=== PATIENT | female | born 1955 | race Caucasian/White ===

== ENCOUNTER → 2020-02-22 11:09 | Outpatient (CLI) | payer MEDICARE, SELFPAY ==
--- NOTE | ~2020-02-22 | MM_ITS ---
EXAMINATION: MM screening [facility] BI w tessie HISTORY: Screening mammogram TECHNIQUE: Craniocaudal and mediolateral oblique 3-D tomosynthesis images were obtained and synthetic 2-D images were generated. CAD analysis was submitted and interpreted. COMPARISON: 10/19/2018, 10/09/2017, 05/22/2016 BREAST PARENCHYMAL COMPOSITION: The breasts are almost entirely fatty. FINDINGS: There is no evidence of suspicious mass, calcification, or architectural distortion to sugg est malignancy in either breast. There has been no suspicious interval change. IMPRESSION: 1. No mammographic evidence of malignancy. 2. Recommend routine screening mammography in one year. BI-RADS Category 1: Negative Reviewed, dictated and finalized at location A.
== END ==
PROVIDERS: Visit Provider Nurse Practitioner Family
DX: Z12.31 Encounter for screening mammogram for malignant neoplasm of breast (principal)
CPT/HCPCS: 77063; 77067

== ENCOUNTER → 2021-06-20 12:02 | Outpatient (CLI) | payer MEDICARE, SELFPAY ==
--- NOTE | ~2021-06-20 | MM_ITS ---
EXAMINATION: MM screening [facility] BI w tessie HISTORY: Screening mammogram TECHNIQUE: Craniocaudal and mediolateral oblique 3-D tomosynthesis images were obtained and synthetic 2-D images were generated. CAD analysis was submitted and interpreted. COMPARISON: 02/22/2020 10/11/2018, 10/09/2017 BREAST PARENCHYMAL COMPOSITION: The breasts are almost entirely fatty. FINDINGS: There is no evidence of suspicious mass, calcification, or architectural distortion to sugg est malignancy in either breast. There has been no suspicious interval change. IMPRESSION: 1. No mammographic evidence of malignancy. 2. Recommend routine screening mammography in one year. BI-RADS Category 1: Negative Reviewed, dictated and finalized at location A. 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
== END ==
PROVIDERS: PCP Nurse Practitioner Family; Visit Provider Nurse Practitioner Family
DX: Z12.31 Encounter for screening mammogram for malignant neoplasm of breast (principal); M79.644 Pain in right finger(s)
CPT/HCPCS: 77063; 77067

== ENCOUNTER → 2022-03-18 10:45 | Outpatient (CLI) | payer MEDICARE, SELFPAY ==
--- NOTE | ~2022-03-18 | XR_ITS ---
XR hip LT min 2V 03/18/2022 11:10 Indication: Left hip pain Procedure: 2 views left hip Comparison: No prior studies for comparison. Findings: There is mild osteoarthritis of the left hip. No fracture, subluxation or dislocation no si gnificant soft tissue abnormality. No foreign bodies. Impression: 1: Mild osteoarthritis of the left hip. Reviewed, dictated and finalized at location B. Impression: 1: Mild osteoarthritis of the left hip.
--- NOTE | ~2022-03-18 | XR_ITS ---
EXAMINATION: XR lumbar spine 2-3V DATE: 03/18/2022 11:11 INDICATION: Low back pain. TECHNIQUE: 3 views of lumbar spine were obtained. COMPARISON: CT abdomen and pelvis 10/24/2018 FINDINGS: There is 3 degrees levocurvature of upper lumbar spine. There is 5 degrees dextrocurvature of lower lumbar spine. There is 7 mm anterolisthesis of L4 on L5. Vertebral body heights are normal. There is mild chronic anterior wedging of T12 vertebral body. There is mildly decreased disc height a t L4-L5 and severely decreased disc height at L5-S1. There is multilevel facet joint osteoarthritis, severe in lower lumbar spine. 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 Surgical clips in the right upper quadrant are likely from cholecystectomy. There are stones in left renal pelvis. IMPRESSION: 1. Severe lower lumbar spondylosis. 2. Stones in left renal pelvis. Reviewed, dictated and finalized at location A.
== END ==
PROVIDERS: PCP Nurse Practitioner Family; Visit Provider Nurse Practitioner Family
DX: M47.896 Other spondylosis, lumbar region (principal); M17.12 Unilateral primary osteoarthritis, left knee
CPT/HCPCS: 72100; 73502

== ENCOUNTER → 2022-04-03 12:37 | Outpatient (CLI) | payer MEDICARE, SELFPAY ==
--- NOTE | ~2022-04-03 | DEXA_ITS ---
Bone Density Report Name: JACOB PENALOZA Age: 66 Sex: Female Ethnicity: White Date of : 1955 Indication: osteopenia; height loss; postmenopausal Referring Provider: Blair, Daly Zapien Study: Bone densitometry was performed. Exam Date: April 03, 2022 Accession number: [id number] Bone Density: Region BMD T-score Z-score Classification AP Spine (L1-L4) 0.767 -2.5 -0.6 Osteoporosis Femoral Neck (Left) 0.632 -2.0 -0.3 Osteopenia Total Hip (Left) 0.956 0.1 1.5 Normal Femoral Neck (Right) 0.753 -0.9 0.8 Normal Total Hip (Right) 0.888 -0.4 0.9 Normal Total Hip Mean 0.922 -0.2 1.2 Normal World Health Organization criteria for BMD impression classify patients as: Normal (T-score at or above -1.0), Osteopenia (T-score between -1.0 and -2.5), or Osteoporosis (T-score at or below -2.5). 10-year Fracture Risk: FRAX not reported because: Some T-score for Spine Total or Hip Total or Femoral Neck at or below -2.5 Previous Exams: Region Exam Age BMD T-score BMD Change BMD Change Date g/cm2 vs Baseline vs Previous AP Spine(L1-L4) 04/03/2022 66 0.767 -2.5 -0.056 -0.056 06/11/2005 49 0.823 -2.0 Total Hip(Left) 04/03/2022 66 0.956 0.1 -0.127* -0.127* 06/11/2005 49 1.082 1.1 Total Hip(Right) 04/03/2022 66 0.888 -0.4 -0.214* -0.214* 06/11/2005 49 1.102 1.3 *Denotes significance at 95% confidence level, LSC for AP Spine = 0.022 g/cm2, LSC for Total Hip = 0.027 g/cm2 Clinical Information Provided by Patient: Has used the following medications: Vitamin D, MTV Patient maximum height was 63.0 Menopause Age: 49 No regular weight bearing exercise Drinks caffeinated beverages Onset of menses at age 13 Number of children 2 Impression: The patient has osteoporosis, based on the Total Spine T-score. The BMD for the Total Hip(Left) decreased, changing by -0.127 since the last DXA exam. The BMD for the Total Hip(Right) decreased, changing by -0.214 since the last DXA exam. Discussion: INCREASED RISK OF FRACTURE. BONE DENSITY IS UNDESIRABLY LOW AT ONE OR MORE SKELETAL SITES, CONSISTENT WITH POSTMENOPAUSAL OSTEOPOROSIS. This patient's lowest T-score meets the World Health Organization's (WHO) criteria for osteoporosis at one or more sites (T-score -2.5 or below). In untreated patients, the risk of osteoporotic fracture increases approximately two-fold for each 1.0 SD decrease in T-score. Low
== END ==
PROVIDERS: PCP Nurse Practitioner Family; Visit Provider Nurse Practitioner Family
DX: Z78.0 Asymptomatic menopausal state (principal); M81.0 Age-related osteoporosis without current pathological fracture; M85.852 Other specified disorders of bone density and structure, left thigh
CPT/HCPCS: 77080

== ENCOUNTER 2022-04-20 11:13 | Emergency (ER) | payer MEDICARE, SELFPAY ==
[2022-04-20 12:30] VITALS: BP 157/89; PULSE 107; RESP 20; TEMP 36.7; O2SAT 99
--- NOTE | 2022-04-20 12:47 | ED.FEMALEGU ---
HPI - Female Genitourinary General Chief complaint: Urogenital-Female Stated complaint: UTI Time Seen by Provider: 04/20/22 12:47 Source: patient Mode of arrival: ambulatory Limitations: no limitations History of Present Illness HPI Narrative: 66 y/o female with history of renal stones, presented for c/o blood drop on underwear today. Endorses occasional dysuria, urgency and frequency. States she was given cephalexin a few weeks ago after calling her PCP for the same complaint. She did not f/u because it resolved. Denies flank pain, abdominal pain, n/v/d/f/c. Patient is also reporting left hip pain that radiates to foot. Onset 12/2021. Described as constant ache, worse with certain movements especially stairs or standing for long periods. She states she has taken a muscle relaxer and started allopurinol, performed physical therapy and established with a chiropractor. She was told she has osteoarthritis in her hips. She endorses she is generally active but this pain is severe and debilitating. She denies numbness, tingling, weakness of the extremity; denies redness or discoloration to the lower extremity; denies injury. Related Data Home Medications Medication Instructions Recorded Confirmed aspirin 81 mg tablet,delayed 81 mg PO DAILY 05/10/19 04/20/22 release (Aspir-) fluticasone propionate 50 1 spray intranasal DAILY PRN 05/10/19 04/20/22 mcg/actuation nasal Congestion spray,suspension losartan 100 mg tablet 100 mg PO QAM 05/10/19 04/20/22 triamterene 37.5 1 cap PO QAM 05/10/19 04/20/22 mg-hydrochlorothiazide 25 mg capsule Allergies Allergy/AdvReac Type Severity Reaction Status Date / Time Sulfa (Sulfonamide AdvReac Mild NAUSEA/VOMI Verified 04/20/22 12:13 Antibiotics) TING Review of Systems Review of Systems: CONSTITUTIONAL: Denies body aches, fever, chills EYES: Denies visual changes ENT: Denies rhinorrhea, congestion CARDIOVASCULAR: Denies chest pain, palpitations, or edema. RESPIRATORY: Denies cough or dyspnea. GASTROINTESTINAL: Denies abdominal pain, nausea, vomiting, or diarrhea. : per HPI SKIN: Denies rash, itching, or wounds. MUSCULOSKELETAL: per HPI NEUROLOGIC: Denies headache, numbness, tingling, or weakness. All systems reviewed & are unremarkable except as noted in HPI and below PMFSH Past Medical History Medical History Arthritis Functional dyspepsia GERD (gastroesophageal reflux disease) Hx of adenomatous polyp of colon Hx of renal calculi Hypertension Rosacea Sleep apnea Surgical History Surgical History History of left knee replacement History of lithotripsy History of right oophorectomy Hx of section Hx of cholecystectomy Hx of colonoscopy Hx of esophagogastroduodenoscopy Family History Family History Mother Hypertension Father Cerebral aneurysm Other Breast cancer Social History Social History Smoking packs per day: 2 Smoking cigarettes per day: 40.0 Years smoked: 10 Smoking pack-years: 20.00 Smoking status: Former smoker Tobacco type: cigarettes Alcohol intake: current Drinks per week: 1 Comments At time of signature, I have reviewed and agree with nursing past medical, surgical, social and family history unless otherwise noted. Please see nursing chart for further information. There is no relevant family history pertinent to the presenting complaint Exam Narrative: GENERAL: Well-appearing EYES: conjunctivae clear NECK: Supple. CHEST: Speaks in full sentences. No respiratory distress. HEART: Regular rate and rhythm. Normal and equal peripheral pulses. EXTREMITIES: Left posterior hip tenderness with deep palpation c/w piriformis pain. LLE has normal strength and sensation, normal range of m
== END 2022-04-20 13:18 | disposition home or self-care (01) ==
PROVIDERS: Emergency Provider Nurse Practitioner Family; PCP Nurse Practitioner Family
DX: R31.9 Hematuria, unspecified (principal); M54.10 Radiculopathy, site unspecified; Z87.891 Personal history of nicotine dependence; K21.9 Gastro-esophageal reflux disease without esophagitis; I10 Essential (primary) hypertension; G47.30 Sleep apnea, unspecified; Z96.652 Presence of left artificial knee joint; M16.0 Bilateral primary osteoarthritis of hip; Z79.82 Long term (current) use of aspirin
CPT/HCPCS: 81003; 87077; 87086; 87186; 99213; G0463

== ENCOUNTER 2022-04-28 11:08 | Emergency (ER) | payer MEDICARE, SELFPAY ==
--- NOTE | ~2022-04-28 | XR_ITS ---
XR chest 1V DATE: 04/28/2022 14:06 INDICATION: Chest pain TECHNIQUE: AP chest COMPARISON: 06/12/2018 AP and lateral chest FINDINGS: Heart size is within normal limits. There is minimal aortic unfolding. No hilar or mediasti nal enlargement is detected. No pulmonary infiltrate or consolidation, pleural effusion or pulmonary vascular congestion or pneumo thorax is detected. Diffuse osteopenia. IMPRESSION: No active cardiopulmonary disease Reviewed, dictated and finalized at location B. 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
--- NOTE | ~2022-04-28 | CT_ITS ---
DATE: 04/28/2022 14:02 INDICATION: Headache. Altered mental status. Memory loss. TECHNIQUE: Computed tomography (CT) of the head was performed without intravenous contrast. The dose- length product was 605.33 mGy-cm. Automated exposure control and iterative reconstruction technique w ere employed. COMPARISON: No prior studies for comparison. FINDINGS: Normal brain parenchymal volume for age. Normal wyman-white differentiation. No acute intrac ranial hemorrhage, infarction, mass or mass effect. There are scattered mild periventricular and subcortical white matter changes, most likely related to small vessel ischemic disease (microangiopathy). No ventriculomegaly or midline shift. Midline sagittal images demonstrate a normal corpus callosum, c raniovertebral junction and sella turcica. Basilar cisterns are patent. Paranasal sinuses and mastoids are pneumatized. No depressed skull fractures. IMPRESSION: 1. No acute intracranial abnormality. Reviewed, dictated and finalized at location A. EAR SCIENTIST
[2022-04-28 12:04] VITALS: BP 166/112; PULSE 108; RESP 18; TEMP 36.6; O2SAT 98
--- NOTE | 2022-04-28 12:12 | ECG_ITS ---
Measurements Intervals [place] Rate: 92 P: 8 IA: 196 QRS: -47 QRSD: 102 T: 58 QT: 355 QTc: 439 Interpretive Statements SINUS RHYTHM PATTERN CONSISTENT WITH PULMONARY DISEASE LEFT ANTERIOR FASCICULAR BLOCK BORDERLINE ECG NO PREVIOUS ECG AVAILABLE FOR COMPARISON Electronically Signed On 04-28-2022 14:47:57 MITER SAWYER by David Brito M.D.
[2022-04-28 12:48] VITALS: PULSE 98
--- NOTE | 2022-04-28 12:57 | ED.GENADULT ---
HPI - General Adult General Chief complaint: Unspecified Stated complaint: bp high, dizziness, left leg pain - no trauma Time Seen by Provider: 04/28/22 12:55 History of Present Illness HPI narrative: 66-year-old female presenting to the emergency department for evaluation of multiple complaints. Patient states she has been undergoing treatment and therapy for an ongoing left-sided sciatica. Patient recently completed a course of steroids on Thursday and states that symptoms worsened over the course of the weekend. Patient is also being treated for a urinary tract infection. Last Thursday patient had a urinalysis done, got a call back from her primary care physician on Thursday that she had a UTI and on she started taking the Macrobid. Patient does take medications for her blood pressure and states that her blood pressure has been elevated. Related Data Home Medications Medication Instructions Recorded Confirmed aspirin 81 mg tablet,delayed 81 mg PO DAILY 05/10/19 04/20/22 release (Aspir-) fluticasone propionate 50 1 spray intranasal DAILY PRN 05/10/19 04/20/22 mcg/actuation nasal Congestion spray,suspension losartan 100 mg tablet 100 mg PO QAM 05/10/19 04/20/22 triamterene 37.5 1 cap PO QAM 05/10/19 04/20/22 mg-hydrochlorothiazide 25 mg capsule Allergies Allergy/AdvReac Type Severity Reaction Status Date / Time Sulfa (Sulfonamide AdvReac Mild NAUSEA/VOMI Verified 04/28/22 12:49 Antibiotics) TING Review of Systems Review of Systems: CONSTITUTIONAL: Denies fever, chills, or sweats. EYES: Denies visual changes, redness, or discharge. ENT: Denies rhinorrhea, congestion, sore throat, or otalgia. CARDIOVASCULAR: See HPI RESPIRATORY: Denies cough or dyspnea. GASTROINTESTINAL: Denies abdominal pain, nausea, vomiting, or diarrhea. GENITOURINARY: Denies dysuria or hematuria. SKIN: Denies rash or itching. MUSCULOSKELETAL: See HPI NEUROLOGIC: Denies headache, numbness, or weakness. [facility] Past Medical History Medical History (Updated 04/28/22 @ 18:56 by Reji Goss MD) Arthritis Functional dyspepsia GERD (gastroesophageal reflux disease) Hx of adenomatous polyp of colon Hx of renal calculi Hypertension Rosacea Sleep apnea Surgical History Surgical History History of left knee replacement History of lithotripsy History of right oophorectomy Hx of section Hx of cholecystectomy Hx of colonoscopy Hx of esophagogastroduodenoscopy Family History Family History Mother Hypertension Father Cerebral aneurysm Other Breast cancer Social History Social History Smoking packs per day: 2 Smoking cigarettes per day: 40.0 Years smoked: 10 Smoking pack-years: 20.00 Smoking status: Former smoker Tobacco type: cigarettes Alcohol intake: current Drinks per week: 1 Exam Narrative: APPEARANCE: Well appearing, no pain, no distress, well-nourished. HEAD: normocephalic, atraumatic. EYES: PERRLA/EOMI, conjunctivae clear. NOSE: Normal no drainage EARS:TMS clear with good light reflex. THROAT: Pharynx clear, no exudate. NECK: Supple. No adenopathy, no masses. RESPIRATORY: Airway patent, respirations nonlabored. Clear to auscultation bilaterally, no rales, rhonchi, wheezing. CARDIOVASCULAR: Regular rate and rhythm without murmurs rubs or gallops. ABDOMINAL: Soft, nontender, nondistended, normal bowel sounds MUSCULOSKELETAL: Moves all extremities. Strength/ROM intact, No edema, No calf tenderness. NEURO: Alert. Cranial nerves II through XII intact. Grossly intact SKIN: Warm, dry. Normal Color Course Course Emergency Course: Patient had no significant urinary tract infection but is still on antibiotics. Patient's blood pressure did improve with treatment. Patient had negative serial troponins. Iggy
[2022-04-28] MEDS: hydrALAZINE HCL 20 MG/ML VIAL 10 MG IV PUSH (13:42)
[2022-04-28] MEDS: CYCLOBENZAPRINE HCL 10 MG TABLET PO (13:42)
[2022-04-28] MEDS: HYDROmorphone HCL INJ (*CRX) 1 MG/ML SYR 0.5 MG IV PUSH (13:43)
[2022-04-28 14:05] LABS: Appearance Urine Clear (Clear); Bilirubin Urine Negative (Negative); Blood Urine Negative (Negative); Color Urine Yellow (Yellow); Glucose Urine UA Negative (Negative); Ketones Urine Negative (Negative); Leukocyte Esterase Ur Trace LEU/UL (Negative); Nitrate Urine Negative (Negative); Protein Urine Negative (Negative); Specific Grav Ur <= 1.005 (1.001-1.035); Urobilinogen Urine 0.2 mg/dL (<2.0)
[2022-04-28 14:10] LABS: Alanine Aminotransferase 62 U/L (6-35); Albumin Level 5.1 g/dL (3.5-5.1); Alkaline Phosphatase 73 U/L (38-126); Anion Gap 10 mmol/L (8-16); Aspartate Amino Transferase 35 U/L (14-36); Basophils Absolute Auto 0.1 K/mm3 (0.0-0.1); Basophils Percent Auto 1.3 % (0.2-1.2); Bilirubin,Total 0.9 mg/dL (0.2-1.3); Blood Urea Nitrogen 20 mg/dL (7-17); Calcium 10.3 mg/dL (8.4-10.2); Carbon Dioxide 25 mmol/L (22-30); Chloride 100 mmol/L (98-107); Eosinophils Absolute Auto 0.3 K/mm3 (0-0.3); Eosinophils Percent Auto 4.2 % (0-4.4); Estimated CRCL calculation 63 ml/min; Estimated Glomerular Filt Rate > 60; Glucose 94 mg/dL (65-110); Hemoglobin 13.8 g/dL (12.0-15.0); Immature Granulocyte Absolute 0.12 K/mm3 (0.00-0.031); Immature Granulocyte Percent A 1.5 % (0-0.5); Lymphocytes Absolute Auto 1.99 K/mm3 (0.9-3.2); Mean Corpuscular HGB Conc 33.7 g/dl (32-36); Mean Corpuscular Volume 95.1 fl (80-100); Mean Platelet Volume 10.4 fl (7.4-10.4); Monocytes Absolute Auto 0.6 K/mm3 (0.1-0.6); Monocytes Percent Auto 8.1 % (2.6-8.5); Neutrophils Absolute Auto 4.8 K/mm3 (1.3-6.7); Neutrophils Percent Auto 59.9 % (45.5-73.1); Platelet Count Result 263 k/mm3 (150-375); Potassium 4.2 mmol/L (3.4-5.0); Red Blood Count 4.31 M/mm3 (4.2-5.4); Red Cell Distribution Width 13.9 % (11.5-14.5); Sodium 135 mmol/L (137-145)
[2022-04-28 14:21] LABS: Bacteria Urine 1+ /hpf; RBC Urine 0-2 /hpf (0-2); Squamous Epithelial Cell Urine Occasional /hpf (Few); WBC Urine 0-3 /hpf
[2022-04-28 14:22] LABS: Troponin I < 0.012 ng/mL (0.000-0.034)
[2022-04-28 14:34] LABS: Add Urine Microscopic? YES
[2022-04-28 14:41] VITALS: BP 183/81; PULSE 104; RESP 20; O2SAT 98
[2022-04-28 15:37] VITALS: BP 153/83; PULSE 90; RESP 18; O2SAT 98
[2022-04-28 17:24] LABS: Troponin I < 0.012 ng/mL (0.000-0.034)
[2022-04-28] MEDS: HYDROcodone/acetaminophen (*CRX) 5-325 MG TABLET 1 TAB PO (19:19)
[2022-04-28 19:28] VITALS: BP 168/90; PULSE 86; RESP 18; O2SAT 98
== END 2022-04-28 19:30 | disposition home or self-care (01) ==
PROVIDERS: Emergency Provider Emergency Medicine; PCP Nurse Practitioner Family
DX: M54.32 Sciatica, left side (principal); R07.9 Chest pain, unspecified; I10 Essential (primary) hypertension; K21.9 Gastro-esophageal reflux disease without esophagitis; K30 Functional dyspepsia; M19.90 Unspecified osteoarthritis, unspecified site; G47.30 Sleep apnea, unspecified; Z96.652 Presence of left artificial knee joint; Z90.721 Acquired absence of ovaries, unilateral; Z87.442 Personal history of urinary calculi; Z86.010 Personal history of colon polyps; Z87.891 Personal history of nicotine dependence; Z79.82 Long term (current) use of aspirin; I44.4 Left anterior fascicular block; R94.31 Abnormal electrocardiogram [ECG] [EKG]
CPT/HCPCS: 36415; 70450; 71045; 80053; 81001; 84484; 85025; 93005; 96374; 96375; 99284; A9270; J0360; J1170

== ENCOUNTER → 2022-04-30 16:38 | Outpatient (CLI) | payer MEDICARE, SELFPAY ==
--- NOTE | ~2022-04-30 | MR_ITS ---
EXAMINATION: MR lumbar spine wo con DATE: 04/30/2022 17:33 INDICATION: Lumbar spondylosis TECHNIQUE: Magnetic resonance imaging (MRI) of the lumbar spine was performed without intravenous con trast. Sequences included sagittal T2-weighted FSE, sagittal T2-weighted FS FSE, sagittal T1-weighted FSE, and axial T2-weighted FSE. COMPARISON: Lumbar spine radiographs dated 03/18/2022 FINDINGS: 2 mm anterolisthesis L4 on L5 and L5 on S1. Vertebral body heights are normal. There are scattered fi brofatty degenerative endplate changes most prominent at L5-S1. Marrow signal is otherwise normal. Mi ld disc height loss at T10-T11, T11-T12 and T12-L1. Mild to moderate disc height loss at L4-L5. Sever e disc height loss at L5-S1. The conus medullaris terminates at L2. There is normal signal in the cau jewell spinal cord. Paravertebral soft tissues are unremarkable. The following disc levels are specifica lly discussed: T12-L1: Disc is bulging. There is mild bilateral facet joint osteoarthritis. There is no neural ky inal stenosis. There is mild central canal stenosis. L1-L2: The disc does not extend beyond the endplate margin. There is minimal bilateral facet joint os teoarthritis. There is no neural foraminal stenosis. There is no central canal stenosis. L2-L3: Disc is minimally bulging. There is minimal right facet joint osteoarthritis. There is mild bi lateral neural foraminal stenosis. There is no central canal stenosis. L3-L4: The disc does not extend beyond the endplate margin. There is mild bilateral facet joint osteo arthritis. There is no neural foraminal stenosis. There is no central canal stenosis. L4-L5: Disc is moderately bulging with annular fissure. There is hypertrophy of the ligamentum flavum . There is severe bilateral facet joint osteoarthritis. Small amount of fluid the remodele d articular surfaces of the bilateral facet joints which are by approximately 4 mm AP sugge sting at least a similar degree of potential increased anterolisthesis of L4 on L5 which can be obser parth on the prior standing radiographs. There is mild to moderate bilateral neural foraminal stenosis. There is mild central canal stenosis. L5-S1: Annular fissure and small disc extrusion extending from foraminal zone to foraminal zone with disc material extending couple millimeters cephalad to the level of the inferior endplate of L5. Ther e is hypertrophy of the ligamentum flavum. There is moderate bilateral facet joint osteoarthritis. T here is mild right and moderate left neural foraminal stenosis. There is no central canal stenosis. IMPRESSION: 1. Spondylosis, severe at the lumbosacral junction mild in the cephalad lumbar and lower thoracic spi ne. 2. 2 mm anterolisthesis L4 on L5 and L5-S1 in the supine position. 4 mm AP separation of the articula r surface of the L4-L5 facet joints accounts for the significantly greater degree of anterolisthesis seen on the prior radiographs obtained in standing position. Reviewed, dictated and finalized at location A. RVISOR TELEVISION CHASSIS REPAIR IMPRESSION: 1. Spondylosis, severe at the lumbosacral junction mild in the cephalad lumbar and lower thoracic spine. 2. 2 mm anterolisthesis L4 on L5 and L5-S1 in the supine position. 4 mm AP sepa ration of the articular surface of the L4-L5 facet joints accounts for the sign ificantly greater degree of anterolisthesis seen on the prior radiographs obtai josr in standing position.
== END ==
PROVIDERS: PCP Nurse Practitioner Family; Visit Provider Nurse Practitioner Family
DX: M47.896 Other spondylosis, lumbar region (principal)
CPT/HCPCS: 72148

== ENCOUNTER → 2022-06-23 10:18 | Outpatient (CLI) | payer MEDICARE, SELFPAY ==
--- NOTE | ~2022-06-23 | MM_ITS ---
EXAMINATION: MM screening [facility] BI w tessie HISTORY: Screening TECHNIQUE: Craniocaudal and mediolateral oblique 3-D tomosynthesis images were obtained and synthetic 2-D images were generated. CAD analysis was submitted and interpreted. COMPARISON: Comparison to multiple prior studies sequentially, with oldest reviewed study dated 04/24. BREAST PARENCHYMAL COMPOSITION: There are scattered areas of fibroglandular density. FINDINGS: There is no evidence of suspicious mass, calcification, or architectural distortion to sugg est malignancy in either breast. There has been no suspicious interval change. IMPRESSION: 1. No mammographic evidence of malignancy. 2. Recommend routine screening mammography in one year. BI-RADS Category 1: Negative Reviewed, dictated and finalized at location A. R
== END ==
PROVIDERS: PCP Nurse Practitioner Family; Visit Provider Nurse Practitioner Family
DX: Z12.31 Encounter for screening mammogram for malignant neoplasm of breast (principal)
CPT/HCPCS: 77063; 77067

== ENCOUNTER → 2022-07-02 11:19 | Outpatient (CLI) | payer MEDICARE, SELFPAY ==
--- NOTE | ~2022-07-02 | XR_ITS ---
Right Knee Technique: AP, lateral, and sunrise views were obtained. Clinical History: Pain Findings: No fracture or dislocation is seen. There is medial compartment narrowing, with moderate de generative change of the medial compartment and mild spurring of the lateral and patellofemoral monica rtments. Soft tissues are unremarkable. No joint effusion is seen. Impression: Moderate to advanced degenerative change of the medial compartment. Mild degenerative change of the lateral and patellofemoral compartments. Reviewed, dictated and finalized at location M. ERMAKER Impression: Moderate to advanced degenerative change of the medial compartment. Mild degenerative change of the lateral and patellofemoral compartments.
== END ==
PROVIDERS: PCP Nurse Practitioner Family; Visit Provider Nurse Practitioner Family
DX: M25.561 Pain in right knee (principal)
CPT/HCPCS: 73562

== ENCOUNTER → 2022-10-09 10:32 | Outpatient (CLI) | payer MEDICARE, SELFPAY ==
--- NOTE | ~2022-10-09 | US_ITS ---
Pelvic ultrasound. Clinical History: Postmenopausal bleeding Technique: Realtime transabdominal and transvaginal scanning of the pelvis was performed. Color flow Doppler and Doppler spectral analysis were performed. Findings: The uterus is anteverted. The endometrial stripe has a thickness of 3 mm. No focal mass is identified. Neither ovary seen. No adnexal mass seen. There is no evidence of free fluid in the cul de sac. Impression: No significant abnormality seen. Neither ovary visualized. Reviewed, dictated and finalized at location . Impression: No significant abnormality seen. Neither ovary visualized.
== END ==
PROVIDERS: PCP Nurse Practitioner Family; Visit Provider Registered Nurse
DX: N95.0 Postmenopausal bleeding (principal)
CPT/HCPCS: 76830; 76856

== ENCOUNTER 2023-06-11 08:05 | Emergency (ER) | payer MEDICARE, SELFPAY ==
[2023-06-11] VITALS (8 sets, daily range): BP systolic 117–140; BP diastolic 76–87; PULSE 63–78; RESP 13–24; TEMP 36.4–36.7; O2SAT 96–100
--- NOTE | ~2023-06-11 | XR_ITS ---
EXAMINATION: XR chest 1V portable 06/11/2023 10:58 INDICATION: Cough and weakness PROCEDURE: AP portable chest COMPARISON: Comparison to multiple prior studies sequentially, with oldest reviewed study dated 09/04. FINDINGS: The lungs are clear. The cardiomediastinal silhouette is within normal limits. There are no pleural effusions. There is no pneumothorax suspected. IMPRESSION: 1: NO ACUTE CARDIOPULMONARY DISEASE. Reviewed, dictated and finalized at location A. LBOARD TANK PUMPER
--- NOTE | 2023-06-11 08:52 | ECG_ITS ---
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
[2023-06-11 09:22] LABS: Basophils Absolute Auto 0.1 K/mm3 (0.0-0.1); Basophils Percent Auto 0.8 % (0.2-1.2); Eosinophils Absolute Auto 0.2 K/mm3 (0-0.3); Eosinophils Percent Auto 2.4 % (0-4.4); Hematocrit 35.2 % (37.0-47.0); Hemoglobin 11.7 g/dL (12.0-15.0); Immature Granulocyte Absolute 0.03 K/mm3 (0.00-0.031); Immature Granulocyte Percent A 0.3 % (0-0.5); Lymphocytes Absolute Auto 1.05 K/mm3 (0.9-3.2); Lymphocytes Percent Auto 12.1 % (18.3-44.2); Mean Corpuscular HGB Conc 33.2 g/dl (32-36); Mean Corpuscular Hemoglobin 31.7 pg (26-34); Mean Corpuscular Volume 95.4 fl (80-100); Mean Platelet Volume 10.1 fl (7.4-10.4); Monocytes Absolute Auto 1.2 K/mm3 (0.1-0.6); Monocytes Percent Auto 14.3 % (2.6-8.5); Neutrophils Absolute Auto 6.1 K/mm3 (1.3-6.7); Neutrophils Percent Auto 70.1 % (45.5-73.1); Platelet Count Result 267 k/mm3 (150-375); Red Blood Count 3.69 M/mm3 (4.2-5.4); Red Cell Distribution Width 13.9 % (11.5-14.5); White Blood Count 8.7 K/mm3 (4.5-10.0)
[2023-06-11 09:26] LABS: Appearance Urine Cloudy (Clear); Bacteria Urine 4+ /hpf; Bilirubin Urine Negative (Negative); Blood Urine Negative (Negative); Color Urine Yellow (Yellow); Glucose Urine UA Negative (Negative); Ketones Urine Negative (Negative); Leukocyte Esterase Ur 2+ LEU/UL (Negative); Nitrate Urine Positive (Negative); Non Pathogenic Casts 0-2; Protein Urine Negative (Negative); RBC Urine 0-2 /hpf (0-2); Specific Grav Ur 1.014 (1.001-1.035); Squamous Epithelial Cell Urine Few /hpf (Few); WBC Urine 21-50 /hpf
[2023-06-11 09:31] LABS: Add Urine Microscopic? YES
[2023-06-11 09:42] LABS: Alanine Aminotransferase 30 U/L (6-35); Albumin Level 4.3 g/dL (3.5-5.1); Alkaline Phosphatase 71 U/L (38-126); Anion Gap 12 mmol/L (8-16); Aspartate Amino Transferase 24 U/L (14-36); Bilirubin,Total 1.2 mg/dL (0.2-1.3); Blood Urea Nitrogen 21 mg/dL (7-17); Calcium 11.1 mg/dL (8.4-10.2); Carbon Dioxide 23 mmol/L (22-30); Chloride 98 mmol/L (98-107); Estimated CRCL calculation 49 ml/min; Estimated Glomerular Filt Rate 49; Glucose 118 mg/dL (65-110); Lipase 152 U/L (23-300); Potassium 3.5 mmol/L (3.4-5.0); Sodium 133 mmol/L (137-145)
--- NOTE | 2023-06-11 10:19 | ED.GENADULT ---
HPI - General Adult General Chief complaint: Nausea/Vomiting/Diarrhea Stated complaint: sick all week Time Seen by Provider: 06/11/23 09:12 History of Present Illness HPI narrative: Patient is a 67-year-old female who presents to the emergency department this morning complaining of feeling of general malaise and feeling sick all week. Patient states that she has been having nausea, vomiting, and diarrhea on and off this past week. Patient has not had any vomiting episodes today and did vomit once yesterday, nonbloody nonbilious emesis. Patient decided to come into the emergency department for further evaluation. She denies any contacts at home or exposure to known COVID or influenza. Patient denies any chest pain, shortness of breath, nausea, vomiting, abdominal pain, dysuria, hematuria, constipation, diarrhea, melena, hematochezia, fevers or chills. Patient also denies any headaches, dizziness, lightheadedness, blurry visions, focal weakness, numbness and or tingling. There are no other modifying, alleviating, or precipitating factors at this time. Related Data Home Medications Medication Instructions Recorded Confirmed aspirin 81 mg tablet,delayed 81 mg PO DAILY 05/10/19 04/20/22 release (Aspir-) losartan 100 mg tablet 100 mg PO QAM 05/10/19 04/20/22 triamterene 37.5 1 cap PO QAM 05/10/19 04/20/22 mg-hydrochlorothiazide 25 mg capsule alendronate 70 mg tablet 70 mg PO WEEKLY 09/09/22 allopurinol 100 mg tablet 100 mg PO BID 09/09/22 amlodipine 5 mg tablet 5 mg PO DAILY 09/09/22 cetirizine 10 mg tablet (Allergy 10 mg PO DAILY PRN 09/09/22 Relief (cetirizine)) famotidine 20 mg tablet 20 mg PO DAILY 09/09/22 gabapentin 300 mg capsule 300 mg PO BID 09/09/22 hydroxyzine HCl 25 mg tablet 25 mg PO TID PRN 09/09/22 tramadol 50 mg tablet 50 mg PO Q6H PRN 09/09/22 phentermine 15 mg capsule 15 mg PO DAILY 09/30/22 triamterene 37.5 1 cap PO DAILY 09/30/22 mg-hydrochlorothiazide 25 mg capsule Allergies Allergy/AdvReac Type Severity Reaction Status Date / Time Sulfa (Sulfonamide AdvReac Mild NAUSEA/VOMI Verified 10/31/22 08:35 Antibiotics) TING Review of Systems Review of Systems: All systems are reviewed and are negative unless stated otherwise in the HPI. [facility] Past Medical History Medical History Allergies Arthritis Functional dyspepsia GERD (gastroesophageal reflux disease) Hx of adenomatous polyp of colon Hx of renal calculi Hypertension Rosacea Sleep apnea Surgical History Surgical History H/O tubal ligation History of left knee replacement History of lithotripsy History of right oophorectomy Hx of section Hx of cholecystectomy Hx of colonoscopy Hx of esophagogastroduodenoscopy Family History Family History Mother Hypertension Father Cerebral aneurysm Other Breast cancer Social History Social History Smoking packs per day: 2 Smoking cigarettes per day: 40.0 Years smoked: 10 Smoking pack-years: 20.00 Smoking status: Former smoker Tobacco type: cigarettes Alcohol intake: current Drinks per week: 1 Substance use: never Lack of Transportation: No Lack of Food: Never True Current Housing: I Have Housing Concerned About Future Housing: No Difficulty Paying Gas/Electric Bills: No Difficulty Paying for Meds: No Currently Unemployed: No Education: Trade/Vocational Certificate Difficulty w/ Childcare or Family Care: No Exam Narrative: General: Alert, awake, afebrile, in no acute distress. HEENT: PERRL, no rhinorrhea, no post nasal drip, oropharynx clear. Neck: Trachea midline, no JVD, no lymphadenopathy. Cardiovascular: Regular rate and rhythm, no murmurs, rubs or gallops, no peripheral edema. Resp
[2023-06-11] MEDS: SODIUM CHLORIDE 0.9% IV 1,000 ML 999 ML IV CONT (10:27)
[2023-06-11] MEDS: ONDANSETRON INJ 4 MG/2 ML VIAL IV PUSH (10:27)
[2023-06-11 11:26] LABS: Influenza A QL RT-PCR Negative (Negative); Influenza B QL RT-PCR Negative (Negative); SARS-CoV-2 RNA PCR Negative (Negative)
== END 2023-06-11 11:46 | disposition home or self-care (01) ==
PROVIDERS: Emergency Provider Emergency Medicine; PCP Nurse Practitioner Family
DX: N39.0 Urinary tract infection, site not specified (principal); A08.4 Viral intestinal infection, unspecified; E86.0 Dehydration; Z20.822 Contact with and (suspected) exposure to COVID-19; I10 Essential (primary) hypertension; G47.30 Sleep apnea, unspecified; K21.9 Gastro-esophageal reflux disease without esophagitis; M19.90 Unspecified osteoarthritis, unspecified site; Z87.440 Personal history of urinary (tract) infections; Z79.82 Long term (current) use of aspirin; Z96.652 Presence of left artificial knee joint; Z90.721 Acquired absence of ovaries, unilateral; Z90.49 Acquired absence of other specified parts of digestive tract
CPT/HCPCS: 36415; 71045; 80053; 81001; 83690; 85025; 87086; 87088; 87636; 93005; 96365; 96375; 99284; J0696; J2405; J7030

== ENCOUNTER 2023-11-04 08:39 | Emergency (ER) | payer MEDICARE, SELFPAY ==
--- NOTE | ~2023-11-04 | US_ITS ---
EXAMINATION: US venous doppler LE RT DATE: 11/04/2023 09:14 INDICATION: Right lower limb pain TECHNIQUE: Grayscale ultrasound images without and with compression and Doppler ultrasound images of the right lower extremity veins were obtained. COMPARISON: None. FINDINGS: The visualized portions of right common femoral vein, profunda (deep) femoral vein, femoral vein, pop liteal vein, anterior tibial veins, posterior tibial veins, peroneal veins, gastrocnemius vein and gr eater saphenous vein outflow are patent. IMPRESSION: 1. No deep venous thrombosis in the right lower limb. Reviewed, dictated and finalized at location A.
[2023-11-04 08:41] VITALS: BP 163/88; PULSE 95; RESP 18; TEMP 36.8; O2SAT 100
[2023-11-04] MEDS: KETOROLAC 30 MG/ML VIAL (*BKC) IM (08:51)
--- NOTE | 2023-11-04 09:06 | ED.EXTPRO ---
HPI - Extremity Problem General Chief complaint: Extremity Problem,Nontraumatic Stated complaint: RLE pain Time Seen by Provider: 11/04/23 08:41 History of Present Illness HPI Narrative: Patient is 59-year-old female who presents ER with pain to right lower extremity. Chronic for years. Typically in knee in calf. Over last 24 hours that has gone up into her right thigh. No swelling. She is concerned for DVT. She reports pain was worsened after she when outside helping move some blood that they were using to build a deck. Does not recall any injury however. No numbness or tingling. Usually she has improvement of pain with tramadol during the day and her symptoms are worse at night. Related Data Home Medications Medication Instructions Recorded Confirmed aspirin 81 mg tablet,delayed 81 mg PO DAILY 05/10/19 04/20/22 release (Aspir-) losartan 100 mg tablet 100 mg PO QAM 05/10/19 04/20/22 alendronate 70 mg tablet 70 mg PO WEEKLY 09/09/22 amlodipine 5 mg tablet 5 mg PO DAILY 09/09/22 cetirizine 10 mg tablet (Allergy 10 mg PO DAILY PRN 09/09/22 Relief (cetirizine)) famotidine 20 mg tablet 20 mg PO DAILY 09/09/22 tramadol 50 mg tablet 50 mg PO Q6H PRN 09/09/22 triamterene 37.5 1 cap PO DAILY 09/30/22 mg-hydrochlorothiazide 25 mg capsule allopurinol 300 mg tablet 300 mg PO DAILY 10/22/23 Allergies Allergy/AdvReac Type Severity Reaction Status Date / Time Sulfa (Sulfonamide AdvReac Mild NAUSEA/VOMI Verified 11/04/23 08:45 Antibiotics) TING Review of Systems Constitutional: Constitutional: Reports no additional constitutional complaints Respiratory: Respiratory: Reports no additional respiratory complaints Gastrointestinal: Gastrointestinal: Reports no additional gastrointestinal complaints Musculoskeletal: Musculoskeletal: Denies back pain, Denies arthralgias and Denies joint swelling Neurologic: Reports system reviewed and no additional complaints, except as documented PMF Past Medical History Medical History Allergies Arthritis Functional dyspepsia GERD (gastroesophageal reflux disease) Hx of adenomatous polyp of colon Hx of renal calculi Hypertension Rosacea Sleep apnea Surgical History Surgical History H/O tubal ligation History of left knee replacement History of lithotripsy History of right oophorectomy Hx of section Hx of cholecystectomy Hx of colonoscopy Hx of esophagogastroduodenoscopy Family History Family History Mother Hypertension Father Cerebral aneurysm Other Breast cancer Social History Social History Smoking packs per day: 2 Smoking cigarettes per day: 40.0 Years smoked: 10 Smoking pack-years: 20.00 Smoking status: Former smoker Tobacco type: cigarettes Alcohol intake: current Drinks per week: 1 Substance use: never Lack of Transportation: No Lack of Food: Never True Current Housing: I Have Housing Concerned About Future Housing: No Difficulty Paying Gas/Electric Bills: No Difficulty Paying for Meds: No Currently Unemployed: No Education: Trade/Vocational Certificate Difficulty w/ Childcare or Family Care: No Exam Narrative: GENERAL: Well-appearing, well-nourished, and in no acute distress. HEAD: Normocephalic, atraumatic. ENT: Mucous membranes moist. BACK: no midline tenderness T/L spine. No SI tenderness or paraspinal tenderness. EXTREMITIES: Normal range of motion. No edema. No reproducible discomfort in the patient's lower extremity. SKIN: Warm, dry, no rash. NEURO: Alert and oriented x3. PSYCH: Normal mood and affect. Course Course Emergency Course: Patient resting comfortably. Received Toradol IM. Ultrasound without DVT. Discharge home with anti-inflammatorie
[2023-11-04 09:50] VITALS: BP 142/94; PULSE 79; RESP 18; O2SAT 99
== END 2023-11-04 09:51 | disposition home or self-care (01) ==
PROVIDERS: Emergency Provider Emergency Medicine; PCP Family Medicine
DX: M54.16 Radiculopathy, lumbar region (principal); I10 Essential (primary) hypertension; M19.90 Unspecified osteoarthritis, unspecified site; K21.9 Gastro-esophageal reflux disease without esophagitis; G47.30 Sleep apnea, unspecified; Z86.010 Personal history of colon polyps; Z87.442 Personal history of urinary calculi; Z87.891 Personal history of nicotine dependence; Z96.652 Presence of left artificial knee joint; Z90.721 Acquired absence of ovaries, unilateral; Z79.899 Other long term (current) drug therapy; Z79.82 Long term (current) use of aspirin
CPT/HCPCS: 93971; 96372; 99284; J1885

== ENCOUNTER 2023-11-09 14:18 | Outpatient (CLI) | payer MEDICARE, SELFPAY ==
--- NOTE | ~2023-11-09 | XR_ITS ---
XR sacroiliac joints min 3V Ordering provider: Nicole Mckeon, EXTERIOR INTERIOR SPECIALIST History: . Pain in right knee . Comparison: None. FINDINGS: BONES: No acute fracture or dislocation. Degenerative changes of the spine. JOINTS: The bilateral sacroiliac joint spaces appear well maintained. No bony fusion of the sacroilia c joints or bony erosions. SOFT TISSUES: Unremarkable. IMPRESSION: NO ACUTE OSSEOUS ABNORMALITY. NORMAL SACROILIAC JOINTS. Reviewed, dictated and finalized at location A.
--- NOTE | ~2023-11-09 | XR_ITS ---
EXAM: XR knee RT 3V DATE: 11/09/2023 15:03 HISTORY: Pain in right knee . COMPARISON: 06/27 523. FINDINGS: Normal mineralization. No fracture or dislocation. No lytic or blastic lesion. Severe medi al joint space narrowing. Loss of the normal valgus alignment. Tricompartmental osteophytosis, modera te in the medial compartment. No erosion or periosteal change. Soft tissues within normal limits. IMPRESSION: Right knee osteoarthritis, severe in the medial compartment. Reviewed, dictated and finalized at location K.
== END 2023-11-09 14:19 ==
PROVIDERS: PCP Chiropractor
DX: M17.11 Unilateral primary osteoarthritis, right knee (principal)
CPT/HCPCS: 72202; 73562

== ENCOUNTER 2024-02-05 14:27 | Outpatient (CLI) | payer MEDICARE, SELFPAY ==
--- NOTE | ~2024-02-05 | MM_ITS ---
EXAMINATION: MM screening [facility] BI w tessie HISTORY: Screening mammogram TECHNIQUE: Craniocaudal and mediolateral oblique 3-D tomosynthesis images were obtained and synthetic 2-D images were generated. CAD analysis was submitted and interpreted. COMPARISON: 06/23/2022, 06/20/2021, 02/22/2020 BREAST PARENCHYMAL COMPOSITION:Not Dense. There are scattered areas of fibroglandular density. FINDINGS: No suspicious mass, calcification, or architectural distortion are identified in either hernandez ast to suggest malignancy. There has been no suspicious interval change. IMPRESSION: No mammographic evidence of malignancy. Recommend routine screening mammography in one year. BI-RADS Category 1: Negative Reviewed, dictated and finalized at location .
== END 2024-02-05 14:28 | disposition home or self-care (01) ==
LOC: MICIMG 14:28
PROVIDERS: PCP Family Medicine; Visit Provider Family Medicine
DX: Z12.31 Encounter for screening mammogram for malignant neoplasm of breast (principal)
CPT/HCPCS: 77063; 77067

== ENCOUNTER 2024-06-15 12:45 | Emergency (ER) | payer MEDICARE, SELFPAY ==
--- NOTE | ~2024-06-15 | XR_ITS ---
EXAMINATION: XR chest 1V portable DATE: 06/15/2024 13:30 INDICATION: Shortness of breath. TECHNIQUE: A single frontal view of the chest was obtained. COMPARISON: Chest single view 06/11/2023 FINDINGS: There is no pneumonia, pleural effusion, or pneumothorax. The heart size is normal. IMPRESSION: 1. No acute cardiopulmonary disease. Reviewed, dictated and finalized at location B. [facility]
--- NOTE | 2024-06-15 12:55 | ED.GENADULT ---
HPI - General Adult General Chief complaint: Allergic Reaction Stated complaint: ALL RX TO MACROBID Time Seen by Provider: 06/15/24 12:49 History of Present Illness HPI narrative: 68-year-old female with history of allergic reaction to Bactrim was treated for most recent urinary tract infection with Macrobid. Patient took her Macrobid at 11 and began having feeling flushed, nausea vomiting rash on face with some shortness of breath. Patient arrives to the Emergency Department appearing to be allergic reaction. Related Data Home Medications ?Medication ?Instructions ?Recorded ?Confirmed ?Last Taken ?Type aspirin 81 mg tablet,delayed 81 mg PO DAILY 05/10/19 04/20/22 Unknown History release (Aspir-) losartan 100 mg tablet 100 mg PO QAM 05/10/19 04/20/22 05/12/19 07:00 History alendronate 70 mg tablet 70 mg PO WEEKLY 09/09/22 Unknown History amlodipine 5 mg tablet 5 mg PO DAILY 09/09/22 Unknown History cetirizine 10 mg tablet (Allergy 10 mg PO DAILY PRN 09/09/22 Unknown History Relief (cetirizine)) famotidine 20 mg tablet 20 mg PO DAILY 09/09/22 Unknown History tramadol 50 mg tablet 50 mg PO Q6H PRN 09/09/22 Unknown History triamterene 37.5 1 cap PO DAILY 09/30/22 Unknown History mg-hydrochlorothiazide 25 mg capsule allopurinol 300 mg tablet 300 mg PO DAILY 10/22/23 Unknown History Allergies Allergy/AdvReac Type Severity Reaction Status Date / Time nitrofurantoin (From Allergy Severe Swelling Verified 06/15/24 13:27 Macrobid) Sulfa (Sulfonamide AdvReac Mild NAUSEA/VOMI Verified 06/15/24 13:27 Antibiotics) TING Review of Systems Review of Systems: All systems reviewed & are unremarkable except as noted in HPI and below PMFSH Past Medical History Medical History Allergies Arthritis Functional dyspepsia GERD (gastroesophageal reflux disease) Hx of adenomatous polyp of colon Hx of renal calculi Hypertension Rosacea Sleep apnea Surgical History Surgical History H/O tubal ligation History of left knee replacement History of lithotripsy History of right oophorectomy Hx of section Hx of cholecystectomy Hx of colonoscopy Hx of esophagogastroduodenoscopy Family History Family History Mother Hypertension Father Cerebral aneurysm Other Breast cancer Social History Social History Smoking packs per day: 2 Smoking cigarettes per day: 40.0 Years smoked: 10 Smoking pack-years: 20.00 Smoking status: Former smoker Tobacco type: cigarettes Alcohol intake: current Drinks per week: 1 Substance use: never Lack of Transportation: No Lack of Food: Never True Current Housing: I Have Housing Concerned About Future Housing: No Difficulty Paying Gas/Electric Bills: No Difficulty Paying for Meds: No Currently Unemployed: No Education: Trade/Vocational Certificate Difficulty w/ Childcare or Family Care: No Exam Narrative: APPEARANCE: Flushed face HEAD: normocephalic, atraumatic. EYES: PERRLA/EOMI, conjunctivae clear. NOSE: Normal no drainage EARS:TMS clear with good light reflex. THROAT: Pharynx clear, no exudate. NECK: Supple. No adenopathy, no masses. RESPIRATORY: Airway patent, respirations nonlabored. Clear to auscultation bilaterally, no rales, rhonchi, wheezing. CARDIOVASCULAR: Regular rate and rhythm without murmurs rubs or gallops. ABDOMINAL: Soft, nontender, nondistended, normal bowel sounds MUSCULOSKELETAL: Moves all extremities. Strength/ROM intact, No edema, No calf tenderness. NEURO: Alert. Cranial nerves II through XII intact. Grossly intact SKIN: Warm, dry. Normal Color Course Vital Signs Vital signs: Vital Signs Temperature 97.8 F 06/15/24 13:16 Pulse Rate 103 H 06/15/24 13:16 Respiratory Rate 18 06/15/24 13:16 Blood Pressure 153/82 H 06/15/24 13:16 Pulse Oximetry 100 06/15/24 13:16 Oxygen Delivery Room Air 06/15/24 13:16 Temperature 97.8 F 06/15/24 13:16 Pulse Rate 111 H 06/15/24 16:55 Respiratory Rate 21 H 06/15/24 16:55 Blood Pressure 162/94 H 06/15/24 16:55 Pulse Oximetry 95 06/15/24 16:55 Oxygen Delivery Room Air 06/15/24 13:23 Medical Decision Making MDM Narrative Medical decision making narrative: 68-year-old female presented to the emergency department for evaluation for allergic reaction secondary to her Macrobid. Patient took Macrobid for the 1st time today and within a few hours patient had an allergic reaction. Patient was treated with IM epinephrine, 145 mg IV Solu-Medrol, IV flutter day and IV Benadryl. On re-evaluation patient does feel significantly improved. Patient was observed in the emergency department for 3 hours. Patient was significantly improved and denies any chest pain shortness of breath. Patient was also treated with p.o. prednisone. Patient will be provided prednisone for the next 5 days in addition to EpiPen. Patient family were updated on the results of the workup and on reasons to return to the emergency department. And on the importance of close follow-up with her primary care physician. Differential Diagnosis Differential Diagnosis: Allergic reaction, adverse reaction Vital Signs Vital Signs: Vital Signs Temperature 97.8 F 06/15/24 13:16 Pulse Rate 103 H 06/15/24 13:16 Respiratory Rate 18 06/15/24 13:16 Blood Pressure 153/82 H 06/15/24 13:16 Pulse Oximetry 100 06/15/24 13:16 Oxygen Delivery Room Air 06/15/24 13:16 Temperature 97.8 F 06/15/24 13:16 Pulse Rate 111 H 06/15/24 16:55 Respiratory Rate 21 H 06/15/24 16:55 Blood Pressure 162/94 H 06/15/24 16:55 Pulse Oximetry 95 06/15/24 16:55 Oxygen Delivery Room Air 06/15/24 13:23 Lab Data Lab results reviewed: Yes I reviewed the patient's lab results. Critical Care Time Critical Care Time Critical Care Time: Yes Total Critical Care Time: 35 Discharge Plan Discharge Clinical Impression: Allergic reaction Patient Disposition: Home, Self-Care Condition: Stable Instructions: Antibiotic Form, Anaphylaxis (ED), Allergies (ED) Additional Instructions: Stop taking Macrobid. Prednisone as directed for the next 5 days. Benadryl as needed for intermittent itching. Your also being prescribed EpiPen meds. If you need to use these than the you will also need to present to the emergency department for evaluation. Have close follow-up with her primary care physician. Patient Language: Scottish Prescriptions: New epinephrine [EpiPen] 0.3 mg/0.3 mL auto-injector 0.3 mg IM ONCE Qty: 1 0RF Rx Instructions: as a single dose; may repeat once prednisone 50 mg tablet 50 mg PO DAILY 5 Days Qty: 5 0RF No Action alendronate 70 mg tablet 70 mg PO WEEKLY amlodipine 5 mg tablet 5 mg PO DAILY cetirizine [Allergy Relief (cetirizine)] 10 mg tablet 10 mg PO DAILY PRN famotidine 20 mg tablet 20 mg PO DAILY tramadol 50 mg tablet 50 mg PO Q6H PRN triamterene-hydrochlorothiazid 37.5-25 mg capsule 1 cap PO DAILY allopurinol 300 mg tablet 300 mg PO DAILY nystatin-triamcinolone 100,000-0.1 unit/g-% cream 1 applic topical BID Qty: 30 4RF Rx Instructions: apply a thin layer to affected area twice daily for 5 days. (vaginal labia) aspirin [Aspir-81] 81 mg Tablet,Delayed Release (Dr/Ec) 81 mg PO DAILY losartan 100 mg tablet 100 mg PO QAM cyclobenzaprine 10 mg tablet 10 mg PO TID PRN (Reason: muscle spasm) Qty: 12 0RF naproxen 375 mg tablet 375 mg PO BID Qty: 14 0RF Follow-up/Referrals: Yunier,MD Michael [Primary Care Provider] -
[2024-06-15] MEDS: EPINEPHrine HCL INJ 1 MG/ML AMPUL 0.3 MG IM (13:01)
[2024-06-15] MEDS: FAMOTIDINE 20 MG/2 ML VIAL IV PUSH (13:01)
[2024-06-15] MEDS: methylPREDNISolone SOD SUCC 125 MG VIAL IV PUSH (13:01)
[2024-06-15] MEDS: diphenhydrAMINE HCl INJ 50 MG/ML VIAL IV PUSH (13:02)
[2024-06-15 13:16] VITALS: BP 153/82; PULSE 103; RESP 18; TEMP 36.6; O2SAT 100
[2024-06-15] MEDS: ONDANSETRON INJ 4 MG/2 ML VIAL (13:16)
[2024-06-15] MEDS: SODIUM CHLORIDE 0.9% IV 1,000 ML 999 ML IV CONT (13:24)
[2024-06-15 13:38] VITALS: BP 154/88; PULSE 96; RESP 20; O2SAT 99
[2024-06-15 14:30] VITALS: BP 146/64; PULSE 99; RESP 14; O2SAT 97
[2024-06-15] MEDS: diphenhydrAMINE HCl INJ 50 MG/ML VIAL 25 MG IV PUSH (14:57)
[2024-06-15 14:58] VITALS: BP 146/69; PULSE 102; RESP 17; O2SAT 96
[2024-06-15] MEDS: predniSONE 20 MG TABLET 60 MG PO (16:35)
[2024-06-15 16:36] VITALS: BP 160/93; PULSE 115; RESP 20; O2SAT 94
[2024-06-15 16:55] VITALS: BP 162/94; PULSE 111; RESP 21; O2SAT 95
--- OUTSIDE RECORDS SUMMARY | 2024-06-17 00:31 | XMS_ITS | Continuity of Care Document ---
Author Organization [facility], [facility] Address [address] [place] [id number] Care Team Providers Care Counter Caser Name Role Phone MICHAEL FAYE Primary Care Provider Assessment No assessment recorded. Plan of Treatment Reminders Order Date Submit Date Provider Last Modified By Organization Details Last Modified Time Details Appointments Follow Up 15 2024 09:00A Odin Faye MD Not available Not available Not available Lab urinalysi s, dipstick 2024 025 [facility], [address], [place], [address], 06/15/2024 10:58:49 culture, urine + sensitivi ty 2024 025 [facility] ([facility]), [address] [place], [address], 06/15/2024 15:25:27 Referral None recorded. Procedures None recorded. Surgeries None recorded. Imaging None recorded. Medication Orders Macrobid 100 mg capsule 2024 025 [id number], [address], [place], [address], 06/15/2024 10:47:06 Patient TargetsNo targets recorded. Patient InstructionsNo instructions recorded. Reason for Referral None Reported. Results Created Date Observation Date Name Description Value Unit Range Abnormal Flag Note LastModifiedBy Organization Detail LastModifiedTime 06/15/1906/15/2024 urina lysis , dipst ick Leukocytes (reference range: negative afshan/??l) Modera te Not Available [address], [address], 06/15/2024 10:46:33 06/15/19 25 06/15/2024 urina lysis , dipst ick Nitrite (reference rage: negative mg/dl) negati ve Not Available [address], [address], 06/15/2024 10:46:33 06/15/19 25 06/15/2024 urina lysis , dipst ick Urobilinogen (reference range: 0.2-1 mg/dl) 0.2 Not Available [address], [address], 06/15/2024 10:46:33 06/15/19 25 06/15/2024 urina lysis , dipst ick Protein (reference range: negative mg/dl) Trace Not Available [address], [address], 06/15/2024 10:46:33 06/15/19 25 06/15/2024 urina lysis , dipst ick pH (reference range: 5-7) 7.0 Not Available [address], [address], 06/15/2024 10:46:33 06/15/19 25 06/15/2024 urina lysis , dipst ick Blood (reference range: negative Cornelio/??l) Negati ve Not Available [address], [address], 06/15/2024 10:46:33 06/15/19 25 06/15/2024 urina lysis , dipst ick Specific Odd (reference range: 1.005-1.030) 1.010 Not Available [address], [address], 06/15/2024 10:46:33 06/15/19 25 06/15/2024 urina lysis , dipst ick Ketone (reference range: negative mg/dl) Negati ve Not Available [address], [address], 06/15/2024 10:46:33 06/15/19 25 06/15/2024 urina lysis , dipst ick Bilirubin (reference range: negative mg/dl) Negati ve Not Available [address], [address], 06/15/2024 10:46:33 06/15/19 25 06/15/2024 urina lysis , dipst ick Glucose (reference range: negative mg/dl) Negati ve Not Available [address], [address], 06/15/2024 10:46:33 06/15/19 25 06/15/2024 urina lysis , dipst ick Appearance Clear Not Available [address], [address], 06/15/2024 10:46:33 06/15/19 25 06/15/2024 urina lysis , dipst ick Color Yellow Not Available [address], [address], 06/15/2024 10:46:33 06/15/19 25 06/15/2024 XR, chest , 2 view No observ ation record ed. [email or web address] [address], [place], [address], 06/15/2024 16:11:08 Result Notes None recorded. Problems Name Problem SNOMED Code Status Onset Date Resolution Date Notes Provider Name and Address Organization Details Recorded Time Acute sinusitis 41620562 Active 2020 Not Available [employer] 3 07:31:19 Anthony hematuria 625599240 Completed Not Available [employer] 3 07:31:20 Sciatica 03841897 Active 2021 Not Available [employer] 3 07:31:20 Mixed anxiety and depressiv e disorder 728063576 Active 2021 Not Available [employer] 3 07:31:20 Gastroeso phageal reflux disease 053921952 Active 2019 Not Available [employer] 3 07:31:20 Osteoarth ritis of knee 072283550 Active 2016 Not Available [employer] 3 07:31:20 Lumbar spondylos is 468442009 Active 2021 Not Available [employer] 3 07:31:20 Headache 52272080 Completed Daly Pinto NP [address] [place] [address], [address] , [facility] 3 12:00:58 History of thyroid disorder 200294110 Active 2020 Not Available [employer] 3 07:31:20 Low back pain 576251761 Active 2021 Not Available [employer] 3 07:31:20 Retinal disorder 75048075 Active Not Available [employer] 3 07:31:20 Hypertrig lyceridem ia 520849572 Active 2020 Not Available [facility] 3 07:31:21 Depressiv e disorder 07656864 Active Not Available [facility] 3 07:31:21 Seasonal allergic rhinitis 523164777 Active 2019 Not Available [facility] 3 07:31:21 Sinusitis 53163552 Active 2017 Not Available [facility] 3 07:31:21 Hypertens shana disorder 83786609 Active 2019 Not Available [facility] 3 07:31:21 Hematoma 410895107 Completed Not Available [facility] 3 07:31:21 Memory impairmen t 689387407 Active 2020 Not Available [facility] 3 07:31:21 Furuncle 459290171 Completed Michael Faye MD [address], [address], [place], [address] , [facility] [employer] 4 10:18:43 Environme ntal allergy 501210345 Active 2016 Not Available [facility] 3 07:31:21 Herniatio n of lumbar intervert ebral disc with sciatica 92395221486 4105 Active 2021 Not Available [employer] 3 07:31:22 Foot pain 83666134 Completed Not Available [employer] 3 07:31:22 Bilateral tinnitus 61853647860 02 Active 2019 Not Available [facility] 3 07:31:22 Anxiety 77871285 Active Not Available [facility] 3 07:31:22 Upper respirato ry infection 74660592 Completed Not Available [facility] 3 07:31:22 Hyperlipi demia 72649605 Active 2016 Not Available [facility] 3 07:31:22 Migraine without aura 57969671 Active 2016 Not Available [facility] 3 07:31:22 Osteoporo sis 77415058 Active 2021 Not Available [facility] 3 07:31:23 Urinary tract infectiou s disease 73813131 Completed Michael Faye MD [address], [address], [place], [address] , [employer] [facility] [employer] 4 16:13:03 Acid reflux 976607223 Active 2018 Not Available [facility] 3 07:31:23 Liver enzymes level above reference range 684000751 Active 2020 Not Available [facility] 3 07:31:23 Varicose veins of lower extremity 69720463 Active 2016 Not Available [facility] 3 07:31:23 Sleep apnea 62354321 Active Not Available [facility] 3 07:31:24 Urgent desire to urinate 32189197 Completed Not Available [facility] 3 07:31:24 Postmenop ausal state 78176969 Active 2021 Not Available [facility] 3 07:31:24 Hyperglyc emia 44563964 Active 2016 Not Available [facility] 3 07:31:24 Gout 10276952 Active 2021 Not Available [facility] 3 07:31:24 Skin lesion 06219211 Completed Not Available [facility] 3 07:31:25 Kidney stone 27488293 Completed Not Available [facility] 3 07:31:25 Obese 778069698 Active 2022 Daly Pinto NP [address], [address], [place], [address] , [employer] 3 11:56:43 Headache 94872020 Active 2022 Daly Pinto NP [address], [address], [place], [address] , [employer] 3 12:00:58 Lumbar radiculop athy 977730741 Active 2022 Michael Faye MD [address], [address], [place], [address] , [place] [employer] [facility] 3 17:01:57 Obesity 485068306 Active 2022 Michael Faye MD [address], [address], [place], [address] , [employer] [facility] 3 17:02:46 Lipoma of lower leg 515097714 Active 2022 Michael Faye MD [address], [address], [place], [address] , [place] [facility] 3 17:43:42 Idiopathi c hypercalc emia 716629050 Active 2022 Michael Faye MD [address], [address], [place], [address] , [place] [facility] 3 14:31:47 Hyperpara thyroidis m 70844339 Active 2022 Daly Pinto NP [address], [address], [place], [address] , [place] [facility] 3 17:11:28 Blood in urine 93638335 Active 2022 Daly Pinto NP [address], [address], [place], [address] , [place] [facility] 3 10:44:02 Abnormal uterine bleeding 85986374449 100 Active 2022 Daly Pinto NP [address], [address], [place], [address] , [place] [facility] 3 10:44:49 Acute urinary tract infection 153996929 Active 2022 Daly Pinto NP [address], [address], [place], [address] , [place] [facility] 3 08:51:54 Dysuria 61818813 Active 2022 Daly Pinto NP [address], [address], [place], [address] , [place] [facility] 3 10:52:22 Urinary tract infectiou s disease 22214410 Active 2023 Michael Faye MD [address], [address], [place], [address] , [place] [facility] 4 16:13:03 Bilateral earache 372317787 Active 2023 Michael Faye MD [address], [address], [place], [address] , [employer] 4 16:33:22 Candidal vulvovagi nitis 16393400 Active 2023 Michael Faye MD [address], [address], [place], [address] , [employer] 4 16:37:42 Gouty arthropat hy 359050574 Active 2023 Michael Faye MD [address], [address], [place], [address] , [employer] 4 09:56:46 Polyarthr opathy 62500304 Active 2023 Michael Faye MD [address], [address], [place], [address] , [employer] 4 09:58:59 Obstructi ve sleep apnea syndrome 33201992 Active 2023 Michael Faye MD [address], [place] [address], [place], [address] , [employer] 4 10:07:57 Pain of right knee joint 37003070945 4100 Active 2023 LILLY Beltran [address] [facility] [address], [place], [address] , [employer] 4 14:54:22 Hypercalc emia 53405580 Active 2023 LILLY Beltran [address] [facility], [place], [address] , [employer] 4 14:58:37 Problem Notes None recorded. Procedures Surgical History Date Name Laterality Status Provider Name and Address Organization Details Recorded Time 09/29/19 Medicare Wellness CPT Code, subsequent completed Reji Ashton [employer] 09/29/2023 14:15:26 06/18/19 Transitional_Care_ Management completed Reji Ashton [place] [facility] [employer] 06/18/2023 16:22:09 06/23/19 23 Most Recent Mammogram completed Daly Monte RN [facility] [employer] [facility] 10/09/2022 09:25:48 04/03/20 22 Most Recent Bone Density completed Not Available [facility] 07/23/2022 07:26:53 05/25/19 18 Knee Replacement completed Not Available [facility] 07/23/2022 07:26:55 05/25/19 02 repair of ovary completed Not Available [facility] 07/23/2022 07:26:55 05/25/18 92 Cholecystectomy completed Not Available [facility] 07/23/2022 07:26:55 Imaging Results None recorded. Procedure Notes None recorded. Medical Equipment None Reported. Allergies Allergen ID Allergen Name Allergen Category Reaction Reaction Severity Criticality Documentation Date Start Date Code Code System Note Provider Name and Address Organization Details Recorded Time 01300 Substance with sulfonami de structure and antibacte rial mechanism of action (substanc e) medicatio n nausea Not available Not available 07/23/2022 92883 8003 SNOMED Not Available [facility] 3 07:36:13 12712 Zithromax medicatio n other Not available Not available 03/31/2024 96662 4 RxNorm cause s pt to be super jitte ry [facility] [employer] [facility] 4 09:43:14 91826 Macrobid medicatio n anaphylax is severe high 06/16/20242024 56837 1 RxNorm state s her throa t close d up with in the hour of takin g it, had to go to [facility] 5 09:32:31 Medications Name Sig Start Date Stop Date Status Note LastModified by Organization Details LastModified Time losartan 50 mg tablet TAKE ONE TABLET BY MOUTH ONCE DAILY 09/22 completed Not Available Not Available Not Available celecoxib 200 mg capsule TAKE 1 CAPSULE BY MOUTH TWICE A DAY 11/23 completed not taking right now - PRN Not Available Not Available Not Available cyclobenz aprine 10 mg tablet TAKE 1 TABLET BY MOUTH THREE TIMES DAILY NEEDED FOR MUSCLE SPASM active Not Available Not Available No t Available amoxicill in 500 mg capsule 1 tab po bid for 10 days. active Not Available Not Available No t Available doxycycli ne hyclate 100 mg capsule TAKE 1 CAPSULE BY MOUTH TWICE DAILY 06/18 completed Not Available Not Available Not Available naproxen 375 mg tablet TAKE 1 TABLET BY MOUTH TWICE DAILY 12/23 completed Not Available Not Available Not Available cetirizin e 10 mg tablet TAKE 1 TABLET BY MOUTH EVERY DAY 01/21 completed Not Available Not Available Not Available azithromy poli 250 mg tablet TAKE 2 TABLETS BY MOUTH ON DAY 1, AND THEN TAKE 1 TABLET BY MOUTH ONCE A DAY ON DAY 2 THROUGH DAY 5 03/31 completed Not Available Not Available Not Available ibuprofen 800 mg tablet TAKE 1 TABLET EVERY 8 HOURS NEEDED FOR PAIN active Not Available Not Available No t Available fluconazo le 150 mg tablet TAKE ONE TABLET BY MOUTH A ONE-TIME DOSE. CAN REPEAT IN 1 WEEK. 09/01 completed Not Available Not Available Not Available metoprolo l succinate ER 50 mg tablet,ex tended release 24 hr TAKE 1 TABLET BY MOUTH EVERY DAY 06/16 completed Not Available Not Available Not Available atenolol 100 mg tablet 1/2 TABLET DAILY 03/26 completed Not Available Not Available Not Available hydrocodo ne 5 mg-acetam inophen 325 mg tablet 07/16 completed Not Available Not Available Not Available meloxicam 15 mg tablet Take 1 tablet by mouth once daily active Not Available Not Available No t Available sumatript an 25 mg tablet Take 1 tablet as needed by oral route as directed for 30 days. active Not Available Not Available No t Available alendrona te 70 mg tablet TAKE 1 TABLET BY MOUTH ONCE A WEEK active Not Available Not Available No t Available doxycycli ne hyclate 50 mg capsule 1 cap po bid 01/30 completed Not Available Not Available Not Available phentermi ne 15 mg capsule TAKE 1 CAPSULE BY MOUTH ONCE DAILY 01/21 completed Not Available Not Available Not Available penicilli n V potassium 500 mg tablet active Not Available Not Available Not Available amoxicill in 250 mg-potass ium clavulana te 125 mg tablet TAKE 1 TABLET 3 TIMES A DAY UNTIL FINISHED active Not Available Not Available No t Available phentermi ne 37.5 mg tablet TAKE 1 TABLET BY MOUTH ONCE DAILY 01/21 completed Not Available Not Available Not Available ciproflox acin 250 mg tablet TAKE 1 TABLET BY MOUTH TWICE DAILY FOR 5 DAYS 01/21 completed Not Available Not Available Not Available amlodipin e 5 mg tablet TAKE 1 TABLET BY MOUTH DAILY 2023 active Not Available Not Available Not Avai lable allopurin ol 100 mg tablet TAKE 1 TABLET BY MOUTH TWICE DAILY DIRECTED 12/23 completed Not Available Not Available Not Available ciproflox acin 500 mg tablet Take 1 tablet every 12 hours by oral route for 3 days. 04/29 completed Not Available Not Available Not Available omeprazol e 40 mg capsule,d elayed release 1 cap po daily 01/30 completed Not Available Not Available Not Available aspirin 81 mg tablet,de layed release Take 2 tablets every day by oral route as directed . 2013 active Not Available Not Available Not Avai lable tramadol 50 mg tablet TAKE 1 TABLET BY MOUTH TWICE DAILY NEEDED FOR ARTHRITI S active Not Available Not Available No t Available triamtere ne 37.5 mg-hydroc hlorothia zide 25 mg capsule TAKE 1 CAPSULE BY MOUTH DAILY QAM 2023 active Not Available Not Available Not Avai lable amoxicill in 500 mg tablet Take 1 tablet twice a day by oral route for 10 days. 04/01 completed Not Available Not Available Not Available Macrobid 100 mg capsule Take 1 capsule every 12 hours by oral route for 10 days. 2024 active Not Available Not Available Not Avai lable meloxicam 7.5 mg tablet TAKE 1 TABLET BY MOUTH EVERY 12 HOURS NEEDED active Not Available Not Available No t Available amoxicill in 875 mg tablet Take 1 tablet every 12 hours by oral route with meals for 10 days. active Not Available Not Available No t Available alprazola m 0.25 mg tablet TAKE 1 TABLET 3 TIMES A DAY NEEDED active Not Available Not Available No t Available famotidin e 20 mg tablet TAKE 1 TABLET BY MOUTH ONCE DAILY active Not Available Not Available No t Available oxycodone -acetamin ophen 10 mg-325 mg tablet TAKE 1/2-1 TABLETS BY MOUTH EVERY 6 HOURS NEEDED FOR PAIN 03/30 completed Not Available Not Available Not Available phenazopy ridine 100 mg tablet TK 1 T PO TID FOR 2 DAYS active Not Available Not Available No t Available cephalexi n 500 mg capsule TAKE 1 CAPSULE BY MOUTH EVERY 12 HOURS FOR 7 DAYS 09/01 completed Not Available Not Available Not Available paroxetin e 20 mg tablet Take 1 tablet every day by oral route for 30 days. active Not Available Not Available No t Available simvastat in 20 mg tablet TAKE 1 TABLET EVERY EVENING 01/30 completed Not Available Not Available Not Available oseltamiv ir 75 mg capsule Take 1 capsule every day by oral route for 7 days. 06/16 completed Not Available Not Available Not Available nitrofura ntoin macrocrys young 100 mg capsule Take 1 capsule every 6 hours by oral route with meals for 7 days. active Not Available Not Available No t Available ranitidin e 150 mg tablet TAKE 1 TABLET BY MOUTH TWICE A DAY 09/29 completed Not Available Not Available Not Available olopatadi ne 0.1 % eye drops INSTILL 1 DROP INTO BOTH EYES TWICE A DAY DURING ALLERGY SEASON 01/30 completed Not Available Not Available Not Available lisinopri l 10 mg tablet Take 1 tablet every day by oral route. 11/07 completed Internal note: COUGH SWITCHED TO LOSARTAN External note: medicati on is making pt. cough Not Available Not Available Not Available polymyxin B sulfate 10,000 unit-trim ethoprim 1 mg/mL eye drops INSTILL 1 DROP INTO AFFECTED EYE(S) BY OPHTHALM IC ROUTE EVERY 6 HOURS active Not Available Not Available No t Available metronida zole 0.75 % topical cream APPLY A THIN LAYER TO THE AFFECTED AREA 2 TIMES PER DAY IN THE MORNING AND EVENING active Not Available Not Available No t Available nystatin- triamcino lone 100,000 unit/g-0. 1 % topical cream APPLY CREAM EXTERNAL LY TWICE DAILY IN A THIN LAYER TO THE VAGINAL LABIA FOR 5 DAYS active Not Available Not Available No t Available gabapenti n 300 mg capsule TAKE 1 CAPSULE BY MOUTH ONCE DAILY AT NIGHT 06/18 completed Not Available Not Available Not Available isomethep tene-dich loralphen -acetamin ophen 65 mg-100 mg-325 mg capsule 09/11 completed Not Available Not Available Not Available diclofena c sodium 75 mg tablet,de layed release TAKE 1 TABLET TWICE A DAY BY ORAL ROUTE NEEDED. active Not Available Not Available No t Available hydroxyzi ne HCl 25 mg tablet TAKE 1 TABLET BY MOUTH THREE TIMES DAILY NEEDED 01/21 completed Not Available Not Available Not Available allopurin ol 300 mg tablet Take 1 tablet every day by oral route as directed for 90 days. 2023 active Not Available Not Available Not Avai labyovana mupirocin 2 % topical ointment APPLY SMALL AMOUNT IN EACH NOSTRIL TWICE DAILY FOR 5 DAYS 09/11 completed Not Available Not Available Not Available Wellbutri n 100 mg tablet Take 1 tablet twice a day by oral route with meals for 15 days. 11/01 completed Not Available Not Available Not Available oxycodone -acetamin ophen 7.5 mg-325 mg tablet 03/30 completed Not Available Not Available Not Available methylpre dnisolone 4 mg tablets in a dose pack TAKE BY MOUTH DIRECTED ON INSIDE OF PACKAGE 09/01 completed Not Available Not Available Not Available losartan 100 mg tablet TAKE 1 TABLET BY MOUTH ONCE DAILY active Not Available Not Available No t Available fluticaso ne propionat e 50 mcg/actua tion nasal spray,suzette pension 2sprays each nostril propiona te 50 mcg/actu ation nasal spray, suspensi on 01/21 completed Not Available Not Available Not Available doxycycli ne hyclate 100 mg tablet Take 1 tablet twice a day by oral route. active Not Available Not Available No t Available atenolol 50 mg tablet TAKE ONE TABLET BY MOUTH ONCE DAILY 12/17 completed Not Available Not Available Not Available naproxen 500 mg tablet 1 tab po bid prn 03/30 completed Not Available Not Available Not Available Bactroban Nasal 2 % ointment 1/2 tube each nostril bid for 5 days. 09/11 completed Possible MRSA in Not Available Not Available Not Available amoxicill in 875 mg-potass ium clavulana te 125 mg tablet TAKE 1 TABLET BY MOUTH EVERY 12 HOURS FOR 7 DAYS 09/28 completed Not Available Not Available Not Available amoxicill in 500 mg-potass ium clavulana te 125 mg tablet TAKE 1 TABLET BY MOUTH EVERY 12 HOURS FOR 5 DAYS active Not Available Not Available No t Available naproxen 375 mg tablet,de layed release TAKE 1 TABLET BY MOUTH TWICE DAILY NEEDED 12/23 completed Not Available Not Available Not Available neomycin- polymyxin -hydrocor t 3.5 mg-10,000 unit/mL-1 % ear drops,suzette p INSTILL 3 4 DROPS INTO AFFECTED EAR(S) BY OTIC ROUTE 3 TIMES PER DAY active Not Available Not Available No t Available Paxil CR 12.5 mg tablet,ex tended release TAKE ONE TABLET BY MOUTH ONCE DAILY 09/11 completed Not Available Not Available Not Available escitalop marty 10 mg tablet TAKE 1 TABLET BY MOUTH ONCE DAILY active Not Available Not Available No t Available rosuvasta tin 5 mg tablet Take 1 tablet every day by oral route at bedtime for 90 days. 2023 active Not Available Not Available Not Avai lable Midran tablet 2 AT ONSET OF HEADACHE AND 1 EVERY HOURS UNTIL HEADACHE RELEIVED FOR A MAX OF 5 PER 24 HOURS active PRN Not Available Not Available No t Available hydrocodo ne 5 mg-acetam inophen 300 mg tablet TAKE 1 TO 2 TABLETS EVERY 6 HOURS NEEDED FOR PAIN active Not Available Not Available No t Available Zostavax (PF) 19,400 unit/0.65 mL subcutane ous suspensio n active Not Available Not Available Not Available calcium 600 mg (as carbonate )-vitamin D3 10 mcg (400 unit) tablet TAKE 1 TABLET BY MOUTH TWICE DAILY DIRECTED 09/28 completed Not Available Not Available Not Available Afluria 4328-1487 (PF) 45 mcg (15 mcg x 3)/0.5 mL intramusc ular syringe USE DIRECTED active Not Available Not Available No t Available Afluria 6097-3966 (PF) 45 mcg (15 mcg x 3)/0.5 mL IM syringe TO BE ADMINIST ERED BY PHARMACI ST FOR IMMUNIZA TION active Not Available Not Available No t Available Flucelvax Quad (PF) 60 mcg (15 mcg x 4)/0.5 mL IM syringe active Not Available Not Available Not Available Vitals Date Recorded Body height Body mass index (BMI) Body weight Body temperature Heart rate Respiratory rate Oxygen saturation Oxygen saturation in Arterial blood by Pulse oximetry Systolic blood pressure Diastolic blood pressure Provider Name and Address Organization Details Last Updated DateTime 5 160.02 cm 41.5 kg/m2 839274. 61 g 97.3 [degF] 74 /min 20 /min 97 % 97 % 160 mm[Hg] 90 mm[Hg] Daly Monte RN [facility] [employer] [facility] 10:40:55 Social History Question Answer Notes LastModified by Organization Details LastModified Time Tobacco Smoking Status Never Smoker Elida scanlon [facility] [employer] [facility] 06/18/2023 16:10:12 Do You Have An Advance Directive? Yes [id number] Information not available 07/23/2022 What Is Your Level Of Alcohol Consumption? None [id number] Information not available 07/23/2022 Are You Blind Or Do You Have Difficulty Seeing? No Information not available 06/18/2023 Is Blood Transfusion Acceptable In An Emergency? Yes Information not available 06/18/2023 What Is Your Level Of Caffeine Consumption? Moderate [id number] Information not available 07/23/2022 How Much Tobacco Do You Chew? None [id number] Information not available 07/23/2022 What Is Your Code Status? Full Code Information not available 06/18/2023 In The 14 Days Before Symptom Onset, Have You Had Close Contact With A Laboratory-confi rmed COVID-19 While That Case Was Ill? No Information not available 06/18/2023 In The 14 Days Before Symptom Onset, Have You Had Close Contact With A Person Who Is Under Investigation For COVID-19 While That Person Was Ill? No Information not available 06/18/2023 Are You Currently Employed? Yes Information not available 06/18/2023 Are You Deaf Or Do You Have Serious Difficulty Hearing? Yes Right Ear Has Issues Information not available 06/18/2023 What Type Of Diet Are You Following? GLUTENFREE [email or web address] Information not available 12/30/2023 Which Illicit Or Recreational Drugs Have You Used? None Information not available 06/18/2023 Do You Or Have You Ever Used E-cigarettes Or Vape? Never Used Electronic Cigarettes Information not available 06/18/2023 What Is The Highest Grade Or Level Of School You Have Completed Or The Highest Degree You Have Received? 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 1 Information not available 06/18/2023 On Those Days That You Engage In Moderate To Strenuous Exercise, How Many Minutes, On Average, Do You Exercise? 50 Information not available 06/18/2023 Have There Been Any Changes To Your Family Or Social Situation? No Information not available 06/18/2023 Do You Use Insect Repellent Routinely? Yes Information not available 06/18/2023 Where Do You Live? [facility] Information not available 06/18/2023 Advance Directive- Providers Has Reviewed Directive And Consents To Follow Them (insert Provider Name With Any Objectives In Notes Field) No Information not available 11/09/2023 Presence Of Domestic Violence No Information not available 11/09/2023 Guns Present In The Home? Yes Information not available 11/09/2023 Are You Able To Care For Yourself? Yes Information not available 11/09/2023 Are You Blind Or Do Yo Have Difficulty Seeing? No Information not available 11/09/2023 Are You Deaf Or Do You Have Serious Difficulty Hearing? Yes Information not available 11/09/2023 General Stress Level? Moderate Information not available 11/09/2023 Live Alone Of With Others? With Others Information not available 11/09/2023 Do You Have A Medical Power Of Backing In Machine Tender? No Information not available 06/18/2023 What Was The Date Of Your Most Recent Tobacco Screening? 09/29/2023 [email or web address] Information not available 09/29/2023 How Many Children Do You Have? 2 Information not available 06/18/2023 Do You Have Any Pets? Yes Information not available 06/18/2023 What Is Your Relationship Status? Information not available 09/09/2022 Do You Use Your Seat Belt Or Car Seat Routinely? Yes Information not available 06/18/2023 Do You Have Smoke And Carbon Monoxide Detectors In Your Home? Yes Information not available 06/18/2023 Are There Any Smokers In Your House? No Information not available 06/18/2023 Do You Participate In Social Media? Yes Information not available 06/18/2023 What Types Of Sporting Activities Do You Participate In? Water Aerobics Information not available 06/18/2023 Do You Feel Stressed (tense, Restless, Nervous, Or Anxious, Or Unable To Sleep At Night)? [id number] Information not available 11/09/2023 Do You Use Sunscreen Routinely? Yes Information not available 06/18/2023 Have You Recently Traveled Abroad? No Information not available 06/18/2023 Do You Have Any Dietary Restrictions? Yes Information not available 06/18/2023 Sex: Unknown Functional Status Question Answer Note LastModified by Organizat ion Details LastModified Time Do you have difficulty walking or climbing stairs? No Information not available 06/18/2023 Do you have transportation difficulties? No Information not available 06/18/2023 Are you able to walk? YESWOREST Information not available 06/18/2023 Do you have difficulty doing errands alone? No Information not available 06/18/2023 Are you able to care for yourself? Yes Information not available 06/18/2023 Do you have difficulty dressing or bathing? No Information not available 06/18/2023 What is your exercise level? Moderate [email or web address] Information not available 12/30/2023 Mental Status Question Answer Note LastModified by Organization D etails LastModified Time Do you have difficulty concentrating, remembering or making decisions? No Information no t available 06/18/2023 Family History Relationship Description Onset Age of this Age Resolved Age Notes LastModified by Organization Details LastModified Time Father No current problems or disability [id number] Not available 07/23/2022 07:26:58 Mother No current problems or disability [id number] Not available 07/23/2022 07:26:58 Medical History Condition Response HEADACHES/MIGRAINES Y OBESITY Y ANXIETY DISORDER Y GERD/NAUSEA Y BACK INJECTIONS Y ALLERGIES/HAYFEVER Y BACK / NECK PROBLEMS Y HYPERTENSION Y HIGH CHOLESTEROL / HYPERLIPIDEMIA Y Gynecological History Statement/Question Response If Post Menopausal, Age at Menopause 49 Date of Last Mammogram 06/23/2022 Date of Last Colonoscopy Most Recent Mammogram 06/23/2022 Most Recent Bone Density 04/03/2022 Obstetrics History GPAL:G 0 P 0 0 0 0 Immunizations Vaccine Type Date Status Note Provider Nam e and Address Organization Details Recorded Time Influenza, split virus, quadrivalent, preservative 8 completed Not Available [facility] 07/23/2022 07:36:04 Influenza, split virus, trivalent, preservative 5 completed Not Available [facility] 07/23/2022 07:36:04 zoster live 5 completed Not Available [facility] 07/23/2022 07:36:04 Influenza, split virus, trivalent, PF 4 completed Not Available [facility] 07/23/2022 07:36:04 Pneumococcal conjugate PCV 13 0 completed Not Available [facility] 07/23/2022 07:36:05 Influenza, high-dose, quadrivalent, PF 0 completed Not Available [facility] 07/23/2022 07:36:05 Tdap 8 completed Not Available [facility] 07/23/2022 07:36:05 Influenza, split virus, quadrivalent, PF 6 completed Not Available [facility] 07/23/2022 07:36:05 Past Encounters Encounter ID Performer Location Encounter Start Date Encounter Closed Date Diagnosis/Indication Diagnosis SNOMED-CT Code Diagnosis ICD10 Code Diagnosis Note [id number] LILLY Beltran [facility] [address] [place] [address] [phone] [id number] 06/15/2024 10:16:28 06/15/2024 10:56:03 Acute urinary tract infection 600845483 N39.0 hx of sepsis related to UTI Health Concerns Section Related Observation LastModified by Organization Detai ls LastModified Time None Recorded Concern Status LastModified by Organization Details LastModified Time None Recorded Payers Encounter Date Sequence Insurance Name Policy Number Policy Dun[place] Covered Member ID [place] Member ID Guarantor Name 06/15/2024 1 [facility] (MEDICARE REPLACEMENT/A DVANTAGE - HMO) [id number] Rody Monson [id number] Rody Monson Notes Date Note Type Note Provider Name and Address Organization Details Recorded Time 06/15/2024 text/html Rody Monson is a 68 year old female patient here today for urinary concerns She states she gets UTIs frequently She noticed blood in her urine last night, pelvic pain, pressure, urgency Nicole Mckeon, FAMILY PRESERVATION CASEWORKER [address] [facility], [facility] [address], [place], [address], [place] [facility] [employer] 06/15/2024 10:51:32 OBGyn Episode No OBEpisode recorded.
--- OUTSIDE RECORDS SUMMARY | 2024-06-17 00:31 | XMS_ITS | Data Portability ---
Author Organization [place] - [facility] Consult, Main Office Address [address] [place] [address] Care Team Providers Care Wedding Consultant Name Role Phone MICHAEL FAYE Primary Care Provider [phone] Assessment Encounter Date Assessment Date Assessment LastModified by Organization Details LastModified Time 12/30/2023 12/30/2023 68 yo F with - RT KNEE OA, severe - HYPERCALEMIA, new - HLD - HTG - HTN - POLYARTHROPATHY - OA - GOUT - OSTEOPOROSIS - DEPRESSION - AKSHAT (On Cpap) - OBESITY III X-ray knee: 11/09/23. CXR: 06/11/23. Annual labs: 09/02/23. D/w pt about her findings, recent labs & imagines and further plan of care. Pt declined for any repeat labs after 3-4 months. Will refer pt to Endo. All meds verified with pt. Meds as directed. OTC knee sleeve as directed. Diet and exercise explained in detail. BP diary education given. F/u with Endo as per schedule. Cont f/u with Ophtho as per schedule. Offered to refer to PT; but pt declined. Offered to refer to Rheumat; but pt declined. Offered to refer to Ortho; but pt declined. HM: WWE - 11/15, normal as per pt. Cont f/u with Gyne as per schedule. Mammo - Ordered. DEXA - 04/15, osteoporosis ++. Colonoscopy - Long time ago. Pt declined. Cologuard 09/11/23 - neg. Flu - Pt declined. Tdap - 10/09. Pneumo - 02/11. Shingrix - Pt got 2 doses. F/u in 3 months. Annual labs in 09/16. [email or web address] Not available 12/30/2023 10:17:46 03/31/2024 03/31/2024 68 yo F with - HYPERCALEMIA - RT KNEE OA, severe - HLD - HTG - HTN - POLYARTHROPATHY - OA - GOUT - OSTEOPOROSIS - DEPRESSION - AKSHAT (On Cpap) - OBESITY III X-ray knee: 11/09/23. CXR: 06/11/23. Annual labs: 09/02/23. D/w pt about her findings, recent labs & imagines and further plan of care. Advised pt to f/u with Endo as directed. All meds verified with pt. Meds as directed. Cont OTC knee sleeve as directed. Diet and exercise explained in detail. BP diary education given. F/u with Endo as per schedule. Cont f/u with Ophtho as per schedule. Offered to refer to PT; but pt declined. Offered to refer to Rheumat; but pt declined. Offered to refer to Ortho; but pt declined. HM: WWE - 11/15, normal as per pt. Cont f/u with Gyne as per schedule. Mammo - 02/05/24, normal. DEXA - 04/15, osteoporosis ++. Colonoscopy - Long time ago. Pt declined. Cologuard 09/11/23 - neg. Flu - Pt declined. Tdap - 10/09. Pneumo - 02/11. Shingrix - Pt got 2 doses. F/u in 3 months. PTH, Ca before next visit. Annual labs in 09/16. [email or web address] Not available 03/31/2024 10:11:32 Plan of Treatment Reminders Order Date Submit Date Provider Last Modified By Organization Details Last Modified Time Details Appointments Follow Up 15 2024 09:00A Odin Faye MD Not available Not available Not available Lab unlisted lab - PTH biointact w/calcium 2023 024 [facility] (Lab), [address] [place], [address], 11/16/2023 08:18:49 PTH (parathyr oid hormone), intact + calcium, serum or plasma 2023 024 [email or web address] [facility] (Lab), [address] [place], [address], 04/07/2024 08:21:35 urinalysi s, dipstick 2024 025 [facility], [address] [facility], [place], [address], 06/15/2024 10:58:49 culture, urine + sensitivi ty [address] [facility] (Lab), [address] [place], [address], 06/15/2024 15:25:27 Referral orthopedi c surgeon referral - Please call patient to schedule an appointme nt. Thank you. 2023 024 [email or web address] Toño Johnston, [address], [place], [address], 12/09/2023 08:58:36 endocrino logy referral - Please call patient to schedule an appointme nt. Thank you, 2023 024 [email or web address] Madeleine Mcbride MD, [address] [facility] [address], [place], [address], 01/28/2024 15:12:00 Procedures None recorded. Surgeries None recorded. Imaging XR, knee, 3 view 2023 024 [facility], [address], [place], [address], 2023 11:38:52 XR, sacroilia c joint(s) 2023 024 56 [facility], [address], [address], [place], [address], 11/25/2023 10:25:53 Medication Orders naproxen 375 mg tablet,de layed release 2023 024 [facility], [place], [address], 11/09/2023 15:02:13 alendrona te 70 mg tablet 2023 024 [facility] [address], [place], [address], 12/30/2023 10:10:44 amlodipin e 5 mg tablet 2023 024 [facility] [address], [place], [address], 12/30/2023 10:10:48 losartan 100 mg tablet 2023 024 [facility] [address], [address], [place], [address], 12/30/2023 10:10:44 triamtere ne 37.5 mg-hydroc hlorothia zide 25 mg capsule 2023 024 [facility] [address], [place], [address], 12/30/2023 10:10:46 allopurin ol 300 mg tablet 2023 024 [facility] [address], [place], [address], 12/30/2023 10:10:43 rosuvasta tin 5 mg tablet 2023 024 [facility] [address], [address], [place], [address], 12/30/2023 10:10:47 tramadol 50 mg tablet 2023 024 [facility] [address], [place], [address], 12/30/2023 10:17:24 escitalop marty 10 mg tablet 2023 [facility] [address], [place], [address], 12/30/2023 10:10:45 alendrona te 70 mg tablet 2023 [facility] [address], [place], [address], 03/31/2024 09:52:20 amlodipin e 5 mg tablet 2023 [facility] [address], [place], [address], 03/31/2024 09:52:19 losartan 100 mg tablet 2023 [facility] [address], [address], [place], [place], [address], 03/31/2024 09:52:20 triamtere ne 37.5 mg-hydroc hlorothia zide 25 mg capsule 2023 024 [facility] [address], [address], [place], [place], [address], 03/31/2024 09:52:19 allopurin ol 300 mg tablet 2023 024 [facility] [address], [address], [place], [place], [address], 03/31/2024 09:52:19 rosuvasta tin 5 mg tablet 2023 [facility] [address], [address], [place], [address], 03/31/2024 09:52:22 tramadol 50 mg tablet 2023 [facility] [address], [address], [place], [address], 03/31/2024 10:05:52 meloxicam 7.5 mg tablet 2023 024 [facility] [address], [place], [address], 03/31/2024 10:06:16 escitalop marty 10 mg tablet 2023 024 [facility] [address], [address], [place], [address], 03/31/2024 09:52:19 Macrobid 100 mg capsule 2024 025 [facility] [address], [address], [place], [address], 06/15/2024 10:47:06 Patient TargetsNo targets recorded. Patient Instructions Encounter Date Encounter Id Patient Instructions Last Modified By Organization Details Last Modified Time 12/30/2023 [id number] starting a weigh t loss plan: care instructions [email or web address] Not available 12/30/2023 10:18:58 03/31/2024 [id number] starting a weigh t loss plan: care instructions [email or web address] Not available 03/31/2024 09:52:10 Reason for Referral Orthopedic Surgeon Referral for Pain of right knee joint Please call patient to schedule an appointment. Thank you. Referring Physician: Nicole Mckeon [facility], Encounter Date: 11/09/2023 Endocrinology Referral for I diopathic hypercalcemia Please call patient to schedule an appointment. Thank you, Referring Physician: Michael Faye [facility], Encounter Date: 12/30/2023 Results Created Date Observation Date Name Description Value Unit Range Abnormal Flag Note LastModifiedBy Organization Detail LastModifiedTime 12/22/19 24 12/22/2023 JANELLE FLORES (PTH) INT.W /CA intact parathyroid hormone 77.9 pg/mL 24- Not Available [facility] (Lab) [address] [place], [address], 12/22/2023 18:08:12 12/22/19 24 12/22/2023 PARAT HYROAkbar D HORM (PTH) INT.W /CA calcium 11.0 mg/dL 8.4-10 .2 high Not Available [facility] (Lab) [address] [place], [address], 12/22/2023 18:08:12 12/22/19 24 12/22/2023 URIC ACID SERUM uric acid 5.6 mg/dL 2.5-6. 2 Not Available [facility] (Lab) [address] [place], [address], 12/22/2023 19:06:30 12/22/19 24 12/22/2023 LIPID PANEL cholesterol 165 mg/dL 140-19 9 NIH LUPIS NSUS RECOM MENDA TION FOR GENEVIEVE STERO L: ADULT CHILD LOW RISK: <200 <170 BORDE RLINE : <200- 239 ----- HIGH RISK: >240 >200 Not Available [facility] (Lab) [address] [place], [address], 12/22/2023 19:05:17 12/22/19 24 12/22/2023 LIPID PANEL triglyceride s 191 mg/dL 0-150 high NIH LUPIS NSUS REPOR T RECOM MENDA TION FOR TRIGL YCERI BERNA: ADULT CHILD LOW RISK: <150 ----- BODER LINE: 150-1 99 ----- HIGH RISK: >200 ----- Not Available [facility] (Lab) [address] [place], [address], 12/22/2023 19:05:17 12/22/1912/22/2023 LIPID PANEL HDL cholesterol 34 mg/dL 40- low Not Available [facility] (Lab) [address] [place], [address], 12/22/2023 19:05:17 12/22/19 24 12/22/2023 LIPID PANEL LDL cholesterol, calculated 93 mg/dL 0-130 NIH LUPIS NSUS REPOR T RECOM MENDA TIONS FOR LDL: ADULT CHILD LOW RISK <130 <110 (OPTI MAL LDL) <100 ----- BORDE RLINE : 130-1 59 ----- HIGH RISK: >160 >130 A TRIGL YCERI DE RESUL T >400 INVAL IDATE S THE CALCU LATIO N FOR LDL FRACT IONAT ION - THE LDL RESUL T WILL NOT BE REPOR GRACIELA. Not Available [facility] (Lab) [address] [place], [address], 12/22/2023 19:05:17 12/22/19 24 12/22/2023 HEPAT IC/LI REX PANEL alkaline phosphatase 61 U/L 38-126 Not Available [facility] (Lab) [address] [place], [address], 12/22/2023 19:05:29 12/22/19 24 12/22/2023 HEPAT IC/LI REX PANEL alanine aminotransfe rase 45 U/L 0-35 high Not Available [facility] (Lab) [address] [place], [address], 12/22/2023 19:05:29 12/22/19 24 12/22/2023 HEPAT IC/LI REX PANEL aspartate aminotransfe rase 30 U/L 15-37 Not Available [facility] (Lab) [address] [place], [address], 12/22/2023 19:05:29 12/22/19 24 12/22/2023 HEPAT IC/LI REX PANEL bilirubin, total 1.00 mg/dL 0.20-1 .30 Not Available [facility] (Lab) [address] [place], [address], 12/22/2023 19:05:29 12/22/19 24 12/22/2023 HEPAT IC/LI REX PANEL bilirubin, conjugated (direct) 0.00 mg/dL 0.00-0 .30 Not Available [facility] (Lab) [address] [place], [address], 12/22/2023 19:05:29 12/22/19 24 12/22/2023 HEPAT IC/LI REX PANEL biliurubin,u ncong. (indirect) 0.60 mg/dL 0.00-1 .1 Not Available [facility] (Lab) [address] [place], [address], 12/22/2023 19:05:29 12/22/19 24 12/22/2023 HEPAT IC/LI REX PANEL total protein 7.4 g/dL 6.3-8. 2 Not Available [facility] (Lab) [address] [place], [address], 12/22/2023 19:05:29 12/22/19 24 12/22/2023 HEPAT IC/LI REX PANEL albumin 4.7 g/dL 3.0-4. 4 high Not Available [facility] (Lab) [address] [place], [address], 12/22/2023 19:05:29 12/22/19 24 12/22/2023 HEPAT IC/LI REX PANEL globulin 2.7 g/dL 2.6-4. 2 Not Available [facility] (Lab) [address] [place], [address], 12/22/2023 19:05:29 12/22/19 24 12/22/2023 HEPAT IC/LI REX PANEL A/G ratio 1.7 ratio 1.0-2. 0 Not Available [facility] (Lab) [address] [place], [address], 12/22/2023 19:05:29 03/31/20 24 03/31/2024 JANELLE FLORES (PTH) INT.W /CA intact parathyroid hormone 90.5 pg/mL 24-78 high Not Available [facility] (Lab) [address] [place], [address], 03/31/2024 14:35:25 03/31/20 24 03/31/2024 PARAT DENIZ FLORES (PTH) INT.W /CA calcium 11.6 mg/dL 8.4-10 .2 high Not Available [facility] (Lab) [address] [place], [address], 03/31/2024 14:35:25 06/15/19 25 06/15/2024 urina lysis , dipst ick Leukocytes (reference range: negative afshan/??l) Modera te Not Available [address], [address], 06/15/2024 10:46:33 06/15/19 25 06/15/2024 urina lysis , dipst ick Nitrite (reference rage: negative mg/dl) negati ve Not Available [address], [address], 06/15/2024 10:46:33 06/15/19 25 06/15/2024 urina lysis , dipst ick Urobilinogen (reference range: 0.2-1 mg/dl) 0.2 Not Available [address], [address], 06/15/2024 10:46:33 06/15/19 25 06/15/2024 urina lysis , dipst ick Protein (reference range: negative mg/dl) Trace Not Available [address], [address], 06/15/2024 10:46:33 06/15/19 25 06/15/2024 urina lysis , dipst ick pH (reference range: 5-7) 7.0 Not Available [address], [address], 06/15/2024 10:46:33 06/15/19 25 06/15/2024 urina lysis , dipst ick Blood (reference range: negative Cornelio/??l) Negati ve Not Available [address], [address], 06/15/2024 10:46:33 06/15/19 25 06/15/2024 urina lysis , dipst ick Specific [place] (reference range: 1.005-1.030) 1.010 Not Available [address], [address], 06/15/2024 10:46:33 06/15/19 25 06/15/2024 urina lysis , dipst ick Ketone (reference range: negative mg/dl) Negati ve Not Available [address], [address], 06/15/2024 10:46:33 06/15/19 25 06/15/2024 urina lysis , dipst ick Bilirubin (reference range: negative mg/dl) Negati ve Not Available [address], [address], 06/15/2024 10:46:33 06/15/19 25 06/15/2024 urina lysis , dipst ick Glucose (reference range: negative mg/dl) Negati ve Not Available [address], [address], 06/15/2024 10:46:33 06/15/19 25 06/15/2024 urina lysis , dipst ick Appearance Clear Not Available [address], [address], 06/15/2024 10:46:33 06/15/19 25 06/15/2024 urina lysis , dipst ick Color Yellow Not Available [facility] Terry [address], [place], [address], 06/15/2024 10:46:33 11/04/19 24 11/04/2023 US, duple x, venou s, lower extre mity, unila teral No observ ation record ed. [address], [place], [address], 11/04/2023 10:26:02 11/10/19 24 11/09/2023 XR, knee, 3 view No observ ation record ed. [facility] [address], [place], [address], 2023 14:31:17 02/08/20 24 02/05/2024 MAMMO , scree kayden, bilat eral No observ ation record ed. [address] [facility] [address], [place], [address], 03/31/2024 09:47:38 06/15/19 25 06/15/2024 XR, chest , 2 view No observ ation record ed. [address], [place], [address], 06/15/2024 16:11:08 Result Notes None recorded. Problems Name Problem SNOMED Code Status Onset Date Resolution Date Notes Provider Name and Address Organization Details Recorded Time Acute sinusitis 50396469 Active 2020 Not Available [facility] 3 07:31:19 Anthony hematuria 762581168 Completed Not Available [facility] 3 07:31:20 Sciatica 41488643 Active 2021 Not Available [facility] 3 07:31:20 Mixed anxiety and depressiv e disorder 888927033 Active 2021 Not Available [facility] 3 07:31:20 Gastroeso phageal reflux disease 190190868 Active 2019 Not Available [facility] 3 07:31:20 Osteoarth ritis of knee 291429426 Active 2016 Not Available [facility] 3 07:31:20 Lumbar spondylos is 048447265 Active 2021 Not Available [facility] 3 07:31:20 Headache 69024353 Completed Daly Pinto NP [address], [address], [place], [address] , [facility] 3 12:00:58 History of thyroid disorder 026700204 Active 2020 Not Available [facility] 3 07:31:20 Low back pain 245249243 Active 2021 Not Available [facility] 3 07:31:20 Retinal disorder 79530514 Active Not Available [facility] 3 07:31:20 Hypertrig lyceridem ia 451807880 Active 2020 Not Available [facility] 3 07:31:21 Depressiv e disorder 16469921 Active Not Available [facility] 3 07:31:21 Seasonal allergic rhinitis 850997992 Active 2019 Not Available [facility] 3 07:31:21 Sinusitis 12014489 Active 2017 Not Available [facility] 3 07:31:21 Hypertens shana disorder 31542569 Active 2019 Not Available [facility] 3 07:31:21 Hematoma 036922403 Completed Not Available [facility] 3 07:31:21 Memory impairmen t 695128477 Active 2020 Not Available [facility] 3 07:31:21 Furuncle 921681066 Completed Michael Faey MD [address], [address], [place], [address] , [employer] [facility] Consult 4 10:18:43 Environme ntal allergy 907753133 Active 2016 Not Available [facility] 3 07:31:21 Herniatio n of lumbar intervert ebral disc with sciatica 51224930066 4105 Active 2021 Not Available [facility] 3 07:31:22 Foot pain 53760924 Completed Not Available [facility] 3 07:31:22 Bilateral tinnitus 92677954995 02 Active 2019 Not Available [facility] 3 07:31:22 Anxiety 27260273 Active Not Available [facility] 3 07:31:22 Upper respirato ry infection 78151027 Completed Not Available [facility] 3 07:31:22 Hyperlipi demia 02596882 Active 2016 Not Available [facility] 3 07:31:22 Migraine without aura 83797210 Active 2016 Not Available [facility] 3 07:31:22 Osteoporo sis 05510742 Active 2021 Not Available [facility] 3 07:31:23 Urinary tract infectiou s disease 29874656 Completed Michael Faye MD [address] [place] [address], [address] , [facility] [email or web address] 4 16:13:03 Acid reflux 424062843 Active 2018 Not Available [facility] 3 07:31:23 Liver enzymes level above reference range 284858113 Active 2020 Not Available [facility] 3 07:31:23 Varicose veins of lower extremity 97288582 Active 2016 Not Available [facility] 3 07:31:23 Sleep apnea 99237016 Active Not Available [facility] 3 07:31:24 Urgent desire to urinate 00636585 Completed Not Available [facility] 3 07:31:24 Postmenop ausal state 61588540 Active 2021 Not Available [facility] 3 07:31:24 Hyperglyc emia 92158166 Active 2016 Not Available [facility] 3 07:31:24 Gout 72343060 Active 2021 Not Available [facility] 3 07:31:24 Skin lesion 29992130 Completed Not Available [facility] 3 07:31:25 Kidney stone 06373176 Completed Not Available [facility] 3 07:31:25 Obese 496732852 Active 2022 Daly Pinto NP [address], [address], [place], [address] , [employer] 3 11:56:43 Headache 52882578 Active 2022 Daly Pinto NP [address], [address], [place], [address] , [employer] 3 12:00:58 Lumbar radiculop athy 142888466 Active 2022 Michael Faye MD [address], [address], [place], [address] , [employer] 3 17:01:57 Obesity 721765600 Active 2022 Michael Faye MD [address], [address], [place], [address] , [employer] 3 17:02:46 Lipoma of lower leg 406779654 Active 2022 Michael Faye MD [address], [address], [place], [address] , [employer] 3 17:43:42 Idiopathi c hypercalc emia 305955938 Active 2022 Michael Faye MD [address], [address], [place], [address] , [employer] 3 14:31:47 Hyperpara thyroidis m 56422810 Active 2022 Daly Pinto NP [address], [address], [place], [address] , [employer] 3 17:11:28 Blood in urine 94346216 Active 2022 Daly Pinto NP [address], [address], [place], [address] , [place] [facility] [employer] [facility] 3 10:44:02 Abnormal uterine bleeding 79400869768 100 Active 2022 Daly Pinto NP [address], [place], [address] , [facility] 3 10:44:49 Acute urinary tract infection 242512985 Active 2022 Daly Pinto NP [address], [address], [place], [address] , [facility] [employer] [facility] 3 08:51:54 Dysuria 83865503 Active 2022 Daly Pinto NP [address], [address], [place], [address] , [facility] [employer] [facility] 3 10:52:22 Urinary tract infectiou s disease 54910394 Active 2023 Michael Faye MD [address], [address], [place], [address] , [facility] [employer] [facility] 4 16:13:03 Bilateral earache 534268032 Active 2023 Michael Faye MD [address], [address], [place], [address] , [facility] [employer] [facility] 4 16:33:22 Candidal vulvovagi nitis 65141058 Active 2023 Michael Faye MD [address], [address], [place], [address] , [facility] 4 16:37:42 Gouty arthropat hy 412560896 Active 2023 Michael Faye MD [address], [place], [address] , [facility] - [facility] [employer] [facility] 4 09:56:46 Polyarthr opathy 53793717 Active 2023 Michael Faye MD [address] [facility] [address], [place], [address] , [facility] [employer] [facility] 4 09:58:59 Obstructi ve sleep apnea syndrome 71825039 Active 2023 Michael Faye MD [address] [facility] [address], [place], [address] , [facility] [employer] [facility] [employer] [facility] 4 10:07:57 Pain of right knee joint 10409663417 4100 Active 2023 LILLY Beltran [address] [facility] [address], [place], [address] , [facility] [employer] [facility] 4 14:54:22 Hypercalc emia 23079453 Active 2023 LILLY Beltran [address] [facility] [address], [place], [address] , [employer] [facility] [employer] [facility] 4 14:58:37 Problem Notes None recorded. Procedures Surgical History Date Name Laterality Status Provider Name and Address Organization Details Recorded Time 09/29/19 24 Medicare Wellness CPT Code, subsequent completed Reji Ashton [employer] [facility] 09/29/2023 14:15:26 06/18/19 24 Transitional_Care_ Management completed Reji Ashton [place] [employer] [facility] [employer] [facility] 06/18/2023 16:22:09 06/23/19 23 Most Recent Mammogram completed Daly Monte RN [employer] [facility] 10/09/2022 09:25:48 04/03/20 22 Most Recent Bone Density completed Not Available [facility] 07/23/2022 07:26:53 05/25/19 18 Knee Replacement completed Not Available [facility] 07/23/2022 07:26:55 05/25/19 02 repair of ovary completed Not Available [facility] 07/23/2022 07:26:55 05/25/18 92 Cholecystectomy completed Not Available [facility] 07/23/2022 07:26:55 Imaging Results Imaging Date Name Status LastModified by Organiz [facility] Details LastModified Time 11/04/2023 US, duplex, venous, lower extremity, unilateral completed [address], [place], [address], 11/04/2023 10:26:02 11/09/2023 XR, knee, 3 view completed [facility] [address], [place], [address], 2023 14:31:17 02/05/2024 MAMMO, screening, bilateral completed [email or web address] [facility] [address], [place], [address], 03/31/2024 09:47:38 06/15/2024 XR, chest, 2 view completed [address], [place], [address], 06/15/2024 16:11:08 Procedure Notes None recorded. Medical Equipment None Reported. Allergies Allergen ID Allergen Name Allergen Category Reaction Reaction Severity Criticality Documentation Date Start Date Code Code System Note Provider Name and Address Organization Details Recorded Time 36367 Substance with sulfonami de structure and antibacte rial mechanism of action (substanc e) medicatio n nausea Not available Not available 07/23/2022 84590 8003 SNOMED Not Available [employer] 3 07:36:13 39185 Zithromax medicatio n other Not available Not available 03/31/2024 4 RxNorm cause s pt to be super jitte ry ARAMIS Mccarty [facility] 4 09:43:14 [id number] Macrobid medicatio n anaphylax is severe high 06/16/20242024 02624 1 RxNorm state s her throa t close d up with in the hour of takin g it, had to go to ER Yara scanlon [facility] 5 09:32:31 Medications Name Sig Start Date [...] CAPSULE BY MOUTH ONCE DAILY AT NIGHT 01/25 /2024 completed Not Available Not Available Not Available [...] Not Available Not Available Not Avai lable mupirocin 2 % topical ointment APPLY SMALL [...] Not Available Not Available Not Available Afluria 2178-9857 (PF) 45 mcg (15 mcg x 3)/0.5 mL intramusc ular syringe USE DIRECTED active Not Available Not Available No t Available Afluria (PF) 45 mcg (15 mcg x 3)/0.5 [...] and Address Organization Details Last Updated DateTime 4 160.02 cm 41.7 kg/m2 922166. 36 g 98.5 [degF] 79 /min 20 /min 96 % 96 % 142 mm[Hg] 78 mm[Hg] Daly Monte RN [facility] [employer] [facility] 4 14:38:06 Date Recorded Body height Body mass index (BMI) Body weight Body temperature Heart rate Respiratory rate Oxygen saturation Oxygen saturation in Arterial blood by Pulse oximetry Systolic blood pressure Diastolic blood pressure Provider Name and Address Organization Details Last Updated DateTime 4 160.02 cm 40.9 kg/m2 164643. 19 g 98.1 [degF] 76 /min 20 /min 98 % 98 % 136 mm[Hg] 76 mm[Hg] Reji Ashton [facility] [employer] [facility] 4 09:57:01 Date Recorded Body height Body mass index (BMI) Body weight Body temperature Heart rate Oxygen saturation Oxygen saturation in Arterial blood by Pulse oximetry Systolic blood pressure Diastolic blood pressure Provider Name and Address Organization Details Last Updated DateTime 4 160.02 cm 40.3 kg/m2 368016. 98 g 97.2 [degF] 62 /min 98 % 98 % 138 mm[Hg] 78 mm[Hg] Regla Mukherjee RN [facility] [employer] [facility] 4 09:45:57 Date Recorded Body height Body mass index (BMI) Body weight Body temperature Heart rate Respiratory rate Oxygen saturation Oxygen saturation in Arterial blood by Pulse oximetry Systolic blood pressure Diastolic blood pressure Provider Name and Address Organization Details Last Updated DateTime 5 160.02 cm 41.5 kg/m2 223722. 61 g 97.3 [degF] 74 /min 20 /min 97 % 97 % 160 mm[Hg] 90 mm[Hg] Daly Monte RN [facility] [employer] [facility] 5 10:40:55 Social History Question Answer Notes LastModified by Organization Details LastModified Time Tobacco Smoking Status Never Smoker Elida scanlon [facility] [employer] [facility] 06/18/2023 16:10:12 Do You Have An Advance Directive? Yes [id number] Information not available 07/23/2022 What Is Your Level Of Alcohol Consumption? None [id number] Information not available 07/23/2022 Are You Blind Or Do You Have Difficulty Seeing? No Information not available 06/18/2023 Is Blood Transfusion Acceptable In An Emergency? Yes Information not available 06/18/2023 What Is Your Level Of Caffeine Consumption? Moderate [id number] Information not available 07/23/2022 How Much Tobacco Do You Chew? None [id number] Information not available 07/23/2022 What Is Your [...] Type Of Diet Are You Following? GLUTENFREE [email or web address] Information not available 12/30/2023 Which Illicit Or Recreational Drugs Have You Used? None Information not available 06/18/2023 Do You Or Have You Ever Used E-cigarettes Or Vape? Never Used Electronic Cigarettes Information not available 06/18/2023 What Is The Highest Grade Or Level Of School You Have Completed Or The Highest Degree You Have Received? [id number] Information not available 06/18/2023 What Is Your [...] not available 06/18/2023 Where Do You Live? [facility] Information not available 06/18/2023 Advance Directive- Providers [...] Do You Have A Medical Power Of Blogs Manager? No Information not available 06/18/2023 What Was [...] Anxious, Or Unable To Sleep At Night)? [id number] Information not available 11/09/2023 Do You Use [...] 06/18/2023 What is your exercise level? Moderate [email or web address] Information not available 12/30/2023 Mental Status Question Answer Note LastModified by Organization D etails LastModified Time Do you have difficulty concentrating, remembering or making decisions? No Information no t available 06/18/2023 Family History Relationship Description Onset Age of this Age Resolved Age Notes LastModified by Organization Details LastModified Time Father No current problems or disability [id number] Not available 07/23/2022 07:26:58 Mother No current problems or disability [id number] Not available 07/23/2022 07:26:58 Medical History Condition Response BACK INJECTIONS Y ALLERGIES/HAYFEVER Y HIGH CHOLESTEROL / HYPERLIPIDEMIA Y BACK / NECK PROBLEMS Y OBESITY Y GERD/NAUSEA Y HEADACHES/MIGRAINES Y HYPERTENSION Y ANXIETY DISORDER Y Gynecological History Statement/Question Response If Post Menopausal, Age at Menopause 49 Date of Last Mammogram 06/23/2022 Date of Last Colonoscopy Most Recent Mammogram 06/23/2022 Most Recent Bone Density 04/03/2022 Obstetrics History GPAL:G 0 P 0 0 0 0 Immunizations Vaccine Type Date Status Note Provider Nam e and Address Organization Details Recorded Time Influenza, split virus, quadrivalent, preservative 8 completed Not Available [facility] 07/23/2022 07:36:04 Influenza, split virus, trivalent, preservative 5 completed Not Available [facility] 07/23/2022 07:36:04 zoster live 5 completed Not Available [facility] 07/23/2022 07:36:04 Influenza, split virus, trivalent, PF 4 completed Not Available [facility] 07/23/2022 07:36:04 Pneumococcal conjugate PCV 13 0 completed Not Available [facility] 07/23/2022 07:36:05 Influenza, high-dose, quadrivalent, PF 0 completed Not Available [facility] 07/23/2022 07:36:05 Tdap 8 completed Not Available [facility] 07/23/2022 07:36:05 Influenza, split virus, quadrivalent, PF 6 completed Not Available [facility] 07/23/2022 07:36:05 Past Encounters Encounter ID Performer Location Encounter Start Date Encounter Closed Date Diagnosis/Indication Diagnosis SNOMED-CT Code Diagnosis ICD10 Code Diagnosis Note [id number] [facility] [address] [place] [address] 1 07/24/2020 00:00:00 07/24/2020 09:44:41 [id number] [facility] [address] [place] [address] 10/31/2020 00:00:00 10/31/2020 09:16:25 [id number] [facility] [address] [place], [place] [address] [place] [address] 11/20/2020 00:00:00 11/20/2020 12:21:01 [id number] [facility] [address] [place] [address] 02/13/2021 00:00:00 02/13/2021 14:33:22 [id number] [facility] [address] [place] [address] 02/26/2021 00:00:00 02/26/2021 14:32:03 [id number] [facility] [address] [place] [address] 07/24/2021 00:00:00 07/24/2021 14:56:44 [id number] [facility] [address] [place] [address] 10/09/2021 00:00:00 10/09/2021 14:38:30 [id number] [facility] [address] [place] [address] 02/26/2022 00:00:00 02/26/2022 10:42:26 [id number] [facility] [address] [place] [address] 03/18/2022 00:00:00 03/19/2022 15:55:39 [id number] [facility] [address] [place] [address] 04/29/2022 00:00:00 04/29/2022 18:09:05 [id number] [facility] [address] [place] [address] 05/06/2022 00:00:00 05/06/2022 15:25:01 [id number] Daly Pinto NP [facility] [place] [address] [place] [address] 08/06/2022 11:17:09 08/06/2022 12:50:33 Hyperlipidemia 63087843 E78.5 Low fat diet. Statins cause pain. 02/27/22 last lab result. Essential hypertension 94792129 I10 amlodipine 5 mg po daily.ASA 81 mg po dailyLosar puckett 100 mg po daily.tria mterene 37.5 mg-hctz25 mg po daily. (this can increase gout flare, so stopped and started on losartan only) Osteoporosis 27379468 M8 1.0 alendronat e 70 mg po weekly pt stopped. Wants to follow Dr. Sims holistic provider and be on vitamins.M eloxicam 15 mg po daily.Tram adol 50 mg po tid prn- pt trying to wean off. Acid reflux 308720208 K2 1.9 famotidine 20 mg po daily. Sleep apnea 43866437 G47 .30 Gout 99452099 M10.9 allopurino l 100 mg po daily. Seasonal a llergic rhinitis 000117030 J30.2 cetirizine 10 mg po daily.Flon ase prn Mixed anxi ety and depressive disorder 350655398 F41.8 Pt weaned herself off the lexapro. Hydroxyzin e prn use. Sciatica 00262924 M54.32 cyclobenza shalini 10 mg po tid prn.Gabape ntin 300 mg po nightly. Obese 313414196 E66.9 Diet and exercise. Wegovy and phentermin e discussed. Phentermin e 15 mg po daily. Headache 22186198 R51.9 [id number] Michael Faye MD [address] [address] 08/07/2022 16:38:36 08/07/2022 17:44:28 Cramp in lower limb 056354252 R25.2 B/L Lumbar radiculopathy 128 641659 M54.16 Gout 17232429 M10.9 Obesity 394382436 E66.9 Lipoma of lower leg 1890 08665 D17.24 Lt [id number] Daly Pinto NP [address] [address] 09/09/2022 09:34:15 09/09/2022 10:58:16 Blood in urine 61875205 R31.9 Sending urine for culture. Blood with wiping- no periods for 15 years. Abnormal u terine bleeding 7702538879 9100 N93.9 referring to perinatal technician- pt to find provider that accepts insurance. Obese 120685655 E66.9 Diet and exercise. Phentermin e 15 mg po daily. Down 2 lbs. Would like to continue. [id number] Daly Pinto NP [address] [address] 10/09/2022 09:13:04 10/09/2022 10:05:37 Obese 545661147 E66.9 Diet and exercise. Phentermin e 15 mg po daily. Down 2 lbs. Would like to continue.I LPMP last fill 09/09/22.Ph entermine 37.5 mg po daily. Essential hypertension 22231664 I10 amlodipine 5 mg po daily.ASA 81 mg po dailyLosar puckett 100 mg po daily.tria mterene 37.5 mg-hctz25 mg po daily. (this can increase gout flare, so stopped and started on losartan only) Gastroesop hageal reflux disease 496352771 K21.9 [id number] Daly Pinto NP [address] [address] 10/24/2022 10:41:24 10/24/2022 11:44:26 Dysuria 98498176 R30.0 R30.9 Patient was started on antibiotic and advised to increase water intake.Cul ture sent.Urina lysis in office +nitrites [id number] Daly Pinto NP [address] [address] 01/21/2023 13:58:46 01/21/2023 18:03:00 Gout 94513392 M10.9 allopurino l 200 mg po daily. Seeing Dr. Becerra. Sleep apnea 88183532 G47 .30 CPAP Acid reflux 693228066 K2 1.9 famotidine 20 mg po daily. Hyperparathyroidism 6699 9008 E21.3 referred to endo, but patient cancelled. Osteoporosis 05566571 M8 1.0 alendronat e 70 mg po weekly pt stopped. Wants to follow Dr. Sims holistic provider and be on vitamins.M eloxicam 15 mg po daily.Tram adol 50 mg po tid prn- pt trying to wean off. Not able to yet- trying to lose weight. Essential hypertension 00870215 I10 amlodipine 5 mg po daily.ASA 81 mg po dailyLosar puckett 100 mg po daily.tria mterene 37.5 mg-hctz25 mg po daily. (this can increase gout flare, so pt monitoring ) Migraine without aura 56 907252 G43.009 Hyperlipidemia 03978040 E78.5 Low fat diet. Statins cause pain. 02/27/22 last lab result. Anxiety 32439345 F41.9 Obese 377954885 E66.9 Diet and exercise. Lumbar spondylosis 33134 0009 M47.896 Osteoarthr itis of knee 797009860 M17.9 [id number] Michael Faye MD [address] [address] 06/18/2023 16:09:07 06/18/2023 17:00:32 Seen in emergency clinic 599458783 Z76.89 Recent ED records reviewed. 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 Obesity 563314786 E66.9 Osteoporosis 16959236 M8 1.0 Screening mammography 24 252442 Z12.31 Screening for malignant neoplasm of colon 435115109 Z12.11 Urinary tr act infectious disease 73175475 N39.0 Obstructiv e sleep apnea syndrome 18475844 G47.33 [id number] Michael Faye MD [address] [address] 09/29/2023 14:13:02 09/29/2023 15:00:22 Hypertensive disorder 17224187 I10 Gouty arthropathy 241487 008 M10.09 Depressive disorder 3548 9007 F32.A Polyarthropathy 18828508 M13.0 Obesity 495727078 E66.9 Osteoporosis 13333819 M8 1.0 Obstructiv e sleep apnea syndrome 23477559 G47.33 Adult [facility] th examination 843885914 Z00.00 Screening for disorder 317912030 Z13.9 Hyperlipidemia 09911768 E78.5 Liver enzy mes level above reference range 948981705 R74.01 Idiopathic hypercalcemia 210937076 E83.52 Essential hypertension 86812330 I10 [id number] LILLY Beltran [address] [address] 11/09/2023 14:20:26 11/09/2023 15:06:36 Pain of right knee joint 5405708017 82124 M25.561 Hypercalcemia 36867058 E 83.52 [id number] Michael Faye MD [address] [address] 12/22/2023 09:14:13 12/22/2023 09:30:39 [id number] Michael Faye MD [address] [address] 12/30/2023 09:42:46 12/30/2023 10:33:19 Hypertensive disorder 97159540 I10 Gouty arthropathy 339556 008 M10.09 Depressive disorder 3548 9007 F32.A Polyarthropathy 63731911 M13.0 Obesity 152963166 E66.9 Osteoporosis 85421565 M8 1.0 Obstructiv e sleep apnea syndrome 05538314 G47.33 Hyperlipidemia 17306338 E78.5 Liver enzy mes level above reference range 029238104 R74.01 Idiopathic hypercalcemia 410284549 E83.52 Osteoarthr itis of knee 370655874 M17.9 [id number] Michael Faye MD [facility] [address] 03/31/2024 09:38:14 03/31/2024 10:14:55 Idiopathic hypercalcemia 277538532 E83.52 Gouty arthropathy 835259 008 M10.09 Hypertensive disorder 38 414279 I10 Depressive disorder 3548 9007 F32.A Polyarthropathy 69874069 M13.0 Obesity 273666655 E66.9 Osteoporosis 40512333 M8 1.0 Obstructiv e sleep apnea syndrome 95610844 G47.33 Hyperlipidemia 66603950 E78.5 Liver enzy mes level above reference range 989701452 R74.01 Osteoarthr itis of knee 387573916 M17.9 [id number] LILLY Beltran [address] [address] 06/15/2024 10:16:28 06/15/2024 10:56:03 Acute urinary tract infection 463337488 N39.0 hx of sepsis related to UTI Health Concerns Section Related Observation LastModified by Organization Detai ls LastModified Time None Recorded Concern Status LastModified by Organization Details LastModified Time None Recorded Advance Directives Directive Y: Payers Encounter Date Sequence Insurance Name Policy Number Policy Dunham Covered Member ID Dunham Member ID Guarantor Name 11/09/2023 1 [facility] (MEDICARE REPLACEMENT/A DVANTAGE - HMO) [id number] Rody Monson [id number] Rody Monson 12/22/2023 1 [facility] (MEDICARE REPLACEMENT/A DVANTAGE - HMO) [id number] Rody Monson [id number] Rody Monson 12/30/2023 1 [facility] (MEDICARE REPLACEMENT/A DVANTAGE - HMO) [id number] Rody Monson [id number] Rody Monson 03/31/2024 1 [facility] (MEDICARE REPLACEMENT/A DVANTAGE - HMO) [id number] Rody Monson [id number] oRdy Monson 06/15/2024 1 [facility] (MEDICARE REPLACEMENT/A DVANTAGE - HMO) [id number] Rody Monson [id number] Rody Monson Notes Date Note Type Note Provider Name and Address Organization Details Recorded Time 11/09/2023 text/html Rody Monson is a 67 year old female patient of Dr. Faye here today for knee complaints. Patient reports leg hurts from hip to ankle for about 8 months. Went to water aerobics 2 weeks ago and entire knee was swollen. Worried about blood clot but when she went to the ED they said it was not a blood clot. Patient prescribed naproxen, which she reports really helped with knee inflammation. Takes tramadol as well. Had prior knee replacement. With Dr. Johnston at [facility] Concerns with hypercalcemia, would like PTH checked with next labs. LILLY Beltran [address] [facility], [place], [address], [facility] 11/09/2023 15:03:36 12/30/2023 text/html Pt is here for f /u on her lab and chronic conditions. Doing overall well. Denies any problem with meds. Denies any new concern. Pt has chronic multiple joints pain and morning stiffness and is on Tramadol and Meloxicam for it. Pt has not seen any specialist for this in the past. Michael Faye MD [address] [facility], [facility] [address], [place], [address], [facility] 12/30/2023 10:19:23 03/31/2024 text/html Pt is here for f /u on her meds and chronic conditions. Doing overall well. Denies any problem with meds. Denies any new concern. Pt wants to repeat her PTH and Ca today. Pt has not seen Endo yet. Pt has chronic multiple joints pain and morning stiffness and is on Tramadol and Meloxicam for it. Pt has not seen any specialist for this in the past. Pt is f/u with functional medicine doctor in [place] and in on supplements by them. Michael Faye MD [address] [facility], [place], [address], [facility] 03/31/2024 10:12:43 06/15/2024 text/html Rody Monson is a 68 year old female patient here today for urinary concerns She states she gets UTIs frequently She noticed blood in her urine last night, pelvic pain, pressure, urgency Nicole Mckeon, MUSHROOM LABORER [address] [facility], [facility] [address], [place], [address], [place] [facility] 06/15/2024 10:51:32 OBGyn Episode No OBEpisode recorded.
--- OUTSIDE RECORDS SUMMARY | 2024-06-17 00:31 | XMS_ITS | Clinical Summary ---
Author Organization [facility] Address [address] [place] [address]. [place] [address] [place] [address] Care Team Providers Care Felt Hanger Name Role Phone Unavailable Primary Care Provider Unavailabl e Social History Tobacco Use Types Packs/Day Years Used Date Smoking Tobacco: Never Assessed Comments Unknown Sex and Gender Information Value Date Recorded Sex Assigned at Not on file Legal Sex Female 7:03 PM CDT Gender Identity Not on file Sexual Orientation Not on file Plan of Treatment Health Maintenance Due Date Last Done Comments Colorectal Cancer Screening Colonoscopy (10 Years) 1954 Hepatitis C 1972 DTaP, Tdap and Td Vaccines ( 1 - Tdap) 1973 Mammogram Screening 1994 Zoster Vaccines (1 of 2) 2004 Dexa Scan (General) 11/11/2019 Pneumococcal Vaccine: 65+ Ye ars (1 of 1 - PCV) 11/11/2019 COVID-19 Vaccine (2023-2 5 season) 2024 Influenza Adult (#1) 2024 RSV Immunization or 60+ Years (1 - 1-dose 75+ series) 2029 Meningococcal Vaccine Aged Out No kristy teodoro eligible based on patient's age to complete this topic RSV Immunizations Under 20 Months Aged Out No longer eligible based on patient's age to complete this topic
--- OUTSIDE RECORDS SUMMARY | 2024-06-17 00:31 | XMS_ITS | Patient Health Summary ---
Author Organization [facility] Address [address] [place] [address] Care Team Providers Care Manager Psychiatry Name Role Phone Fabiola Melo MD Unavailable [phone] Brittany Elias MD Primary Care Provider Note from [facility],non-owned Affiliates and Associated Physician Practices is amultiple site organization consisting of ambulatory clinics and hospital sitesin [place], [place], [place] and [place]. This disclosure is being madepursuant to the Care Everywhere program and may not contain all information available regarding this patient. Last updated 18.[facility] Allergies * Sulfa Drugs Medications * Be aware that medications may not be up to date on this document. Alwaysverify current medications with the patient. * triamterene-hydrochlorothiazide (DYAZIDE) 37.5-25 MG capsule Take 1 Cap by mouth once daily. * LOSARTAN POTASSIUM PO Take 100 mg by mouth once daily * Multiple Vitamin (STRESS B PO) Take by mouth. * Omeprazole (PRILOSEC PO) Take 20 mg by mouth once daily as needed * simvastatin (ZOCOR) 20 MG tablet Take 20 mg by mouth at bedtime * fluticasone propionate (FLONASE) 50 MCG/ACT nasal spray [place] 2 sprays into each nostril nightly as needed * SUMAtriptan (IMITREX) 25 MG tablet Take 25 mg by mouth daily as needed - may repeat one time for Migraine Maximum daily dose: 200 mg/24 hours * metoprolol succinate XL 24hr (TOPROL XL) 50 MG tablet(Started 02/14/2018) Take 0.5 tablets by mouth once daily * amoxicillin (AMOXIL) 500 MG capsule(Started 04/12/2018) Take 4 capsules by mouth pre-Procedure once for 1 dose Take 4 pills 1hr prior to dental appointment 1 refill remaining * celecoxib (CELEBREX) 200 MG capsule(Started 08/23/2018) TAKE 1 CAPSULE BY MOUTH TWICE A DAY 3 refills remaining * aspirin (ASPIRIN) 81 MG tablet Take 1 tablet by mouth once daily * doxycycline hyclate (VIBRAMYCIN) 50 MG capsule Take 1 capsule by mouth once daily * omeprazole (PRILOSEC) 40 MG capsule Take 1 capsule by mouth once daily * raNITIdine (ZANTAC) 150 MG tablet(Started 01/08/2019) Take 150 mg by mouth 2 times daily 1 refill left Active Problems Problem Noted Date Diagnosed Date Primary osteoarthritis of right knee 03/01/2019 Status post left knee replacement 02/11/2018 Primary osteoarthritis of both knees 12/22/2017 Immunizations * INFLUENZA VACCINE, QUADR. (FLUZONE; FLULAVAL; FLUARIX; AFLURIA QUADRIVALENT; 6MO+), 0.5 ML (IIV4)(Given 02/12/2018) Social History Tobacco Use Types Packs/Day Years Used Date Smoking Tobacco: Former Smokeless Tobacco: Former Quit: 05/25/2001 Alcohol Use Standard Drinks/Week Comments No 0 (1 standard drink = 0.6 oz pur e alcohol) Sex and Gender Information Value Date Recorded Sex Assigned at Not on file Gender Identity Not on file Sexual Orientation Not on file Last Filed Vital Signs Vital Sign Reading Time Taken Comments Blood Pressure 137/64 02/14/2018 8:15 AM CDT Pulse 64 02/14/2018 8:15 AM CDT Temperature 36.8 ??C (98.2 ??F) 02/14/2018 8:15 AM CD T Respiratory Rate 18 02/14/2018 8:15 AM CDT Oxygen Saturation 95% 02/14/2018 8:15 AM CDT Inhaled Oxygen Concentration - - Weight 105.2 kg (232 lb) 02/28/2019 11:22 AM CDT Height 160 cm (5' 3 ) 02/28/2019 11:22 AM CDT Body Mass Index 41.1 02/28/2019 11:22 AM CDT Medical Devices Implanted Type Area Manager Air Device Identifier Shelf Expiration Date Model / Serial / Lot Cmnt Bone Cblt 40gm Hvisc Strl Implanted:Qty: 1 on 02/11/2018 by Toño Johnston MD at [facility] Left: Knee [employer] 02/21/2019 600-15-000 / / [id number] Cmpnt Ptlr 28mm 1 Pg Wire Ascnt Arcm Kn Implanted:Qty: 1 on 02/11/2018 by Toño Johnston MD at [facility] Left: Knee [employer] 01/29/2023 [id number] / / [id number] Tray Tib 71mm Kn Cocr I Beam Implanted:Qty: 1 on 02/11/2018 by Toño Johnston MD at [facility] Left: Knee [employer] 12/02/2027 [id number] / / [id number] Cmpnt Fem Kn Lt Cr Cmnt Prm Vngrd Intlk Implanted:Qty: 1 on 02/11/2018 by Toño Johnston MD at [facility] Left: Knee [employer] 10/21/2027 [id number] / / [id number] Brng [id number] Vngrd Arcm Kn Ant Stab Implanted:Qty: 1 on 02/11/2018 by Toño Johnston MD at [facility] Left: Knee [employer] 12/22/2022 [id number] / / [id number] Procedures * XR KNEE BILAT 3VW(Performed 02/28/2019) Performed for Presence of left artificial knee joint, Right knee pain, unspecified chronicity * XR KNEE LEFT 3VW(Performed 03/23/2018) Performed for Aftercare following left knee joint replacement surgery * HGB HCT PANEL(Performed 02/13/2018) * CULTURE STREP GROUP A(Performed 02/13/2018) * STREP A SCREEN DIRECT W RFLX STREP A CULTURE(Performed 02/13/2018) * HGB HCT PANEL(Performed 02/12/2018) * HOME CPAP/BIPAP FOR HOSP USE: NOCTURNAL 02(Performed 02/12/2018) * ARTHROPLASTY TOTAL KNEE(Performed 02/11/2018) * HOME CPAP/BIPAP FOR HOSP USE: NOCTURNAL 02(Performed 02/11/2018) * HOME CPAP/BIPAP FOR HOSP USE: NOCTURNAL 02(Performed 02/11/2018) * CBC W AUTO DIFFERENTIAL(Performed 01/18/2018) Performed for Preop examination * COMPREHENSIVE METABOLIC PANEL(Performed 01/18/2018) Performed for Preop examination * CULTURE MSSA/MRSA(Performed 01/18/2018) Performed for Preop examination * EKG 12-LEAD(Performed 01/18/2018) Performed for Preop examination * XR KNEE BILAT 3VW(Performed 12/07/2017) Performed for Chronic pain of both knees * XR KNEE BILAT 3VW(Performed 06/06/2014) Performed for Pain in joint, lower leg, unspecified laterality Results * XR KNEE BILAT 3VW (02/28/2019 11:44 AM CDT) Only the most recent of3 resultswithin the time period is included. Anatomical Region Laterality Modality Lower Extremity Computed Radiogr aphy Narrative 02/28/2019 11:47 AM CDT Nata, Ana E ? 03/01/2019 ??3:11 PM SEE PROGRESS NOTES FOR RESULTS Hali Birmingham PA-C DIAGNOSTIC IM AGING ORDERABLES * XR KNEE LEFT 3VW (03/23/2018 12:18 PM CDT) Anatomical Region Laterality Modality Lower Extremity Computed Radiogr aphy Narrative 04/07/2018 12:19 PM MATERIAL CONTROL ASSOCIATE Santa Fuller, RT(R) ? 04/07/2018 12:19 PM See progress notes for results Raulito Lopez PA-C DIAGNOSTIC IMAGING ORDERABLES * (ABNORMAL) HGB HCT PANEL (02/13/2018 6:03 AM CDT) Only the most recent of2 resultswithin the time period is included. Hemoglobin 9.8(L) 12.0 - 15.6 gm/dL 02/13/2018 6:16 AM CDT [facility] Hematocrit 30.6(L) 35.9 - 45.5 % 02/13/2018 6:16 AM CDT [facility] Blood BLOOD SPECIMEN / Unknown Venipuncture / Unknown 02/13/2018 6:03 AM CDT 02/13/2018 6:10 AM CDT Toño Johnston MD LAB - HEMATOLOGY ORD ERABLES Performing Organization Address [facility] Co de Phone Number [facility] [address] [place] [address] * STREP A SCREEN DIRECT W RFLX STREP A CULTURE (02/13/2018 12:08 AM CDT) Strep A Rapid Negative Negative 02/13/2018 12:43 AM CDT [facility] Microbiology ENTIRE THROAT (SURFACE REGION OF NECK) / Unknown Collection / Unknown 02/13/2018 12:08 AM CDT 02/13/2018 12:21 AM CDT Narrative [facility] - 02/13/2018 12:43 AM CDT Test has reflexed to a Strep A culture. Luis Carlos [facility] - MICROBIO LOGY ORDERABLES Performing Organization Address [facility] Co de Phone Number [facility] [address] [place] [address] * CULTURE STREP GROUP A (02/13/2018 12:08 AM CDT) Culture Negative for beta-hemolytic Streptococcus Group A MARY BETH 02/15/2018 6:[address] [facility] MICROBIOLOGY Microbiology ENTIRE THROAT (SURFACE REGION OF NECK) / Unknown Collection / Unknown 02/13/2018 12:08 AM CDT 02/13/2018 12:21 AM CDT Luis Carlos Palmer [facility] - MICROBIO LOGY ORDERABLES Performing Organization Address City/[facility] Co de Phone Number [facility] MICROBIOLOGY [address] [place] [address], [facility] [phone] * CULTURE MSSA/MRSA (01/18/2018 8:27 AM CDT) Culture Negative for Staphylococcus aureus (MRSA/MSSA) MARY BETH 01/20/2018 1:[address] [facility] MICROBIOLOGY Microbiology SPECIMEN FROM NASAL FOSSAE / Unknown Collection / Unknown 01/18/2018 8:27 AM CDT 01/18/2018 11:19 AM CDT Toño Johnston MD LAB - MICROBIOLOGY O RDERABLES [facility] MICROBIOLOGY [address] [place] [address], [facility] [phone] * CBC W AUTO DIFFERENTIAL (01/18/2018 8:27 AM CDT) WBC 5.8 4.4 - 10.7 x10E9/L 01/18/2018 11:25 AM CDT [facility] WBC Corrected x10E9/L 01/18/2018 11:25 AM CDT [facility] RBC 4.02 3.80 - 5.20 x10E12/L 01/18/2018 11:25 AM CDT [facility] Hemoglobin 12.4 12.0 - 15.6 gm/dL 01/18/2018 11:25 AM CDT [facility] Hematocrit 38.2 35.9 - 45.5 % 01/18/2018 11:25 AM CDT [facility] MCV 95.0 80.7 - 98.3 fl 01/18/2018 11:25 AM CDT [facility] MCH 30.8 26.7 - 34.0 pg 01/18/2018 11:25 AM CDT [facility] MCHC 32.5 30.8 - 35.9 gm/dL 01/18/2018 11:25 AM CDT [facility] Platelet Count 213 153 - 416 x10E9/L 01/18/2018 11:25 AM CDT [facility] RDW-CV 13.6 12.1 - 14.9 % 01/18/2018 11:25 AM CDT [facility] MPV 11.6 9.4 - 12.9 fl 01/18/2018 11:25 AM CDT [facility] Neutrophils % 50.0 44.0 - 73.0 % 01/18/2018 11:25 AM CDT [facility] Lymphocytes % 31.4 20.0 - 43.0 % 01/18/2018 11:25 AM CDT [facility] Monocytes % 11.9 5.0 - 13.0 % 01/18/2018 11:25 AM CDT [facility] Eosinophils % 4.3 0.0 - 6.0 % 01/18/2018 11:25 AM CDT [facility] Basophils % 1.4 0.0 - 2.0 % 01/18/2018 11:25 AM CDT [facility] Immature Granulocytes 1.0 0 - 1 % 01/18/2018 11:25 AM CDT [facility] Neutrophil Absolute 2.91 2.01 - 7.14 x10E9/L 01/18/2018 11:25 AM CDT [facility] Lymphocytes Absolute 1.83 1.07 - 3.94 x10E9/L 01/18/2018 11:25 AM CDT [facility] Monocytes Absolute 0.69 0.26 - 1.07 x10E9/L 01/18/2018 11:25 AM CDT [facility] Eosinophils Absolute 0.25 0 - 0.47 x10E9/L 01/18/2018 11:25 AM CDT [facility] Basophils Absolute 0.08 0 - 0.08 x10E9/L 01/18/2018 11:25 AM CDT [facility] Immature Granulocytes Absolute 0.06 0.00 - 0.06 x10E9/L 01/18/2018 11:25 AM CDT [facility] nRBC Auto 0 /100 WBC 01/18/2018 11:25 AM CDT [facility] Blood BLOOD SPECIMEN / Unknown Venipuncture / Unknown 01/18/2018 8:27 AM CDT 01/18/2018 11:21 AM CDT Toño Johnston MD LAB - HEMATOLOGY ORD ERABLES [facility] [address] [place] [address] * (ABNORMAL) COMPREHENSIVE METABOLIC PANEL (01/18/2018 8:27 AM CDT) [facility] Glucose 97 74 - 106 mg/dL 01/18/2018 11:40 AM CDT [facility] Sodium 137 136 - 145 mmol/L 01/18/2018 11:40 AM CDT [facility] Potassium 4.5 3.5 - 5.1 mmol/L 01/18/2018 11:40 AM CDT [facility] Chloride 103 98 - 107 mmol/L 01/18/2018 11:40 AM CDT [facility] CO2 28 22 - 31 mmol/L 01/18/2018 11:40 AM CDT [facility] Calcium 10.7(H) 8.5 - 10.1 mg/dL 01/18/2018 11:40 AM CDT [facility] Anion Gap 6(L) 8 - 16 mmol/L 01/18/2018 11:40 AM CDT [facility] BUN 21 7 - 21 mg/dL 01/18/2018 11:40 AM CDT [facility] Creatinine 1.00 0.50 - 1.30 mg/dL 01/18/2018 11:40 AM CDT [facility] Alkaline Phosphatase 57 38 - 126 U/L 01/18/2018 11:40 AM CDT [facility] ALT 37 13 - 61 U/L 01/18/2018 11:40 AM CDT [facility] AST 18 5 - 40 U/L 01/18/2018 11:40 AM CDT [facility] Protein Total 7.5 6.4 - 8.2 gm/dL 01/18/2018 11:40 AM CDT [facility] Albumin 4.0 3.4 - 5.0 gm/dL 01/18/2018 11:40 AM CDT [facility] Bilirubin Total 0.6 0.2 - 1.0 mg/dL 01/18/2018 11:40 AM CDT [facility] eGFR by MDRD 56(L) >60 mL/min/1.7 3m2 01/18/2018 11:40 AM CDT [facility] eGFR by MDRD >60 >60 mL/min/1.7 3m2 01/18/2018 11:40 AM CDT [facility] Blood BLOOD SPECIMEN / Unknown Venipuncture / Unknown 01/18/2018 8:27 AM CDT 01/18/2018 11:21 AM CDT Toño Johnston MD LAB - CHEMISTRY MORA Velasquez Organization Address City/State/ZIP Co de Phone Number [facility] [address] [place] [address] * EKG 12-LEAD (01/18/2018 8:16 AM CDT) Ventricular Rate 58 BPM [facility] Atrial Rate 58 BPM [facility] P-R Interval 208 ms [facility] QRS Duration ms 102 ms [facility] Q-T Interval ms 414 ms [facility] QTC Calculation (Bezet) 406 ms [facility] Calculated P [place] 0 degrees [facility] Calculated R [place] -14 degrees [facility] Calculated T [place] 49 degrees [facility] Interpretation EKG Sinus bradycardia Otherwise normal ECG No previous ECGs available Confirmed by MARY RODRIGUEZ, TRENT ([id number]) on 01/19/2018 9:04:24 AM [facility] 01/18/2018 8:16 AM CDT 01/19/2018 9:04 AM CDT Toño Johnston MD ECG ORDERABLES [facility] Care Teams Manager Psychiatry Relationship Specialty Start Date End Date Brittany Elias MD [address] [place] [address] [address] [place] [phone] PCP - General 05/26/19 [place] [address] [place] [address] Orthopedic Surgery 06/06/14
--- OUTSIDE RECORDS SUMMARY | 2024-06-17 00:31 | XMS_ITS | Referral Summary ---
Author Organization [facility] Address [address] [place] [address] Care Team Providers Care Cattle Knocker Name Role Phone Fabiola Melo MD Unavailable [phone] Brittany Elias MD Primary Care Provider Source Comments [facility],non-owned Affiliates and Associated Physician Practices is amultiple site organization consisting of ambulatory clinics and hospital sitesin [place], [place], [place] and [place]. This disclosure is being madepursuant to the Care Everywhere program and may not contain all information available regarding this patient. Last updated 18.[facility] Allergies Active Allergy Reactions Criticality Noted Date Comments Sulfa Drugs 06/06/2014 Medications * Be aware that medications may not be up to date on this document. Alwaysverify current medications with the patient. Medication Sig Dispensed Refills Start Date End Date Status triamterene-hydroc hlorothiazide (DYAZIDE) 37.5-25 MG capsule Take 1 Cap by mouth once daily. Active LOSARTAN POTASSIUM PO Take 100 mg by mouth once daily Active Multiple Vitamin (STRESS B PO) Take by mouth. Active Omeprazole (PRILOSEC PO) Take 20 mg by mouth once daily as needed Active simvastatin (ZOCOR) 20 MG tablet Take 20 mg by mouth at bedtime Active fluticasone propionate (FLONASE) 50 MCG/ACT nasal spray [place] 2 sprays into each nostril nightly as needed Active SUMAtriptan (IMITREX) 25 MG tablet Take 25 mg by mouth daily as needed - may repeat one time for Migraine Maximum daily dose: 200 mg/24 hours Active metoprolol succinate XL 24hr (TOPROL XL) 50 MG tablet Take 0.5 tablets by mouth once daily 02/14/2018 Active amoxicillin (AMOXIL) 500 MG capsule Take 4 capsules by mouth pre-Procedure once for 1 dose Take 4 pills 1hr prior to dental appointment 12 capsule 1 04/12/2018 Active celecoxib (CELEBREX) 200 MG capsule TAKE 1 CAPSULE BY MOUTH TWICE A DAY 180 capsule 3 08/23/2018 Active aspirin (ASPIRIN) 81 MG tablet Take 1 tablet by mouth once daily Active doxycycline hyclate (VIBRAMYCIN) 50 MG capsule Take 1 capsule by mouth once daily Active omeprazole (PRILOSEC) 40 MG capsule Take 1 capsule by mouth once daily Active raNITIdine (ZANTAC) 150 MG tablet Take 150 mg by mouth 2 times daily 1 01/08/2019 Active Active Problems Problem Noted Date Diagnosed Date Primary osteoarthritis of right knee 03/01/2019 Status post left knee replacement 02/11/2018 Primary osteoarthritis of both knees 12/22/2017 Immunizations Name Administration Dates Next Due INFLUENZA VACCINE, QUADR. (F LUZONE; FLULAVAL; FLUARIX; AFLURIA QUADRIVALENT; 6MO+), 0.5 ML (IIV4) 02/12/2018 Social History Tobacco Use Types Packs/Day Years [...] Mass Index 41.1 02/28/2019 11:22 AM CDT Functional Status Functional Status Response Date of Assess ment Is person deaf or have serious hearing difficult y? No 02/11/2018 Is person blind or have serious difficulty seein g? No 02/11/2018 Does person have serious dif ficulty walking/climbing stairs? No 02/11/2018 Does person have difficulty dressing/bathing? No 02/11/2018 Does person have difficulty doing errands alone? No 02/11/2018 Cognitive Status Response Date of Assessm ent Does person have difficulty concentrating/remembering/making decisions? No 02/11/2018 Plan of Treatment Not on file Medical Devices Implanted Type Area Ui Ux Engineer Device Identifier Shelf Expiration Date Model / Serial / Lot Cmnt Bone Cblt 40gm Hvisc Strl Implanted:Qty: 1 on 02/11/2018 by Toño Johnston MD at [facility] Left: Knee [employer] 02/21/2019 600-15-000 / / [id number] Cmpnt Ptlr 28mm 1 Pg Wire Ascnt Arcm Kn Implanted:Qty: 1 on 02/11/2018 by Toño Johnston MD at [facility] Left: Knee [employer] 01/29/2023 [id number] / / [id number] Tray Tib 71mm Kn Cocr I Beam Implanted:Qty: 1 on 02/11/2018 by Toño Johnston MD at [facility] Left: Knee [employer] 12/02/2027 [id number] / / [id number] Cmpnt Fem Kn Lt Cr Cmnt Prm Vngrd Intlk Implanted:Qty: 1 on 02/11/2018 by Toño Johnston MD at [facility] Left: Knee [employer] 10/21/2027 [id number] / / [id number] Brng [id number] Vngrd Arcm Kn Ant Stab Implanted:Qty: 1 on 02/11/2018 by Toño Johnston MD at [facility] Left: Knee [employer] 12/22/2022 [id number] / / [id number] Procedures Procedure Name Priority Date/Time Associated Diagnosis Comments COMPREHENSIVE METABOLIC PANEL Routine 01/18/2018 8:27 AM CDT Preop examination from Last 3 Months or Most Recently Relevant to Health Maintenance Results * (ABNORMAL) COMPREHENSIVE METABOLIC PANEL (01/18/2018 8:27 AM CDT) [facility] Glucose 97 74 - 106 mg/dL 01/18/2018 11:40 AM CDT [facility] Sodium 137 136 - 145 mmol/L 01/18/2018 11:40 AM CDT [facility] Potassium 4.5 3.5 - 5.1 mmol/L 01/18/2018 11:40 AM CDT [facility] Chloride 103 98 - 107 mmol/L 01/18/2018 11:40 AM CDT [facility] CO2 28 22 - 31 mmol/L 01/18/2018 11:40 AM CDT [facility] Calcium 10.7(H) 8.5 - 10.1 mg/dL 01/18/2018 11:40 AM CDT [facility] Anion Gap 6(L) 8 - 16 mmol/L 01/18/2018 11:40 AM CDT [facility] BUN 21 7 - 21 mg/dL 01/18/2018 11:40 AM CDT [facility] Creatinine 1.00 0.50 - 1.30 mg/dL 01/18/2018 11:40 AM CDT [facility] Alkaline Phosphatase 57 38 - 126 U/L 01/18/2018 11:40 AM CDT [facility] ALT 37 13 - 61 U/L 01/18/2018 11:40 AM CDT [facility] AST 18 5 - 40 U/L 01/18/2018 11:40 AM CDT [facility] Protein Total 7.5 6.4 - 8.2 gm/dL 01/18/2018 11:40 AM CDT [facility] Albumin 4.0 3.4 - 5.0 gm/dL 01/18/2018 11:40 AM CDT [facility] Bilirubin Total 0.6 0.2 - 1.0 mg/dL 01/18/2018 11:40 AM CDT [facility] eGFR by MDRD 56(L) >60 mL/min/1.7 3m2 01/18/2018 11:40 AM CDT [facility] eGFR by MDRD >60 >60 mL/min/1.7 3m2 01/18/2018 11:40 AM CDT [facility] Blood BLOOD SPECIMEN / Unknown Venipuncture / Unknown 01/18/2018 8:27 AM CDT 01/18/2018 11:21 AM CDT Toño Johnston MD LAB - CHEMISTRY [place] PERRIN [facility] Organization Address City/State/ZIP Co de Phone Number [facility] [address] [place] [address] from Last 3 Months or Most Recently Relevant to Health Maintenance Administered Medications Advance Directives * Full Code (Latest Code Status on File) Date Activated Date Inactivated Comments 02/11/2018 11:11 AM 02/14/2018 1:10 PM Care Teams Cattle Knocker Relationship Specialty Start Date End Date Brittany Elias MD [address] [place] [phone] PCP - General 05/26/19 [place] [id number] [address] Orthopedic Surgery 06/06/14
--- OUTSIDE RECORDS SUMMARY | 2024-06-17 00:31 | XMS_ITS | Clinical Summary ---
Author Organization [facility] Address [address] [place] [address] Care Team Providers Care Sql Report Writer Name Role Phone Fabiola Melo MD Unavailable [phone] Brittany Elias MD Primary Care Provider Source Comments [facility],non-owned Affiliates and Associated Physician Practices is amultiple site organization consisting of ambulatory clinics and hospital sitesin [place], [place], [place] and [place]. This disclosure is being madepursuant to the Care Everywhere program and may not contain all information available regarding this patient. Last updated 18.[facility] [employer] Allergies Active Allergy Reactions Criticality Noted Date [...] fluticasone propionate (FLONASE) 50 MCG/ACT nasal spray [place] 2 sprays into each nostril nightly as [...] Mass Index 41.1 02/28/2019 11:22 AM CDT Plan of Treatment Health Maintenance Due Date Last Done Comments BONE DENSITY TESTING 1955 COLOGUARD (AGES 45-75) - COLON CA SCREENING 1954 COLON MONITORING 1954 COLONOSCOPY - COLON CA SCREENING 1954 CT COLONOGRAPHY - COLON CA SCREENING 1954 Colorectal Cancer Screening 1954 FIT - COLON CA SCREENING 1954 FLEX SIG - COLON CA SCREENING 1954 MAMMOGRAM 1954 HEPATITIS C SCREENING 11/05/1972 DTAP/TDAP/TD VACCINES (1 - Tdap) 1973 PNEUMOCOCCAL VACCINE 50+ (1 of 1 - PCV) 2004 ZOSTER VACCINE (1 of 2) 2004 Respiratory Syncytial Virus (RSV) Vaccine Pt: or over 60 yrs (1 - Risk 60-74 years 1-dose series) 2014 SCREENING FOR DIABETES 01/18/2021 01/18/2018 COVID-19 VACCINE ( - season) 2024 INFLUENZA VACCINE (#1) 2024 8, 04/28/2016, 02/23/2015, Additional history exists DEPRESSION SCREENING 05/25/2024 HEPATITIS B VACCINE Aged Out No longe r eligible based on patient's age to complete this topic HIB VACCINE Aged Out No longer eligi ble based on patient's age to complete this topic HPV VACCINE Aged Out No longer eligi ble based on patient's age to complete this topic MENINGOCOCCAL (Group B) VACCINE Aged Out No longer eligible based on patient's age to complete this topic MENINGOCOCCAL VACCINE Aged Out No kristy teodoro eligible based on patient's age to complete this topic Medical Devices Implanted Type Area Log Roper Device Identifier Shelf Expiration Date Model / Serial / Lot Cmnt Bone Cblt 40gm Hvisc Strl Implanted:Qty: 1 on 02/11/2018 by Toño Johnston MD at [facility] Left: Knee [employer] Orthopedics 02/21/2019 600-15-000 / / [id number] Cmpnt Ptlr 28mm 1 Pg Wire Ascnt Arcm Kn Implanted:Qty: 1 on 02/11/2018 by Toño Johnston MD at [facility] Left: Knee [employer] 01/29/2023 [id number] / / [id number] Tray Tib 71mm Kn Cocr I Beam Implanted:Qty: 1 on 02/11/2018 by Toño Johnston MD at [facility] Left: Knee [employer] 12/02/2027 [id number] / / [id number] Cmpnt Fem Kn Lt Cr Cmnt Prm Vngrd Intlk Implanted:Qty: 1 on 02/11/2018 by Toño Johnston MD at [facility] Left: Knee [employer] 10/21/2027 [id number] / / [id number] Brng [id number] Vngrd Arcm Kn Ant Stab Implanted:Qty: 1 on 02/11/2018 by Toño Johnston MD at [facility] Left: Knee [employer] 12/22/2022 [id number] / / [id number] Procedures Procedure Name Priority Date/Time Associated Diagnosis Comments COMPREHENSIVE METABOLIC PANEL Routine 01/18/2018 8:27 AM CDT Preop examination from Last 3 Months or Most Recently Relevant to Health Maintenance Results * (ABNORMAL) COMPREHENSIVE METABOLIC PANEL (01/18/2018 8:27 AM CDT) Glucose 97 74 - 106 mg/dL 01/18/2018 11:40 AM CDT [facility] Sodium 137 136 - 145 mmol/L 01/18/2018 11:40 AM CDT [facility] Potassium 4.5 3.5 - 5.1 mmol/L 01/18/2018 11:40 AM CDT [facility] Chloride 103 98 - 107 mmol/L 01/18/2018 11:40 AM CDT [facility] CO2 28 22 - 31 mmol/L 01/18/2018 11:40 AM CDT [facility] Calcium 10.7(H) 8.5 - 10.1 mg/dL 01/18/2018 11:40 AM CDT [facility] Anion Gap 6(L) 8 - 16 mmol/L 01/18/2018 11:40 AM CDT [facility] BUN 21 7 - 21 mg/dL 01/18/2018 11:40 AM CDT [facility] Creatinine 1.00 0.50 - 1.30 mg/dL 01/18/2018 11:40 AM CDT [facility] Alkaline Phosphatase 57 38 - 126 U/L 01/18/2018 11:40 AM CDT [facility] ALT 37 13 - 61 U/L 01/18/2018 11:40 AM CDT [facility] AST 18 5 - 40 U/L 01/18/2018 11:40 AM CDT [facility] Protein Total 7.5 6.4 - 8.2 gm/dL 01/18/2018 11:40 AM CDT [facility] Albumin 4.0 3.4 - 5.0 gm/dL 01/18/2018 11:40 AM CDT [facility] Bilirubin Total 0.6 0.2 - 1.0 mg/dL 01/18/2018 11:40 AM CDT [facility] eGFR by MDRD 56(L) >60 mL/min/1.7 3m2 01/18/2018 11:40 AM CDT [facility] eGFR by MDRD >60 >60 mL/min/1.7 3m2 01/18/2018 11:40 AM CDT [facility] Blood BLOOD SPECIMEN / Unknown Venipuncture / Unknown 01/18/2018 8:27 AM CDT 01/18/2018 11:21 AM CDT Toño Johnston MD LAB - CHEMISTRY MORA PERRIN [facility] Organization Address City/State/ZIP Co de Phone Number [facility] [address] [place] [address] from Last 3 Months or Most Recently Relevant to Health Maintenance Advance Directives * Full Code (Latest Code Status on File) Date Activated Date Inactivated Comments 02/11/2018 11:11 AM 02/14/2018 1:10 PM Care Teams Sql Report Writer Relationship Specialty Start Date End Date Brittany Elias MD [address] [place] [phone] PCP - General 05/26/19 [place] [address] [facility] [address] [place] [id number] Orthopedic Surgery 06/06/14
--- OUTSIDE RECORDS SUMMARY | 2024-06-17 00:31 | XMS_ITS | Clinical Summary ---
Author Organization [facility] Address [address] [place] [address] Phone Care Team Providers Care Edge Setter Name Role Phone Daly Pinto WINEMAKER, NURSE CONSULTANT Primary Care Pro vider Medications Aspirin 81 MG Tablet Take 1 Tab by mouth. Active doxycycline hyclate (VIBRAMYCIN) 50 MG Capsule doxycycline hyclate 50 mg capsule Active fluticasone (FLONASE) 50 MCG/ACT Suspension USE 2 SPRAYS IN EACH NOSTRIL AT BEDTIME 5 9 Active losartan (COZAAR) 100 MG Tablet losartan 100 mg tablet Active triamterene-hyd rochlorothiazid e (DYAZIDE) 37.5-25 MG Capsule triamterene 37.5 mg-hydrochloroth iazide 25 mg capsule Active Family History Medical History Relation Name Comments Cerebral Anuerysm Father Hypertension Mother Breast Cancer Paternal Aunt Relation Name Status Comments Father Mother Paternal Aunt Social History Tobacco Use Types Packs/Day Years Used Date Smoking Tobacco: Former Smokeless Tobacco: Never Alcohol Use Standard Drinks/Week Comments Not Currently 0 (1 standard drink = 0.6 oz pur e alcohol) Comments Unknown Sex and Gender Information Value Date Recorded Sex Assigned at Not on file Legal Sex Female 10:10 PM CDT Gender Identity Not on file Sexual Orientation Not on file Last Filed Vital Signs Vital Sign Reading Time Taken Comments Blood Pressure 130/86 04/08/2019 8:56 AM NETWORK OPERATIONS MANAGER Pulse 70 04/08/2019 8:56 AM NETWORK OPERATIONS MANAGER Temperature - - Respiratory Rate - - Oxygen Saturation 98% 04/08/2019 8:56 AM NETWORK OPERATIONS MANAGER Inhaled Oxygen Concentration - - Weight 108 kg (238 lb) 04/08/2019 8:56 AM NETWORK OPERATIONS MANAGER Height 160 cm (5' 3 ) 04/08/2019 8:56 AM NETWORK OPERATIONS MANAGER Body Mass Index 42.16 04/08/2019 8:56 AM NETWORK OPERATIONS MANAGER Plan of Treatment Health Maintenance Due Date Last Done Comments DEXA Bone Density 1955 Hepatitis C Virus (HCV) Screening 1954 Cologuard 2004 Immunochemical Fecal Occult Blood 2004 Mammogram 2004 Pneumococcal Immunization (50+ years) (1 of 1 - PCV) 2004 Zoster Immunization (2 of 3) 04/19/2015 02/22/2015 Influenza Immunization (#1) 01/24/202401/24, 04/28/2016, 02/22/2015, Additional history exists SARS-COV-2 Immunization (1 - season) 2024 Colonoscopy 05/12/2026 05/12/2019 Colorectal Cancer Screening 05/12/2026 Respiratory Syncytial Virus (RSV) Immunization (Adult) (1 - 1-dose 75+ series) 2029 05/12/2019 DTaP/Tdap/Td Immunization Discontinued 09/22/2017 TdaP Immunization Completed 09/22/2017 Hepatitis B Immunization Aged Out No longer eligible based on patient's age to complete this topic Meningococcal Immunization (ACWY) Aged Out No longer eligible based on patient's age to complete this topic Rotavirus Immunization Aged Out No lo nger eligible based on patient's age to complete this topic Procedures Procedure Name Priority Date/Time Associated Diagnosis Comments COLONOSCOPY Routine 05/12/2019 from Last 3 Months or Most Recently Relevant to Health Maintenance Results * COLONOSCOPY (05/12/2019) us Marcio Shin DO PROCEDURE/MINOR SURGICAL ORDERA BLES Final Result from Last 3 Months or Most Recently Relevant to Health Maintenance Insurance [facility] Care Teams Edge Setter Relationship Specialty Start Date End Date Daly Pinto APRN, NURSE CONSULTANT [address] [place] [address] PCP - General Certified Nurse Practitioner 11/02/18
--- OUTSIDE RECORDS SUMMARY | 2024-06-17 00:32 | XMS_ITS | Continuity of Care Document ---
Author Organization [facility] Address [address] [place] [address] Phone Care Team Providers Care Facility Technician Name Role Phone Tomas Clayton Unavailable Unavailable Procedures Procedure Date Eye Exam Established Pt Ophthalmoscopy, Subsequent Office Consultation Ophthalmoscopy Advance Directives Directive Yes / No Effective Date File Name No Information Encounters Encounter Description Practice Location Reason(s) For Visit Diagnoses Date Provider Providers Copied on Encounter [facility], [id number] [place] [address] [address], [place], [place], [id number], tel:[phone] [facility] No Information [address] [place], [place], [facility], . [phone] Referring Provider: Tomas Berg, [address] [place], [place], [facility]. tel:[phone] [facility], [address] [place] [address] [address], [place], [place], [id number], tel:[phone] [facility] No Information [address] [place], [place], [facility], [place]. tel:[phone] Referring Provider: Marcio Lagunas, [address], [place], [place], [facility]. tel:[phone] Family History Family Member Type Diagnosis Age At Onset No Information Payers Payer name Insurance type Covered green party ID Authoriza tion(s) No Information Social [...]
--- OUTSIDE RECORDS SUMMARY | 2024-06-17 00:32 | XMS_ITS | Clinical Summary ---
Author Organization [facility] Address [address] [place] [address] Phone Care Team Providers Care Traffic Control Supervisor Name Role Phone Daly Pinto NP Primary Care Provider [phone] Allergies Active Allergy Reactions Criticality Noted Date Comments Sulfa Antibiotics Nausea Only Medications Medication Sig Dispensed Refills Start Date End Date Status aspirin (ST KORY) 81 MG EC tablet daily. Active losartan (COZAAR) 100 MG tablet losartan 100 mg tablet TAKE 1 TABLET BY MOUTH EVERY DAY Active simvastatin (ZOCOR) 20 MG tablet simvastatin 20 mg tablet TAKE 1 TABLET EVERY EVENING Active triamterene-hydroCHL OROthiazide (DYAZIDE) 37.5-25 MG per capsule triamterene 37.5 mg-hydrochlorothiazi de 25 mg capsule TAKE 1 CAPSULE BY MOUTH EVERY DAY Active doxycycline (VIBRAMYCIN) 50 MG capsule Take 50 mg by mouth 2 (two) times a day. Active traMADol (ULTRAM) 50 MG tablet tramadol 50 mg tablet TAKE 1 TABLET BY MOUTH EVERY 6 HOURS NEEDED FOR PAIN 03/23/2018 Active fluticasone (FLONASE) 50 MCG/ACT nasal spray USE 2 SPRAYS IN EACH NOSTRIL AT BEDTIME 5 11/16/2018 Active ALPRAZolam (XANAX) 0.25 MG tablet alprazolam 0.25 mg tablet TAKE 1 TABLET 3 TIMES A DAY NEEDED Active celecoxib (CeleBREX) 200 MG capsule celecoxib 200 mg capsule 08/23/2018 Active HYDROcodone-acetamin ophen (VICODIN) 5-300 MG per tablet hydrocodone 5 mg-acetaminophen 300 mg tablet TAKE 1 TO 2 TABLETS EVERY 6 HOURS NEEDED FOR PAIN Active omeprazole (PriLOSEC) [address] capsule omeprazole 40 mg capsule,delayed release Active SUMAtriptan (IMITREX) 25 MG tablet sumatriptan 25 mg tablet Active raNITIdine (ZANTAC) 150 MG tablet Take 150 mg by mouth 2 (two) times a day 04/07/2019 Active famotidine (PEPCID) 20 MG tablet TAKE 1 TABLET BY MOUTH EVERY DAY (THIS REPLACES RANITIDINE) 09/30/2019 Active Active Problems Problem Noted Date Diagnosed Date Gastroesophageal reflux disease 11/24/2019 Anxiety 10/31/2018 Depressive disorder 10/31/2018 Essential hypertension 10/31/2018 Sleep apnea 10/31/2018 Acid reflux 07/20/2018 Hyperglycemia 04/01/2017 Hyperlipidemia 04/01/2017 Migraine without aura 09/11/2016 Primary osteoarthritis of right knee 09/11/2016 Varicose veins of lower extremity 09/11/2016 Immunizations Name Administration Dates Next Due Influenza (IM) Preservative Free 03/24/2014 Influenza Recombinant Freda valent Injectable Preservative Free 02/22/2019 Influenza TIV (IM) 02/23/2015 Influenza, Injectable, Quadrivalent 02/12/2018 Influenza, Injectable, Quadrivalent, Preservativ e Free 02/12/2018,04/28/2016 Tdap 09/22/2017 Zoster 02/23/2015 Family History Medical History Relation Comments Brain cancer Father Congestive heart failure Mother Relation Status Comments Father Mother Social History Tobacco Use Types Packs/Day Years Used Date Smoking Tobacco: Former Cigarettes Q uit: 2009 Smokeless Tobacco: Never Alcohol Use Standard Drinks/Week Comments No 0 (1 standard drink = 0.6 oz pur e alcohol) AUDIT-C Answer Date Recorded Frequency of Alcohol Consumption Never 10/31/2018 Average Number of Drinks Not on file 019 Frequency of Binge Drinking Not on file 01/2019 Sex and Gender Information Value Date Recorded Sex Assigned at Not on file Gender Identity Not on file Sexual Orientation Not on file Last Filed Vital Signs Vital Sign Reading Time Taken Comments Blood Pressure 136/78 12/07/2019 10:56 AM CDT Pulse - - Temperature 36.5 ??C (97.7 ??F) 12/07/2019 10:56 AM C DT Respiratory Rate 18 12/07/2019 10:56 AM CDT Oxygen Saturation - - Inhaled Oxygen Concentration - - Weight 112 kg (247 lb) 12/07/2019 10:56 AM CDT Height 160 cm (5' 3 ) 12/07/2019 10:56 AM CDT Body Mass Index 43.75 12/07/2019 10:56 AM CDT Plan of Treatment Health Maintenance Due Date Last Done Comments Pneumococcal PPSV23/PCV13 65 + Years / Low and Medium Risk (1 of 4 - PCV) 11/11/2019 Influenza Vaccine (#1) 2024 9, 02/12/2018, 04/28/2016, Additional history exists Care Teams Traffic Control Supervisor Relationship Specialty Start Date End Date Daly Pinto NP [address] [phone] PCP - General Family Medicine 10/19/18
--- OUTSIDE RECORDS SUMMARY | 2024-06-17 00:58 | XMS_ITS | Clinical Summary ---
Author Organization [facility] Address [address] [place] [address] Care Team Providers Care Photographer'S Model Name Role Phone Fabiola Melo MD Unavailable [phone] Brittany Elias MD Primary Care Provider Source Comments [facility],non-owned Affiliates and Associated Physician Practices is amultiple site organization consisting of ambulatory clinics and hospital sitesin [place], [place], [place] and [place]. This disclosure is being madepursuant to the Care Everywhere program and may not contain all information available regarding this patient. Last updated 18.[facility] [employer] Allergies Active Allergy Reactions Criticality Noted Date [...] fluticasone propionate (FLONASE) 50 MCG/ACT nasal spray [place] 2 sprays into each nostril nightly as [...] this topic MENINGOCOCCAL VACCINE Aged Out No rkisty teodoro eligible based on patient's age to complete this topic Medical Devices Implanted Type Area Tele Grout Sewer Line Repairer Device Identifier Shelf Expiration Date Model / Serial / Lot Cmnt Bone Cblt 40gm Hvisc Strl Implanted:Qty: 1 on 02/11/2018 by Toño Johnston MD at [facility] Left: Knee [employer] Orthoped[employer] 02/21/2019 600-15-000 / / [id number] Cmpnt Ptlr 28mm 1 Pg Wire Ascnt Arcm Kn Implanted:Qty: 1 on 02/11/2018 by Toño Johnston MD at [facility] Left: Knee [employer] 01/29/2023 [id number] / / [id number] Tray Tib 71mm Kn Cocr I Beam Implanted:Qty: 1 on 02/11/2018 by Toño Johnston MD at [facility] Left: Knee [employer] 12/02/2027 [id number] / / [id number] Cmpnt Fem Kn Lt Cr Cmnt Prm Vngrd Intlk Implanted:Qty: 1 on 02/11/2018 by Toño Johnston MD at [facility] Left: Knee [employer] 10/21/2027 [id number] / / [id number] Brng [id number] Vngrd Arcm Kn Ant Stab Implanted:Qty: 1 on 02/11/2018 by Toño Johnston MD at [facility] Left: Knee [employer] 12/22/2022 [id number] / / [id number] Procedures Procedure Name Priority Date/Time Associated Diagnosis [...] Johnston MD LAB - CHEMISTRY MORA PERRIN [facility] Organization Address City/State/ZIP Co de Phone Number [facility] [address] [place] [address] from Last 3 Months or Most Recently Relevant to Health Maintenance Advance Directives * Full Code (Latest Code Status on File) Date Activated Date Inactivated Comments 02/11/2018 11:11 AM 02/14/2018 1:10 PM Care Teams Photographer'S Model Relationship Specialty Start Date End Date Brittany Elias MD [address] [place] [phone] PCP - General 05/26/19 [place] [address] [facility] [address] [place] [address] Orthopedic Surgery 06/06/14
--- OUTSIDE RECORDS SUMMARY | 2024-06-17 00:58 | XMS_ITS | Referral Summary ---
Author Organization [facility] Address [address] [place] [address] Care Team Providers Care Ingredient Handler Name Role Phone Fabiola Melo MD Unavailable [phone] Brittany Elias MD Primary Care Provider [phone] Source Comments [facility],non-owned Affiliates and Associated Physician Practices is amultiple site organization consisting of ambulatory clinics and hospital sitesin [place], [place], [place] and [place]. This disclosure is being madepursuant to the Care Everywhere program and may not contain all information available regarding this patient. Last updated 18.[facility] Allergies Active Allergy Reactions Criticality Noted Date [...] fluticasone propionate (FLONASE) 50 MCG/ACT nasal spray [place] 2 sprays into each nostril nightly as [...] on file Medical Devices Implanted Type Area Nursing Educator Device Identifier Shelf Expiration Date Model / Serial / Lot Cmnt Bone Cblt 40gm Hvisc Strl Implanted:Qty: 1 on 02/11/2018 by Toño Johnston MD at [facility] Left: Knee [employer] Orthoped[employer] 02/21/2019 600-15-000 / / [id number] Cmpnt Ptlr 28mm 1 Pg Wire Ascnt Arcm Kn Implanted:Qty: 1 on 02/11/2018 by Toño Johnston MD at [facility] Left: Knee [employer] 01/29/2023 [id number] / / [id number] Tray Tib 71mm Kn Cocr I Beam Implanted:Qty: 1 on 02/11/2018 by Toño Johnston MD at [facility] Left: Knee [employer] 12/02/2027 [id number] / / [id number] Cmpnt Fem Kn Lt Cr Cmnt Prm Vngrd Intlk Implanted:Qty: 1 on 02/11/2018 by Toño Johnston MD at [facility] Left: Knee [employer] 10/21/2027 [id number] / / [id number] Brng [id number] Vngrd Arcm Kn Ant Stab Implanted:Qty: 1 on 02/11/2018 by Toño Johnston MD at [facility] Left: Knee [employer] 12/22/2022 [id number] / / [id number] Procedures Procedure Name Priority Date/Time Associated Diagnosis Comments COMPREHENSIVE METABOLIC PANEL Routine 01/18/2018 8:27 AM CDT Preop examination from Last 3 Months or Most Recently Relevant to Health Maintenance Results * (ABNORMAL) COMPREHENSIVE METABOLIC PANEL (01/18/2018 8:27 AM CDT) [facility] Glucose 97 74 - 106 mg/dL 01/18/2018 11:40 AM CDT [facility] Sodium 137 136 - 145 mmol/L 01/18/2018 11:40 AM CDT [facility] Potassium 4.5 3.5 - 5.1 mmol/L 01/18/2018 11:40 AM CDT [facility] Chloride 103 98 - 107 mmol/L 01/18/2018 11:40 AM CDT [facility] CO2 28 22 - 31 mmol/L 01/18/2018 11:40 AM CDT [facility] Calcium 10.7(H) 8.5 - 10.1 mg/dL 01/18/2018 11:40 AM CDT [facility] Anion Gap 6(L) 8 - 16 mmol/L 01/18/2018 11:40 AM CDT [facility] BUN 21 7 - 21 mg/dL 01/18/2018 11:40 AM CDT [facility] Creatinine 1.00 0.50 - 1.30 mg/dL 01/18/2018 11:40 AM CDT [facility] Alkaline Phosphatase 57 38 - 126 U/L 01/18/2018 11:40 AM CDT [facility] ALT 37 13 - 61 U/L 01/18/2018 11:40 AM CDT [facility] AST 18 5 - 40 U/L 01/18/2018 11:40 AM CDT [facility] Protein Total 7.5 6.4 - 8.2 gm/dL 01/18/2018 11:40 AM CDT [facility] Albumin 4.0 3.4 - 5.0 gm/dL 01/18/2018 11:40 AM CDT [facility] Bilirubin Total 0.6 0.2 - 1.0 mg/dL 01/18/2018 11:40 AM CDT [facility] eGFR by MDRD 56(L) >60 mL/min/1.7 3m2 01/18/2018 11:40 AM CDT [facility] eGFR by MDRD >60 >60 mL/min/1.7 3m2 01/18/2018 11:40 AM CDT [facility] Blood BLOOD SPECIMEN / Unknown Venipuncture / Unknown 01/18/2018 8:27 AM CDT 01/18/2018 11:21 AM CDT Toño Johnston MD LAB - CHEMISTRY MORA PERRIN [facility] Organization Address City/State/ZIP Co de Phone Number [facility] [address] [place] [address] from Last 3 Months or Most Recently Relevant to Health Maintenance Administered Medications Advance Directives * Full Code (Latest Code Status on File) Date Activated Date Inactivated Comments 02/11/2018 11:11 AM 02/14/2018 1:10 PM Care Teams Ingredient Handler Relationship Specialty Start Date End Date Brittany Elias MD [address] [place] [phone] PCP - General 05/26/19 [place] [address] [address] Orthopedic Surgery 06/06/14
--- OUTSIDE RECORDS SUMMARY | 2024-06-17 00:58 | XMS_ITS | Clinical Summary ---
Author Organization [facility] Address [address] [place] [address] Phone Care Team Providers Care Commercial Pest Control Representative Name Role Phone Daly Pinto TIRE ROOM SUPERVISOR, HELP DESK CONSULTANT Primary Care Pro vider Medications Aspirin [...] Comments Blood Pressure 130/86 04/08/2019 8:56 AM CREDIT PORTFOLIO MANAGER Pulse 70 04/08/2019 8:56 AM CREDIT PORTFOLIO MANAGER Temperature - - Respiratory Rate - - Oxygen Saturation 98% 04/08/2019 8:56 AM CREDIT PORTFOLIO MANAGER Inhaled Oxygen Concentration - - Weight 108 kg (238 lb) 04/08/2019 8:56 AM CREDIT PORTFOLIO MANAGER Height 160 cm (5' 3 ) 04/08/2019 8:56 AM CREDIT PORTFOLIO MANAGER Body Mass Index 42.16 04/08/2019 8:56 AM CREDIT PORTFOLIO MANAGER Plan of Treatment Health Maintenance Due [...] Most Recently Relevant to Health Maintenance Insurance [facility] Care Teams Commercial Pest Control Representative Relationship Specialty Start Date End Date Daly Pinto APRN, HELP DESK CONSULTANT [address] [place] [address] PCP - General Certified Nurse Practitioner 11/02/18
--- OUTSIDE RECORDS SUMMARY | 2024-06-17 00:58 | XMS_ITS | Clinical Summary ---
Author Organization [facility] Address [address] [place] [address]. [place] [address] [place] [address] Care Team Providers Care Business Objects Developer Name Role Phone Unavailable Primary Care Provider [...]
--- OUTSIDE RECORDS SUMMARY | 2024-06-17 00:58 | XMS_ITS | Patient Health Summary ---
Author Organization [facility] Address [address] [place] [address] Care Team Providers Care Terminal Operations Manager Name Role Phone Fabiola Melo MD Unavailable [phone] Brittany Elias MD Primary Care Provider Note from [facility],non-owned Affiliates and Associated Physician Practices is amultiple site organization consisting of ambulatory clinics and hospital sitesin [place], [place], [place] and [place]. This disclosure is being madepursuant to the Care Everywhere program and may not contain all information available regarding this patient. Last updated 18.[facility] Allergies * Sulfa Drugs Medications * [...] fluticasone propionate (FLONASE) 50 MCG/ACT nasal spray [place] 2 sprays into each nostril nightly as [...] AM CDT Medical Devices Implanted Type Area Coffee Taster Device Identifier Shelf Expiration Date Model / Serial / Lot Cmnt Bone Cblt 40gm Hvisc Strl Implanted:Qty: 1 on 02/11/2018 by Toño Johnston MD at [facility] Left: Knee DJ Orthopedics 02/21/2019 600-15-000 / / [id number] Cmpnt Ptlr 28mm 1 Pg Wire Ascnt Arcm Kn Implanted:Qty: 1 on 02/11/2018 by Toño Johnston MD at [facility] Left: Knee [employer] 01/29/2023 [id number] / / [id number] Tray Tib 71mm Kn Cocr I Beam Implanted:Qty: 1 on 02/11/2018 by Toño Johnston MD at [facility] Left: Knee [employer] 12/02/2027 [id number] / / [id number] Cmpnt Fem Kn Lt Cr Cmnt Prm Vngrd Intlk Implanted:Qty: 1 on 02/11/2018 by Toño Johnston MD at [facility] Left: Knee [employer] 10/21/2027 [id number] / / [id number] Brng [id number] Vngrd Arcm Kn Ant Stab Implanted:Qty: 1 on 02/11/2018 by Toño Johnston MD at [facility] Left: Knee [employer] 12/22/2022 [id number] / / [id number] Procedures * XR KNEE BILAT 3VW(Performed 02/28/2019) [...] Computed Radiogr aphy Narrative 04/07/2018 12:19 PM CUSTOM BIKE BUILDER Santa Fuller, RT(R) ? 04/07/2018 12:19 PM [...] - HEMATOLOGY ORD ERABLES Performing Organization Address [facility] Co de Phone Number [facility] [address] [place] [address] * STREP A SCREEN DIRECT W RFLX STREP A CULTURE (02/13/2018 12:08 AM CDT) Strep A Rapid Negative Negative 02/13/2018 12:43 AM CDT [facility] Microbiology ENTIRE THROAT (SURFACE REGION OF NECK) / Unknown Collection / Unknown 02/13/2018 12:08 AM CDT 02/13/2018 12:21 AM CDT Narrative [facility] - 02/13/2018 12:43 AM CDT Test has reflexed to a Strep A culture. Luis Carlos [facility] - MICROBIO LOGY ORDERABLES Performing Organization Address [facility] Co de Phone Number [facility] [address] [place] [address] * CULTURE STREP GROUP A (02/13/2018 12:08 AM CDT) Culture Negative for beta-hemolytic Streptococcus Group A MARY BETH 02/15/2018 6:21 AM CDT [facility] MICROBIOLOGY Microbiology ENTIRE THROAT (SURFACE REGION OF NECK) / Unknown Collection / Unknown 02/13/2018 12:08 AM CDT 02/13/2018 12:21 AM CDT Luis Carlos Palmer [facility] - MICROBIO LOGY ORDERABLES Performing Organization Address City/[facility] Co de Phone Number [facility] MICROBIOLOGY [address] [place] [address], [facility] [phone] * CULTURE MSSA/MRSA (01/18/2018 8:27 AM CDT) Culture Negative for Staphylococcus aureus (MRSA/MSSA) MARY BETH 01/20/2018 1:25 PM CDT [facility] MICRO[facility]OLOGY Microbiology SPECIMEN FROM NASAL FOSSAE / Unknown Collection / Unknown 01/18/2018 8:27 AM CDT 01/18/2018 11:19 AM CDT Toño Johnston MD LAB - MICROBIOLOGY O RDERABLES [facility] MICROBIOLOGY [address] [place] [address], [facility] [phone] * CBC W AUTO DIFFERENTIAL (01/18/2018 8:27 [...] - 6.0 % 01/18/2018 11:25 AM CDT [facility] Basophils % 1.4 0.0 - 2.0 % 01/18/2018 11:25 AM CDT [facility] Immature Granulocytes 1.0 0 - 1 % 01/18/2018 11:25 AM CDT [facility] Neutrophil Absolute 2.91 2.01 - 7.14 x10E9/L 01/18/2018 11:25 AM CDT [facility] Lymphocytes Absolute 1.83 1.07 - 3.94 x10E9/L 01/18/2018 11:25 AM CDT [facility] Monocytes Absolute 0.69 0.26 - 1.07 x10E9/L 01/18/2018 11:25 AM CDT [facility] Eosinophils Absolute 0.25 0 - 0.47 x10E9/L 01/18/2018 11:25 AM CDT [facility] Basophils Absolute 0.08 0 - 0.08 x10E9/L 01/18/2018 11:25 AM CDT [facility] Immature Granulocytes Absolute 0.06 0.00 - 0.06 x10E9/L 01/18/2018 11:25 AM CDT [facility] nRBC Auto 0 /100 WBC 01/18/2018 11:25 AM CDT [facility] Blood BLOOD SPECIMEN / Unknown Venipuncture / Unknown 01/18/2018 8:27 AM CDT 01/18/2018 11:21 AM CDT Toño Johnston MD LAB - HEMATOLOGY ORD ERABLES [facility] [address] [place] [address] * (ABNORMAL) COMPREHENSIVE METABOLIC PANEL (01/18/2018 8:27 AM CDT) [facility] Glucose 97 74 - 106 mg/dL 01/18/2018 11:40 AM CDT [facility] Sodium 137 136 - 145 mmol/L 01/18/2018 11:40 AM CDT [facility] Potassium 4.5 3.5 - 5.1 mmol/L 01/18/2018 11:40 AM CDT [facility] Chloride 103 98 - 107 mmol/L 01/18/2018 11:40 AM CDT [facility] CO2 28 22 - 31 mmol/L 01/18/2018 11:40 AM CDT [facility] Calcium 10.7(H) 8.5 - 10.1 mg/dL 01/18/2018 11:40 AM CDT [facility] Anion Gap 6(L) 8 - 16 mmol/L 01/18/2018 11:40 AM CDT [facility] BUN 21 7 - 21 mg/dL 01/18/2018 11:40 AM CDT [facility] Creatinine 1.00 0.50 - 1.30 mg/dL 01/18/2018 11:40 AM CDT [facility] Alkaline Phosphatase 57 38 - 126 U/L 01/18/2018 11:40 AM CDT [facility] ALT 37 13 - 61 U/L 01/18/2018 11:40 AM CDT [facility] AST 18 5 - 40 U/L 01/18/2018 11:40 AM CDT [facility] Protein Total 7.5 6.4 - 8.2 gm/dL 01/18/2018 11:40 AM CDT [facility] Albumin 4.0 3.4 - 5.0 gm/dL 01/18/2018 11:40 AM CDT [facility] Bilirubin Total 0.6 0.2 - 1.0 mg/dL 01/18/2018 11:40 AM CDT [facility] eGFR by MDRD 56(L) >60 mL/min/1.7 3m2 01/18/2018 11:40 AM CDT [facility] eGFR by MDRD >60 >60 mL/min/1.7 3m2 01/18/2018 11:40 AM CDT [facility] Blood BLOOD SPECIMEN / Unknown Venipuncture / Unknown 01/18/2018 8:27 AM CDT 01/18/2018 11:21 AM CDT Toño Johnston MD LAB - CHEMISTRY MORA Velasquez Organization Address City/State/ZIP Co de Phone Number [facility] [address] [place] [address] * EKG 12-LEAD (01/18/2018 8:16 AM CDT) Ventricular Rate 58 BPM [facility] Atrial Rate 58 BPM [facility] P-R Interval 208 ms [facility] QRS Duration ms 102 ms [facility] Q-T Interval ms 414 ms [facility] QTC Calculation (Bezet) 406 ms [facility] Calculated P [place] 0 degrees [facility] Calculated R [place] -14 degrees [facility] Calculated T [place] 49 degrees [facility] Interpretation EKG Sinus bradycardia Otherwise normal ECG No previous ECGs available Confirmed by MARY RODRIGUEZ, TRENT ([id number]) on 01/19/2018 9:04:24 AM [facility] 01/18/2018 8:16 AM CDT 01/19/2018 9:04 AM CDT Toño Johnston MD ECG ORDERABLES [facility] Care Teams Terminal Operations Manager Relationship Specialty Start Date End Date Brittany Elias MD [address] [place] [address] [address] [place] [phone] PCP - General 05/26/19 [place] [address] [place] [address] Orthopedic Surgery 06/06/14
--- OUTSIDE RECORDS SUMMARY | 2024-06-17 00:58 | XMS_ITS | Clinical Summary ---
Author Organization [facility] Address [address] [place] [address] Phone Care Team Providers Care Air Support Control Officer Name Role Phone Daly Pinto NP Primary Care Provider [phone] Allergies Active Allergy Reactions Criticality Noted Date [...] 02/12/2018, 04/28/2016, Additional history exists Care Teams Air Support Control Officer Relationship Specialty Start Date End Date Daly Pinto NP [address] [phone] PCP - General Family Medicine 10/19/18
--- OUTSIDE RECORDS SUMMARY | 2024-06-17 00:59 | XMS_ITS | Continuity of Care Document ---
Author Organization [facility] Address [address] [place] [address] Phone Care Team Providers Care Marketing Finance Manager Name Role Phone Tomas Clayton Unavailable Unavailable Procedures Procedure Date Eye Exam Established Pt Ophthalmoscopy, Subsequent Office Consultation Ophthalmoscopy Advance Directives Directive Yes / No Effective Date File Name No Information Encounters Encounter Description Practice Location Reason(s) For Visit Diagnoses Date Provider Providers Copied on Encounter Located within [facility], [id number] [place] [address] [address], [place], [place], [id number], tel:[phone] [facility] No Information [address] [place], [place], [facility], . [phone] Referring Provider: Tomas Berg, [address] [place], [place], [facility]. tel:[phone] Office Consultation Located within [facility], [address] [place] [address] [address], [place], [place], [id number], tel:[phone] [facility] No Information [address] [place], [place], [facility], [place]. tel:[phone] Referring Provider: Marcio Lagunas, [address], [place], [place], [facility]. tel:[phone] Family History Family Member Type Diagnosis Age [...]
== END 2024-06-15 16:55 | disposition home or self-care (01) ==
PROVIDERS: Emergency Provider Emergency Medicine; PCP Family Medicine
DX: R11.2 Nausea with vomiting, unspecified (principal); R23.2 Flushing; L27.0 Generalized skin eruption due to drugs and medicaments taken internally; T37.8X5A Adverse effect of other specified systemic anti-infectives and antiparasitics, initial encounter; N39.0 Urinary tract infection, site not specified; I10 Essential (primary) hypertension; M19.90 Unspecified osteoarthritis, unspecified site; K21.9 Gastro-esophageal reflux disease without esophagitis; G47.30 Sleep apnea, unspecified; Z96.652 Presence of left artificial knee joint; Z86.0100 Personal history of colon polyps, unspecified; Z87.440 Personal history of urinary (tract) infections; Z87.891 Personal history of nicotine dependence; Z90.721 Acquired absence of ovaries, unilateral
CPT/HCPCS: 71045; 96361; 96372; 96374; 96375; 96376; 99284; J0171; J1200; J2405; J2919; J7030; J7512

== ENCOUNTER 2024-06-19 11:08 | Emergency (ER) | payer MEDICARE, SELFPAY ==
--- NOTE | ~2024-06-19 | XR_ITS ---
Clinical Indication: Chest pain PA and lateral views of the chest: Comparison: 06/15/2024 Findings: The lungs are clear, without evidence of focal consolidation or pleural effusion. Cardiome diastinal silhouette is within normal limits. Bones and soft tissues are unremarkable. Impression: Normal chest. Reviewed, dictated and finalized at [facility]. DEVELOPER Impression: Normal chest.
--- NOTE | ~2024-06-19 | CT_ITS ---
EXAMINATION: CTA chest DATE: 06/19/2024 14:35 INDICATION: pain from neck to chest, L arm TECHNIQUE: Computed tomography angiography of the chest was performed with 100 mL Omnipaque-350 intra venous contrast in the arterial phase. Automated exposure control and iterative reconstruction techni que were employed. The dose-length product was 905.44 mGy-cm. COMPARISON: None. FINDINGS: CHEST: Thoracic aorta: No significant dilation or calcification. Mild atherosclerotic calcification. Lung parenchyma and airways: Lungs and airways are clear. Thoracic inlet, axillae and chest wall: No thyroid or soft tissue mass. No axillary lymphadenopathy. Mediastinum: No mass or lymphadenopathy. Although not optimized as a CTPA, the pulmonary arteries are well opacified and no pulmonary embolus is evident. Heart and pericardium: Normal heart size. No pericardial effusion. Coronary artery calcifications: Absent. Pleura: No effusion or mass. Upper abdomen: Status post cholecystomy. Bilateral renal cortical thinning and scarring. Thoracic bones: No acute osseous finding in the chest. IMPRESSION: No acute thoracic process detected. Reviewed, dictated and finalized at location K. [employer]ELOP[employer]
--- NOTE | 2024-06-19 11:09 | ECG_ITS ---
Test Date: 2024-06-19 11:15:13 Measurements Intervals [place] Rate: 95 P: 68 PA: 212 QRS: -27 QRSD: 110 T: 54 QT: 338 QTc: 427 Interpretive Statements SINUS RHYTHM WITH FIRST DEGREE AV BLOCK BORDERLINE LEFT AXIS DEVIATION [QRS AXIS < -20] No previous ECG available for comparison Electronically Signed On 06-19-2024 22:04:46 FABRIC NORMALIZER by Alex Núñez M.D.
--- OUTSIDE RECORDS SUMMARY | 2024-06-19 11:10 | XMS_ITS | Clinical Summary ---
Author Organization [facility] Address [address] [place] [address] Care Team Providers Care Excelsior Machine Feeder Name Role Phone Fabiola Melo MD Unavailable [phone] Brittany Elias MD Primary Care Provider Source Comments [facility],non-owned Affiliates and Associated Physician Practices is amultiple site organization consisting of ambulatory clinics and hospital sitesin [place], [place], [place] and [place]. This disclosure is being madepursuant to the Care Everywhere program and may not contain all information available regarding this patient. Last updated 18.[facility] 2Duche Allergies Active Allergy Reactions Criticality Noted Date [...] fluticasone propionate (FLONASE) 50 MCG/ACT nasal spray [place] 2 sprays into each nostril nightly as [...] this topic Medical Devices Implanted Type Area Drosophere Operator Device Identifier Shelf Expiration Date Model / Serial / Lot Cmnt Bone Cblt 40gm Hvisc Strl Implanted:Qty: 1 on 02/11/2018 by Toño Johnston MD at [facility] Left: Knee [employer] 02/21/2019 600-15-000 / / [id number] Cmpnt Ptlr 28mm 1 Pg Wire Ascnt Arcm Kn Implanted:Qty: 1 on 02/11/2018 by Toño Johnston MD at [facility] Left: Knee [employer] 01/29/2023 [id number] / / [id number] Tray Tib 71mm Kn Cocr I Beam Implanted:Qty: 1 on 02/11/2018 by Toño Johnston MD at [facility] Left: Knee [employer] 12/02/2027 [id number] / / [id number] Cmpnt Fem Kn Lt Cr Cmnt Prm Vngrd Intlk Implanted:Qty: 1 on 02/11/2018 by Toño Johnston MD at [facility] Left: Knee [employer] 10/21/2027 [id number] / / [id number] Brng [id number] Vngrd Arcm Kn Ant Stab Implanted:Qty: 1 on 02/11/2018 by Toño Johnston MD at [facility] Left: Knee [employer] 12/22/2022 [id number] / / [id number] Procedures Procedure Name Priority Date/Time Associated Diagnosis [...] Johnston MD LAB - CHEMISTRY MORA PERRIN [facility] Organization Address City/State/ZIP Co de Phone Number [facility] [address] [place] [address] from Last 3 Months or Most Recently Relevant to Health Maintenance Advance Directives * Full Code (Latest Code Status on File) Date Activated Date Inactivated Comments 02/11/2018 11:11 AM 02/14/2018 1:10 PM Care Teams Excelsior Machine Feeder Relationship Specialty Start Date End Date Brittany Elias MD [address] [place] [phone] PCP - General 05/26/19 [place] [address] [facility] [address] [place] [address] Orthopedic Surgery 06/06/14
--- OUTSIDE RECORDS SUMMARY | 2024-06-19 11:10 | XMS_ITS | Referral Summary ---
Author Organization [facility] Address [address] [place] [address] Care Team Providers Care Licensed Appraiser Name Role Phone Fabiola Melo MD Unavailable [phone] Brittany Elias MD Primary Care Provider Source Comments [facility],non-owned Affiliates and Associated Physician Practices is amultiple site organization consisting of ambulatory clinics and hospital sitesin [place], [place], [place] and [place]. This disclosure is being madepursuant to the Care Everywhere program and may not contain all information available regarding this patient. Last updated 18.[facility] Allergies Active Allergy Reactions Criticality Noted Date [...] fluticasone propionate (FLONASE) 50 MCG/ACT nasal spray [place] 2 sprays into each nostril nightly as [...] on file Medical Devices Implanted Type Area Big Data Engineer Device Identifier Shelf Expiration Date Model / Serial / Lot Cmnt Bone Cblt 40gm Hvisc Strl Implanted:Qty: 1 on 02/11/2018 by Toño Johnston MD at [facility] Left: Knee [employer] Orthoped[employer] 02/21/2019 600-15-000 / / [id number] Cmpnt Ptlr 28mm 1 Pg Wire Ascnt Arcm Kn Implanted:Qty: 1 on 02/11/2018 by Toño Johnston MD at [facility] Left: Knee [employer] 01/29/2023 [id number] / / [id number] Tray Tib 71mm Kn Cocr I Beam Implanted:Qty: 1 on 02/11/2018 by Toño Johnston MD at [facility] Left: Knee [employer] 12/02/2027 [id number] / / [id number] Cmpnt Fem Kn Lt Cr Cmnt Prm Vngrd Intlk Implanted:Qty: 1 on 02/11/2018 by Toño Johnston MD at [facility] Left: Knee [employer] 10/21/2027 [id number] / / [id number] Brng [id number] Vngrd Arcm Kn Ant Stab Implanted:Qty: 1 on 02/11/2018 by Toño Johnston MD at [facility] Left: Knee [employer] 12/22/2022 [id number] / / [id number] Procedures Procedure Name Priority Date/Time Associated Diagnosis Comments COMPREHENSIVE METABOLIC PANEL Routine 01/18/2018 8:27 AM CDT Preop examination from Last 3 Months or Most Recently Relevant to Health Maintenance Results * (ABNORMAL) COMPREHENSIVE METABOLIC PANEL (01/18/2018 8:27 AM CDT) [facility] Glucose 97 74 - 106 mg/dL 01/18/2018 11:40 AM CDT [facility] Sodium 137 136 - 145 mmol/L 01/18/2018 11:40 AM CDT [facility] Potassium 4.5 3.5 - 5.1 mmol/L 01/18/2018 11:40 AM CDT [facility] Chloride 103 98 - 107 mmol/L 01/18/2018 11:40 AM CDT [facility] CO2 28 22 - 31 mmol/L 01/18/2018 11:40 AM CDT [facility] Calcium 10.7(H) 8.5 - 10.1 mg/dL 01/18/2018 11:40 AM CDT [facility] Anion Gap 6(L) 8 - 16 mmol/L 01/18/2018 11:40 AM CDT [facility] BUN 21 7 - 21 mg/dL 01/18/2018 11:40 AM CDT [facility] Creatinine 1.00 0.50 - 1.30 mg/dL 01/18/2018 11:40 AM CDT [facility] Alkaline Phosphatase 57 38 - 126 U/L 01/18/2018 11:40 AM CDT [facility] ALT 37 13 - 61 U/L 01/18/2018 11:40 AM CDT [facility] AST 18 5 - 40 U/L 01/18/2018 11:40 AM CDT [facility] Protein Total 7.5 6.4 - 8.2 gm/dL 01/18/2018 11:40 AM CDT [facility] Albumin 4.0 3.4 - 5.0 gm/dL 01/18/2018 11:40 AM CDT [facility] Bilirubin Total 0.6 0.2 - 1.0 mg/dL 01/18/2018 11:40 AM CDT [facility] eGFR by MDRD 56(L) >60 mL/min/1.7 3m2 01/18/2018 11:40 AM CDT [facility] eGFR by MDRD >60 >60 mL/min/1.7 3m2 01/18/2018 11:40 AM CDT [facility] Blood BLOOD SPECIMEN / Unknown Venipuncture / Unknown 01/18/2018 8:27 AM CDT 01/18/2018 11:21 AM CDT Toño Johnston MD LAB - CHEMISTRY MORA PERRIN [facility] Organization Address City/State/ZIP Co de Phone Number [facility] [address] [place] [address] from Last 3 Months or Most Recently Relevant to Health Maintenance Administered Medications Advance Directives * Full Code (Latest Code Status on File) Date Activated Date Inactivated Comments 02/11/2018 11:11 AM 02/14/2018 1:10 PM Care Teams Licensed Appraiser Relationship Specialty Start Date End Date Brittany Elias MD [address] [place] [phone] PCP - General 05/26/19 [place] [address] [address] Orthopedic Surgery 06/06/14
--- OUTSIDE RECORDS SUMMARY | 2024-06-19 11:11 | XMS_ITS | Clinical Summary ---
Author Organization [facility] Address [address] [place] [address] Phone Care Team Providers Care Wholesale Buyer Name Role Phone Daly Pinto SCHOOL TREASURER, BOAT HOIST OPERATOR HELPER Primary Care Pro vider Medications Aspirin 81 [...] Comments Blood Pressure 130/86 04/08/2019 8:56 AM ATTRACTIONS ASSOCIATE Pulse 70 04/08/2019 8:56 AM ATTRACTIONS ASSOCIATE Temperature - - Respiratory Rate - - Oxygen Saturation 98% 04/08/2019 8:56 AM ATTRACTIONS ASSOCIATE Inhaled Oxygen Concentration - - Weight 108 kg (238 lb) 04/08/2019 8:56 AM ATTRACTIONS ASSOCIATE Height 160 cm (5' 3 ) 04/08/2019 8:56 AM ATTRACTIONS ASSOCIATE Body Mass Index 42.16 04/08/2019 8:56 AM ATTRACTIONS ASSOCIATE Plan of Treatment Health Maintenance Due Date [...] Most Recently Relevant to Health Maintenance Insurance [facility] Care Teams Wholesale Buyer Relationship Specialty Start Date End Date Daly Pinto APRN, BOAT HOIST OPERATOR HELPER [address] [place] [address] PCP - General Certified Nurse Practitioner 11/02/18
--- OUTSIDE RECORDS SUMMARY | 2024-06-19 11:11 | XMS_ITS | Clinical Summary ---
Author Organization [facility] Address [address] [place] [address]. [place] [address] [place] [address] Care Team Providers Care Bounty Hunter Name Role Phone Unavailable Primary Care Provider [...] (1 - 1-dose 75+ series) 2029 Meningococcal B Vaccine Aged Out No l onger eligible based on patient's age to complete this topic Meningococcal Vaccine Aged Out No kristy teodoro eligible based on patient's age to complete this topic RSV Immunizations Under 20 Months Aged Out No longer eligible based on patient's age to complete this topic
--- OUTSIDE RECORDS SUMMARY | 2024-06-19 11:11 | XMS_ITS | Data Portability ---
Author Organization [place] [facility]oko, Main Office Address [address] [place] [address] Care Team Providers Care Roll Wrapper Name Role Phone MICHAEL FAYE Primary Care Provider Assessment Encounter Date Assessment Date Assessment LastModified [...] in 3 months. Annual labs in 09/16. [email or web address] Not available 12/30/2023 10:17:46 03/31/2024 03/31/2024 68 [...] before next visit. Annual labs in 09/16. [email or web address] Not available 03/31/2024 10:11:32 Plan of Treatment Reminders Order Date Submit Date Provider Last Modified By Organization Details Last Modified Time Details Appointments Follow Up 15 2024 09:00A Odin Faye MD Not available Not available Not available Lab unlisted lab - PTH biointact w/calcium 2023 024 [facility] (Lab), [address] [place], [address], 11/16/2023 08:18:49 PTH (parathyr oid hormone), intact + calcium, serum or plasma 2023 024 [email or web address] [facility] (Lab), [address] [place], [address], 04/07/2024 08:21:35 urinalysi s, dipstick 2024 025 [facility], [address] [facility], [place], [address], 06/15/2024 10:58:49 culture, urine + sensitivi ty 2024 025 [facility] (Lab), [address] [place], [address], 06/15/2024 15:25:27 Referral orthopedi c surgeon referral - Please call patient to schedule an appointme nt. Thank you. 2023 024 [email or web address] Toño Johnston, [address], [place], [address], 12/09/2023 08:58:36 endocrino logy referral - Please call patient to schedule an appointme nt. Thank you, 2023 024 [email or web address] Madeleine Mcbride MD, [address] [facility] [address], [place], [address], 01/28/2024 15:12:00 Procedures None recorded. Surgeries None recorded. Imaging XR, knee, 3 view 2023 024 [facility], [address], [place], [address], 2023 11:38:52 XR, sacroilia c joint(s) 2023 024 [email or web address] [id number] [facility], [address], [address], [place], [address], 11/25/2023 10:25:53 Medication Orders naproxen 375 mg tablet,de layed release 2023 024 [facility], [place], [address], 11/09/2023 15:02:13 alendrona te 70 mg tablet 2023 024 [facility] [address], [place], [address], 12/30/2023 10:10:44 amlodipin e 5 mg tablet 2023 024 [facility] [address], [place], [address], 12/30/2023 10:10:48 losartan 100 mg tablet 2023 024 [facility] [address], [place], [address], 12/30/2023 10:10:44 triamtere ne 37.5 mg-hydroc hlorothia zide 25 mg capsule 2023 024 [facility] [address], [place], [address], 12/30/2023 10:10:46 allopurin ol 300 mg tablet 2023 024 [facility] [address], [place], [address], 12/30/2023 10:10:43 rosuvasta tin 5 mg tablet 2023 024 [facility] [address], [address], [place], [address], 12/30/2023 10:10:47 tramadol 50 mg tablet 2023 024 [facility] [address], [address], [place], [address], 12/30/2023 10:17:24 escitalop marty 10 mg tablet 2023 [facility] [address], [place], [address], 12/30/2023 10:10:45 alendrona te 70 mg tablet 2023 [facility] [address], [address], [place], [address], 03/31/2024 09:52:20 amlodipin e 5 mg tablet 2023 [facility] [address], [address], [place], [address], 03/31/2024 09:52:19 losartan 100 mg tablet 2023 [facility] [address], [address], [place], [place], [address], 03/31/2024 09:52:20 triamtere ne 37.5 mg-hydroc hlorothia zide 25 mg capsule 2023 024 [facility] [address], [address], [place], [place], [address], 03/31/2024 09:52:19 allopurin ol 300 mg tablet 2023 024 [facility] [address], [address], [place], [place], [address], 03/31/2024 09:52:19 rosuvasta tin 5 mg tablet 2023 [facility] [address], [address], [place], [address], 03/31/2024 09:52:22 tramadol 50 mg tablet 2023 [facility] [address], [address], [place], [address], 03/31/2024 10:05:52 meloxicam 7.5 mg tablet 2023 024 [facility] [address], [address], [place], [address], 03/31/2024 10:06:16 escitalop marty 10 mg tablet 2023 024 [facility] [address], [address], [place], [address], 03/31/2024 09:52:19 Macrobid 100 mg capsule 2024 025 [facility] [address], [address], [place], [address], 06/15/2024 10:47:06 Patient TargetsNo targets recorded. Patient Instructions Encounter Date Encounter Id Patient Instructions Last Modified By Organization Details Last Modified Time 12/30/2023 [id number] starting a weigh t loss plan: care instructions [email or web address] Not available 12/30/2023 10:18:58 03/31/2024 [id number] starting a weigh t loss plan: care instructions Not available 03/31/2024 09:52:10 Reason for Referral [...] parathyroid hormone 77.9 pg/mL 24- Not Available [facility] (Lab) [address] [facility] [place], [address], 12/22/2023 18:08:12 12/22/19 24 12/22/2023 PARAT HYROAkbar D HORM (PTH) INT.W /CA calcium 11.0 mg/dL 8.4-10 .2 high Not Available [facility] (Lab) [address] [place], [address], 12/22/2023 18:08:12 12/22/19 24 12/22/2023 URIC ACID SERUM uric acid 5.6 mg/dL 2.5-6. 2 Not Available [facility] (Lab) [address] [place], [address], 12/22/2023 19:06:30 12/22/19 24 12/22/2023 LIPID PANEL cholesterol 165 mg/dL 140-19 9 NIH LUPIS NSUS RECOM MENDA TION FOR GENEVIEVE STERO L: ADULT CHILD LOW RISK: <200 <170 BORDE RLINE : <200- 239 ----- HIGH RISK: >240 >200 Not Available [facility] (Lab) [address] [place], [address], 12/22/2023 19:05:17 12/22/19 24 12/22/2023 LIPID PANEL triglyceride s 191 mg/dL 0-150 high NIH LUPIS NSUS REPOR T RECOM MENDA TION FOR TRIGL YCERI BERNA: ADULT CHILD LOW RISK: <150 ----- BODER LINE: 150-1 99 ----- HIGH RISK: >200 ----- Not Available [facility] (Lab) [address] [place], [address], 12/22/2023 19:05:17 12/22/1912/22/2023 LIPID PANEL HDL cholesterol 34 mg/dL 40- low Not Available [facility] (Lab) [address] [place], [address], 12/22/2023 19:05:17 12/22/19 24 12/22/2023 LIPID PANEL [...] NOT BE REPOR GRACIELA. Not Available [facility] (Lab) [address] [place], [address], 12/22/2023 19:05:17 12/22/19 24 12/22/2023 HEPAT IC/LI REX PANEL alkaline phosphatase 61 U/L 38-126 Not Available [facility] (Lab) [address] [place], [address], 12/22/2023 19:05:29 12/22/19 24 12/22/2023 HEPAT IC/LI REX PANEL alanine aminotransfe rase 45 U/L 0-35 high Not Available [facility] (Lab) [address] [place], [address], 12/22/2023 19:05:29 12/22/19 24 12/22/2023 HEPAT IC/LI REX PANEL aspartate aminotransfe rase 30 U/L 15-37 Not Available [facility] (Lab) [address] [place], [address], 12/22/2023 19:05:29 12/22/19 24 12/22/2023 HEPAT IC/LI REX PANEL bilirubin, total 1.00 mg/dL 0.20-1 .30 Not Available [facility] (Lab) [address] [place], [address], 12/22/2023 19:05:29 12/22/19 24 12/22/2023 HEPAT IC/LI REX PANEL bilirubin, conjugated (direct) 0.00 mg/dL 0.00-0 .30 Not Available [facility] (Lab) [address] [place], [address], 12/22/2023 19:05:29 12/22/19 24 12/22/2023 HEPAT IC/LI REX PANEL biliurubin,u ncong. (indirect) 0.60 mg/dL 0.00-1 .1 Not Available [facility] (Lab) [address] [place], [address], 12/22/2023 19:05:29 12/22/19 24 12/22/2023 HEPAT IC/LI REX PANEL total protein 7.4 g/dL 6.3-8. 2 Not Available [facility] (Lab) [address] [place], [address], 12/22/2023 19:05:29 12/22/19 24 12/22/2023 HEPAT IC/LI REX PANEL albumin 4.7 g/dL 3.0-4. 4 high Not Available [facility] (Lab) [address] [place], [address], 12/22/2023 19:05:29 12/22/19 24 12/22/2023 HEPAT IC/LI REX PANEL globulin 2.7 g/dL 2.6-4. 2 Not Available [facility] (Lab) [address] [place], [address], 12/22/2023 19:05:29 12/22/19 24 12/22/2023 HEPAT IC/LI REX PANEL A/G ratio 1.7 ratio 1.0-2. 0 Not Available [facility] (Lab) [address] [place], [address], 12/22/2023 19:05:29 03/31/20 24 03/31/2024 JANELLE FLORES (PTH) INT.W /CA intact parathyroid hormone 90.5 pg/mL 24-78 high Not Available [facility] (Lab) [address] [place], [address], 03/31/2024 14:35:25 03/31/20 24 03/31/2024 PARAT DENIZ FLORES (PTH) INT.W /CA calcium 11.6 mg/dL 8.4-10 .2 high Not Available [facility] (Lab) [address] [place], [address], 03/31/2024 14:35:25 06/15/19 25 06/15/2024 urina lysis , dipst ick Leukocytes (reference range: negative afshan/??l) Modera te Not Available [address], [address], 06/15/2024 10:46:33 06/15/19 25 06/15/2024 urina lysis , dipst ick Nitrite (reference rage: negative mg/dl) negati ve Not Available [address], [address], 06/15/2024 10:46:33 06/15/19 25 06/15/2024 urina lysis , dipst ick Urobilinogen (reference range: 0.2-1 mg/dl) 0.2 Not Available [address], [address], 06/15/2024 10:46:33 06/15/19 25 06/15/2024 urina lysis , dipst ick Protein (reference range: negative mg/dl) Trace Not Available [address], [address], 06/15/2024 10:46:33 06/15/19 25 06/15/2024 urina lysis , dipst ick pH (reference range: 5-7) 7.0 Not Available [address], [address], 06/15/2024 10:46:33 06/15/19 25 06/15/2024 urina lysis , dipst ick Blood (reference range: negative Cornelio/??l) Negati ve Not Available [address], [address], 06/15/2024 10:46:33 06/15/19 25 06/15/2024 urina lysis , dipst ick Specific Edwards (reference range: 1.005-1.030) 1.010 Not Available [address], [address], 06/15/2024 10:46:33 06/15/19 25 06/15/2024 urina lysis , dipst ick Ketone (reference range: negative mg/dl) Negati ve Not Available [address], [address], 06/15/2024 10:46:33 06/15/19 25 06/15/2024 urina lysis , dipst ick Bilirubin (reference range: negative mg/dl) Negati ve Not Available [address], [address], 06/15/2024 10:46:33 06/15/19 25 06/15/2024 urina lysis , dipst ick Glucose (reference range: negative mg/dl) Negati ve Not Available [address], [address], 06/15/2024 10:46:33 06/15/19 25 06/15/2024 urina lysis , dipst ick Appearance Clear Not Available [address], [address], 06/15/2024 10:46:33 06/15/19 25 06/15/2024 urina lysis , dipst ick Color Yellow Not Available [facility] Terry [address] [facility], [place], [address], 06/15/2024 10:46:33 11/04/19 24 11/04/2023 US, duple x, venou s, lower extre mity, unila teral No observ ation record ed. [address], [place], [address], 11/04/2023 10:26:02 11/10/19 24 11/09/2023 XR, knee, 3 view No observ ation record ed. [facility] [address], [place], [address], 2023 14:31:17 02/08/20 24 02/05/2024 MAMMO , scree kayden, bilat eral No observ ation record ed. [address] [facility] [address], [place], [address], 03/31/2024 09:47:38 06/15/19 25 06/15/2024 XR, chest , 2 view No observ ation record ed. [address], [place], [address], 06/15/2024 16:11:08 Result Notes None recorded. Problems Name Problem SNOMED Code Status Onset Date Resolution Date Notes Provider Name and Address Organization Details Recorded Time Acute sinusitis 75271383 Active 2020 Not Available [facility] 3 07:31:19 Anthony hematuria 487048901 Completed Not Available [facility] 3 07:31:20 Sciatica 35663853 Active 2021 Not Available [facility] 3 07:31:20 Mixed anxiety and depressiv e disorder 939021645 Active 2021 Not Available [facility] 3 07:31:20 Gastroeso phageal reflux disease 205193009 Active 2019 Not Available [facility] 3 07:31:20 Osteoarth ritis of knee 407290541 Active 2016 Not Available [facility] 3 07:31:20 Lumbar spondylos is 238584223 Active 2021 Not Available [facility] 3 07:31:20 Headache 25188548 Completed Daly Pinto NP [address], [address], [place], [address] , [facility] 3 12:00:58 History of thyroid disorder 595684262 Active 2020 Not Available [facility] 3 07:31:20 Low back pain 447734011 Active 2021 Not Available [facility] 3 07:31:20 Retinal disorder 05195855 Active Not Available [facility] 3 07:31:20 Hypertrig lyceridem ia 319326978 Active 2020 Not Available [facility] 3 07:31:21 Depressiv e disorder 06616984 Active Not Available [facility] 3 07:31:21 Seasonal allergic rhinitis 660605135 Active 2019 Not Available [facility] 3 07:31:21 Sinusitis 10055592 Active 2017 Not Available [facility] 3 07:31:21 Hypertens shana disorder 83107099 Active 2019 Not Available [facility] 3 07:31:21 Hematoma 306503243 Completed Not Available [facility] 3 07:31:21 Memory impairmen t 233715280 Active 2020 Not Available [facility] 3 07:31:21 Furuncle 809099643 Completed Michael Faye MD [address], [place], [address] , [email or web address] [facility] 4 10:18:43 Environme ntal allergy 105931623 Active 2016 Not Available [facility] 3 07:31:21 Herniatio n of lumbar intervert ebral disc with sciatica 24842892503 4105 Active 2021 Not Available [facility] 3 07:31:22 Foot pain 19109483 Completed Not Available [facility] 3 07:31:22 Bilateral tinnitus 56043641343 02 Active 2019 Not Available [facility] 3 07:31:22 Anxiety 24979532 Active Not Available [facility] 3 07:31:22 Upper respirato ry infection 86121492 Completed Not Available [facility] 3 07:31:22 Hyperlipi demia 78492120 Active 2016 Not Available [facility] 3 07:31:22 Migraine without aura 58530106 Active 2016 [facility] Available [facility] 3 07:31:22 Osteoporo sis 67373148 Active 2021 Not Available [facility] 3 07:31:23 Urinary tract infectiou s disease 28721779 Completed Michael Faye MD [address] [place] [address], [address] , [facility] [employer] 4 16:13:03 Acid reflux 733779685 Active 2018 Not Available [facility] 3 07:31:23 Liver enzymes level above reference range 631530900 Active 2020 Not Available [facility] 3 07:31:23 Varicose veins of lower extremity 03779322 Active 2016 Not Available [facility] 3 07:31:23 Sleep apnea 87808869 Active Not Available [facility] 3 07:31:24 Urgent desire to urinate 03519263 Completed Not Available [facility] 3 07:31:24 Postmenop ausal state 39632128 Active 2021 Not Available [facility] 3 07:31:24 Hyperglyc emia 85188230 Active 2016 Not Available [facility] 3 07:31:24 Gout 15862275 Active 2021 Not Available [facility] 3 07:31:24 Skin lesion 39123302 Completed Not Available [facility] 3 07:31:25 Kidney stone 63352068 Completed Not Available [facility] 3 07:31:25 Obese 832249242 Active 2022 Daly Pinto NP [address], [address], [place], [address] , [employer] 3 11:56:43 Headache 80803754 Active 2022 Daly Pinto NP [address], [address], [place], [address] , [employer] 3 12:00:58 Lumbar radiculop athy 683903724 Active 2022 Michael Faye MD [address], [address], [place], [address] , [employer] 3 17:01:57 Obesity 405121175 Active 2022 Michael Faye MD [address], [address], [place], [address] , [employer] 3 17:02:46 Lipoma of lower leg 057211271 Active 2022 Michael Faye MD [address], [address], [place], [address] , [employer] 3 17:43:42 Idiopathi c hypercalc emia 141010512 Active 2022 Michael Faye MD [address], [address], [place], [address] , [employer] 3 14:31:47 Hyperpara thyroidis m 93917275 Active 2022 Daly Pinto NP [address], [address], [place], [address] , [employer] 3 17:11:28 Blood in urine 55512245 Active 2022 Daly Pinto NP [address], [address], [place], [address] , [facility] 3 10:44:02 Abnormal uterine bleeding 52497618222 100 Active 2022 Daly Pinto NP [address], [address], [place], [address] , [facility] 3 10:44:49 Acute urinary tract infection 414093529 Active 2022 Daly Pinto NP [address], [place], [address] , [facility] 3 08:51:54 Dysuria 49126813 Active 2022 Daly Pinto NP [address], [place], [address] , [facility] 3 10:52:22 Urinary tract infectiou s disease 52491299 Active 2023 Michael Faye MD [address], [place], [address] , [facility] 4 16:13:03 Bilateral earache 856969184 Active 2023 Michael Faye MD [address], [place], [address] , [facility] 4 16:33:22 Candidal vulvovagi nitis 77546619 Active 2023 Michael Faye MD [address], [address], [place], [address] , [facility] 4 16:37:42 Gouty arthropat hy 497577781 Active 2023 Michael Faye MD [address], [place], [address] , [facility] De[facility] 4 09:56:46 Polyarthr opathy 39975850 Active 2023 Michael Faye MD [address] [facility] [address], [place], [address] , [facility] Daily De[facility] 4 09:58:59 Obstructi ve sleep apnea syndrome 88878675 Active 2023 Michael Faye MD [address] [facility], [address] [address], [place], [address] , [facility] [employer] [facility] [employer] [facility] 4 10:07:57 Pain of right knee joint 31397679825 4100 Active 2023 LILLY Beltran [address] [facility], [address] [address], [place], [address] , [facility] Daily De[employer] [facility] 4 14:54:22 Hypercalc emia 99931131 Active 2023 LILLY Beltran [address] [facility], [address] [address], [place], [address] , [email or web address] [facility] [employer] [facility] 4 14:58:37 Problem Notes None recorded. Procedures Surgical History Date Name Laterality Status Provider Name and Address Organization Details Recorded Time 09/29/19 24 Medicare Wellness CPT Code, subsequent completed Reji Ashton [facility] [employer] [facility] 09/29/2023 14:15:26 06/18/19 24 Transitional_Care_ Management completed Reji Ashton [place] [employer] [facility] [employer] [facility] 06/18/2023 16:22:09 06/23/19 23 Most Recent Mammogram completed Daly Monte RN [facility] [employer] [facility] 10/09/2022 09:25:48 04/03/20 22 Most Recent Bone Density completed Not Available [facility] 07/23/2022 07:26:53 05/25/19 18 Knee Replacement completed Not Available [facility] 07/23/2022 07:26:55 05/25/19 02 repair of ovary completed Not Available [facility] 07/23/2022 07:26:55 05/25/18 92 Cholecystectomy completed Not Available [facility] 07/23/2022 07:26:55 Imaging Results Imaging Date Name Status [facility]Modified by [facility] Details LastModified Time 11/04/2023 US, duplex, venous, lower extremity, unilateral completed [address], [place], [address], 11/04/2023 10:26:02 11/09/2023 XR, knee, 3 view completed [facility] [address], [place], [address], 2023 14:31:17 02/05/2024 MAMMO, screening, bilateral completed [facility] [address], [place], [address], 03/31/2024 09:47:38 06/15/2024 XR, chest, [address] view completed [address], [place], [address], 06/15/2024 16:11:08 Procedure Notes None recorded. Medical Equipment None Reported. Allergies Allergen ID Allergen Name Allergen Category Reaction Reaction Severity Criticality Documentation Date Start Date Code Code System Note Provider Name and Address Organization Details Recorded Time 71246 Substance with sulfonami de structure and antibacte rial mechanism of action (substanc e) medicatio n nausea Not available Not available 07/23/2022 59843 8003 SNOMED Not Available [facility] 3 07:36:13 24996 Zithromax medicatio n other Not available Not available 03/31/2024 4 RxNorm cause s pt to be super jitte ry ARAMIS Mccarty [employer] 4 09:43:14 08544 Macrobid medicatio n anaphylax is severe high 06/16/20242024 39609 1 RxNorm state s her throa t close d up with in the hour of takin g it, had to go to ER Yara scanlon [facility] 5 09:32:31 Medications Name Sig Start Date [...] completed Not Available Not Available Not Available Augmentin 500 mg-125 mg tablet Take 1 tablet every 12 hours by oral route for 7 days. 2024 active Not Available Not Available Not Avai lable naproxen 500 mg tablet 1 tab po [...] Not Available Not Available naproxen 375 mg tablet,de layed release [...] Not Available Not Available Not Available Afluria 8069-8230 (PF) 45 mcg (15 mcg x 3)/0.5 [...] Updated DateTime 4 160.02 cm 41.7 kg/m2 587069. 36 g 98.5 [degF] 79 /min 20 /min 96 % 96 % 142 mm[Hg] 78 mm[Hg] Daly Monte RN [facility] 4 14:38:06 Date Recorded Body height Body mass index (BMI) Body weight Body temperature Heart rate Respiratory rate Oxygen saturation Oxygen saturation in Arterial blood by Pulse oximetry Systolic blood pressure Diastolic blood pressure Provider Name and Address Organization Details Last Updated DateTime 4 160.02 cm 40.9 kg/m2 929788. 19 g 98.1 [degF] 76 /min 20 /min 98 % 98 % 136 mm[Hg] 76 mm[Hg] Reji Ashton [facility] 4 09:57:01 Date Recorded Body height Body mass index (BMI) Body weight Body temperature Heart rate Oxygen saturation Oxygen saturation in Arterial blood by Pulse oximetry Systolic blood pressure Diastolic blood pressure Provider Name and Address Organization Details Last Updated DateTime 4 160.02 cm 40.3 kg/m2 354249. 98 g 97.2 [degF] 62 /min 98 % 98 % 138 mm[Hg] 78 mm[Hg] Regla Mukherjee RN [facility] 4 09:45:57 Date Recorded Body height Body mass index (BMI) Body weight Body temperature Heart rate Respiratory rate Oxygen saturation Oxygen saturation in Arterial blood by Pulse oximetry Systolic blood pressure Diastolic blood pressure Provider Name and Address Organization Details Last Updated DateTime 5 160.02 cm 41.5 kg/m2 700469. 61 g 97.3 [degF] 74 /min 20 /min 97 % 97 % 160 mm[Hg] 90 mm[Hg] Daly Monte RN [facility] 5 10:40:55 Social History Question Answer Notes LastModified by Organization Details LastModified Time Tobacco Smoking Status Never Smoker Elida scanlon [facility] [facility] 06/18/2023 16:10:12 Do You Have An Advance Directive? Yes [id number] Information not available 07/23/2022 What Is Your Level Of Alcohol Consumption? None [id number] Information not available 07/23/2022 Are You Blind Or Do You Have Difficulty Seeing? No Information not available 06/18/2023 Is Blood Transfusion Acceptable In An Emergency? Yes Information not available 06/18/2023 What Is Your Level Of Caffeine Consumption? Moderate [id number] Information not available 07/23/2022 How Much Tobacco Do You Chew? None [id number] Information not available 07/23/2022 What Is Your [...] Type Of Diet Are You Following? GLUTENFREE [email or web address] Information not available 12/30/2023 Which Illicit Or Recreational Drugs Have You Used? None Information not available 06/18/2023 Do You Or Have You Ever Used E-cigarettes Or Vape? Never Used Electronic Cigarettes Information not available 06/18/2023 What Is The Highest Grade Or Level Of School You Have Completed Or The Highest Degree You Have Received? [id number] Information not available 06/18/2023 What Is Your [...] not available 06/18/2023 Where Do You Live? [facility] Information not available 06/18/2023 Advance Directive- [...] Do You Have A Medical Power Of Car [place]? No Information not available 06/18/2023 What Was [...] Anxious, Or Unable To Sleep At Night)? [id number] Information not available 11/09/2023 Do You Use [...] 06/18/2023 What is your exercise level? Moderate [email or web address] Information not available 12/30/2023 Mental Status Question Answer Note LastModified by Organization D etails LastModified Time Do you have difficulty concentrating, remembering or making decisions? No Information no t available 06/18/2023 Family History Relationship Description Onset Age of this Age Resolved Age Notes LastModified by Organization Details LastModified Time Father No current problems or disability [id number] Not available 07/23/2022 07:26:58 Mother No current problems or disability [id number] Not available 07/23/2022 07:26:58 Medical History Condition [...] virus, quadrivalent, preservative 8 completed Not Available [facility] 07/23/2022 07:36:04 Influenza, split virus, trivalent, preservative 5 completed Not Available [facility] 07/23/2022 07:36:04 zoster live 5 completed Not Available [facility] 07/23/2022 07:36:04 Influenza, split virus, trivalent, PF 4 completed Not Available [facility] 07/23/2022 07:36:04 Pneumococcal conjugate PCV 13 0 completed Not Available [facility] 07/23/2022 07:36:05 Influenza, high-dose, quadrivalent, PF 0 completed Not Available [facility] 07/23/2022 07:36:05 Tdap 8 completed Not Available [facility] 07/23/2022 07:36:05 Influenza, split virus, quadrivalent, PF 6 completed Not Available [facility] 07/23/2022 07:36:05 Past Encounters Encounter ID Performer Location Encounter Start Date Encounter Closed Date Diagnosis/Indication Diagnosis SNOMED-CT Code Diagnosis ICD10 Code Diagnosis Note [id number] [facility] [place] [address] [place] [address] 07/24/2020 00:00:00 07/24/2020 09:44:41 [id number] [facility] [place] [address] [place] [address] 10/31/2020 00:00:00 10/31/2020 09:16:25 [id number] [facility] [place] [address] [place], [place] [address] [place] [address] 11/20/2020 00:00:00 11/20/2020 12:21:01 [id number] [facility] [place] [address] [place] [address] 02/13/2021 00:00:00 02/13/2021 14:33:22 [id number] [facility] [place] [address] [place] [address] 02/26/2021 00:00:00 02/26/2021 14:32:03 [id number] [facility] [place] [address] [place] [address] 07/24/2021 00:00:00 07/24/2021 14:56:44 [id number] [facility] [place] [address] [place] [address] 10/09/2021 00:00:00 10/09/2021 14:38:30 [id number] [facility] [place] [address] [place] [address] 02/26/2022 00:00:00 02/26/2022 10:42:26 [id number] [facility] [place] [address] [place] [address] 03/18/2022 00:00:00 03/19/2022 15:55:39 [id number] [facility] [place] [address] [place] [address] 04/29/2022 00:00:00 04/29/2022 18:09:05 [id number] [facility] [place] [address] [place] [address] 05/06/2022 00:00:00 05/06/2022 15:25:01 [id number] Daly Pinto NP [facility] [place] [address] [place] [address] 08/06/2022 11:17:09 08/06/2022 12:50:33 Hyperlipidemia 28418639 E78.5 Low fat diet. Statins cause pain. 02/27/22 last lab result. Essential hypertension 19529813 I10 amlodipine 5 mg po daily.ASA 81 mg po dailyLosar puckett 100 mg po daily.tria mterene 37.5 mg-hctz25 mg po daily. (this can increase gout flare, so stopped and started on losartan only) Osteoporosis 31805267 M8 1.0 alendronat e 70 mg po weekly pt stopped. Wants to follow Dr. Sims holistic provider and be on vitamins.M eloxicam 15 mg po daily.Tram adol 50 mg po tid prn- pt trying to wean off. Acid reflux 355880694 K2 1.9 famotidine 20 mg po daily. Sleep apnea 60969186 G47 .30 Gout 95180788 M10.9 allopurino l 100 mg po daily. Seasonal a llergic rhinitis 335888836 J30.2 cetirizine 10 mg po daily.Flon ase prn Mixed anxi ety and depressive disorder 687284812 F41.8 Pt weaned herself off the lexapro. Hydroxyzin e prn use. Sciatica 49670593 M54.32 cyclobenza shalini 10 mg po tid prn.Gabape ntin 300 mg po nightly. Obese 850163742 E66.9 Diet and exercise. Wegovy and phentermin e discussed. Phentermin e 15 mg po daily. Headache 66635574 R51.9 [id number] Michael Faye MD [address] [address] 08/07/2022 16:38:36 08/07/2022 17:44:28 Cramp in lower limb 865039381 R25.2 B/L Lumbar radiculopathy 128 375608 M54.16 Gout 10988034 M10.9 Obesity 919088874 E66.9 Lipoma of lower leg 1890 95314 D17.24 Lt [id number] Daly Pinto NP [address] [address] 09/09/2022 09:34:15 09/09/2022 10:58:16 Blood in urine 39083221 R31.9 Sending urine for culture. Blood with wiping- no periods for 15 years. Abnormal u terine bleeding 3249803763 9100 N93.9 referring to inspector motor vehicles- pt to find provider that accepts insurance. Obese 051997887 E66.9 Diet and exercise. Phentermin e 15 mg po daily. Down 2 lbs. Would like to continue. [id number] Daly Pinto NP [address] [address] 10/09/2022 09:13:04 10/09/2022 10:05:37 Obese 635823371 E66.9 Diet and exercise. Phentermin e 15 mg po daily. Down 2 lbs. Would like to continue.I LPMP last fill 09/09/22.Ph entermine 37.5 mg po daily. Essential hypertension 95324574 I10 amlodipine 5 mg po daily.ASA 81 mg po dailyLosar puckett 100 mg po daily.tria mterene 37.5 mg-hctz25 mg po daily. (this can increase gout flare, so stopped and started on losartan only) Gastroesop hageal reflux disease 587606945 K21.9 [id number] Daly Pinto NP [address] [address] 10/24/2022 10:41:24 10/24/2022 11:44:26 Dysuria 44332085 R30.0 R30.9 Patient was started on antibiotic and advised to increase water intake.Cul ture sent.Urina lysis in office +nitrites [id number] Daly Pinto NP [address] [address] 01/21/2023 13:58:46 01/21/2023 18:03:00 Gout 54397940 M10.9 allopurino l 200 mg po daily. Seeing Dr. Becerra. Sleep apnea 22461369 G47 .30 CPAP Acid reflux 747654879 K2 1.9 famotidine 20 mg po daily. Hyperparathyroidism 6699 9008 E21.3 referred to endo, but patient cancelled. Osteoporosis 97983702 M8 1.0 alendronat e 70 mg po weekly pt stopped. Wants to follow Dr. Sims holistic provider and be on vitamins.M eloxicam 15 mg po daily.Tram adol 50 mg po tid prn- pt trying to wean off. Not able to yet- trying to lose weight. Essential hypertension 70297056 I10 amlodipine 5 mg po daily.ASA 81 mg po dailyLosar puckett 100 mg po daily.tria mterene 37.5 mg-hctz25 mg po daily. (this can increase gout flare, so pt monitoring ) Migraine without aura 56 137203 G43.009 Hyperlipidemia 08467029 E78.5 Low fat diet. Statins cause pain. 02/27/22 last lab result. Anxiety 27283559 F41.9 Obese 068802331 E66.9 Diet and exercise. Lumbar spondylosis 87643 0009 M47.896 Osteoarthr itis of knee 543454984 M17.9 [id number] Michael Faye MD [address] [address] 06/18/2023 16:09:07 06/18/2023 17:00:32 Seen in emergency clinic 272872294 Z76.89 Recent ED records reviewed. 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 E83.52 Essential hypertension 40675949 I10 [id number] LILLY Beltran [address] [address] 11/09/2023 14:20:26 11/09/2023 15:06:36 Pain of right knee joint 9878760040 31717 M25.561 Hypercalcemia 08426769 E 83.52 [id number] Michael Faye MD [address] [address] 12/22/2023 09:14:13 12/22/2023 09:30:39 [id number] Michael Faye MD [address] [address] 12/30/2023 09:42:46 12/30/2023 10:33:19 Hypertensive disorder 09436977 I10 Gouty arthropathy 430852 008 M10.09 Depressive disorder 3548 9007 F32.A Polyarthropathy 63424931 M13.0 Obesity 155520901 E66.9 Osteoporosis 53366617 M8 1.0 Obstructiv e sleep apnea syndrome 59016917 G47.33 Hyperlipidemia 13238864 E78.5 Liver enzy mes level above reference range 969791094 R74.01 Idiopathic hypercalcemia 262260179 E83.52 Osteoarthr itis of knee 511385618 M17.9 [id number] Michael Faye MD [facility] [address] 03/31/2024 09:38:14 03/31/2024 10:14:55 Idiopathic hypercalcemia 936177855 E83.52 Gouty arthropathy 102592 008 M10.09 Hypertensive disorder 38 951563 I10 Depressive disorder 3548 9007 F32.A Polyarthropathy 69405009 M13.0 Obesity 781768064 E66.9 Osteoporosis 28566167 M8 1.0 Obstructiv e sleep apnea syndrome 08770187 G47.33 Hyperlipidemia 00304115 E78.5 Liver enzy mes level above reference range 617310229 R74.01 Osteoarthr itis of knee 088400660 M17.9 [id number] LILLY Beltran [address] [address] 06/15/2024 10:16:28 06/15/2024 10:56:03 Acute urinary tract infection 132208631 N39.0 hx of sepsis related to UTI Health Concerns Section Related Observation LastModified by Organization Detai ls LastModified Time None Recorded Concern Status LastModified by Organization Details LastModified Time None Recorded Advance Directives Directive Y: Payers Encounter Date Sequence Insurance Name Policy Number Policy Dunham Covered Member ID Dunham Member ID Guarantor Name 11/09/2023 1 [facility] (MEDICARE REPLACEMENT/A DVANTAGE - HMO) [id number] Rody Monson [id number] Rody Monson 12/22/2023 1 [facility] (MEDICARE REPLACEMENT/A DVANTAGE - HMO) [id number] Rody Monson [id number] Rody Monson 12/30/2023 1 [facility] (MEDICARE REPLACEMENT/A DVANTAGE - HMO) [id number] Rody Monson [id number] Rody Monson 03/31/2024 1 [facility] (MEDICARE REPLACEMENT/A DVANTAGE - HMO) [id number] Rody Monson [id number] Rody Monson 06/15/2024 1 [facility] (MEDICARE REPLACEMENT/A DVANTAGE - HMO) [id number] Rody Monson [id number] Rody Monson Notes Date Note Type Note [...] prior knee replacement. With Dr. Johnston at [facility] Concerns with hypercalcemia, would like PTH checked with next labs. LILLY Beltran [address] [facility], [place], [address], [place] 11/09/2023 15:03:36 12/30/2023 text/html Pt is here for f /u on her lab and chronic conditions. Doing overall well. Denies any problem with meds. Denies any new concern. Pt has chronic multiple joints pain and morning stiffness and is on Tramadol and Meloxicam for it. Pt has not seen any specialist for this in the past. Michael Faye MD [address] [facility], [facility] [address], [place], [address], [place] 12/30/2023 10:19:23 03/31/2024 text/html Pt is here [...] supplements by them. Michael Faye MD [address] [facility], [address], [place], [address], [place] 03/31/2024 10:12:43 06/15/2024 text/html Rody Monson is a 68 year old female patient here today for urinary concerns She states she gets UTIs frequently She noticed blood in her urine last night, pelvic pain, pressure, urgency Nicole Mckeon, [employer] [address] [facility], [facility] [address], [place], [address], [place] [facility] 06/15/2024 10:51:32 OBGyn Episode No OBEpisode recorded.
--- OUTSIDE RECORDS SUMMARY | 2024-06-19 11:11 | XMS_ITS | Continuity of Care Document ---
Author Organization [facility] Address [address] [place] [address] Phone Care Team Providers Care Solar Crew Member Name Role Phone Tomas Clayton Unavailable Unavailable Procedures Procedure Date Eye Exam Established Pt Ophthalmoscopy, Subsequent Office Consultation Ophthalmoscopy Advance Directives Directive Yes / No Effective Date File Name No Information Encounters Encounter Description Practice Location Reason(s) For Visit Diagnoses Date Provider Providers Copied on Encounter [facility], [address] [place] [address] [address], [place], [place], [id number], tel:[phone] [facility] No Information [address] [place], [place], [facility], . [phone] Referring Provider: Tomas Berg, [address] [place], [place], [facility]. tel:[phone] Office Consultation [facility], [address] [place] [address] [address], [place], [place], [id number], tel:[phone] [facility] No Information [address] [place], [place], [facility], [place]. tel:[phone] Referring Provider: Marcio Lagunas, [address], [place], [place], [facility]. tel:[phone] Family History Family Member Type Diagnosis Age [...]
--- OUTSIDE RECORDS SUMMARY | 2024-06-19 11:11 | XMS_ITS | Clinical Summary ---
Author Organization [facility] Address [address] [address] Phone Care Team Providers Care General Farm Hand Name Role Phone Daly Pinto NP Primary Care Provider [phone] Allergies Active Allergy Reactions Criticality Noted Date [...] Influenza (IM) Preservative Free 03/24/2014 Influenza Recombinant Frdea valent Injectable Preservative Free 02/22/2019 Influenza TIV [...] 02/12/2018, 04/28/2016, Additional history exists Care Teams General Farm Hand Relationship Specialty Start Date End Date Daly Pinto NP [address] [address] PCP - General Family Medicine 10/19/18
--- OUTSIDE RECORDS SUMMARY | 2024-06-19 11:11 | XMS_ITS | Patient Health Summary ---
Author Organization [facility] Address [address] [place] [address] Care Team Providers Care Financial Foundations Representative Name Role Phone Fabiola Melo MD Unavailable [phone] Brittany Elias MD Primary Care Provider Note from [facility],non-owned Affiliates and Associated Physician Practices is amultiple site organization consisting of ambulatory clinics and hospital sitesin [place], [place], [place] and [place]. This disclosure is being madepursuant to the Care Everywhere program and may not contain all information available regarding this patient. Last updated 18.[facility] Allergies * Sulfa Drugs Medications * Be [...] fluticasone propionate (FLONASE) 50 MCG/ACT nasal spray [place] 2 sprays into each nostril nightly as [...] AM CDT Medical Devices Implanted Type Area Electromyographic Technician Device Identifier Shelf Expiration Date Model / Serial / Lot Cmnt Bone Cblt 40gm Hvisc Strl Implanted:Qty: 1 on 02/11/2018 by Toño Johnston MD at [facility] Left: Knee [employer] 02/21/2019 600-15-000 / / [id number] Cmpnt Ptlr 28mm 1 Pg Wire Ascnt Arcm Kn Implanted:Qty: 1 on 02/11/2018 by Toño Johnston MD at [facility] Left: Knee [employer] 01/29/2023 [id number] / / [id number] Tray Tib 71mm Kn Cocr I Beam Implanted:Qty: 1 on 02/11/2018 by Toño Johnston MD at [facility] Left: Knee [employer] 12/02/2027 [id number] / / [id number] Cmpnt Fem Kn Lt Cr Cmnt Prm Vngrd Intlk Implanted:Qty: 1 on 02/11/2018 by Toño Johnston MD at [facility] Left: Knee [employer] 10/21/2027 [id number] / / [id number] Brng [id number] Vngrd Arcm Kn Ant Stab Implanted:Qty: 1 on 02/11/2018 by Toño Johnston MD at [facility] Left: Knee [employer] 12/22/2022 [id number] / / [id number] Procedures * XR KNEE BILAT 3VW(Performed 02/28/2019) [...] Computed Radiogr aphy Narrative 04/07/2018 12:19 PM MOTOR HOTEL MANAGER Santa Fuller, RT(R) ? 04/07/2018 12:19 PM [...] - HEMATOLOGY ORD ERABLES Performing Organization Address [facility] Co de Phone Number [facility] [address] [place] [address] * STREP A SCREEN DIRECT W RFLX STREP A CULTURE (02/13/2018 12:08 AM CDT) Strep A Rapid Negative Negative 02/13/2018 12:43 AM CDT [facility] Microbiology ENTIRE THROAT (SURFACE REGION OF NECK) / Unknown Collection / Unknown 02/13/2018 12:08 AM CDT 02/13/2018 12:21 AM CDT Narrative [facility] - 02/13/2018 12:43 AM CDT Test has reflexed to a Strep A culture. Luis Carlos Palmer [facility] - MICROBIO LOGY ORDERABLES Performing Organization Address [facility] Co de Phone Number [facility] [address] [place] [address] * CULTURE STREP GROUP A (02/13/2018 12:08 AM CDT) Culture Negative for beta-hemolytic Streptococcus Group A MARY BETH 02/15/2018 6:21 AM CDT [facility] Microbiology ENTIRE THROAT (SURFACE REGION OF NECK) / Unknown Collection / Unknown 02/13/2018 12:08 AM CDT 02/13/2018 12:21 AM CDT Luis Carlos Palmer [facility] - MICROBIO LOGY ORDERABLES Performing Organization Address City/[facility] Co de Phone Number [facility] [address] [place] [address], [facility] [phone] * CULTURE MSSA/MRSA (01/18/2018 8:27 AM CDT) Culture Negative for Staphylococcus aureus (MRSA/MSSA) MARY BETH 01/20/2018 1:25 PM CDT [facility] Microbiology SPECIMEN FROM NASAL FOSSAE / Unknown Collection / Unknown 01/18/2018 8:27 AM CDT 01/18/2018 11:19 AM CDT Toño Johnston MD LAB - MICROBIOLOGY O RDERABLES [facility] [address] [place] [address], [facility] [phone] * CBC W AUTO DIFFERENTIAL (01/18/2018 8:27 [...] - 6.0 % 01/18/2018 11:25 AM CDT [facility] Basophils % 1.4 0.0 - 2.0 % 01/18/2018 11:25 AM CDT [facility] Immature Granulocytes 1.0 0 - 1 % 01/18/2018 11:25 AM CDT [facility] Neutrophil Absolute 2.91 2.01 - 7.14 x10E9/L 01/18/2018 11:25 AM CDT [facility] Lymphocytes Absolute 1.83 1.07 - 3.94 x10E9/L 01/18/2018 11:25 AM CDT [facility] Monocytes Absolute 0.69 0.26 - 1.07 x10E9/L 01/18/2018 11:25 AM CDT [facility] Eosinophils Absolute 0.25 0 - 0.47 x10E9/L 01/18/2018 11:25 AM CDT [facility] Basophils Absolute 0.08 0 - 0.08 x10E9/L 01/18/2018 11:25 AM CDT [facility] Immature Granulocytes Absolute 0.06 0.00 - 0.06 x10E9/L 01/18/2018 11:25 AM CDT [facility] nRBC Auto 0 /100 WBC 01/18/2018 11:25 AM CDT [facility] Blood BLOOD SPECIMEN / Unknown Venipuncture / Unknown 01/18/2018 8:27 AM CDT 01/18/2018 11:21 AM CDT Toño Johnston MD LAB - HEMATOLOGY ORD ERABLES [facility] [address] [place] [address] * (ABNORMAL) COMPREHENSIVE METABOLIC PANEL (01/18/2018 8:27 AM CDT) [facility] Glucose 97 74 - 106 mg/dL 01/18/2018 11:40 AM CDT [facility] Sodium 137 136 - 145 mmol/L 01/18/2018 11:40 AM CDT [facility] Potassium 4.5 3.5 - 5.1 mmol/L 01/18/2018 11:40 AM CDT [facility] Chloride 103 98 - 107 mmol/L 01/18/2018 11:40 AM CDT [facility] CO2 28 22 - 31 mmol/L 01/18/2018 11:40 AM CDT [facility] Calcium 10.7(H) 8.5 - 10.1 mg/dL 01/18/2018 11:40 AM CDT [facility] Anion Gap 6(L) 8 - 16 mmol/L 01/18/2018 11:40 AM CDT [facility] BUN 21 7 - 21 mg/dL 01/18/2018 11:40 AM CDT [facility] Creatinine 1.00 0.50 - 1.30 mg/dL 01/18/2018 11:40 AM CDT [facility] Alkaline Phosphatase 57 38 - 126 U/L 01/18/2018 11:40 AM CDT [facility] ALT 37 13 - 61 U/L 01/18/2018 11:40 AM CDT [facility] AST 18 5 - 40 U/L 01/18/2018 11:40 AM CDT [facility] Protein Total 7.5 6.4 - 8.2 gm/dL 01/18/2018 11:40 AM CDT [facility] Albumin 4.0 3.4 - 5.0 gm/dL 01/18/2018 11:40 AM CDT [facility] Bilirubin Total 0.6 0.2 - 1.0 mg/dL 01/18/2018 11:40 AM CDT [facility] eGFR by MDRD 56(L) >60 mL/min/1.7 3m2 01/18/2018 11:40 AM CDT [facility] eGFR by MDRD >60 >60 mL/min/1.7 3m2 01/18/2018 11:40 AM CDT [facility] Blood BLOOD SPECIMEN / Unknown Venipuncture / Unknown 01/18/2018 8:27 AM CDT 01/18/2018 11:21 AM CDT Toño Johnston MD LAB - CHEMISTRY MORA Velasquez Organization Address City/State/ZIP Co de Phone Number [facility] [address] [place] [address] * EKG 12-LEAD (01/18/2018 8:16 AM CDT) Ventricular Rate 58 BPM [facility] Atrial Rate 58 BPM [facility] P-R Interval 208 ms [facility] QRS Duration ms 102 ms [facility] Q-T Interval ms 414 ms [facility] QTC Calculation (Bezet) 406 ms [facility] Calculated P [place] 0 degrees [facility] Calculated R [place] -14 degrees [facility] Calculated T [place] 49 degrees [facility] Interpretation EKG Sinus bradycardia Otherwise normal ECG No previous ECGs available Confirmed by MARY RODRIGUEZ, TRENT ([id number]) on 01/19/2018 9:04:24 AM [facility] 01/18/2018 8:16 AM CDT 01/19/2018 9:04 AM CDT Toño Johnston MD ECG ORDERABLES [facility] Care Teams Financial Foundations Representative Relationship Specialty Start Date End Date Brittany Elias MD [address] [place] [address] [address] [place] [phone] PCP - General 05/26/19 [place] [address] [place] [address] Orthopedic Surgery 06/06/14
[2024-06-19 11:15] VITALS: BP 221/117; PULSE 100; RESP 16; TEMP 36.8; O2SAT 100
[2024-06-19 11:38] LABS: Basophils Absolute Auto 0.1 K/mm3 (0.0-0.1); Basophils Percent Auto 0.6 % (0.2-1.2); Eosinophils Absolute Auto 0.2 K/mm3 (0-0.3); Eosinophils Percent Auto 1.4 % (0-4.4); Hemoglobin 12.9 g/dL (12.0-15.0); Immature Granulocyte Absolute 0.22 K/mm3 (0.00-0.031); Immature Granulocyte Percent A 1.7 % (0-0.5); Lymphocytes Absolute Auto 3.77 K/mm3 (0.9-3.2); Mean Corpuscular HGB Conc 33.9 g/dl (32-36); Mean Corpuscular Hemoglobin 32.5 pg (26-34); Mean Corpuscular Volume 95.7 fl (80-100); Mean Platelet Volume 10.3 fl (7.4-10.4); Monocytes Absolute Auto 0.8 K/mm3 (0.1-0.6); Monocytes Percent Auto 6.7 % (2.6-8.5); Neutrophils Absolute Auto 7.5 K/mm3 (1.3-6.7); Neutrophils Percent Auto 59.6 % (45.5-73.1); Nucleated Red Blood Cells Perc 0.3 % (0.0-0.2); Platelet Count Result 243 k/mm3 (150-375); Red Blood Count 3.97 M/mm3 (4.2-5.4); Red Cell Distribution Width 14.3 % (11.5-14.5); White Blood Count 12.6 K/mm3 (4.5-10.0)
[2024-06-19 11:48] LABS: Prothrombin Time 13.7 Seconds (11.1-14.7)
[2024-06-19 11:49] LABS: Alanine Aminotransferase 43 U/L (6-35); Albumin Level 4.6 g/dL (3.5-5.1); Alkaline Phosphatase 62 U/L (38-126); Anion Gap 10 mmol/L (4-12); Aspartate Amino Transferase 23 U/L (14-36); Bilirubin,Total 0.8 mg/dL (0.2-1.3); Blood Urea Nitrogen 25 mg/dL (7-17); Calcium 11.3 mg/dL (8.4-10.2); Carbon Dioxide 27 mmol/L (22-30); Chloride 97 mmol/L (98-107); Estimated CRCL calculation 68 ml/min; Estimated Glomerular Filt Rate > 60; Glucose 87 mg/dL (65-110); Lipase 177 U/L (23-300); Potassium 3.7 mmol/L (3.4-5.0); Sodium 134 mmol/L (137-145)
[2024-06-19 11:50] LABS: Partial Thromboplastin Time 22.6 Seconds (22.3-36.8)
[2024-06-19 12:01] LABS: Troponin I < 0.012 ng/mL (0.000-0.034)
--- OUTSIDE RECORDS SUMMARY | 2024-06-19 14:18 | XMS_ITS | Clinical Summary ---
Author Organization [facility] Address [address] [place] [address]. [place] [address] [place] [address] Care Team Providers Care Chemical Strength Tester Name Role Phone Unavailable Primary Care Provider [...]
--- OUTSIDE RECORDS SUMMARY | 2024-06-19 14:18 | XMS_ITS | Clinical Summary ---
Author Organization [facility] Address [address] [place] [address] Phone Care Team Providers Care Regulatory Leader Name Role Phone Daly Pinto FINISHED METAL REPAIRER, HOUSEHOLD COORDINATOR Primary Care Pro vider Medications Aspirin 81 [...] Comments Blood Pressure 130/86 04/08/2019 8:56 AM DEGREASING WHEEL OPERATOR Pulse 70 04/08/2019 8:56 AM DEGREASING WHEEL OPERATOR Temperature - - Respiratory Rate - - Oxygen Saturation 98% 04/08/2019 8:56 AM DEGREASING WHEEL OPERATOR Inhaled Oxygen Concentration - - Weight 108 kg (238 lb) 04/08/2019 8:56 AM DEGREASING WHEEL OPERATOR Height 160 cm (5' 3 ) 04/08/2019 8:56 AM DEGREASING WHEEL OPERATOR Body Mass Index 42.16 04/08/2019 8:56 AM DEGREASING WHEEL OPERATOR Plan of Treatment Health Maintenance Due Date [...] Most Recently Relevant to Health Maintenance Insurance [facility] Care Teams Regulatory Leader Relationship Specialty Start Date End Date Daly Pinto APRN, HOUSEHOLD COORDINATOR [address] [place] [address] PCP - General Certified Nurse Practitioner 11/02/18
--- OUTSIDE RECORDS SUMMARY | 2024-06-19 14:18 | XMS_ITS | Patient Health Summary ---
Author Organization [facility] Address [address] [facility] [place] [address] Care Team Providers Care Linter Saw Sharpener Name Role Phone Fabiola Melo MD Unavailable [phone] Brittany Elias MD Primary Care Provider [phone] Note from [facility],non-owned Affiliates and Associated Physician Practices is amultiple site organization consisting of ambulatory clinics and hospital sitesin [place], [place], [place] and [place]. This disclosure is being madepursuant to the Care Everywhere program and may not contain all information available regarding this patient. Last updated 18.[facility] Allergies * Sulfa Drugs Medications [...] fluticasone propionate (FLONASE) 50 MCG/ACT nasal spray [place] 2 sprays into each nostril nightly as [...] AM CDT Medical Devices Implanted Type Area Remediation Technician Device Identifier Shelf Expiration Date Model / Serial / Lot Cmnt Bone Cblt 40gm Hvisc Strl Implanted:Qty: 1 on 02/11/2018 by Toño Johnston MD at [facility] Left: Knee [employer] 02/21/2019 600-15-000 / / [id number] Cmpnt Ptlr 28mm 1 Pg Wire Ascnt Arcm Kn Implanted:Qty: 1 on 02/11/2018 by Toño Johnston MD at [facility] Left: Knee [employer] 01/29/2023 [id number] / / [id number] Tray Tib 71mm Kn Cocr I Beam Implanted:Qty: 1 on 02/11/2018 by Toño Johnston MD at [facility] Left: Knee [employer] 12/02/2027 [id number] / / [id number] Cmpnt Fem Kn Lt Cr Cmnt Prm Vngrd Intlk Implanted:Qty: 1 on 02/11/2018 by Toño Johnston MD at [facility] Left: Knee [employer] 10/21/2027 [id number] / / [id number] Brng [id number] Vngrd Arcm Kn Ant Stab Implanted:Qty: 1 on 02/11/2018 by Toño Johnston MD at [facility] Left: Knee [employer] 12/22/2022 [id number] / / [id number] Procedures * XR KNEE BILAT 3VW(Performed 02/28/2019) [...] Computed Radiogr aphy Narrative 04/07/2018 12:19 PM NURSE ESTHETICIAN Santa Fuller, RT(R) ? 04/07/2018 12:19 PM [...] - HEMATOLOGY ORD ERABLES Performing Organization Address [facility] Co de Phone Number [facility] [address] [place] [address] * STREP A SCREEN DIRECT W RFLX STREP A CULTURE (02/13/2018 12:08 AM CDT) Strep A Rapid Negative Negative 02/13/2018 12:43 AM CDT [facility] Microbiology ENTIRE THROAT (SURFACE REGION OF NECK) / Unknown Collection / Unknown 02/13/2018 12:08 AM CDT 02/13/2018 12:21 AM CDT Narrative [facility] - 02/13/2018 12:43 AM CDT Test has reflexed to a Strep A culture. Luis Carlos Palmer [facility] - MICROBIO LOGY ORDERABLES Performing Organization Address [facility] Co de Phone Number [facility] [address] [place] [address] * CULTURE STREP GROUP A (02/13/2018 12:08 AM CDT) Culture Negative for beta-hemolytic Streptococcus Group A MARY BETH 02/15/2018 6:21 AM CDT [facility] Microbiology ENTIRE THROAT (SURFACE REGION OF NECK) / Unknown Collection / Unknown 02/13/2018 12:08 AM CDT 02/13/2018 12:21 AM CDT Luis Carlos Palmer [facility] - MICROBIO LOGY ORDERABLES Performing Organization Address City/[facility] Co de Phone Number [facility] [address] [place] [address], [facility] [phone] * CULTURE MSSA/MRSA (01/18/2018 8:27 AM CDT) Culture Negative for Staphylococcus aureus (MRSA/MSSA) MARY BETH 01/20/2018 1:25 PM CDT [facility] Microbiology SPECIMEN FROM NASAL FOSSAE / Unknown Collection / Unknown 01/18/2018 8:27 AM CDT 01/18/2018 11:19 AM CDT Toño Johnston MD LAB - MICROBIOLOGY O RDERABLES [facility] [address] [place] [address], [facility] [phone] * CBC W AUTO DIFFERENTIAL (01/18/2018 8:27 [...] - 6.0 % 01/18/2018 11:25 AM CDT [facility] Basophils % 1.4 0.0 - 2.0 % 01/18/2018 11:25 AM CDT [facility] Immature Granulocytes 1.0 0 - 1 % 01/18/2018 11:25 AM CDT [facility] Neutrophil Absolute 2.91 2.01 - 7.14 x10E9/L 01/18/2018 11:25 AM CDT [facility] Lymphocytes Absolute 1.83 1.07 - 3.94 x10E9/L 01/18/2018 11:25 AM CDT [facility] Monocytes Absolute 0.69 0.26 - 1.07 x10E9/L 01/18/2018 11:25 AM CDT [facility] Eosinophils Absolute 0.25 0 - 0.47 x10E9/L 01/18/2018 11:25 AM CDT [facility] Basophils Absolute 0.08 0 - 0.08 x10E9/L 01/18/2018 11:25 AM CDT [facility] Immature Granulocytes Absolute 0.06 0.00 - 0.06 x10E9/L 01/18/2018 11:25 AM CDT [facility] nRBC Auto 0 /100 WBC 01/18/2018 11:25 AM CDT [facility] Blood BLOOD SPECIMEN / Unknown Venipuncture / Unknown 01/18/2018 8:27 AM CDT 01/18/2018 11:21 AM CDT Toño Johnston MD LAB - HEMATOLOGY ORD ERABLES [facility] [address] [place] [address] * (ABNORMAL) COMPREHENSIVE METABOLIC PANEL (01/18/2018 8:27 AM CDT) [facility] Glucose 97 74 - 106 mg/dL 01/18/2018 11:40 AM CDT [facility] Sodium 137 136 - 145 mmol/L 01/18/2018 11:40 AM CDT [facility] Potassium 4.5 3.5 - 5.1 mmol/L 01/18/2018 11:40 AM CDT [facility] Chloride 103 98 - 107 mmol/L 01/18/2018 11:40 AM CDT [facility] CO2 28 22 - 31 mmol/L 01/18/2018 11:40 AM CDT [facility] Calcium 10.7(H) 8.5 - 10.1 mg/dL 01/18/2018 11:40 AM CDT [facility] Anion Gap 6(L) 8 - 16 mmol/L 01/18/2018 11:40 AM CDT [facility] BUN 21 7 - 21 mg/dL 01/18/2018 11:40 AM CDT [facility] Creatinine 1.00 0.50 - 1.30 mg/dL 01/18/2018 11:40 AM CDT [facility] Alkaline Phosphatase 57 38 - 126 U/L 01/18/2018 11:40 AM CDT [facility] ALT 37 13 - 61 U/L 01/18/2018 11:40 AM CDT [facility] AST 18 5 - 40 U/L 01/18/2018 11:40 AM CDT [facility] Protein Total 7.5 6.4 - 8.2 gm/dL 01/18/2018 11:40 AM CDT [facility] Albumin 4.0 3.4 - 5.0 gm/dL 01/18/2018 11:40 AM CDT [facility] Bilirubin Total 0.6 0.2 - 1.0 mg/dL 01/18/2018 11:40 AM CDT [facility] eGFR by MDRD 56(L) >60 mL/min/1.7 3m2 01/18/2018 11:40 AM CDT [facility] eGFR by MDRD >60 >60 mL/min/1.7 3m2 01/18/2018 11:40 AM CDT [facility] Blood BLOOD SPECIMEN / Unknown Venipuncture / Unknown 01/18/2018 8:27 AM CDT 01/18/2018 11:21 AM CDT Toño Johnston MD LAB - CHEMISTRY MORA Velasquez Organization Address City/State/ZIP Co de Phone Number [facility] [address] [place] [address] * EKG 12-LEAD (01/18/2018 8:16 AM CDT) Ventricular Rate 58 BPM [facility] Atrial Rate 58 BPM [facility] P-R Interval 208 ms [facility] QRS Duration ms 102 ms [facility] Q-T Interval ms 414 ms [facility] QTC Calculation (Bezet) 406 ms [facility] Calculated P [place] 0 degrees [facility] Calculated R [place] -14 degrees [facility] Calculated T [place] 49 degrees [facility] Interpretation EKG Sinus bradycardia Otherwise normal ECG No previous ECGs available Confirmed by MARY RODRIGUEZ, TRENT ([id number]) on 01/19/2018 9:04:24 AM [facility] 01/18/2018 8:16 AM CDT 01/19/2018 9:04 AM CDT Toño Johnston MD ECG ORDERABLES [facility] Care Teams Linter Saw Sharpener Relationship Specialty Start Date End Date Brittany Elias MD [address] [place] [address] [address] [place] [phone] PCP - General 05/26/19 [place] [address] [place] [address] Orthopedic Surgery 06/06/14
--- OUTSIDE RECORDS SUMMARY | 2024-06-19 14:18 | XMS_ITS | Referral Summary ---
Author Organization [facility] Address [address] [place] [place] [address] Care Team Providers Care Hand I Blocker Name Role Phone Fabiola Melo MD Unavailable [phone] Brittany Elias MD Primary Care Provider Source Comments [facility],non-owned Affiliates and Associated Physician Practices is amultiple site organization consisting of ambulatory clinics and hospital sitesin [place], [place], [place] and [place]. This disclosure is being madepursuant to the Care Everywhere program and may not contain all information available regarding this patient. Last updated 18.[facility] Allergies Active Allergy Reactions Criticality Noted [...] fluticasone propionate (FLONASE) 50 MCG/ACT nasal spray [place] 2 sprays into each nostril nightly as [...] on file Medical Devices Implanted Type Area Methodologist Device Identifier Shelf Expiration Date Model / Serial / Lot Cmnt Bone Cblt 40gm Hvisc Strl Implanted:Qty: 1 on 02/11/2018 by Toño Johnston MD at [facility] Left: Knee [employer] 02/21/2019 600-15-000 / / [id number] Cmpnt Ptlr 28mm 1 Pg Wire Ascnt Arcm Kn Implanted:Qty: 1 on 02/11/2018 by Toño Johnston MD at [facility] Left: Knee [employer] 01/29/2023 [id number] / / [id number] Tray Tib 71mm Kn Cocr I Beam Implanted:Qty: 1 on 02/11/2018 by Toño Johnston MD at [facility] Left: Knee [employer] 12/02/2027 [id number] / / [id number] Cmpnt Fem Kn Lt Cr Cmnt Prm Vngrd Intlk Implanted:Qty: 1 on 02/11/2018 by Toño Johnston MD at [facility] Left: Knee [employer] 10/21/2027 [id number] / / [id number] Brng [id number] Vngrd Arcm Kn Ant Stab Implanted:Qty: 1 on 02/11/2018 by Toño Johnston MD at [facility] Left: Knee [employer] 12/22/2022 [id number] / / [id number] Procedures Procedure Name Priority Date/Time Associated Diagnosis Comments COMPREHENSIVE METABOLIC PANEL Routine 01/18/2018 8:27 AM CDT Preop examination from Last 3 Months or Most Recently Relevant to Health Maintenance Results * (ABNORMAL) COMPREHENSIVE METABOLIC PANEL (01/18/2018 8:27 AM CDT) [facility] Glucose 97 74 - 106 mg/dL 01/18/2018 11:40 AM CDT [facility] Sodium 137 136 - 145 mmol/L 01/18/2018 11:40 AM CDT [facility] Potassium 4.5 3.5 - 5.1 mmol/L 01/18/2018 11:40 AM CDT [facility] Chloride 103 98 - 107 mmol/L 01/18/2018 11:40 AM CDT [facility] CO2 28 22 - 31 mmol/L 01/18/2018 11:40 AM CDT [facility] Calcium 10.7(H) 8.5 - 10.1 mg/dL 01/18/2018 11:40 AM CDT [facility] Anion Gap 6(L) 8 - 16 mmol/L 01/18/2018 11:40 AM CDT [facility] BUN 21 7 - 21 mg/dL 01/18/2018 11:40 AM CDT [facility] Creatinine 1.00 0.50 - 1.30 mg/dL 01/18/2018 11:40 AM CDT [facility] Alkaline Phosphatase 57 38 - 126 U/L 01/18/2018 11:40 AM CDT [facility] ALT 37 13 - 61 U/L 01/18/2018 11:40 AM CDT [facility] AST 18 5 - 40 U/L 01/18/2018 11:40 AM CDT [facility] Protein Total 7.5 6.4 - 8.2 gm/dL 01/18/2018 11:40 AM CDT [facility] Albumin 4.0 3.4 - 5.0 gm/dL 01/18/2018 11:40 AM CDT [facility] Bilirubin Total 0.6 0.2 - 1.0 mg/dL 01/18/2018 11:40 AM CDT [facility] eGFR by MDRD 56(L) >60 mL/min/1.7 3m2 01/18/2018 11:40 AM CDT [facility] eGFR by MDRD >60 >60 mL/min/1.7 3m2 01/18/2018 11:40 AM CDT [facility] Blood BLOOD SPECIMEN / Unknown Venipuncture / Unknown 01/18/2018 8:27 AM CDT 01/18/2018 11:21 AM CDT Toño Johnston MD LAB - CHEMISTRY MORA PERRIN [facility] Organization Address City/State/ZIP Co de Phone Number [facility] [address] [place] [address] from Last 3 Months or Most Recently Relevant to Health Maintenance Administered Medications Advance Directives * Full Code (Latest Code Status on File) Date Activated Date Inactivated Comments 02/11/2018 11:11 AM 02/14/2018 1:10 PM Care Teams Hand I Blocker Relationship Specialty Start Date End Date Brittany Elias MD [address] [place] [phone] PCP - General 05/26/19 [place] [address] [address] Orthopedic Surgery 06/06/14
--- OUTSIDE RECORDS SUMMARY | 2024-06-19 14:18 | XMS_ITS | Clinical Summary ---
Author Organization [facility] Address [address] [place] [address] Care Team Providers Care Agricultural Purchasing Agent Name Role Phone Fabiola Melo MD Unavailable [phone] Brittany Elias MD Primary Care Provider [phone] Source Comments [facility],non-owned Affiliates and Associated Physician Practices is amultiple site organization consisting of ambulatory clinics and hospital sitesin [place], [place], [place] and [place]. This disclosure is being madepursuant to the Care Everywhere program and may not contain all information available regarding this patient. Last updated 18.[facility] [employer] Allergies Active Allergy Reactions Criticality Noted Date [...] fluticasone propionate (FLONASE) 50 MCG/ACT nasal spray [place] 2 sprays into each nostril nightly as [...] this topic Medical Devices Implanted Type Area Sizing Sponger Device Identifier Shelf Expiration Date Model / Serial / Lot Cmnt Bone Cblt 40gm Hvisc Strl Implanted:Qty: 1 on 02/11/2018 by Toño Johnston MD at [facility] Left: Knee [employer] 02/21/2019 600-15-000 / / [id number] Cmpnt Ptlr 28mm 1 Pg Wire Ascnt Arcm Kn Implanted:Qty: 1 on 02/11/2018 by Toño Johnston MD at [facility] Left: Knee [employer] 01/29/2023 [id number] / / [id number] Tray Tib 71mm Kn Cocr I Beam Implanted:Qty: 1 on 02/11/2018 by Toño Johnston MD at [facility] Left: Knee [employer] 12/02/2027 [id number] / / [id number] Cmpnt Fem Kn Lt Cr Cmnt Prm Vngrd Intlk Implanted:Qty: 1 on 02/11/2018 by Toño Johnston MD at [facility] Left: Knee [employer] 10/21/2027 [id number] / / [id number] Brng 90fvg10gh Vngrd Arcm Kn Ant Stab Implanted:Qty: 1 on 02/11/2018 by Toño Johnston MD at [facility] Left: Knee [employer] 12/22/2022 [id number] / / [id number] Procedures Procedure Name Priority Date/Time Associated Diagnosis [...] Johnston MD LAB - CHEMISTRY [facility] Organization Address City/State/ZIP Co de Phone Number [facility] [address] [place] [address] from Last 3 Months or Most Recently Relevant to Health Maintenance Advance Directives * Full Code (Latest Code Status on File) Date Activated Date Inactivated Comments 02/11/2018 11:11 AM 02/14/2018 1:10 PM Care Teams Agricultural Purchasing Agent Relationship Specialty Start Date End Date Brittany Elias MD [address] [place] [phone] PCP - General 05/26/19 [place] [address] [facility] [address] [place] [id number] Orthopedic Surgery 06/06/14
--- OUTSIDE RECORDS SUMMARY | 2024-06-19 14:18 | XMS_ITS | Clinical Summary ---
Author Organization [facility] Address [address], [place] [address] Phone Care Team Providers Care Flower Machine Operator Name Role Phone Daly Pinto NP Primary Care Provider [phone] Allergies Active Allergy Reactions Criticality Noted Date [...] 02/12/2018, 04/28/2016, Additional history exists Care Teams Flower Machine Operator Relationship Specialty Start Date End Date Daly Pinto NP [address] [phone] PCP - General Family Medicine 10/19/18
--- OUTSIDE RECORDS SUMMARY | 2024-06-19 14:18 | XMS_ITS | Continuity of Care Document ---
Author Organization [facility] Address [address] [place] [address] Phone Care Team Providers Care Solution Mixer Name Role Phone Tomas Clayton Unavailable Unavailable Procedures Procedure Date Eye Exam Established Pt Ophthalmoscopy, Subsequent Office Consultation Ophthalmoscopy Advance Directives Directive Yes / No Effective Date File Name No Information Encounters Encounter Description Practice Location Reason(s) For Visit Diagnoses Date Provider Providers Copied on Encounter [facility], [id number] [place] [address] [address], [place], [place], [id number], tel:[phone] [facility] No Information [address] [place], [place], [facility], . [phone] Referring Provider: Tomas Berg, [address], [place], [facility]. tel:[phone] Office Consultation [facility], [address] [place] [address] [address], [place], [place], [id number], tel:[phone] [facility] No Information [address] [place], [place], [facility], [place]. tel:[phone] Referring Provider: Marcio Lagunas, [address], [place], [place], [facility]. tel:[phone] Family History Family Member Type Diagnosis Age [...]
--- NOTE | 2024-06-19 14:28 | ECG_ITS ---
Test Date: 2024-06-19 14:47:37 Measurements Intervals Farner Rate: 77 P: 33 AR: 219 QRS: -27 QRSD: 104 T: 35 QT: 364 QTc: 414 Interpretive Statements SINUS RHYTHM WITH FIRST DEGREE AV BLOCK BORDERLINE LEFT AXIS DEVIATION [QRS AXIS < -20] Compared to ECG 06/19/2024 11:15:13 No significant changes Electronically Signed On 06-19-2024 22:01:44 HOLD WORKER by Alex Núñez M.D.
[2024-06-19 14:50] VITALS: BP 180/94; PULSE 88; PULSE 96; RESP 19; O2SAT 100; O2SAT 99
[2024-06-19] MEDS: diphenhydrAMINE HCl INJ 50 MG/ML VIAL 25 MG IV PUSH (14:53)
[2024-06-19 15:27] LABS: Troponin I < 0.012 ng/mL (0.000-0.034)
--- NOTE | 2024-06-19 15:42 | ED_ITS ---
HPI - Chest Pain General Chief Complaint: Chest Pain Stated Complaint: L chest pain, neck pain jaw pain L arm pain Time Seen by Provider: 06/19/24 13:59 History of Present Illness HPI narrative: Patient was here recently for allergic reactions and started on steroids; since then she has had some sensation of head fullness but this morning was feeling more energetic, doing some coffee, then the head fullness started feeling neck pain going down her neck, seemed like it was going to her left arm and chest and ear. Related Data Home Medications ?Medication ?Instructions ?Recorded ?Confirmed ?Last Taken ?Type aspirin 81 mg tablet,delayed 81 mg PO DAILY 05/10/19 04/20/22 Unknown History release (Aspir-) losartan 100 mg tablet 100 mg PO QAM 05/10/19 04/20/22 05/12/19 07:00 History alendronate 70 mg tablet 70 mg PO WEEKLY 09/09/22 Unknown History amlodipine 5 mg tablet 5 mg PO DAILY 09/09/22 Unknown History cetirizine 10 mg tablet (Allergy 10 mg PO DAILY PRN 09/09/22 Unknown History Relief (cetirizine)) famotidine 20 mg tablet 20 mg PO DAILY 09/09/22 Unknown History tramadol 50 mg tablet 50 mg PO Q6H PRN 09/09/22 Unknown History triamterene 37.5 1 cap PO DAILY 09/30/22 Unknown History mg-hydrochlorothiazide 25 mg capsule allopurinol 300 mg tablet 300 mg PO DAILY 10/22/23 Unknown History Allergies Allergy/AdvReac Type Severity Reaction Status Date / Time nitrofurantoin (From Allergy Severe Swelling Verified 06/19/24 14:46 Macrobid) Sulfa (Sulfonamide AdvReac Mild NAUSEA/VOMI Verified 06/19/24 14:46 Antibiotics) TING Review of Systems 2 Review of Systems: All systems reviewed & are unremarkable except as noted in HPI and below PMFSH Past Medical History Medical History Allergies Arthritis Functional dyspepsia GERD (gastroesophageal reflux disease) Hx of adenomatous polyp of colon Hx of renal calculi Hypertension Rosacea Sleep apnea Surgical History Surgical History H/O tubal ligation History of left knee replacement History of lithotripsy History of right oophorectomy Hx of section Hx of cholecystectomy Hx of colonoscopy Hx of esophagogastroduodenoscopy Family History Family History Mother Hypertension Father Cerebral aneurysm Other Breast cancer Social History Social History Smoking packs per day: 2 Smoking cigarettes per day: 40.0 Years smoked: 10 Smoking pack-years: 20.00 Smoking status: Former smoker Tobacco type: cigarettes Alcohol intake: current Drinks per week: 1 Substance use: never Lack of Transportation: No Lack of Food: Never True Current Housing: I Have Housing Concerned About Future Housing: No Difficulty Paying Gas/Electric Bills: No Difficulty Paying for Meds: No Currently Unemployed: No Education: Trade/Vocational Certificate Difficulty w/ Childcare or Family Care: No Exam 2 Narrative: EXAMINATION OF ORGAN SYSTEMS/BODY AREAS: Constitutional: Vital signs per nursing GENERAL:[No acute distress, non-toxic appearing.] HEAD: Normal with no signs of head trauma. EYES: EOMI, conjunctiva normal ENT: Hearing grossly intact LUNGS: Nonlabored breathing. CTAB HEART: [Regular rate and rhythm], normal peripheral pulses ABD: [Soft], [nontender to palpation] EXT: Normal range of motion SKIN: [No rashes or lesions.] NEURO: [Alert and oriented x 3. No gross focal sensory or strength deficits.] PSYCH: Normal affect Course Vital Signs Vital signs: Vital Signs Temperature 98.2 F 06/19/24 11:15 Pulse Rate 100 06/19/24 11:15 Respiratory Rate 16 06/19/24 11:15 Blood Pressure 221/117 H 06/19/24 11:15 Pulse Oximetry 100 06/19/24 11:15 Oxygen Delivery Room Air 06/19/24 11:15 Temperature 98.2 F 06/19/24 11:15 Pulse Rate 88 06/19/24 14:50 Respiratory Rate 19 06/19/24 14:50 Blood Pressure 180/94 H 06/19/24 14:50 Pulse Oximetry 100 06/19/24 14:50 Oxygen Delivery Room Air 06/19/24 14:50 MDM - Chest Pain MDM Narrative Medical decision making narrative: ED COURSE AND MEDICAL DECISION MAKINF presenting with chest pain. EKG done in triage negative for acute ischemic changes. Cardiac workup is initiated. EKG: Performed in triage and interpreted by me. Normal sinus rhythm. Rate 95. Normal axis. [place] 212. QRS duration normal. QTc normal. No pathologic Q waves. No ST segment elevation or depression to suggest acute ischemia. No RV strain pattern. Given her chest pain with the wrist in obtained to arm I did obtain a CTA which thankfully does not show any acute abnormality. Repeat EKG on my independent interpretation without any new changes, still sinus rhythm with rate 77, first-degree AV block, normal QRS, QTC, no ST elevations or depressions. HEART score is 3 with no acute ischemic changes on EKG and negative troponin making ACS unlikely. Patient declined viral swabs, I did give her a dose of Reglan with Benadryl and on re-evaluation her symptoms have resolved. On repeat evaluation just prior to discharge, the patient is no acute distress. I had a long discussion with the patient and with shared decision making, she is comfortable with outpatient management. She was given clear return instructions by myself in person as well as on discharge paperwork. At time of dc, BP was 146/79. Procedures: Pulse oximetry interpretation - not hypoxic. EKG interpretation. Review of medical records. Lab Data 06/19/24 11:32 06/19/24 11:32 Labs: Lab Results 06/19/24 06/19/24 Range/Units 11:32 14:45 WBC 12.6 H (4.5-10.0) K/mm3 RBC 3.97 L (4.2-5.4) M/mm3 Hgb 12.9 (12.0-15.0) g/dL Hct 38.0 (37.0-47.0) % MCV 95.7 (80-100) fl MCH 32.5 (26-34) pg MCHC 33.9 (32-36) g/dl RDW 14.3 (11.5-14.5) % Plt Count 243 (150-375) k/mm3 MPV 10.3 (7.4-10.4) fl Immature Gran % (Auto) 1.7 H (0-0.5) % Neut % (Auto) 59.6 (45.5-73.1) % Lymph % (Auto) 30.0 (18.3-44.2) % Dougherty % (Auto) 6.7 (2.6-8.5) % Eos % (Auto) 1.4 (0-4.4) % Baso % (Auto) 0.6 (0.2-1.2) % Lymph # (Auto) 3.77 H (0.9-3.2) K/mm3 Dougherty # (Auto) 0.8 H (0.1-0.6) K/mm3 Eos # (Auto) 0.2 (0-0.3) K/mm3 Baso # (Auto) 0.1 (0.0-0.1) K/mm3 Abs Immat Gran (auto) 0.22 H (0.00-0.031) K/mm3 Absolute Neuts (auto) 7.5 H (1.3-6.7) K/mm3 Absolute Nucleated RBC 0.040 H (0.0-0.012) K/mm3 Nucleated RBC % 0.3 H (0.0-0.2) % PT 13.7 (11.1-14.7) Seconds INR 1.0 APTT 22.6 (22.3-36.8) Seconds Sodium 134 L (137-145) mmol/L Potassium 3.7 (3.4-5.0) mmol/L Chloride 97 L (98-107) mmol/L Carbon Dioxide 27 (22-30) mmol/L Anion Gap 10 (4-12) mmol/L BUN 25 H (7-17) mg/dL Creatinine 0.80 (0.7-1.0) mg/dL Estim Creat Clear Calc 68 ml/min Estimated GFR > 60 (59 - ) Glucose 87 (65-110) mg/dL Calcium 11.3 H (8.4-10.2) mg/dL Total Bilirubin 0.8 (0.2-1.3) mg/dL AST 23 (14-36) U/L ALT 43 H (6-35) U/L Alkaline Phosphatase 62 (38-126) U/L Troponin I < 0.012 < 0.012 (0.000-0.034) ng/mL Total Protein 8.0 (6.3-8.2) g/dL Albumin 4.6 (3.5-5.1) g/dL Lipase 177 (23-300) U/L Discharge Plan Discharge Clinical Impression: Headache, Left shoulder pain Patient Disposition: Home, Self-Care Condition: Stable Instructions: Chest Pain (ED), Acute Headache (ED), Acute Neck Pain (ED) Additional Instructions: Please follow up with your doctor in the next 2-3 days; you can always return for any further issues especially if your symptoms return or worsen. Patient Language: Canadian Prescriptions: No Action alendronate 70 mg tablet 70 mg PO WEEKLY amlodipine 5 mg tablet 5 mg PO DAILY cetirizine [Allergy Relief (cetirizine)] 10 mg tablet 10 mg PO DAILY PRN famotidine 20 mg tablet 20 mg PO DAILY tramadol 50 mg tablet 50 mg PO Q6H PRN triamterene-hydrochlorothiazid 37.5-25 mg capsule 1 cap PO DAILY allopurinol 300 mg tablet 300 mg PO DAILY nystatin-triamcinolone 100,000-0.1 unit/g-% cream 1 applic topical BID Qty: 30 4RF Rx Instructions: apply a thin layer to affected area twice daily for 5 days. (vaginal labia) aspirin [Aspir-81] 81 mg Tablet,Delayed Release (Dr/Ec) 81 mg PO DAILY losartan 100 mg tablet 100 mg PO QAM epinephrine [EpiPen] 0.3 mg/0.3 mL auto-injector 0.3 mg IM ONCE Qty: 1 0RF Rx Instructions: as a single dose; may repeat once prednisone 50 mg tablet 50 mg PO DAILY 5 Days Qty: 5 0RF cyclobenzaprine 10 mg tablet 10 mg PO TID PRN (Reason: muscle spasm) Qty: 12 0RF naproxen 375 mg tablet 375 mg PO BID Qty: 14 0RF Follow-up/Referrals: Yunier,MD Michael [Primary Care Provider] - 2 Days
[2024-06-19 16:10] VITALS: BP 142/80; PULSE 89; RESP 18; O2SAT 98
== END 2024-06-19 16:11 | disposition home or self-care (01) ==
PROVIDERS: Emergency Medicine; Emergency Provider Emergency Medicine; PCP Family Medicine
DX: R51.9 Headache, unspecified (principal); M25.512 Pain in left shoulder; R07.9 Chest pain, unspecified; I10 Essential (primary) hypertension; G47.30 Sleep apnea, unspecified; M19.90 Unspecified osteoarthritis, unspecified site; K21.9 Gastro-esophageal reflux disease without esophagitis; Z96.652 Presence of left artificial knee joint; Z87.891 Personal history of nicotine dependence; Z86.0101 Personal history of adenomatous and serrated colon polyps; Z87.442 Personal history of urinary calculi; Z90.721 Acquired absence of ovaries, unilateral; Z90.49 Acquired absence of other specified parts of digestive tract; Z79.82 Long term (current) use of aspirin; Z79.899 Other long term (current) drug therapy; I44.0 Atrioventricular block, first degree
CPT/HCPCS: 36415; 71046; 71275; 80053; 83690; 84484; 85025; 85610; 85730; 93005; 96374; 96375; 99284; J1200; Q9967

== ENCOUNTER 2024-09-16 12:12 | Outpatient (CLI) | payer MEDICARE, SELFPAY ==
--- NOTE | ~2024-09-16 | NM_ITS ---
EXAMINATION: NM lasix renal scan DATE: 09/16/2024 13:54 INDICATION: Left hydronephrosis TECHNIQUE: 8.2 mCi Tc-99m MAG3 was administered IV. 40 mg furosemide was administered IV immediately afterward. The patient was scanned in the supine position. A posterior abdominal radionuclide angiog marty was obtained. A subsequent time course of static images of the kidneys, ureters, and bladder was obtained. COMPARISON: None FINDINGS: The posterior abdominal radionuclide angiogram and sequential static images show normal size, positio n, and morphology of the kidneys. Peak renal parenchymal uptake was 3.4 min in left kidney and 2.4 mi n in right kidney (normal peak 3-5 minutes). The relative early renal uptake was 52% on the left and 48% on the right (<40% is abnormal). No abnormalities of the ureters or bladder are seen. T1/2 for clearance of activity from the left kidney and proximal collecting system was 15 minutes. T1/2 for clearance of activity from the right kidney and proximal collecting system was 12 minutes. Notes on interpretation: T1/2 <10 minutes is normal, 10-15 minutes is low grade obstruction of questi onable clinical significance, 15-20 minutes is partial obstruction that is likely clinically signific ant, >20 minutes is high grade obstruction. Note that false positives may be seen with supine positio kayden, dehydration, severely dilated nonobstructed kidney, atonic collecting system, poor renal functi on, and chronic furosemide use. IMPRESSION: 1. Symmetric kidney function. 2. Mildly delayed activity clearance in both kidneys consistent with low-grade obstruction of questi onable clinical significance with differential including poor renal function, dehydration, chronic La six use or artifact of supine positioning. Reviewed, dictated and finalized at location A. IMPRESSION: 1. Symmetric kidney function. 2. Mildly delayed activity clearance in both kidneys consistent with low-grade obstruction of questionable clinical significance with differential including poor renal function, dehydration, chronic Lasix use or artifact of supine posit ioning.
--- OUTSIDE RECORDS SUMMARY | 2024-09-16 12:14 | XMS_ITS | Clinical Summary ---
Author Organization [facility] Address [address] [place] [address] Care Team Providers Care Investor Name Role Phone Fabiola Melo MD Unavailable [phone] Brittany Elias MD Primary Care Provider Source Comments [facility],non-owned Affiliates and Associated Physician Practices is amultiple site organization consisting of ambulatory clinics and hospital sitesin [place], [place], [place] and [place]. This disclosure is being madepursuant to the Care Everywhere program and may not contain all information available regarding this patient. Last updated 18.[facility] [employer] Allergies Active Allergy Reactions Criticality Noted Date Comments Sulfa Drugs 06/06/2014 Medications * Be aware that medications may not be up to date on this document. Alwaysverify current medications with the patient. triamterene-hyd rochlorothiazid e (DYAZIDE) 37.5-25 MG capsule Take 1 Cap by mouth once daily. Active LOSARTAN POTASSIUM PO Take 100 mg by mouth once daily Active Multiple Vitamin (STRESS B PO) Take by mouth. Activ e Omeprazole (PRILOSEC PO) Take 20 mg by mouth once daily as needed Active simvastatin (ZOCOR) 20 MG tablet Take 20 mg by mouth at bedtime Active fluticasone propionate (FLONASE) 50 MCG/ACT nasal spray [place] 2 sprays into each nostril nightly as needed Active SUMAtriptan (IMITREX) 25 MG tablet Take 25 mg by mouth daily as needed - may repeat one time for Migraine Maximum daily dose: 200 mg/24 hours Active metoprolol succinate XL 24hr (TOPROL XL) 50 MG tablet Take 0.5 tablets by mouth once daily 8 Active amoxicillin (AMOXIL) 500 MG capsule Take 4 capsules by mouth pre-Procedure once for 1 dose Take 4 pills 1hr prior to dental appointment 12 capsule 1 8 Active celecoxib (CELEBREX) 200 MG capsule TAKE 1 CAPSULE BY MOUTH TWICE A DAY 180 capsule 3 9 Active aspirin (ASPIRIN) 81 MG tablet Take 1 tablet by mouth once daily Active doxycycline hyclate (VIBRAMYCIN) 50 MG capsule Take 1 capsule by mouth once daily Active omeprazole (PRILOSEC) 40 MG capsule Take 1 capsule by mouth once daily Active raNITIdine (ZANTAC) 150 MG tablet Take 150 mg by mouth 2 times daily 1 9 Active Active Problems Problem Noted Date Diagnosed Date Primary osteoarthritis of right knee 03/01/2019 Status post left knee replacement 02/11/2018 Primary osteoarthritis of both knees 12/22/2017 Immunizations Immunization Administration Dates Next Due INFLUENZA VACCINE, QUADR. [...] at Not on file Legal Sex Female 12:16 PM LONG TERM Gender Identity Not on file Sexual Orientation Not on file Last Filed Vital Signs Vital Sign Reading Time Taken Comments Blood Pressure 137/64 02/14/2018 8:15 AM CDT Pulse 64 02/14/2018 8:15 AM CDT Temperature 36.8 C (98.2 F) 02/14/2018 8:15 AM CDT Respiratory Rate 18 02/14/2018 8:15 AM CDT [...] FOR DIABETES 01/18/2021 01/18/2018 COVID-19 VACCINE ( season) 2024 DEPRESSION SCREENING 05/25/2024 INFLUENZA VACCINE (Season Ended) 2025 02/12/2018, 04/28/2016, 02/23/2015, Additional history exists HEPATITIS B VACCINE Aged Out No longe r eligible based on patient's age to complete this topic HIB VACCINE Aged Out No longer eligi ble based on patient's age to complete this topic HPV VACCINE Aged Out No longer eligi ble based on patient's age to complete this topic MENINGOCOCCAL (Group B) VACCINE SHARED DECISION-MAKING Aged Out No longer eligible based on patient's age to complete this topic MENINGOCOCCAL GROUPS A/C/Y/W VACCINE Aged Out No longer eligible based on patient's age to complete this topic Medical Devices Implanted Type Area Benefits Officer Device Identifier Shelf Expiration Date Model / Serial / Lot Cmnt Bone Cblt 40gm Hvisc Strl Implanted:Qty: 1 on 02/11/2018 by Toño Johnston MD at [facility] Left: Knee [employer] 02/21/2019 600-15-000 / / [id number] Cmpnt Ptlr 28mm 1 Pg Wire Ascnt Arcm Kn Implanted:Qty: 1 on 02/11/2018 by Toño Johnston MD at [facility] Left: Knee [employer] 01/29/2023 [id number] / / [id number] Tray Tib 71mm Kn Cocr I Beam Implanted:Qty: 1 on 02/11/2018 by Toño Johnston MD at [facility] Left: Knee [employer] 12/02/2027 [id number] / / [id number] Cmpnt Fem Kn Lt Cr Cmnt Prm Vngrd Intlk Implanted:Qty: 1 on 02/11/2018 by Toño Johnston MD at [facility] Left: Knee [employer] 10/21/2027 [id number] / / [id number] [id number] Vngrd Arcm Kn Ant Stab Implanted:Qty: 1 on 02/11/2018 by Toño Johnston MD at [facility] Left: Knee [employer] 12/22/2022 [id number] / / [id number] Procedures Procedure Name Priority Date/Time Associated Diagnosis [...] 3m2 01/18/2018 11:40 AM CDT [facility] Blood BLOOD SPECIMEN / Unknown Venipuncture / Unknown 01/18/2018 8:27 AM CDT 01/18/2018 11:21 AM CDT us Toño Johnston MD LAB - CHEMISTRY ORDERABLES Fi nal Result [facility] [address] [place] [address] from Last 3 Months or Most Recently Relevant to Health Maintenance Insurance [facility] Advance Directives * Full Code (Latest Code Status on File) Date Activated Date Inactivated Comments 02/11/2018 11:11 AM 02/14/2018 1:10 PM Care Teams Investor Relationship Specialty Start Date End Date Brittany Elias MD [address] [place] [phone] PCP - General 05/26/19 [place] [address] [address] Orthopedic Surgery 06/06/14
--- OUTSIDE RECORDS SUMMARY | 2024-09-16 12:15 | XMS_ITS | Data Portability ---
Author Organization [place] - [facility] [employer] Formerly [facility] Address [address] [place] [address] Assessment Encounter Date Assessment Date Assessment LastModified by Organization Details LastModified Time 08/06/2024 08/06/2024 Ddx: UTI, STI, Pyelonephritis A: Patient s symptoms and history consistent with urinary tract infection. P: Provided counseling/treatme nt recommendations as noted below: Medication prescribed: See Rx section If any medications were discussed (either prescription or [id number]), please review any potential side effects before taking the medication. If your symptoms get worse or do not improve, please call us back or seek in person care. We are available 15/12. Pt tends to have yeast infection with taking antibiotics: No [email or web address] Not available 08/07/2024 13:02:24 Plan of Treatment Reminders Order Date Submit Date Provider Last Modified By Organization Details Last Modified Time Details Appointments None recorded . Lab None recorded . Referral None recorded . Procedures None recorded . Surgeries None recorded . Imaging None recorded . Medication Orders Cipro 250 mg tablet 025 08/07/19 25 [facility]/Pharmacy #[id number], [address] [place], [address], 18:41:41 Patient TargetsNo targets recorded. Patient Instructions Encounter Date Encounter Id Patient Instructions Last Modified By Organization Details Last Modified Time 08/06/2024 [id number] Urinary Tract Infection (UTI) in Women: Care Instructions [email or web address] Not available 08/07/2024 13:03:26 Please see you PCP this Thursday for in person evaluation If symptoms do not improve in 48 hrs must be seen at the F/U with Urologist as discussed [email or web address] Not available 08/07/2024 13:03:24 Reason for Referral None Reported. Medical Equipment None Reported. Allergies Allergen ID Allergen Name Allergen Category Reaction Reaction Severity Criticality Documentation Date Start Date Code Code System Note Provider Name and Address Organization Details Recorded Time 441636 Macrobid medicatio n Not available Not available Not available 08/06/2024 74982 1 RxNorm Not Available Included [facility] 17:37:03 216581 Substance with sulfonami de structure and antibacte rial mechanism of action (substanc e) medicatio n Not available Not available Not available 08/06/2024 65542 8003 SNOMED Not Available Included [facility] 17:37:03 Medications Name Sig Start Date Stop Date Status Note LastModified by Organization Details LastModified Time triamterene 37.5 mg-hydrochlor othiazide 25 mg capsule Take 1 capsule every day by oral route. active Not Available Not Available No t Available amlodipine 10 mg tablet Take 1 tablet every day by oral route. active Not Available Not Available No t Available Cipro 250 mg tablet Take 1 tablet every 12 hours by oral route for 7 days. 025 active Not Available Not Available Not Avai lable losartan 100 mg tablet Take 1 tablet every day by oral route. active Not Available Not Available No t Available Vitals None Recorded Social History None recorded. Functional Status None recorded. Mental Status None recorded. Family History Nothing Reported. Medical History No medical history recorded. Gynecological HistoryNo gynecological history recorded. Obstetrics History GPAL:G 0 P 0 0 0 0 Past Encounters Encounter ID Performer Location Encounter Start Date Encounter Closed Date Diagnosis/Indication Diagnosis SNOMED-CT Code Diagnosis ICD10 Code Diagnosis Note [id number] LILLY Agarwal [facility] [place] [address] 08/06/2024 17:41:34 08/06/2024 17:47:23 Patient not examined 012593166 Z53.9 [id number] LILLY Agarwal [facility] [place] [address] 08/06/2024 17:50:32 08/07/2024 15:27:58 Acute urinary tract infection 009044459 N39.0 Health Concerns Section Related Observation LastModified by Organization Detai ls LastModified Time None Recorded Concern Status LastModified by Organization Details LastModified Time None Recorded Advance Directives Directive None Recorded Payers Encounter Date Sequence Insurance Name Policy Number Policy Dunham Covered Member ID Dunham Member ID Guarantor Name 08/06/2024 1 [facility] [id number] Rody Monson [id number] Rody Monson 08/06/2024 3 *SELF PAY* [id number] Rody Monson [id number] Rody Monson 08/06/2024 1 [facility] [id number] Rody Monson [id number] Rody Monson 08/06/2024 3 *SELF PAY* [id number] Rody Monson [id number] Rody Monson Notes Date Note Type Note Provider Name and Address Organization Details Recorded Time 08/06/2024 text/html Provider at the time of the visit [place]. Patient name, , telephone number and location verified verbally with the patient. Telemedicine limitations reviewed, answered all questions the patient had about the telehealth interaction, and verbal consent obtained to treat.Pt is at home address listed in the chart at the time of the televisitCC: abdominal pain xAge and gender: 68 y.o. FHPI: Pt reports she had on 07/21/24 -Pt was on Cephalexin 500 TID and got the UTI back;A couple yrs ago had a UTI.Tested with AZO - test was positive for UITOnset and duration of symptoms:Symptoms:Ur inary burning: nUrinary frequency:nUrinary urgency:nHematuria:n Vaginal discharge:nFever (Tmax):nChills:nNaus ea:nVomiting:nAbdomi nal pain: yes lower abdominal painFlank pain: nAdditional symptoms: malaise OTC commercial urinary test results: yesOTC medication(s) used: noneRecent antibiotic use: yesHistory of past UTIs, pyelonephritis or interstitial cystitis: yes History of kidney stones: mark anthony Chen, HOUSEHOLD REFRIGERATOR MECHANIC [address] [facility] [address], [place], [address], [facility] 08/07/2024 13:03:28 OBGyn Episode No OBEpisode recorded.
--- OUTSIDE RECORDS SUMMARY | 2024-09-16 12:15 | XMS_ITS | Continuity of Care Document ---
Author Organization [facility] Address [address] [place] [address] Phone Care Team Providers Care Dental Mechanic Name Role Phone Tomas Clayton Unavailable Unavailable Procedures Procedure Date Eye Exam Established Pt Ophthalmoscopy, Subsequent Office Consultation Ophthalmoscopy Advance Directives Directive Yes / No Effective Date File Name No Information Encounters Encounter Description Practice Location Reason(s) For Visit Diagnoses Date Provider Providers Copied on Encounter [facility], [address] [place] [address] [address], [place], [place], [id number], tel:[phone] [facility] No Information [address] [place], [place], [facility], . [phone] Referring Provider: Tomas Berg, [address] [place], [place], [facility]. tel:[phone] Office Consultation [facility], [address] [place] [address] [address], [place], [place], [id number], tel:[phone] [facility] No Information [address] [place], [place], [facility], [place]. tel:[phone] Referring Provider: Marcio Lagunas, [address], [place], [place], [facility]. tel:[phone] Family History Family Member Type Diagnosis Age [...]
--- OUTSIDE RECORDS SUMMARY | 2024-09-16 12:15 | XMS_ITS | Clinical Summary ---
Author Organization [facility] Address [facility] [place] [address] Care Team Providers Care Oracle Business Analyst Name Role Phone Unavailable Primary Care Provider [...] 1 - Tdap) 1973 Mammogram Screening 1994 Pneumococcal Vaccine: 50+ Ye ars (1 of 1 - PCV) 2004 Zoster Vaccines (1 of 2) 2004 Dexa Scan (General) 11/11/2019 COVID-19 Vaccine ( - 2023-2 5 season) 2024 RSV Immunization or 60+ Years (1 [...]
--- OUTSIDE RECORDS SUMMARY | 2024-09-16 12:15 | XMS_ITS | Clinical Summary ---
Author Organization [facility] Address [address] [place] [address] Phone Care Team Providers Care Inspector Precision Name Role Phone Daly Pinto NP Primary Care Provider [phone] Allergies Active Allergy Reactions Criticality Noted Date Comments Sulfa Antibiotics Nausea Only Medications aspirin (ST KORY) 81 MG EC tablet daily. Active losartan (COZAAR) 100 MG tablet losartan 100 mg tablet TAKE 1 TABLET BY MOUTH EVERY DAY Active simvastatin (ZOCOR) 20 MG tablet simvastatin 20 mg tablet TAKE 1 TABLET EVERY EVENING Active triamterene-hyd roCHLOROthiazid e (DYAZIDE) 37.5-25 MG per capsule triamterene 37.5 mg-hydrochloroth iazide 25 mg capsule TAKE 1 CAPSULE BY MOUTH EVERY DAY Active doxycycline (VIBRAMYCIN) 50 MG capsule Take 50 mg by mouth 2 (two) times a day. Active traMADol (ULTRAM) 50 MG tablet tramadol 50 mg tablet TAKE 1 TABLET BY MOUTH EVERY 6 HOURS NEEDED FOR PAIN 8 Active fluticasone (FLONASE) 50 MCG/ACT nasal spray USE 2 SPRAYS IN EACH NOSTRIL AT BEDTIME 5 9 Active ALPRAZolam (XANAX) 0.25 MG tablet alprazolam 0.25 mg tablet TAKE 1 TABLET 3 TIMES A DAY NEEDED Active celecoxib (CeleBREX) 200 MG capsule celecoxib 200 mg capsule 9 Active HYDROcodone-gama taminophen (VICODIN) 5-300 MG per tablet hydrocodone 5 mg-acetaminophen 300 mg tablet TAKE 1 TO 2 TABLETS EVERY 6 HOURS NEEDED FOR PAIN Active omeprazole (PriLOSEC) [address] capsule omeprazole 40 mg capsule,delayed release Active SUMAtriptan (IMITREX) 25 MG tablet sumatriptan 25 mg tablet Active raNITIdine (ZANTAC) 150 MG tablet Take 150 mg by mouth 2 (two) times a day 9 Active famotidine (PEPCID) 20 MG tablet TAKE 1 TABLET BY MOUTH EVERY DAY (THIS REPLACES RANITIDINE) 0 Active Active Problems Problem Noted Date Diagnosed Date Gastroesophageal reflux disease 11/24/2019 Anxiety 10/31/2018 Depressive disorder 10/31/2018 Essential hypertension 10/31/2018 Sleep apnea 10/31/2018 Acid reflux 07/20/2018 Hyperglycemia 04/01/2017 Hyperlipidemia 04/01/2017 Migraine without aura 09/11/2016 Primary osteoarthritis of right knee 09/11/2016 Varicose veins of lower extremity 09/11/2016 Immunizations Immunization Administration Dates Next Due Influenza (IM) Preservative [...] of Binge Drinking Not on file 01/2019 Comments Unknown Sex and Gender Information Value Date Recorded Sex Assigned at Not on file Legal Sex Female 12:35 PM MDT Gender Identity Not on file Sexual Orientation Not on file Last Filed Vital Signs Vital Sign Reading Time Taken Comments Blood Pressure 136/78 12/07/2019 10:56 AM CDT Pulse - - Temperature 36.5 C (97.7 F) 12/07/2019 10:56 AM CDT Respiratory Rate 18 12/07/2019 10:56 AM CDT [...] Medium Risk (1 of 4 - PCV) 2004 Influenza Vaccine (Season Ended) 2025 02/22/2019, 02/12/2018, 04/28/2016, Additional history exists Insurance [employer] Care Teams Inspector Precision Relationship Specialty Start Date End Date Daly Pinto NP [address] [address] PCP - General Family Medicine 10/19/18
--- OUTSIDE RECORDS SUMMARY | 2024-09-16 12:15 | XMS_ITS | Data Portability ---
Author Organization [place] - [facility] [employer], Main Office Address [address] [place] [address] Care Team Providers Care Intelligence Specialist Name Role Phone MICHAEL FAYE Primary Care [...] in 3 months. Annual labs in 09/16. Not available 12/30/2023 10:17:46 03/31/2024 03/31/2024 68 [...] before next visit. Annual labs in 09/16. [email or web address] Not available 03/31/2024 10:11:32 07/21/2024 07/21/2024 68 yo F with - HYPERCALEMIA - RT KNEE OA, severe - HLD - HTG - HTN - POLYARTHROPATHY - OA - GOUT - OSTEOPOROSIS - DEPRESSION - AKSHAT (On Cpap) - OBESITY III CXR: 06/15/24. X-ray knee: 11/09/23. CXR: 06/11/23. Annual labs: 09/02/23. D/w pt about her findings, recent labs & imagines and further plan of care. Advised pt to f/u with Endo as directed. Info given to pt. All meds verified with pt. Meds as [...] - Pt got 2 doses. F/u in 2-3 months. Annual labs in 09/16. [email or web address] Not available 07/21/2024 12:22:19 Plan of Treatment Reminders Order Date Submit Date Provider Last Modified By Organization Details Last Modified Time Details Appointments Physical/ Annual Wellness 30 2024 01:00P M Michael Faye MD Not available Not available Not available Lab urinalysi s, dipstick 2024 025 [facility], [address] [place] [address], [address], 07/21/2024 12:23:41 culture, urine 2024 025 [facility] (Lab), [address] [place], [address], 07/22/2024 07:44:27 urinalysi s, dipstick 2024 025 [facility], [address] [place] [address], [address], 06/15/2024 10:58:49 culture, urine + sensitivi ty [address] (Lab), [address] [place], [address], 06/22/2024 08:03:50 PTH (parathyr oid hormone), intact + calcium, serum or plasma 2023 024 [email or web address] [facility] (Lab), [address] [place], [address], 04/07/2024 08:21:35 Referral urologist referral - Recurrent UTIs ++ Please call patient to schedule an appointme nt with Ap Greco. Thank you. 2024 025 [facility], [address] [place] [address] [address], [place], [address], 07/22/2024 21:07:36 endocrino logy referral - Please call patient to schedule an appointme nt. Thank you, 2023 024 [email or web address] Madeleine Mcbride MD, [address], [place], [address], 01/28/2024 15:12:00 Procedures None recorded. Surgeries None recorded. Imaging None recorded. Medication Orders azithromy poli 250 mg tablet 2024 025 [facility], [address], [place], [address], 08/17/2024 15:00:30 prednison e 10 mg tablet 2024 025 [facility], [address], [place], [address], 08/17/2024 15:00:29 albuterol sulfate HFA 90 mcg/actua tion aerosol inhaler 2024 025 [email or web address] [facility], [address], [place], [address], 08/17/2024 15:01:31 benzonata te 200 mg capsule 2024 025 [facility], [address], [place], [address], 08/17/2024 15:00:30 cephalexi n 500 mg capsule [address] [facility], [address], [place], [place], [address], 08/17/2024 14:35:51 alendrona te 70 mg tablet 2024 [facility], [address], [place], [address], 07/21/2024 12:05:25 losartan 100 mg tablet 2024 [facility], [address], [place], [place], [address], 07/21/2024 12:05:30 triamtere ne 37.5 mg-hydroc hlorothia zide 25 mg capsule 2024 025 [facility], [address], [place], [place], [address], 07/21/2024 12:05:23 amlodipin e 10 mg tablet 2024 025 [facility], [address], [place], [address], 07/21/2024 12:08:14 allopurin ol 300 mg tablet [address] [place] [address] Pharmacy 48, [address], [place], [address], 07/21/2024 12:11:32 rosuvasta tin 5 mg tablet [address] [place] [address] Pharmacy 48, [address], [place], [address], 07/21/2024 12:05:30 meloxicam 7.5 mg tablet [address] [place] [address] Pharmacy 4878, [address], [place], [place], [address], 07/21/2024 12:05:27 escitalop marty 10 mg tablet 2024 025 [facility], [address], [place], [place], [address], 07/21/2024 12:05:26 Macrobid 100 mg capsule [address] [facility], [address], [place], [place], [address], 07/21/2024 11:39:16 alendrona te 70 mg tablet 2023 [facility], [address], [place], [place], [address], 03/31/2024 09:52:20 amlodipin e 5 mg tablet [address] [facility], [address], [place], [place], [address], 07/21/2024 12:22:39 losartan 100 mg tablet 2023 [facility], [address], [place], [place], [address], 03/31/2024 09:52:20 triamtere ne 37.5 mg-hydroc hlorothia zide 25 mg capsule 2023 [facility], [address], [place], [address], 03/31/2024 09:52:19 allopurin ol 300 mg tablet 2023 [facility], [address], [place], [address], 03/31/2024 09:52:19 rosuvasta tin 5 mg tablet 2023 [facility], [address], [place], [address], 03/31/2024 09:52:22 tramadol 50 mg tablet 2023 [facility], [address], [place], [address], 03/31/2024 10:05:52 meloxicam 7.5 mg tablet 2023 [facility], [address], [place], [address], 03/31/2024 10:06:16 escitalop marty 10 mg tablet 2023 [facility], [address], [place], [address], 03/31/2024 09:52:19 alendrona te 70 mg tablet 2023 [facility], [address], [place], [place], [address], 12/30/2023 10:10:44 amlodipin e 5 mg tablet [email or web address] [place] [address] Pharmacy 4878, [address], [place], [address], 07/21/2024 12:22:39 losartan 100 mg tablet 2023 [facility], [address], [place], [address], 12/30/2023 10:10:44 triamtere ne 37.5 mg-hydroc hlorothia zide 25 mg capsule 2023 [facility], [address], [place], [place], [address], 12/30/2023 10:10:46 allopurin ol 300 mg tablet 2023 024 [facility], [address], [place], [address], 12/30/2023 10:10:43 rosuvasta tin 5 mg tablet 2023 [facility], [address], [place], [address], 12/30/2023 10:10:47 tramadol 50 mg tablet 2023 [facility], [address], [place], [address], 12/30/2023 10:17:24 escitalop marty 10 mg tablet 2023 024 [facility], [address], [place], [address], 12/30/2023 10:10:45 Patient TargetsNo targets recorded. Patient Instructions Encounter Date Encounter Id Patient Instructions Last Modified By Organization Details Last Modified Time 12/30/2023 [id number] starting a weigh t loss plan: care instructions Not available 12/30/2023 10:18:58 03/31/2024 [id number] starting a weigh t loss plan: care instructions [email or web address] Not available 03/31/2024 09:52:10 07/21/2024 [id number] starting a weigh t loss plan: care instructions [email or web address] Not available 07/21/2024 12:05:10 Reason for Referral Endocrinology Referral for I diopathic hypercalcemia Please call patient to schedule an appointment. Thank you, Referring Physician: Michael Faye Family Medicine, Encounter Date: 12/30/2023 Urologist Referral for Blood in urine Recurrent UTIs ++ Please call patient to schedule an appointment with Ap Greco. Thank you. Referring Physician: Michael Faye, Family Medicine, Encounter Date: 07/21/2024 Results Created Date Observation Date Name Description Value Unit Range Abnormal Flag Note LastModifiedBy Organization Detail LastModifiedTime 12/22/19 24 12/22/2023 PARAT HYROI D HORM (PTH) INT.W /CA intact parathyroid hormone 77.9 pg/mL 24- Not Available [facility] (Lab) [address] [place], [address], 12/22/2023 18:08:12 12/22/19 24 12/22/2023 PARAT HYROI D HORM (PTH) INT.W /CA calcium 11.0 mg/dL 8.4-10 .2 high Not Available [facility] (Lab) [address] [place], [address], 12/22/2023 18:08:12 12/22/19 24 12/22/2023 URIC ACID SERUM uric acid 5.6 mg/dL 2.5-6. 2 Not Available [facility] (Lab) [address] [place], [address], 12/22/2023 19:06:30 12/22/19 24 12/22/2023 LIPID PANEL cholesterol 165 mg/dL 140-19 9 NIH LUPIS NSUS RECOM MENDA TION FOR GENEVIEVE STERO L: ADULT CHILD LOW RISK: <200 <170 BORDE RLINE : <200- 239 ----- HIGH RISK: >240 >200 Not Available [facility] (Lab) [address] [place], [address], 12/22/2023 19:05:17 12/22/1912/22/2023 LIPID PANEL triglyceride s 191 mg/dL 0-150 high NIH LUPIS NSUS REPOR T RECOM MENDA TION FOR TRIGL YCERI BERNA: ADULT CHILD LOW RISK: <150 ----- BODER LINE: 150-1 99 ----- HIGH RISK: >200 ----- Not Available [facility] (Lab) [address] [place], [address], 12/22/2023 19:05:17 12/22/19 24 12/22/2023 LIPID PANEL HDL cholesterol 34 mg/dL 40- low Not Available [facility] (Lab) [address] [place], [address], 12/22/2023 19:05:17 12/22/19 24 12/22/2023 LIPID PANEL [...] WILL NOT BE REPOR GRACIELA. Not Available [facility] (Lab) [address] [place], [address], 12/22/2023 19:05:17 12/22/19 24 12/22/2023 HEPAT IC/LI REX PANEL alkaline phosphatase 61 U/L 38-126 Not Available [facility] (Lab) [address] [place], [address], 12/22/2023 19:05:29 12/22/19 24 12/22/2023 HEPAT IC/LI REX PANEL alanine aminotransfe rase 45 U/L 0-35 high Not Available [facility] (Lab) [address] [place], [address], 12/22/2023 19:05:29 12/22/19 24 12/22/2023 HEPAT IC/LI REX PANEL aspartate aminotransfe rase 30 U/L 15-37 Not Available [facility] (Lab) [address] [place], [address], 12/22/2023 19:05:29 12/22/19 24 12/22/2023 HEPAT IC/LI REX PANEL bilirubin, total 1.00 mg/dL 0.20-1 .30 Not Available [facility] (Lab) [address] [place], [address], 12/22/2023 19:05:29 12/22/19 24 12/22/2023 HEPAT IC/LI REX PANEL bilirubin, conjugated (direct) 0.00 mg/dL 0.00-0 .30 Not Available [facility] (Lab) [address] [place], [address], 12/22/2023 19:05:29 12/22/19 24 12/22/2023 HEPAT IC/LI REX PANEL biliurubin,u ncong. (indirect) 0.60 mg/dL 0.00-1 .1 Not Available [facility] (Lab) [address] [place], [address], 12/22/2023 19:05:29 12/22/19 24 12/22/2023 HEPAT IC/LI REX PANEL total protein 7.4 g/dL 6.3-8. 2 Not Available [facility] (Lab) [address] [place], [address], 12/22/2023 19:05:29 12/22/19 24 12/22/2023 HEPAT IC/LI REX PANEL albumin 4.7 g/dL 3.0-4. 4 high Not Available [facility] (Lab) [address] [place], [address], 12/22/2023 19:05:29 12/22/19 24 12/22/2023 HEPAT IC/LI REX PANEL globulin 2.7 g/dL 2.6-4. 2 Not Available [facility] (Lab) [address] [place], [address], 12/22/2023 19:05:29 12/22/19 24 12/22/2023 HEPAT IC/LI REX PANEL A/G ratio 1.7 ratio 1.0-2. 0 Not Available [facility] (Lab) [address] [place], [address], 12/22/2023 19:05:29 03/31/20 24 03/31/2024 PARAT HYROI D HORM (PTH) INT.W /CA intact parathyroid hormone 90.5 pg/mL 24-78 high Not Available [facility] (Lab) [address] [place], [address], 03/31/2024 14:35:25 03/31/20 24 03/31/2024 PARAT HYROI D HORM (PTH) INT.W /CA calcium 11.6 mg/dL 8.4-10 .2 high Not Available [facility] (Lab) [address] [place], [address], 03/31/2024 14:35:25 06/15/19 25 06/15/2024 urina lysis , dipst ick Leukocytes (reference range: negative fashan/ l) Modera te Not Available [address], [address], 06/15/2024 10:46:33 06/15/19 25 06/15/2024 urina lysis , dipst ick Nitrite (reference rage: negative mg/dl) negati ve Not Available [address], [address], 06/15/2024 10:46:33 06/15/19 25 06/15/2024 urina lysis , dipst ick Urobilinogen (reference range: 0.2-1 mg/dl) 0.2 Not Available [address], [address], 06/15/2024 10:46:33 06/15/19 25 06/15/2024 urina lysis , dipst ick Protein (reference range: negative mg/dl) Trace Not Available [address], [address], 06/15/2024 10:46:33 06/15/19 25 06/15/2024 urina lysis , dipst ick pH (reference range: 5-7) 7.0 Not Available [address], [address], 06/15/2024 10:46:33 06/15/19 25 06/15/2024 urina lysis , dipst ick Blood (reference range: negative Cornelio/ l) Negati ve Not Available [address], [address], 06/15/2024 10:46:33 06/15/19 25 06/15/2024 urina lysis , dipst ick Specific [place] (reference range: 1.005-1.030) 1.010 Not Available [address], [address], 06/15/2024 10:46:33 06/15/19 25 06/15/2024 urina lysis , dipst ick Ketone (reference range: negative mg/dl) Negati ve Not Available [address], [address], 06/15/2024 10:46:33 06/15/19 25 06/15/2024 urina lysis , dipst ick Bilirubin (reference range: negative mg/dl) Negati ve Not Available [address], [address], 06/15/2024 10:46:33 06/15/19 25 06/15/2024 urina lysis , dipst ick Glucose (reference range: negative mg/dl) Negati ve Not Available [facility] [address] [place], [address], 06/15/2024 10:46:33 06/15/19 25 06/15/2024 urina lysis , dipst ick Appearance Clear Not Available [facility] [address] [place] [address], [address], 06/15/2024 10:46:33 06/15/19 25 06/15/2024 urina lysis , dipst ick Color Yellow Not Available [facility] [address] [place], [address], 06/15/2024 10:46:33 07/21/19 25 07/21/2024 CULTU RE URINE urc ===== ===== ===== ===== ===== ===== ===== ===== ===== ===== ===== ===== ===== ===== ===== ===== ===== ===== ===== ===== ===== ===== ===== ===== Speci men NO.: [id number] Exam Statu s: Final Proce dure: CULTU RE URINE ===== ===== ===== ===== ===== ===== ===== ===== ===== ===== ===== ===== ===== ===== ===== ===== ===== ===== ===== ===== ===== ===== ===== ===== Iso/R esult : 01 Esche awilda a coli Antim icrob ic/Do se MARY BETH Syste mary beth Urine __ ___ ___ Ampic illin <=8 S S Aztre onam <=4 S S Cefot axime <=2 Cipro floxa poli <=0.2 5 S S Genta micin 4 S S Bioty pe [id number] Oxida se React ion N Extra Sensi tive Be NEG Amp/S ulbac michele <=8/4 S S Ceftr iaxon e <=1 S S Cefta zidim e <=1 S S Cefaz jonel <=2 S S Cefep severiano <=2 S S Cefur oxime <=4 S S Levof loxac in <=0.5 S S Merop enem <=1 S S Pip/T azo <=8 S S Trime th/Hernández lfa <=2/3 8 S S Tetra cycli ne <=4 S S Tobra mycin <=2 S S Nitro furan toin <=32 S S Not Available [facility] (Lab) [address] [place], [address], 07/23/2024 07:54:30 07/21/19 25 07/21/2024 urina lysis , dipst ick Leukocytes (reference range: negative afshan/ l) Trace Not Available [address], [address], 07/21/2024 12:04:50 07/21/19 25 07/21/2024 urina lysis , dipst ick Nitrite (reference rage: negative mg/dl) positi ve Not Available [address], [address], 07/21/2024 12:04:50 07/21/19 25 07/21/2024 urina lysis , dipst ick Urobilinogen (reference range: 0.2-1 mg/dl) 0.2 Not Available [address], [address], 07/21/2024 12:04:50 07/21/19 25 07/21/2024 urina lysis , dipst ick Protein (reference range: negative mg/dl) Negati ve Not Available [address], [address], 07/21/2024 12:04:50 07/21/19 25 07/21/2024 urina lysis , dipst ick pH (reference range: 5-7) 7.0 Not Available [address], [address], 07/21/2024 12:04:50 07/21/19 25 07/21/2024 urina lysis , dipst ick Blood (reference range: negative Cornelio/ l) Negati ve Not Available [address], [address], 07/21/2024 12:04:50 07/21/19 25 07/21/2024 urina lysis , dipst ick Specific [place] (reference range: 1.005-1.030) 1.010 Not Available [address], [address], 07/21/2024 12:04:50 07/21/19 25 07/21/2024 urina lysis , dipst ick Ketone (reference range: negative mg/dl) Negati ve Not Available [address], [address], 07/21/2024 12:04:50 07/21/19 25 07/21/2024 urina lysis , dipst ick Bilirubin (reference range: negative mg/dl) Negati ve Not Available [address], [address], 07/21/2024 12:04:50 07/21/19 25 07/21/2024 urina lysis , dipst ick Glucose (reference range: negative mg/dl) Negati ve Not Available [facility] [address] [facility], [place], [address], 07/21/2024 12:04:50 07/21/19 25 07/21/2024 urina lysis , dipst ick Appearance Clear Not Available [facility] [address] [place] [address], [place], [address], 07/21/2024 12:04:50 07/21/19 25 07/21/2024 urina lysis , dipst ick Color Pale Yellow Not Available [address], [address], 07/21/2024 12:04:50 02/08/20 24 02/05/2024 MAMMO , scree kayden, bilat eral No observ ation record ed. [email or web address] [facility] [address], [place], [address], 03/31/2024 09:47:38 06/15/19 25 06/15/2024 XR, chest , 2 view No observ ation record ed. [email or web address] [facility] [address], [place], [address], 07/21/2024 12:00:30 Result Notes None recorded. Problems Name Problem SNOMED Code Status Onset Date Resolution Date Notes Provider Name and Address Organization Details Recorded Time Acute sinusitis 03369739 Active 2020 Not Available [facility] 3 07:31:19 Anthony hematuria 672264786 Completed Not Available [facility] 3 07:31:20 Sciatica 48346477 Active 2021 Not Available [facility] 3 07:31:20 Mixed anxiety and depressiv e disorder 476650313 Active 2021 Not Available [facility] 3 07:31:20 Gastroeso phageal reflux disease 943570775 Active 2019 Not Available [facility] 3 07:31:20 Osteoarth ritis of knee 381021093 Active 2016 Not Available [facility] 3 07:31:20 Lumbar spondylos is 545578084 Active 2021 Not Available [facility] 3 07:31:20 Headache 53462701 Completed Daly Pinto NP [address], [address], [place], [address] , [employer] 3 12:00:58 History of thyroid disorder 499445774 Active 2020 Not Available [facility] 3 07:31:20 Low back pain 053898616 Active 2021 Not Available [facility] 3 07:31:20 Retinal disorder 61133820 Active Not Available [facility] 3 07:31:20 Hypertrig lyceridem ia 945452195 Active 2020 Not Available [facility] 3 07:31:21 Depressiv e disorder 46735915 Active Not Available [facility] 3 07:31:21 Seasonal allergic rhinitis 603721549 Active 2019 Not Available [facility] 3 07:31:21 Sinusitis 56641321 Active 2017 Not Available [facility] 3 07:31:21 Hypertens shana disorder 07987074 Active 2019 Not Available [facility] 3 07:31:21 Hematoma 533946838 Completed Not Available [facility] 3 07:31:21 Memory impairmen t 266653026 Active 2020 Not Available [facility] 3 07:31:21 Furuncle 352859792 Completed Michael Faye MD [address], [address], [place], [address] , [employer] 4 10:18:43 Environme ntal allergy 883130887 Active 2016 Not Available [facility] 3 07:31:21 Herniatio n of lumbar intervert ebral disc with sciatica 51628313563 4105 Active 2021 Not Available [facility] 3 07:31:22 Foot pain 16872965 Completed Not Available [facility] 3 07:31:22 Bilateral tinnitus 80187612310 02 Active 2019 Not Available [facility] 3 07:31:22 Anxiety 81440284 Active Not Available [facility] 3 07:31:22 Upper respirato ry infection 14078111 Completed Not Available [facility] 3 07:31:22 Hyperlipi demia 61702393 Active 2016 Not Available [facility] 3 07:31:22 Migraine without aura 30094756 Active 2016 Not Available [facility] 3 07:31:22 Osteoporo sis 74479273 Active 2021 Not Available [facility] 3 07:31:23 Urinary tract infectiou s disease 15262003 Completed Michael Faye MD [address] [place] [address], [address] , [facility] 4 16:13:03 Acid reflux 546427930 Active 2018 Not Available [facility] 3 07:31:23 Liver enzymes level above reference range 933890632 Active 2020 Not Available [facility] 3 07:31:23 Varicose veins of lower extremity 75951359 Active 2016 Not Available [facility] 3 07:31:23 Sleep apnea 20433064 Active Not Available [facility] 3 07:31:24 Urgent desire to urinate 08055309 Completed Not Available [facility] 3 07:31:24 Postmenop ausal state 97040496 Active 2021 Not Available [facility] 3 07:31:24 Hyperglyc emia 71075987 Active 2016 Not Available [facility] 3 07:31:24 Gout 12171747 Active 2021 Not Available [facility] 3 07:31:24 Skin lesion 37479724 Completed Not Available [facility] 3 07:31:25 Kidney stone 49876735 Completed Not Available [facility] 3 07:31:25 Obese 562569024 Active 2022 Daly Pinto NP [address], [address], [place], [address] , [employer] [place] [facility] [employer] [facility] [employer] [employer] 3 11:56:43 Headache 33826564 Active 2022 Daly Pinto NP [address], [address], [place], [address] , [employer] [facility] [employer] 3 12:00:58 Lumbar radiculop athy 058686289 Active 2022 Michael Faye MD [address], [address], [place], [address] , [employer] [place] [facility] [employer] 3 17:01:57 Obesity 485805354 Active 2022 Michael Faye MD [address], [address], [place], [address] , [employer] [place] [facility] 3 17:02:46 Lipoma of lower leg 979539280 Active 2022 Michael Faye MD [address], [address], [place], [address] , [employer] [place] [facility] 3 17:43:42 Idiopathi c hypercalc emia 668861756 Active 2022 Michael Faye MD [address], [address], [place], [address] , [place] [facility] 3 14:31:47 Hyperpara thyroidis m 75766285 Active 2022 Daly Pinto NP [address], [address], [place], [address] , [place] [facility] 3 17:11:28 Blood in urine 23982963 Active 2022 Daly Pinto NP [address], [place], [address] , [place] [facility] [place] [facility] 3 10:44:02 Abnormal uterine bleeding 90162678405 100 Active 2022 Daly Pinto NP [address], [place], [address] , [place] [facility] 3 10:44:49 Acute urinary tract infection 063747992 Active 2022 Daly Pinto NP [address], [place], [address] , [place] [facility] 3 08:51:54 Dysuria 50851011 Active 2022 Daly Pinto NP [address], [place], [address] , [place] [facility] 3 10:52:22 Urinary tract infectiou s disease 18702246 Active 2023 Michael Faye MD [address], [place], [address] , [place] [facility] 4 16:13:03 Bilateral earache 737477723 Active 2023 Michael Faye MD [address], [place], [address] , [place] [facility] 4 16:33:22 Candidal vulvovagi nitis 43986766 Active 2023 Michael Faye MD [address], [place], [address] , [place] [facility] 4 16:37:42 Gouty arthropat hy 094827195 Active 2023 Michael Faye MD [address], [place], [address] , [employer] 4 09:56:46 Polyarthr opathy 48516667 Active 2023 Michael Faye MD [address] [place] [address], [place], [address] , [employer] [facility] [employer] 4 09:58:59 Obstructi ve sleep apnea syndrome 08187209 Active 2023 Michael Faye MD [address], [place], [address] , [employer] 4 10:07:57 Pain of right knee joint 89426034127 4100 Active 2023 LILLY Beltran [address], [place] [address], [place], [address] , [employer] [facility] [employer] 4 14:54:22 Hypercalc emia 47240237 Active 2023 LILLY Beltran [address], [place] [address], [place], [address] , [employer] [facility] [employer] 4 14:58:37 Cough 83514269 Active 2024 Michael Faye MD [address], [place] [address], [place], [address] , [employer] [facility] [employer] 5 14:35:26 Bronchiti s 04500776 Active 2024 Michael Faye MD [address], [place] [address], [place], [address] , [facility] [facility] [employer] [facility] 5 14:57:50 Muscle strain 66976174 Active 2024 Michael Faye MD [address] [place] [address], [place], [address] , [employer] [facility] [employer] [facility] 5 15:14:02 Problem Notes None recorded. Procedures Surgical History Date Name Laterality Status Provider Name and Address Organization Details Recorded Time 09/29/19 24 Medicare Wellness CPT Code, subsequent completed Reji [facility] 09/29/2023 14:15:26 06/18/19 24 Transitional_Care_ Management completed Reji [facility] 06/18/2023 16:22:09 06/23/19 23 Most Recent Mammogram completed Daly Monte RN [facility] 10/09/2022 09:25:48 04/03/20 22 Most Recent Bone Density completed Not Available formerly [facility] 07/23/2022 07:26:53 05/25/19 18 Knee Replacement completed Not Available [facility] 07/23/2022 07:26:55 05/25/19 02 repair of ovary completed Not Available formerly [facility] 07/23/2022 07:26:55 05/25/18 92 Cholecystectomy completed Not Available formerly [facility] 07/23/2022 07:26:55 Imaging Results Imaging Date Name Status LastModified by Organiz ation Details LastModified Time 02/05/2024 MAMMO, screening, bilateral completed [address] [facility] [address], [place], [address], 03/31/2024 09:47:38 06/15/2024 XR, chest, [address], [place], [address], 07/21/2024 12:00:30 Procedure Notes None recorded. Medical Equipment None Reported. Allergies Allergen ID Allergen Name Allergen Category Reaction Reaction Severity Criticality Documentation Date Start Date Code Code System Note Provider Name and Address Organization Details Recorded Time 43517 Substance with sulfonami de structure and antibacte rial mechanism of action (substanc e) medicatio n nausea Not available Not available 07/23/2022 89569 8003 SNOMED Not Available [facility] 3 07:36:13 93994 Zithromax medicatio n other Not available Not available 03/31/2024 4 RxNorm cause s pt to be super jitte ry Michael Faye MD [address] [facility] [address], [place], [address] [place] [address] [facility] 5 14:58:29 42748 Macrobid medicatio n anaphylax is severe high 06/16/20242024 55075 1 RxNorm state s her throa t close d up with in the hour of leyda dove it, had to go to [facility] [employer] 5 09:32:31 Medications Name Sig Start Date [...] Not Available Not Available No t Available prednison e 10 mg tablet TAKE 4 TABLETS BY MOUTH ON DAYS 1-2, THEN TAKE 2 TABLETS BY MOUTH ON DAYS 3-4, THEN TAKE 1 TABLET ON DAYS 5-7. active Not Available Not Available No t [...] DAY ON DAY 2 THROUGH DAY 5 active Not Available Not Available No t Available ibuprofen 800 mg tablet TAKE 1 TABLET EVERY 8 HOURS NEEDED FOR PAIN active Not Available Not Available No t Available fluconazo le 150 mg tablet TAKE ONE TABLET BY MOUTH A ONE-TIME DOSE. CAN REPEAT IN 1 WEEK. 09/01 completed Not Available Not Available Not Available benzonata te 200 mg capsule TAKE 1 CAPSULE BY MOUTH EVERY 8 HOURS NEEDED FOR 10 DAYS active Not Available Not Available No t Available metoprolo l succinate ER 50 mg [...] TAKE 1 TABLET BY MOUTH ONCE A WEEK, ON THE SAME DAY EACH WEEK active Not Available Not Available No [...] BY MOUTH TWICE DAILY FOR 5 DAYS 08/17 completed Not Available Not Available Not Available amlodipin e 5 mg tablet TAKE 1 TABLET BY MOUTH ONCE DAILY 07/21 completed Not Available Not Available Not Available allopurin ol 100 mg tablet TAKE 1 [...] TAKE 1 CAPSULE BY MOUTH DAILY QAM 2024 active Not Available Not Available Not Avai lable amoxicill in 500 mg tablet Take 1 tablet twice a day by oral route for 10 days. 04/01 completed Not Available Not Available Not Available Macrobid 100 mg capsule Take 1 capsule every 12 hours by oral route for 10 days. 07/21 completed Not Available Not Available Not Available meloxicam 7.5 mg tablet TAKE 1 TABLET [...] Not Available Not Available No t Available amlodipin e 10 mg tablet TAKE 1 TABLET BY MOUTH ONCE DAILY DIRECTED active Not Available Not Available No t Available cephalexi n 500 mg capsule TAKE 1 CAPSULE BY MOUTH THREE TIMES DAILY active Not Available Not Available No t Available paroxetin e 20 mg tablet Take [...] cough Not Available Not Available Not Available prednison e 50 mg tablet TAKE 1 TABLET BY MOUTH ONCE DAILY FOR 5 DAYS 07/21 completed Not Available Not Available Not Available polymyxin [...] oral route as directed for 90 days. 2024 active Not Available Not Available Not Avai lable mupirocin 2 % topical ointment APPLY SMALL AMOUNT IN EACH NOSTRIL TWICE DAILY FOR 5 DAYS 09/11 completed Not Available Not Available Not Available Wellbutri n 100 mg tablet Take 1 tablet twice a day by oral route with meals for 15 days. 11/01 completed Not Available Not Available Not Available epinephri ne 0.3 mg/0.3 mL injection , auto-inje ctor INJECT CONTENTS OF 1 PEN NEEDED FOR ALLERGIC REACTION A ONE TIME DOSE. MAY REPEAT ONCE. active Not Available Not Available No t Available oxycodone -acetamin ophen 7.5 mg-325 mg tablet 03/30 completed Not Available Not Available Not Available methylpre dnisolone 4 mg tablets in a dose pack TAKE BY MOUTH DIRECTED ON INSIDE OF PACKAGE 09/01 completed Not Available Not Available Not Available albuterol sulfate HFA 90 mcg/actua tion aerosol inhaler INHALE 2 PUFFS BY MOUTH EVERY 6 HOURS NEEDED FOR 15 DAYS active Not Available Not Available No t Available losartan 100 mg tablet 1 tab po daily. 2024 active Not Available Not Available Not Avai lable fluticaso ne propionat e 50 mcg/actua tion [...] MOUTH EVERY 12 HOURS FOR 7 DAYS 07/21 completed Not Available Not Available Not Available [...] Not Available escitalop marty 10 mg tablet Take 1 tablet by mouth once daily 2024 active Not Available Not Available Not Avai lable rosuvasta tin 5 mg tablet Take 1 tablet every day by oral route at bedtime for 90 days. 2024 active Not Available Not Available [...] Not Available Not Available Not Available Afluria (PF) 45 mcg (15 mcg [...] Updated DateTime 4 160.02 cm 40.9 kg/m2 027150. 19 g 98.1 [degF] 76 /min 20 /min 98 % 98 % 136 mm[Hg] 76 mm[Hg] Reji [place] [facility] 4 09:57:01 Date Recorded Body height Body mass index (BMI) Body weight Body temperature Heart rate Oxygen saturation Oxygen saturation in Arterial blood by Pulse oximetry Systolic blood pressure Diastolic blood pressure Provider Name and Address Organization Details Last Updated DateTime 4 160.02 cm 40.3 kg/m2 004316. 98 g 97.2 [degF] 62 /min 98 % 98 % 138 mm[Hg] 78 mm[Hg] Regla Mukherjee RN [facility] [email or web address] [facility] 4 09:45:57 Date Recorded Body height Body mass index (BMI) Body weight Body temperature Heart rate Respiratory rate Oxygen saturation Oxygen saturation in Arterial blood by Pulse oximetry Pain severity - 0-10 verbal numeric rating [Score] - Reported Systolic blood pressure Diastolic blood pressure Provider Name and Address Organization Details Last Updated DateTime 5 160.02 cm 41.5 kg/m2 897895. 61 g 97.3 [degF] 74 /min 20 /min 97 % 97 % 3 160 mm[Hg] 90 mm[Hg] Daly Monte RN [facility] [employer] 5 10:40:55 Date Recorded Body height Body mass index (BMI) Body weight Body temperature Heart rate Respiratory rate Pain severity - 0-10 verbal numeric rating [Score] - Reported Provider Name and Address Organization Details Last Updated DateTime 5 160.02 cm 41.7 kg/m2 317514. 91 g 97.5 [degF] 74 /min 20 /min 1 Daly Monte RN [facility] [employer] 5 11:47:05 Date Recorded Oxygen saturation Oxygen saturation in Arterial blood by Pulse oximetry Systolic blood pressure Diastolic blood pressure Provider Name and Address Organization Details Last Updated DateTime 07/21/2024 96 % 96 % 160 mm[Hg] 84 mm[Hg] Michael Faye MD [address] [place] [address], [address], [place] [employer] [facility] [employer] 5 12:20:50 Date Recorded Body height Body mass index (BMI) Body weight Body temperature Oxygen saturation Oxygen saturation in Arterial blood by Pulse oximetry Heart rate Systolic blood pressure Diastolic blood pressure Provider Name and Address Organization Details Last Updated DateTime 5 160.02 cm 41.4 kg/m2 734982. 82 g 98.2 [degF] 96 % 96 % 72 /min 120 mm[Hg] 70 mm[Hg] Nely Xiao RN [facility] [employer] 5 14:53:14 Social History Question Answer Notes LastModified by Organization Details LastModified Time Tobacco Smoking Status Never Smoker [facility] 06/18/2023 16:10:12 Do You Have An Advance Directive? Yes [id number] Information not available 07/23/2022 What Is Your Level Of Alcohol Consumption? None [id number] Information not available 07/23/2022 Are You Blind Or Do You Have Difficulty Seeing? No Information not available 06/18/2023 Is Blood Transfusion Acceptable In An Emergency? Yes Information not available 06/18/2023 What Is Your Level Of Caffeine Consumption? Moderate [id number] Information not available 07/23/2022 How Much Tobacco Do You Chew? None [id number] Information not available 07/23/2022 What Is Your [...] Type Of Diet Are You Following? GLUTENFREE [email or web address] Information not available 12/30/2023 Which Illicit Or Recreational Drugs Have You Used? None Information not available 06/18/2023 Do You Or Have You Ever Used E-cigarettes Or Vape? Never Used Electronic Cigarettes Information not available 06/18/2023 What Is The Highest Grade Or Level Of School You Have Completed Or The Highest Degree You Have Received? [id number] Information not available 06/18/2023 What Is Your [...] not available 06/18/2023 Where [facility] You Live? [facility] Information not available 06/18/2023 Advance Directive- [...] Do You Have A Medical Power Of Applications Programmer? No Information not available 06/18/2023 What Was [...] Anxious, Or Unable To Sleep At Night)? [id number] Information not available 11/09/2023 Do You Use [...] 06/18/2023 What is your exercise level? Moderate [email or web address] Information not available 12/30/2023 Mental Status Question Answer Note LastModified by Organization D etails LastModified Time Do you have difficulty concentrating, remembering or making decisions? No Information no t available 06/18/2023 Family History Relationship Description Onset Age of this Age Resolved Age Notes LastModified by Organization Details LastModified Time Father No current problems or disability [id number] Not available 07/23/2022 07:26:58 Mother No current problems or disability [id number] Not available 07/23/2022 07:26:58 Medical History Condition Response HEADACHES/MIGRAINES Y OBESITY Y ANXIETY DISORDER Y GERD/NAUSEA Y ALLERGIES/HAYFEVER Y BACK INJECTIONS Y URINARY/BLADDER/KIDNEY PROBLEMS Y BACK / NECK PROBLEMS Y HYPERTENSION [...] virus, quadrivalent, preservative 8 completed Not Available formerly [facility] 07/23/2022 07:36:04 Influenza, split virus, trivalent, preservative 5 completed Not Available formerly [facility] 07/23/2022 07:36:04 zoster live 5 completed Not Available formerly [facility] 07/23/2022 07:36:04 Influenza, split virus, trivalent, PF 4 completed Not Available formerly [facility] 07/23/2022 07:36:04 Pneumococcal conjugate PCV 13 0 completed Not Available formerly [facility] 07/23/2022 07:36:05 Influenza, high-dose, quadrivalent, PF 0 completed Not Available formerly [facility] 07/23/2022 07:36:05 Tdap 8 completed Not Available formerly [facility] 07/23/2022 07:36:05 Influenza, split virus, quadrivalent, PF 6 completed Not Available formerly [facility] 07/23/2022 07:36:05 Past Encounters Encounter ID Performer Location Encounter Start Date Encounter Closed Date Diagnosis/Indication Diagnosis SNOMED-CT Code Diagnosis ICD10 Code Diagnosis Note [id number] [facility] [place] [address] [place] [address] 07/24/2020 00:00:00 07/24/2020 09:44:41 [id number] [facility] [place] [address] [place] [address] 10/31/2020 00:00:00 10/31/2020 09:16:25 [id number] [facility] [address] [place] [address] 11/20/2020 00:00:00 11/20/2020 12:21:01 [id number] [facility] [place] [address] [place] [address] 02/13/2021 00:00:00 02/13/2021 14:33:22 [id number] [facility] [place] [address] [place] [address] 02/26/2021 00:00:00 02/26/2021 14:32:03 [id number] [facility] [place] [address] [place] [address] 07/24/2021 00:00:00 07/24/2021 14:56:44 [id number] [facility] [place] [address] [place] [address] 10/09/2021 00:00:00 10/09/2021 14:38:30 [id number] [facility] [place] [address] [place] [address] 02/26/2022 00:00:00 02/26/2022 10:42:26 [id number] [facility] [place] [address] [place] [address] 03/18/2022 00:00:00 03/19/2022 15:55:39 [id number] [facility] [place] [address] [place] [address] 04/29/2022 00:00:00 04/29/2022 18:09:05 [id number] [facility] [place] [address] [place] [address] 05/06/2022 00:00:00 05/06/2022 15:25:01 [id number] Daly Pinto NP [facility] [place] [address] [place] [address] 08/06/2022 11:17:09 08/06/2022 12:50:33 Hyperlipidemia 54508724 E78.5 Low fat diet. Statins cause pain. 02/27/22 last lab result. Essential hypertension 09692345 I10 amlodipine 5 mg po daily.ASA 81 mg po dailyLosar puckett 100 mg po daily.tria mterene 37.5 mg-hctz25 mg po daily. (this can increase gout flare, so stopped and started on losartan only) Osteoporosis 55433179 M8 1.0 alendronat e 70 mg po weekly pt stopped. Wants to follow Dr. Sims holistic provider and be on vitamins.M eloxicam 15 mg po daily.Tram adol 50 mg po tid prn- pt trying to wean off. Acid reflux 030699380 K2 1.9 famotidine 20 mg po daily. Sleep apnea 06119684 G47 .30 Gout 57181371 M10.9 allopurino l 100 mg po daily. Seasonal a llergic rhinitis 964842431 J30.2 cetirizine 10 mg po daily.Flon ase prn Mixed anxi ety and depressive disorder 287039657 F41.8 Pt weaned herself off the lexapro. Hydroxyzin e prn use. Sciatica 96545353 M54.32 cyclobenza shalini 10 mg po tid prn.Gabape ntin 300 mg po nightly. Obese 662233427 E66.9 Diet and exercise. Wegovy and phentermin e discussed. Phentermin e 15 mg po daily. Headache 47396535 R51.9 [id number] Michael Faye MD [address] [address] 08/07/2022 16:38:36 08/07/2022 17:44:28 Cramp in lower limb 533332928 R25.2 B/L Lumbar radiculopathy 128 874641 M54.16 Gout 65270795 M10.9 Obesity 064760486 E66.9 Lipoma of lower leg 1890 07616 D17.24 Lt [id number] Daly Pinto NP [address] [address] 09/09/2022 09:34:15 09/09/2022 10:58:16 Blood in urine 18420182 R31.9 Sending urine for culture. Blood with wiping- no periods for 15 years. Abnormal u terine bleeding 5944193548 9100 N93.9 referring to scenario writer- pt to find provider that accepts insurance. Obese 108092912 E66.9 Diet and exercise. Phentermin e 15 mg po daily. Down 2 lbs. Would like to continue. [id number] Daly Pinto NP [address] [address] 10/09/2022 09:13:04 10/09/2022 10:05:37 Obese 020719616 E66.9 Diet and exercise. Phentermin e 15 mg po daily. Down 2 lbs. Would like to continue.I LPMP last fill 09/09/22.Ph entermine 37.5 mg po daily. Essential hypertension 97206024 I10 amlodipine 5 mg po daily.ASA 81 mg po dailyLosar puckett 100 mg po daily.tria mterene 37.5 mg-hctz25 mg po daily. (this can increase gout flare, so stopped and started on losartan only) Gastroesop hageal reflux disease 061550838 K21.9 [id number] Daly Pinto NP [address] [address] 10/24/2022 10:41:24 10/24/2022 11:44:26 Dysuria 33921133 R30.0 R30.9 Patient was started on antibiotic and advised to increase water intake.Cul ture sent.Urina lysis in office +nitrites [id number] Daly Pinto NP [address] [address] 01/21/2023 13:58:46 01/21/2023 18:03:00 Gout 88532782 M10.9 allopurino l 200 mg po daily. Seeing Dr. Becerra. Sleep apnea 35288731 G47 .30 CPAP Acid reflux 201618830 K2 1.9 famotidine 20 mg po daily. Hyperparathyroidism 6699 9008 E21.3 referred to endo, but patient cancelled. Osteoporosis 80979273 M8 1.0 alendronat e 70 mg po weekly pt stopped. Wants to follow Dr. Sims holistic provider and be on vitamins.M eloxicam 15 mg po daily.Tram adol 50 mg po tid prn- pt trying to wean off. Not able to yet- trying to lose weight. Essential hypertension 17245912 I10 amlodipine 5 mg po daily.ASA 81 mg po dailyLosar puckett 100 mg po daily.tria mterene 37.5 mg-hctz25 mg po daily. (this can increase gout flare, so pt monitoring ) Migraine without aura 56 442758 G43.009 Hyperlipidemia 84201389 E78.5 Low fat diet. Statins cause pain. 02/27/22 last lab result. Anxiety 79427202 F41.9 Obese 563209763 E66.9 Diet and exercise. Lumbar spondylosis 43596 0009 M47.896 Osteoarthr itis of knee 945342346 M17.9 [id number] Michael Faye MD [address] [address] 06/18/2023 16:09:07 06/18/2023 17:00:32 Seen in emergency clinic 812154711 Z76.89 Recent ED records reviewed. 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 Obesity 479811063 E66.9 Osteoporosis 08156867 M8 1.0 Screening mammography 24 988152 Z12.31 Screening for malignant neoplasm of colon 262723813 Z12.11 Urinary tr act infectious disease 00105918 N39.0 Obstructiv e sleep apnea syndrome 72033316 G47.33 [id number] Michael Faye MD [address] [address] 09/29/2023 14:13:02 09/29/2023 15:00:22 Hypertensive disorder 16915507 I10 Gouty arthropathy 332943 008 M10.09 Depressive disorder 3548 9007 F32.A Polyarthropathy 11385516 M13.0 Obesity 046259442 E66.9 Osteoporosis 07294530 M8 1.0 Obstructiv e sleep apnea syndrome 45082756 G47.33 Adult [facility] th examination 421838238 Z00.00 Screening for disorder 589576270 Z13.9 Hyperlipidemia 37447268 E78.5 Liver enzy mes level above reference range 666398468 R74.01 Idiopathic hypercalcemia 153961381 E83.52 Essential hypertension 07345877 I10 [id number] LILLY Beltran [address] [address] 11/09/2023 14:20:26 11/09/2023 15:06:36 Pain of right knee joint 3464094768 66921 M25.561 Hypercalcemia 00130284 E 83.52 [id number] Michael Faye MD [address] [address] 12/22/2023 09:14:13 12/22/2023 09:30:39 [id number] Michael Faye MD [address] [address] 12/30/2023 09:42:46 12/30/2023 10:33:19 Hypertensive disorder 86369763 I10 Gouty arthropathy 623995 008 M10.09 Depressive disorder 3548 9007 F32.A Polyarthropathy 74020122 M13.0 Obesity 081968283 E66.9 Osteoporosis 24046624 M8 1.0 Obstructiv e sleep apnea syndrome 46178888 G47.33 Hyperlipidemia 98036487 E78.5 Liver enzy mes level above reference range 587062921 R74.01 Idiopathic hypercalcemia 635882035 E83.52 Osteoarthr itis of knee 825310562 M17.9 [id number] Michael Faye MD [address] [address] 03/31/2024 09:38:14 03/31/2024 10:14:55 Idiopathic hypercalcemia 548271205 E83.52 Gouty arthropathy 211783 008 M10.09 Hypertensive disorder 38 738900 I10 Depressive disorder 3548 9007 F32.A Polyarthropathy 55354733 M13.0 Obesity 478292853 E66.9 Osteoporosis 71401535 M8 1.0 Obstructiv e sleep apnea syndrome 98629755 G47.33 Hyperlipidemia 82048320 E78.5 Liver enzy mes level above reference range 354868639 R74.01 Osteoarthr itis of knee 420590307 M17.9 [id number] LILLY Beltran [address] [address] 06/15/2024 10:16:28 06/15/2024 10:56:03 Acute urinary tract infection 126616322 N39.0 hx of sepsis related to UTI [id number] Michael Faye MD [address] [address] 07/21/2024 11:36:24 07/21/2024 12:34:55 Gouty arthropathy 712350573 M10.09 Idiopathic hypercalcemia 290553121 E83.52 Hypertensive disorder 38 152165 I10 Depressive disorder 3548 9007 F32.A Polyarthropathy 75606221 M13.0 Obesity 972906087 E66.9 Osteoporosis 15575892 M8 1.0 Obstructiv e sleep apnea syndrome 21394700 G47.33 Hyperlipidemia 65873013 E78.5 Liver enzy mes level above reference range 990431809 R74.01 Osteoarthr itis of knee 299238521 M17.9 Blood in urine 30105750 R31.9 Dysuria 48154978 R30.0 [id number] Michael Faye MD [facility] [address] [address] 08/17/2024 14:29:59 08/17/2024 15:04:55 Cough 30782070 R05.9 Bronchitis 01662615 J40 Muscle strain 68469813 T 14.8XXA Health Concerns Section Related Observation LastModified by Organization Detai ls LastModified Time None Recorded Concern Status LastModified by Organization Details LastModified Time None Recorded Advance Directives Directive Y: Payers Encounter Date Sequence Insurance Name Policy Number Policy [place] Covered Member ID Dunham Member ID Guarantor Name 12/30/[address] [facility] (MEDICARE REPLACEMENT/A DVANTAGE - HMO) [id number] Rody Monson [id number] Rody Monson 03/31/[address] [facility] (MEDICARE REPLACEMENT/A DVANTAGE - HMO) [id number] Rody Monson [id number] Rody Monson 06/15/[address] [facility] (MEDICARE REPLACEMENT/A DVANTAGE - HMO) [id number] Rody Monson [id number] Rody Monson 07/21/[address] [facility] (MEDICARE REPLACEMENT/A DVANTAGE - HMO) [id number] Rody Monson [id number] Rody Monson 08/17/[address] [facility] (MEDICARE REPLACEMENT/A DVANTAGE - HMO) [id number] Rody Monson [id number] Rody Monson Notes Date Note Type Note Provider Name and Address Organization Details Recorded Time 12/30/2023 text/html Pt is here for f /u on her lab and chronic conditions. Doing overall well. Denies any problem with meds. Denies any new concern. Pt has chronic multiple joints pain and morning stiffness and is on Tramadol and Meloxicam for it. Pt has not seen any specialist for this in the past. Michael Faye MD [address] [place] [address], [address] [address], [place], [address], [facility] [employer] 12/30/2023 10:19:23 03/31/2024 text/html Pt is here [...] supplements by them. Michael Faye MD [address], [address], [place], [address], [employer] 03/31/2024 10:12:43 06/15/2024 text/html Rody Monson is a 68 year old female patient here today for urinary concerns She states she gets UTIs frequently She noticed blood in her urine last night, pelvic pain, pressure, urgency LILLY Beltran [address], [place], [address], [employer] 06/15/2024 10:51:32 07/21/2024 text/html FUV + ACV: C/o urinary urgency and a spot of blood in urine. Denies any other symptoms. Pt gets UTI every few months. Pt admits that she is not drinking enough water regularly. Pt is here for f/u on her labs, meds and chronic conditions. Doing overall well. Denies any problem with meds. Denies any new concern. Pt has not gone for lab yet. Pt has not seen Endo yet. Pt has chronic multiple joints pain and morning stiffness and is on Tramadol and Meloxicam for it. Pt has not seen any specialist for this in the past. Pt is f/u with functional medicine doctor in [place] and in on supplements by them. Michael Faye MD [address], [address], [place], [address], [employer] 07/21/2024 14:54:26 08/17/2024 text/html ACV: C/o cough, congestion, drainage for last 3 weeks, on/off. Pt has been doing otc meds and its still not getting better. Due to cough, she is c/o middle back area pain too. Denies any recent fall/trauma. Michael Faye MD [address] [facility] [address], [place], [address], [facility] 08/17/2024 15:14:28 OBGyn Episode No OBEpisode recorded.
--- OUTSIDE RECORDS SUMMARY | 2024-09-16 12:15 | XMS_ITS | Clinical Summary ---
Author Organization [facility] Address [address] [place] [address] Phone Care Team Providers Care Nitroglycerin Neutralizer Name Role Phone Daly Pinto TRACK SUPERINTENDENT, MANAGED CARE ANALYST Primary Care Pro vider Medications Aspirin 81 [...] Comments Blood Pressure 130/86 04/08/2019 8:56 AM TUBE TELLER Pulse 70 04/08/2019 8:56 AM TUBE TELLER Temperature - - Respiratory Rate - - Oxygen Saturation 98% 04/08/2019 8:56 AM TUBE TELLER Inhaled Oxygen Concentration - - Weight 108 kg (238 lb) 04/08/2019 8:56 AM TUBE TELLER Height 160 cm (5' 3 ) 04/08/2019 8:56 AM TUBE TELLER Body Mass Index 42.16 04/08/2019 8:56 AM TUBE TELLER Plan of Treatment Health Maintenance Due Date Last Done Comments Hepatitis C Virus (HCV) Screening 1955 Cologuard 2004 Immunochemical Fecal Occult Blood 2004 Pneumococcal Immunization (50+ years) (1 of 1 - PCV) 2004 Zoster Immunization (2 of 3) 04/19/2015 02/22/2015 SARS-COV-2 Immunization (1 - season) 2024 Influenza Immunization (Season Ended) 2025 02/12/2018, 04/28/2016, 02/22/2015, Additional history exists Colonoscopy 05/12/2026 05/12/2019 Colorectal Cancer Screening 05/12/2026 [...] Most Recently Relevant to Health Maintenance Insurance [facility] Care Teams Nitroglycerin Neutralizer Relationship Specialty Start Date End Date Daly Pinto APRN, MANAGED CARE ANALYST [address] [place], [place] [id number] PCP - General Certified Nurse Practitioner 11/02/18
== END 2024-09-16 12:13 | disposition home or self-care (01) ==
PROVIDERS: PCP Family Medicine; Visit Provider Urology
DX: N13.30 Unspecified hydronephrosis (principal)
CPT/HCPCS: 78708; A9562; J1938

== ENCOUNTER 2024-10-03 08:39 | Outpatient (CLI) | payer MEDICARE, SELFPAY ==
--- OUTSIDE RECORDS SUMMARY | 2024-10-03 08:46 | XMS_ITS | Clinical Summary ---
Author Organization [facility] Address [address] [place] [address] Care Team Providers Care Throat Cutter Name Role Phone Fabiola Melo MD Unavailable [phone] Brittany Elias MD Primary Care Provider Source Comments [facility],non-owned Affiliates and Associated Physician Practices is amultiple site organization consisting of ambulatory clinics and hospital sitesin [place], [place], [place]. This disclosure is being madepursuant to the Care Everywhere program and may not contain all information available regarding this patient. 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 Gender Identity Not on file Sexual Orientation [...] 2004 ZOSTER VACCINE (1 of 2) 2004 SCREENING FOR DIABETES 01/18/2021 01/18/2018 COVID-19 VACCINE (1 - season) 2024 DEPRESSION SCREENING 05/25/2024 INFLUENZA VACCINE (Season Ended) 2025 02/12/2018, 04/28/2016, 02/23/2015, Additional history exists Respiratory Syncytial Virus (RSV) Vaccine Pt: or over 60 yrs (1 - 1-dose 75+ series) 2029 HEPATITIS B VACCINE Aged Out No longe [...] this topic Medical Devices Implanted Type Area Merchandise Manager Device Identifier Shelf Expiration Date Model / Serial / Lot Cmnt Bone Cblt 40gm Hvisc Strl Implanted:Qty: 1 on 02/11/2018 by Toño Johnston MD at [facility] Left: Knee [employer] 02/21/2019 600-15-000 / / [id number] Cmpnt Ptlr 28mm 1 Pg Wire Ascnt Arcm Kn Implanted:Qty: 1 on 02/11/2018 by Toño Johnston MD at [facility] Left: Knee [employer] 01/29/2023 [id number] / / [id number] Tray Tib 71mm Kn Cocr I Beam Implanted:Qty: 1 on 02/11/2018 by Toño Johnston MD at [facility] Left: Knee [employer] 12/02/2027 [id number] / / [id number] Cmpnt Fem Kn Lt Cr Cmnt Prm Vngrd Intlk Implanted:Qty: 1 on 02/11/2018 by Toño Johnston MD at [facility] Left: Knee [employer] 10/21/2027 [id number] / / [id number] Brng [id number] Vngrd Arcm Kn Ant Stab Implanted:Qty: 1 on 02/11/2018 by Toño Johnston MD at [facility] Left: Knee [employer] 12/22/2022 [id number] / / [id number] Procedures Procedure Name Priority Date/Time Associated Diagnosis [...] LAB - CHEMISTRY ORDERABLES Fi nal Result Performing Organization Address City/State/[facility] Co de Phone Number [facility] [address] [place] [address] from Last 3 Months or Most Recently Relevant to Health Maintenance Insurance GREG ANTHEM Advance Directives * Full Code (Latest Code Status on File) Date Activated Date Inactivated Comments 02/11/2018 11:11 AM 02/14/2018 1:10 PM Care Teams Throat Cutter Relationship Specialty Start Date End Date Brittany Elias MD [address] [place] [phone] PCP - General 05/26/19 [place] [id number] [address] Orthopedic Surgery 06/06/14
--- OUTSIDE RECORDS SUMMARY | 2024-10-03 08:47 | XMS_ITS | Clinical Summary ---
Author Organization [facility] Address [address] [place] [address] Phone Care Team Providers Care Mechanical Inspector Name Role Phone Daly Pinto NP Primary Care Provider [phone] Allergies Active Allergy Reactions Criticality Noted Date [...] exists Insurance [employer] MEDICARE Care Teams Mechanical Inspector Relationship Specialty Start Date End Date Daly Pinto NP [address] [address] PCP - General Family Medicine 10/19/18
--- OUTSIDE RECORDS SUMMARY | 2024-10-03 08:47 | XMS_ITS | Continuity of Care Document ---
Author Organization [facility] [place] [place] Address [address] [place] [address] Phone Care Team Providers Care Magnet Maker Name Role Phone Tomas Clayton Unavailable Unavailable Procedures Procedure Date Eye Exam Established Pt Ophthalmoscopy, Subsequent Office Consultation Ophthalmoscopy Advance Directives Directive Yes / No Effective Date File Name No Information Encounters Encounter Description Practice Location Reason(s) For Visit Diagnoses Date Provider Providers Copied on Encounter [facility], [id number] [place] [address] [address], [place], [place], [id number], tel:[phone] [facility] No Information [address] [place], [place], [facility], . [phone] Referring Provider: Tomas Berg, [address] [place], [place], [facility]. tel:[phone] Office Consultation [facility], [address] [place] [address] [address], [place], [place], [id number], tel:[phone] [facility] No Information [address] [place], [place], [facility], [place]. tel:[phone] Referring Provider: Marcio Lagunas, [address], [place], [place], [facility]. tel:[phone] Family History Family Member Type Diagnosis Age [...]
--- OUTSIDE RECORDS SUMMARY | 2024-10-03 08:47 | XMS_ITS | Data Portability ---
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 Annual labs in 09/16. [email or web address] Not available 03/31/2024 10:11:32 07/21/2024 07/21/2024 68 [...] in 2-3 months. Annual labs in 09/16. [email or web address] Not available 07/21/2024 12:22:19 09/21/2024 09/21/2024 68 yo F with - WELL ADULT VISIT - HYPERCALEMIA - RT KNEE OA, severe - HLD - HTG - HTN - POLYARTHROPATHY - OA - GOUT - OSTEOPOROSIS - DEPRESSION - KIDNEY STONES - RECURRENT UTIs - AKSHAT (On Cpap) - OBESITY III X-ray knee: 11/09/23. CXR: 06/11/23. Annual labs: 09/02/23. D/w pt about her findings, recent labs & imagines and further plan of care. Will do routine labs. Advised pt to f/u with her Uro on this Thursday. Advised pt to f/u with Endo as directed. All meds verified with pt. Meds as directed. Cont OTC knee sleeve as directed. Diet and exercise explained in detail. BP diary education given. F/u with Endo as per schedule. Cont f/u with Uro at [place] as per schedule. Cont f/u with Ophtho [...] Pt got 2 doses. F/u in 2-3 weeks. Annual labs in 09/17. [email or web address] Not available 09/21/2024 14:27:40 Plan of Treatment Reminders Order Date Submit Date Provider Last Modified By Organization Details Last Modified Time Details Appointments Follow Up 15 2024 09:30A Odin Faye MD Not available Not available Not available Lab PTH (parathyr oid hormone), intact + calcium, serum or plasma [address] (Lab), [address] [place], [address], 09/28/2024 10:09:27 urinalysi s, dipstick 2024 025 [facility], [address] [place] [address], [address], 09/21/2024 14:45:15 CBC w/ auto diff [address] (Lab), [address] [place], [address], 09/21/2024 14:49:44 CMP, serum or plasma 2024 025 [facility] (Lab), [address] [place], [address], 09/21/2024 20:01:42 urinalysi s complete, reflex culture [address] (Lab), [address] [place], [address], 09/21/2024 14:48:30 uric acid, serum or plasma 2024 025 [facility] (Lab), [address] [place], [address], 09/21/2024 20:01:35 lipid panel, serum 2024 025 [facility] (Lab), [address] [place], [address], 09/21/2024 20:01:46 TSH, serum or plasma 2024 025 [facility] (Lab), [address] [place], [address], 09/21/2024 20:36:14 glycohemo globin, total, blood 2024 025 [facility] (Lab), [address] [place], [address], 09/21/2024 20:26:48 vitamin D, 25-hydrox y, total, serum [address] (Lab), [address] [place], [address], 09/28/2024 10:09:27 urinalysi s, dipstick 2024 025 [facility], [address] [place] [address], [address], 07/21/2024 12:23:41 culture, urine 2024 025 [facility] (Lab), [address] [place], [address], 07/22/2024 07:44:27 urinalysi s, dipstick 2024 025 [facility], [address] [place], [address], 06/15/2024 10:58:49 culture, urine + sensitivi ty 2024 025 [facility] (Lab), [address] [place], [address], 06/22/2024 08:03:50 PTH (parathyr oid hormone), intact + calcium, serum or plasma 2023 024 [email or web address] [facility] (Lab), [address] [place], [address], 04/07/2024 08:21:35 Referral urologist referral - Recurrent UTIs ++ Please call patient to schedule an appointme nt with Ap Greco. Thank you. 2024 025 [facility] [address], [place], [address], 07/22/2024 21:07:36 Procedures None recorded. Surgeries None recorded. Imaging None recorded. Medication Orders alendrona te 70 mg tablet 2024 025 [facility], [address] [place], [address], 09/21/2024 14:15:45 amlodipin e 5 mg tablet 2024 025 [facility], [address] [place], [address], 09/21/2024 14:15:41 losartan 100 mg tablet 2024 [facility], [address], [place], [place], [address], 09/21/2024 14:15:43 triamtere ne 37.5 mg-hydroc hlorothia zide 25 mg capsule 2024 [facility], [address], [place], [address], 09/21/2024 14:15:42 allopurin ol 300 mg tablet 2024 [facility], [address], [place], [place], [address], 09/21/2024 14:15:41 rosuvasta tin 5 mg tablet [address] [facility], [address], [place], [address], 09/21/2024 14:24:47 meloxicam 7.5 mg tablet [address] [facility], [address], [place], [address], 09/21/2024 14:17:29 escitalop marty 10 mg tablet 2024 025 [facility], [address], [place], [address], 09/21/2024 14:15:42 azithromy poli 250 mg tablet 2024 025 [facility], [address], [place], [address], 08/17/2024 15:00:30 prednison e 10 mg tablet 2024 025 [facility], [address], [place], [address], 08/17/2024 15:00:29 albuterol sulfate HFA 90 mcg/actua tion aerosol inhaler [address] [facility], [address], [place], [address], 08/17/2024 15:01:31 benzonata te 200 mg capsule 2024 [facility], [address], [place], [address], 08/17/2024 15:00:30 cephalexi n 500 mg capsule [address] [facility], [address], [place], [address], 08/17/2024 14:35:51 alendrona te 70 mg tablet 2024 025 [facility], [address], [place], [place], [address], 07/21/2024 12:05:25 losartan 100 mg tablet 2024 025 [facility], [address], [place], [address], 07/21/2024 12:05:30 triamtere ne 37.5 mg-hydroc hlorothia zide 25 mg capsule 2024 025 [facility], [address], [place], [address], 07/21/2024 12:05:23 amlodipin e 10 mg tablet 2024 025 [facility], [address], [place], [address], 07/21/2024 12:08:14 allopurin ol 300 mg tablet [address] [facility], [address], [place], [place], [address], 07/21/2024 12:11:32 rosuvasta tin 5 mg tablet 2024 025 [facility], [address], [place], [place], [address], 07/21/2024 12:05:30 meloxicam 7.5 mg tablet 2024 025 [facility], [address], [place], [address], 07/21/2024 12:05:27 escitalop marty 10 mg tablet 2024 025 [facility], [address], [place], [place], [address], 07/21/2024 12:05:26 Macrobid 100 mg capsule [address] [facility], [address], [place], [address], 07/21/2024 11:39:16 alendrona te 70 mg tablet 2023 [facility], [address], [place], [place], [address], 03/31/2024 09:52:20 amlodipin e 5 mg tablet [address] [facility], [address], [place], [address], 07/21/2024 12:22:39 losartan 100 mg tablet 2023 024 [facility], [address], [place], [place], [address], 03/31/2024 09:52:20 triamtere ne 37.5 mg-hydroc hlorothia zide 25 mg capsule 2023 [facility], [address], [place], [address], 03/31/2024 09:52:19 allopurin ol 300 mg tablet 2023 [facility], [address], [place], [address], 03/31/2024 09:52:19 rosuvasta tin 5 mg tablet 2023 [facility], [address], [place], [place], [address], 03/31/2024 09:52:22 tramadol 50 mg tablet 2023 [facility], [address], [place], [place], [address], 03/31/2024 10:05:52 meloxicam 7.5 mg tablet 2023 [facility], [address], [place], [place], [address], 03/31/2024 10:06:16 escitalop marty 10 mg tablet 2023 [facility], [address], [place], [address], 03/31/2024 09:52:19 Patient TargetsNo targets recorded. Patient Instructions Encounter Date Encounter Id Patient Instructions Last Modified By Organization Details Last Modified Time 03/31/2024 [id number] starting a weigh t loss plan: care instructions [email or web address] Not available 03/31/2024 09:52:10 07/21/2024 [id number] starting a weigh t loss plan: care instructions Not available 07/21/2024 12:05:10 09/21/2024 [id number] starting a weigh t loss plan: care instructions Not available 09/21/2024 14:15:29 Reason for Referral Urologist Referral for Blood in urine Recurrent UTIs ++ Please call patient to schedule an appointment with Ap Greco. Thank you. Referring Physician: Michael Faye, Family Medicine, Encounter Date: 07/21/2024 Results Created Date Observation Date Name Description Value Unit Range Abnormal Flag Note LastModifiedBy Organization Detail LastModifiedTime 03/31/20 24 03/31/2024 PARAT HYROI D HORM (PTH) INT.W /CA intact parathyroid hormone 90.5 pg/mL 24- high Not Available [facility] (Lab) [address] [place], [address], 03/31/2024 14:35:25 03/31/20 24 03/31/2024 PARAT HYROI D HORM (PTH) INT.W /CA calcium 11.6 mg/dL 8.4-10 .2 high Not Available [facility] (Lab) [address] [place], [address], 03/31/2024 14:35:25 06/15/19 25 06/15/2024 urina lysis , dipst ick Leukocytes (reference range: negative afshan/ l) Modera te Not Available [address], [address], 06/15/2024 10:46:33 06/15/19 25 06/15/2024 urina lysis , dipst ick Nitrite (reference rage: negative mg/dl) negati ve Not Available [address], [address], 06/15/2024 10:46:33 06/15/19 25 06/15/2024 urina lysis , dipst ick Urobilinogen (reference range: 0.2-1 mg/dl) 0.2 Not Available [address], [address], 06/15/2024 10:46:33 06/15/19 25 06/15/2024 urina lysis , dipst ick Protein (reference range: negative mg/dl) Trace Not Available [address], [address], 06/15/2024 10:46:33 06/15/19 25 06/15/2024 urina lysis , dipst ick pH (reference range: 5-7) 7.0 Not Available [address], [address], 06/15/2024 10:46:33 06/15/19 25 06/15/2024 urina lysis , dipst ick Blood (reference range: negative Cornelio/ l) Negati ve Not Available [address], [address], 06/15/2024 10:46:33 06/15/19 25 06/15/2024 urina lysis , dipst ick Specific [place] (reference range: 1.005-1.030) 1.010 Not Available [address], [address], 06/15/2024 10:46:33 06/15/19 25 06/15/2024 urina lysis , dipst ick Ketone (reference range: negative mg/dl) Negati ve Not Available [address], [address], 06/15/2024 10:46:33 06/15/19 25 06/15/2024 urina lysis , dipst ick Bilirubin (reference range: negative mg/dl) Negati ve Not Available [address], [address], 06/15/2024 10:46:33 06/15/19 25 06/15/2024 urina lysis , dipst ick Glucose (reference range: negative mg/dl) Negati ve Not Available [address], [address], 06/15/2024 10:46:33 06/15/19 25 06/15/2024 urina lysis , dipst ick Appearance Clear Not Available [address], [address], 06/15/2024 10:46:33 06/15/19 25 06/15/2024 urina lysis , dipst ick Color Yellow Not Available [address], [address], 06/15/2024 10:46:33 07/21/19 25 07/21/2024 CULTU RE URINE urc ===== ===== ===== ===== ===== ===== ===== ===== ===== ===== ===== ===== ===== ===== ===== ===== ===== ===== ===== ===== ===== ===== ===== ===== Speci men NO.: [id number] Exam Statu s: Final Proce dure: [...] [place] [id number] Oxida se React ion N Extra Sensi [...] furan toin <=32 S S Not Available [facility] (Lab) [address] [place], [address], 07/23/2024 07:54:30 07/21/19 25 07/21/2024 urina lysis , dipst ick Leukocytes (reference range: negative afshan/ l) Trace Not Available [facility], [address], 07/21/2024 12:04:50 07/21/19 25 07/21/2024 urina lysis , dipst ick Nitrite (reference rage: negative mg/dl) positi ve Not Available [address], [address], 07/21/2024 12:04:50 07/21/19 25 07/21/2024 urina lysis , dipst ick Urobilinogen (reference range: 0.2-1 mg/dl) 0.2 Not Available [address], [address], 07/21/2024 12:04:50 07/21/19 25 07/21/2024 urina lysis , dipst ick Protein (reference range: negative mg/dl) Negati ve Not Available [address], [address], 07/21/2024 12:04:50 07/21/19 25 07/21/2024 urina lysis , dipst ick pH (reference range: 5-7) 7.0 Not Available [address], [address], 07/21/2024 12:04:50 07/21/19 25 07/21/2024 urina lysis , dipst ick Blood (reference range: negative Cornelio/ l) Negati ve Not Available [address], [address], 07/21/2024 12:04:50 07/21/19 25 07/21/2024 urina lysis , dipst ick Specific [place] (reference range: 1.005-1.030) 1.010 Not Available [address], [address], 07/21/2024 12:04:50 07/21/19 25 07/21/2024 urina lysis , dipst ick Ketone (reference range: negative mg/dl) Negati ve Not Available [address] [place], [address], 07/21/2024 12:04:50 07/21/19 25 07/21/2024 urina lysis , dipst ick Bilirubin (reference range: negative mg/dl) Negati ve Not Available [address], [address], 07/21/2024 12:04:50 07/21/19 25 07/21/2024 urina lysis , dipst ick Glucose (reference range: negative mg/dl) Negati ve Not Available [address], [address], 07/21/2024 12:04:50 07/21/19 25 07/21/2024 urina lysis , dipst ick Appearance Clear Not Available [address], [address], 07/21/2024 12:04:50 07/21/19 25 07/21/2024 urina lysis , dipst ick Color Pale Yellow Not Available [address], [address], 07/21/2024 12:04:50 09/22/19 25 09/21/2024 URINA LYSIS COMPL ETE/I RIS W/RFX color COLORL ESS Not Available [facility] (Lab) [address] [place], [address], 09/21/2024 19:46:22 09/22/19 25 09/21/2024 URINA LYSIS COMPL ETE/I RIS W/RFX appear CLEAR Not Available [facility] (Lab) [address] [place], [address], 09/21/2024 19:46:22 09/22/19 25 09/21/2024 URINA LYSIS COMPL ETE/I RIS W/RFX specific gravity 1.006 1.001- 1.030 Not Available [facility] (Lab) [address] [place], [address], 09/21/2024 19:46:22 09/22/19 25 09/21/2024 URINA LYSIS COMPL ETE/I RIS W/RFX pH 7.0 pH_un its 5.0-9. 0 Not Available [facility] (Lab) [address] [place], [address], 09/21/2024 19:46:22 09/22/19 25 09/21/2024 URINA LYSIS COMPL ETE/I RIS W/RFX leukocytes 75 afshan/u L negati ve- abnormal Not Available [facility] (Lab) [address] [place], [address], 09/21/2024 19:46:22 09/22/19 25 09/21/2024 URINA LYSIS COMPL ETE/I RIS W/RFX nitrite NEGATI VE negati ve- Not Available [facility] (Lab) [address] [place], [address], 09/21/2024 19:46:22 09/22/19 25 09/21/2024 URINA LYSIS COMPL ETE/I RIS W/RFX protein NEGATI VE mg/dL negati ve- Not Available [facility] (Lab) [address] [place], [address], 09/21/2024 19:46:22 09/22/19 25 09/21/2024 URINA LYSIS COMPL ETE/I RIS W/RFX glucose NORMAL mg/dL normal - Not Available [facility] (Lab) [address] [place], [address], 09/21/2024 19:46:22 09/22/19 25 09/21/2024 URINA LYSIS COMPL ETE/I RIS W/RFX ketones NEGATI VE mg/dL negati ve- Not Available [facility] (Lab) [address] [place], [address], 09/21/2024 19:46:22 09/22/19 25 09/21/2024 URINA LYSIS COMPL ETE/I RIS W/RFX urobilinogen NORMAL mg/dL normal - Not Available [facility] (Lab) [address] [place], [address], 09/21/2024 19:46:22 09/22/19 25 09/21/2024 URINA LYSIS COMPL ETE/I RIS W/RFX bilirubin NEGATI VE mg/dL negati ve- Not Available [facility] (Lab) [address] [place], [address], 09/21/2024 19:46:22 09/22/19 25 09/21/2024 URINA LYSIS COMPL ETE/I RIS W/RFX blood NEGATI VE mg/dL negati ve- Not Available [facility] (Lab) [address] [place], [address], 09/21/2024 19:46:22 09/22/19 25 09/21/2024 URINA LYSIS COMPL ETE/I RIS W/RFX white blood cells 0-8 /i??h pfi?? 0-8 Not Available [facility] (Lab) [address] [place], [address], 09/21/2024 19:46:22 09/22/19 25 09/21/2024 URINA LYSIS COMPL ETE/I RIS W/RFX red blood cells 0-4 /i??h pfi?? 0-4 Not Available [facility] (Lab) [address] [place], [address], 09/21/2024 19:46:22 09/22/19 25 09/21/2024 URINA LYSIS COMPL ETE/I RIS W/RFX bacteria OCCASI ONAL none seen- abnormal Not Available [facility] (Lab) [address] [facility], [address], 09/21/2024 19:46:22 09/22/19 25 09/21/2024 URINA LYSIS COMPL ETE/I RIS W/RFX mucous OCCASI ONAL /i??l pfi?? none seen- abnormal Not Available [facility] (Lab) [address] [facility], [address], 09/21/2024 19:46:22 09/22/19 25 09/21/2024 URINA LYSIS COMPL ETE/I RIS W/RFX squamous epithelial FEW /i??l pfi?? abnormal Not Available [facility] (Lab) [address] [place], [address], 09/21/2024 19:46:22 09/22/19 25 09/21/2024 URINA LYSIS COMPL ETE/I RIS W/RFX tranistional epithelial FEW /i??l pfi?? abnormal Not Available [facility] [place] [facility] (Lab) [address] [place], [address], 09/21/2024 19:46:22 09/22/19 25 09/21/2024 CBC/C OMPLE TE BLD COUNT W/DIF F white blood cells 5.4 x10'3 /uL 4.2-10 .8 Not Available [facility] [place] [facility] (Lab) [address] [place], [address], 09/21/2024 19:51:16 09/22/19 25 09/21/2024 CBC/C OMPLE TE BLD COUNT W/DIF F red blood cells 4.23 x10'6 /uL 3.80-5 .20 Not Available [facility] [place] [facility] (Lab) [address] [place], [address], 09/21/2024 19:51:16 09/22/19 25 09/21/2024 CBC/C OMPLE TE BLD COUNT W/DIF F hemoglobin 13.7 g/dL 12.0-1 5.6 Not Available [facility] (Lab) [address] [place], [address], 09/21/2024 19:51:16 09/22/19 25 09/21/2024 CBC/C OMPLE TE BLD COUNT W/DIF F hematocrit 40.3 % 35.7-4 5.7 Not Available [facility] (Lab) [address] [place], [address], 09/21/2024 19:51:16 09/22/19 25 09/21/2024 CBC/C OMPLE TE BLD COUNT W/DIF F mean red cell volume 95.3 fL 82.0-9 9.0 Not Available [facility] (Lab) [address] [place], [address], 09/21/2024 19:51:16 09/22/19 25 09/21/2024 CBC/C OMPLE TE BLD COUNT W/DIF F mean red cell hemoglobin 32.4 pg 27.0-3 3.0 Not Available [facility] (Lab) [address] [place], [address], 09/21/2024 19:51:16 09/22/19 25 09/21/2024 CBC/C OMPLE TE BLD COUNT W/DIF F mean RBC HGB concentratio n 34.0 g/dL 31.0-3 6.0 Not Available [facility] (Lab) [address] [place], [address], 09/21/2024 19:51:16 09/22/19 25 09/21/2024 CBC/C OMPLE TE BLD COUNT W/DIF F red cell distribution width 14.3 % 11.8-1 5.5 Not Available [facility] (Lab) [address] [place], [address], 09/21/2024 19:51:16 09/22/19 25 09/21/2024 CBC/C OMPLE TE BLD COUNT W/DIF F platelets 289 x10'3 /uL 150-40 0 Not Available [facility] (Lab) [address] [place], [address], 09/21/2024 19:51:16 09/22/19 25 09/21/2024 CBC/C OMPLE TE BLD COUNT W/DIF F mean platelet volume 11.5 fL 9.0-12 .4 Not Available [facility] (Lab) [address] [place], [address], 09/21/2024 19:51:16 09/22/19 25 09/21/2024 CBC/C OMPLE TE BLD COUNT W/DIF F neutrophils 53.1 % 39.0-7 2.0 Not Available [facility] (Lab) [address] [place], [address], 09/21/2024 19:51:16 09/22/19 25 09/21/2024 CBC/C OMPLE TE BLD COUNT W/DIF F lymphocytes 32.1 % 16.0-4 7.0 Not Available [facility] [place] [facility] (Lab) [address] [place], [address], 09/21/2024 19:51:16 09/22/19 25 09/21/2024 CBC/C OMPLE TE BLD COUNT W/DIF F monocytes 7.2 % 5.0-12 .0 Not Available [facility] (Lab) [address] [place], [address], 09/21/2024 19:51:16 09/22/19 25 09/21/2024 CBC/C OMPLE TE BLD COUNT W/DIF F eosinophils 5.7 % 1.0-7. 0 Not Available [facility] (Lab) [address] [place], [address], 09/21/2024 19:51:16 09/22/19 25 09/21/2024 CBC/C OMPLE TE BLD COUNT W/DIF F basophils 1.5 % 0.0-2. 0 Not Available [facility] (Lab) [address] [place], [address], 09/21/2024 19:51:16 09/22/19 25 09/21/2024 CBC/C OMPLE TE BLD COUNT W/DIF F immature granulocytes 0.4 % 0.00-0 .50 Not Available [facility] [place] [facility] (Lab) [address] [place], [address], 09/21/2024 19:51:16 09/22/1909/21/2024 CBC/C OMPLE TE BLD COUNT W/DIF F neutrophils, absolute count 2.88 x10'3 /uL 1.5-8. 0 [id number]|2024-10-03 08:47:00|2024-10-03 08:46:00|XMS_ITS|BKG DAEMON|External Medical Summaries|[id number]|" Data Portability Created on: October 03, 2024 Rody Monson .[id number] : 1955 Sex: Female Author Organization [employer] [facility] Address [address] [place] [address] Assessment Encounter Date Assessment Date Assessment LastModified by Organization Details LastModified Time 08/06/2024 08/06/2024 Ddx: UTI, STI, Pyelonephritis A: Patient s symptoms and history consistent with urinary tract infection. P: Provided counseling/treatme nt recommendations as noted below: Medication prescribed: See Rx section If any medications were discussed (either prescription or [id number]), please review any potential side effects before [...] Cipro 250 mg tablet 025 08/07/19 25 [id number], [address] [place], [address], 18:41:41 Patient TargetsNo targets recorded. Patient Instructions Encounter Date Encounter Id Patient Instructions Last Modified By Organization Details Last Modified Time 08/06/2024 [id number] Urinary Tract In[facility] (UTI) in [facility] available 08/07/2024 13:03:26 Please see you PCP this Thursday for in person evaluation If symptoms do not improve in 48 hrs must be seen at the F/U with Urologist as discussed asbun Not available 08/07/2024 13:03:24 Reason for Referral None Reported. Medical Equipment None Reported. Allergies Allergen ID Allergen Name Allergen Category Reaction Reaction Severity Criticality Documentation Date Start Date Code Code System Note Provider Name and Address Organization Details Recorded Time 510265 Macrobid medicatio n Not available Not available Not available 08/06/2024 09041 1 RxNorm Not Available Included [facility] 17:37:03 840853 Substance with sulfonami de structure and antibacte rial mechanism of action (substanc e) medicatio n Not available Not available Not available 08/06/2024 36308 8003 SNOMED Not Available Included [facility] 17:37:03 Medications Name Sig Start Date Stop [...] SNOMED-CT Code Diagnosis ICD10 Code Diagnosis Note [id number] Maggie Chen [place] [address] [place] [address] 08/06/2024 17:41:34 08/06/2024 17:47:23 Patient not examined [id number] Z53.9 [id number] Maggie Chen [facility] [address] [place] [address] 08/06/2024 17:50:32 08/07/2024 15:27:58 Acute urinary tract infection [id number] N39.0 Health Concerns Section Related Observation LastModified by Organization Detai ls LastModified Time None Recorded Concern Status LastModified by Organization Details LastModified Time None Recorded Advance Directives Directive None Recorded Payers Insurance Date Sequence Insurance Name Policy Number Policy Dunham Covered Member ID Dunham Member ID Guarantor Name 08/06/2024 [employer] [id number] Rody Monson [id number] Rody Ermias 08/06/2024 3 *SELF PAY* [id number] Rody Ermias [id number] Rody Ermias 08/06/2024 1 *SELF PAY* Laith Monson 08/06/2024 1 [facility] [id number] Rodykenia Monson [id number] Rody Ermias 08/06/2024 2 [facility] [id number] Rody Ermias [id number] Rody Ermias Notes Date Note Type Note Provider Name [...] History of kidney stones: mark anthony Chen, [address], [place], [address], [facility] 08/07/2024 13:03:28 OBGyn Episode No OBEpisode recorded. "
--- OUTSIDE RECORDS SUMMARY | 2024-10-03 08:47 | XMS_ITS | Clinical Summary ---
Author Organization [facility] Address [address] [place] [address] Phone Care Team Providers Care Finance Manager Name Role Phone Daly Pinto LIFESTYLE BLOCK FARMER, CHIROPRACTIC ASSISTANT Primary Care Pro vider Medications Aspirin 81 [...] Comments Blood Pressure 130/86 04/08/2019 8:56 AM SPOOLING MACHINE OPERATOR Pulse 70 04/08/2019 8:56 AM SPOOLING MACHINE OPERATOR Temperature - - Respiratory Rate - - Oxygen Saturation 98% 04/08/2019 8:56 AM SPOOLING MACHINE OPERATOR Inhaled Oxygen Concentration - - Weight 108 kg (238 lb) 04/08/2019 8:56 AM SPOOLING MACHINE OPERATOR Height 160 cm (5' 3 ) 04/08/2019 8:56 AM SPOOLING MACHINE OPERATOR Body Mass Index 42.16 04/08/2019 8:56 AM SPOOLING MACHINE OPERATOR Plan of Treatment Health Maintenance Due [...] Most Recently Relevant to Health Maintenance Insurance [facility] Care Teams Finance Manager Relationship Specialty Start Date End Date Daly Pinto APRN, CHIROPRACTIC ASSISTANT [address] [place], [place] [id number] PCP - General Certified Nurse Practitioner 11/02/18
--- OUTSIDE RECORDS SUMMARY | 2024-10-03 08:47 | XMS_ITS | Clinical Summary ---
Author Organization [facility] Address [facility] [place] [address] Care Team Providers Care Statement Clerks Manager Name Role Phone Unavailable Primary Care Provider [...]
[2024-10-03 10:08] LABS: Anion Gap 10 mmol/L (4-12); Blood Urea Nitrogen 28 mg/dL (7-17); Calcium 11.1 mg/dL (8.4-10.2); Carbon Dioxide 26 mmol/L (22-30); Chloride 104 mmol/L (98-107); Estimated Glomerular Filt Rate > 60; Glucose 95 mg/dL (65-110); Potassium 4.3 mmol/L (3.4-5.0); Sodium 140 mmol/L (137-145)
[2024-10-03 10:16] LABS: Prothrombin Time 13.5 Seconds (11.1-14.7)
[2024-10-03 10:17] LABS: Partial Thromboplastin Time 22.9 Seconds (22.3-36.8)
== END 2024-10-03 08:40 | disposition home or self-care (01) ==
PROVIDERS: Anesthesiology; PCP Family Medicine; Visit Provider Urology
DX: N20.1 Calculus of ureter (principal); Z51.81 Encounter for therapeutic drug level monitoring
CPT/HCPCS: 36415; 80048; 85610; 85730; 87086

== ENCOUNTER 2024-10-14 01:08 | Day surgery (SDC) | payer MEDICARE, SELFPAY ==
[2024-09-30 12:58] VITALS: BMI 41.0
--- NOTE | 2024-09-30 13:25 | PC.NURSE ---
Report to the Outpatient Waiting Room, entrance under the green pavilion located off [facility], at time ___6:30AM____ on date ___10/14/24____. Planned Procedure Time: ___8:30AM .? Time changes happen often and if your time is changed the preop area will call you the afternoon before. - You and your visitor will be asked to self-screen and do not enter if you have any COVID symptoms. Please call surgeon if you need to reschedule. - A mask is optional within the hospital at this time. Patients may have clear liquids (water, carbonated beverages, clear teas, apple juice) until 3 hours prior to surgery (5:30AM) with a maximum of 20 ounces. - No food from midnight until time of surgery and no smoking, or chewing tobacco (or any form of nicotine). No chewing gum, candy or mints. Take only the following medications with a SIP of water on the morning of surgery: ____AMLODIPINE, CEPHALEXIN DO NOT STOP ANY OF YOUR OTHER PRESCRIPTION MEDICATIONS PRIOR TO SURGERY EXCEPT THE FOLLOWING Hold all vitamins and supplements for 3 days per anesthesiologist. Medications to discontinue per physician __HOLD ASPIRIN, MELOXICAM(NSAIDS) AND FISH OIL 7 DAYS PRE-OP PER DR DIAZ Date to take last dose 10/06/24 Please no make-up, nail norwegian, hairspray, perfume, deodorant, or body powder the day of surgery.? No jewelry (including any body piercings) or valuables the day of surgery, leave them at home.? Please take a shower or bath the night before, or the morning of, surgery with an antibacterial soap.? Wear comfortable, loose fitting clothing.? - Jewelry must be removed prior to entering the operating room.? Rings and piercings that are not removed may be cut off. - The hospital will not accept responsibility for valuables.? - Please leave all valuables, including medications, at home the day of surgery. If you are going home after surgery, a licensed school bus driver/teacher assistant must drive you home.? - NO public transportation without another adult if you receive anesthesia. - We recommend that an adult stay with you for 24 hours following discharge. - We also recommend that you do not drive, make important decision, drink alcoholic beverages, or take any drugs that were not prescribed by your health care provider for at least 24 hours after your discharge time. Follow any additional instructions given to you from your surgeon. Telephone instructions given to ___PATIENT and asked if any additional questions and then verbalized understanding. Patient advised to call surgeon office or pre surgery nurse liaison [phone] if any additional questions.
--- NOTE | ~2024-10-14 | XR_ITS ---
Supine and upright views of the abdomen Clinical history: Lithotripsy Findings: Bowel gas pattern is nonspecific. No evidence for obstruction or free air. Probable multipl e left renal stones, measuring up to possibly 17 mm in diameter. Osseous structures are intact. Impression: Multiple left renal stones, as detailed above. Reviewed, dictated and finalized at [facility]. Impression: Multiple left renal stones, as detailed above.
--- OUTSIDE RECORDS SUMMARY | 2024-10-14 01:11 | XMS_ITS | Data Portability ---
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 Annual labs in 09/16. [email or web address] Not available 07/21/2024 12:22:19 09/21/2024 09/21/2024 68 [...] per schedule. Cont f/u with Uro at [facility] as per schedule. Cont f/u with Ophtho [...] in 2-3 weeks. Annual labs in 09/17. [email or web address] Not available 09/21/2024 14:27:40 10/05/2024 10/05/2024 68 yo F with - HYPERPARATHYROIDIS M, new - HYPERCALEMIA, chronic - RT KNEE OA, severe - HLD - HTG - HTN - POLYARTHROPATHY - OA - GOUT - OSTEOPOROSIS - DEPRESSION - KIDNEY STONES - RECURRENT UTIs - AKSHAT (On Cpap) - OBESITY III Annual labs: 09/21/24. X-ray knee: 11/09/23. CXR: 06/11/23. Annual labs: 09/02/23. D/w pt about her findings, recent labs & imagines and further plan of care. Advised pt to f/u with Endo soon. Info printed and given to pt. All meds verified with pt. Meds as directed. Cont OTC knee sleeve as directed. Diet and exercise explained in detail. BP diary education given. F/u with Endo as per schedule. Cont f/u with Uro at [facility] as per schedule. Cont f/u with Ophtho [...] - Pt got 2 doses. F/u in 4 months. Lipids in 02/16. Annual labs in 09/17. [email or web address] Not available 10/05/2024 10:31:44 Plan of Treatment Reminders Order Date Submit Date Provider Last Modified By Organization Details Last Modified Time Details Appointments Follow Up 15 2024 08:45A Odin Faye MD Not available Not available Not available Lab lipid panel, serum 2024 025 [facility] (Lab), [address] [place], [address], 10/05/2024 10:27:38 PTH (parathyr oid hormone), intact + calcium, serum or plasma 2024 025 [email or web address] [facility] (Lab), [address] [place], [address], 09/28/2024 10:09:27 urinalysi s, dipstick 2024 025 ЕЛЕНА [facility], [address] [place], [address], 09/21/2024 14:45:15 CBC w/ auto diff [address] (Lab), [address] [place], [address], 09/21/2024 14:49:44 CMP, serum or plasma 2024 025 [facility] (Lab), [address] [place], [address], 09/21/2024 20:01:42 urinalysi s complete, reflex culture [address] (Lab), [address] [place], [address], 09/21/2024 14:48:30 uric acid, serum or plasma 2024 025 [facility] (Lab), [address] [place], [address], 09/21/2024 20:01:35 lipid panel, serum 2024 025 [facility] (Lab), [address] [place], [address], 09/21/2024 20:01:46 TSH, serum or plasma 2024 025 [facility] (Lab), [address] [place], [address], 09/21/2024 20:36:14 glycohemo globin, total, blood 2024 025 [facility] (Lab), [address] [place], [address], 09/21/2024 20:26:48 vitamin D, 25-hydrox y, total, serum 2024 025 [email or web address] [facility] (Lab), [address] [place], [address], 09/28/2024 10:09:27 urinalysi s, dipstick 2024 025 [facility], [address] [place] [address], [address], 07/21/2024 12:23:41 culture, urine 2024 025 [facility] (Lab), [address] [place], [address], 07/22/2024 07:44:27 urinalysi s, dipstick 2024 025 [facility], [address] [place] [address], [address], 06/15/2024 10:58:49 culture, urine + sensitivi ty 2024 025 [facility] (Lab), [address] [place], [address], 06/22/2024 08:03:50 Referral endocrino logy referral - [place]. Please call patient to schedule an appointme nt. Thank you. 2024 025 [facility] [address] [facility] [address], [place], [address], 10/07/2024 15:17:31 urologist referral - Recurrent UTIs ++ Please call patient to schedule an appointme nt with Ap Greco. Thank you. 2024 025 [facility], [address], [address], [place], [address], 07/22/2024 21:07:36 Procedures None recorded. Surgeries None recorded. Imaging None recorded. Medication Orders alendrona te 70 mg tablet 2024 [facility], [address], [place], [place], [address], 10/05/2024 10:27:49 amlodipin e 5 mg tablet 2024 [facility], [address], [place], [place], [address], 10/05/2024 10:27:50 losartan 100 mg tablet 2024 [facility], [address], [place], [place], [address], 10/05/2024 10:27:46 triamtere ne 37.5 mg-hydroc hlorothia zide 25 mg capsule 2024 [facility], [address], [place], [place], [address], 10/05/2024 10:27:50 rosuvasta tin 10 mg tablet 2024 025 [facility], [address], [place], [address], 10/05/2024 10:27:47 allopurin ol 300 mg tablet 2024 025 [facility], [address], [place], [address], 10/05/2024 10:27:47 meloxicam 7.5 mg tablet 2024 025 [facility], [address], [place], [place], [address], 10/05/2024 10:27:47 escitalop marty 10 mg tablet 2024 025 [facility], [address], [place], [place], [address], 10/05/2024 10:27:49 alendrona te 70 mg tablet 2024 [facility], [address], [place], [place], [address], 09/21/2024 14:15:45 amlodipin e 5 mg tablet 2024 [facility], [address], [place], [address], 09/21/2024 14:15:41 losartan 100 mg tablet 2024 [facility], [address], [place], [place], [address], 09/21/2024 14:15:43 triamtere ne 37.5 mg-hydroc hlorothia zide 25 mg capsule 2024 [facility], [address], [place], [address], 09/21/2024 14:15:42 allopurin ol 300 mg tablet 2024 [facility], [address], [place], [address], 09/21/2024 14:15:41 rosuvasta tin 5 mg tablet [address] [facility], [address], [place], [address], 10/05/2024 10:30:40 meloxicam 7.5 mg tablet [address] [facility], [address], [place], [place], [address], 09/21/2024 14:17:29 escitalop marty 10 mg tablet 2024 025 [facility], [address], [place], [address], 09/21/2024 14:15:42 azithromy poli 250 mg tablet 2024 [facility], [address], [place], [address], 08/17/2024 15:00:30 prednison e 10 mg tablet 2024 025 [facility], [address], [place], [address], 08/17/2024 15:00:29 albuterol sulfate HFA 90 mcg/actua tion aerosol inhaler [address] [facility], [address], [place], [address], 08/17/2024 15:01:31 benzonata te 200 mg capsule 2024 025 [facility], [address], [place], [address], 08/17/2024 15:00:30 cephalexi n 500 mg capsule [address] [facility], [address], [place], [address], 08/17/2024 14:35:51 alendrona te 70 mg tablet 2024 025 [facility], [address], [place], [address], 07/21/2024 12:05:25 losartan 100 mg tablet 2024 025 [facility], [address], [place], [address], 07/21/2024 12:05:30 triamtere ne 37.5 mg-hydroc hlorothia zide 25 mg capsule 2024 [facility], [address], [place], [place], [address], 07/21/2024 12:05:23 amlodipin e 10 mg tablet 2024 [facility], [address], [place], [address], 07/21/2024 12:08:14 allopurin ol 300 mg tablet [address] [facility], [address], [place], [place], [address], 07/21/2024 12:11:32 rosuvasta tin 5 mg tablet [address] [place] [address] Pharmacy [address], [address], [place], [address], 10/05/2024 10:30:40 meloxicam 7.5 mg tablet 2024 [facility], [address], [place], [address], 07/21/2024 12:05:27 escitalop marty 10 mg tablet 2024 [facility], [address], [place], [address], 07/21/2024 12:05:26 Macrobid 100 mg capsule [address] [facility], [address], [place], [address], 07/21/2024 11:39:16 Patient TargetsNo targets recorded. Patient Instructions Encounter Date Encounter Id Patient Instructions Last Modified By Organization Details Last Modified Time 07/21/2024 [id number] starting a weigh t loss plan: care instructions [email or web address] Not available 07/21/2024 12:05:10 09/21/2024 [id number] starting a weigh t loss plan: care instructions [email or web address] Not available 09/21/2024 14:15:29 10/05/2024 [id number] starting a weigh t loss plan: care instructions [email or web address] Not available 10/05/2024 10:27:38 Reason for Referral Urologist Referral for Blood in urine Recurrent UTIs ++ Please call patient to schedule an appointment with Ap Greco. Thank you. Referring Physician: Michael Faye [facility], Encounter Date: 07/21/2024 Endocrinology Referral for H yperparathyroidism [place], [place]. Please call patient to schedule an appointment. Thank you. Referring Physician: Michael Faye [facility], Encounter Date: 10/05/2024 Results Created Date Observation Date Name Description Value Unit Range Abnormal Flag Note LastModifiedBy Organization Detail LastModifiedTime 06/15/19 25 06/15/2024 urina lysis , dipst ick Leukocytes (reference range: negative afshan/ l) Modera te Not Available [address], [address], 06/15/2024 10:46:33 06/15/19 25 06/15/2024 urina lysis , dipst ick Nitrite (reference rage: negative mg/dl) negati ve Not Available [address], [address], 06/15/2024 10:46:33 06/15/19 25 06/15/2024 urina lysis , dipst ick Urobilinogen (reference range: 0.2-1 mg/dl) 0.2 Not Available [address], [address], 06/15/2024 10:46:33 06/15/19 25 06/15/2024 urina lysis , dipst ick Protein (reference range: negative mg/dl) Trace Not Available [address], [address], 06/15/2024 10:46:33 06/15/19 25 06/15/2024 urina lysis , dipst ick pH (reference range: 5-7) 7.0 Not Available [address], [address], 06/15/2024 10:46:33 06/15/19 25 06/15/2024 urina lysis , dipst ick Blood (reference range: negative Cornelio/ l) Negati ve Not Available [address], [address], 06/15/2024 10:46:33 06/15/19 25 06/15/2024 urina lysis , dipst ick Specific [place] (reference range: 1.005-1.030) 1.010 Not Available [address], [address], 06/15/2024 10:46:33 06/15/19 25 06/15/2024 urina lysis , dipst ick Ketone (reference range: negative mg/dl) Negati ve Not Available [address], [address], 06/15/2024 10:46:33 06/15/19 25 06/15/2024 urina lysis , dipst ick Bilirubin (reference range: negative mg/dl) Negati ve Not Available [address], [address], 06/15/2024 10:46:33 06/15/19 25 06/15/2024 urina lysis , dipst ick Glucose (reference range: negative mg/dl) Negati ve Not Available [address], [address], 06/15/2024 10:46:33 06/15/19 25 06/15/2024 urina lysis , dipst ick Appearance Clear Not Available [address], [address], 06/15/2024 10:46:33 06/15/19 25 06/15/2024 urina lysis , dipst ick Color Yellow Not Available [address], [address], 06/15/2024 10:46:33 07/21/19 25 07/21/2024 CULTU RE URINE urc ===== ===== ===== ===== ===== ===== ===== ===== ===== ===== ===== ===== ===== ===== ===== ===== ===== ===== ===== ===== ===== ===== ===== ===== Speci men NO.: [id number] Exam Statu s: Final Proce dure: [...] Genta [place]in [address] [place] [id number] Oxida se React ion N Extra Sensi [...] furan toin <=32 S S Not Available [facility] (Lab) [address] [place], [address], 07/23/2024 07:54:30 07/21/19 25 07/21/2024 urina lysis , dipst ick Leukocytes (reference range: negative afshan/ l) Trace Not Available [address], [address], 07/21/2024 12:04:50 07/21/19 25 07/21/2024 urina lysis , dipst ick Nitrite (reference rage: negative mg/dl) positi ve Not Available [address], [address], 07/21/2024 12:04:50 07/21/19 25 07/21/2024 urina lysis , dipst ick Urobilinogen (reference range: 0.2-1 mg/dl) 0.2 Not Available [address], [address], 07/21/2024 12:04:50 07/21/19 25 07/21/2024 urina lysis , dipst ick Protein (reference range: negative mg/dl) Negati ve Not Available [address], [address], 07/21/2024 12:04:50 07/21/19 25 07/21/2024 urina lysis , dipst ick pH (reference range: 5-7) 7.0 Not Available [address], [address], 07/21/2024 12:04:50 07/21/19 25 07/21/2024 urina lysis , dipst ick Blood (reference range: negative Cornelio/ l) Negati ve Not Available [address], [address], 07/21/2024 12:04:50 07/21/19 25 07/21/2024 urina lysis , dipst ick Specific [place] (reference range: 1.005-1.030) 1.010 Not Available [address], [address], 07/21/2024 12:04:50 07/21/19 25 07/21/2024 urina lysis , dipst ick Ketone (reference range: negative mg/dl) Negati ve Not Available [address], [address], 07/21/2024 12:04:50 07/21/19 25 07/21/2024 urina lysis , dipst ick Bilirubin (reference range: negative mg/dl) Negati ve Not Available [address], [address], 07/21/2024 12:04:50 07/21/19 25 07/21/2024 urina lysis , dipst ick Glucose (reference range: negative mg/dl) Negati ve Not Available [address], [address], 07/21/2024 12:04:50 07/21/19 25 07/21/2024 urina lysis , dipst ick Appearance Clear Not Available [address], [address], 07/21/2024 12:04:50 07/21/19 25 07/21/2024 urina lysis , dipst ick Color Pale Yellow Not Available [address], [address], 07/21/2024 12:04:50 09/22/19 25 09/21/2024 URINA LYSIS COMPL ETE/I RIS W/RFX color COLORL ESS Not Available [facility] (Lab) [address] [place], [address], 09/21/2024 19:46:22 09/22/19 25 09/21/2024 URINA LYSIS COMPL ETE/I RIS W/RFX appear CLEAR Not Available [facility] (Lab) [address] [place], [address], 09/21/2024 19:46:22 09/22/19 25 09/21/2024 URINA LYSIS COMPL ETE/I RIS W/RFX specific gravity 1.006 1.001- 1.030 Not Available [facility] (Lab) [address] [place], [address], 09/21/2024 19:46:22 09/22/19 25 09/21/2024 URINA LYSIS COMPL ETE/I RIS W/RFX pH 7.0 pH_un its 5.0-9. 0 Not Available [facility] (Lab) [address] [place], [address], 09/21/2024 19:46:22 09/22/19 25 09/21/2024 URINA LYSIS COMPL ETE/I RIS W/RFX leukocytes 75 afshan/u L negati ve- abnormal Not Available [facility] (Lab) [address] [place], [address], 09/21/2024 19:46:22 09/22/19 25 09/21/2024 URINA LYSIS COMPL ETE/I RIS W/RFX nitrite NEGATI VE negati ve- Not Available [facility] (Lab) [address] [place], [address], 09/21/2024 19:46:22 09/22/19 25 09/21/2024 URINA LYSIS COMPL ETE/I RIS W/RFX protein NEGATI VE mg/dL negati ve- Not Available [facility] (Lab) [address] [place], [address], 09/21/2024 19:46:22 09/22/19 25 09/21/2024 URINA LYSIS COMPL ETE/I RIS W/RFX glucose NORMAL mg/dL normal - Not Available [facility] (Lab) [address] [place], [address], 09/21/2024 19:46:22 09/22/19 25 09/21/2024 URINA LYSIS COMPL ETE/I RIS W/RFX ketones NEGATI VE mg/dL negati ve- Not Available [facility] (Lab) [address] [place], [address], 09/21/2024 19:46:22 09/22/19 25 09/21/2024 URINA LYSIS COMPL ETE/I RIS W/RFX urobilinogen NORMAL mg/dL normal - Not Available [facility] (Lab) [address] [place], [address], 09/21/2024 19:46:22 09/22/19 25 09/21/2024 URINA LYSIS COMPL ETE/I RIS W/RFX bilirubin NEGATI VE mg/dL negati ve- Not Available [facility] (Lab) [address] [place], [address], 09/21/2024 19:46:22 09/22/19 25 09/21/2024 URINA LYSIS COMPL ETE/I RIS W/RFX blood NEGATI VE mg/dL negati ve- Not Available [facility] (Lab) [address] [place], [address], 09/21/2024 19:46:22 09/22/19 25 09/21/2024 URINA LYSIS COMPL ETE/I RIS W/RFX white blood cells 0-8 /i??h pfi?? 0-8 Not Available [facility] (Lab) [address] [place], [address], 09/21/2024 19:46:22 09/22/19 25 09/21/2024 URINA LYSIS COMPL ETE/I RIS W/RFX red blood cells 0-4 /i??h pfi?? 0-4 Not Available [facility] (Lab) [address] [place], [address], 09/21/2024 19:46:22 09/22/19 25 09/21/2024 URINA LYSIS COMPL ETE/I RIS W/RFX bacteria OCCASI ONAL none seen- abnormal Not Available [facility] (Lab) [address] [place], [address], 09/21/2024 19:46:22 09/22/19 25 09/21/2024 URINA LYSIS COMPL ETE/I RIS W/RFX mucous OCCASI ONAL /i??l pfi?? none seen- abnormal Not Available [facility] (Lab) [address] [place], [address], 09/21/2024 19:46:22 09/22/19 25 09/21/2024 URINA LYSIS COMPL ETE/I RIS W/RFX squamous epithelial FEW /i??l pfi?? abnormal Not Available [facility] (Lab) [address] [place], [address], 09/21/2024 19:46:22 09/22/19 25 09/21/2024 URINA LYSIS COMPL ETE/I RIS W/RFX tranistional epithelial FEW /i??l pfi?? abnormal Not Available [facility] (Lab) [address] [place], [address], 09/21/2024 19:46:22 09/22/19 25 09/21/2024 CBC/C OMPLE TE BLD COUNT W/DIF F white blood cells 5.4 x10'3 /uL 4.2-10 .8 Not Available [facility] (Lab) [address] [place], [address], 09/21/2024 19:51:16 09/22/19 25 09/21/2024 CBC/C OMPLE TE BLD COUNT W/DIF F red blood cells 4.23 x10'6 /uL 3.80-5 .20 Not Available [facility] (Lab) [address] [place], [address], 09/21/2024 19:51:16 09/22/19 25 09/21/2024 CBC/C OMPLE TE BLD COUNT W/DIF F hemoglobin 13.7 g/dL 12.0-1 5.6 Not Available [facility] (Lab) [address] [place], [address], 09/21/2024 19:51:16 09/22/19 25 09/21/2024 CBC/C OMPLE TE BLD COUNT W/DIF F hematocrit 40.3 % 35.7-4 5.7 Not Available [facility] (Lab) [address] [place], [address], 09/21/2024 19:51:16 09/22/19 25 09/21/2024 CBC/C OMPLE TE BLD COUNT W/DIF F mean red cell volume 95.3 fL 82.0-9 9.0 Not Available [facility] (Lab) [address] [place], [address], 09/21/2024 19:51:16 09/22/19 25 09/21/2024 CBC/C OMPLE TE BLD COUNT W/DIF F mean red cell hemoglobin 32.4 pg 27.0-3 3.0 Not Available [facility] (Lab) [address] [place], [address], 09/21/2024 19:51:16 09/22/19 25 09/21/2024 CBC/C OMPLE TE BLD COUNT W/DIF F mean RBC HGB concentratio n 34.0 g/dL 31.0-3 6.0 Not Available [facility] (Lab) [address] [place], [address], 09/21/2024 19:51:16 09/22/1909/21/2024 CBC/C OMPLE TE BLD COUNT W/DIF F red cell distribution width 14.3 % 11.8-1 5.5 Not Available [facility] (Lab) [address] [place], [address], 09/21/2024 19:51:16 09/22/19 25 09/21/2024 CBC/C OMPLE TE BLD COUNT W/DIF F platelets 289 x10'3 /uL 150-40 0 Not Available [facility] (Lab) [address] [place], [address], 09/21/2024 19:51:16 09/22/19 25 09/21/2024 CBC/C OMPLE TE BLD COUNT W/DIF F mean platelet volume 11.5 fL 9.0-12 .4 Not Available [facility] (Lab) [address] [place], [address], 09/21/2024 19:51:16 09/22/19 25 09/21/2024 CBC/C OMPLE TE BLD COUNT W/DIF F neutrophils 53.1 % 39.0-7 2.0 Not Available [facility] (Lab) [address] [place], [address], 09/21/2024 19:51:16 09/22/19 25 09/21/2024 CBC/C OMPLE TE BLD COUNT W/DIF F lymphocytes 32.1 % 16.0-4 7.0 Not Available [facility] (Lab) [address] [place], [address], 09/21/2024 19:51:16 09/22/19 25 09/21/2024 CBC/C OMPLE TE BLD COUNT W/DIF F monocytes 7.2 % 5.0-12 .0 Not Available [facility] (Lab) [address] [place], [address], 09/21/2024 19:51:16 09/22/1909/21/2024 CBC/C OMPLE TE BLD COUNT W/DIF F eosinophils 5.7 % 1.0-7. 0 Not Available [facility] (Lab) [address] [place], [address], 09/21/2024 19:51:16 09/22/19 25 09/21/2024 CBC/C OMPLE TE BLD COUNT W/DIF F basophils 1.5 % 0.0-2. 0 Not Available [facility] (Lab) [address] [place], [address], 09/21/2024 19:51:16 09/22/1909/21/2024 CBC/C OMPLE TE BLD COUNT W/DIF F immature granulocytes 0.4 % 0.00-0 .50 Not Available [facility] (Lab) [address] [place], [address], 09/21/2024 19:51:16 09/22/1909/21/2024 CBC/C OMPLE TE BLD COUNT W/DIF F neutrophils, absolute count 2.88 x10'3 /uL 1.5-8. 0 Not Available [facility] (Lab) [address] [place], [address], 09/21/2024 19:51:16 09/22/1909/21/2024 CBC/C OMPLE TE BLD COUNT W/DIF F lymphocytes, absolute count 1.74 x10'3 /uL 1.07-3 .43 Not Available [facility] (Lab) [address] [place], [address], 09/21/2024 19:51:16 09/22/1909/21/2024 CBC/C OMPLE TE BLD COUNT W/DIF F monocytes, absolute count 0.39 x10'3 /uL 0.29-0 .99 Not Available [facility] (Lab) [address] [place], [address], 09/21/2024 19:51:16 09/22/1909/21/2024 CBC/C OMPLE TE BLD COUNT W/DIF F eosinophils, absolute count 0.31 x10'3 /uL 0.02-0 .53 Not Available [facility] (Lab) [address] [place], [address], 09/21/2024 19:51:16 09/22/1909/21/2024 CBC/C OMPLE TE BLD COUNT W/DIF F basophils, absolute count 0.08 x10'3 /uL 0.01-0 .08 Not Available [facility] (Lab) [address] [place], [address], 09/21/2024 19:51:16 09/22/19 25 09/21/2024 CBC/C OMPLE TE BLD COUNT W/DIF F immature granulocytes ,absolute 0.02 x10'3 /uL 0.00-0 .05 Not Available [facility] (Lab) [address] [place], [address], 09/21/2024 19:51:16 09/22/19 25 09/21/2024 CBC/C OMPLE TE BLD COUNT W/DIF F nucleated red blood cells 0.0 % -0 Not Available [facility] (Lab) [address] [place], [address], 09/21/2024 19:51:16 09/22/19 25 09/21/2024 CBC/C OMPLE TE BLD COUNT W/DIF F NRBC# 0.00 x10'3 /uL Not Available [facility] (Lab) [address] [place], [address], 09/21/2024 19:51:16 09/22/19 25 09/21/2024 URIC ACID SERUM uric acid 5.1 mg/dL 2.5-6. 2 Not Available [facility] (Lab) [address] [place], [address], 09/21/2024 20:01:35 09/22/19 25 09/21/2024 COMPR EHENS POOL METAB OLIC PANEL sodium 136 mmol/ L 137-14 5 low Not Available [facility] (Lab) [address] [place], [address], 09/21/2024 20:01:41 09/22/19 25 09/21/2024 COMPR EHENS POOL METAB OLIC PANEL potassium 5.0 mmol/ L 3.5-5. 1 Not Available [facility] (Lab) [address] [place], [address], 09/21/2024 20:01:41 09/22/19 25 09/21/2024 COMPR EHENS POOL METAB OLIC PANEL chloride 100 mmol/ L 98-107 Not Available [facility] (Lab) [address] [place], [address], 09/21/2024 20:01:41 09/22/19 25 09/21/2024 COMPR EHENS POOL METAB OLIC PANEL carbon dioxide 25 mmol/ L 22-30 Not Available [facility] (Lab) [address] [place], [address], 09/21/2024 20:01:41 09/22/19 25 09/21/2024 COMPR EHENS POOL METAB OLIC PANEL anion gap 16.0 mmol/ L 14-22 Not Available [facility] (Lab) [address] [place], [address], 09/21/2024 20:01:41 09/22/19 25 09/21/2024 COMPR EHENS POOL METAB OLIC PANEL glucose 100 mg/dL 70-99 high Not Available [facility] (Lab) [address] [place], [address], 09/21/2024 20:01:41 09/22/19 25 09/21/2024 COMPR EHENS POOL METAB OLIC PANEL BUN 21 mg/dL 8-19 high Not Available [facility] (Lab) [address] [place], [address], 09/21/2024 20:01:41 09/22/19 25 09/21/2024 COMPR EHENS POOL METAB OLIC PANEL creatinine 0.88 mg/dL 0.66-1 .25 Not Available [facility] (Lab) [address] [place], [address], 09/21/2024 20:01:41 09/22/19 25 09/21/2024 COMPR EHENS POOL METAB OLIC PANEL GFR >60 Refer ence Range : [place] ge GFR Healt hy Adult : >60 mL/mi n/1.7 3 m2 Chron ic Kidne y Disea se: 15-60 mL/mi n/1.7 3 m2 Kidne y Failu re: <15/m L/min /1.73 m2 [email or web address] The MDRD study equat ion has not been valid ated in child nate <18 years of age; pregn ant women ; the elder ly >85 years of age; or in some racia l or ethni c subgr oups, such as Hispa nics. Outsi de the valid ated madhu eters , estim ated GFR is less accur ate, requi ring clini george judgm ent on a case- by-ca se basis . Clini george inter preta tion for other races and ages must be made by the clini prema. The MDRD study equat ion has not been valid ated for the evalu ation of serum creat inine relat ed to nutri cuca l statu s or medic ation usage . For perso ns <18 years of age, a pedia tric GFR calcu lator is avail able on the [facility] websi te: https :[email or web address] zavaleta.kay saunders/vincenzo guzmanal s/kdo qi/gf r_cal culat or Not Available [facility] (Lab) [address] [place], [address], 09/21/2024 20:01:41 09/22/19 25 09/21/2024 COMPR EHENS POOL METAB OLIC PANEL alkaline phosphatase 60 U/L 38-126 Not Available [facility] (Lab) [address] [place], [address], 09/21/2024 20:01:41 09/22/19 25 09/21/2024 COMPR EHENS POOL METAB OLIC PANEL alanine aminotransfe rase 41 U/L 0-35 high Not Available [facility] (Lab) [address] [place], [address], 09/21/2024 20:01:41 09/22/19 25 09/21/2024 COMPR EHENS POOL METAB OLIC PANEL aspartate aminotransfe rase 32 U/L 15-37 Not Available [facility] (Lab) [address] [place], [address], 09/21/2024 20:01:41 09/22/19 25 09/21/2024 COMPR EHENS POOL METAB OLIC PANEL bilirubin, total 0.80 mg/dL 0.20-1 .30 Not Available [facility] (Lab) [address] [place], [address], 09/21/2024 20:01:41 09/22/19 25 09/21/2024 COMPR EHENS POOL METAB OLIC PANEL calcium 11.7 mg/dL 8.4-10 .2 high Not Available [facility] (Lab) [address] [place], [address], 09/21/2024 20:01:41 09/22/19 25 09/21/2024 COMPR EHENS POOL METAB OLIC PANEL total protein 7.9 g/dL 6.3-8. 2 Not Available [facility] (Lab) [address] [place], [address], 09/21/2024 20:01:41 09/22/19 25 09/21/2024 COMPR EHENS POOL METAB OLIC PANEL albumin 5.3 g/dL 3.0-4. 4 high Not Available [facility] (Lab) [address] [place], [address], 09/21/2024 20:01:41 09/22/19 25 09/21/2024 COMPR EHENS POOL METAB OLIC PANEL globulin 2.6 g/dL 2.6-4. 2 Not Available [facility] (Lab) [address] [place], [address], 09/21/2024 20:01:41 09/22/19 25 09/21/2024 COMPR EHENS POOL METAB OLIC PANEL A/G ratio 2.0 ratio 1.0-2. 0 Not Available [facility] (Lab) [address] [place], [address], 09/21/2024 20:01:41 09/22/19 25 09/21/2024 LIPID PANEL cholesterol 186 mg/dL 140-19 9 NIH LUPIS NSUS RECOM MENDA TION FOR GENEVIEVE STERO L: ADULT CHILD LOW RISK: <200 <170 BORDE RLINE : <200- 239 ----- HIGH RISK: >240 >200 Not Available [facility] (Lab) [address] [place], [address], 09/21/2024 20:01:46 09/22/19 25 09/21/2024 LIPID PANEL triglyceride s 155 mg/dL 0-150 high NIH LUPIS NSUS REPOR T RECOM MENDA TION FOR TRIGL YCERI BERNA: ADULT CHILD LOW RISK: <150 ----- BODER LINE: 150-1 99 ----- HIGH RISK: >200 ----- Not Available [facility] (Lab) [address] [place], [address], 09/21/2024 20:01:46 09/22/19 25 09/21/2024 LIPID PANEL HDL cholesterol 43 mg/dL 40- Not Available [facility] (Lab) [address] [place], [address], 09/21/2024 20:01:46 09/22/19 25 09/21/2024 LIPID PANEL LDL cholesterol, calculated 112 mg/dL 0-130 NIH LUPIS NSUS REPOR T [...] WILL NOT BE REPOR GRACIELA. Not Available [facility] (Lab) [address] [place], [address], 09/21/2024 20:01:46 09/22/19 25 09/21/2024 PARAT HY.HO RM(PT H)INT ACT-W /O CA intact parathyroid hormone 111.1 pg/mL 24.0-7 8.0 high Not Available [facility] (Lab) [address] [place], [address], 09/21/2024 20:18:23 09/22/19 25 09/21/2024 VITAM IN D 25-HY DROXY [id number] 48.2 NG/mL 30-100 Vitam in D Statu s: Defic ient: <20 ng/mL Insuf ficie nt: 20-29 ng/mL Suffi cient : 30-10 0 ng/mL Not Available [facility] (Lab) [address] [place], [address], 09/21/2024 20:18:38 09/22/19 25 09/21/2024 HEMOG LOBIN A1C HA1C 5.6 % 4.0-6. 0 Diabe octavio Scree kayden Crite ankit: <5.7% Consi stent with absen ce of diabe octavio 5.7-6 .4% Consi stent with incre ased risk for diabe octavio (pred iabet es) >OR=6 .5% Consi stent with diabe octavio REFER ENCE: Diabe octavio Care 2015, 39(Hernández ppl.1 ):s13 -s22 Not Available [facility] (Lab) [address] [place], [address], 09/21/2024 20:26:48 09/22/19 25 09/21/2024 TSH W/REF FARHEEN FT4 TSH with reflex free T4 1.650 uIU/m L 0.465- 4.680 Not Available [facility] (Lab) [address] [place], [address], 09/21/2024 20:36:14 09/22/19 25 09/21/2024 urina lysis , dipst ick Leukocytes (reference range: negative afshan/ l) Small Not Available [address], [address], 09/21/2024 14:23:19 09/22/19 25 09/21/2024 urina lysis , dipst ick Nitrite (reference rage: negative mg/dl) negati ve Not Available [address], [address], 09/21/2024 14:23:19 09/22/19 25 09/21/2024 urina lysis , dipst ick Urobilinogen (reference range: 0.2-1 mg/dl) 0.2 Not Available [address], [address], 09/21/2024 14:23:19 09/22/19 25 09/21/2024 urina lysis , dipst ick Protein (reference range: negative mg/dl) Negati ve Not Available [address], [address], 09/21/2024 14:23:19 09/22/19 25 09/21/2024 urina lysis , dipst ick pH (reference range: 5-7) 7.0 Not Available [address], [address], 09/21/2024 14:23:19 09/22/19 25 09/21/2024 urina lysis , dipst ick Blood (reference range: negative Cornelio/ l) Negati ve Not Available [address], [address], 09/21/2024 14:23:19 09/22/19 25 09/21/2024 urina lysis , dipst ick Specific [place] (reference range: 1.005-1.030) 1.010 Not Available [address], [address], 09/21/2024 14:23:19 09/22/19 25 09/21/2024 urina lysis , dipst ick Ketone (reference range: negative mg/dl) Negati ve Not Available [address], [address], 09/21/2024 14:23:19 09/22/19 25 09/21/2024 urina lysis , dipst ick Bilirubin (reference range: negative mg/dl) Negati ve Not Available [address], [address], 09/21/2024 14:23:19 09/22/19 25 09/21/2024 urina lysis , dipst ick Glucose (reference range: negative mg/dl) Negati ve Not Available [address], [address], 09/21/2024 14:23:19 09/22/19 25 09/21/2024 urina lysis , dipst ick Appearance Clear Not Available [address], [address], 09/21/2024 14:23:19 09/22/19 25 09/21/2024 urina lysis , dipst ick Color Pale Yellow Not Available [address], [address], 09/21/2024 14:23:19 06/15/19 25 06/15/2024 XR, chest , 2 view No observ ation record ed. [email or web address] [facility] [address], [place], [address], 07/21/2024 12:00:30 09/17/19 25 09/16/2024 NM, kidne y scan, w/ vascu lar flow + funct ion, singl e, w/o pharm a inter venti on No observ ation record ed. [email or web address] [facility] [address], [place], [address], 09/21/2024 14:09:22 Result Notes None recorded. Problems Name Problem SNOMED Code Status Onset Date Resolution Date Notes Provider Name and Address Organization Details Recorded Time Acute sinusitis 15694989 Active 2020 Not Available [facility] 3 07:31:19 Anthony hematuria 456945096 Completed Not Available [facility] 3 07:31:20 Sciatica 06058924 Active 2021 Not Available [facility] 3 07:31:20 Mixed anxiety and depressiv e disorder 278506355 Active 2021 Not Available [facility] 3 07:31:20 Gastroeso phageal reflux disease 857838175 Active 2019 Not Available [facility] 3 07:31:20 Osteoarth ritis of knee 981193879 Active 2016 Not Available [facility] 3 07:31:20 Lumbar spondylos is 145265736 Active 2021 Not Available [facility] 3 07:31:20 Headache 80435579 Completed Daly Pinto NP [address] [facility], [facility] [address], [place], [address] , [facility] 3 12:00:58 History of thyroid disorder 246333357 Active 2020 Not Available [facility] 3 07:31:20 Low back pain 274019651 Active 2021 Not Available [facility] 3 07:31:20 Retinal disorder 27252145 Active Not Available [facility] 3 07:31:20 Hypertrig lyceridem ia 051540000 Active 2020 Not Available [facility] 3 07:31:21 Depressiv e disorder 85119436 Active Not Available [facility] 3 07:31:21 Seasonal allergic rhinitis 755310511 Active 2019 Not Available [facility] 3 07:31:21 Sinusitis 67970329 Active 2017 Not Available [facility] 3 07:31:21 Hypertens pool disorder 38122230 Active 2019 Not Available [facility] 3 07:31:21 Hematoma 471219962 Completed Not Available [facility] 3 07:31:21 Memory impairmen t 803928677 Active 2020 Not Available [facility] 3 07:31:21 Furuncle 657041021 Completed Michael Faye MD [address] [place] [address], [place] [address], [place], [address] , [facility] [facility] 4 10:18:43 Environme ntal allergy 660414944 Active 2016 Not Available [facility] 3 07:31:21 Herniatio n of lumbar intervert ebral disc with sciatica 82404928896 4105 Active 2021 Not Available [facility] 3 07:31:22 Foot pain 72282090 Completed Not Available [facility] 3 07:31:22 Bilateral tinnitus 63022549364 02 Active 2019 Not Available [facility] 3 07:31:22 Anxiety 23804187 Active Not Available [facility] 3 07:31:22 Upper respirato ry infection 32696169 Completed Not Available [facility] 3 07:31:22 Hyperlipi demia 60501733 Active 2016 Not Available [facility] 3 07:31:22 Migraine without aura 94675253 Active 2016 Not Available [facility] 3 07:31:22 Osteoporo sis 86570466 Active 2021 Not Available [facility] 3 07:31:23 Urinary tract infectiou s disease 74830852 Completed Michael Faye MD [address], [place], [address] , [facility] 4 16:13:03 Acid reflux 414628445 Active 2018 Not Available [facility] 3 07:31:23 Liver enzymes level above reference range 966577047 Active 2020 Not Available [facility] 3 07:31:23 Varicose veins of lower extremity 59245920 Active 2016 Not Available [facility] 3 07:31:23 Sleep apnea 39359563 Active Not Available [facility] 3 07:31:24 Urgent desire to urinate 06151879 Completed Not Available [facility] 3 07:31:24 Postmenop ausal state 83185669 Active 2021 Not Available [facility] 3 07:31:24 Hyperglyc emia 69051442 Active 2016 Not Available [facility] 3 07:31:24 Gout 15435984 Active 2021 Not Available [facility] 3 07:31:24 Skin lesion 85022163 Completed Not Available [facility] 3 07:31:25 Kidney stone 64535275 Completed Not Available [facility] 3 07:31:25 Obese 530573126 Active 2022 Daly Pinto NP [address], [address], [place], [address] , [facility] 3 11:56:43 Headache 49678812 Active 2022 Daly Pinto NP [address], [place], [address] , [facility] 3 12:00:58 Lumbar radiculop athy 816377803 Active 2022 Michael Faye MD [address], [address], [place], [address] , [place] [facility] 3 17:01:57 Obesity 662440450 Active 2022 Michael Faye MD [address], [address], [place], [address] , [place] [facility] 3 17:02:46 Lipoma of lower leg 210822794 Active 2022 Michael Faye MD [address], [address], [place], [address] , [place] [facility] 3 17:43:42 Idiopathi c hypercalc emia 706750922 Active 2022 Michael Faye MD [address], [place], [address] , [place] [facility] 3 14:31:47 Hyperpara thyroidis m 70241978 Active 2022 Michael Faye MD [address], [place], [address] , [place] [facility] 5 10:26:42 Blood in urine 82080972 Active 2022 Daly Pinto NP [address], [place], [address] , [place] [facility] 3 10:44:02 Abnormal uterine bleeding 08952612771 100 Active 2022 Daly Pinto NP [address], [place], [address] , [place] [facility] 3 10:44:49 Acute urinary tract infection 917787738 Active 2022 Daly Pinto NP [address], [place], [address] , [place] [facility] 3 08:51:54 Dysuria 06282643 Active 2022 Michael Faye MD [address], [place], [address] , [place] [facility] 5 14:23:11 Urinary tract infectiou s disease 53226133 Active 2023 Michael Faye MD [address], [address], [place], [address] , [place] [facility] 4 16:13:03 Bilateral earache 590347482 Active 2023 Michael Faye MD [address], [address] [employer], [place], [address] , [facility] 4 16:33:22 Candidal vulvovagi nitis 00031187 Active 2023 Michael Faye MD [address], [address] [employer], [place], [address] , [place] [facility] 4 16:37:42 Gouty arthropat hy 197386459 Active 2023 Michael Faye MD [address] [employer], [place], [address] , [facility] 4 09:56:46 Polyarthr opathy 04804421 Active 2023 Michael Faye MD [address] [employer], [place], [address] , [facility] 4 09:58:59 Obstructi ve sleep apnea syndrome 16671663 Active 2023 Michael Faye MD [address] [employer], [place], [address] , [facility] 4 10:07:57 Pain of right knee joint 46995241900 4100 Active 2023 LILLY Beltran [address], [address] [employer], [place], [address] , [facility] 4 14:54:22 Hypercalc emia 11137413 Active 2023 LILLY Beltran [address], [place] [address], [place], [address] , [place] [employer] [facility] [employer] [facility] 4 14:58:37 Cough 08118222 Active 2024 Michael Faye MD [address], [place], [address] , [place] [employer] [facility] 5 14:35:26 Bronchiti s 26523441 Active 2024 Michael Faye MD [address], [place], [address] , [employer] [facility] [employer] [facility] 5 14:57:50 Muscle strain 53813737 Active 2024 Michael Faye MD [address], [place], [address] , [employer] [facility] [employer] [facility] 5 15:14:02 Problem Notes None recorded. Procedures Surgical History Date Name Laterality Status Provider Name and Address Organization Details Recorded Time 10/27/19 24 Date of Last Pap Smear completed Michael Faye MD [address], [address], [place], [address], [employer] [facility] [employer] [facility] 09/21/2024 14:27:51 09/29/19 24 Medicare Wellness CPT Code, subsequent completed Reji Ashton [employer] [facility] [employer] [facility] 09/29/2023 14:15:26 08/29/19 24 Most Recent Mammogram completed Michael Faye MD [address] [place] [address], [place], [address], [employer] [facility] [employer] [facility] 09/21/2024 14:27:51 06/18/19 24 Transitional_Care_ Management completed Reji Ashton [employer] [facility] [employer] [facility] 06/18/2023 16:22:09 04/03/20 22 Most Recent Bone Density completed Not Available [facility] 07/23/2022 07:26:53 05/25/19 18 Knee Replacement completed Not Available [facility] 07/23/2022 07:26:55 05/25/19 02 repair of ovary completed Not Available [facility] 07/23/2022 07:26:55 05/25/18 92 Cholecystectomy completed Not Available [facility] 07/23/2022 07:26:55 Imaging Results Imaging Date Name Status LastModified by Organization Details LastModified Time 06/15/2024 XR, chest, 2 view completed [address], [place], [address], 07/21/2024 12:00:30 09/16/2024 NM, kidney scan, w/ vascular flow + function, single, w/o pharma intervention completed [address], [place], [address], 09/21/2024 14:09:22 Procedure Notes None recorded. Medical Equipment None Reported. Allergies Allergen ID Allergen Name Allergen Category Reaction Reaction Severity Criticality Documentation Date Start Date Code Code System Note Provider Name and Address Organization Details Recorded Time 63808 Substance with sulfonami de structure and antibacte rial mechanism of action (substanc e) medicatio n nausea Not available Not available 07/23/2022 64968 8003 SNOMED Not Available [facility] 3 07:36:13 48397 Zithromax medicatio n other Not available Not available 03/31/202419637 4 RxNorm cause s pt to be super jitte ry Michael Faye MD [address] [facility], [place] [address], [place], [address] , [employer] 5 14:58:29 48920 Macrobid medicatio n anaphylax is severe high 06/16/20242024 96477 1 RxNorm state s her throa t close d up with in the hour of leyda dove it, had to go to [facility], [employer] 5 09:32:31 Medications Name Sig Start Date [...] t Available amoxicill in 500 mg capsule TAKE 1 CAPSULE BY MOUTH THREE TIMES DAILY FOR 7 DAYS active Not Available Not Available No [...] completed Not Available Not Available Not Available cephalexi n 250 mg capsule TAKE 1 CAPSULE BY MOUTH ONCE DAILY active Not Available Not Available No t Available hydrocodo ne 5 mg-acetam inophen 325 [...] t Available alendrona te 70 mg tablet 1 tab po weekly 2024 active Not Available Not Available Not Avai lable doxycycli ne hyclate 50 mg capsule 1 [...] tablet TAKE 1 TABLET BY MOUTH DAILY 2024 active Not Available Not Available Not [...] MOUTH TWICE DAILY NEEDED FOR ARTHRITI S 2024 active Not Available Not Available Not Avai lable triamtere ne 37.5 mg-hydroc hlorothia zide 25 [...] Available Not Available meloxicam 7.5 mg tablet Take 1 tablet every 12 hours by oral route as needed for 30 days. 2024 active Not Available Not Available Not Avai lable amoxicill in 875 mg tablet Take 1 [...] TAKE 1 TABLET BY MOUTH TWICE DAILY active Not Available Not Available No t Available amoxicill in 500 mg-potass ium clavulana [...] Avai lable rosuvasta tin 5 mg tablet TAKE 1 TABLET BY MOUTH ONCE DAILY AT BEDTIME 10/05 completed Not Available Not Available Not Available rosuvasta tin 10 mg tablet TAKE 1 TABLET BY MOUTH ONCE DAILY AT BEDTIME active Not Available Not Available No t Available Midran tablet 2 AT ONSET OF HEADACHE [...] and Address Organization Details Last Updated DateTime 160.02 cm 41.5 kg/m2 104193. 61 g 97.3 [degF] 74 /min 20 /min 97 % 97 % 160 mm[Hg] 90 mm[Hg] Daly Monte RN [facility] [employer] 5 10:40:55 Date Recorded Body height Body mass index (BMI) Body weight Body temperature Heart rate Respiratory rate Provider Name and Address Organization Details Last Updated DateTime 5 160.02 cm 41.7 kg/m2 871040. 91 g 97.5 [degF] 74 /min 20 /min Daly Monte RN [facility] [employer] [facility] 5 11:46:53 Date Recorded Oxygen saturation Oxygen saturation in Arterial blood by Pulse oximetry Systolic blood pressure Diastolic blood pressure Provider Name and Address Organization Details Last Updated DateTime 07/21/2024 96 % 96 % 160 mm[Hg] 84 mm[Hg] Michael Faye MD [address] [facility], [facility] [address], [place], [address], [facility] [employer] [facility] 5 12:20:50 Date Recorded Body height Body mass index (BMI) Body weight Body temperature Oxygen saturation Oxygen saturation in Arterial blood by Pulse oximetry Heart rate Systolic blood pressure Diastolic blood pressure Provider Name and Address Organization Details Last Updated DateTime 5 160.02 cm 41.4 kg/m2 064466. 82 g 98.2 [degF] 96 % 96 % 72 /min 120 mm[Hg] 70 mm[Hg] Nely Xiao RN [facility] [employer] [facility] 5 14:53:14 Date Recorded Body height Body mass index (BMI) Body weight Body temperature Oxygen saturation Oxygen saturation in Arterial blood by Pulse oximetry Heart rate Systolic blood pressure Diastolic blood pressure Provider Name and Address Organization Details Last Updated DateTime 5 160.02 cm 40.6 kg/m2 578515. 05 g 98.1 [degF] 97 % 97 % 81 /min 142 mm[Hg] 70 mm[Hg] Nely Xiao RN [facility] [employer] [facility] 5 14:07:59 Date Recorded Body height Body mass index (BMI) Body weight Body temperature Oxygen saturation Oxygen saturation in Arterial blood by Pulse oximetry Heart rate Systolic blood pressure Diastolic blood pressure Provider Name and Address Organization Details Last Updated DateTime 5 160.02 cm 41 kg/m2 789293. 89 g 97.7 [degF] 98 % 98 % 76 /min 140 mm[Hg] 64 mm[Hg] Nely Xiao RN [facility] [employer] [facility] 5 10:19:26 Social History Question Answer Notes LastModified by Organizat ion Details LastModified Time Tobacco Smoking Status Never Smoker Elida scanlon [facility] [employer] [facility] 06/18/2023 16:10:12 Do You Have An Advance Directive? Yes [id number] Information not available 07/23/2022 Are You Blind Or Do You Have Difficulty Seeing? No Information not available 06/18/2023 Is Blood Transfusion Acceptable In An Emergency? Yes Information not available 06/18/2023 What Is Your Level Of Caffeine Consumption? Moderate [id number] Information not available 07/23/2022 How Much Tobacco Do You Chew? None [id number] Information not available 07/23/2022 What Is Your [...] No Information not available 06/18/2023 Are You Deaf Or Do You Have Serious Difficulty Hearing? Yes Right Ear Has Issues Information not available 06/18/2023 What Type Of Diet Are You Following? GLUTENFREE [id number] Information not available 12/30/2023 Which Illicit Or Recreational Drugs Have You Used? None Information not available 06/18/2023 What Is The Highest Grade Or Level Of School You Have Completed Or The Highest Degree You Have Received? [id number] Information not available 06/18/2023 How Many Days Of Moderate To Strenuous [...] not available 06/18/2023 Where Do You Live? [facility] Information not available 06/18/2023 Advance Directive- [...] Do You Have A Medical Power Of Compressor Battery Pellets? No Information not available 06/18/2023 What Was [...] Aerobics Information not available 06/18/2023 Do You Use Sunscreen Routinely? Yes Information not available 06/18/2023 Have You Recently Traveled Abroad? No Information not available 06/18/2023 Do You Have Difficulty Walking Or Climbing Stairs? No Information not available 06/18/2023 Do You Have Any Dietary Restrictions? Yes Information not available 06/18/2023 Sex: Unknown Functional Status Question Answer Note LastModified by Organizat ion Details LastModified Time What is your level of alcohol consumption? None [id number] Information not available 07/23/2022 Are you currently employed? Yes Information not available 06/18/2023 Do you have transportation difficulties? No Information not available 06/18/2023 Are you able to walk? YESWOREST Information not available 06/18/2023 Do you have difficulty doing errands alone? No Information not available 06/18/2023 Are you able to care for yourself? 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 No Information not available 06/18/2023 Do you or have you ever used e-cigarettes or vape? Never used electronic cigarettes Information not available 06/18/2023 What is your exercise level? Moderate [id number] Information not available 12/30/2023 Mental Status Question Answer Note LastModified by Organizat ion Details LastModified Time Do you feel stressed (tense, restless, nervous, or anxious, or unable to sleep at night)? [id number] Information not available 11/09/2023 Do you have difficulty concentrating, remembering or making decisions? No Information no t available 06/18/2023 Family History Relationship Description Onset Age of this Age Resolved Age Notes LastModified by Organization Details LastModified Time Father No current problems or disability [id number] Not available 07/23/2022 07:26:58 Mother No current problems or disability [id number] Not available 07/23/2022 07:26:58 Medical History Condition Response HEADACHES/MIGRAINES Y OBESITY Y ANXIETY DISORDER Y GERD/NAUSEA Y BACK INJECTIONS Y ALLERGIES/HAYFEVER Y URINARY/BLADDER/KIDNEY PROBLEMS Y BACK / NECK PROBLEMS Y HYPERTENSION Y HIGH CHOLESTEROL / HYPERLIPIDEMIA Y Gynecological History Statement/Question Response Abnormal Pap N If Post Menopausal, Age at Menopause 49 Date of Last Mammogram 06/23/2022 Date of Last Colonoscopy Most Recent Bone Density 04/03/2022 Sexually Active? N STIs/STDs N HPV Vaccine N Date of Last Pap Smear 10/27/2023 Most Recent Mammogram 08/29/2023 N Obstetrics History GPAL:G 0 P 0 0 0 0 Immunizations Vaccine Type Date Status Note Provider Nam e and Address Organization Details Recorded Time Influenza, split virus, quadrivalent, preservative 8 completed Not Available [facility] 07/23/2022 07:36:04 Influenza, split virus, trivalent, preservative 5 completed Not Available [facility] 07/23/2022 07:36:04 zoster live 5 completed Not Available [facility] 07/23/2022 07:36:04 Influenza, split virus, trivalent, PF 4 completed Not Available [facility] 07/23/2022 07:36:04 Pneumococcal conjugate PCV 13 0 completed Not Available [facility] 07/23/2022 07:36:05 Influenza, high-dose, quadrivalent, PF 0 completed Not Available [facility] 07/23/2022 07:36:05 Tdap 8 completed Not Available [facility] 07/23/2022 07:36:05 Influenza, split virus, quadrivalent, PF 6 completed Not Available [facility] 07/23/2022 07:36:05 Past Encounters Encounter ID Performer Location Encounter Start Date Encounter Closed Date Diagnosis/Indication Diagnosis SNOMED-CT Code Diagnosis ICD10 Code Diagnosis Note [id number] Daly Pinto NP [facility] [address] [place] [address] [id number] 1 07/24/2020 00:00:00 07/24/2020 09:44:41 [id number] Michael Faye MD [facility] [address] [place] [address] [id number] 1 10/31/2020 00:00:00 10/31/2020 09:16:25 [id number] Michael Faye MD [facility] [address] [place] [address] [id number] 1 11/20/2020 00:00:00 11/20/2020 12:21:01 [id number] Michael Faye MD [facility] [address] [place] [address] [id number] 1 02/13/2021 00:00:00 02/13/2021 14:33:22 [id number] Michael Faye MD [facility] [address] [place] [address] [id number] 1 02/26/2021 00:00:00 02/26/2021 14:32:03 [id number] Michael Faye MD [facility] [address] [place] [address] [id number] 1 07/24/2021 00:00:00 07/24/2021 14:56:44 [id number] Michael Faye MD [facility] [address] [place] [address] [id number] 1 10/09/2021 00:00:00 10/09/2021 14:38:30 [id number] Daly Pinto NP [address] [address]44-359 1 02/26/2022 00:00:00 02/26/2022 10:42:26 [id number] Michael Faye MD [address] 95435-619 1 03/18/2022 00:00:00 03/19/2022 15:55:39 [id number] Michael Faye MD [address] 65815-604 1 04/29/2022 00:00:00 04/29/2022 18:09:05 [id number] Michael Faye MD [address] 75150-563 1 05/06/2022 00:00:00 05/06/2022 15:25:01 [id number] Daly Pinto NP [address] [id number] 1 08/06/2022 11:17:09 08/06/2022 12:50:33 Hyperlipidemia 40283254 E78.5 Low fat diet. Statins cause pain. 02/27/22 last lab result. Essential hypertension 18147953 I10 amlodipine 5 mg po daily.ASA 81 mg po dailyLosar puckett 100 mg po daily.tria mterene 37.5 mg-hctz25 mg po daily. (this can increase gout flare, so stopped and started on losartan only) Osteoporosis 74402062 M8 1.0 alendronat e 70 mg po weekly pt stopped. Wants to follow Dr. Sims holistic provider and be on vitamins.M eloxicam 15 mg po daily.Tram adol 50 mg po tid prn- pt trying to wean off. Acid reflux 667479454 K2 1.9 famotidine 20 mg po daily. Sleep apnea 05289045 G47 .30 Gout 26631786 M10.9 allopurino l 100 mg po daily. Seasonal a llergic rhinitis 313061530 J30.2 cetirizine 10 mg po daily.Flon ase prn Mixed anxi ety and depressive disorder 171113994 F41.8 Pt weaned herself off the lexapro. Hydroxyzin e prn use. Sciatica 30234734 M54.32 cyclobenza shalini 10 mg po tid prn.Gabape ntin 300 mg po nightly. Obese 727708302 E66.9 Diet and exercise. Wegovy and phentermin e discussed. Phentermin e 15 mg po daily. Headache 80463498 R51.9 [id number] Michael Faye MD [address] [address]157-342 1 08/07/2022 16:38:36 08/07/2022 17:44:28 Cramp in lower limb 693669555 R25.2 B/L Lumbar radiculopathy 128 797710 M54.16 Gout 50398173 M10.9 Obesity 023734000 E66.9 Lipoma of lower leg 1890 23921 D17.24 Lt [id number] Daly Pinto NP [address] [id number] 1 09/09/2022 09:34:15 09/09/2022 10:58:16 Blood in urine 77819918 R31.9 Sending urine for culture. Blood with wiping- no periods for 15 years. Abnormal u terine bleeding 6131294403 9100 N93.9 referring to pedorthist- pt to find provider that accepts insurance. Obese 706244364 E66.9 Diet and exercise. Phentermin e 15 mg po daily. Down 2 lbs. Would like to continue. [id number] Daly Pinto NP [address] 85439-670 1 10/09/2022 09:13:04 10/09/2022 10:05:37 Obese 915355930 E66.9 Diet and exercise. Phentermin e 15 mg po daily. Down 2 lbs. Would like to continue.I LPMP last fill 09/09/22.Ph entermine 37.5 mg po daily. Essential hypertension 66498914 I10 amlodipine 5 mg po daily.ASA 81 mg po dailyLosar puckett 100 mg po daily.tria mterene 37.5 mg-hctz25 mg po daily. (this can increase gout flare, so stopped and started on losartan only) Gastroesop hageal reflux disease 007076128 K21.9 [id number] Daly Pinto NP [address] [id number] 1 10/24/2022 10:41:24 10/24/2022 11:44:26 Dysuria 69941875 R30.0 R30.9 Patient was started on antibiotic and advised to increase water intake.Cul ture sent.Urina lysis in office +nitrites [id number] Daly Pinto NP [address] [id number] 1 01/21/2023 13:58:46 01/21/2023 18:03:00 Gout 65831237 M10.9 allopurino l 200 mg po daily. Seeing Dr. Becerra. Sleep apnea 66175536 G47 .30 CPAP Acid reflux 294240844 K2 1.9 famotidine 20 mg po daily. Hyperparathyroidism 6699 9008 E21.3 referred to endo, but patient cancelled. Osteoporosis 77328991 M8 1.0 alendronat e 70 mg po weekly pt stopped. Wants to follow Dr. Sims holistic provider and be on vitamins.M eloxicam 15 mg po daily.Tram adol 50 mg po tid prn- pt trying to wean off. Not able to yet- trying to lose weight. Essential hypertension 99660638 I10 amlodipine 5 mg po daily.ASA 81 mg po dailyLosar puckett 100 mg po daily.tria mterene 37.5 mg-hctz25 mg po daily. (this can increase gout flare, so pt monitoring ) Migraine without aura 56 767352 G43.009 Hyperlipidemia 97889493 E78.5 Low fat diet. Statins cause pain. 02/27/22 last lab result. Anxiety 94295410 F41.9 Obese 282232356 E66.9 Diet and exercise. Lumbar spondylosis 82928 0009 M47.896 Osteoarthr itis of knee 864029089 M17.9 [id number] Michael Faye MD [address] [id number] 1 06/18/2023 16:09:07 06/18/2023 17:00:32 Seen in emergency clinic [id number] Z76.89 Recent ED records reviewed. 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 Obesity 299326732 E66.9 Osteoporosis 82117684 M8 1.0 Screening mammography 24 830363 Z12.31 Screening for malignant neoplasm of colon 861439281 Z12.11 Urinary tr act infectious disease 15554459 N39.0 Obstructiv e sleep apnea syndrome 70842742 G47.33 [id number] Michael Faye MD [address] [id number] 1 09/29/2023 14:13:02 09/29/2023 15:00:22 Hypertensive disorder 88694097 I10 Gouty arthropathy 255586 008 M10.09 Depressive disorder 3548 9007 F32.A Polyarthropathy 05437289 M13.0 Obesity 879382210 E66.9 Osteoporosis 80523487 M8 1.0 Obstructiv e sleep apnea syndrome 74125338 G47.33 Adult [facility] th examination 637565337 Z00.00 Screening for disorder 286338118 Z13.9 Hyperlipidemia 90654719 E78.5 Liver enzy mes level above reference range 213973427 R74.01 Idiopathic hypercalcemia 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.52 Essential hypertension 35316927 I10 [id number] Michael Faye MD [address] 80150-039 1 11/09/2023 14:20:26 11/09/2023 15:06:36 Pain of right knee joint 3475369167 64276 M25.561 Hypercalcemia 55335252 E 83.52 [id number] Michael Faye MD [address] 56237-397 1 12/22/2023 09:14:13 12/22/2023 09:30:39 [id number] Michael Faye MD [address] 57042-873 1 12/30/2023 09:42:46 12/30/2023 10:33:19 Hypertensive disorder 72118865 I10 Gouty arthropathy 079569 008 M10.09 Depressive disorder 3548 9007 F32.A Polyarthropathy 84881369 M13.0 Obesity 785091797 E66.9 Osteoporosis 12144003 M8 1.0 Obstructiv e sleep apnea syndrome 75115566 G47.33 Hyperlipidemia 50992614 E78.5 Liver enzy mes level above reference range 722794931 R74.01 Idiopathic hypercalcemia 258578564 E83.52 Osteoarthr itis of knee 659335487 M17.9 [id number] Mihcael Faye MD [address] 34236-405 1 03/31/2024 09:38:14 03/31/2024 10:14:55 Idiopathic hypercalcemia 250078952 E83.52 Gouty arthropathy 878741 008 M10.09 Hypertensive disorder 38 324524 I10 Depressive disorder 3548 9007 F32.A Polyarthropathy 70376898 M13.0 Obesity 179955607 E66.9 Osteoporosis 30542055 M8 1.0 Obstructiv e sleep apnea syndrome 52510243 G47.33 Hyperlipidemia 64950562 E78.5 Liver enzy mes level above reference range 525368902 R74.01 Osteoarthr itis of knee 321156578 M17.9 [id number] Michael Faye MD [address] 50837-409 1 06/15/2024 10:16:28 06/15/2024 10:56:03 Acute urinary tract infection 717077519 N39.0 hx of sepsis related to UTI [id number] Michael Faye MD [address] 41554-947 1 07/21/2024 11:36:24 07/21/2024 12:34:55 Gouty arthropathy 492854952 M10.09 Idiopathic hypercalcemia 997677878 E83.52 Hypertensive disorder 38 523500 I10 Depressive disorder 3548 9007 F32.A Polyarthropathy 59815233 M13.0 Obesity 930432165 E66.9 Osteoporosis 45217602 M8 1.0 Obstructiv e sleep apnea syndrome 15882858 G47.33 Hyperlipidemia 92946278 E78.5 Liver enzy mes level above reference range 990512883 R74.01 Osteoarthr itis of knee 763860959 M17.9 Blood in urine 22504798 R31.9 Dysuria 40954759 R30.0 [id number] Michael Faye MD [place] [id number] 1 08/17/2024 14:29:59 08/17/2024 15:04:55 Cough 12507718 R05.9 Bronchitis 70144061 J40 Muscle strain 47997335 T 14.8XXA [id number] Michael Faye MD [address] 21842-941 1 09/21/2024 13:53:04 09/21/2024 14:42:12 Gouty arthropathy 053387482 M10.09 Idiopathic hypercalcemia 936671296 E83.52 Hypertensive disorder 38 843672 I10 Depressive disorder 3548 9007 F32.A Polyarthropathy 00297006 M13.0 Obesity 154631189 E66.9 Osteoporosis 89197032 M8 1.0 Obstructiv e sleep apnea syndrome 55949619 G47.33 Hyperlipidemia 16385657 E78.5 Liver enzy mes level above reference range 247603787 R74.01 Osteoarthr itis of knee 117873214 M17.9 Dysuria 45790014 R30.0 [id number] Michael Faye MD [address] 50514-932 1 10/05/2024 10:11:13 10/05/2024 10:36:25 Hypertensive disorder 40639545 I10 Gouty arthropathy 920052 008 M10.09 Idiopathic hypercalcemia 103850994 E83.52 Depressive disorder 3548 9007 F32.A Polyarthropathy 05508583 M13.0 Obesity 037457579 E66.9 Osteoporosis 88317541 M8 1.0 Obstructiv e sleep apnea syndrome 41621435 G47.33 Hyperlipidemia 62090688 E78.5 Liver enzy mes level above reference range 583536243 R74.01 resolved Osteoarthr itis of knee 156185432 M17.9 Hyperparathyroidism 6699 9008 E21.3 Health Concerns Section Related Observation LastModified by Organization Detai ls LastModified Time None Recorded Concern Status LastModified by Organization Details LastModified Time None Recorded Advance Directives Directive Y: Payers Encounter Date Sequence Insurance Name Policy Number Policy Dunham Covered Member ID Dunham Member ID Guarantor Name 06/15/2024 1 [facility] (MEDICARE REPLACEMENT/A DVANTAGE - HMO) [id number] Rody Monson [id number] Rody Monson 07/21/2024 1 [facility] (MEDICARE REPLACEMENT/A DVANTAGE - HMO) [id number] Rody Monson [id number] Rody Monson 08/17/2024 1 [facility] (MEDICARE REPLACEMENT/A DVANTAGE - HMO) [id number] Rody Monson [id number] Rody Monson 09/21/2024 1 [facility] (MEDICARE REPLACEMENT/A DVANTAGE - HMO) [id number] Rody Monson [id number] Rody Monson 10/05/2024 1 [facility] (MEDICARE REPLACEMENT/A DVANTAGE - HMO) [id number] Rody Monson [id number] Rody Monson Notes Date Note Type Note Provider Name and Address Organization Details Recorded Time 06/15/2024 text/html Rody Monson is a 68 year old female patient here today for urinary concerns She states she gets UTIs frequently She noticed blood in her urine last night, pelvic pain, pressure, urgency LILLY Beltran [address], [place], [address], [employer] 06/15/2024 10:51:32 07/21/2024 text/html FUV + ACV: [...] supplements by them. Michael Faye MD [address], [place], [address], [employer] 07/21/2024 14:54:26 08/17/2024 text/html ACV: C/o cough, congestion, drainage for last 3 weeks, on/off. Pt has been doing otc meds and its still not getting better. Due to cough, she is c/o middle back area pain too. Denies any recent fall/trauma. Michael Faye MD [address], [place], [address], [employer] 08/17/2024 15:14:28 09/21/2024 text/html Pt is here for h er annual exam. Doing overall better. Denies any problem with meds. Denies any new concern. Still has lot of urinary issues and she called yesterday to be started on Amoxicillin for it. Pt is f/u with Uro at [facility] for her recurrent UTIs and kidney stones and will be seeing them on this Thursday. Pt got more testing done with them too. Pt has not seen Endo yet. Pt says her recently got diagnosed with lung cancer. Pt has chronic multiple joints pain and morning stiffness and is on Tramadol and Meloxicam for it. Pt has not seen any specialist for this in the past. Pt is f/u with functional medicine doctor in [place] and in on supplements by them. Michael Faey MD [address], [address], [place], [address], [employer] [facility] [employer] 09/21/2024 14:29:00 10/05/2024 text/html Pt is here for f /u on her annual labs. Doing overall better. Denies any problem with meds. Denies any new concern. Pt is f/u with Uro at [facility] for her recurrent UTIs and kidney stones and will be seeing them in few weeks for lithotripsy. Pt got more testing done with them too. Pt has not seen Endo yet. Pt says her recently got diagnosed with lung cancer. Pt has chronic multiple joints pain and morning stiffness and is on Tramadol and Meloxicam for it. Pt has not seen any specialist for this in the past. Pt is f/u with functional medicine doctor in [place] and in on supplements by them. Michael Faye MD [address], [place], [address], [employer] [facility] 10/05/2024 10:32:33 OBGyn Episode No OBEpisode recorded.
--- OUTSIDE RECORDS SUMMARY | 2024-10-14 01:11 | XMS_ITS | Clinical Summary ---
Author Organization [facility] Address [address] [place] [address] Care Team Providers Care Religious Education Director Name Role Phone Fabiola Melo MD Unavailable [phone] Brittany Elias MD Primary Care Provider [phone] Source Comments [facility],non-owned Affiliates and Associated Physician Practices is amultiple site organization consisting of ambulatory clinics and hospital sitesin [place], [place], [place] and [place]. This disclosure is being madepursuant to the Care Everywhere program and may not contain all information available regarding this patient. 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 Gender Identity Not on file Sexual Orientation [...] this topic Medical Devices Implanted Type Area Bioinformatics Computer Scientist Device Identifier Shelf Expiration Date Model / Serial / Lot Cmnt Bone Cblt 40gm Hvisc Strl Implanted:Qty: 1 on 02/11/2018 by Toño Johnston MD at [facility] Left: Knee [employer] 02/21/2019 600-15-000 / / [id number] Cmpnt Ptlr 28mm 1 Pg Wire Ascnt Arcm Kn Implanted:Qty: 1 on 02/11/2018 by Toño Johnston MD at [facility] Left: Knee [employer] 01/29/2023 [id number] / / [id number] Tray Tib 71mm Kn Cocr I Beam Implanted:Qty: 1 on 02/11/2018 by Toño Johnston MD at [facility] Left: Knee [employer] 12/02/2027 [id number] / / [id number] Cmpnt Fem Kn Lt Cr Cmnt Prm Vngrd Intlk Implanted:Qty: 1 on 02/11/2018 by Toño Johnston MD at [facility] Left: Knee [employer] 10/21/2027 [id number] / / [id number] Brng [id number] Vngrd Arcm Kn Ant Stab Implanted:Qty: 1 on 02/11/2018 by Toño Johnston MD at [facility] Left: Knee [employer] 12/22/2022 [id number] / / [id number] Procedures Procedure Name Priority Date/Time Associated Diagnosis [...] ORDERABLES Fi nal Result Performing Organization Address City/State/[facility] Co de Phone Number [facility] [address] [place] [address] from Last 3 Months or Most Recently Relevant to Health Maintenance Insurance GREG ANTHEM Advance Directives * Full Code (Latest Code Status on File) Date Activated Date Inactivated Comments 02/11/2018 11:11 AM 02/14/2018 1:10 PM Care Teams Religious Education Director Relationship Specialty Start Date End Date Brittany Elias MD [address] [place] [phone] PCP - General 05/26/19 [place] [address] [address] Orthopedic Surgery 06/06/14
--- OUTSIDE RECORDS SUMMARY | 2024-10-14 01:11 | XMS_ITS | Data Portability ---
Author Organization [place] - [facility] Address [address] [place] [address] Assessment Encounter Date Assessment Date Assessment LastModified by Organization Details LastModified Time 08/06/2024 08/06/2024 Ddx: UTI, STI, Pyelonephritis A: Patient s symptoms and history consistent with urinary tract infection. P: Provided counseling/treatme nt recommendations as noted below: Medication prescribed: See Rx section If any medications were discussed (either prescription or [id number]), please review any potential side effects before [...] Cipro 250 mg tablet 025 08/07/[address] [facility] #[id number], [address] [place], [address], 18:41:41 Patient TargetsNo targets recorded. Patient Instructions Encounter Date Encounter Id Patient Instructions Last Modified By Organization Details Last Modified Time 08/06/2024 [id number] Urinary Tract Infection (UTI) in Women: Care [...] Name and Address Organization Details Recorded Time 331115 Macrobid medicatio n Not available Not available Not available 08/06/2024 82230 1 RxNorm Not Available Included [facility] 17:37:03 [id number] Substance with sulfonami de structure and antibacte rial mechanism of action (substanc e) medicatio n Not available Not available Not available 08/06/2024 35224 8003 SNOMED Not Available Included [facility] 17:37:03 Medications Name Sig Start Date Stop [...] SNOMED-CT Code Diagnosis ICD10 Code Diagnosis Note [id number] LILLY Agarwal [facility] [place] [address] 08/06/2024 17:41:34 08/06/2024 17:47:23 Patient not examined 318168603 Z53.9 [id number] LILLY Agarwal [facility] [place] [address] 08/06/2024 17:50:32 08/07/2024 15:27:58 Acute urinary tract infection 556265641 N39.0 Health Concerns Section Related Observation LastModified by Organization Detai ls LastModified Time None Recorded Concern Status LastModified by Organization Details LastModified Time None Recorded Advance Directives Directive None Recorded Payers Insurance Date Sequence Insurance Name Policy Number Policy Dunham Covered Member ID Dunham Member ID Guarantor Name 08/06/2024 [employer] [id number] Rody Monson [id number] Rody Monson 08/06/2024 3 *SELF PAY* [id number] Rody Monson [id number] Rody Monson 08/06/2024 1 *SELF PAY* Laith Monson 08/06/2024 1 [facility] [id number] Rody Monson [id number] Rody Monson 08/06/2024 2 [facility] [id number] Rody Monson [id number] Rody Monson Notes Date Note Type Note Provider Name and Address Organization Details Recorded Time 08/06/2024 text/html Provider at the time of the visit is physically in the [place] [facility] patient greeted. Patient name, , telephone [...] interstitial cystitis: yes History of kidney stones: LILLY Mccoy [address] [facility] [address], [place], [address], [facility] 08/07/2024 13:03:28 OBGyn Episode No OBEpisode recorded.
--- OUTSIDE RECORDS SUMMARY | 2024-10-14 01:12 | XMS_ITS | Continuity of Care Document ---
Author Organization [facility] [place] [address] [place] [address] Phone Care Team Providers Care Under Ground Miner Name Role Phone Tomas Clayton Unavailable Unavailable Procedures Procedure Date Eye Exam Established Pt Ophthalmoscopy, Subsequent Office Consultation Ophthalmoscopy Advance Directives Directive Yes / No Effective Date File Name No Information Encounters Encounter Description Practice Location Reason(s) For Visit Diagnoses Date Provider Providers Copied on Encounter [facility], [address] [place] [address] [address], [place], [place], [id number], tel:[phone] [facility] No Information [address] [place], [place], [facility], . [phone] Referring Provider: Tomas Berg, [address] [place], [place], [facility]. tel:[phone] Office Consultation [facility], [address] [place] [address] [address], [place], [place], [id number], tel:[phone] [facility] No Information [address] [place], [place], [facility], [place]. tel:[phone] Referring Provider: Marcio Lagunas, [address], [place], [place], [facility]. tel:[phone] Family History Family Member Type Diagnosis Age [...]
--- OUTSIDE RECORDS SUMMARY | 2024-10-14 01:12 | XMS_ITS | Clinical Summary ---
Author Organization [facility] Address [address] [place] [address] Phone Care Team Providers Care Household Appliances Salesperson Name Role Phone Daly Pinto LAW ENFORCEMENT INSTRUCTOR, DRAFTER (CAD) ELECTRONIC Primary Care Pro vider Medications Aspirin 81 [...] Comments Blood Pressure 130/86 04/08/2019 8:56 AM ROUNDHOUSE FIRER/FIREMAN Pulse 70 04/08/2019 8:56 AM ROUNDHOUSE FIRER/FIREMAN Temperature - - Respiratory Rate - - Oxygen Saturation 98% 04/08/2019 8:56 AM ROUNDHOUSE FIRER/FIREMAN Inhaled Oxygen Concentration - - Weight 108 kg (238 lb) 04/08/2019 8:56 AM ROUNDHOUSE FIRER/FIREMAN Height 160 cm (5' 3 ) 04/08/2019 8:56 AM ROUNDHOUSE FIRER/FIREMAN Body Mass Index 42.16 04/08/2019 8:56 AM ROUNDHOUSE FIRER/FIREMAN Plan of Treatment Health Maintenance Due Date [...] Most Recently Relevant to Health Maintenance Insurance [facility] Care Teams Household Appliances Salesperson Relationship Specialty Start Date End Date Daly Pinto APRN, DRAFTER (CAD) ELECTRONIC [address] [place], [place] [address] PCP - General Certified Nurse Practitioner 11/02/18
--- OUTSIDE RECORDS SUMMARY | 2024-10-14 01:12 | XMS_ITS | Clinical Summary ---
Author Organization [facility] Address [address] [place] [address] Phone Care Team Providers Care Physicist Solid Earth Name Role Phone Daly Pinto NP Primary Care Provider [phone] Allergies Active Allergy Reactions Criticality Noted Date [...] exists Insurance [employer] MEDICARE Care Teams Physicist Solid Earth Relationship Specialty Start Date End Date Daly Pinto NP [address] [address] PCP - General Family Medicine 10/19/18
[2024-10-14 06:30] VITALS: BP 152/73; PULSE 67; RESP 16; TEMP 37.1; O2SAT 100
--- NOTE | 2024-10-14 06:53 | WPDANESEPPF ---
Anes - Initial Pre Proc Eval Procedure: Operation Date: 10/14/24 07:30 Proposed Procedures p Left Extracorporeal Shock Wave Lithotripsy, - Blair Rodrigez MD s Cystoscopy with Left Ureteral Stent Placement - Blair Rodrigez MD Date/Time: 10/14/24 06:53 Surgeon: Blair Rodrigez MD Pre Op Diagnosis: left ureteral stone Patient Data Age: 68 Gender: F Height: 1.6 m Weight: 105.6 kg Last Vital Signs Temp 37.1 C 10/14/24 06:30 Pulse 67 10/14/24 06:30 Resp 16 10/14/24 06:30 BP 152/73 H 10/14/24 06:30 Pulse Ox 100 10/14/24 06:30 O2 Del Method Room Air 10/14/24 06:30 Allergies Allergy/AdvReac Type Severity Reaction Status Date / Time nitrofurantoin (From Allergy Severe Anaphylaxis Verified 10/14/24 06:44 Macrobid) Sulfa (Sulfonamide AdvReac Mild NAUSEA/VOMI Verified 10/14/24 06:44 Antibiotics) TING Home Medications ?Medication ?Instructions ?Recorded ?Confirmed ?Type aspirin 81 mg tablet,delayed 81 mg PO DAILY 05/10/19 09/30/24 History release (Aspir-) losartan 100 mg tablet 100 mg PO QAM 05/10/19 09/30/24 History cetirizine 10 mg tablet (Allergy 10 mg PO DAILY PRN allergy symptoms 09/09/22 09/30/24 History Relief (cetirizine)) famotidine 20 mg tablet 20 mg PO DAILY PRN indigestion 09/09/22 09/30/24 History tramadol 50 mg tablet 50 mg PO Q6H PRN pain 09/09/22 10/14/24 History triamterene 37.5 1 cap PO DAILY 09/30/22 09/30/24 History mg-hydrochlorothiazide 25 mg capsule allopurinol 300 mg tablet 300 mg PO DAILY 10/22/23 09/30/24 History nystatin-triamcinolone 100,000 1 applic topical BID #30 grams 10/22/23 09/30/24 Rx unit/g-0.1 % topical cream epinephrine 0.3 mg/0.3 mL 0.3 mg (0.3 mL) IM ONCE #1 ea 06/15/24 09/30/24 Rx injection, auto-injector (EpiPen) albuterol sulfate 90 mcg/actuation 2 puff inhalation Q6H PRN 09/30/24 09/30/24 History aerosol inhaler shortness of breath or wheezing amlodipine 10 mg tablet 10 mg PO QAM 09/30/24 10/14/24 History cephalexin 250 mg capsule 250 mg PO QAM 09/30/24 10/14/24 History diphenhydramine HCl 25 mg capsule 25 mg PO HS 09/30/24 09/30/24 History (Allergy (diphenhydramine)) meloxicam 7.5 mg tablet 7.5 mg PO BID 09/30/24 09/30/24 History omega 6-eqd-tzv-fish oil 1,000 mg 1 cap PO DAILY 09/30/24 09/30/24 History (120 mg-180 mg) capsule (Fish Oil) rosuvastatin 5 mg tablet 5 mg PO DAILY 09/30/24 09/30/24 History Patient hx anesthesia problems: none Family hx anesthesia problems: none Results Review: All pre-operative results and documents have been reviewed as part of the pre-operative evaluation. [facility] Past Medical History Medical History Allergies Arthritis Hx of renal calculi Hx of adenomatous polyp of colon Sleep apnea Rosacea Hypertension Functional dyspepsia GERD (gastroesophageal reflux disease) Surgical History Surgical History H/O tubal ligation History of left knee replacement History of right oophorectomy History of lithotripsy Hx of section Hx of cholecystectomy Hx of esophagogastroduodenoscopy Hx of colonoscopy Family History Family History Mother Hypertension Father Cerebral aneurysm Other Breast cancer Social History Social History Smoking packs per day: 1 Smoking cigarettes per day: 20.0 Years smoked: 20 Smoking pack-years: 20.00 Smoking status: Former smoker Tobacco type: cigarettes Smoking end date: 11/22/89 Alcohol intake: current Drinks per week: 1 Substance use: never Lack of Transportation: No Lack of Food: Never True Current Housing: I Have Housing Concerned About Future Housing: No Difficulty Paying Gas/Electric Bills: No Difficulty Paying for Meds: No Currently Unemployed: No Education: Trade/Vocational Certificate Difficulty w/ Childcare or Family Care: No Living arrangements: with family Additional living arrangements comments: [facility] Spiritual care concerns: No Anes - Eval Final PreProcedure Day of Procedure 10/14/24 06:53 Patient weight: morbidly obese Heart: regular rate and rhythm Lungs: decreased breath sounds Airway: Mallampati scale class III Neurological: alert and oriented Last oral intake: >/= 8 hours ASA classification: III Emergent: no Anesthetic plan: proceed Anesthesia type and monitoring: general LMA and standard monitoring Results Review: All pre-operative results and documents have been reviewed as part of the pre-operative evaluation. Informed Consent: The patient's anesthetic plan and its attendant risks and benefits were discussed with the patient/family/POA. Questions were solicited and answers provided to the satisfaction of the patient/family/POA.
[2024-10-14] MEDS: LACTATED RINGERS 1,000 ML 30 ML IV CONT (07:00)
--- NOTE | 2024-10-14 07:26 | PM.IMHP ---
H&P: HPI History of Present Illness Date/Time: 10/14/24 07:26 Chief Complaint: left renal calculi Narrative: 68 yr old female with 2 large stones in left kidney. Here for management. Review of Systems Review of Systems: All systems reviewed & are unremarkable except as noted in HPI and below PMFSH Past Medical History Medical History Allergies Arthritis Hx of renal calculi Hx of adenomatous polyp of colon Sleep apnea Rosacea Hypertension Functional dyspepsia GERD (gastroesophageal reflux disease) Surgical History Surgical History H/O tubal ligation History of left knee replacement History of right oophorectomy History of lithotripsy Hx of section Hx of cholecystectomy Hx of esophagogastroduodenoscopy Hx of colonoscopy Family History Family History Mother Hypertension Father Cerebral aneurysm Other Breast cancer Social History Social History Smoking packs per day: 1 Smoking cigarettes per day: 20.0 Years smoked: 20 Smoking pack-years: 20.00 Smoking status: Former smoker Tobacco type: cigarettes Smoking end date: 11/22/89 Alcohol intake: current Drinks per week: 1 Substance use: never Lack of Transportation: No Lack of Food: Never True Current Housing: I Have Housing Concerned About Future Housing: No Difficulty Paying Gas/Electric Bills: No Difficulty Paying for Meds: No Currently Unemployed: No Education: Trade/Vocational Certificate Difficulty w/ Childcare or Family Care: No Living arrangements: with family Additional living arrangements comments: [facility] Spiritual care concerns: No Meds Home Medications and Allergies Home Medications ?Medication ?Instructions ?Recorded ?Confirmed ?Type aspirin 81 mg tablet,delayed 81 mg PO DAILY 05/10/19 09/30/24 History release (Aspir-) losartan 100 mg tablet 100 mg PO QAM 05/10/19 09/30/24 History cetirizine 10 mg tablet (Allergy 10 mg PO DAILY PRN allergy symptoms 09/09/22 09/30/24 History Relief (cetirizine)) famotidine 20 mg tablet 20 mg PO DAILY PRN indigestion 09/09/22 09/30/24 History tramadol 50 mg tablet 50 mg PO Q6H PRN pain 09/09/22 10/14/24 History triamterene 37.5 1 cap PO DAILY 09/30/22 09/30/24 History mg-hydrochlorothiazide 25 mg capsule allopurinol 300 mg tablet 300 mg PO DAILY 10/22/23 09/30/24 History nystatin-triamcinolone 100,000 1 applic topical BID #30 grams 10/22/23 09/30/24 Rx unit/g-0.1 % topical cream epinephrine 0.3 mg/0.3 mL 0.3 mg (0.3 mL) IM ONCE #1 ea 06/15/24 09/30/24 Rx injection, auto-injector (EpiPen) albuterol sulfate 90 mcg/actuation 2 puff inhalation Q6H PRN 09/30/24 09/30/24 History aerosol inhaler shortness of breath or wheezing amlodipine 10 mg tablet 10 mg PO QAM 09/30/24 10/14/24 History cephalexin 250 mg capsule 250 mg PO QAM 09/30/24 10/14/24 History diphenhydramine HCl 25 mg capsule 25 mg PO HS 09/30/24 09/30/24 History (Allergy (diphenhydramine)) meloxicam 7.5 mg tablet 7.5 mg PO BID 09/30/24 09/30/24 History omega 8-uiz-syu-fish oil 1,000 mg 1 cap PO DAILY 09/30/24 09/30/24 History (120 mg-180 mg) capsule (Fish Oil) rosuvastatin 5 mg tablet 5 mg PO DAILY 09/30/24 09/30/24 History Allergies Allergy/AdvReac Type Severity Reaction Status Date / Time nitrofurantoin (From Allergy Severe Anaphylaxis Verified 10/14/24 06:44 Macrobid) Sulfa (Sulfonamide AdvReac Mild NAUSEA/VOMI Verified 10/14/24 06:44 Antibiotics) TING Vital Signs Vital Signs - 24 hr 10/14/24 06:30 Temperature 37.1 C Pulse Rate 67 Respiratory Rate 16 Blood Pressure 152/73 H Pulse Oximetry 100 Oxygen Delivery Room Air Exam Const: General: cooperative and comfortable Resp: Effort & Inspection: normal respiratory effort Cardio: Rate: regular rate Rhythm: regular rhythm Assessment and Plan Assessment and plan (1) Left renal stone: Code(s): N20.0 - Calculus of kidney Status: Acute Assessment and Plan: Proceed with cystoscopy, left retrograde, left stent placement, left renal eswl
--- NOTE | 2024-10-14 07:28 | WPDHPUPDATE1 ---
History and Physical Update Update Date/Time: 10/14/24 07:28 History and Physical has been reviewed, including an updated exam of the patient. There are NO changes in the patient's condition. Risks, benefits, and alternatives have been discussed and questions answered. Patient agrees to proceed with procedure.
[2024-10-14] MEDS: ceFAZolin 2 GM/D5W 50 ML 2 GM/50 ML BAG IVPB (07:30)
[2024-10-14] MEDS: LIDOCAINE 2% GEL UROJET 10 ML PKG MUCOUS MEM (07:39)
[2024-10-14] MEDS: SCOPOLAMINE 1 MG PATCH 1 PATCH TRANSDERM (07:55)
--- NOTE | 2024-10-14 08:14 | W.PM.PROC2 ---
Procedure Note - Detailed Date of Procedure 10/14/24 Pre-op Diagnosis left RENAL stone Post-op Diagnosis Same Procedure Performed Cystoscopy, left stent placement, left renal ESWL Surgeon Blair Rodrigez MD Anesthesia General Description of Procedure Patient was taken to the operative suite correctly identified. Once anesthesia was obtained she was frog-legged prepped draped usual sterile fashion. Flexible cystoscope was inserted the bladder. There were no tumors. The left orifice was cannulated with a wire. 4.8 [place] Islander contour stent was then placed with the proximal end coiled in the renal pelvis and the distal in the bladder. Patient was repositioned with the 2 stones localized in the cross hairs. Two thousand five hundred shocks were given. There appeared to be fragmentation. Patient tolerated procedure well without any complications and was taken recovery stable condition. She will follow-up in 7-10 days with KUB. This completes dictation. Please send a copy of op note to my office. Estimated Blood Loss 0 Drains Yes Packing No Pathology None sent Complications No immediate complications Condition Stable Disposition PACU
[2024-10-14 08:27] VITALS: BP 148/59; PULSE 77; RESP 8; TEMP 36.3; O2SAT 97
[2024-10-14 08:35] VITALS: BP 145/67; PULSE 69; RESP 16; O2SAT 99
[2024-10-14 08:50] VITALS: BP 123/71; PULSE 69; RESP 20; O2SAT 98
[2024-10-14 09:05] VITALS: BP 146/93; PULSE 64; RESP 20
[2024-10-14 09:30] VITALS: BP 134/62; PULSE 56; RESP 20
[2024-10-14] MEDS: oxyBUTYnin CHLORIDE 5 MG TABLET PO (09:33)
== END 2024-10-14 09:54 | disposition home or self-care (01) ==
PROVIDERS: PCP Family Medicine; Visit Provider Urology
PROC: (CPT 50590; principal; 2024-10-14 07:30)
PROC: (CPT 52352; 2024-10-14 07:30)
DX: N20.0 Calculus of kidney (principal); Z87.891 Personal history of nicotine dependence; E66.01 Morbid (severe) obesity due to excess calories; Z68.41 Body mass index [BMI] 40.0-44.9, adult
CPT/HCPCS: 52332; 50590; 74018; A9270; C1769; C2617; J0690; J1100; J2003; J2405; J2704; J3010; J7030; J7120

== ENCOUNTER 2024-10-25 11:56 | Outpatient (CLI) | payer MEDICARE, SELFPAY ==
--- NOTE | ~2024-10-25 | XR_ITS ---
XR abdomen/kub 1V 10/25/2024 12:28 Indication: Left urethral stone Procedure: KUB Comparison: 10/14/2024 Findings: There are left renal stones. There is a left internal ureteral stent in expected position. There are cholecystectomy clips. Nonobstructive bowel gas pattern. Moderate lumbar spondylosis. Impression: 1: Left nephrolithiasis. Reviewed, dictated and finalized at location A. Impression: 1: Left nephrolithiasis.
--- OUTSIDE RECORDS SUMMARY | 2024-10-25 12:00 | XMS_ITS | Clinical Summary ---
Author Organization [facility] Address [address] [place] [address] Care Team Providers Care First Coat Sander Name Role Phone Fabiola Melo MD Unavailable [phone] Brittany Elias MD Primary Care Provider [phone] Source Comments [facility],non-owned Affiliates and Associated Physician Practices is amultiple site organization consisting of ambulatory clinics and hospital sitesin [place], [place], [place] and [place]. This disclosure is being madepursuant to the Care Everywhere program and may not contain all information available regarding this patient. 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 Gender Identity Not on file Sexual Orientation [...] 11:22 AM CDT Height 160 cm (5' 3) 02/28/2019 11:22 AM CDT Body Mass Index [...] this topic Medical Devices Implanted Type Area Aluminum Siding Installer Device Identifier Shelf Expiration Date Model / Serial / Lot Cmnt Bone Cblt 40gm Hvisc Strl Implanted:Qty: 1 on 02/11/2018 by Toño Johnston MD at [facility] Left: Knee [employer] 02/21/2019 [id number] / / [id number] Cmpnt Ptlr 28mm 1 Pg Wire Ascnt Arcm Kn Implanted:Qty: 1 on 02/11/2018 by Toño Johnston MD at [facility] Left: Knee [employer] 01/29/2023 [id number] / / [id number] Tray Tib 71mm Kn Cocr I Beam Implanted:Qty: 1 on 02/11/2018 by Toño Johnston MD at [facility] Left: Knee [employer] 12/02/2027 [id number] / / [id number] Cmpnt Fem Kn Lt Cr Cmnt Prm Vngrd Intlk Implanted:Qty: 1 on 02/11/2018 by Toño Johnston MD at [facility] Left: Knee [employer] 10/21/2027 [id number] / / [id number] Brng 26niu64sg Vngrd Arcm Kn Ant Stab Implanted:Qty: 1 on 02/11/2018 by Toño Johnston MD at [facility] Left: Knee [employer] 12/22/2022 [id number] / / [id number] Procedures Procedure Name Priority Date/Time Associated Diagnosis [...] ORDERABLES Fi nal Result Performing Organization Address City/State/[facility] Co de Phone Number [facility] [address] [place] [address] from Last 3 Months or Most Recently Relevant to Health Maintenance Insurance GREG ANTHEM Advance Directives * Full Code (Latest Code Status on File) Date Activated Date Inactivated Comments 02/11/2018 11:11 AM 02/14/2018 1:10 PM Care Teams First Coat Sander Relationship Specialty Start Date End Date Brittany Elias MD [address] [place] [phone] PCP - General 05/26/19 [place] [address] [address] Orthopedic Surgery 06/06/14
--- OUTSIDE RECORDS SUMMARY | 2024-10-25 12:00 | XMS_ITS | Clinical Summary ---
Author Organization [facility] Address [address] [place] [address] Phone Care Team Providers Care Executive Chef Name Role Phone Daly Pinto NP Primary Care Provider [phone] Allergies Active Allergy Reactions Criticality Noted Date [...] 10:56 AM CDT Height 160 cm (5' 3) 12/07/2019 10:56 AM CDT Body Mass Index 43.75 12/07/2019 10:56 AM CDT Plan of Treatment Health Maintenance Due Date Last Done Comments Pneumococcal PPSV23/PCV13 65 + Years / Low and Medium Risk (1 of 4 - PCV) 2004 Influenza Vaccine (Season Ended) 2025 02/22/2019, 02/12/2018, 04/28/2016, Additional history exists Insurance [place] [address] Care Teams Executive Chef Relationship Specialty Start Date End Date Daly Pinto NP [address] [address] PCP - General Family Medicine 10/19/18
--- OUTSIDE RECORDS SUMMARY | 2024-10-25 12:00 | XMS_ITS | Data Portability ---
Author Organization [place] - [facility] [employer] [facility] Address [address] [place] [address] Assessment Encounter Date Assessment Date Assessment LastModified by Organization Details LastModified Time 08/06/2024 08/06/2024 Ddx: UTI, STI, Pyelonephritis A: Patient s symptoms and history consistent with urinary tract infection. P: Provided counseling/treatme nt recommendations as noted below: Medication prescribed: See Rx section If any medications were discussed (either prescription or [id number]), please review any potential side effects before [...] Cipro 250 mg tablet 025 08/07/19 25 [facility][id number], [address] [place], [address], 18:41:41 Patient TargetsNo targets recorded. Patient Instructions Encounter Date Encounter Id Patient Instructions Last Modified By Organization Details Last Modified Time 08/06/2024 [id number] Urinary Tract Infection (UTI) in Women: Care [...] Name and Address Organization Details Recorded Time [id number] Macrobid medicatio n Not available Not available Not available 08/06/2024 [id number] 1 RxNorm Not Available Included [facility] 17:37:03 [id number] Substance with sulfonami de structure and antibacte rial mechanism of action (substanc e) medicatio n Not available Not available Not available 08/06/2024 [id number] SNOMED Not Available Included [facility] 17:37:03 Medications Name Sig Start Date Stop [...] SNOMED-CT Code Diagnosis ICD10 Code Diagnosis Note [id number] LILLY Agarwal [facility] [place] [address] 08/06/2024 17:41:34 08/06/2024 17:47:23 Patient not examined [id number] Z53.9 [id number] LILLY Agarwal [facility] [place] [address] 08/06/2024 17:50:32 08/07/2024 15:27:58 Acute urinary tract infection [id number] N39.0 Health Concerns Section Related Observation LastModified by Organization Detai ls LastModified Time None Recorded Concern Status LastModified by Organization Details LastModified Time None Recorded Advance Directives Directive None Recorded Payers Insurance Date Sequence Insurance Name Policy Number Policy Dunham Covered Member ID Dunham Member ID Guarantor Name 08/06/2024 [employer] [id number] Rody Monson [id number] Rody Monson 08/06/2024 3 *SELF PAY* [id number] Rody Monson [id number] Rody Monson 08/06/2024 1 *SELF PAY* Laith Monson 08/06/2024 1 [facility] [id number] Rody Monson [id number] Rody Monson 08/06/[address] [facility] [id number] Rody Monson [id number] Rody Monson Notes Date Note Type Note Provider Name and Address Organization Details Recorded Time 08/06/2024 text/html Provider at the time of the visit is physically in the [place] [facility] [place], patient greeted. Patient name, , telephone [...] History of kidney stones: LILLY Mccoy [address] [facility] [address], [place], [address], [facility] 08/07/2024 13:03:28 OBGyn Episode No OBEpisode recorded.
--- OUTSIDE RECORDS SUMMARY | 2024-10-25 12:00 | XMS_ITS | Continuity of Care Document ---
Author Organization [facility] Address [address] [place] [address] Phone Care Team Providers Care Technical Asst Name Role Phone Tomas Clayton Unavailable Unavailable Procedures Procedure Date Eye Exam Established Pt Ophthalmoscopy, Subsequent Office Consultation Ophthalmoscopy Advance Directives Directive Yes / No Effective Date File Name No Information Encounters Encounter Description Practice Location Reason(s) For Visit Diagnoses Date Provider Providers Copied on Encounter [facility], [address] [place] [address] [address], [place], [place], [id number], tel:[phone] [facility] No Information [address] [place], [place], [facility], . [phone] Referring Provider: Tomas Berg, [address] [place], [place], [facility]. tel:[phone] Office Consultation [facility], [address] [place] [address] [address], [place], [place], [id number], tel:[phone] [facility] No Information [address] [place], [place], [facility], [place]. tel:[phone] Referring Provider: Marcio Lagunas, [address], [place], [place], [facility]. tel:[phone] Family History Family Member Type Diagnosis Age [...]
--- OUTSIDE RECORDS SUMMARY | 2024-10-25 12:00 | XMS_ITS | Clinical Summary ---
Author Organization [facility] Address [address] [place] [address] Phone Care Team Providers Care Custom Studio Coordinator Name Role Phone Daly Pinto TREATMENT TECHNICIAN, ORAL SURGEON Primary Care Pro vider Medications Aspirin 81 [...] Comments Blood Pressure 130/86 04/08/2019 8:56 AM GROUP INSURANCE SPECIAL AGENT Pulse 70 04/08/2019 8:56 AM GROUP INSURANCE SPECIAL AGENT Temperature - - Respiratory Rate - - Oxygen Saturation 98% 04/08/2019 8:56 AM GROUP INSURANCE SPECIAL AGENT Inhaled Oxygen Concentration - - Weight 108 kg (238 lb) 04/08/2019 8:56 AM GROUP INSURANCE SPECIAL AGENT Height 160 cm (5' 3) 04/08/2019 8:56 AM GROUP INSURANCE SPECIAL AGENT Body Mass Index 42.16 04/08/2019 8:56 AM GROUP INSURANCE SPECIAL AGENT Plan of Treatment Health Maintenance Due Date [...] Most Recently Relevant to Health Maintenance Insurance [facility] Care Teams Custom Studio Coordinator Relationship Specialty Start Date End Date Daly Pinto APRN, ORAL SURGEON [address] [place], [place] [id number] PCP - General Certified Nurse Practitioner 11/02/18
== END 2024-10-25 11:57 | disposition home or self-care (01) ==
PROVIDERS: PCP Family Medicine; Visit Provider Physician Assistant Medical
DX: N20.1 Calculus of ureter (principal)
CPT/HCPCS: 74018

== ENCOUNTER 2024-11-02 10:22 | Outpatient (CLI) | payer MEDICARE, SELFPAY ==
--- NOTE | ~2024-11-02 | XR_ITS ---
Supine and upright views of the abdomen Clinical history: Renal stone COMPARISON: 10/25/2024 Findings: Bowel gas pattern is nonspecific. No evidence for obstruction or free air. Left ureteral st ent in place. Possible small stones the left renal pelvis region. Osseous structures are intact. Impression: Left ureteral stent with probable small stones the left renal pelvis region. Reviewed, dictated and finalized at [facility]. Impression: Left ureteral stent with probable small stones the left renal pelvis region.
--- OUTSIDE RECORDS SUMMARY | 2024-11-02 12:01 | XMS_ITS | Clinical Summary ---
Author Organization [facility] Address [address] [place] [address] Care Team Providers Care Electroencephalographic Technician Name Role Phone Fabiola Melo MD Unavailable [phone] Brittany Elias MD Primary Care Provider [phone] Source Comments [facility],non-owned Affiliates and Associated Physician Practices is amultiple site organization consisting of ambulatory clinics and hospital sitesin [place], [place], [place] and [place]. This disclosure is being madepursuant to the Care Everywhere program and may not contain all information available regarding this patient. Last updated 18.[facility] Allergies Active Allergy Reactions Criticality Noted Date [...] fluticasone propionate (FLONASE) 50 MCG/ACT nasal spray [place] 2 sprays into each nostril nightly as [...] on file Legal Sex Female 12:16 PM [employer] Gender Identity Not on file Sexual Orientation [...] this topic Medical Devices Implanted Type Area Watch Repairer Device Identifier Shelf Expiration Date Model / Serial / Lot Cmnt Bone Cblt 40gm Hvisc Strl Implanted:Qty: 1 on 02/11/2018 by Toño Johnston MD at [facility] Left: Knee [employer] 02/21/2019 600-15-000 / / [id number] Cmpnt Ptlr 28mm 1 Pg Wire Ascnt Arcm Kn Implanted:Qty: 1 on 02/11/2018 by Toño Johnston MD at [facility] Left: Knee [employer] 01/29/2023 [id number] / / [id number] Tray Tib 71mm Kn Cocr I Beam Implanted:Qty: 1 on 02/11/2018 by Toño Johnston MD at [facility] Left: Knee [employer] 12/02/2027 [id number] / / [id number] Cmpnt Fem Kn Lt Cr Cmnt Prm Vngrd Intlk Implanted:Qty: 1 on 02/11/2018 by Toño Johnston MD at [facility] Left: Knee [employer] 10/21/2027 [id number] / / [id number] Brng [id number] Vngrd Arcm Kn Ant Stab Implanted:Qty: 1 on 02/11/2018 by Toño Johnston MD at [facility] Left: Knee [employer] 12/22/2022 [id number] / / [id number] Procedures Procedure Name Priority Date/Time Associated Diagnosis [...] ORDERABLES Fi nal Result Performing Organization Address City/State/[facility] Co de Phone Number [facility] [address] [place] [address] from Last 3 Months or Most Recently Relevant to Health Maintenance Insurance GREG ANTHEM Advance Directives * Full Code (Latest Code Status on File) Date Activated Date Inactivated Comments 02/11/2018 11:11 AM 02/14/2018 1:10 PM Care Teams Electroencephalographic Technician Relationship Specialty Start Date End Date Brittany Elias MD [address] [place] [address] [phone] PCP - General 05/26/19 [place] [id number] [address] Orthopedic Surgery 06/06/14
--- OUTSIDE RECORDS SUMMARY | 2024-11-02 12:02 | XMS_ITS | Data Portability ---
Author Organization [place] [facility] [employer] [facility] Address [address] [place] [address] Assessment Encounter Date Assessment Date Assessment LastModified by Organization Details LastModified Time 08/06/2024 08/06/2024 Ddx: UTI, STI, Pyelonephritis A: Patient s symptoms and history consistent with urinary tract infection. P: Provided counseling/treatme nt recommendations as noted below: Medication prescribed: See Rx section If any medications were discussed (either prescription or [id number]-cys-meejwkv), please review any potential side effects before [...] Cipro 250 mg tablet 025 08/07/19 25 [id number], [address] [place], [address], 18:41:41 Patient TargetsNo targets recorded. Patient Instructions Encounter Date Encounter Id Patient Instructions Last Modified By Organization Details Last Modified Time 08/06/2024 [id number] Urinary Tract Infection (UTI) in Women: Care [...] Name and Address Organization Details Recorded Time [id number] Macrobid medicatio n Not available Not available Not available 08/06/2024 [id number] RxNorm Not Available Included [facility] 17:37:03 [id number] Substance with sulfonami de structure and antibacte rial mechanism of action (substanc e) medicatio n Not available Not available Not available 08/06/2024 [id number] SNOMED Not Available Included [facility] 17:37:03 Medications Name Sig Start Date [...] SNOMED-CT Code Diagnosis ICD10 Code Diagnosis Note [id number] LILLY Agarwal [facility] [place] [address] 08/06/2024 17:41:34 08/06/2024 17:47:23 Patient not examined 541875404 Z53.9 [id number] LILLY Agarwal [facility] [place] [address] 08/06/2024 17:50:32 08/07/2024 15:27:58 Acute urinary tract infection [id number] N39.0 Health Concerns Section Related Observation LastModified by Organization Detai ls LastModified Time None Recorded Concern Status LastModified by Organization Details LastModified Time None Recorded Advance Directives Directive None Recorded Payers Insurance Date Sequence Insurance Name Policy Number Policy Dunham Covered Member ID Dunham Member ID Guarantor Name 08/06/2024 [employer] [id number] Rody Monson [id number] Rody Monson 08/06/2024 3 *SELF PAY* [id number] Rody Monson [id number] Rody Monson 08/06/2024 1 *SELF PAY* Laith Monson 08/06/[address] [facility] [id number] Rody Monson [id number] Rody Monson 08/06/2024 2 [facility] [id number] Rody Monson [id number] Rody Monson Notes Date Note Type Note Provider Name and Address Organization Details Recorded Time 08/06/2024 text/html Provider at the time of the visit [place] [facility] [place] [facility] greeted. Patient name, , [...] History of kidney stones: LILLY Mccoy [address] [facility] [address], [place], [address], [facility] 08/07/2024 13:03:28 OBGyn Episode No OBEpisode recorded.
--- OUTSIDE RECORDS SUMMARY | 2024-11-02 12:02 | XMS_ITS | Data Portability ---
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 Annual labs in 09/16. [email or web address] Not available 07/21/2024 12:22:19 09/21/2024 09/21/2024 68 [...] per schedule. Cont f/u with Uro at [place] as per schedule. Cont f/u with Ophtho [...] in 2-3 weeks. Annual labs in 09/17. Not available 09/21/2024 14:27:40 10/05/2024 10/05/2024 68 [...] per schedule. Cont f/u with Uro at [place] as per schedule. Cont f/u with Ophtho [...] Lipids in 02/16. Annual labs in 09/17. [email or web address] Not available 10/05/2024 10:31:44 Plan of Treatment Reminders Order Date Submit Date Provider Last Modified By Organization Details Last Modified Time Details Appointments Follow Up 15 2024 08:45A Odin Faye MD Not available Not available Not available Lab lipid panel, serum 2024 025 [email or web address] [facility] (Lab), [address] [place], [address], 10/05/2024 10:27:38 PTH (parathyr oid hormone), intact + calcium, serum or plasma 2024 025 [email or web address] [facility] (Lab), [address] [place], [address], 09/28/2024 10:09:27 urinalysi s, dipstick 2024 025 [email or web address] [facility], [address] [place], [address], 09/21/2024 14:45:15 CBC w/ auto diff [address] (Lab), [address] [place], [address], 09/21/2024 14:49:44 CMP, serum or plasma 2024 025 [facility] (Lab), [address] [place], [address], 09/21/2024 20:01:42 urinalysi s complete, reflex culture [address] (Lab), [address] [place], [address], 09/21/2024 14:48:30 uric acid, serum or plasma 2024 025 [facility] (Lab), [address] [place], [address], 09/21/2024 20:01:35 lipid panel, serum 2024 025 [facility] (Lab), [address] [place], [address], 09/21/2024 20:01:46 TSH, serum or plasma 2024 025 [facility] (Lab), [address] [place], [address], 09/21/2024 20:36:14 glycohemo globin, total, blood 2024 025 [facility] (Lab), [address] [place], [address], 09/21/2024 20:26:48 vitamin D, 25-hydrox y, total, serum 2024 025 [email or web address] [facility] (Lab), [address] [place], [address], 09/28/2024 10:09:27 urinalysi s, dipstick 2024 025 [facility], [address] [place] [address], [address], 07/21/2024 12:23:41 culture, urine 2024 025 [facility] (Lab), [address] [place], [address], 07/22/2024 07:44:27 urinalysi s, dipstick 2024 025 [facility], [address] [place] [address], [address], 06/15/2024 10:58:49 culture, urine + sensitivi ty 2024 025 [facility] (Lab), [address] [place], [address], 06/22/2024 08:03:50 Referral endocrino logy referral - [place]. Please call patient to schedule an appointme nt. Thank you. 2024 025 EULALIA Mcbride MD, [address] [facility] [address], [place], [address], 10/07/2024 15:17:31 urologist referral - Recurrent UTIs ++ Please call patient to schedule an appointme nt with Ap Greco. Thank you. 2024 025 [email or web address] [facility], [address] [place] [address] [address], [place], [address], 10/21/2024 09:33:25 Procedures None recorded. Surgeries None recorded. Imaging None recorded. Medication Orders alendrona te 70 mg tablet 2024 [facility], [address], [place], [place], [address], 10/05/2024 10:27:49 amlodipin e 5 mg tablet 2024 [facility], [address], [place], [place], [address], 10/05/2024 10:27:50 losartan 100 mg tablet 2024 [facility], [address], [place], [place], [address], 10/05/2024 10:27:46 triamtere ne 37.5 mg-hydroc hlorothia zide 25 mg capsule 2024 025 [facility], [address], [place], [place], [address], 10/05/2024 10:27:50 rosuvasta tin 10 mg tablet 2024 025 [facility], [address], [place], [address], 10/05/2024 10:27:47 allopurin ol 300 mg tablet 2024 025 [facility], [address], [place], [address], 10/05/2024 10:27:47 meloxicam 7.5 mg tablet 2024 025 [facility], [address], [place], [place], [address], 10/05/2024 10:27:47 escitalop marty 10 mg tablet 2024 025 [facility], [address], [place], [place], [address], 10/05/2024 10:27:49 alendrona te 70 mg tablet 2024 [facility], [address], [place], [address], 09/21/2024 14:15:45 amlodipin e 5 mg tablet 2024 [facility], [address], [place], [address], 09/21/2024 14:15:41 losartan 100 mg tablet 2024 [facility], [address], [place], [address], 09/21/2024 14:15:43 triamtere ne 37.5 mg-hydroc hlorothia zide 25 mg capsule 2024 [facility], [address], [place], [address], 09/21/2024 14:15:42 allopurin ol 300 mg tablet 2024 [facility], [address], [place], [address], 09/21/2024 14:15:41 rosuvasta tin 5 mg tablet [address] [facility], [address], [place], [address], 10/05/2024 10:30:40 meloxicam 7.5 mg tablet [address] [facility], [address], [place], [address], 09/21/2024 14:17:29 escitalop marty 10 mg tablet 2024 025 [facility], [address], [place], [address], 09/21/2024 14:15:42 azithromy poli 250 mg tablet 2024 025 [facility], [address], [place], [address], 08/17/2024 15:00:30 prednison e 10 mg tablet 2024 025 [facility], [address], [place], [address], 08/17/2024 15:00:29 albuterol sulfate HFA 90 mcg/actua tion aerosol inhaler [address] [facility], [address], [place], [address], 08/17/2024 15:01:31 benzonata te 200 mg capsule 2024 025 [facility], [address], [place], [address], 08/17/2024 15:00:30 cephalexi n 500 mg capsule [address] [facility], [address], [place], [address], 08/17/2024 14:35:51 alendrona te 70 mg tablet 2024 025 [facility], [address], [place], [address], 07/21/2024 12:05:25 losartan 100 mg tablet 2024 025 [facility], [address], [place], [address], 07/21/2024 12:05:30 triamtere ne 37.5 mg-hydroc hlorothia zide 25 mg capsule 2024 [facility], [address], [place], [place], [address], 07/21/2024 12:05:23 amlodipin e 10 mg tablet 2024 [facility], [address], [place], [place], [address], 07/21/2024 12:08:14 allopurin ol 300 mg tablet [address] [facility], [address], [place], [place], [address], 07/21/2024 12:11:32 rosuvasta tin 5 mg tablet [address] [place] [address] Pharm[address], [address], [place], [place], [address], 10/05/2024 10:30:40 meloxicam 7.5 mg tablet 2024 [facility], [address], [place], [address], 07/21/2024 12:05:27 escitalop marty 10 mg tablet 2024 025 [facility], [address], [place], [place], [address], 07/21/2024 12:05:26 Macrobid 100 mg capsule [address] [facility], [address], [place], [place], [address], 07/21/2024 11:39:16 Patient TargetsNo targets recorded. Patient Instructions Encounter Date Encounter Id Patient Instructions Last Modified By Organization Details Last Modified Time 07/21/2024 [id number] starting a weigh t loss plan: care instructions Not available 07/21/2024 12:05:10 09/21/2024 [id number] starting a weigh t loss plan: care instructions Not available 09/21/2024 14:15:29 10/05/2024 [id number] starting a weigh t loss plan: care instructions Not available 10/05/2024 10:27:38 Reason for Referral Urologist Referral for Blood in urine Recurrent UTIs ++ Please call patient to schedule an appointment with Ap Greco. Thank you. Referring Physician: Michael Faye [facility], Encounter Date: 07/21/2024 Endocrinology Referral for H yperparathyroidism [place], [place]. Please call patient to schedule an appointment. Thank you. Referring Physician: Michael Faye [facility], Encounter Date: 10/05/2024 Results Created Date Observation Date Name Description Value Unit Range Abnormal Flag Note LastModifiedBy Organization Detail LastModifiedTime 06/15/19 25 06/15/2024 urina lysis , dipst ick Leukocytes (reference range: negative afshan/ l) Modera te Not Available [address], [address], 06/15/2024 10:46:33 06/15/19 25 06/15/2024 urina lysis , dipst ick Nitrite (reference rage: negative mg/dl) negati ve Not Available [address], [address], 06/15/2024 10:46:33 06/15/19 25 06/15/2024 urina lysis , dipst ick Urobilinogen (reference range: 0.2-1 mg/dl) 0.2 Not Available [address], [address], 06/15/2024 10:46:33 06/15/19 25 06/15/2024 urina lysis , dipst ick Protein (reference range: negative mg/dl) Trace Not Available [address], [address], 06/15/2024 10:46:33 06/15/19 25 06/15/2024 urina lysis , dipst ick pH (reference range: 5-7) 7.0 Not Available [address], [address], 06/15/2024 10:46:33 06/15/19 25 06/15/2024 urina lysis , dipst ick Blood (reference range: negative Cornelio/ l) Negati ve Not Available [address], [address], 06/15/2024 10:46:33 06/15/19 25 06/15/2024 urina lysis , dipst ick Specific [place] (reference range: 1.005-1.030) 1.010 Not Available [address], [address], 06/15/2024 10:46:33 06/15/19 25 06/15/2024 urina lysis , dipst ick Ketone (reference range: negative mg/dl) Negati ve Not Available [address], [address], 06/15/2024 10:46:33 06/15/19 25 06/15/2024 urina lysis , dipst ick Bilirubin (reference range: negative mg/dl) Negati ve Not Available [address], [address], 06/15/2024 10:46:33 01/22/06/15/2024 urina lysis , dipst ick Glucose (reference range: negative mg/dl) Negati ve Not Available [address], [address], 06/15/2024 10:46:33 06/15/19 25 06/15/2024 urina lysis , dipst ick Appearance Clear Not Available [address], [address], 06/15/2024 10:46:33 06/15/19 25 06/15/2024 urina lysis , dipst ick Color Yellow Not Available [address], [address], 06/15/2024 10:46:33 07/21/19 25 07/21/2024 CULTU RE URINE urc ===== ===== ===== ===== ===== ===== ===== ===== ===== ===== ===== ===== ===== ===== ===== ===== ===== ===== ===== ===== ===== ===== ===== ===== Speci men NO.: [id number] Exam Statu s: Final Proce dure: [...] Genta [place]in [address] [place] [id number] Oxida se React ion N Extra Sensi [...] furan toin <=32 S S Not Available [facility] (Lab) [address] [place], [address], 07/23/2024 07:54:30 07/21/19 25 07/21/2024 urina lysis , dipst ick Leukocytes (reference range: negative afshan/ l) Trace Not Available [address], [address], 07/21/2024 12:04:50 07/21/19 25 07/21/2024 urina lysis , dipst ick Nitrite (reference rage: negative mg/dl) positi ve Not Available [address], [address], 07/21/2024 12:04:50 07/21/19 25 07/21/2024 urina lysis , dipst ick Urobilinogen (reference range: 0.2-1 mg/dl) 0.2 Not Available [address], [address], 07/21/2024 12:04:50 07/21/19 25 07/21/2024 urina lysis , dipst ick Protein (reference range: negative mg/dl) Negati ve Not Available [address], [address], 07/21/2024 12:04:50 07/21/19 25 07/21/2024 urina lysis , dipst ick pH (reference range: 5-7) 7.0 Not Available [address], [address], 07/21/2024 12:04:50 07/21/19 25 07/21/2024 urina lysis , dipst ick Blood (reference range: negative Cornelio/ l) Negati ve Not Available [address], [address], 07/21/2024 12:04:50 07/21/19 25 07/21/2024 urina lysis , dipst ick Specific [place] (reference range: 1.005-1.030) 1.010 Not Available [address], [address], 07/21/2024 12:04:50 07/21/19 25 07/21/2024 urina lysis , dipst ick Ketone (reference range: negative mg/dl) Negati ve Not Available [address], [address], 07/21/2024 12:04:50 07/21/19 25 07/21/2024 urina lysis , dipst ick Bilirubin (reference range: negative mg/dl) Negati ve Not Available [address], [address], 07/21/2024 12:04:50 07/21/19 25 07/21/2024 urina lysis , dipst ick Glucose (reference range: negative mg/dl) Negati ve Not Available [address], [address], 07/21/2024 12:04:50 07/21/19 25 07/21/2024 urina lysis , dipst ick Appearance Clear Not Available [address], [address], 07/21/2024 12:04:50 07/21/19 25 07/21/2024 urina lysis , dipst ick Color Pale Yellow Not Available [address], [address], 07/21/2024 12:04:50 09/22/19 25 09/21/2024 URINA LYSIS COMPL ETE/I RIS W/RFX color COLORL ESS Not Available [facility] (Lab) [address] [place], [address], 09/21/2024 19:46:22 09/22/19 25 09/21/2024 URINA LYSIS COMPL ETE/I RIS W/RFX appear CLEAR Not Available [facility] (Lab) [address] [place], [address], 09/21/2024 19:46:22 09/22/19 25 09/21/2024 URINA LYSIS COMPL ETE/I RIS W/RFX specific gravity 1.006 1.001- 1.030 Not Available [facility] (Lab) [address] [place], [address], 09/21/2024 19:46:22 09/22/19 25 09/21/2024 URINA LYSIS COMPL ETE/I RIS W/RFX pH 7.0 pH_un its 5.0-9. 0 Not Available [facility] (Lab) [address] [place], [address], 09/21/2024 19:46:22 09/22/19 25 09/21/2024 URINA LYSIS COMPL ETE/I RIS W/RFX leukocytes 75 afshan/u L negati ve- abnormal Not Available [facility] (Lab) [address] [place], [address], 09/21/2024 19:46:22 09/22/19 25 09/21/2024 URINA LYSIS COMPL ETE/I RIS W/RFX nitrite NEGATI VE negati ve- Not Available [facility] (Lab) [address] [place], [address], 09/21/2024 19:46:22 09/22/19 25 09/21/2024 URINA LYSIS COMPL ETE/I RIS W/RFX protein NEGATI VE mg/dL negati ve- Not Available [facility] (Lab) [address] [place], [address], 09/21/2024 19:46:22 09/22/19 25 09/21/2024 URINA LYSIS COMPL ETE/I RIS W/RFX glucose NORMAL mg/dL normal - Not Available [facility] (Lab) [address] [place], [address], 09/21/2024 19:46:22 09/22/19 25 09/21/2024 URINA LYSIS COMPL ETE/I RIS W/RFX ketones NEGATI VE mg/dL negati ve- Not Available [facility] (Lab) [address] [place], [address], 09/21/2024 19:46:22 09/22/19 25 09/21/2024 URINA LYSIS COMPL ETE/I RIS W/RFX urobilinogen NORMAL mg/dL normal - Not Available [facility] (Lab) [address] [place], [address], 09/21/2024 19:46:22 09/22/19 25 09/21/2024 URINA LYSIS COMPL ETE/I RIS W/RFX bilirubin NEGATI VE mg/dL negati ve- Not Available [facility] (Lab) [address] [place], [address], 09/21/2024 19:46:22 09/22/19 25 09/21/2024 URINA LYSIS COMPL ETE/I RIS W/RFX blood NEGATI VE mg/dL negati ve- Not Available [facility] (Lab) [address] [place], [address], 09/21/2024 19:46:22 09/22/19 25 09/21/2024 URINA LYSIS COMPL ETE/I RIS W/RFX white blood cells 0-8 /i??h pfi?? 0-8 Not Available [facility] (Lab) [address] [place], [address], 09/21/2024 19:46:22 09/22/19 25 09/21/2024 URINA LYSIS COMPL ETE/I RIS W/RFX red blood cells 0-4 /i??h pfi?? 0-4 Not Available [facility] (Lab) [address] [place], [address], 09/21/2024 19:46:22 09/22/19 25 09/21/2024 URINA LYSIS COMPL ETE/I RIS W/RFX bacteria OCCASI ONAL none seen- abnormal Not Available [facility] (Lab) [address] [place], [address], 09/21/2024 19:46:22 09/22/19 25 09/21/2024 URINA LYSIS COMPL ETE/I RIS W/RFX mucous OCCASI ONAL /i??l pfi?? none seen- abnormal Not Available [facility] (Lab) [address] [place], [address], 09/21/2024 19:46:22 09/22/19 25 09/21/2024 URINA LYSIS COMPL ETE/I RIS W/RFX squamous epithelial FEW /i??l pfi?? abnormal Not Available [facility] (Lab) [address] [place], [address], 09/21/2024 19:46:22 09/22/19 25 09/21/2024 URINA LYSIS COMPL ETE/I RIS W/RFX tranistional epithelial FEW /i??l pfi?? abnormal Not Available [facility] (Lab) [address] [place], [address], 09/21/2024 19:46:22 09/22/19 25 09/21/2024 CBC/C OMPLE TE BLD COUNT W/DIF F white blood cells 5.4 x10'3 /uL 4.2-10 .8 Not Available [facility] (Lab) [address] [place], [address], 09/21/2024 19:51:16 09/22/19 25 09/21/2024 CBC/C OMPLE TE BLD COUNT W/DIF F red blood cells 4.23 x10'6 /uL 3.80-5 .20 Not Available [facility] (Lab) [address] [place], [address], 09/21/2024 19:51:16 09/22/19 25 09/21/2024 CBC/C OMPLE TE BLD COUNT W/DIF F hemoglobin 13.7 g/dL 12.0-1 5.6 Not Available [facility] (Lab) [address] [place], [address], 09/21/2024 19:51:16 09/22/19 25 09/21/2024 CBC/C OMPLE TE BLD COUNT W/DIF F hematocrit 40.3 % 35.7-4 5.7 Not Available [facility] (Lab) [address] [place], [address], 09/21/2024 19:51:16 09/22/19 25 09/21/2024 CBC/C OMPLE TE BLD COUNT W/DIF F mean red cell volume 95.3 fL 82.0-9 9.0 Not Available [facility] (Lab) [address] [place], [address], 09/21/2024 19:51:16 09/22/19 25 09/21/2024 CBC/C OMPLE TE BLD COUNT W/DIF F mean red cell hemoglobin 32.4 pg 27.0-3 3.0 Not Available [facility] (Lab) [address] [place], [address], 09/21/2024 19:51:16 09/22/19 25 09/21/2024 CBC/C OMPLE TE BLD COUNT W/DIF F mean RBC HGB concentratio n 34.0 g/dL 31.0-3 6.0 Not Available [facility] (Lab) [address] [place], [address], 09/21/2024 19:51:16 09/22/1909/21/2024 CBC/C OMPLE TE BLD COUNT W/DIF F red cell distribution width 14.3 % 11.8-1 5.5 Not Available [facility] ([facility]) [address] [place], [address], 09/21/2024 19:51:16 09/22/19 25 09/21/2024 CBC/C OMPLE TE BLD COUNT W/DIF F platelets 289 x10'3 /uL 150-40 0 Not Available [facility] (Lab) [address] [place], [address], 09/21/2024 19:51:16 09/22/19 25 09/21/2024 CBC/C OMPLE TE BLD COUNT W/DIF F mean platelet volume 11.5 fL 9.0-12 .4 Not Available [facility] ([facility]) [address] [place], [address], 09/21/2024 19:51:16 09/22/19 25 09/21/2024 CBC/C OMPLE TE BLD COUNT W/DIF F neutrophils 53.1 % 39.0-7 2.0 Not Available [facility] ([facility]) [address] [place], [address], 09/21/2024 19:51:16 09/22/19 25 09/21/2024 CBC/C OMPLE TE BLD COUNT W/DIF F lymphocytes 32.1 % 16.0-4 7.0 Not Available [facility] ([facility]) [address] [place], [address], 09/21/2024 19:51:16 09/22/19 25 09/21/2024 CBC/C OMPLE TE BLD COUNT W/DIF F monocytes 7.2 % 5.0-12 .0 Not Available [facility] ([facility]) [address] [place], [address], 09/21/2024 19:51:16 09/22/1909/21/2024 CBC/C OMPLE TE BLD COUNT W/DIF F eosinophils 5.7 % 1.0-7. 0 Not Available [facility] ([facility]) [address] [place], [address], 09/21/2024 19:51:16 09/22/19 25 09/21/2024 CBC/C OMPLE TE BLD COUNT W/DIF F basophils 1.5 % 0.0-2. 0 Not Available [facility] ([facility]) [address] [place], [address], 09/21/2024 19:51:16 09/22/19 25 09/21/2024 CBC/C OMPLE TE BLD COUNT W/DIF F immature granulocytes 0.4 % 0.00-0 .50 Not Available [facility] ([facility]) [address] [place], [address], 09/21/2024 19:51:16 09/22/1909/21/2024 CBC/C OMPLE TE BLD COUNT W/DIF F neutrophils, absolute count 2.88 x10'3 /uL 1.5-8. 0 Not Available [facility] (Lab) [address] [place], [address], 09/21/2024 19:51:16 09/22/1909/21/2024 CBC/C OMPLE TE BLD COUNT W/DIF F lymphocytes, absolute count 1.74 x10'3 /uL 1.07-3 .43 Not Available [facility] ([facility]) [address] [place], [address], 09/21/2024 19:51:16 09/22/1909/21/2024 CBC/C OMPLE TE BLD COUNT W/DIF F monocytes, absolute count 0.39 x10'3 /uL 0.29-0 .99 Not Available [facility] (Lab) [address] [place], [address], 09/21/2024 19:51:16 09/22/1909/21/2024 CBC/C OMPLE TE BLD COUNT W/DIF F eosinophils, absolute count 0.31 x10'3 /uL 0.02-0 .53 Not Available [facility] (Lab) [address] [place], [address], 09/21/2024 19:51:16 09/22/19 25 09/21/2024 CBC/C OMPLE TE BLD COUNT W/DIF F basophils, absolute count 0.08 x10'3 /uL 0.01-0 .08 Not Available [facility] ([facility]) [address] [place], [address], 09/21/2024 19:51:16 09/22/19 25 09/21/2024 CBC/C OMPLE TE BLD COUNT W/DIF F immature granulocytes ,absolute 0.02 x10'3 /uL 0.00-0 .05 Not Available [facility] (Lab) [address] [place], [address], 09/21/2024 19:51:16 09/22/19 25 09/21/2024 CBC/C OMPLE TE BLD COUNT W/DIF F nucleated red blood cells 0.0 % -0 Not Available [facility] (Lab) [address] [place], [address], 09/21/2024 19:51:16 09/22/19 25 09/21/2024 CBC/C OMPLE TE BLD COUNT W/DIF F NRBC# 0.00 x10'3 /uL Not Available [facility] (Lab) [address] [place], [address], 09/21/2024 19:51:16 09/22/19 25 09/21/2024 URIC ACID SERUM uric acid 5.1 mg/dL 2.5-6. 2 Not Available [facility] (Lab) [address] [place], [address], 09/21/2024 20:01:35 09/22/19 25 09/21/2024 COMPR EHENS POOL METAB OLIC PANEL sodium 136 mmol/ L 137-14 5 low Not Available [facility] (Lab) [address] [place], [address], 09/21/2024 20:01:41 09/22/19 25 09/21/2024 COMPR EHENS POOL METAB OLIC PANEL potassium 5.0 mmol/ L 3.5-5. 1 Not Available [facility] (Lab) [address] [place], [address], 09/21/2024 20:01:41 09/22/19 25 09/21/2024 COMPR EHENS POOL METAB OLIC PANEL chloride 100 mmol/ L 98-107 Not Available [facility] ([facility]) [address] [place], [address], 09/21/2024 20:01:41 09/22/19 25 09/21/2024 COMPR EHENS POOL METAB OLIC PANEL carbon dioxide 25 mmol/ L 22-30 Not Available [facility] (Lab) [address] [place], [address], 09/21/2024 20:01:41 09/22/19 25 09/21/2024 COMPR EHENS POOL METAB OLIC PANEL anion gap 16.0 mmol/ L 14-22 Not Available [facility] (Lab) [address] [place], [address], 09/21/2024 20:01:41 09/22/19 25 09/21/2024 COMPR EHENS POOL METAB OLIC PANEL glucose 100 mg/dL 70-99 high Not Available [facility] (Lab) [address] [place], [address], 09/21/2024 20:01:41 09/22/19 25 09/21/2024 COMPR EHENS POOL METAB OLIC PANEL BUN 21 mg/dL 8-19 high Not Available [facility] (Lab) [address] [place], [address], 09/21/2024 20:01:41 09/22/19 25 09/21/2024 COMPR EHENS POOL METAB OLIC PANEL creatinine 0.88 mg/dL 0.66-1 .25 Not Available [facility] (Lab) [address] [place], [address], 09/21/2024 20:01:41 09/22/19 25 09/21/2024 COMPR EHENS POOL METAB OLIC PANEL GFR >60 Refer ence Range : Weed ge GFR Healt hy Adult : >60 [...] calcu lator is avail able on the [facility] websi te: [email or web address] :[email or web address] [email or web address] [email or web address]/pano [email or web address]/gf [email or web address] culat or Not Available [facility] (Lab) [address] [place], [address], 09/21/2024 20:01:41 09/22/19 25 09/21/2024 COMPR EHENS POOL METAB OLIC PANEL alkaline phosphatase 60 U/L 38-126 Not Available [facility] (Lab) [address] [place], [address], 09/21/2024 20:01:41 09/22/19 25 09/21/2024 COMPR EHENS POOL METAB OLIC PANEL alanine aminotransfe rase 41 U/L 0-35 high Not Available [facility] (Lab) [address] [place], [address], 09/21/2024 20:01:41 09/22/19 25 09/21/2024 COMPR EHENS POOL METAB OLIC PANEL aspartate aminotransfe rase 32 U/L 15-37 Not Available [facility] (Lab) [address] [place], [address], 09/21/2024 20:01:41 09/22/19 25 09/21/2024 COMPR EHENS POOL METAB OLIC PANEL bilirubin, total 0.80 mg/dL 0.20-1 .30 Not Available [facility] (Lab) [address] [place], [address], 09/21/2024 20:01:41 09/22/19 25 09/21/2024 COMPR EHENS POOL METAB OLIC PANEL calcium 11.7 mg/dL 8.4-10 .2 high Not Available [facility] (Lab) [address] [place], [address], 09/21/2024 20:01:41 09/22/19 25 09/21/2024 COMPR EHENS POOL METAB OLIC PANEL total protein 7.9 g/dL 6.3-8. 2 Not Available [facility] (Lab) [address] [place], [address], 09/21/2024 20:01:41 09/22/19 25 09/21/2024 COMPR EHENS POOL METAB OLIC PANEL albumin 5.3 g/dL 3.0-4. 4 high Not Available [facility] (Lab) [address] [place], [address], 09/21/2024 20:01:41 09/22/19 25 09/21/2024 COMPR EHENS POOL METAB OLIC PANEL globulin 2.6 g/dL 2.6-4. 2 Not Available [facility] (Lab) [address] [place], [address], 09/21/2024 20:01:41 09/22/19 25 09/21/2024 COMPR EHENS POOL METAB OLIC PANEL A/G ratio 2.0 ratio 1.0-2. 0 Not Available [facility] (Lab) [address] [place], [address], 09/21/2024 20:01:41 09/22/19 25 09/21/2024 LIPID PANEL cholesterol 186 mg/dL 140-19 9 NIH LUPIS NSUS RECOM MENDA TION FOR GENEVIEVE STERO L: ADULT CHILD LOW RISK: <200 <170 BORDE RLINE : <200- 239 ----- HIGH RISK: >240 >200 Not Available [facility] (Lab) [address] [place], [address], 09/21/2024 20:01:46 09/22/19 25 09/21/2024 LIPID PANEL triglyceride s 155 mg/dL 0-150 high NIH LUPIS NSUS REPOR T RECOM MENDA TION FOR TRIGL YCERI BERNA: ADULT CHILD LOW RISK: <150 ----- BODER LINE: 150-1 99 ----- HIGH RISK: >200 ----- Not Available [facility] (Lab) [address] [place], [address], 09/21/2024 20:01:46 09/22/19 25 09/21/2024 LIPID PANEL HDL cholesterol 43 mg/dL 40- Not Available [facility] (Lab) [address] [place], [address], 09/21/2024 20:01:46 09/22/19 25 09/21/2024 LIPID PANEL [...] WILL NOT BE REPOR GRACIELA. Not Available [facility] (Lab) [address] [place], [address], 09/21/2024 20:01:46 09/22/19 25 09/21/2024 PARAT HY.HO RM(PT H)INT ACT-W /O CA intact parathyroid hormone 111.1 pg/mL 24.0-7 8.0 high Not Available [facility] (Lab) [address] [place], [address], 09/21/2024 20:18:23 09/22/19 25 09/21/2024 VITAM IN D 25-HY DROXY [id number] 48.2 NG/mL 30-100 Vitam in D Statu s: Defic ient: <20 ng/mL Insuf ficie nt: 20-29 ng/mL Suffi cient : 30-10 0 ng/mL Not Available [facility] (Lab) [address] [place], [address], 09/21/2024 20:18:38 09/22/19 25 09/21/2024 HEMOG LOBIN A1C HA1C 5.6 % 4.0-6. 0 Diabe octavio Scree kayden Crite anikt: <5.7% Consi stent with absen ce of diabe octavio 5.7-6 .4% Consi stent with incre ased risk for diabe octavio (pred iabet es) >OR=6 .5% Consi stent with diabe octavio REFER ENCE: Diabe octavio Care 2016, 39(Hernández ppl.1 ):s13 -s22 Not Available [facility] (Lab) [address] [place], [address], 09/21/2024 20:26:48 09/22/19 25 09/21/2024 TSH W/REF FARHEEN FT4 TSH with reflex free T4 1.650 uIU/m L 0.465- 4.680 Not Available [facility] (Lab) [address] [place], [address], 09/21/2024 20:36:14 09/22/19 25 09/21/2024 urina lysis , dipst ick Leukocytes (reference range: negative afshan/ l) Small Not Available [address], [address], 09/21/2024 14:23:19 09/22/19 25 09/21/2024 urina lysis , dipst ick Nitrite (reference rage: negative mg/dl) negati ve Not Available [address], [address], 09/21/2024 14:23:19 09/22/19 25 09/21/2024 urina lysis , dipst ick Urobilinogen (reference range: 0.2-1 mg/dl) 0.2 Not Available [address], [address], 09/21/2024 14:23:19 09/22/19 25 09/21/2024 urina lysis , dipst ick Protein (reference range: negative mg/dl) Negati ve Not Available [address], [address], 09/21/2024 14:23:19 09/22/19 25 09/21/2024 urina lysis , dipst ick pH (reference range: 5-7) 7.0 Not Available [address], [address], 09/21/2024 14:23:19 09/22/19 25 09/21/2024 urina lysis , dipst ick Blood (reference range: negative Cornelio/ l) Negati ve Not Available [address], [address], 09/21/2024 14:23:19 09/22/19 25 09/21/2024 urina lysis , dipst ick Specific [place] (reference range: 1.005-1.030) 1.010 Not Available [address], [address], 09/21/2024 14:23:19 09/22/19 25 09/21/2024 urina lysis , dipst ick Ketone (reference range: negative mg/dl) Negati ve Not Available [address], [address], 09/21/2024 14:23:19 09/22/19 25 09/21/2024 urina lysis , dipst ick Bilirubin (reference range: negative mg/dl) Negati ve Not Available [address], [address], 09/21/2024 14:23:19 09/22/19 25 09/21/2024 urina lysis , dipst ick Glucose (reference range: negative mg/dl) Negati ve Not Available [address], [address], 09/21/2024 14:23:19 09/22/19 25 09/21/2024 urina lysis , dipst ick Appearance Clear Not Available [address], [address], 09/21/2024 14:23:19 09/22/19 25 09/21/2024 urina lysis , dipst ick Color Pale Yellow Not Available [address], [address], 09/21/2024 14:23:19 06/15/19 25 06/15/2024 XR, chest , 2 view No observ ation record ed. [email or web address] [facility] [address], [place], [address], 07/21/2024 12:00:30 09/17/19 25 09/16/2024 NM, kidne y scan, w/ vascu lar flow + funct ion, singl e, w/o pharm a inter venti on No observ ation record ed. [address], [place], [address], 09/21/2024 14:09:22 10/26/19 25 10/25/2024 XR, kidne y + urete r + bladd er No observ ation record ed. [address], [place], [address], 10/25/2024 14:26:58 11/03/19 25 11/02/2024 imagi ng/di agnos tic resul t No observ ation record ed. [address], [place], [address], 11/02/2024 12:41:14 Result Notes None recorded. Problems Name Problem SNOMED Code Status Onset Date Resolution Date Notes Provider Name and Address Organization Details Recorded Time Acute sinusitis 71572679 Active 2020 Not Available [facility] 3 07:31:19 Anthony hematuria 759052100 Completed Not Available [facility] 3 07:31:20 Sciatica 56835979 Active 2021 Not Available [facility] 3 07:31:20 Mixed anxiety and depressiv e disorder 908589689 Active 2021 Not Available [facility] 3 07:31:20 Gastroeso phageal reflux disease 534416918 Active 2019 Not Available [facility] 3 07:31:20 Osteoarth ritis of knee 510832222 Active 2016 Not Available [facility] 3 07:31:20 Lumbar spondylos is 782626523 Active 2021 Not Available [facility] 3 07:31:20 Headache 54899568 Completed Daly Pinto NP [address] [facility], [facility] [address], [place], [address] , [facility] [employer] [facility] [employer] 3 12:00:58 History of thyroid disorder 677368439 Active 2020 Not Available [facility] 3 07:31:20 Low back pain 216962408 Active 2021 Not Available [facility] 3 07:31:20 Retinal disorder 50973219 Active Not Available [facility] 3 07:31:20 Hypertrig lyceridem ia 566249724 Active 2020 Not Available [facility] 3 07:31:21 Depressiv e disorder 01718989 Active Not Available [facility] 3 07:31:21 Seasonal allergic rhinitis 674763256 Active 2019 Not Available [facility] 3 07:31:21 Sinusitis 25521991 Active 2017 Not Available [facility] 3 07:31:21 Hypertens pool disorder 24260463 Active 2019 Not Available [facility] 3 07:31:21 Hematoma 658408405 Completed Not Available [facility] 3 07:31:21 Memory impairmen t 739900300 Active 2020 Not Available [facility] 3 07:31:21 Furuncle 959604917 Completed Michael Faye MD [address] [facility], [facility] [address], [place], [address] , [employer] [facility] [employer] 4 10:18:43 Environme ntal allergy 989300446 Active 2016 Not Available [facility] 3 07:31:21 Herniatio n of lumbar intervert ebral disc with sciatica 29908992524 4105 Active 2021 Not Available [facility] 3 07:31:22 Foot pain 94770470 Completed Not Available [facility] 3 07:31:22 Bilateral tinnitus 21653420420 02 Active 2019 Not Available [facility] 3 07:31:22 Anxiety 14352681 Active Not Available [facility] 3 07:31:22 Upper respirato ry infection 00654674 Completed Not Available [facility] 3 07:31:22 Hyperlipi demia 59581227 Active 2016 Not Available [facility] 3 07:31:22 Migraine without aura 50815548 Active 2016 Not Available [facility] 3 07:31:22 Osteoporo sis 61855909 Active 2021 Not Available [facility] 3 07:31:23 Urinary tract infectiou s disease 04033633 Completed Michael Faye MD [address] [place] [address], [place], [address] , [facility] [employer] [facility] 4 16:13:03 Acid reflux 873232118 Active 2018 Not Available [facility] 3 07:31:23 Liver enzymes level above reference range 004586988 Active 2020 Not Available [facility] 3 07:31:23 Varicose veins of lower extremity 44536036 Active 2016 Not Available [facility] 3 07:31:23 Sleep apnea 36972320 Active Not Available [facility] 3 07:31:24 Urgent desire to urinate 07759426 Completed Not Available [facility] 3 07:31:24 Postmenop ausal state 79068269 Active 2021 Not Available [facility] 3 07:31:24 Hyperglyc emia 78224390 Active 2016 Not Available [facility] 3 07:31:24 Gout 33861487 Active 2021 Not Available [facility] 3 07:31:24 Skin lesion 64593527 Completed Not Available [facility] 3 07:31:25 Kidney stone 80552001 Completed Not Available [facility] 3 07:31:25 Obese 380833461 Active 2022 Daly Pinto NP [address], [place], [address] , [place] [facility] 3 11:56:43 Headache 24731764 Active 2022 Daly Pinto NP [address], [address], [place], [address] , [place] [facility] 3 12:00:58 Lumbar radiculop athy 713271681 Active 2022 Michael Faye MD [address], [address], [place], [address] , [place] [facility] 3 17:01:57 Obesity 963935848 Active 2022 Michael Faye MD [address], [address], [place], [address] , [place] [facility] 3 17:02:46 Lipoma of lower leg 911339064 Active 2022 Michael Faye MD [address], [address], [place], [address] , [place] [facility] 3 17:43:42 Idiopathi c hypercalc emia 226894591 Active 2022 Michael Faye MD [address], [address], [place], [address] , [place] [facility] 3 14:31:47 Hyperpara thyroidis m 34085795 Active 2022 Michael Faye MD [address], [address], [place], [address] , [place] [facility] 5 10:26:42 Blood in urine 44667304 Active 2022 Daly Pinto NP [address], [address], [place], [address] , [place] [facility] 3 10:44:02 Abnormal uterine bleeding 07790546943 100 Active 2022 Daly Pinto NP [address], [address], [place], [address] , [place] [facility] 3 10:44:49 Acute urinary tract infection 778695806 Active 2022 Daly Pinto NP [address], [address], [place], [address] , [place] [facility] 3 08:51:54 Dysuria 50005827 Active 2022 Michael Faye MD [address], [address], [place], [address] , [place] [facility] 5 14:23:11 Urinary tract infectiou s disease 25623469 Active 2023 Michael Faye MD [address], [address], [place], [address] , [place] [facility] 4 16:13:03 Bilateral earache 767836260 Active 2023 Michael Faye MD [address], [place], [address] , [place] [facility] 4 16:33:22 Candidal vulvovagi nitis 88751282 Active 2023 Michael Faye MD [address], [place], [address] , [place] [facility] 4 16:37:42 Gouty arthropat hy 391730096 Active 2023 Michael Faye MD [address], [place], [address] , [place] [facility] 4 09:56:46 Polyarthr opathy 76243915 Active 2023 Michael Faye MD [address], [address], [place], [address] , [place] [facility] 4 09:58:59 Obstructi ve sleep apnea syndrome 93997923 Active 2023 Michael Faye MD [address], [place], [address] , [employer] [place] [facility] [place] [employer] 4 10:07:57 Pain of right knee joint 38624118088 4100 Active 2023 LILLY Beltran [address], [place], [address] , [employer] [place] [facility] [employer] 4 14:54:22 Hypercal emia 91573107 Active 2023 LILLY Beltran [address], [place], [address] , [employer] [place] [facility] [employer] 4 14:58:37 Cough 53109359 Active 2024 Michael Faye MD [address], [place], [address] , [employer] [place] [employer] 5 14:35:26 Bronchiti s 86405334 Active 2024 Michael Faye MD [address], [place], [address] , [employer] 5 14:57:50 Muscle strain 30565693 Active 2024 Michael Faye MD [address], [place], [address] , [employer] 5 15:14:02 Problem Notes None recorded. Procedures Surgical History Date Name Laterality Status Provider Name and Address Organization Details Recorded Time 10/27/19 24 Date of Last Pap Smear completed Michael Faye MD [address], [place], [address], [employer] [place] [employer] 09/21/2024 14:27:51 09/29/19 24 Medicare Wellness CPT Code, subsequent completed Reji Ashton [place] [employer] 09/29/2023 14:15:26 08/29/19 24 Most Recent Mammogram completed Michael Faye MD [address], [place], [address], [place] [employer] 09/21/2024 14:27:51 06/18/19 24 Transitional_Care_ Management completed Reji Ashton [employer] 06/18/2023 16:22:09 04/03/20 22 Most Recent Bone Density completed Not Available [facility] 07/23/2022 07:26:53 05/25/19 18 Knee Replacement completed Not Available [facility] 07/23/2022 07:26:55 05/25/19 02 repair of ovary completed Not Available [facility] 07/23/2022 07:26:55 05/25/18 92 Cholecystectomy completed Not Available [facility] 07/23/2022 07:26:55 Imaging Results None recorded. Procedure Notes None recorded. Medical Equipment None Reported. Allergies Allergen ID Allergen Name Allergen Category Reaction Reaction Severity Criticality Documentation Date Start Date Code Code System Note Provider Name and Address Organization Details Recorded Time 11606 Substance with sulfonami de structure and antibacte rial mechanism of action (substanc e) medicatio n nausea Not available Not available 07/23/2022 21093 8003 SNOMED Not Available [facility] 3 07:36:13 41807 Zithromax medicatio n other Not available Not available 03/31/202419637 4 RxNorm cause s pt to be super jitte ry Michael Faye MD [address] [facility], [facility] [address], [place], [address], [employer] 5 14:58:29 30032 Macrobid medicatio n anaphylax is severe high 06/16/20242024 99826 1 RxNorm state s her throa t close d up with in the hour of takin g it, had to go to ER Yara scanlon [employer] [facility] [employer] 5 09:32:31 Medications Name Sig Start Date [...] Not Available Not Available No t Available oxybutyni n chloride 5 mg tablet TAKE 1 TABLET BY MOUTH TWICE DAILY NEEDED FOR BLADDER SPASMS active Not Available Not Available No t [...] Not Available Not Available Not Available Afluria 1319-5954 (PF) 45 mcg (15 mcg x 3)/0.5 [...] Updated DateTime 5 160.02 cm 41.5 kg/m2 328352. 61 g 97.3 [degF] 74 /min 20 /min 97 % 97 % 160 mm[Hg] 90 mm[Hg] Daly Monte, RN [facility] [employer] 5 10:40:55 Date Recorded Oxygen saturation Oxygen saturation in Arterial blood by Pulse oximetry Systolic blood pressure Diastolic blood pressure Provider Name and Address Organization Details Last Updated DateTime 07/21/2024 96 % 96 % 160 mm[Hg] 84 mm[Hg] Michael Faye MD [address] [facility], [facility] [address], [place], [address], [employer] 5 12:20:50 Date Recorded Body height Body mass index (BMI) Body weight Body temperature Heart rate Respiratory rate Provider Name and Address Organization Details Last Updated DateTime 5 160.02 cm 41.7 kg/m2 589848. 91 g 97.5 [degF] 74 /min 20 /min Daly Monte RN [facility] [employer] [facility] 5 11:46:53 Date Recorded Body height Body mass index (BMI) Body weight Body temperature Oxygen saturation Oxygen saturation in Arterial blood by Pulse oximetry Heart rate Systolic blood pressure Diastolic blood pressure Provider Name and Address Organization Details Last Updated DateTime 5 160.02 cm 41.4 kg/m2 288816. 82 g 98.2 [degF] 96 % 96 % 72 /min 120 mm[Hg] 70 mm[Hg] Nely Xiao RN [facility] [employer] [facility] 5 14:53:14 Date Recorded Body height Body mass index (BMI) Body weight Body temperature Oxygen saturation Oxygen saturation in Arterial blood by Pulse oximetry Heart rate Systolic blood pressure Diastolic blood pressure Provider Name and Address Organization Details Last Updated DateTime 5 160.02 cm 40.6 kg/m2 625886. 05 g 98.1 [degF] 97 % 97 % 81 /min 142 mm[Hg] 70 mm[Hg] Nely Xiao RN [facility] [employer] [facility] 5 14:07:59 Date Recorded Body height Body mass index (BMI) Body weight Body temperature Oxygen saturation Oxygen saturation in Arterial blood by Pulse oximetry Heart rate Systolic blood pressure Diastolic blood pressure Provider Name and Address Organization Details Last Updated DateTime 5 160.02 cm 41 kg/m2 607520. 89 g 97.7 [degF] 98 % 98 % 76 /min 140 mm[Hg] 64 mm[Hg] Nely Xiao RN [facility] [employer] [facility] 5 10:19:26 Social History Question Answer Notes LastModified by Organizat ion Details LastModified Time Tobacco Smoking Status Never Smoker Elida scanlon, [facility] [employer] [facility] 06/18/2023 16:10:12 Do You Have An Advance Directive? Yes [id number] Information not available 07/23/2022 Are You Blind Or Do You Have Difficulty Seeing? No Information not available 06/18/2023 Is Blood Transfusion Acceptable In An Emergency? Yes Information not available 06/18/2023 What Is Your Level Of Caffeine Consumption? Moderate [id number] Information not available 07/23/2022 How Much Tobacco Do You Chew? None [id number] Information not available 07/23/2022 What Is Your [...] Type Of Diet Are You Following? GLUTENFREE Information not available 12/30/2023 Which Illicit Or Recreational Drugs Have You Used? None Information not available 06/18/2023 What Is The Highest Grade Or Level Of School You Have Completed Or The Highest Degree You Have Received? [id number] Information not available 06/18/2023 How Many Days [...] not available 06/18/2023 Where Do You Live? [facility] Information not available 06/18/2023 Advance Directive- Providers [...] Do You Have A Medical Power Of Call Or Contact Centre Team Leader? No Information not available 06/18/2023 What Was [...] is your level of alcohol consumption? None [id number] Information not available 07/23/2022 Are you currently [...] 06/18/2023 What is your exercise level? Moderate [id number] Information not available 12/30/2023 Mental Status Question Answer Note LastModified by Organizat ion Details LastModified Time Do you feel stressed (tense, restless, nervous, or anxious, or unable to sleep at night)? [id number] Information not available 11/09/2023 Do you have difficulty concentrating, remembering or making decisions? No Information no t available 06/18/2023 Family History Relationship Description Onset Age of this Age Resolved Age Notes LastModified by Organization Details LastModified Time Father No current problems or disability [id number] Not available 07/23/2022 07:26:58 Mother No current problems or disability [id number] Not available 07/23/2022 07:26:58 Medical History Condition Response ALLERGIES/HAYFEVER Y BACK INJECTIONS Y HIGH CHOLESTEROL / HYPERLIPIDEMIA Y BACK / NECK PROBLEMS Y HEADACHES/MIGRAINES Y HYPERTENSION Y ANXIETY DISORDER Y OBESITY Y GERD/NAUSEA Y URINARY/BLADDER/KIDNEY PROBLEMS Y Gynecological History Statement/Question Response Abnormal Pap [...] virus, quadrivalent, preservative 8 completed Not Available [facility] 07/23/2022 07:36:04 Influenza, split virus, trivalent, preservative 5 completed Not Available [facility] 07/23/2022 07:36:04 zoster live 5 completed Not Available [facility] 07/23/2022 07:36:04 Influenza, split virus, trivalent, PF 4 completed Not Available [facility] 07/23/2022 07:36:04 Pneumococcal conjugate PCV 13 0 completed Not Available [facility] 07/23/2022 07:36:05 Influenza, high-dose, quadrivalent, PF 0 completed Not Available [facility] 07/23/2022 07:36:05 Tdap 8 completed Not Available [facility] 07/23/2022 07:36:05 Influenza, split virus, quadrivalent, PF 6 completed Not Available [facility] 07/23/2022 07:36:05 Past Encounters Encounter ID Performer Location Encounter Start Date Encounter Closed Date Diagnosis/Indication Diagnosis SNOMED-CT Code Diagnosis ICD10 Code Diagnosis Note [id number] Daly Pinto NP [address] [address] 07/24/2020 00:00:00 07/24/2020 09:44:41 [id number] Michael Faye MD [address] [address] 10/31/2020 00:00:00 10/31/2020 09:16:25 [id number] Michael Faye MD [address] [address] 11/20/2020 00:00:00 11/20/2020 12:21:01 [id number] Michael Faye MD [address] [address] 02/13/2021 00:00:00 02/13/2021 14:33:22 [id number] Michael Faye MD [facility] [address] [place] [address] 02/26/2021 00:00:00 02/26/2021 14:32:03 [id number] Michael Faye MD [facility] [address] [place] [address] 07/24/2021 00:00:00 07/24/2021 14:56:44 [id number] Michael Faye MD [facility] [address] [place] [address] 10/09/2021 00:00:00 10/09/2021 14:38:30 [id number] Daly Pinto NP [facility] [address] [place] [address] 02/26/2022 00:00:00 02/26/2022 10:42:26 [id number] Michael Faye MD [facility] [address] [place] [address] 03/18/2022 00:00:00 03/19/2022 15:55:39 [id number] Michael Faye MD [facility] [address] [place] [address] 04/29/2022 00:00:00 04/29/2022 18:09:05 [id number] Michael Faye MD [facility] [address] [place] [address] 05/06/2022 00:00:00 05/06/2022 15:25:01 [id number] Daly Pinto NP [facility] [address] [place] [address] 08/06/2022 11:17:09 08/06/2022 12:50:33 Hyperlipidemia 76093333 E78.5 Low fat diet. Statins cause pain. 02/27/22 last lab result. Essential hypertension 39863834 I10 amlodipine 5 mg po daily.ASA 81 mg po dailyLosar puckett 100 mg po daily.tria mterene 37.5 mg-hctz25 mg po daily. (this can increase gout flare, so stopped and started on losartan only) Osteoporosis 94132815 M8 1.0 alendronat e 70 mg po weekly pt stopped. Wants to follow Dr. Sims holistic provider and be on vitamins.M eloxicam 15 mg po daily.Tram adol 50 mg po tid prn- pt trying to wean off. Acid reflux 720770113 K2 1.9 famotidine 20 mg po daily. Sleep apnea 58975255 G47 .30 Gout 79710496 M10.9 allopurino l 100 mg po daily. Seasonal a llergic rhinitis 323099939 J30.2 cetirizine 10 mg po daily.Flon ase prn Mixed anxi ety and depressive disorder 405418807 F41.8 Pt weaned herself off the lexapro. Hydroxyzin e prn use. Sciatica 07258018 M54.32 cyclobenza shalini 10 mg po tid prn.Gabape ntin 300 mg po nightly. Obese 910057157 E66.9 Diet and exercise. Wegovy and phentermin e discussed. Phentermin e 15 mg po daily. Headache 06780276 R51.9 [id number] Michael Faye MD [address] [address] 08/07/2022 16:38:36 08/07/2022 17:44:28 Cramp in lower limb 567140825 R25.2 B/L Lumbar radiculopathy 128 072819 M54.16 Gout 55792096 M10.9 Obesity 820002632 E66.9 Lipoma of lower leg 1890 62475 D17.24 Lt [id number] Daly Pinto NP [address] [address] 09/09/2022 09:34:15 09/09/2022 10:58:16 Blood in urine 70217467 R31.9 Sending urine for culture. Blood with wiping- no periods for 15 years. Abnormal u terine bleeding 6786101688 9100 N93.9 referring to obstetrician/gynecologist- pt to find provider that accepts insurance. Obese 657435380 E66.9 Diet and exercise. Phentermin e 15 mg po daily. Down 2 lbs. Would like to continue. [id number] Daly Pinto NP [address] [address] 10/09/2022 09:13:04 10/09/2022 10:05:37 Obese 013495472 E66.9 Diet and exercise. Phentermin e 15 mg po daily. Down 2 lbs. Would like to continue.I LPMP last fill 09/09/22.Ph entermine 37.5 mg po daily. Essential hypertension 92771936 I10 amlodipine 5 mg po daily.ASA 81 mg po dailyLosar puckett 100 mg po daily.tria mterene 37.5 mg-hctz25 mg po daily. (this can increase gout flare, so stopped and started on losartan only) Gastroesop hageal reflux disease 467181689 K21.9 [id number] Daly Pinto NP [address] [address] 10/24/2022 10:41:24 10/24/2022 11:44:26 Dysuria 77598230 R30.0 R30.9 Patient was started on antibiotic and advised to increase water intake.Cul ture sent.Urina lysis in office +nitrites [id number] Daly Pinto NP [address] [address] 01/21/2023 13:58:46 01/21/2023 18:03:00 Gout 38162368 M10.9 allopurino l 200 mg po daily. Seeing Dr. Becerra. Sleep apnea 75145652 G47 .30 CPAP Acid reflux 797468115 K2 1.9 famotidine 20 mg po daily. Hyperparathyroidism 6699 9008 E21.3 referred to endo, but patient cancelled. Osteoporosis 20450667 M8 1.0 alendronat e 70 mg po weekly pt stopped. Wants to follow Dr. Sims holistic provider and be on vitamins.M eloxicam 15 mg po daily.Tram adol 50 mg po tid prn- pt trying to wean off. Not able to yet- trying to lose weight. Essential hypertension 86086083 I10 amlodipine 5 mg po daily.ASA 81 mg po dailyLosar puckett 100 mg po daily.tria mterene 37.5 mg-hctz25 mg po daily. (this can increase gout flare, so pt monitoring ) Migraine without aura 56 869252 G43.009 Hyperlipidemia 58106233 E78.5 Low fat diet. Statins cause pain. 02/27/22 last lab result. Anxiety 21694467 F41.9 Obese 261589506 E66.9 Diet and exercise. Lumbar spondylosis 89403 0009 M47.896 Osteoarthr itis of knee 941358168 M17.9 [id number] Michael Faye MD [address] [address] 06/18/2023 16:09:07 06/18/2023 17:00:32 Seen in emergency clinic 053828153 Z76.89 Recent ED records reviewed. Urinary tr act infectious disease 01073545 N39.0 Transition of care 58375 84031 105 Z75.8 Sinusitis 30382271 J32.9 Bilateral earache 425411 003 H92.03 Candidal vulvovaginitis 59919106 B37.31 Essential hypertension 02945982 I10 Gout 28303896 M10.9 Obesity 044673389 E66.9 [id number] Michael Faye MD [address] [address] 09/02/2023 09:43:47 09/02/2023 10:22:40 Hypertensive disorder 03946503 I10 Gouty arthropathy 129936 008 M10.09 Gynecologi c examination 70802509 Z01.419 Depressive disorder 3548 9007 F32.A Polyarthropathy 38766862 M13.0 Obesity 013022603 E66.9 Osteoporosis 10467577 M8 1.0 Screening mammography 24 967941 Z12.31 Screening for malignant neoplasm of colon 132414751 Z12.11 Urinary tr act infectious disease 79876920 N39.0 Obstructiv e sleep apnea syndrome 62282368 G47.33 [id number] Michael Faye MD [address] [address] 09/29/2023 14:13:02 09/29/2023 15:00:22 Hypertensive disorder 04530293 I10 Gouty arthropathy 347092 008 M10.09 Depressive disorder 3548 9007 F32.A Polyarthropathy 51646018 M13.0 Obesity 991941067 E66.9 Osteoporosis 49239453 M8 1.0 Obstructiv e sleep apnea syndrome 26403785 G47.33 Adult [facility] th examination 953968924 Z00.00 Screening for disorder 482418514 Z13.9 Hyperlipidemia 30031813 E78.5 Liver enzy mes level above reference range 927476335 R74.01 Idiopathic hypercalcemia 489560591 E83.52 Essential hypertension 21311856 I10 [id number] Michael Faye MD [address] [address] 11/09/2023 14:20:26 11/09/2023 15:06:36 Pain of right knee joint 8872767161 89458 M25.561 Hypercalcemia 46818649 E 83.52 [id number] Michael Faye MD [address] [address] 12/22/2023 09:14:13 12/22/2023 09:30:39 [id number] Michael Faye MD [address] [address] 12/30/2023 09:42:46 12/30/2023 10:33:19 Hypertensive disorder 36956208 I10 Gouty arthropathy 132761 008 M10.09 Depressive disorder 3548 9007 F32.A Polyarthropathy 33826752 M13.0 Obesity 730494019 E66.9 Osteoporosis 26278199 M8 1.0 Obstructiv e sleep apnea syndrome 83497737 G47.33 Hyperlipidemia 96419125 E78.5 Liver enzy mes level above reference range 311144700 R74.01 Idiopathic hypercalcemia 787072714 E83.52 Osteoarthr itis of knee 903803431 M17.9 [id number] Michael Faye MD [address] [address] 03/31/2024 09:38:14 03/31/2024 10:14:55 Idiopathic hypercalcemia 960146745 E83.52 Gouty arthropathy 401886 008 M10.09 Hypertensive disorder 38 652633 I10 Depressive disorder 3548 9007 F32.A Polyarthropathy 99416698 M13.0 Obesity 677266517 E66.9 Osteoporosis 76047128 M8 1.0 Obstructiv e sleep apnea syndrome 02417830 G47.33 Hyperlipidemia 07560127 E78.5 Liver enzy mes level above reference range 936715956 R74.01 Osteoarthr itis of knee 299500203 M17.9 [id number] Michael Faye MD [address] [address] 06/15/2024 10:16:28 06/15/2024 10:56:03 Acute urinary tract infection 463209150 N39.0 hx of sepsis related to UTI [id number] Michael Faye MD [address] [address] 07/21/2024 11:36:24 07/21/2024 12:34:55 Gouty arthropathy 925175540 M10.09 Idiopathic hypercalcemia 919038992 E83.52 Hypertensive disorder 38 120152 I10 Depressive disorder 3548 9007 F32.A 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 Obesity 595438649 E66.9 Osteoporosis 93264305 M8 1.0 Obstructiv e sleep apnea syndrome 28832422 G47.33 Hyperlipidemia 98160075 E78.5 Liver enzy mes level above reference range 730927612 R74.01 Osteoarthr itis of knee 028044013 M17.9 Blood in urine 27925436 R31.9 Dysuria 21541705 R30.0 [id number] Michael Faye MD [address] [address] 08/17/2024 14:29:59 08/17/2024 15:04:55 Cough 95859862 R05.9 Bronchitis 99005741 J40 Muscle strain 19309891 T 14.8XXA [id number] Michael Faye MD [place] 200[address] 1 09/21/2024 13:53:04 09/21/2024 14:42:12 Gouty arthropathy 992787977 M10.09 Idiopathic hypercalcemia 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 E83.52 Hypertensive disorder 38 055248 I10 Depressive disorder 3548 9007 F32.A Polyarthropathy 88376260 M13.0 Obesity 111619763 E66.9 Osteoporosis 51675765 M8 1.0 Obstructiv e sleep apnea syndrome 50435698 G47.33 Hyperlipidemia 81990058 E78.5 Liver enzy mes level above reference range 269426776 R74.01 Osteoarthr itis of knee 232401482 M17.9 Dysuria 87888795 R30.0 [id number] Michael Faye MD [address] [address] 10/05/2024 10:11:13 10/05/2024 10:36:25 Hypertensive disorder 93869593 I10 Gouty arthropathy 414065 008 M10.09 Idiopathic hypercalcemia 045622180 E83.52 Depressive disorder 3548 9007 F32.A Polyarthropathy 03820528 M13.0 Obesity 719675250 E66.9 Osteoporosis 72740727 M8 1.0 Obstructiv e sleep apnea syndrome 95273560 G47.33 Hyperlipidemia 69094713 E78.5 Liver enzy mes level above reference range 745828626 R74.01 resolved Osteoarthr itis of knee 537740345 M17.9 Hyperparathyroidism 6699 9008 E21.3 Health Concerns Section Related Observation LastModified by Organization Detai ls LastModified Time None Recorded Concern Status LastModified by Organization Details LastModified Time None Recorded Advance Directives Directive Y: Payers Encounter Date Sequence Insurance Name Policy Number Policy Dunham Covered Member ID Dunham Member ID Guarantor Name 06/15/2024 1 [facility] (MEDICARE REPLACEMENT/A DVANTAGE - HMO) [id number] Rody Monson [id number] Rody Monson 07/21/2024 1 [facility] (MEDICARE REPLACEMENT/A DVANTAGE - HMO) [id number] Rody Monson [id number] Rody Monson 08/17/2024 1 [facility] (MEDICARE REPLACEMENT/A DVANTAGE - HMO) [id number] Rody Monson [id number] Rody Monson 09/21/2024 1 [facility] (MEDICARE REPLACEMENT/A DVANTAGE - HMO) [id number] Rody Monson [id number] Rody Monson 10/05/2024 1 [facility] (MEDICARE REPLACEMENT/A DVANTAGE - HMO) [id number] Rody Monson [id number] Rody Monson Notes Date Note Type Note Provider Name and Address Organization Details Recorded Time 06/15/2024 text/html Rody Monson is a 68 year old female patient here today for urinary concerns She states she gets UTIs frequently She noticed blood in her urine last night, pelvic pain, pressure, urgency LILLY Beltran [address] [facility], [place], [address], [facility] [place] [employer] 06/15/2024 10:51:32 07/21/2024 text/html FUV + ACV: [...] Faye MD [address], [address], [place], [address], [facility] [place] [employer] [facility] 07/21/2024 14:54:26 08/17/2024 text/html ACV: C/o cough, congestion, drainage for last 3 weeks, on/off. Pt has been doing otc meds and its still not getting better. Due to cough, she is c/o middle back area pain too. Denies any recent fall/trauma. Michael Faye MD [address] [facility], [facility] [address], [place], [address], [facility] [employer] [facility] [employer] 08/17/2024 15:14:28 09/21/2024 text/html Pt is here for h er annual exam. Doing overall better. Denies any problem with meds. Denies any new concern. Still has lot of urinary issues and she called yesterday to be started on Amoxicillin for it. Pt is f/u with Uro at [place] for her recurrent UTIs and kidney stones [...] supplements by them. Michael Faye MD [address] [facility], [facility] [address], [place], [address], [facility] [employer] [facility] [employer] [facility] 09/21/2024 14:29:00 10/05/2024 text/html Pt is here for f /u on her annual labs. Doing overall better. Denies any problem with meds. Denies any new concern. Pt is f/u with Uro at [place] for her recurrent UTIs and kidney stones [...] supplements by them. Michael Faye MD [address] [facility], [facility] [address], [place], [address], [place] [facility] 10/05/2024 10:32:33 OBGyn Episode No OBEpisode recorded.
--- OUTSIDE RECORDS SUMMARY | 2024-11-02 12:02 | XMS_ITS | Continuity of Care Document ---
Author Organization [facility] Address [address] [place] [address] Phone Care Team Providers Care Steel Box Toe Inserter Name Role Phone Tomas Clayton Unavailable Unavailable Procedures Procedure Date Eye Exam Established Pt Ophthalmoscopy, Subsequent Office Consultation Ophthalmoscopy Advance Directives Directive Yes / No Effective Date File Name No Information Encounters Encounter Description Practice Location Reason(s) For Visit Diagnoses Date Provider Providers Copied on Encounter [facility], [address] [place] [address] [address], [place], [place], [address], tel:[phone] SEC [facility] No Information 9 [address] [place], [place], [facility], . [phone] Referring Provider: Tomas Berg, [address] [place], [place], [facility]. tel:[phone] Office Consultation [facility], [address] [place] [address] [address], [place], [place], [address], tel:[phone] SEC [facility] No Information [address] [place], [place], [facility], [place]. tel:[phone] Referring Provider: Marcio Lagunas, [address], [place], [place], [facility]. tel:[phone] Family History Family Member Type Diagnosis Age At Onset No Information Payers Payer name Insurance type Covered libertarian ID Authoriza tion(s) No Information Social History [...]
--- OUTSIDE RECORDS SUMMARY | 2024-11-02 12:03 | XMS_ITS | Clinical Summary ---
Author Organization [facility] Address [address] [place] [address] Phone Care Team Providers Care Lead Radiation Therapist Name Role Phone Daly Pinto COVER ASSEMBLER, MEDICARE NURSE Primary Care Pro vider Medications Aspirin 81 [...] Comments Blood Pressure 130/86 04/08/2019 8:56 AM MANAGER MERCHANDISING Pulse 70 04/08/2019 8:56 AM MANAGER MERCHANDISING Temperature - - Respiratory Rate - - Oxygen Saturation 98% 04/08/2019 8:56 AM MANAGER MERCHANDISING Inhaled Oxygen Concentration - - Weight 108 kg (238 lb) 04/08/2019 8:56 AM MANAGER MERCHANDISING Height 160 cm (5' 3) 04/08/2019 8:56 AM MANAGER MERCHANDISING Body Mass Index 42.16 04/08/2019 8:56 AM MANAGER MERCHANDISING Plan of Treatment Health Maintenance Due Date Last Done Comments Hepatitis C Virus (HCV) Screening 1955 Cologuard 11/11/1999 Immunochemical Fecal Occult Blood 11/11/1999 Pneumococcal Immunization (50+ years) (1 of 1 - PCV) 2004 Zoster Immunization (2 of 3) 04/19/2015 02/22/2015 SARS-COV-2 Immunization (1 - season) 2024 Influenza Immunization (Season Ended) 2025 02/12/2018, 04/28/2016, 02/22/2015, Additional history exists Colonoscopy 05/12/2026 05/12/2019 Colorectal Cancer Screening 05/12/2026 Respiratory Syncytial Virus (RSV) Immunization (Adult) (1 - 1-dose 75+ series) 2029 DTaP/Tdap/Td Immunization Discontinued 09/22/2017 TdaP Immunization Completed 09/22/2017 Hepatitis B Immunization Aged Out No longer eligible based on patient's age to complete this topic Human Papillomavirus (HPV) Immunization Aged Out No longer eligible based [...] Maintenance Results * COLONOSCOPY (05/12/2019) us Marcio Mosley Klrani DO PROCEDURE/MINOR SURGICAL ORDERA BLES Final Result from Last 3 Months or Most Recently Relevant to Health Maintenance Insurance [facility] Care Teams Lead Radiation Therapist Relationship Specialty Start Date End Date Daly Pinto APRN, MEDICARE NURSE [address] [place] [address] PCP - General Certified Nurse Practitioner 11/02/18
--- OUTSIDE RECORDS SUMMARY | 2024-11-02 12:03 | XMS_ITS | Clinical Summary ---
Author Organization [facility] Address [address] [place] [address] Phone Care Team Providers Care Open Hearth Melter Name Role Phone Daly Pinto NP Primary Care Provider [phone] Allergies Active Allergy Reactions Criticality Noted Date [...] exists Insurance [employer] MEDICARE Care Teams Open Hearth Melter Relationship Specialty Start Date End Date Daly Pinto NP [address] [address] PCP - General Family Medicine 10/19/18
== END 2024-11-02 10:23 | disposition home or self-care (01) ==
PROVIDERS: PCP Family Medicine; Visit Provider Urology
DX: N20.0 Calculus of kidney (principal); Z96.0 Presence of urogenital implants
CPT/HCPCS: 74018

== ENCOUNTER 2024-12-01 11:28 | Outpatient (CLI) | payer MEDICARE, SELFPAY ==
--- NOTE | ~2024-12-01 | XR_ITS ---
EXAM/PROCEDURE: XR abdomen/kub 1V - 12/01/2024 11:40 CDT HISTORY: 69 years old Female with Kidney stone COMPARISON: None available. TECHNIQUE: AP view(s) of the abdomen. FINDINGS: The bowel gas pattern is normal. There is no evidence for obstruction. No free intraperitoneal air is identified on this supine radiograph. Cholecystectomy clips are seen. The visualized soft tissue shadows are unremarkable. Degenerative changes are seen. Visualized portions of lung bases are clear. IMPRESSION: No acute process. Reviewed, dictated and finalized at location A. IMPRESSION: No acute process.
--- OUTSIDE RECORDS SUMMARY | 2024-12-01 11:33 | XMS_ITS | Clinical Summary ---
Author Organization [facility] Address [address] [place] [address] Care Team Providers Care Food And Beverage Outlets Manager Name Role Phone Fabiola Melo MD Unavailable [phone] Brittany Elias MD Primary Care Provider Source Comments [facility],non-owned Affiliates and Associated Physician Practices is amultiple site organization consisting of ambulatory clinics and hospital sitesin [place], [place], [place] and [place]. This disclosure is being madepursuant to the Care Everywhere program and may not contain all information available regarding this patient. Last updated 18.[facility] Allergies Active Allergy Reactions Criticality Noted Date [...] fluticasone propionate (FLONASE) 50 MCG/ACT nasal spray [place] 2 sprays into each nostril nightly as [...] on file Legal Sex Female 12:16 PM [employer] Gender Identity Not on file Sexual Orientation [...] this topic Medical Devices Implanted Type Area Rock Singer Device Identifier Shelf Expiration Date Model / Serial / Lot Cmnt Bone Cblt 40gm Hvisc Strl Implanted:Qty: 1 on 02/11/2018 by Toño Johnston MD at [facility] Left: Knee [employer] 02/21/2019 600-15-000 / / [id number] Cmpnt Ptlr 28mm 1 Pg Wire Ascnt Arcm Kn Implanted:Qty: 1 on 02/11/2018 by Toño Johnston MD at [facility] Left: Knee [employer] 01/29/2023 [id number] / / [id number] Tray Tib 71mm Kn Cocr I Beam Implanted:Qty: 1 on 02/11/2018 by Toño Johnston MD at [facility] Left: Knee [employer] 12/02/2027 [id number] / / [id number] Cmpnt Fem Kn Lt Cr Cmnt Prm Vngrd Intlk Implanted:Qty: 1 on 02/11/2018 by Toño Johnston MD at [facility] Left: Knee [employer] 10/21/2027 [id number] / / [id number] Brng [id number] Vngrd Arcm Kn Ant Stab Implanted:Qty: 1 on 02/11/2018 by Toño Johnston MD at [facility] Left: Knee [employer] 12/22/2022 [id number] / / [id number] Procedures Procedure Name Priority Date/Time Associated Diagnosis [...] LAB - CHEMISTRY ORDERABLES Fi nal Result [facility] [address] [place] [address] from Last 3 Months or Most Recently Relevant to Health Maintenance Insurance [facility]THEM Advance Directives * Full Code (Latest Code Status on File) Date Activated Date Inactivated Comments 02/11/2018 11:11 AM 02/14/2018 1:10 PM Care Teams Food And Beverage Outlets Manager Relationship Specialty Start Date End Date Brittany Elias MD [address] [place] [phone] PCP - General 05/26/19 [place] [address] [address] Orthopedic Surgery 06/06/14
--- OUTSIDE RECORDS SUMMARY | 2024-12-01 11:33 | XMS_ITS | Data Portability ---
Author Organization [place] - [employer] [facility] Address [address] [place] [address] Assessment Encounter Date Assessment Date Assessment LastModified by Organization Details LastModified Time 08/06/2024 08/06/2024 Ddx: UTI, STI, Pyelonephritis A: Patient s symptoms and history consistent with urinary tract infection. P: Provided counseling/treatme nt recommendations as noted below: Medication prescribed: See Rx section If any medications were discussed (either prescription or [id number]), please review any potential side effects before [...] Cipro 250 mg tablet 025 08/07/19 25 [facility][id number], [address] [place], [address], 18:41:41 Patient TargetsNo targets recorded. Patient Instructions Encounter Date Encounter Id Patient Instructions Last Modified By Organization Details Last Modified Time 08/06/2024 [id number] Urinary Tract Infection (UTI) in Women: Care [...] Name and Address Organization Details Recorded Time 962881 Macrobid medicatio n Not available Not available Not available 08/06/2024 [id number] 1 RxNorm Not Available Included [facility] 17:37:03 [id number] Substance with sulfonami de structure and antibacte rial mechanism of action (substanc e) medicatio n Not available Not available Not available 08/06/2024 81983 8003 SNOMED Not Available Included [facility] 17:37:03 Medications Name Sig Start Date [...] SNOMED-CT Code Diagnosis ICD10 Code Diagnosis Note [id number] LILLY Agarwal [facility] [place] [address] 08/06/2024 17:41:34 08/06/2024 17:47:23 Patient not examined 989295286 Z53.9 [id number] LILLY Agarwal [facility] [place] [address] 08/06/2024 17:50:32 08/07/2024 15:27:58 Acute urinary tract infection 608910161 N39.0 Health Concerns Section Related Observation LastModified by Organization Detai ls LastModified Time None Recorded Concern Status LastModified by Organization Details LastModified Time None Recorded Advance Directives Directive None Recorded Payers Insurance Date Sequence Insurance Name Policy Number Policy Dunham Covered Member ID Dunham Member ID Guarantor Name 08/06/2024 [employer] [id number] Rody Monson [id number] Rody Monson 08/06/2024 3 *SELF PAY* [id number] Rody Monson [id number] Rody Monson 08/06/2024 1 *SELF PAY* Laith Mnoson 08/06/2024 1 [facility] [id number] Rody Monson [id number] Rody Monson 08/06/[address] [facility] [id number] Rody Monson [id number] Rody Monson Notes Date Note Type Note [...] History of kidney stones: LILLY Mccoy [address] [facility] [address], [place], [address], [place] [facility] 08/07/2024 13:03:28 OBGyn Episode No OBEpisode recorded.
--- OUTSIDE RECORDS SUMMARY | 2024-12-01 11:34 | XMS_ITS | Continuity of Care Document ---
Author Organization [facility] Address [address] [facility] [address] [facility] [address] [place] [address] Phone Care Team Providers Care Dynamics Ax Solution Architect Name Role Phone Tomas Clayton Unavailable Unavailable Procedures Procedure Date Eye Exam Established Pt Ophthalmoscopy, Subsequent Office Consultation Ophthalmoscopy Advance Directives Directive Yes / No Effective Date File Name No Information Encounters Encounter Description Practice Location Reason(s) For Visit Diagnoses Date Provider Providers Copied on Encounter [facility], [address] [place] [address] [address], [place], [place], [address], tel:[phone] SEC [facility] No Information 9 [address] [place], [place], [facility], . [phone] Referring Provider: Tomas Berg, [address] [place], [place], [facility]. tel:[phone] Office Consultation [facility], [address] [place] [address] [address], [place], [place], [address], tel:[phone] SEC [facility] No Information [address] [place], [place], [facility], [place]. tel:[phone] Referring Provider: Marcio Lagunas, [address], [place], [place], [facility]. tel:[phone] Family History Family Member Type Diagnosis Age [...]
--- OUTSIDE RECORDS SUMMARY | 2024-12-01 11:34 | XMS_ITS | Clinical Summary ---
Author Organization [facility] Address [address] [place] [id number] Phone Care Team Providers Care Planting Machine Operator Name Role Phone Daly Pinto NP Primary Care Provider [phone] Allergies Active Allergy Reactions Criticality Noted Date [...] / Low and Medium Risk (1 of 2 - PCV) 2004 Influenza Vaccine (#1) 2025 9, 02/12/2018, 04/28/2016, Additional history exists Insurance [employer] MED[employer]ARE Care Teams Planting Machine Operator Relationship Specialty Start Date End Date Daly Pinto NP [address] [address] PCP - General Family Medicine 10/19/18
--- OUTSIDE RECORDS SUMMARY | 2024-12-01 11:34 | XMS_ITS | Clinical Summary ---
Author Organization [facility] Address [address] [place] [address] Phone Care Team Providers Care Tool Lapper Hand Name Role Phone Daly Pinto VESSEL WELDER, MU[employer] BOSS Primary Care Pro vider Medications Aspirin 81 [...] Comments Blood Pressure 130/86 04/08/2019 8:56 AM PARKING SUPERVISOR Pulse 70 04/08/2019 8:56 AM PARKING SUPERVISOR Temperature - - Respiratory Rate - - Oxygen Saturation 98% 04/08/2019 8:56 AM PARKING SUPERVISOR Inhaled Oxygen Concentration - - Weight 108 kg (238 lb) 04/08/2019 8:56 AM PARKING SUPERVISOR Height 160 cm (5' 3) 04/08/2019 8:56 AM PARKING SUPERVISOR Body Mass Index 42.16 04/08/2019 8:56 AM PARKING SUPERVISOR Plan of Treatment Health Maintenance Due Date Last Done Comments Hepatitis C Virus (HCV) Screening 1955 Cologuard 11/11/1999 Immunochemical Fecal Occult Blood 11/11/1999 Pneumococcal Immunization (50+ years) (1 of 1 - PCV) 2004 Zoster Immunization (2 of 3) 04/19/2015 02/22/2015 SARS-COV-2 Immunization (1 - season) 2024 Influenza Immunization (#1) 01/23/202501/24, 04/28/2016, 02/22/2015, Additional history exists Colonoscopy 05/12/2026 [...] Most Recently Relevant to Health Maintenance Insurance [facility] Care Teams Tool Lapper Hand Relationship Specialty Start Date End Date Daly Pinto APRN, [place] [employer]OSS [address] [place] [address] PCP - General Certified Nurse Practitioner 11/02/18
--- OUTSIDE RECORDS SUMMARY | 2024-12-01 11:34 | XMS_ITS | Data Portability ---
Author Organization [place] [facility] [employer], Main Office Address [address] [place] [address] Care Team Providers Care Team Coordinator Name Role Phone FAYE, MICHAEL Primary Care Provider [phone] Assessment Encounter Date Assessment Date Assessment LastModified [...] in 2-3 months. Annual labs in 09/16. [email or web address] Not available 07/21/2024 12:22:19 09/21/2024 09/21/2024 68 [...] per schedule. Cont f/u with Uro at [facility] as per schedule. Cont f/u with Ophtho [...] in 2-3 weeks. Annual labs in 09/17. [email or web address] Not available 09/21/2024 14:27:40 10/05/2024 10/05/2024 69 [...] per schedule. Cont f/u with Uro at [facility] as per schedule. Cont f/u with Ophtho [...] Lipids in 02/16. Annual labs in 09/17. [email or web address] Not available 10/05/2024 10:31:44 Plan of Treatment Reminders Order Date Submit Date Provider Last Modified By Organization Details Last Modified Time Details Appointments Follow Up 15 2024 08:45A Odin Faye MD Not available Not available Not available Lab lipid panel, serum 2024 025 [facility] (Lab), [address] [place], [address], 10/05/2024 10:27:38 PTH (parathyr oid hormone), intact + calcium, serum or plasma 2024 025 [email or web address] [facility] (Lab), [address] [place], [address], 09/28/2024 10:09:27 urinalysi s, dipstick 2024 025 ЕЛЕНА [facility], [address] [place] [address], [address], 09/21/2024 14:45:15 CBC w/ auto diff [address] (Lab), [address] [place], [address], 09/21/2024 14:49:44 CMP, serum or plasma 2024 025 [facility] (Lab), [address] [place], [address], 09/21/2024 20:01:42 urinalysi s complete, reflex culture [address] (Lab), [address] [place], [address], 09/21/2024 14:48:30 uric acid, serum or plasma 2024 025 [facility] (Lab), [address] [place], [address], 09/21/2024 20:01:35 lipid panel, serum 2024 025 [facility] (Lab), [address] [place], [address], 09/21/2024 20:01:46 TSH, serum or plasma 2024 025 [facility] (Lab), [address] [place], [address], 09/21/2024 20:36:14 glycohemo globin, total, blood 2024 025 [facility] (Lab), [address] [place], [address], 09/21/2024 20:26:48 vitamin D, 25-hydrox y, total, serum 2024 025 [facility] (Lab), [address] [place], [address], 09/28/2024 10:09:27 urinalysi s, dipstick 2024 025 [facility], [address] [place] [address], [address], 07/21/2024 12:23:41 culture, urine 2024 025 [facility] (Lab), [address] [place], [address], 07/22/2024 07:44:27 urinalysi s, dipstick 2024 025 [facility], [address] [place] [address], [address], 06/15/2024 10:58:49 culture, urine + sensitivi ty 2024 025 [facility] (Lab), [address] [place], [address], 06/22/2024 08:03:50 Referral endocrino logy referral - [place]. Please call patient to schedule an appointme nt. Thank you. 2024 025 EULALIA Mcbride MD, [address], [place], [address], 10/07/2024 15:17:31 urologist referral - Recurrent UTIs ++ Please call patient to schedule an appointme nt with Ap Greco. Thank you. 2024 025 [email or web address] [address], [place], [address], 10/21/2024 09:33:25 Procedures None recorded. Surgeries None recorded. Imaging None recorded. Medication Orders alendrona te 70 mg tablet 2024 [facility], [address], [place], [place], [address], 10/05/2024 10:27:49 amlodipin e 5 mg tablet 2024 [facility], [address], [place], [place], [address], 10/05/2024 10:27:50 losartan 100 mg tablet 2024 [facility] [address], [address], [place], [place], [address], 10/05/2024 10:27:46 triamtere ne 37.5 mg-hydroc hlorothia zide 25 mg capsule 2024 [facility] [address], [address], [place], [address], 10/05/2024 10:27:50 rosuvasta tin 10 mg tablet 2024 025 [facility] [address], [address], [place], [address], 10/05/2024 10:27:47 allopurin ol 300 mg tablet 2024 025 [facility] [address], [address], [place], [address], 10/05/2024 10:27:47 meloxicam 7.5 mg tablet 2024 025 [facility] [address], [address], [place], [address], 10/05/2024 10:27:47 escitalop marty 10 mg tablet 2024 025 [facility] [address], [address], [place], [address], 10/05/2024 10:27:49 alendrona te 70 mg tablet 2024 [facility] [address], [address], [place], [address], 09/21/2024 14:15:45 amlodipin e 5 mg tablet 2024 [facility] [address], [address], [place], [address], 09/21/2024 14:15:41 losartan 100 mg tablet 2024 [facility] [address], [address], [place], [address], 09/21/2024 14:15:43 triamtere ne 37.5 mg-hydroc hlorothia zide 25 mg capsule 2024 [facility] [address], [address], [place], [address], 09/21/2024 14:15:42 allopurin ol 300 mg tablet 2024 [facility] [address], [address], [place], [address], 09/21/2024 14:15:41 rosuvasta tin 5 mg tablet [address] [facility], [address], [place], [address], 10/05/2024 10:30:40 meloxicam 7.5 mg tablet [address] [facility], [address], [place], [address], 09/21/2024 14:17:29 escitalop marty 10 mg tablet 2024 [facility], [address], [place], [address], 09/21/2024 14:15:42 azithromy poli 250 mg tablet 2024 [facility], [address], [place], [address], 08/17/2024 15:00:30 prednison e 10 mg tablet 2024 025 [facility], [address], [place], [address], 08/17/2024 15:00:29 albuterol sulfate HFA 90 mcg/actua tion aerosol inhaler [address] [facility], [address], [place], [address], 08/17/2024 15:01:31 benzonata te 200 mg capsule 2024 025 [facility], [address], [place], [address], 08/17/2024 15:00:30 cephalexi n 500 mg capsule [address] [facility], [address], [place], [address], 08/17/2024 14:35:51 alendrona te 70 mg tablet 2024 025 [facility], [address], [place], [address], 07/21/2024 12:05:25 losartan 100 mg tablet 2024 025 [facility] [address], [address], [place], [address], 07/21/2024 12:05:30 triamtere ne 37.5 mg-hydroc hlorothia zide 25 mg capsule 2024 [facility], [address], [place], [place], [address], 07/21/2024 12:05:23 amlodipin e 10 mg tablet 2024 [facility], [address], [place], [place], [address], 07/21/2024 12:08:14 allopurin ol 300 mg tablet [address] [facility], [address], [place], [place], [address], 07/21/2024 12:11:32 rosuvasta tin 5 mg tablet [address] [place] [address] Pharmacy 4878, [address], [place], [place], [address], 10/05/2024 10:30:40 meloxicam 7.5 mg tablet 2024 [facility], [address], [place], [address], 07/21/2024 12:05:27 escitalop marty 10 mg tablet [address] [place] [address] Pharmacy 4878, [address], [place], [address], 07/21/2024 12:05:26 Macrobid 100 mg capsule [address] [place] [address] Pharmacy 4878, [address], [place], [place], [address], 07/21/2024 11:39:16 Patient TargetsNo targets recorded. Patient Instructions Encounter Date Encounter Id Patient Instructions Last Modified By Organization Details Last Modified Time 07/21/2024 [id number] starting a weigh t loss plan: care instructions [email or web address] Not available 07/21/2024 12:05:10 09/21/2024 [id number] starting a weigh t loss plan: care instructions [email or web address] Not available 09/21/2024 14:15:29 10/05/2024 [id number] starting a weigh t loss plan: care instructions [email or web address] Not available 10/05/2024 10:27:38 Reason for Referral Urologist Referral for Blood in urine Recurrent UTIs ++ Please call patient to schedule an appointment with Ap Greco. Thank you. Referring Physician: Michael Faye [facility], Encounter Date: 07/21/2024 Endocrinology Referral for H yperparathyroidism [place], [place]. Please call patient to schedule an appointment. Thank you. Referring Physician: Michael Faye [facility], Encounter Date: 10/05/2024 Results Created Date Observation Date Name Description Value Unit Range Abnormal Flag Note LastModifiedBy Organization Detail LastModifiedTime 06/15/19 25 06/15/2024 urina lysis , dipst ick Leukocytes (reference range: negative afshan/ l) Modera te Not Available [address], [address], 06/15/2024 10:46:33 06/15/19 25 06/15/2024 urina lysis , dipst ick Nitrite (reference rage: negative mg/dl) negati ve Not Available [address], [address], 06/15/2024 10:46:33 06/15/19 25 06/15/2024 urina lysis , dipst ick Urobilinogen (reference range: 0.2-1 mg/dl) 0.2 Not Available [address], [address], 06/15/2024 10:46:33 06/15/19 25 06/15/2024 urina lysis , dipst ick Protein (reference range: negative mg/dl) Trace Not Available [address], [address], 06/15/2024 10:46:33 06/15/19 25 06/15/2024 urina lysis , dipst ick pH (reference range: 5-7) 7.0 Not Available [address], [address], 06/15/2024 10:46:33 06/15/19 25 06/15/2024 urina lysis , dipst ick Blood (reference range: negative Cornelio/ l) Negati ve Not Available [address], [address], 06/15/2024 10:46:33 06/15/19 25 06/15/2024 urina lysis , dipst ick Specific [place] (reference range: 1.005-1.030) 1.010 Not Available [address], [address], 06/15/2024 10:46:33 06/15/19 25 06/15/2024 urina lysis , dipst ick Ketone (reference range: negative mg/dl) Negati ve Not Available [address], [address], 06/15/2024 10:46:33 06/15/19 25 06/15/2024 urina lysis , dipst ick Bilirubin (reference range: negative mg/dl) Negati ve Not Available [address], [address], 06/15/2024 10:46:33 06/15/19 25 06/15/2024 urina lysis , dipst ick Glucose (reference range: negative mg/dl) Negati ve Not Available [address], [address], 06/15/2024 10:46:33 06/15/19 25 06/15/2024 urina lysis , dipst ick Appearance Clear Not Available [address], [address], 06/15/2024 10:46:33 06/15/1906/15/2024 urina lysis , dipst ick Color Yellow Not Available [address], [address], 06/15/2024 10:46:33 07/21/19 25 07/21/2024 CULTU RE URINE urc ===== ===== ===== ===== ===== ===== ===== ===== ===== ===== ===== ===== ===== ===== ===== ===== ===== ===== ===== ===== ===== ===== ===== ===== Speci men NO.: [id number] Exam Statu s: Final Proce dure: [...] Genta micin [address] [place] [id number] Oxida se React ion N Extra Sensi [...] furan toin <=32 S S Not Available [facility] (Lab) [address] [place], [address], 07/23/2024 07:54:30 07/21/19 25 07/21/2024 urina lysis , dipst ick Leukocytes (reference range: negative afshan/ l) Trace Not Available [address], [address], 07/21/2024 12:04:50 07/21/19 25 07/21/2024 urina lysis , dipst ick Nitrite (reference rage: negative mg/dl) positi ve Not Available [address], [address], 07/21/2024 12:04:50 07/21/19 25 07/21/2024 urina lysis , dipst ick Urobilinogen (reference range: 0.2-1 mg/dl) 0.2 Not Available [address], [address], 07/21/2024 12:04:50 07/21/19 25 07/21/2024 urina lysis , dipst ick Protein (reference range: negative mg/dl) Negati ve Not Available [address], [address], 07/21/2024 12:04:50 07/21/19 25 07/21/2024 urina lysis , dipst ick pH (reference range: 5-7) 7.0 Not Available [address], [address], 07/21/2024 12:04:50 07/21/19 25 07/21/2024 urina lysis , dipst ick Blood (reference range: negative Cornelio/ l) Negati ve Not Available [address], [address], 07/21/2024 12:04:50 07/21/19 25 07/21/2024 urina lysis , dipst ick Specific [place] (reference range: 1.005-1.030) 1.010 Not Available [address], [address], 07/21/2024 12:04:50 07/21/19 25 07/21/2024 urina lysis , dipst ick Ketone (reference range: negative mg/dl) Negati ve Not Available [address], [address], 07/21/2024 12:04:50 07/21/19 25 07/21/2024 urina lysis , dipst ick Bilirubin (reference range: negative mg/dl) Negati ve Not Available [address], [address], 07/21/2024 12:04:50 07/21/19 25 07/21/2024 urina lysis , dipst ick Glucose (reference range: negative mg/dl) Negati ve Not Available [address], [address], 07/21/2024 12:04:50 07/21/19 25 07/21/2024 urina lysis , dipst ick Appearance Clear Not Available [address], [address], 07/21/2024 12:04:50 07/21/19 25 07/21/2024 urina lysis , dipst ick Color Pale Yellow Not Available [address], [address], 07/21/2024 12:04:50 09/22/19 25 09/21/2024 URINA LYSIS COMPL ETE/I RIS W/RFX color COLORL ESS Not Available [facility] (Lab) [address] [place], [address], 09/21/2024 19:46:22 09/22/19 25 09/21/2024 URINA LYSIS COMPL ETE/I RIS W/RFX appear CLEAR Not Available [facility] (Lab) [address] [place], [address], 09/21/2024 19:46:22 09/22/19 25 09/21/2024 URINA LYSIS COMPL ETE/I RIS W/RFX specific gravity 1.006 1.001- 1.030 Not Available [facility] (Lab) [address] [place], [address], 09/21/2024 19:46:22 09/22/19 25 09/21/2024 URINA LYSIS COMPL ETE/I RIS W/RFX pH 7.0 pH_un its 5.0-9. 0 Not Available [facility] (Lab) [address] [place], [address], 09/21/2024 19:46:22 09/22/19 25 09/21/2024 URINA LYSIS COMPL ETE/I RIS W/RFX leukocytes 75 afshan/u L negati ve- abnormal Not Available [facility] (Lab) [address] [place], [address], 09/21/2024 19:46:22 09/22/19 25 09/21/2024 URINA LYSIS COMPL ETE/I RIS W/RFX nitrite NEGATI VE negati ve- Not Available [facility] (Lab) [address] [place], [address], 09/21/2024 19:46:22 09/22/19 25 09/21/2024 URINA LYSIS COMPL ETE/I RIS W/RFX protein NEGATI VE mg/dL negati ve- Not Available [facility] (Lab) [address] [place], [address], 09/21/2024 19:46:22 09/22/19 25 09/21/2024 URINA LYSIS COMPL ETE/I RIS W/RFX glucose NORMAL mg/dL normal - Not Available [facility] (Lab) [address] [place], [address], 09/21/2024 19:46:22 09/22/19 25 09/21/2024 URINA LYSIS COMPL ETE/I RIS W/RFX ketones NEGATI VE mg/dL negati ve- Not Available [facility] (Lab) [address] [place], [address], 09/21/2024 19:46:22 09/22/19 25 09/21/2024 URINA LYSIS COMPL ETE/I RIS W/RFX urobilinogen NORMAL mg/dL normal - Not Available [facility] (Lab) [address] [place], [address], 09/21/2024 19:46:22 09/22/19 25 09/21/2024 URINA LYSIS COMPL ETE/I RIS W/RFX bilirubin NEGATI VE mg/dL negati ve- Not Available [facility] (Lab) [address] [place], [address], 09/21/2024 19:46:22 09/22/19 25 09/21/2024 URINA LYSIS COMPL ETE/I RIS W/RFX blood NEGATI VE mg/dL negati ve- Not Available [facility] (Lab) [address] [place], [address], 09/21/2024 19:46:22 09/22/19 25 09/21/2024 URINA LYSIS COMPL ETE/I RIS W/RFX white blood cells 0-8 /i??h pfi?? 0-8 Not Available [facility] (Lab) [address] [place], [address], 09/21/2024 19:46:22 09/22/19 25 09/21/2024 URINA LYSIS COMPL ETE/I RIS W/RFX red blood cells 0-4 /i??h pfi?? 0-4 Not Available [facility] (Lab) [address] [place], [address], 09/21/2024 19:46:22 09/22/19 25 09/21/2024 URINA LYSIS COMPL ETE/I RIS W/RFX bacteria OCCASI ONAL none seen- abnormal Not Available [facility] (Lab) [address] [place], [address], 09/21/2024 19:46:22 09/22/19 25 09/21/2024 URINA LYSIS COMPL ETE/I RIS W/RFX mucous OCCASI ONAL /i??l pfi?? none seen- abnormal Not Available [facility] (Lab) [address] [place], [address], 09/21/2024 19:46:22 09/22/19 25 09/21/2024 URINA LYSIS COMPL ETE/I RIS W/RFX squamous epithelial FEW /i??l pfi?? abnormal Not Available [facility] (Lab) [address] [place], [address], 09/21/2024 19:46:22 09/22/19 25 09/21/2024 URINA LYSIS COMPL ETE/I RIS W/RFX tranistional epithelial FEW /i??l pfi?? abnormal Not Available [facility] ([facility]) [address] [facility] [place], [address], 09/21/2024 19:46:22 09/22/19 25 09/21/2024 CBC/C OMPLE TE BLD COUNT W/DIF F white blood cells 5.4 x10'3 /uL 4.2-10 .8 Not Available [facility] (Lab) [address] [place], [address], 09/21/2024 19:51:16 09/22/19 25 09/21/2024 CBC/C OMPLE TE BLD COUNT W/DIF F red blood cells 4.23 x10'6 /uL 3.80-5 .20 Not Available [facility] (Lab) [address] [place], [address], 09/21/2024 19:51:16 09/22/19 25 09/21/2024 CBC/C OMPLE TE BLD COUNT W/DIF F hemoglobin 13.7 g/dL 12.0-1 5.6 Not Available [facility] (Lab) [address] [place], [address], 09/21/2024 19:51:16 09/22/19 25 09/21/2024 CBC/C OMPLE TE BLD COUNT W/DIF F hematocrit 40.3 % 35.7-4 5.7 Not Available [facility] (Lab) [address] [place], [address], 09/21/2024 19:51:16 09/22/19 25 09/21/2024 CBC/C OMPLE TE BLD COUNT W/DIF F mean red cell volume 95.3 fL 82.0-9 9.0 Not Available [facility] (Lab) [address] [place], [address], 09/21/2024 19:51:16 09/22/19 25 09/21/2024 CBC/C OMPLE TE BLD COUNT W/DIF F mean red cell hemoglobin 32.4 pg 27.0-3 3.0 Not Available [facility] (Lab) [address] [place], [address], 09/21/2024 19:51:16 09/22/19 25 09/21/2024 CBC/C OMPLE TE BLD COUNT W/DIF F mean RBC HGB concentratio n 34.0 g/dL 31.0-3 6.0 Not Available [facility] (Lab) [address] [place], [address], 09/21/2024 19:51:16 09/22/19 25 09/21/2024 CBC/C OMPLE TE BLD COUNT W/DIF F red cell distribution width 14.3 % 11.8-1 5.5 Not Available [facility] (Lab) [address] [place], [address], 09/21/2024 19:51:16 09/22/19 25 09/21/2024 CBC/C OMPLE TE BLD COUNT W/DIF F platelets 289 x10'3 /uL 150-40 0 Not Available [facility] (Lab) [address] [place], [address], 09/21/2024 19:51:16 09/22/19 25 09/21/2024 CBC/C OMPLE TE BLD COUNT W/DIF F mean platelet volume 11.5 fL 9.0-12 .4 Not Available [facility] (Lab) [address] [place], [address], 09/21/2024 19:51:16 09/22/19 25 09/21/2024 CBC/C OMPLE TE BLD COUNT W/DIF F neutrophils 53.1 % 39.0-7 2.0 Not Available [facility] (Lab) [address] [place], [address], 09/21/2024 19:51:16 09/22/19 25 09/21/2024 CBC/C OMPLE TE BLD COUNT W/DIF F lymphocytes 32.1 % 16.0-4 7.0 Not Available [facility] (Lab) [address] [place], [address], 09/21/2024 19:51:16 09/22/19 25 09/21/2024 CBC/C OMPLE TE BLD COUNT W/DIF F monocytes 7.2 % 5.0-12 .0 Not Available [facility] (Lab) [address] [place], [address], 09/21/2024 19:51:16 09/22/1909/21/2024 CBC/C OMPLE TE BLD COUNT W/DIF F eosinophils 5.7 % 1.0-7. 0 Not Available [facility] (Lab) [address] [place], [address], 09/21/2024 19:51:16 09/22/19 25 09/21/2024 CBC/C OMPLE TE BLD COUNT W/DIF F basophils 1.5 % 0.0-2. 0 Not Available [facility] (Lab) [address] [place], [address], 09/21/2024 19:51:16 09/22/19 25 09/21/2024 CBC/C OMPLE TE BLD COUNT W/DIF F immature granulocytes 0.4 % 0.00-0 .50 Not Available [facility] (Lab) [address] [place], [address], 09/21/2024 19:51:16 09/22/19 25 09/21/2024 CBC/C OMPLE TE BLD COUNT W/DIF F neutrophils, absolute count 2.88 x10'3 /uL 1.5-8. 0 Not Available [facility] (Lab) [address] [place], [address], 09/21/2024 19:51:16 09/22/19 25 09/21/2024 CBC/C OMPLE TE BLD COUNT W/DIF F lymphocytes, absolute count 1.74 x10'3 /uL 1.07-3 .43 Not Available [facility] (Lab) [address] [place], [address], 09/21/2024 19:51:16 09/22/1909/21/2024 CBC/C OMPLE TE BLD COUNT W/DIF F monocytes, absolute count 0.39 x10'3 /uL 0.29-0 .99 Not Available [facility] (Lab) [address] [place], [address], 09/21/2024 19:51:16 09/22/1909/21/2024 CBC/C OMPLE TE BLD COUNT W/DIF F eosinophils, absolute count 0.31 x10'3 /uL 0.02-0 .53 Not Available [facility] (Lab) [address] [place], [address], 09/21/2024 19:51:16 09/22/19 25 09/21/2024 CBC/C OMPLE TE BLD COUNT W/DIF F basophils, absolute count 0.08 x10'3 /uL 0.01-0 .08 Not Available [facility] (Lab) [address] [place], [address], 09/21/2024 19:51:16 09/22/19 25 09/21/2024 CBC/C OMPLE TE BLD COUNT W/DIF F immature granulocytes ,absolute 0.02 x10'3 /uL 0.00-0 .05 Not Available [facility] (Lab) [address] [place], [address], 09/21/2024 19:51:16 09/22/19 25 09/21/2024 CBC/C OMPLE TE BLD COUNT W/DIF F nucleated red blood cells 0.0 % -0 Not Available [facility] (Lab) [address] [place], [address], 09/21/2024 19:51:16 09/22/19 25 09/21/2024 CBC/C OMPLE TE BLD COUNT W/DIF F NRBC# 0.00 x10'3 /uL Not Available [facility] (Lab) [address] [place], [address], 09/21/2024 19:51:16 09/22/19 25 09/21/2024 URIC ACID SERUM uric acid 5.1 mg/dL 2.5-6. 2 Not Available [facility] (Lab) [address] [place], [address], 09/21/2024 20:01:35 09/22/19 25 09/21/2024 COMPR EHENS POOL METAB OLIC PANEL sodium 136 mmol/ L 137-14 5 low Not Available [facility] (Lab) [address] [place], [address], 09/21/2024 20:01:41 09/22/19 25 09/21/2024 COMPR EHENS POOL METAB OLIC PANEL potassium 5.0 mmol/ L 3.5-5. 1 Not Available [facility] (Lab) [address] [place], [address], 09/21/2024 20:01:41 09/22/19 25 09/21/2024 COMPR EHENS POOL METAB OLIC PANEL chloride 100 mmol/ L 98-107 Not Available [facility] (Lab) [address] [place], [address], 09/21/2024 20:01:41 09/22/19 25 09/21/2024 COMPR EHENS POOL METAB OLIC PANEL carbon dioxide 25 mmol/ L 22-30 Not Available [facility] (Lab) [address] [place], [address], 09/21/2024 20:01:41 09/22/19 25 09/21/2024 COMPR EHENS POOL METAB OLIC PANEL anion gap 16.0 mmol/ L 14-22 Not Available [facility] (Lab) [address] [place], [address], 09/21/2024 20:01:41 09/22/19 25 09/21/2024 COMPR EHENS POOL METAB OLIC PANEL glucose 100 mg/dL 70-99 high Not Available [facility] (Lab) [address] [place], [address], 09/21/2024 20:01:41 09/22/19 25 09/21/2024 COMPR EHENS POOL METAB OLIC PANEL BUN 21 mg/dL 8-19 high Not Available [facility] (Lab) [address] [place], [address], 09/21/2024 20:01:41 09/22/19 25 09/21/2024 COMPR EHENS POOL METAB OLIC PANEL creatinine 0.88 mg/dL 0.66-1 .25 Not Available [facility] (Lab) [address] [place], [address], 09/21/2024 20:01:41 09/22/19 09/21/2024 COMPR EHENS POOL METAB OLIC PANEL GFR >60 Refer ence Range : [place] ge GFR Healt hy Adult : >60 [...] calcu lator is avail able on the [facility] websi te: https ://fuentes [email or web address].kay saunders/[email or web address] [email or web address] s/kdo qi/gf r_cal culat or Not Available [facility] (Lab) [address] [place], [address], 09/21/2024 20:01:41 09/22/19 25 09/21/2024 COMPR EHENS POOL METAB OLIC PANEL alkaline phosphatase 60 U/L 38-126 Not Available [facility] (Lab) [address] [place], [address], 09/21/2024 20:01:41 09/22/19 25 09/21/2024 COMPR EHENS POOL METAB OLIC PANEL alanine aminotransfe rase 41 U/L 0-35 high Not Available [facility] (Lab) [address] [place], [address], 09/21/2024 20:01:41 09/22/19 25 09/21/2024 COMPR EHENS POOL METAB OLIC PANEL aspartate aminotransfe rase 32 U/L 15-37 Not Available [facility] (Lab) [address] [place], [address], 09/21/2024 20:01:41 09/22/19 25 09/21/2024 COMPR EHENS POOL METAB OLIC PANEL bilirubin, total 0.80 mg/dL 0.20-1 .30 Not Available [facility] (Lab) [address] [place], [address], 09/21/2024 20:01:41 09/22/19 25 09/21/2024 COMPR EHENS POOL METAB OLIC PANEL calcium 11.7 mg/dL 8.4-10 .2 high Not Available [facility] (Lab) [address] [place], [address], 09/21/2024 20:01:41 09/22/19 25 09/21/2024 COMPR EHENS POOL METAB OLIC PANEL total protein 7.9 g/dL 6.3-8. 2 Not Available [facility] (Lab) [address] [place], [address], 09/21/2024 20:01:41 09/22/19 25 09/21/2024 COMPR EHENS POOL METAB OLIC PANEL albumin 5.3 g/dL 3.0-4. 4 high Not Available [facility] (Lab) [address] [place], [address], 09/21/2024 20:01:41 09/22/19 25 09/21/2024 COMPR EHENS POOL METAB OLIC PANEL globulin 2.6 g/dL 2.6-4. 2 Not Available [facility] (Lab) [address] [place], [address], 09/21/2024 20:01:41 09/22/19 25 09/21/2024 COMPR EHENS POOL METAB OLIC PANEL A/G ratio 2.0 ratio 1.0-2. 0 Not Available [facility] (Lab) [address] [place], [address], 09/21/2024 20:01:41 09/22/19 25 09/21/2024 LIPID PANEL cholesterol 186 mg/dL 140-19 9 NIH LUPIS NSUS RECOM MENDA TION FOR GENEVIEVE STERO L: ADULT CHILD LOW RISK: <200 <170 BORDE RLINE : <200- 239 ----- HIGH RISK: >240 >200 Not Available [facility] (Lab) [address] [place], [address], 09/21/2024 20:01:46 09/22/19 25 09/21/2024 LIPID PANEL triglyceride s 155 mg/dL 0-150 high NIH LUPIS NSUS REPOR T RECOM MENDA TION FOR TRIGL YCERI BERNA: ADULT CHILD LOW RISK: <150 ----- BODER LINE: 150-1 99 ----- HIGH RISK: >200 ----- Not Available [facility] (Lab) [address] [place] [address], [address], 09/21/2024 20:01:46 09/22/19 25 09/21/2024 LIPID PANEL HDL cholesterol 43 mg/dL 40- Not Available [facility] (Lab) [address] [place] [address], [address], 09/21/2024 20:01:46 09/22/19 25 09/21/2024 LIPID PANEL [...] WILL NOT BE REPOR GRACIELA. Not Available [facility] (Lab) [address] [place], [address], 09/21/2024 20:01:46 09/22/19 25 09/21/2024 PARAT HY.HO RM(PT H)INT ACT-W /O CA intact parathyroid hormone 111.1 pg/mL 24.0-7 8.0 high Not Available [facility] (Lab) [address] [place], [address], 09/21/2024 20:18:23 09/22/19 25 09/21/2024 VITAM IN D 25-HY DROXY vd25oh 48.2 NG/mL 30-100 Vitam in D Statu s: Defic ient: <20 ng/mL Insuf ficie nt: 20-29 ng/mL Suffi cient : 30-10 0 ng/mL Not Available [facility] (Lab) [address] [place], [address], 09/21/2024 20:18:38 09/22/19 25 09/21/2024 HEMOG LOBIN A1C HA1C 5.6 % 4.0-6. 0 Diabe octavio Scree kayden Crite ankit: <5.7% Consi stent with absen ce of diabe octavio 5.7-6 .4% Consi stent with incre ased risk for diabe octavio (pred iabet es) >OR=6 .5% Consi stent with diabe octavio REFER ENCE: Diabe octavio Care 2016, 39(Hernández ppl.1 ):s13 -s22 Not Available [facility] (Lab) [address] [place], [address], 09/21/2024 20:26:48 09/22/19 25 09/21/2024 TSH W/REF FARHEEN FT4 TSH with reflex free T4 1.650 uIU/m L 0.465- 4.680 Not Available [facility] (Lab) [address] [place], [address], 09/21/2024 20:36:14 09/22/19 25 09/21/2024 urina lysis , dipst ick Leukocytes (reference range: negative afshan/ l) Small Not Available [address], [address], 09/21/2024 14:23:19 09/22/19 25 09/21/2024 urina lysis , dipst ick Nitrite (reference rage: negative mg/dl) negati ve Not Available [address], [address], 09/21/2024 14:23:19 09/22/19 25 09/21/2024 urina lysis , dipst ick Urobilinogen (reference range: 0.2-1 mg/dl) 0.2 Not Available [address], [address], 09/21/2024 14:23:19 09/22/19 25 09/21/2024 urina lysis , dipst ick Protein (reference range: negative mg/dl) Negati ve Not Available [address], [address], 09/21/2024 14:23:19 09/22/19 25 09/21/2024 urina lysis , dipst ick pH (reference range: 5-7) 7.0 Not Available [address], [address], 09/21/2024 14:23:19 09/22/19 25 09/21/2024 urina lysis , dipst ick Blood (reference range: negative Cornelio/ l) Negati ve Not Available [address], [address], 09/21/2024 14:23:19 09/22/19 25 09/21/2024 urina lysis , dipst ick Specific [place] (reference range: 1.005-1.030) 1.010 Not Available [address], [address], 09/21/2024 14:23:19 09/22/19 25 09/21/2024 urina lysis , dipst ick Ketone (reference range: negative mg/dl) Negati ve Not Available [address], [address], 09/21/2024 14:23:19 09/22/19 25 09/21/2024 urina lysis , dipst ick Bilirubin (reference range: negative mg/dl) Negati ve Not Available [address], [address], 09/21/2024 14:23:19 09/22/19 25 09/21/2024 urina lysis , dipst ick Glucose (reference range: negative mg/dl) Negati ve Not Available [address], [address], 09/21/2024 14:23:19 09/22/19 25 09/21/2024 urina lysis , dipst ick Appearance Clear Not Available [address], [address], 09/21/2024 14:23:19 09/22/19 25 09/21/2024 urina lysis , dipst ick Color Pale Yellow Not Available [address], [address], 09/21/2024 14:23:19 06/15/19 25 06/15/2024 XR, chest , 2 view No observ ation record ed. [address], [place], [address], 07/21/2024 12:00:30 09/17/19 25 09/16/2024 NM, kidne y scan, w/ vascu lar flow + funct ion, singl e, w/o pharm a inter venti on No observ ation record ed. [address], [place], [address], 09/21/2024 14:09:22 10/26/19 25 10/25/2024 XR, kidne y + urete r + bladd er No observ ation record ed. [address], [place], [address], 10/25/2024 14:26:58 11/03/19 25 11/02/2024 XR, kidne y + urete r + bladd er No observ ation record ed. [address], [place], [address], 11/02/2024 15:28:22 Result Notes None recorded. Problems Name Problem SNOMED Code Status Onset Date Resolution Date Notes Provider Name and Address Organization Details Recorded Time Acute sinusitis 39777367 Active 2020 Not Available [facility] 3 07:31:19 Anthony hematuria 081862476 Completed Not Available [facility] 3 07:31:20 Sciatica 53068679 Active 2021 Not Available [facility] 3 07:31:20 Mixed anxiety and depressiv e disorder 406072178 Active 2021 Not Available [facility] 3 07:31:20 Gastroeso phageal reflux disease 196320100 Active 2019 Not Available [facility] 3 07:31:20 Osteoarth ritis of knee 641806326 Active 2016 Not Available [facility] 3 07:31:20 Lumbar spondylos is 439822060 Active 2021 Not Available [facility] 3 07:31:20 Headache 70668789 Completed Daly Pinto NP [address] [facility], [address], [place], [address] , [facility] [employer] [facility] 3 12:00:58 History of thyroid disorder 926797717 Active 2020 Not Available [facility] 3 07:31:20 Low back pain 829344369 Active 2021 Not Available [facility] 3 07:31:20 Retinal disorder 85415059 Active Not Available [facility] 3 07:31:20 Hypertrig lyceridem ia 667561605 Active 2020 Not Available [facility] 3 07:31:21 Depressiv e disorder 09020011 Active Not Available [facility] 3 07:31:21 Seasonal allergic rhinitis 417503658 Active 2019 Not Available [facility] 3 07:31:21 Sinusitis 69698048 Active 2017 Not Available [facility] 3 07:31:21 Hypertens pool disorder 31307992 Active 2019 Not Available [facility] 3 07:31:21 Hematoma 619326430 Completed Not Available [facility] 3 07:31:21 Memory impairmen t 925838777 Active 2020 Not Available [facility] 3 07:31:21 Furuncle 165768749 Completed Michael Faye MD [address], [address], [place], [address] , [facility] [employer] 4 10:18:43 Environme ntal allergy 322039119 Active 2016 Not Available [facility] 3 07:31:21 Herniatio n of lumbar intervert ebral disc with sciatica 78324577857 4105 Active 2021 Not Available [facility] 3 07:31:22 Foot pain 28048983 Completed Not Available [facility] 3 07:31:22 Bilateral tinnitus 59436773922 02 Active 2019 Not Available [facility] 3 07:31:22 Anxiety 36047831 Active Not Available [facility] 3 07:31:22 Upper respirato ry infection 45855835 Completed Not Available [facility] 3 07:31:22 Hyperlipi demia 73348793 Active 2016 Not Available [facility] 3 07:31:22 Migraine without aura 54330468 Active 2016 Not Available [facility] 3 07:31:22 Osteoporo sis 17809775 Active 2021 Not Available [facility] 3 07:31:23 Urinary tract infectiou s disease 96521555 Completed Michael Faye MD [address] [facility], [address] [address], [place], [address] , [facility] [employer] [facility] 4 16:13:03 Acid reflux 522352015 Active 2018 Not Available [facility] 3 07:31:23 Liver enzymes level above reference range 875697969 Active 2020 Not Available [facility] 3 07:31:23 Varicose veins of lower extremity 09804002 Active 2016 Not Available [facility] 3 07:31:23 Sleep apnea 31563373 Active Not Available [facility] 3 07:31:24 Urgent desire to urinate 01574364 Completed Not Available [facility] 3 07:31:24 Postmenop ausal state 83520179 Active 2021 Not Available [facility] 3 07:31:24 Hyperglyc emia 40929653 Active 2016 Not Available [facility] 3 07:31:24 Gout 76699960 Active 2021 Not Available [facility] 3 07:31:24 Skin lesion 76843737 Completed Not Available [facility] 3 07:31:25 Kidney stone 26175493 Completed Not Available [facility] 3 07:31:25 Obese 887092073 Active 2022 Daly Pinto NP [address], [address], [place], [address] , [employer] 3 11:56:43 Headache 56980873 Active 2022 Daly Pinto NP [address], [address], [place], [address] , [employer] [place] [employer] 3 12:00:58 Lumbar radiculop athy 638156394 Active 2022 Michael Faye MD [address], [address], [place], [address] , [employer] 3 17:01:57 Obesity 710166483 Active 2022 Michael Faye MD [address], [address], [place], [address] , [employer] 3 17:02:46 Lipoma of lower leg 804583287 Active 2022 Michael Faye MD [address], [address], [place], [address] , [employer] 3 17:43:42 Idiopathi c hypercalc emia 715660516 Active 2022 Michael Faye MD [address], [address], [place], [address] , [employer] 3 14:31:47 Hyperpara thyroidis m 69730124 Active 2022 Michael Faye MD [address], [address], [place], [address] , [employer] 5 10:26:42 Blood in urine 64405037 Active 2022 Daly Pinto NP [address], [address], [place], [address] , [employer] [place] [facility] [employer] 3 10:44:02 Abnormal uterine bleeding 23717459566 100 Active 2022 Daly Pinto NP [address], [address], [place], [address] , [place] [facility] 3 10:44:49 Acute urinary tract infection 581238030 Active 2022 Daly Pinto NP [address], [address], [place], [address] , [place] [facility] 3 08:51:54 Dysuria 77276263 Active 2022 Michael Faye MD [address], [address], [place], [address] , [place] [facility] [place] [facility] 5 14:23:11 Urinary tract infectiou s disease 57399542 Active 2023 Michael Faye MD [address], [address], [place], [address] , [place] [facility] [place] [facility] 4 16:13:03 Bilateral earache 054164535 Active 2023 Michael Faye MD [address], [address], [place], [address] , [place] [facility] [place] [facility] 4 16:33:22 Candidal vulvovagi nitis 79245340 Active 2023 Michael Faye MD [address], [address], [place], [address] , [place] [facility] [place] [facility] 4 16:37:42 Gouty arthropat hy 655169841 Active 2023 Michael Faye MD [address], [address], [place], [address] , [place] [facility] [place] [facility] 4 09:56:46 Polyarthr opathy 79828759 Active 2023 Michael Faye MD [address], [address], [place], [address] , [place] [facility] [place] [facility] 4 09:58:59 Obstructi ve sleep apnea syndrome 36625468 Active 2023 Michael Faye MD [address], [address], [place], [address] , [employer] 4 10:07:57 Pain of right knee joint 74011989217 4100 Active 2023 LILLY Beltran [address], [address], [place], [address] , [employer] 4 14:54:22 Hypercalc emia 73108192 Active 2023 LILLY Beltran [address], [address], [place], [address] , [employer] 4 14:58:37 Cough 91904963 Active 2024 Michael Faye MD [address], [address], [place], [address] , [employer] 5 14:35:26 Bronchiti s 48861240 Active 2024 Michael Faye MD [address], [address], [place], [address] , [employer] 5 14:57:50 Muscle strain 87936850 Active 2024 Michael Faye MD [address], [address], [place], [address] , [employer] 5 15:14:02 Problem Notes None recorded. Procedures Surgical History Date Name Laterality Status Provider Name and Address Organization Details Recorded Time 10/27/19 Date of Last Pap Smear completed Michael Faye MD [address], [address], [place], [address], [employer] 09/21/2024 14:27:51 09/29/19 24 Medicare Wellness CPT Code, subsequent completed Reji Ashton [employer] 09/29/2023 14:15:26 08/29/19 24 Most Recent Mammogram completed Michael Faye MD [address], [place], [address], [employer] 09/21/2024 14:27:51 06/18/19 24 Transitional_Care_ Management completed Reji Ashton [employer] 06/18/2023 16:22:09 04/03/20 22 Most Recent Bone Density completed Not Available [facility] 07/23/2022 07:26:53 05/25/19 18 Knee Replacement completed Not Available [facility] 07/23/2022 07:26:55 05/25/19 02 repair of ovary completed Not Available [facility] 07/23/2022 07:26:55 05/25/18 92 Cholecystectomy completed Not Available [facility] 07/23/2022 07:26:55 Imaging Results None recorded. Procedure Notes None recorded. Medical Equipment None Reported. Allergies Allergen ID Allergen Name Allergen Category Reaction Reaction Severity Criticality Documentation Date Start Date Code Code System Note Provider Name and Address Organization Details Recorded Time 64069 Substance with sulfonami de structure and antibacte rial mechanism of action (substanc e) medicatio n nausea Not available Not available 07/23/2022 37586 8003 SNOMED Not Available [facility] 3 07:36:13 12208 Zithromax medicatio n other Not available Not available 03/31/2024 4 RxNorm cause s pt to be super jitte ry Michael Faye MD [address] [facility] [address], [place], [address], [employer] 5 14:58:29 91488 Macrobid medicatio n anaphylax is severe high 06/16/20242024 62457 1 RxNorm state s her throa t close d up with in the hour of taktania g it, had to go to ER Yara scanlon [employer] 5 09:32:31 Medications Name Sig Start Date [...] 70 mg tablet 1 tab po weekly 05/14/ 2025 active Not Available Not Available Not Avai [...] EVERY 6 HOURS NEEDED FOR 15 DAYS 2024 active Not Available Not Available Not Avai lable oxybutyni n chloride 5 mg tablet TAKE [...] in Arterial blood by Pulse oximetry Systolic And Diastolic Provider Name and Address Organization Details Last Updated DateTime 160.02 cm 41.5 kg/m2 615532. 61 g 97.3 [degF] 74 /min 20 /min 97 % 97 % 160/90 mm[Hg] Daly Monte RN [facility] [employer] 10:40:55 Date Recorded Oxygen saturation Oxygen saturation in Arterial blood by Pulse oximetry Systolic And Diastolic Provider Name and Address Organization Details Last Updated DateTime 07/21/2024 96 % 96 % 160/84 mm[Hg] Michael Faye MD [address] [place] [address] [address], [place], [address], [facility] [employer] 07/21/2024 12:20:50 Date Recorded Body height Body mass index (BMI) Body weight Body temperature Heart rate Respiratory rate Provider Name and Address Organization Details Last Updated DateTime 160.02 cm 41.7 kg/m2 905282. 91 g 97.5 [degF] 74 /min 20 /min Daly Monte RN [facility] [employer] [facility] 5 11:46:53 Date Recorded Body height Body mass index (BMI) Body weight Body temperature Oxygen saturation Oxygen saturation in Arterial blood by Pulse oximetry Heart rate Systolic And Diastolic Provider Name and Address Organization Details Last Updated DateTime 5 160.02 cm 41.4 kg/m2 146238. 82 g 98.2 [degF] 96 % 96 % 72 /min 120/70 mm[Hg] Nely Xiao RN [facility] [employer] [facility] 5 14:53:14 Date Recorded Body height Body mass index (BMI) Body weight Body temperature Oxygen saturation Oxygen saturation in Arterial blood by Pulse oximetry Heart rate Systolic And Diastolic Provider Name and Address Organization Details Last Updated DateTime 5 160.02 cm 40.6 kg/m2 988856. 05 g 98.1 [degF] 97 % 97 % 81 /min 142/70 mm[Hg] Nely Xiao RN [facility] [employer] [facility] 5 14:07:59 Date Recorded Body height Body mass index (BMI) Body weight Body temperature Oxygen saturation Oxygen saturation in Arterial blood by Pulse oximetry Heart rate Systolic And Diastolic Provider Name and Address Organization Details Last Updated DateTime 5 160.02 cm 41 kg/m2 766298. 89 g 97.7 [degF] 98 % 98 % 76 /min 140/64 mm[Hg] Nely Xiao RN [facility] [employer] [facility] 5 10:19:26 Social History Question Answer Notes LastModified by Organizat ion Details LastModified Time Tobacco Smoking Status Never Smoker Elida scanlon [facility] [employer] [facility] 06/18/2023 16:10:12 Do You Have An Advance Directive? Yes [id number] Information not available 07/23/2022 Are You Blind Or Do You Have Difficulty Seeing? No Information not available 06/18/2023 Is Blood Transfusion Acceptable In An Emergency? Yes Information not available 06/18/2023 What Is Your Level Of Caffeine Consumption? Moderate [id number] Information not available 07/23/2022 How Much Tobacco Do You Chew? None [id number] Information not available 07/23/2022 What Is Your [...] Type Of Diet Are You Following? GLUTENFREE [email or web address] Information not available 12/30/2023 Which Illicit Or Recreational Drugs Have You Used? None Information not available 06/18/2023 What Is The Highest Grade Or Level Of School You Have Completed Or The Highest Degree You Have Received? [id number] Information not available 06/18/2023 How Many Days [...] not available 06/18/2023 Where [facility] You Live[facility] Information not available 06/18/2023 Advance Directive- [...] Do You Have A Medical Power Of Animal Groomer? No Information not available 06/18/2023 What Was [...] is your level of alcohol consumption? None [id number] Information not available 07/23/2022 Are you currently [...] 06/18/2023 What is your exercise level? Moderate [email or web address] Information not available 12/30/2023 Mental Status Question Answer Note LastModified by Organizat ion Details LastModified Time Do you feel stressed (tense, restless, nervous, or anxious, or unable to sleep at night)? [id number] Information not available 11/09/2023 Do you have difficulty concentrating, remembering or making decisions? No Information no t available 06/18/2023 Family History Relationship Description Onset Age of this Age Resolved Age Notes LastModified by Organization Details LastModified Time Father No current problems or disability [id number] Not available 07/23/2022 07:26:58 Mother No current problems or disability [id number] Not available 07/23/2022 07:26:58 Medical History Condition Response OBESITY Y GERD/NAUSEA Y URINARY/BLADDER/KIDNEY PROBLEMS Y HYPERTENSION Y ANXIETY DISORDER Y BACK INJECTIONS Y ALLERGIES/HAYFEVER Y HIGH CHOLESTEROL / HYPERLIPIDEMIA Y BACK / NECK PROBLEMS Y HEADACHES/MIGRAINES Y Gynecological History Statement/Question Response Abnormal Pap [...] virus, quadrivalent, preservative 8 completed Not Available [facility] 07/23/2022 07:36:04 Influenza, split virus, trivalent, preservative 5 completed Not Available [facility] 07/23/2022 07:36:04 zoster live 5 completed Not Available [facility] 07/23/2022 07:36:04 Influenza, split virus, trivalent, PF 4 completed Not Available [facility] 07/23/2022 07:36:04 Pneumococcal conjugate PCV 13 0 completed Not Available [facility] 07/23/2022 07:36:05 Influenza, high-dose, quadrivalent, PF 0 completed Not Available [facility] 07/23/2022 07:36:05 Tdap 8 completed Not Available [facility] 07/23/2022 07:36:05 Influenza, split virus, quadrivalent, PF 6 completed Not Available [facility] 07/23/2022 07:36:05 Past Encounters Encounter ID Performer Location Encounter Start Date Encounter Closed Date Diagnosis/Indication Diagnosis SNOMED-CT Code Diagnosis ICD10 Code Diagnosis Note [id number] Daly Pinto NP [address] [address] 07/24/2020 00:00:00 07/24/2020 09:44:41 [id number] Michael Faye MD [address] [address] 10/31/2020 00:00:00 10/31/2020 09:16:25 [id number] Michael Faye MD [facility] [address] [place] [address] 11/20/2020 00:00:00 11/20/2020 12:21:01 [id number] Michael Faye MD [address] [address] 02/13/2021 00:00:00 02/13/2021 14:33:22 [id number] Michael Faye MD [facility] [address] [place] [address] 02/26/2021 00:00:00 02/26/2021 14:32:03 [id number] Michael Faye MD [facility] [address] [place] [address] 07/24/2021 00:00:00 07/24/2021 14:56:44 [id number] Michael Faye MD [facility] [address] [place] [address] 10/09/2021 00:00:00 10/09/2021 14:38:30 [id number] Daly Pinto NP [facility] [address] [place] [address] 02/26/2022 00:00:00 02/26/2022 10:42:26 [id number] Michael Faye MD [facility] [address] [place] [address] 03/18/2022 00:00:00 03/19/2022 15:55:39 [id number] Michael Faye MD [facility] [address] [place] [address] 04/29/2022 00:00:00 04/29/2022 18:09:05 [id number] Michael Faye MD [facility] [address] [place] [address] 05/06/2022 00:00:00 05/06/2022 15:25:01 [id number] Daly Pinto NP [facility] [address] [place] [address] 08/06/2022 11:17:09 08/06/2022 12:50:33 Hyperlipidemia 45918108 E78.5 Low fat diet. Statins cause pain. 02/27/22 last lab result. Essential hypertension 56258137 I10 amlodipine 5 mg po daily.ASA 81 mg po dailyLosar puckett 100 mg po daily.tria mterene 37.5 mg-hctz25 mg po daily. (this can increase gout flare, so stopped and started on losartan only) Osteoporosis 20360084 M8 1.0 alendronat e 70 mg po weekly pt stopped. Wants to follow Dr. Sims holistic provider and be on vitamins.M eloxicam 15 mg po daily.Tram adol 50 mg po tid prn- pt trying to wean off. Acid reflux 130225795 K2 1.9 famotidine 20 mg po daily. Sleep apnea 01877030 G47 .30 Gout 87847572 M10.9 allopurino l 100 mg po daily. Seasonal a llergic rhinitis 867888730 J30.2 cetirizine 10 mg po daily.Flon ase prn Mixed anxi ety and depressive disorder 158242701 F41.8 Pt weaned herself off the lexapro. Hydroxyzin e prn use. Sciatica 44834465 M54.32 cyclobenza shalini 10 mg po tid prn.Gabape ntin 300 mg po nightly. Obese 858522409 E66.9 Diet and exercise. Wegovy and phentermin e discussed. Phentermin e 15 mg po daily. Headache 15025789 R51.9 [id number] Michael Faye MD [address] [address] 08/07/2022 16:38:36 08/07/2022 17:44:28 Cramp in lower limb 931762254 R25.2 B/L Lumbar radiculopathy 128 810838 M54.16 Gout 84478306 M10.9 Obesity 542986909 E66.9 Lipoma of lower leg 1890 72137 D17.24 Lt [id number] Daly Pinto NP [address] [address] [address] 09/09/2022 09:34:15 09/09/2022 10:58:16 Blood in urine 49779485 R31.9 Sending urine for culture. Blood with wiping- no periods for 15 years. Abnormal u terine bleeding 2542944651 9100 N93.9 referring to event marketing representative- pt to find provider that accepts insurance. Obese 717090268 E66.9 Diet and exercise. Phentermin e 15 mg po daily. Down 2 lbs. Would like to continue. [id number] Daly Pinto NP [address] [address] 10/09/2022 09:13:04 10/09/2022 10:05:37 Obese 585317247 E66.9 Diet and exercise. Phentermin e 15 mg po daily. Down 2 lbs. Would like to continue.I LPMP last fill 09/09/22.Ph entermine 37.5 mg po daily. Essential hypertension 13225381 I10 amlodipine 5 mg po daily.ASA 81 mg po dailyLosar puckett 100 mg po daily.tria mterene 37.5 mg-hctz25 mg po daily. (this can increase gout flare, so stopped and started on losartan only) Gastroesop hageal reflux disease 689445465 K21.9 [id number] Daly Pinto NP [address] [address] 1 10/24/2022 10:41:24 10/24/2022 11:44:26 Dysuria 98788310 R30.0 R30.9 Patient was started on antibiotic and advised to increase water intake.Cul ture sent.Urina lysis in office +nitrites [id number] Daly Pinto NP [address] [address] 1 01/21/2023 13:58:46 01/21/2023 18:03:00 Gout 74950353 M10.9 allopurino l 200 mg po daily. Seeing Dr. Becerra. Sleep apnea 99038963 G47 .30 CPAP Acid reflux 798392049 K2 1.9 famotidine 20 mg po daily. Hyperparathyroidism 6699 9008 E21.3 referred to endo, but patient cancelled. Osteoporosis 94158376 M8 1.0 alendronat e 70 mg po weekly pt stopped. Wants to follow Dr. Sims holistic provider and be on vitamins.M eloxicam 15 mg po daily.Tram adol 50 mg po tid prn- pt trying to wean off. Not able to yet- trying to lose weight. Essential hypertension 75189741 I10 amlodipine 5 mg po daily.ASA 81 mg po dailyLosar puckett 100 mg po daily.tria mterene 37.5 mg-hctz25 mg po daily. (this can increase gout flare, so pt monitoring ) Migraine without aura 56 210326 G43.009 Hyperlipidemia 18320582 E78.5 Low fat diet. Statins cause pain. 02/27/22 last lab result. Anxiety 93434138 F41.9 Obese 720771711 E66.9 Diet and exercise. Lumbar spondylosis 14328 0009 M47.896 Osteoarthr itis of knee 225111471 M17.9 [id number] Michael Faye MD [address] [address] 06/18/2023 16:09:07 06/18/2023 17:00:32 Seen in emergency clinic 881615574 Z76.89 Recent ED records reviewed. Urinary tr act infectious disease 67798717 N39.0 Transition of care 55456 10447 105 Z75.8 Sinusitis 11212697 J32.9 Bilateral earache 879345 003 H92.03 Candidal vulvovaginitis 34024387 B37.31 Essential hypertension 85308350 I10 Gout 81779281 M10.9 Obesity 516285672 E66.9 [id number] Michael Faye MD [address] [address] 1 09/02/2023 09:43:47 09/02/2023 10:22:40 Hypertensive disorder 56914517 I10 Gouty arthropathy 979794 008 M10.09 Gynecologi c examination 34703507 Z01.419 Depressive disorder 3548 9007 F32.A Polyarthropathy 23141473 M13.0 Obesity 389219514 E66.9 Osteoporosis 98246254 M8 1.0 Screening mammography 24 331647 Z12.31 Screening for malignant neoplasm of colon 809752741 Z12.11 Urinary tr act infectious disease 57960258 N39.0 Obstructiv e sleep apnea syndrome 72695171 G47.33 [id number] Michael Faye MD [address] [address] 1 09/29/2023 14:13:02 09/29/2023 15:00:22 Hypertensive disorder 09617817 I10 Gouty arthropathy 786169 008 M10.09 Depressive disorder 3548 9007 F32.A Polyarthropathy 85720626 M13.0 Obesity 121539016 E66.9 Osteoporosis 93674086 M8 1.0 Obstructiv e sleep apnea syndrome 18168530 G47.33 [facility] th examination 506372934 Z00.00 Screening for disorder 544852645 Z13.9 Hyperlipidemia 46135618 E78.5 Liver enzy mes level above reference range 562126885 R74.01 Idiopathic hypercalcemia 516380927 E83.52 Essential hypertension 15172985 I10 [id number] Michael Faye MD [address] [address] 11/09/2023 14:20:26 11/09/2023 15:06:36 Pain of right knee joint 3440010174 72878 M25.561 Hypercalcemia 64837956 E 83.52 [id number] Michael Faye MD [address] [address] 1 12/22/2023 09:14:13 12/22/2023 09:30:39 [id number] Michael Faye MD [address] [address] 1 12/30/2023 09:42:46 12/30/2023 10:33:19 Hypertensive disorder 30058014 I10 Gouty arthropathy 977573 008 M10.09 Depressive disorder 3548 9007 F32.A Polyarthropathy 15575763 M13.0 Obesity 238092770 E66.9 Osteoporosis 89685308 M8 1.0 Obstructiv e sleep apnea syndrome 15104360 G47.33 Hyperlipidemia 84265900 E78.5 Liver enzy mes level above reference range 929701231 R74.01 Idiopathic hypercalcemia 282541723 E83.52 Osteoarthr itis of knee 673746009 M17.9 [id number] Michael Faye MD [address] [address] 1 03/31/2024 09:38:14 03/31/2024 10:14:55 Idiopathic hypercalcemia 155709910 E83.52 Gouty arthropathy 249845 008 M10.09 Hypertensive disorder 38 274349 I10 Depressive disorder 3548 9007 F32.A Polyarthropathy 86148878 M13.0 Obesity 281343717 E66.9 Osteoporosis 71841945 M8 1.0 Obstructiv e sleep apnea syndrome 27608930 G47.33 Hyperlipidemia 80758139 E78.5 Liver enzy mes level above reference range 253175635 R74.01 Osteoarthr itis of knee 414354985 M17.9 [id number] Michael Faye MD [address] [address] 1 06/15/2024 10:16:28 06/15/2024 10:56:03 Acute urinary tract infection 249612284 N39.0 hx of sepsis related to UTI [id number] Michael Faye MD [address] [address] 1 07/21/2024 11:36:24 07/21/2024 12:34:55 Gouty arthropathy 311215987 M10.09 Idiopathic hypercalcemia 157090714 E83.52 Hypertensive disorder 38 076154 I10 Depressive disorder 3548 9007 F32.A Polyarthropathy 52722248 M13.0 Obesity 020072378 E66.9 Osteoporosis 68753357 M8 1.0 Obstructiv e sleep apnea syndrome 72095692 G47.33 Hyperlipidemia 26812805 E78.5 Liver enzy mes level above reference range 512311246 R74.01 Osteoarthr itis of knee 329855876 M17.9 Blood in urine 64639490 R31.9 Dysuria 78856607 R30.0 [id number] Michael Faye MD [address] [address] 08/17/2024 14:29:59 08/17/2024 15:04:55 Cough 46129740 R05.9 Bronchitis 09383026 J40 Muscle strain 60795290 T 14.8XXA [id number] Michael Faye MD [address] [address] 1 09/21/2024 13:53:04 09/21/2024 14:42:12 Gouty arthropathy 714634841 M10.09 Idiopathic hypercalcemia 794475836 E83.52 Hypertensive disorder 38 940419 I10 Depressive disorder 3548 9007 F32.A Polyarthropathy 36159438 M13.0 Obesity 041737371 E66.9 Osteoporosis 59178047 M8 1.0 Obstructiv e sleep apnea syndrome 74159899 G47.33 Hyperlipidemia 62644413 E78.5 Liver enzy mes level above reference range 580419670 R74.01 Osteoarthr itis of knee 761609012 M17.9 Dysuria 78682422 R30.0 [id number] Michael Faye MD [address] [address] 1 10/05/2024 10:11:13 10/05/2024 10:36:25 Hypertensive disorder 86590021 I10 Gouty arthropathy 529260 008 M10.09 Idiopathic hypercalcemia 755823158 E83.52 Depressive disorder 3548 9007 F32.A Polyarthropathy 09275744 M13.0 Obesity 490741339 E66.9 Osteoporosis 01933830 M8 1.0 Obstructiv e sleep apnea syndrome 95276438 G47.33 Hyperlipidemia 05072054 E78.5 Liver enzy mes level above reference range 234940762 R74.01 resolved Osteoarthr itis of knee 044459388 M17.9 Hyperparathyroidism 6699 9008 E21.3 Health Concerns Section Related Observation LastModified by Organization Detai ls LastModified Time None Recorded Concern Status LastModified by Organization Details LastModified Time None Recorded Advance Directives Directive Y: Payers Insurance Date Sequence Insurance Name Policy Number Policy Dunham Covered Member ID Dunham Member ID Guarantor Name 10/04/[address] [facility] (MEDICARE REPLACEMENT/A DVANTAGE - HMO) [id number] Rody Monson [id number] Rody Monson Notes Date Note Type Note Provider Name and Address Organization Details Recorded Time 06/15/2024 text/html Royd Monson is a 68 year old female patient here today for urinary concerns She states she gets UTIs frequently She noticed blood in her urine last night, pelvic pain, pressure, urgency LILLY Beltran [address], [place], [address], [employer] 06/15/2024 10:51:32 07/21/2024 text/html FUV + ACV: [...] by them. Michael Faye MD [address], [address], [place], [address], [employer] 07/21/2024 14:54:26 08/17/2024 text/html ACV: C/o cough, congestion, drainage for last 3 weeks, on/off. Pt has been doing otc meds and its still not getting better. Due to cough, she is c/o middle back area pain too. Denies any recent fall/trauma. Michael Faye MD [address], [place], [address], [employer] 08/17/2024 15:14:28 09/21/2024 text/html Pt is here for h er annual exam. Doing overall better. Denies any problem with meds. Denies any new concern. Still has lot of urinary issues and she called yesterday to be started on Amoxicillin for it. Pt is f/u with Uro at [facility] for her recurrent UTIs and kidney stones [...] EDW and in on supplements by them. iMchael Faye MD [address] [facility], [address], [place], [address], [employer] 09/21/2024 14:29:00 10/05/2024 text/html Pt is here for f /u on her annual labs. Doing overall better. Denies any problem with meds. Denies any new concern. Pt is f/u with Uro at [facility] for her recurrent UTIs and kidney stones [...] Faye MD [address], [place], [address], [employer] 10/05/2024 10:32:33 OBGyn Episode No OBEpisode recorded.
--- OUTSIDE RECORDS SUMMARY | 2024-12-01 11:34 | XMS_ITS | Clinical Summary ---
Author Organization [facility] Address [facility] [place] [address] Care Team Providers Care Bulk Tank Car Unloader Name Role Phone Unavailable Primary Care Provider [...]
== END 2024-12-01 11:29 | disposition home or self-care (01) ==
PROVIDERS: PCP Family Medicine; Visit Provider Urology
DX: N20.0 Calculus of kidney (principal)
CPT/HCPCS: 74018

== ENCOUNTER 2024-12-14 14:47 | Outpatient (CLI) | payer MEDICARE, SELFPAY ==
--- NOTE | ~2024-12-14 | CT_ITS ---
EXAMINATION: CT abdomen pelvis wo con DATE: 12/14/2024 15:13 INDICATION: LEFT URETERAL STONE TECHNIQUE: Computed tomography (CT) of the abdomen and pelvis was performed without intravenous contr ast. Automated exposure control and iterative reconstruction technique were employed. The dose-length product was 860.77 mGy-cm. COMPARISON: 10/24/2018 x-ray abdomen 12/01/2024. FINDINGS: Lower thorax: Unremarkable Liver: Normal. Biliary/Gallbladder: Gallbladder is absent. No bile duct dilation. Pancreas: No mass or duct dilation. Spleen: Normal. Adrenals:No mass. Kidneys: Bilateral renal cortical thinning and scarring. Multiple left renal pelvis calcifications, m easuring up to 12 mm. Subcentimeter exophytic left hypodensity, too small to characterize but most li katarina represents a cyst. Tiny left upper pole fat density may represent small AML. Mild left pelviecta sis and caliectasis. GI tract: No small or large bowel dilation. Normal appendix. Mesentery/Peritoneum: No ascites, mass, or free air. Retroperitoneum: No mass. Atherosclerotic calcifications of intra-abdominal arterial vessels. Pelvis: Pelvic organs are within normal limits. Soft Tissues: Small uncomplicated fat-containing umbilical hernia Bones: No acute osseous finding. Grade 1 anterolisthesis at L4-5. IMPRESSION: Mild chronic left pelviectasis and caliectasis. Increasing left nephrolithiasis. No evidence of obstr uctive uropathy. Reviewed, dictated and finalized at location K. IMPRESSION: Mild chronic left pelviectasis and caliectasis. Increasing left nephrolithiasis . No evidence of obstructive uropathy.
--- OUTSIDE RECORDS SUMMARY | 2024-12-14 14:53 | XMS_ITS | Clinical Summary ---
Author Organization [facility] Address [address] [place] [address] Care Team Providers Care Communications Operator Name Role Phone Fabiola Melo MD Unavailable [phone] Brittany Elias MD Primary Care Provider Source Comments [facility],non-owned Affiliates and Associated Physician Practices is amultiple site organization consisting of ambulatory clinics and hospital sitesin [place], [place], [place] and [place]. This disclosure is being madepursuant to the Care Everywhere program and may not contain all information available regarding this patient. 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 Gender Identity Not on file Sexual Orientation [...] 01/18/2018 COVID-19 VACCINE ( - season) 2024 DEPRESSION SCREENING 05/25/2024 INFLUENZA VACCINE (#1) 2025 8, 04/28/2016, 02/23/2015, Additional history exists HEPATITIS B [...] this topic Medical Devices Implanted Type Area Cooperative Education Coordinator Device Identifier Shelf Expiration Date Model / Serial / Lot Cmnt Bone Cblt 40gm Hvisc Strl Implanted:Qty: 1 on 02/11/2018 by Toño Johnston MD at [facility] Left: Knee [employer] 02/21/2019 600-15-000 / / [id number] Cmpnt Ptlr 28mm 1 Pg Wire Ascnt Arcm Kn Implanted:Qty: 1 on 02/11/2018 by Toño Johnston MD at [facility] Left: Knee [employer] 01/29/2023 [id number] / / [id number] Tray Tib 71mm Kn Cocr I Beam Implanted:Qty: 1 on 02/11/2018 by Toño Johnston MD at [facility] Left: Knee [employer] 12/02/2027 [id number] / / [id number] Cmpnt Fem Kn Lt Cr Cmnt Prm Vngrd Intlk Implanted:Qty: 1 on 02/11/2018 by Toño Johnston MD at [facility] Left: Knee [employer] 10/21/2027 [id number] / / [id number] Brng 62cth12po Vngrd Arcm Kn Ant Stab Implanted:Qty: 1 on 02/11/2018 by Toño Johnston MD at [facility] Left: Knee [employer] 12/22/2022 [id number] / / [id number] Procedures Procedure Name Priority Date/Time Associated Diagnosis [...] LAB - CHEMISTRY ORDERABLES Fi nal Result [facility] [address] [place] [address] from Last 3 Months or Most Recently Relevant to Health Maintenance Insurance [facility] Advance Directives * Full Code (Latest Code Status on File) Date Activated Date Inactivated Comments 02/11/2018 11:11 AM 02/14/2018 1:10 PM Care Teams Communications Operator Relationship Specialty Start Date End Date Brittany Elias MD [address] [place] [phone] PCP - General 05/26/19 [place] [address] [address] Orthopedic Surgery 06/06/14
--- OUTSIDE RECORDS SUMMARY | 2024-12-14 14:53 | XMS_ITS | Continuity of Care Document ---
Author Organization [facility] Address [address] [place] [address] Phone Care Team Providers Care Forestry Extension Specialist Name Role Phone Tomas Clayton Unavailable Unavailable Procedures Procedure Date Eye Exam Established Pt Ophthalmoscopy, Subsequent Office Consultation Ophthalmoscopy Advance Directives Directive Yes / No Effective Date File Name No Information Encounters Encounter Description Practice Location Reason(s) For Visit Diagnoses Date Provider Providers Copied on Encounter [facility], [id number] [place] [address] [address], [place], [place], [id number], tel:[phone] [facility] No Information [address] [place], [place], [facility], . [phone] Referring Provider: Tomas Berg, [address] [place], [place], [facility]. tel:[phone] Office Consultation [facility], [address] [place] [address] [address], [place], [place], [id number], tel:[phone] [facility] No Information [address] [place], [place], [facility], [place]. tel:[phone] Referring Provider: Marcio Lagunas, [address], [place], [place], [facility]. tel:[phone] Family History Family Member Type Diagnosis Age [...]
--- OUTSIDE RECORDS SUMMARY | 2024-12-14 14:53 | XMS_ITS | Data Portability ---
Author Organization [place] [facility] [employer] [facility] Address [address] [place] [address] Assessment Encounter Date Assessment Date Assessment LastModified by Organization Details LastModified Time 08/06/2024 08/06/2024 Ddx: UTI, STI, Pyelonephritis A: Patient s symptoms and history consistent with urinary tract infection. P: Provided counseling/treatme nt recommendations as noted below: Medication prescribed: See Rx section If any medications were discussed (either prescription or hlhz-iol-mhzyvug), please review any potential side effects before [...] Cipro 250 mg tablet 025 08/07/19 25 [facility][id number], [address] [place], [address], 18:41:41 Patient TargetsNo targets recorded. Patient Instructions Encounter Date Encounter Id Patient Instructions Last Modified By Organization Details Last Modified Time 08/06/2024 [id number] Urinary Tract Infection (UTI) in Women: Care [...] Name and Address Organization Details Recorded Time 013606 Macrobid medicatio n Not available Not available Not available 08/06/2024 04005 1 RxNorm Not Available [facility] 17:37:03 479576 Substance with sulfonami de structure and antibacte rial mechanism of action (substanc e) medicatio n Not available Not available Not available 08/06/2024 32015 8003 SNOMED Not Available [facility] 17:37:03 Medications Name Sig Start Date Stop [...] SNOMED-CT Code Diagnosis ICD10 Code Diagnosis Note [id number] LILLY Agarwal [facility] [place] [address] 08/06/2024 17:41:34 08/06/2024 17:47:23 Patient not examined 984622686 Z53.9 [id number] LILLY Agarwal [facility] [place] [address] 08/06/2024 17:50:32 08/07/2024 15:27:58 Acute urinary tract infection 536901734 N39.0 Health Concerns Section Related Observation LastModified by Organization Detai ls LastModified Time None Recorded Concern Status LastModified by Organization Details LastModified Time None Recorded Advance Directives Directive None Recorded Payers Insurance Date Sequence Insurance Name Policy Number Policy Dunham Covered Member ID Dunham Member ID Guarantor Name 08/06/2024 [employer] [id number] Rody Monson [id number] Rody Monson 08/06/2024 3 *SELF PAY* [id number] Rody Monson [id number] Rody Monson 08/06/2024 1 *SELF PAY* Laith Monson 08/06/2024 1 [facility] [place] [id number] Rody Monson [id number] Rody Monson 08/06/2024 2 [facility] [id number] Rody Monson [id number] Rody Monson Notes Date Note Type Note Provider Name and Address Organization Details Recorded Time 08/06/2024 text/html ROS as noted in the HPI Provider at the time of the visit [...] History of kidney stones: mark anthony Chen, DINKEY LOCOMOTIVE ENGINEER [address] [facility] [address], [place], [address], [facility] 08/07/2024 13:03:28 OBGyn Episode No OBEpisode recorded.
--- OUTSIDE RECORDS SUMMARY | 2024-12-14 14:54 | XMS_ITS | Data Portability ---
Author Organization [place] [facility], Main Office Address [address] [place] [address] Care Team Providers Care Quality Analyst Name Role Phone FAYE, MICHAEL Primary Care Provider Assessment Encounter Date Assessment [...] in 2-3 months. Annual labs in 09/16. [email or web address] Not available 07/21/2024 12:22:19 09/21/2024 09/21/2024 68 [...] per schedule. Cont f/u with Uro at [place] as per schedule. Cont f/u with Ophtho [...] in 2-3 weeks. Annual labs in 09/17. [email or web address] Not available 09/21/2024 14:27:40 10/05/2024 10/05/2024 68 [...] per schedule. Cont f/u with Uro at [place] as per schedule. Cont f/u with Ophtho [...] Lipids in 02/16. Annual labs in 09/17. [email or web address] Not available 10/05/2024 10:31:44 Plan of Treatment Reminders Order Date Submit Date Provider Last Modified By Organization Details Last Modified Time Details Appointments Follow Up 15 2024 08:45A Odin Faye MD Not available Not available Not available Lab lipid panel, serum 2024 025 [facility] (Lab), [address] [place], [address], 10/05/2024 10:27:38 PTH (parathyr oid hormone), intact + calcium, serum or plasma 2024 025 [email or web address] [facility] (Lab), [address] [place], [address], 09/28/2024 10:09:27 urinalysi s, dipstick 2024 025 [email or web address] [facility], [address] [place] [address], [address], 09/21/2024 14:45:15 CBC w/ auto diff [address] (Lab), [address] [place], [address], 09/21/2024 14:49:44 CMP, serum or plasma 2024 025 [facility] (Lab), [address] [place], [address], 09/21/2024 20:01:42 urinalysi s complete, reflex culture [address] (Lab), [address] [place], [address], 09/21/2024 14:48:30 uric acid, serum or plasma 2024 025 [facility] (Lab), [address] [place], [address], 09/21/2024 20:01:35 lipid panel, serum 2024 025 [facility] (Lab), [address] [place], [address], 09/21/2024 20:01:46 TSH, serum or plasma 2024 025 [facility] (Lab), [address] [place], [address], 09/21/2024 20:36:14 glycohemo globin, total, blood 2024 025 [facility] (Lab), [address] [place], [address], 09/21/2024 20:26:48 vitamin D, 25-hydrox y, total, serum 2024 025 [email or web address] [facility] (Lab), [address] [place], [address], 09/28/2024 10:09:27 urinalysi s, dipstick 2024 025 [facility], [address] [place] [address], [address], 07/21/2024 12:23:41 culture, urine 2024 025 [facility] (Lab), [address] [place], [address], 07/22/2024 07:44:27 urinalysi s, dipstick 2024 025 [facility], [address] [place] [address], [address], 06/15/2024 10:58:49 culture, urine + sensitivi ty 2024 025 [facility] (Lab), [address] [place], [address], 06/22/2024 08:03:50 Referral endocrino logy referral - [place] PTH[place]. Please call patient to schedule an appointme nt. Thank you. 2024 025 EULALIA Mcbride MD, [address] [facility] [address], [place], [address], 10/07/2024 15:17:31 urologist referral - Recurrent UTIs ++ Please call patient to schedule an appointme nt with Ap Greco. Thank you. 2024 025 [email or web address] [facility] [address], [place], [address], 10/21/2024 09:33:25 Procedures None recorded. Surgeries None recorded. Imaging None recorded. Medication Orders alendrona te 70 mg tablet 2024 [facility], [address], [place], [place], [address], 10/05/2024 10:27:49 amlodipin e 5 mg tablet 2024 [facility], [address], [place], [place], [address], 10/05/2024 10:27:50 losartan 100 mg tablet 2024 [facility], [address], [place], [place], [address], 10/05/2024 10:27:46 triamtere ne 37.5 mg-hydroc hlorothia zide 25 mg capsule 2024 [facility], [address], [place], [address], 10/05/2024 10:27:50 rosuvasta tin 10 mg tablet 2024 025 [facility], [address], [place], [address], 10/05/2024 10:27:47 allopurin ol 300 mg tablet 2024 025 [facility], [address], [place], [address], 10/05/2024 10:27:47 meloxicam 7.5 mg tablet 2024 025 [facility], [address], [place], [address], 10/05/2024 10:27:47 escitalop marty 10 mg tablet 2024 025 [facility], [address], [place], [address], 10/05/2024 10:27:49 alendrona te 70 mg tablet 2024 [facility], [address], [place], [address], 09/21/2024 14:15:45 amlodipin e 5 mg tablet 2024 [facility], [address], [place], [address], 09/21/2024 14:15:41 losartan 100 mg tablet 2024 [facility], [address], [place], [address], 09/21/2024 14:15:43 triamtere ne 37.5 mg-hydroc hlorothia zide 25 mg capsule 2024 [facility], [address], [place], [address], 09/21/2024 14:15:42 allopurin ol 300 mg tablet 2024 [facility], [address], [place], [address], 09/21/2024 14:15:41 rosuvasta tin 5 mg tablet [address] [facility], [address], [place], [address], 10/05/2024 10:30:40 meloxicam 7.5 mg tablet [address] [facility], [address], [place], [address], 09/21/2024 14:17:29 escitalop marty 10 mg tablet 2024 [facility], [address], [place], [address], 09/21/2024 14:15:42 azithromy poli 250 mg tablet 2024 [facility], [address], [place], [address], 08/17/2024 15:00:30 prednison e 10 mg tablet 2024 025 [facility], [address], [place], [address], 08/17/2024 15:00:29 albuterol sulfate HFA 90 mcg/actua tion aerosol inhaler [address] [facility], [address], [place], [address], 08/17/2024 15:01:31 benzonata te 200 mg capsule 2024 025 [facility], [address], [place], [address], 08/17/2024 15:00:30 cephalexi n 500 mg capsule [address] [facility], [address], [place], [address], 08/17/2024 14:35:51 alendrona te 70 mg tablet 2024 025 [facility], [address], [place], [address], 07/21/2024 12:05:25 losartan 100 mg tablet 2024 025 [facility], [address], [place], [address], 07/21/2024 12:05:30 triamtere ne 37.5 mg-hydroc hlorothia zide 25 mg capsule 2024 [facility], [address], [place], [place], [address], 07/21/2024 12:05:23 amlodipin e 10 mg tablet 2024 [facility], [address], [place], [place], [address], 07/21/2024 12:08:14 allopurin ol 300 mg tablet [address] [facility], [address], [place], [place], [address], 07/21/2024 12:11:32 rosuvasta tin 5 mg tablet [address] [place] [address] Pharmacy [facility], [address], [place], [place], [address], 10/05/2024 10:30:40 meloxicam 7.5 mg tablet 2024 [facility], [address], [place], [address], 07/21/2024 12:05:27 escitalop marty 10 mg tablet [address] [place] [address] Pharmacy [facility], [address], [place], [address], 07/21/2024 12:05:26 Macrobid 100 mg capsule [address] [place] [address] Pharmacy 4878, [address], [place], [place], [address], 07/21/2024 11:39:16 Patient TargetsNo targets recorded. Patient Instructions Encounter Date Encounter Id Patient Instructions Last Modified By Organization Details Last Modified Time 07/21/2024 [id number] starting a weigh t loss plan: care instructions [email or web address] Not available 07/21/2024 12:05:10 09/21/2024 [id number] starting a weigh t loss plan: care instructions [email or web address] Not available 09/21/2024 14:15:29 10/05/2024 [id number] starting a weigh t loss plan: care instructions [email or web address] Not available 10/05/2024 10:27:38 Reason for Referral Urologist Referral for Blood in urine Recurrent UTIs ++ Please call patient to schedule an appointment with Ap Greco. Thank you. Referring Physician: Michael Faye [facility], Encounter Date: 07/21/2024 Endocrinology Referral for H yperparathyroidism [place] PTH, [place]. Please call patient to schedule an appointment. Thank you. Referring Physician: Michael Faye [facility], Encounter Date: 10/05/2024 Results Created Date Observation Date Name Description Value Unit Range Abnormal Flag Note LastModifiedBy Organization Detail LastModifiedTime 06/15/19 25 06/15/2024 urina lysis , dipst ick Leukocytes (reference range: negative afshan/ l) Modera te Not Available [address], [address], 06/15/2024 10:46:33 06/15/19 25 06/15/2024 urina lysis , dipst ick Nitrite (reference rage: negative mg/dl) negati ve Not Available [address], [address], 06/15/2024 10:46:33 06/15/19 25 06/15/2024 urina lysis , dipst ick Urobilinogen (reference range: 0.2-1 mg/dl) 0.2 Not Available [address], [address], 06/15/2024 10:46:33 06/15/19 25 06/15/2024 urina lysis , dipst ick Protein (reference range: negative mg/dl) Trace Not Available [address], [address], 06/15/2024 10:46:33 06/15/19 25 06/15/2024 urina lysis , dipst ick pH (reference range: 5-7) 7.0 Not Available [address], [address], 06/15/2024 10:46:33 06/15/19 25 06/15/2024 urina lysis , dipst ick Blood (reference range: negative Cornelio/ l) Negati ve Not Available [address], [address], 06/15/2024 10:46:33 06/15/19 25 06/15/2024 urina lysis , dipst ick Specific Valmy (reference range: 1.005-1.030) 1.010 Not Available [address], [address], 06/15/2024 10:46:33 06/15/19 25 06/15/2024 urina lysis , dipst ick Ketone (reference range: negative mg/dl) Negati ve Not Available [address], [address], 06/15/2024 10:46:33 06/15/19 25 06/15/2024 urina lysis , dipst ick Bilirubin (reference range: negative mg/dl) Negati ve Not Available [address], [address], 06/15/2024 10:46:33 06/15/19 25 06/15/2024 urina lysis , dipst ick Glucose (reference range: negative mg/dl) Negati ve Not Available [address], [address], 06/15/2024 10:46:33 06/15/19 25 06/15/2024 urina lysis , dipst ick Appearance Clear Not Available [address], [address], 06/15/2024 10:46:33 06/15/1906/15/2024 urina lysis , dipst ick Color Yellow Not Available [address], [address], 06/15/2024 10:46:33 07/21/19 25 07/21/2024 CULTU RE URINE urc ===== ===== ===== ===== ===== ===== ===== ===== ===== ===== ===== ===== ===== ===== ===== ===== ===== ===== ===== ===== ===== ===== ===== ===== Speci men NO.: [id number] Exam Statu s: Final Proce dure: [...] Genta micin 4 [place] [id number] Oxida se React ion N Extra Sensi [...] furan toin <=32 S S Not Available [facility] (Lab) [address] [place], [address], 07/23/2024 07:54:30 07/21/19 25 07/21/2024 urina lysis , dipst ick Leukocytes (reference range: negative afshan/ l) Trace Not Available [address], [address], 07/21/2024 12:04:50 07/21/19 25 07/21/2024 urina lysis , dipst ick Nitrite (reference rage: negative mg/dl) positi ve Not Available [address], [address], 07/21/2024 12:04:50 07/21/19 25 07/21/2024 urina lysis , dipst ick Urobilinogen (reference range: 0.2-1 mg/dl) 0.2 Not Available [address], [address], 07/21/2024 12:04:50 07/21/19 25 07/21/2024 urina lysis , dipst ick Protein (reference range: negative mg/dl) Negati ve Not Available [address], [address], 07/21/2024 12:04:50 07/21/19 25 07/21/2024 urina lysis , dipst ick pH (reference range: 5-7) 7.0 Not Available [address], [address], 07/21/2024 12:04:50 07/21/19 25 07/21/2024 urina lysis , dipst ick Blood (reference range: negative Cornelio/ l) Negati ve Not Available [address], [address], 07/21/2024 12:04:50 07/21/19 25 07/21/2024 urina lysis , dipst ick Specific [place] (reference range: 1.005-1.030) 1.010 Not Available [address], [address], 07/21/2024 12:04:50 07/21/19 25 07/21/2024 urina lysis , dipst ick Ketone (reference range: negative mg/dl) Negati ve Not Available [address], [address], 07/21/2024 12:04:50 07/21/19 25 07/21/2024 urina lysis , dipst ick Bilirubin (reference range: negative mg/dl) Negati ve Not Available [address], [address], 07/21/2024 12:04:50 07/21/19 25 07/21/2024 urina lysis , dipst ick Glucose (reference range: negative mg/dl) Negati ve Not Available [address], [address], 07/21/2024 12:04:50 07/21/19 25 07/21/2024 urina lysis , dipst ick Appearance Clear Not Available [address], [address], 07/21/2024 12:04:50 07/21/19 25 07/21/2024 urina lysis , dipst ick Color Pale Yellow Not Available [address], [address], 07/21/2024 12:04:50 09/22/19 25 09/21/2024 URINA LYSIS COMPL ETE/I RIS W/RFX color COLORL ESS Not Available [facility] (Lab) [address] [place], [address], 09/21/2024 19:46:22 09/22/19 25 09/21/2024 URINA LYSIS COMPL ETE/I RIS W/RFX appear CLEAR Not Available [facility] (Lab) [address] [place], [address], 09/21/2024 19:46:22 09/22/19 25 09/21/2024 URINA LYSIS COMPL ETE/I RIS W/RFX specific gravity 1.006 1.001- 1.030 Not Available [facility] (Lab) [address] [place], [address], 09/21/2024 19:46:22 09/22/19 25 09/21/2024 URINA LYSIS COMPL ETE/I RIS W/RFX pH 7.0 pH_un its 5.0-9. 0 Not Available [facility] (Lab) [address] [place], [address], 09/21/2024 19:46:22 09/22/19 25 09/21/2024 URINA LYSIS COMPL ETE/I RIS W/RFX leukocytes 75 afshan/u L negati ve- abnormal Not Available [facility] (Lab) [address] [place], [address], 09/21/2024 19:46:22 09/22/19 25 09/21/2024 URINA LYSIS COMPL ETE/I RIS W/RFX nitrite NEGATI VE negati ve- Not Available [facility] (Lab) [address] [place], [address], 09/21/2024 19:46:22 09/22/19 25 09/21/2024 URINA LYSIS COMPL ETE/I RIS W/RFX protein NEGATI VE mg/dL negati ve- Not Available [facility] (Lab) [address] [place], [address], 09/21/2024 19:46:22 09/22/19 25 09/21/2024 URINA LYSIS COMPL ETE/I RIS W/RFX glucose NORMAL mg/dL normal - Not Available [facility] (Lab) [address] [place], [address], 09/21/2024 19:46:22 09/22/19 25 09/21/2024 URINA LYSIS COMPL ETE/I RIS W/RFX ketones NEGATI VE mg/dL negati ve- Not Available [facility] (Lab) [address] [place], [address], 09/21/2024 19:46:22 09/22/19 25 09/21/2024 URINA LYSIS COMPL ETE/I RIS W/RFX urobilinogen NORMAL mg/dL normal - Not Available [facility] (Lab) [address] [place], [address], 09/21/2024 19:46:22 09/22/19 25 09/21/2024 URINA LYSIS COMPL ETE/I RIS W/RFX bilirubin NEGATI VE mg/dL negati ve- Not Available [facility] (Lab) [address] [place], [address], 09/21/2024 19:46:22 09/22/19 25 09/21/2024 URINA LYSIS COMPL ETE/I RIS W/RFX blood NEGATI VE mg/dL negati ve- Not Available [facility] (Lab) [address] [place], [address], 09/21/2024 19:46:22 09/22/19 25 09/21/2024 URINA LYSIS COMPL ETE/I RIS W/RFX white blood cells 0-8 /i??h pfi?? 0-8 Not Available [facility] (Lab) [address] [place], [address], 09/21/2024 19:46:22 09/22/19 25 09/21/2024 URINA LYSIS COMPL ETE/I RIS W/RFX red blood cells 0-4 /i??h pfi?? 0-4 Not Available [facility] (Lab) [address] [place], [address], 09/21/2024 19:46:22 09/22/19 25 09/21/2024 URINA LYSIS COMPL ETE/I RIS W/RFX bacteria OCCASI ONAL none seen- abnormal Not Available [facility] (Lab) [address] [place], [address], 09/21/2024 19:46:22 09/22/19 25 09/21/2024 URINA LYSIS COMPL ETE/I RIS W/RFX mucous OCCASI ONAL /i??l pfi?? none seen- abnormal Not Available [facility] (Lab) [address] [place], [address], 09/21/2024 19:46:22 09/22/19 25 09/21/2024 URINA LYSIS COMPL ETE/I RIS W/RFX squamous epithelial FEW /i??l pfi?? abnormal Not Available [facility] (Lab) [address] [place], [address], 09/21/2024 19:46:22 09/22/19 25 09/21/2024 URINA LYSIS COMPL ETE/I RIS W/RFX tranistional epithelial FEW /i??l pfi?? abnormal Not Available [facility] ([facility]) [address] [facility] [place], [address], 09/21/2024 19:46:22 09/22/19 25 09/21/2024 CBC/C OMPLE TE BLD COUNT W/DIF F white blood cells 5.4 x10'3 /uL 4.2-10 .8 Not Available [facility] (Lab) [address] [place], [address], 09/21/2024 19:51:16 09/22/19 25 09/21/2024 CBC/C OMPLE TE BLD COUNT W/DIF F red blood cells 4.23 x10'6 /uL 3.80-5 .20 Not Available [facility] (Lab) [address] [place], [address], 09/21/2024 19:51:16 09/22/19 25 09/21/2024 CBC/C OMPLE TE BLD COUNT W/DIF F hemoglobin 13.7 g/dL 12.0-1 5.6 Not Available [facility] (Lab) [address] [place], [address], 09/21/2024 19:51:16 09/22/19 25 09/21/2024 CBC/C OMPLE TE BLD COUNT W/DIF F hematocrit 40.3 % 35.7-4 5.7 Not Available [facility] (Lab) [address] [place], [address], 09/21/2024 19:51:16 09/22/19 25 09/21/2024 CBC/C OMPLE TE BLD COUNT W/DIF F mean red cell volume 95.3 fL 82.0-9 9.0 Not Available [facility] (Lab) [address] [place], [address], 09/21/2024 19:51:16 09/22/19 25 09/21/2024 CBC/C OMPLE TE BLD COUNT W/DIF F mean red cell hemoglobin 32.4 pg 27.0-3 3.0 Not Available [facility] (Lab) [address] [place], [address], 09/21/2024 19:51:16 09/22/19 25 09/21/2024 CBC/C OMPLE TE BLD COUNT W/DIF F mean RBC HGB concentratio n 34.0 g/dL 31.0-3 6.0 Not Available [facility] (Lab) [address] [place], [address], 09/21/2024 19:51:16 09/22/19 25 09/21/2024 CBC/C OMPLE TE BLD COUNT W/DIF F red cell distribution width 14.3 % 11.8-1 5.5 Not Available [facility] (Lab) [address] [place], [address], 09/21/2024 19:51:16 09/22/19 25 09/21/2024 CBC/C OMPLE TE BLD COUNT W/DIF F platelets 289 x10'3 /uL 150-40 0 Not Available [facility] (Lab) [address] [place], [address], 09/21/2024 19:51:16 09/22/19 25 09/21/2024 CBC/C OMPLE TE BLD COUNT W/DIF F mean platelet volume 11.5 fL 9.0-12 .4 Not Available [facility] (Lab) [address] [place], [address], 09/21/2024 19:51:16 09/22/19 25 09/21/2024 CBC/C OMPLE TE BLD COUNT W/DIF F neutrophils 53.1 % 39.0-7 2.0 Not Available [facility] (Lab) [address] [place], [address], 09/21/2024 19:51:16 09/22/19 25 09/21/2024 CBC/C OMPLE TE BLD COUNT W/DIF F lymphocytes 32.1 % 16.0-4 7.0 Not Available [facility] (Lab) [address] [place], [address], 09/21/2024 19:51:16 09/22/19 25 09/21/2024 CBC/C OMPLE TE BLD COUNT W/DIF F monocytes 7.2 % 5.0-12 .0 Not Available [facility] (Lab) [address] [place], [address], 09/21/2024 19:51:16 09/22/1909/21/2024 CBC/C OMPLE TE BLD COUNT W/DIF F eosinophils 5.7 % 1.0-7. 0 Not Available [facility] (Lab) [address] [place], [address], 09/21/2024 19:51:16 09/22/19 25 09/21/2024 CBC/C OMPLE TE BLD COUNT W/DIF F basophils 1.5 % 0.0-2. 0 Not Available [facility] (Lab) [address] [place], [address], 09/21/2024 19:51:16 09/22/19 25 09/21/2024 CBC/C OMPLE TE BLD COUNT W/DIF F immature granulocytes 0.4 % 0.00-0 .50 Not Available [facility] (Lab) [address] [place], [address], 09/21/2024 19:51:16 09/22/19 25 09/21/2024 CBC/C OMPLE TE BLD COUNT W/DIF F neutrophils, absolute count 2.88 x10'3 /uL 1.5-8. 0 Not Available [facility] (Lab) [address] [place], [address], 09/21/2024 19:51:16 09/22/19 25 09/21/2024 CBC/C OMPLE TE BLD COUNT W/DIF F lymphocytes, absolute count 1.74 x10'3 /uL 1.07-3 .43 Not Available [facility] (Lab) [address] [place], [address], 09/21/2024 19:51:16 09/22/1909/21/2024 CBC/C OMPLE TE BLD COUNT W/DIF F monocytes, absolute count 0.39 x10'3 /uL 0.29-0 .99 Not Available [facility] (Lab) [address] [place], [address], 09/21/2024 19:51:16 09/22/1909/21/2024 CBC/C OMPLE TE BLD COUNT W/DIF F eosinophils, absolute count 0.31 x10'3 /uL 0.02-0 .53 Not Available [facility] (Lab) [address] [place], [address], 09/21/2024 19:51:16 09/22/19 25 09/21/2024 CBC/C OMPLE TE BLD COUNT W/DIF F basophils, absolute count 0.08 x10'3 /uL 0.01-0 .08 Not Available [facility] (Lab) [address] [place], [address], 09/21/2024 19:51:16 09/22/19 25 09/21/2024 CBC/C OMPLE TE BLD COUNT W/DIF F immature granulocytes ,absolute 0.02 x10'3 /uL 0.00-0 .05 Not Available [facility] (Lab) [address] [place], [address], 09/21/2024 19:51:16 09/22/19 25 09/21/2024 CBC/C OMPLE TE BLD COUNT W/DIF F nucleated red blood cells 0.0 % -0 Not Available [facility] (Lab) [address] [place], [address], 09/21/2024 19:51:16 09/22/19 25 09/21/2024 CBC/C OMPLE TE BLD COUNT W/DIF F NRBC# 0.00 x10'3 /uL Not Available [facility] (Lab) [address] [place], [address], 09/21/2024 19:51:16 09/22/19 25 09/21/2024 URIC ACID SERUM uric acid 5.1 mg/dL 2.5-6. 2 Not Available [facility] (Lab) [address] [place], [address], 09/21/2024 20:01:35 09/22/19 25 09/21/2024 COMPR EHENS POOL METAB OLIC PANEL sodium 136 mmol/ L 137-14 5 low Not Available [facility] (Lab) [address] [place], [address], 09/21/2024 20:01:41 09/22/19 25 09/21/2024 COMPR EHENS POOL METAB OLIC PANEL potassium 5.0 mmol/ L 3.5-5. 1 Not Available [facility] (Lab) [address] [place], [address], 09/21/2024 20:01:41 09/22/19 25 09/21/2024 COMPR EHENS POOL METAB OLIC PANEL chloride 100 mmol/ L 98-107 Not Available [facility] (Lab) [address] [place], [address], 09/21/2024 20:01:41 09/22/19 25 09/21/2024 COMPR EHENS POOL METAB OLIC PANEL carbon dioxide 25 mmol/ L 22-30 Not Available [facility] (Lab) [address] [place], [address], 09/21/2024 20:01:41 09/22/19 25 09/21/2024 COMPR EHENS POOL METAB OLIC PANEL anion gap 16.0 mmol/ L 14-22 Not Available [facility] (Lab) [address] [place], [address], 09/21/2024 20:01:41 09/22/19 25 09/21/2024 COMPR EHENS POOL METAB OLIC PANEL glucose 100 mg/dL 70-99 high Not Available [facility] ([facility]) [address] [place], [address], 09/21/2024 20:01:41 09/22/19 25 09/21/2024 COMPR EHENS POOL METAB OLIC PANEL BUN 21 mg/dL 8-19 high Not Available [facility] (Lab) [address] [place], [address], 09/21/2024 20:01:41 09/22/19 25 09/21/2024 COMPR EHENS POOL METAB OLIC PANEL creatinine 0.88 mg/dL 0.66-1 .25 Not Available [facility] (Lab) [address] [place], [address], 09/21/2024 20:01:41 09/22/19 09/21/2024 COMPR EHENS POOL METAB OLIC PANEL GFR >60 Refer ence Range : [place] ge GFR Healt hy Adult : >60 [...] calcu lator is avail able on the [facility] websi te: [email or web address] :[email or web address] [email or web address] [email or web address] [email or web address] culat or Not Available [facility] (Lab) [address] [place], [address], 09/21/2024 20:01:41 09/22/19 25 09/21/2024 COMPR EHENS POOL METAB OLIC PANEL alkaline phosphatase 60 U/L 38-126 Not Available [facility] (Lab) [address] [place], [address], 09/21/2024 20:01:41 09/22/19 25 09/21/2024 COMPR EHENS POOL METAB OLIC PANEL alanine aminotransfe rase 41 U/L 0-35 high Not Available [facility] (Lab) [address] [place], [address], 09/21/2024 20:01:41 09/22/19 25 09/21/2024 COMPR EHENS POOL METAB OLIC PANEL aspartate aminotransfe rase 32 U/L 15-37 Not Available [facility] [facility] ([facility] [address] [place], [address], 09/21/2024 20:01:41 09/22/19 25 09/21/2024 COMPR EHENS POOL METAB OLIC PANEL bilirubin, total 0.80 mg/dL 0.20-1 .30 Not Available [facility] (Lab) [address] [place], [address], 09/21/2024 20:01:41 09/22/19 25 09/21/2024 COMPR EHENS POOL METAB OLIC PANEL calcium 11.7 mg/dL 8.4-10 .2 high Not Available [facility] (Lab) [address] [place], [address], 09/21/2024 20:01:41 09/22/19 25 09/21/2024 COMPR EHENS POOL METAB OLIC PANEL total protein 7.9 g/dL 6.3-8. 2 Not Available [facility] (Lab) [address] [place], [address], 09/21/2024 20:01:41 09/22/19 25 09/21/2024 COMPR EHENS POOL METAB OLIC PANEL albumin 5.3 g/dL 3.0-4. 4 high Not Available [facility] (Lab) [address] [place], [address], 09/21/2024 20:01:41 09/22/19 25 09/21/2024 COMPR EHENS POOL METAB OLIC PANEL globulin 2.6 g/dL 2.6-4. 2 Not Available [facility] (Lab) [address] [place], [address], 09/21/2024 20:01:41 09/22/19 25 09/21/2024 COMPR EHENS POOL METAB OLIC PANEL A/G ratio 2.0 ratio 1.0-2. 0 Not Available [facility] (Lab) [address] [place], [address], 09/21/2024 20:01:41 09/22/19 25 09/21/2024 LIPID PANEL cholesterol 186 mg/dL 140-19 9 NIH LUPIS NSUS RECOM MENDA TION FOR GENEVIEVE STERO L: ADULT CHILD LOW RISK: <200 <170 BORDE RLINE : <200- 239 ----- HIGH RISK: >240 >200 Not Available [facility] (Lab) [address] [place], [address], 09/21/2024 20:01:46 09/22/19 25 09/21/2024 LIPID PANEL triglyceride s 155 mg/dL 0-150 high NIH LUPIS NSUS REPOR T RECOM MENDA TION FOR TRIGL YCERI BERNA: ADULT CHILD LOW RISK: <150 ----- BODER LINE: 150-1 99 ----- HIGH RISK: >200 ----- Not Available [facility] (Lab) [address] [place] [address], [address], 09/21/2024 20:01:46 09/22/19 25 09/21/2024 LIPID PANEL HDL cholesterol 43 mg/dL 40- Not Available [facility] (Lab) [address] [place] [address], [address], 09/21/2024 20:01:46 09/22/19 25 09/21/2024 LIPID PANEL [...] WILL NOT BE REPOR GRACIELA. Not Available [facility] (Lab) [address] [place], [address], 09/21/2024 20:01:46 09/22/19 25 09/21/2024 PARAT HY.HO RM(PT H)INT ACT-W /O CA intact parathyroid hormone 111.1 pg/mL 24.0-7 8.0 high Not Available [facility] (Lab) [address] [place], [address], 09/21/2024 20:18:23 09/22/19 25 09/21/2024 VITAM IN D 25-HY DROXY vd25oh 48.2 NG/mL 30-100 Vitam in D Statu s: Defic ient: <20 ng/mL Insuf ficie nt: 20-29 ng/mL Suffi cient : 30-10 0 ng/mL Not Available [facility] (Lab) [address] [place], [address], 09/21/2024 20:18:38 09/22/19 25 09/21/2024 HEMOG LOBIN A1C HA1C 5.6 % 4.0-6. 0 Diabe octavio Scree kayden Crite ankit: <5.7% Consi stent with absen ce of diabe octavio 5.7-6 .4% Consi stent with incre ased risk for diabe octavio (pred iabet es) >OR=6 .5% Consi stent with diabe octavio REFER ENCE: Diabe octavio Care 2016, 39(Hernández ppl.1 ):s13 -s22 Not Available [facility] (Lab) [address] [place], [address], 09/21/2024 20:26:48 09/22/19 25 09/21/2024 TSH W/REF FARHEEN FT4 TSH with reflex free T4 1.650 uIU/m L 0.465- 4.680 Not Available [facility] (Lab) [address] [place], [address], 09/21/2024 20:36:14 09/22/19 25 09/21/2024 urina lysis , dipst ick Leukocytes (reference range: negative afshan/ l) Small Not Available [address], [address], 09/21/2024 14:23:19 09/22/19 25 09/21/2024 urina lysis , dipst ick Nitrite (reference rage: negative mg/dl) negati ve Not Available [address], [address], 09/21/2024 14:23:19 09/22/19 25 09/21/2024 urina lysis , dipst ick Urobilinogen (reference range: 0.2-1 mg/dl) 0.2 Not Available [address], [address], 09/21/2024 14:23:19 09/22/19 25 09/21/2024 urina lysis , dipst ick Protein (reference range: negative mg/dl) Negati ve Not Available [address], [address], 09/21/2024 14:23:19 09/22/19 25 09/21/2024 urina lysis , dipst ick pH (reference range: 5-7) 7.0 Not Available [address], [address], 09/21/2024 14:23:19 09/22/19 25 09/21/2024 urina lysis , dipst ick Blood (reference range: negative Cornelio/ l) Negati ve Not Available [address], [address], 09/21/2024 14:23:19 09/22/19 25 09/21/2024 urina lysis , dipst ick Specific Valmy (reference range: 1.005-1.030) 1.010 Not Available [address], [address], 09/21/2024 14:23:19 09/22/19 25 09/21/2024 urina lysis , dipst ick Ketone (reference range: negative mg/dl) Negati ve Not Available [address], [address], 09/21/2024 14:23:19 09/22/19 25 09/21/2024 urina lysis , dipst ick Bilirubin (reference range: negative mg/dl) Negati ve Not Available [address], [address], 09/21/2024 14:23:19 09/22/19 25 09/21/2024 urina lysis , dipst ick Glucose (reference range: negative mg/dl) Negati ve Not Available [address], [address], 09/21/2024 14:23:19 09/22/19 25 09/21/2024 urina lysis , dipst ick Appearance Clear Not Available [address], [address], 09/21/2024 14:23:19 09/22/19 25 09/21/2024 urina lysis , dipst ick Color Pale Yellow Not Available [address], [address], 09/21/2024 14:23:19 06/15/19 25 06/15/2024 XR, chest , 2 view No observ ation record ed. [address], [place], [address], 07/21/2024 12:00:30 09/17/19 25 09/16/2024 NM, kidne y scan, w/ vascu lar flow + funct ion, singl e, w/o pharm a inter venti on No observ ation record ed. [address], [place], [address], 09/21/2024 14:09:22 10/26/19 25 10/25/2024 XR, kidne y + urete r + bladd er No observ ation record ed. [address], [place], [address], 10/25/2024 14:26:58 11/03/19 25 11/02/2024 XR, kidne y + urete r + bladd er No observ ation record ed. [address], [place], [address], 11/02/2024 15:28:22 12/03/19 25 12/01/2024 XR, kidne y + urete r + bladd er No observ ation record ed. [address], [place], [address], 12/02/2024 10:43:17 Result Notes None recorded. Problems Name Problem SNOMED Code Status Onset Date Resolution Date Notes Provider Name and Address Organization Details Recorded Time Anthony hematuria 294843175 Completed Not Available [facility] 3 07:31:20 Headache 98465585 Completed Daly Pinto, GUS [address] [facility] [address], [place], [address] , [facility] 3 12:00:58 Retinal disorder 59974898 Active Not Available [employer] 3 07:31:20 Depressiv e disorder 40854410 Active Not Available [facility] 3 07:31:21 Hematoma 066913733 Completed Not Available [facility] 3 07:31:21 Furuncle 727142518 Completed Michael Faye MD [address] [address], [place], [address] , [facility] [employer] [facility] 4 10:18:43 Foot pain 36150914 Completed Not Available [facility] 3 07:31:22 Anxiety 36820546 Active Not Available [facility] 3 07:31:22 Upper respirato ry infection 45947994 Completed Not Available [facility] 3 07:31:22 Urinary tract infectiou s disease 56828610 Completed Michael Faye MD [address] [address], [place], [address] , [employer] [facility] [employer] [facility] 4 16:13:03 Sleep apnea 54619777 Active Not Available [facility] 3 07:31:24 Urgent desire to urinate 06826012 Completed Not Available [facility] 3 07:31:24 Skin lesion 07947240 Completed Not Available [facility] 3 07:31:25 Kidney stone 74714313 Completed Not Available [facility] 3 07:31:25 Osteoarth ritis of knee 816739456 Active 2016 Not Available [facility] 3 07:31:20 Environme ntal allergy 381546745 Active 2016 Not Available [facility] 3 07:31:21 Migraine without aura 94530259 Active 2016 Not Available [facility] 3 07:31:22 Varicose veins of lower extremity 93657267 Active 2016 Not Available [facility] 3 07:31:23 Hyperlipi demia 40178551 Active 2016 Not Available [facility] 3 07:31:22 Hyperglyc emia 03310838 Active 2016 Not Available [facility] 3 07:31:24 Sinusitis 01267260 Active 2017 Not Available [facility] 3 07:31:21 Acid reflux 003770736 Active 2018 Not Available [facility] 3 07:31:23 Gastroeso phageal reflux disease 281786102 Active 2019 Not Available [facility] 3 07:31:20 Seasonal allergic rhinitis 706076529 Active 2019 Not Available [facility] 3 07:31:21 Hypertens pool disorder 52124458 Active 2019 Not Available [facility] 3 07:31:21 Bilateral tinnitus 26343776922 02 Active 2019 Not Available [facility] 3 07:31:22 Hypertrig lyceridem ia 534871349 Active 2020 Not Available [facility] 3 07:31:21 Memory impairmen t 658914212 Active 2020 Not Available [facility] 3 07:31:21 Liver enzymes level above reference range 059153158 Active 2020 Not Available [facility] 3 07:31:23 Acute sinusitis 80997329 Active 2020 Not Available [facility] 3 07:31:19 History of thyroid disorder 922102949 Active 2020 Not Available [facility] 3 07:31:20 Postmenop ausal state 29052834 Active 2021 Not Available [facility] 3 07:31:24 Low back pain 871862204 Active 2021 Not Available [facility] 3 07:31:20 Gout 15955908 Active 2021 Not Available [facility] 3 07:31:24 Osteoporo sis 63971833 Active 2021 Not Available [facility] 3 07:31:23 Sciatica 59591886 Active 2021 Not Available [facility] 3 07:31:20 Mixed anxiety and depressiv e disorder 527296506 Active 2021 Not Available [facility] 3 07:31:20 Lumbar spondylos is 926436831 Active 2021 Not Available [facility] 3 07:31:20 Herniatio n of lumbar intervert ebral disc with sciatica 34305849573 4105 Active 2021 Not Available [facility] 3 07:31:22 Obese 318742530 Active 2022 Daly Pinto NP [address], [place], [address] , [employer] 3 11:56:43 Headache 66888380 Active 2022 Daly Pinto NP [address], [place], [address] , [employer] 3 12:00:58 Lumbar radiculop athy 499548511 Active 2022 Michael Faye MD [address], [place], [address] , [employer] 3 17:01:57 Obesity 490799086 Active 2022 Michael Faye MD [address], [place], [address] , [employer] 3 17:02:46 Lipoma of lower leg 315086629 Active 2022 Michael Faye MD [address], [place], [address] , [employer] 3 17:43:42 Idiopathi c hypercalc emia 763967346 Active 2022 Michael Faye MD [address], [place], [address] , [employer] 3 14:31:47 Hyperpara thyroidis m 87373947 Active 2022 Michael Faye MD [address], [place], [address] , [employer] 5 10:26:42 Blood in urine 77774374 Active 2022 Daly Pinto NP [address], [place], [address] , [employer] 3 10:44:02 Abnormal uterine bleeding 27232306862 100 Active 2022 Daly Pinto NP [address], [place], [address] , [employer] 3 10:44:49 Acute urinary tract infection 075191893 Active 2022 Daly Pinto NP [address], [place], [address] , [employer] 3 08:51:54 Dysuria 10783057 Active 2022 Michael Faye MD [address], [place], [address] , [employer] 5 14:23:11 Urinary tract infectiou s disease 97033210 Active 2023 Michael Faye MD [address], [place], [address] , [employer] 4 16:13:03 Bilateral earache 397913968 Active 2023 Michael Faye MD [address], [place], [address] , [employer] 4 16:33:22 Candidal vulvovagi nitis 33131941 Active 2023 Michael Faye MD [address], [place], [address] , [employer] 4 16:37:42 Gouty arthropat hy 224314173 Active 2023 Michael Faye MD [address], [place], [address] , [employer] 4 09:56:46 Polyarthr opathy 80361664 Active 2023 Michael Faye MD [address], [place], [address] , [employer] 4 09:58:59 Obstructi ve sleep apnea syndrome 97219152 Active 2023 Michael Faye MD [address], [place], [address] , [employer] 4 10:07:57 Pain of right knee joint 91578329989 4100 Active 2023 LILLY Beltran [address], [place], [address] , [employer] 4 14:54:22 Hypercalc emia 71414236 Active 2023 LILLY Beltran [address], [place], [address] , [employer] 4 14:58:37 Cough 21669912 Active 2024 Michael Faye MD [address], [place], [address] , [employer] 5 14:35:26 Bronchiti s 85988851 Active 2024 Michael Faye MD [address], [place], [address] , [employer] 5 14:57:50 Muscle strain 62473226 Active 2024 Michael Faye MD [address], [place], [address] , [employer] 5 15:14:02 Problem Notes None recorded. Procedures Surgical History Date Name Laterality Status Provider Name and Address Organization Details Recorded Time 10/27/19 24 Date of Last Pap Smear completed Michael Faye MD [address], [place], [address], [employer] 09/21/2024 14:27:51 09/29/19 24 Medicare Wellness CPT Code, subsequent completed Reji Ashton [facility] [employer] [facility] 09/29/2023 14:15:26 08/29/19 24 Most Recent Mammogram completed Michael Faye MD [address], [place], [address], [facility] [employer] [facility] 09/21/2024 14:27:51 06/18/19 24 Transitional_Care_ Management completed Reji Ashton [facility] [employer] [facility] 06/18/2023 16:22:09 04/03/20 22 Most Recent Bone Density completed Not Available [facility] 07/23/2022 07:26:53 05/25/19 18 Knee Replacement completed Not Available [facility] 07/23/2022 07:26:55 05/25/19 02 repair of ovary completed Not Available [facility] 07/23/2022 07:26:55 05/25/18 92 Cholecystectomy completed Not Available [facility] 07/23/2022 07:26:55 Imaging Results None recorded. Procedure Notes None recorded. Medical Equipment None Reported. Allergies Allergen ID Allergen Name Allergen Category Reaction Reaction Severity Criticality Documentation Date Start Date Code Code System Note Provider Name and Address Organization Details Recorded Time 27043 Substance with sulfonami de structure and antibacte rial mechanism of action (substanc e) medicatio n nausea Not available Not available 07/23/2022 62124 8003 SNOMED Not Available [facility] 3 07:36:13 86986 Zithromax medicatio n other Not available Not available 03/31/2024 4 RxNorm cause s pt to be super jitte ry Michael Faye MD [address], [place], [address], [employer] [facility] [employer] 5 14:58:29 98834 Macrobid medicatio n anaphylax is severe high 06/16/20242024 25488 1 RxNorm state s her throa t close d up with in the hour of takin g it, had to go to ER Yara scanlon [place] [employer] [facility] [employer] [facility] 5 09:32:31 Medications Name Sig Start Date [...] MOUTH EVERY 12 HOURS FOR 7 DAYS 2024 active Not Available Not Available Not Avai lable amoxicill in 500 mg-potass ium clavulana te [...] verbal numeric rating [Score] - Reported Systolic And Diastolic Provider Name and Address Organization Details Last Updated DateTime 5 160.02 cm 41.5 kg/m2 794924. 61 g 97.3 [degF] 74 /min 20 /min 97 % 97 % 3 160/90 mm[Hg] Daly Monte RN [place] - [facility] [employer] 5 10:40:55 Date Recorded Oxygen saturation Oxygen saturation in Arterial blood by Pulse oximetry Systolic And Diastolic Provider Name and Address Organization Details Last Updated DateTime 07/21/2024 96 % 96 % 160/84 mm[Hg] Michael Faye MD [address] [facility], [place], [address], [facility] [employer] [facility] 07/21/2024 12:20:50 Date Recorded Body height Body mass index (BMI) Body weight Body temperature Heart rate Respiratory rate Pain severity - 0-10 verbal numeric rating [Score] - Reported Provider Name and Address Organization Details Last Updated DateTime 5 160.02 cm 41.7 kg/m2 909853. 91 g 97.5 [degF] 74 /min 20 /min 1 Daly Monte RN [facility] [employer] [facility] 5 11:47:05 Date Recorded Body height Body mass index (BMI) Body weight Body temperature Oxygen saturation Oxygen saturation in Arterial blood by Pulse oximetry Heart rate Systolic And Diastolic Provider Name and Address Organization Details Last Updated DateTime 5 160.02 cm 41.4 kg/m2 070207. 82 g 98.2 [degF] 96 % 96 % 72 /min 120/70 mm[Hg] Nely Xiao RN [facility] [employer] [facility] 5 14:53:14 Date Recorded Body height Body mass index (BMI) Body weight Body temperature Oxygen saturation Oxygen saturation in Arterial blood by Pulse oximetry Heart rate Systolic And Diastolic Provider Name and Address Organization Details Last Updated DateTime 5 160.02 cm 40.6 kg/m2 660599. 05 g 98.1 [degF] 97 % 97 % 81 /min 142/70 mm[Hg] Nely Xiao RN [facility] [employer] [facility] 5 14:07:59 Date Recorded Body height Body mass index (BMI) Body weight Body temperature Oxygen saturation Oxygen saturation in Arterial blood by Pulse oximetry Heart rate Systolic And Diastolic Provider Name and Address Organization Details Last Updated DateTime 5 160.02 cm 41 kg/m2 288666. 89 g 97.7 [degF] 98 % 98 % 76 /min 140/64 mm[Hg] Nely Xiao RN [facility] [employer] [facility] 5 10:19:26 Social History Question Answer Notes LastModified by Organizat ion Details LastModified Time Tobacco Smoking Status Never Smoker Elida scanlon, [facility] [employer] [facility] 06/18/2023 16:10:12 Do You Have An Advance Directive? Yes [id number] Information not available 07/23/2022 Are You Blind Or Do You Have Difficulty Seeing? No Information not available 06/18/2023 Is Blood Transfusion Acceptable In An Emergency? Yes Information not available 06/18/2023 What Is Your Level Of Caffeine Consumption? Moderate [id number] Information not available 07/23/2022 How Much Tobacco Do You Chew? None [id number] Information not available 07/23/2022 What Is Your [...] Type Of Diet Are You Following? GLUTENFREE [email or web address] Information not available 12/30/2023 Which Illicit Or Recreational Drugs Have You Used? None Information not available 06/18/2023 What Is The Highest Grade Or Level Of School You Have Completed Or The Highest Degree You Have Received? [id number] Information not available 06/18/2023 How Many Days [...] not available 06/18/2023 Where Do You Live? [facility] Information not available 06/18/2023 Advance Directive- Providers [...] Do You Have A Medical Power Of Paper Cone Maker? No Information not available 06/18/2023 What Was [...] is your level of alcohol consumption? None [id number] Information not available 07/23/2022 Are you currently [...] 06/18/2023 What is your exercise level? Moderate [email or web address] Information not available 12/30/2023 Mental Status Question Answer Note LastModified by Organizat ion Details LastModified Time Do you feel stressed (tense, restless, nervous, or anxious, or unable to sleep at night)? [id number] Information not available 11/09/2023 Do you have difficulty concentrating, remembering or making decisions? No Information no t available 06/18/2023 Family History Relationship Description Onset Age of this Age Resolved Age Notes LastModified by Organization Details LastModified Time Father No current problems or disability [id number] Not available 07/23/2022 07:26:58 Mother No current problems or disability [id number] Not available 07/23/2022 07:26:58 Medical History Condition [...] virus, quadrivalent, preservative 8 completed Not Available [facility] 07/23/2022 07:36:04 Influenza, split virus, trivalent, preservative 5 completed Not Available [facility] 07/23/2022 07:36:04 zoster live 5 completed Not Available [facility] 07/23/2022 07:36:04 Influenza, split virus, trivalent, PF 4 completed Not Available [facility] 07/23/2022 07:36:04 Pneumococcal conjugate PCV 13 0 completed Not Available [facility] 07/23/2022 07:36:05 Influenza, high-dose, quadrivalent, PF 0 completed Not Available [facility] 07/23/2022 07:36:05 Tdap 8 completed Not Available [facility] 07/23/2022 07:36:05 Influenza, split virus, quadrivalent, PF 6 completed Not Available [facility] 07/23/2022 07:36:05 Past Encounters Encounter ID Performer Location Encounter Start Date Encounter Closed Date Diagnosis/Indication Diagnosis SNOMED-CT Code Diagnosis ICD10 Code Diagnosis Note [id number] Daly Pinto NP [facility] [place] [address] [place] [address] 07/24/2020 00:00:00 07/24/2020 09:44:41 [id number] Michael Faye MD [facility] [address] [place] [address] 10/31/2020 00:00:00 10/31/2020 09:16:25 [id number] Michael Faye MD [facility] [address] [place] [address] 11/20/2020 00:00:00 11/20/2020 12:21:01 [id number] Michael Faye MD [facility] [place] [address] [place] [address] 02/13/2021 00:00:00 02/13/2021 14:33:22 [id number] Michael Faye MD [facility] [place] [address] [place] [address] 02/26/2021 00:00:00 02/26/2021 14:32:03 [id number] Michael Faye MD [facility] [place] [address] [place] [address] 07/24/2021 00:00:00 07/24/2021 14:56:44 [id number] Michael Faye MD [facility] [place] [address] [place] [address] 10/09/2021 00:00:00 10/09/2021 14:38:30 [id number] Daly Pinto NP [facility] [place] [address] [place] [address] 02/26/2022 00:00:00 02/26/2022 10:42:26 [id number] Micahel Faye MD [facility] [place] [address] [place] [address] 03/18/2022 00:00:00 03/19/2022 15:55:39 [id number] Michael Faye MD [facility] [place] [address] [place] [address] 04/29/2022 00:00:00 04/29/2022 18:09:05 [id number] Michael Faye MD [facility] [place] [address] [place] [address] 05/06/2022 00:00:00 05/06/2022 15:25:01 [id number] Daly Pinto NP [address] [address] 08/06/2022 11:17:09 08/06/2022 12:50:33 Hyperlipidemia 18368009 E78.5 Low fat diet. Statins cause pain. 02/27/22 last lab result. Essential hypertension 31567012 I10 amlodipine 5 mg po daily.ASA 81 mg po dailyLosar puckett 100 mg po daily.tria mterene 37.5 mg-hctz25 mg po daily. (this can increase gout flare, so stopped and started on losartan only) Osteoporosis 63412410 M8 1.0 alendronat e 70 mg po weekly pt stopped. Wants to follow Dr. Sims holistic provider and be on vitamins.M eloxicam 15 mg po daily.Tram adol 50 mg po tid prn- pt trying to wean off. Acid reflux 922521636 K2 1.9 famotidine 20 mg po daily. Sleep apnea 70543857 G47 .30 Gout 79712427 M10.9 allopurino l 100 mg po daily. Seasonal a llergic rhinitis 894495268 J30.2 cetirizine 10 mg po daily.Flon ase prn Mixed anxi ety and depressive disorder 629341769 F41.8 Pt weaned herself off the lexapro. Hydroxyzin e prn use. Sciatica 15423299 M54.32 cyclobenza shalini 10 mg po tid prn.Gabape ntin 300 mg po nightly. Obese 936472329 E66.9 Diet and exercise. Wegovy and phentermin e discussed. Phentermin e 15 mg po daily. Headache 28039830 R51.9 [id number] Michael Faye MD [address] [address] 08/07/2022 16:38:36 08/07/2022 17:44:28 Cramp in lower limb 369590792 R25.2 B/L Lumbar radiculopathy 128 262278 M54.16 Gout 26678121 M10.9 Obesity 079769117 E66.9 Lipoma of lower leg 1890 54697 D17.24 Lt [id number] Daly Pinto NP [address] [address] 1 09/09/2022 09:34:15 09/09/2022 10:58:16 Blood in urine 05937398 R31.9 Sending urine for culture. Blood with wiping- no periods for 15 years. Abnormal u terine bleeding 9359637964 9100 N93.9 referring to remote encoding center manager- pt to find provider that accepts insurance. Obese 738187146 E66.9 Diet and exercise. Phentermin e 15 mg po daily. Down 2 lbs. Would like to continue. [id number] Daly Pinto NP [address] [address] 1 10/09/2022 09:13:04 10/09/2022 10:05:37 Obese 549515703 E66.9 Diet and exercise. Phentermin e 15 mg po daily. Down 2 lbs. Would like to continue.I LPMP last fill 09/09/22.Ph entermine 37.5 mg po daily. Essential hypertension 75417405 I10 amlodipine 5 mg po daily.ASA 81 mg po dailyLosar puckett 100 mg po daily.tria mterene 37.5 mg-hctz25 mg po daily. (this can increase gout flare, so stopped and started on losartan only) Gastroesop hageal reflux disease 013072321 K21.9 [id number] Daly Pinto NP [address] [address] 10/24/2022 10:41:24 10/24/2022 11:44:26 Dysuria 54488313 R30.0 R30.9 Patient was started on antibiotic and advised to increase water intake.Cul ture sent.Urina lysis in office +nitrites [id number] Daly Pinto NP [address] [address] 01/21/2023 13:58:46 01/21/2023 18:03:00 Gout 58387905 M10.9 allopurino l 200 mg po daily. Seeing Dr. Becerra. Sleep apnea 47042438 G47 .30 CPAP Acid reflux 642225803 K2 1.9 famotidine 20 mg po daily. Hyperparathyroidism 6699 9008 E21.3 referred to endo, but patient cancelled. Osteoporosis 02701663 M8 1.0 alendronat e 70 mg po weekly pt stopped. Wants to follow Dr. Sims holistic provider and be on vitamins.M eloxicam 15 mg po daily.Tram adol 50 mg po tid prn- pt trying to wean off. Not able to yet- trying to lose weight. Essential hypertension 09663862 I10 amlodipine 5 mg po daily.ASA 81 mg po dailyLosar puckett 100 mg po daily.tria mterene 37.5 mg-hctz25 mg po daily. (this can increase gout flare, so pt monitoring ) Migraine without aura 56 395783 G43.009 Hyperlipidemia 77065727 E78.5 Low fat diet. Statins cause pain. 02/27/22 last lab result. Anxiety 89831361 F41.9 Obese 488424469 E66.9 Diet and exercise. Lumbar spondylosis 96634 0009 M47.896 Osteoarthr itis of knee 477289870 M17.9 [id number] Michael Faye MD [address] [address] 06/18/2023 16:09:07 06/18/2023 17:00:32 Seen in emergency clinic 648276891 Z76.89 Recent ED records reviewed. Urinary tr act infectious disease 52179858 N39.0 Transition of care 57197 00433 105 Z75.8 Sinusitis 19210974 J32.9 Bilateral earache 656877 003 H92.03 Candidal vulvovaginitis 26116088 B37.31 Essential hypertension 70387685 I10 Gout 28510832 M10.9 Obesity 417977361 E66.9 [id number] Michael Faye MD [address] [address] 1 09/02/2023 09:43:47 09/02/2023 10:22:40 Hypertensive disorder 55139983 I10 Gouty arthropathy 913637 008 M10.09 Gynecologi c examination 69067608 Z01.419 Depressive disorder 3548 9007 F32.A Polyarthropathy 65901864 M13.0 Obesity 809092821 E66.9 Osteoporosis 28505674 M8 1.0 Screening mammography 24 008164 Z12.31 Screening for malignant neoplasm of colon 957383833 Z12.11 Urinary tr act infectious disease 40294157 N39.0 Obstructiv e sleep apnea syndrome 59598319 G47.33 [id number] Michael Faye MD [address] [address] 09/29/2023 14:13:02 09/29/2023 15:00:22 Hypertensive disorder 51755751 I10 Gouty arthropathy 243761 008 M10.09 Depressive disorder 3548 9007 F32.A Polyarthropathy 81416180 M13.0 Obesity 840119361 E66.9 Osteoporosis 23861764 M8 1.0 Obstructiv e sleep apnea syndrome 00861777 G47.33 Adult heal th examination 256800801 Z00.00 Screening for disorder 144978271 Z13.9 Hyperlipidemia 96064749 E78.5 Liver enzy mes level above reference range 119356151 R74.01 Idiopathic hypercalcemia 687840881 E83.52 Essential hypertension 34853465 I10 [id number] Michael Faye MD [address] [address] 11/09/2023 14:20:26 11/09/2023 15:06:36 Pain of right knee joint 1199361944 63765 M25.561 Hypercalcemia 37393732 E 83.52 [id number] Michael Faye MD [address] [address] 1 12/22/2023 09:14:13 12/22/2023 09:30:39 [id number] Michael Faye MD [address] [address] 12/30/2023 09:42:46 12/30/2023 10:33:19 Hypertensive disorder 51014176 I10 Gouty arthropathy 580701 008 M10.09 Depressive disorder 3548 9007 F32.A Polyarthropathy 82249660 M13.0 Obesity 377416911 E66.9 Osteoporosis 45822189 M8 1.0 Obstructiv e sleep apnea syndrome 52094836 G47.33 Hyperlipidemia 02299454 E78.5 Liver enzy mes level above reference range 779310995 R74.01 Idiopathic hypercalcemia 585015097 E83.52 Osteoarthr itis of knee 774244803 M17.9 [id number] Michael Faye MD [address] [address] 03/31/2024 09:38:14 03/31/2024 10:14:55 Idiopathic hypercalcemia 730811755 E83.52 Gouty arthropathy 718921 008 M10.09 Hypertensive disorder 38 533232 I10 Depressive disorder 3548 9007 F32.A Polyarthropathy 86428522 M13.0 Obesity 295908082 E66.9 Osteoporosis 17506073 M8 1.0 Obstructiv e sleep apnea syndrome 31607727 G47.33 Hyperlipidemia 05071646 E78.5 Liver enzy mes level above reference range 707097468 R74.01 Osteoarthr itis of knee 087357633 M17.9 [id number] Michael Faye MD [address] [address] 06/15/2024 10:16:28 06/15/2024 10:56:03 Acute urinary tract infection 440429471 N39.0 hx of sepsis related to UTI [id number] Michael Faye MD [address] [address] 07/21/2024 11:36:24 07/21/2024 12:34:55 Gouty arthropathy 976796560 M10.09 Idiopathic hypercalcemia 107424807 E83.52 Hypertensive disorder 38 579493 I10 Depressive disorder 3548 9007 F32.A Polyarthropathy 23574464 M13.0 Obesity 967432183 E66.9 Osteoporosis 84271272 M8 1.0 Obstructiv e sleep apnea syndrome 60440157 G47.33 Hyperlipidemia 77190353 E78.5 Liver enzy mes level above reference range 483119414 R74.01 Osteoarthr itis of knee 695780368 M17.9 Blood in urine 63374295 R31.9 Dysuria 37731416 R30.0 [id number] Michael Faye MD [place] [address] 1 08/17/2024 14:29:59 08/17/2024 15:04:55 Cough 10560046 R05.9 Bronchitis 04770289 J40 Muscle strain 84739748 T 14.8XXA [id number] Michael Faye MD [address] [address] 1 09/21/2024 13:53:04 09/21/2024 14:42:12 Gouty arthropathy 717948296 M10.09 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 Hypertensive disorder 38 320770 I10 Depressive disorder 3548 9007 F32.A 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 Obesity 906802684 E66.9 Osteoporosis 22902290 M8 1.0 Obstructiv e sleep apnea syndrome 03205192 G47.33 Hyperlipidemia 34893776 E78.5 Liver enzy mes level above reference range 653019149 R74.01 Osteoarthr itis of knee 375338727 M17.9 Dysuria 83671265 R30.0 [id number] Michael Faye MD [address] [address] 10/05/2024 10:11:13 10/05/2024 10:36:25 Hypertensive disorder 40398780 I10 Gouty arthropathy 565903 008 M10.09 Idiopathic hypercalcemia 356589636 E83.52 Depressive disorder 3548 9007 F32.A Polyarthropathy 88713982 M13.0 Obesity 059041023 E66.9 Osteoporosis 50839947 M8 1.0 Obstructiv e sleep apnea syndrome 38877816 G47.33 Hyperlipidemia 98368396 E78.5 Liver enzy mes level above reference range 090799722 R74.01 resolved Osteoarthr itis of knee 752234100 M17.9 Hyperparathyroidism 6699 9008 E21.3 Health Concerns Section Related Observation LastModified by Organization Detai ls LastModified Time None Recorded Concern Status LastModified by Organization Details LastModified Time None Recorded Advance Directives Directive Y: Payers Insurance Date Sequence Insurance Name Policy Number Policy Dunham Covered Member ID Dunham Member ID Guarantor Name 10/04/2024 1 [facility] (MEDICARE REPLACEMENT/A DVANTAGE - HMO) [id number] Rody Monson [id number] Rody Monson Notes Date Note Type Note Provider Name and Address Organization Details Recorded Time 06/15/2024 text/html Rody Monson is a 68 year old female patient here today for urinary concerns She states she gets UTIs frequently She noticed blood in her urine last night, pelvic pain, pressure, urgency LILLY Beltran [address] [facility], [facility] [address], [place], [address], docplanner 06/15/2024 10:51:32 07/21/2024 text/html FUV + ACV: [...] supplements by them. Michael Faye MD [address] [facility], [address], [place], [address], docplanner 07/21/2024 14:54:26 08/17/2024 text/html ACV: C/o cough, congestion, drainage for last 3 weeks, on/off. Pt has been doing otc meds and its still not getting better. Due to cough, she is c/o middle back area pain too. Denies any recent fall/trauma. Michael Faye MD [address], [address], [place], [address], [employer] [facility] [employer] 08/17/2024 15:14:28 09/21/2024 text/html Pt is here for h er annual exam. Doing overall better. Denies any problem with meds. Denies any new concern. Still has lot of urinary issues and she called yesterday to be started on Amoxicillin for it. Pt is f/u with Uro at [place] for her recurrent UTIs and kidney stones [...] Faye MD [address], [address], [place], [address], docplanner 09/21/2024 14:29:00 10/05/2024 text/html Pt is here for f /u on her annual labs. Doing overall better. Denies any problem with meds. Denies any new concern. Pt is f/u with Uro at [place] for her recurrent UTIs and kidney stones [...] Faye MD [address], [address], [place], [address], [employer] [facility] [employer] 10/05/2024 10:32:33 OBGyn Episode No OBEpisode recorded.
--- OUTSIDE RECORDS SUMMARY | 2024-12-14 14:54 | XMS_ITS | Clinical Summary ---
Author Organization [facility] Address [facility] [place] [address] Care Team Providers Care Food Service Utility Worker Name Role Phone Unavailable Primary Care Provider [...]
--- OUTSIDE RECORDS SUMMARY | 2024-12-14 14:54 | XMS_ITS | Clinical Summary ---
Author Organization [facility] Address [address] [place] [address] Phone Care Team Providers Care Refractory Grinder Operator Name Role Phone Daly Pinto NP Primary Care Provider [phone] Allergies Active Allergy Reactions Criticality Noted Date [...] exists Insurance [employer] MEDICARE Care Teams Refractory Grinder Operator Relationship Specialty Start Date End Date Daly Pinto NP [address] [address] PCP - General Family Medicine 10/19/18
--- OUTSIDE RECORDS SUMMARY | 2024-12-14 14:54 | XMS_ITS | Clinical Summary ---
Author Organization [facility] Address [address] [place] [address] Phone Care Team Providers Care Case Management Manager Name Role Phone Daly Pinto LEASING PROPERTY MANAGER, BAKERY MANAGER Primary Care Pro vider Medications Aspirin 81 [...] Comments Blood Pressure 130/86 04/08/2019 8:56 AM STOVE MECHANIC Pulse 70 04/08/2019 8:56 AM STOVE MECHANIC Temperature - - Respiratory Rate - - Oxygen Saturation 98% 04/08/2019 8:56 AM STOVE MECHANIC Inhaled Oxygen Concentration - - Weight 108 kg (238 lb) 04/08/2019 8:56 AM STOVE MECHANIC Height 160 cm (5' 3) 04/08/2019 8:56 AM STOVE MECHANIC Body Mass Index 42.16 04/08/2019 8:56 AM STOVE MECHANIC Plan of Treatment Health Maintenance Due Date [...] Recently Relevant to Health Maintenance Insurance [facility] Care Teams Case Management Manager Relationship Specialty Start Date End Date Daly Pinto APRN, BAKERY MANAGER [address] [place] [address] PCP - General Certified Nurse Practitioner 11/02/18
== END 2024-12-14 14:48 | disposition home or self-care (01) ==
PROVIDERS: PCP Family Medicine; Visit Provider Urology
DX: N20.1 Calculus of ureter (principal)
CPT/HCPCS: 74176

== ENCOUNTER 2025-03-08 12:46 | Outpatient (CLI) | payer MEDICARE, SELFPAY ==
--- OUTSIDE RECORDS SUMMARY | 2009-04-02 10:15 | XMS_ITS | Continuity of Care Document ---
Author Organization [facility] Address [address] [place] [address] Phone Care Team Providers Care Enameler Name Role Phone Tomas Clayton Unavailable Unavailable Procedures Procedure Date Eye Exam Established Pt Ophthalmoscopy, Subsequent Office Consultation Ophthalmoscopy Advance Directives Directive Yes / No Effective Date File Name No Information Encounters Encounter Description Practice Location Reason(s) For Visit Diagnoses Date Provider Providers Copied on Encounter [facility], [address] [place] [address] [address], [place], [place], [id number], tel:[phone] [facility] No Information 9 9 Matilde Marin. [address] [place], [place], [facility], . [phone] Referring Provider: Tomas Berg, 12 [place], [place], [facility]. tel:[phone] Office Consultation [facility], [address] [place] [address] [address], [place], [place], [id number], tel:[phone] [facility] No Information [address]. [address] [place], [place], [facility], [place]. tel:[phone] Referring Provider: Marcio Lagunas, [address], [place], [place], [facility]. tel:[phone] Family History Family Member Type Diagnosis Age At Onset No Information Payers Payer name Insurance type Covered democrat ID Authoriza tion(s) No Information Social History [...]
[2025-03-08 13:39] LABS: Anion Gap 9 mmol/L (4-12); Blood Urea Nitrogen 25 mg/dL (7-17); Calcium 10.7 mg/dL (8.4-10.2); Carbon Dioxide 28 mmol/L (22-30); Chloride 101 mmol/L (98-107); Estimated Glomerular Filt Rate 55; Glucose 97 mg/dL (65-110); Potassium 3.9 mmol/L (3.4-5.0); Sodium 138 mmol/L (137-145)
--- OUTSIDE RECORDS SUMMARY | 2025-03-08 14:35 | XMS_ITS | Clinical Summary ---
Author Organization [facility] Address [facility] [place] [address] Care Team Providers Care Basketball Scout Name Role Phone Unavailable Primary Care Provider [...] COVID-19 Vaccine ( - 2023-2 5 season) 2025 Influenza Adult (#1) 2025 RSV Immunization or 60+ Years (1 - [...]
--- OUTSIDE RECORDS SUMMARY | 2025-03-08 14:35 | XMS_ITS | Data Portability ---
Author Organization [place] [employer], Main Office Address [address] [place] [address] Care Team Providers Care Chief Accountant Name Role Phone FAYEMICHAEL FRANCO Primary Care Provider [phone] Assessment Encounter Date Assessment Date Assessment LastModified [...] in 2-3 months. Annual labs in 09/16. [email or web address] Not available 07/21/2024 12:22:19 09/21/2024 09/21/2024 68 [...] per schedule. Cont f/u with Uro at [facility] as per schedule. Cont f/u with Ophtho [...] in 2-3 weeks. Annual labs in 09/17. [email or web address] Not available 09/21/2024 14:27:40 10/05/2024 10/05/2024 68 [...] per schedule. Cont f/u with Uro at [facility] as per schedule. Cont f/u with Ophtho [...] Lipids in 02/16. Annual labs in 09/17. [email or web address] Not available 10/05/2024 10:31:44 02/08/2025 02/08/2025 69 yo F with - HYPERPARATHYROIDIS M, new [...] per schedule. Cont f/u with Uro at [facility] as per schedule. Cont f/u with Ophtho [...] got 2 doses. F/u in 3 months. Lipids in 05/18. Annual labs in 09/17. [email or web address] Not available 02/08/2025 10:29:21 Plan of Treatment Reminders Order Date Submit Date Provider Last Modified By Organization Details Last Modified Time Details Appointments Any 15 2024 08:30A Odin Faye MD Not available Not available Not available Lab urinalysi s, dipstick [address] [facility], [address] [place] [address], [address], 02/08/2025 10:03:34 culture, urine [address] (Lab), [address] [place], [address], 02/08/2025 10:20:09 lipid panel, serum 2024 025 [facility] (Lab), [address] [place], [address], 02/08/2025 10:03:34 lipid panel, serum [email or web address] [place] [address] (Lab), [address] [place], [address], 01/31/2025 14:30:14 PTH (parathyr oid hormone), intact + calcium, serum or plasma [address] (Lab), [address] [place], [address], 09/28/2024 10:09:27 urinalysi s, dipstick 2024 025 [facility], [address] [place] [address], [address], 09/21/2024 14:45:15 CBC w/ auto diff [address] (Lab), [address] [place], [address], 09/21/2024 14:49:44 CMP, serum or plasma 2024 025 [facility] (Lab), [address] [place], [address], 09/21/2024 20:01:42 urinalysi s complete, reflex culture [address] (Lab), [address] [place], [address], 09/21/2024 14:48:30 uric acid, serum or plasma 2024 025 [facility] (Lab), [address] [place], [address], 09/21/2024 20:01:35 lipid panel, serum 2024 025 [facility] (Lab), [address] [place], [address], 09/21/2024 20:01:46 TSH, serum or plasma 2024 025 [facility] (Lab), [address] [place], [address], 09/21/2024 20:36:14 glycohemo globin, total, blood 2024 025 [facility] (Lab), [address] [place], [address], 09/21/2024 20:26:48 vitamin D, 25-hydrox y, total, serum 2024 025 [email or web address] [facility] (Lab), [address] [place], [address], 09/28/2024 10:09:27 urinalysi s, dipstick 2024 025 [facility], [address] [facility], [place], [address], 07/21/2024 12:23:41 culture, urine 2024 025 [facility] (Lab), [address] [place], [address], 07/22/2024 07:44:27 Referral endocrino logy referral - [place]. Please call patient to schedule an appointme nt. Thank you. 2024 025 [email or web address] Madeleine Mcbride MD, [address], [place], [address], 01/05/2025 09:27:53 urologist referral - Recurrent UTIs ++ Please call patient to schedule an appointme nt with Ap Greco. Thank you. 2024 025 [email or web address] [facility], [address] [place] [address] [address], [place], [address], 10/21/2024 09:33:25 Procedures None recorded. Surgeries None recorded. Imaging None recorded. Medication Orders phenazopy ridine 200 mg tablet 2024 025 [facility], [address], [place], [address], 02/22/2025 05:02:14 amoxicill in 875 mg-potass ium clavulana te 125 mg tablet 2024 025 [facility], [address], [place], [address], 02/08/2025 10:05:55 alendrona te 70 mg tablet 2024 025 [facility], [address], [place], [address], 02/08/2025 10:03:49 amlodipin e 5 mg tablet 2024 025 [facility], [address], [place], [address], 02/08/2025 10:03:49 losartan 100 mg tablet 2024 025 [facility], [address], [place], [address], 02/08/2025 10:03:47 triamtere ne 37.5 mg-hydroc hlorothia zide 25 mg capsule 2024 025 [facility], [address], [place], [address], 02/08/2025 10:03:48 rosuvasta tin 10 mg tablet 2024 025 [facility], [address], [place], [address], 02/08/2025 10:03:47 allopurin ol 300 mg tablet 2024 025 [facility], [address], [place], [address], 02/08/2025 10:03:50 meloxicam 7.5 mg tablet 2024 025 [facility], [address], [place], [place], [address], 02/08/2025 10:03:49 escitalop marty 10 mg tablet 2024 [facility], [address], [place], [place], [address], 02/08/2025 10:03:49 alendrona te 70 mg tablet 2024 [facility], [address], [place], [address], 10/05/2024 10:27:49 amlodipin e 5 mg tablet 2024 [facility], [address], [place], [place], [address], 10/05/2024 10:27:50 losartan 100 mg tablet 2024 [facility], [address], [place], [place], [address], 10/05/2024 10:27:46 triamtere ne 37.5 mg-hydroc hlorothia zide 25 mg capsule 2024 [facility], [address], [place], [address], 10/05/2024 10:27:50 rosuvasta tin 10 mg tablet 2024 [facility], [address], [place], [address], 10/05/2024 10:27:47 allopurin ol 300 mg tablet 2024 [facility], [address], [place], [place], [address], 10/05/2024 10:27:47 meloxicam 7.5 mg tablet 2024 [facility], [address], [place], [address], 10/05/2024 10:27:47 escitalop marty 10 mg tablet 2024 [facility], [address], [place], [address], 10/05/2024 10:27:49 alendrona te 70 mg tablet 2024 [facility], [address], [place], [address], 09/21/2024 14:15:45 amlodipin e 5 mg tablet 2024 [facility], [address], [place], [place], [address], 09/21/2024 14:15:41 losartan 100 mg tablet 2024 025 [facility], [address], [place], [place], [address], 09/21/2024 14:15:43 triamtere ne 37.5 mg-hydroc hlorothia zide 25 mg capsule 2024 025 [facility], [address], [place], [address], 09/21/2024 14:15:42 allopurin ol 300 mg tablet 2024 025 [facility], [address], [place], [address], 09/21/2024 14:15:41 rosuvasta tin 5 mg tablet [email or web address] [place] [address] Pharmacy [address], [address], [place], [place], [address], 10/05/2024 10:30:40 meloxicam 7.5 mg tablet [address] [facility], [address], [place], [address], 09/21/2024 14:17:29 escitalop marty 10 mg tablet 2024 [facility], [address], [place], [address], 09/21/2024 14:15:42 azithromy poli 250 mg tablet 2024 [facility], [address], [place], [place], [address], 08/17/2024 15:00:30 prednison e 10 mg tablet 2024 [facility], [address], [place], [place], [address], 08/17/2024 15:00:29 albuterol sulfate HFA 90 mcg/actua tion aerosol inhaler [address] [facility], [address], [place], [address], 08/17/2024 15:01:31 benzonata te 200 mg capsule 2024 [facility], [address], [place], [place], [address], 08/17/2024 15:00:30 cephalexi n 500 mg capsule [address] [facility], [address], [place], [address], 08/17/2024 14:35:51 alendrona te 70 mg tablet 2024 [facility], [address], [place], [address], 07/21/2024 12:05:25 losartan 100 mg tablet 2024 [facility], [address], [place], [address], 07/21/2024 12:05:30 triamtere ne 37.5 mg-hydroc hlorothia zide 25 mg capsule 2024 025 [facility], [address], [place], [address], 07/21/2024 12:05:23 amlodipin e 10 mg tablet 2024 [facility], [address], [place], [address], 07/21/2024 12:08:14 allopurin ol 300 mg tablet [address] [facility], [address], [place], [address], 07/21/2024 12:11:32 rosuvasta tin 5 mg tablet [address] [facility], [address], [place], [address], 10/05/2024 10:30:40 meloxicam 7.5 mg tablet 2024 025 [facility], [address], [place], [address], 07/21/2024 12:05:27 escitalop marty 10 mg tablet 2024 025 [facility], [address], [place], [address], 07/21/2024 12:05:26 Patient TargetsNo targets recorded. Patient Instructions Encounter Date Encounter Id Patient Instructions Last Modified By Organization Details Last Modified Time 07/21/2024 [id number] Starting a Weight-Loss Plan: Care Instructions [email or web address] Not available 07/21/2024 12:05:10 09/21/2024 [id number] Starting a Weight-Loss Plan: Care Instructions Not available 09/21/2024 14:15:29 10/05/2024 [id number] Starting a Weight-Loss Plan: Care Instructions [email or web address] Not available 10/05/2024 10:27:38 02/08/2025 [id number] Starting a Weight-Loss Plan: Care Instructions Not available 02/08/2025 10:03:34 Reason for Referral Urologist Referral for Blood in urine Recurrent UTIs ++ Please call patient to schedule an appointment with Ap Greco. Thank you. Referring Physician: Michael Faye [facility], Encounter Date: 07/21/2024 Endocrinology Referral for H yperparathyroidism [place], [place]. Please call patient to schedule an appointment. Thank you. Referring Physician: Michael Faye [facility], Encounter Date: 10/05/2024 Results Created Date Observation Date Name Description Value Unit Range Abnormal Flag Note LastModifiedBy Organization Detail LastModifiedTime 07/21/19 25 07/21/2024 CULTU RE URINE urc ===== ===== ===== ===== ===== ===== ===== ===== ===== ===== ===== ===== ===== ===== ===== ===== ===== ===== ===== ===== ===== ===== ===== ===== Speci men NO.: [id number] Exam Statu s: Final Proce dure: [...] G[place] [address] [place] [id number] Oxida se React ion N Extra Sensi [...] furan toin <=32 S S Not Available [facility] (Lab) [address] [place], [address], 07/23/2024 07:54:30 07/21/19 25 07/21/2024 urina lysis , dipst ick Leukocytes (reference range: negative afshan/ l) Trace Not Available [facility] [address], [address], 07/21/2024 12:04:50 07/21/19 25 07/21/2024 urina lysis , dipst ick Nitrite (reference rage: negative mg/dl) positi ve Not Available [address], [address], 07/21/2024 12:04:50 07/21/19 25 07/21/2024 urina lysis , dipst ick Urobilinogen (reference range: 0.2-1 mg/dl) 0.2 Not Available [address], [address], 07/21/2024 12:04:50 07/21/19 25 07/21/2024 urina lysis , dipst ick Protein (reference range: negative mg/dl) Negati ve Not Available [address], [address], 07/21/2024 12:04:50 07/21/19 25 07/21/2024 urina lysis , dipst ick pH (reference range: 5-7) 7.0 Not Available [address], [address], 07/21/2024 12:04:50 07/21/19 25 07/21/2024 urina lysis , dipst ick Blood (reference range: negative Cornelio/ l) Negati ve Not Available [address], [address], 07/21/2024 12:04:50 07/21/19 25 07/21/2024 urina lysis , dipst ick Specific [place] (reference range: 1.005-1.030) 1.010 Not Available [address], [address], 07/21/2024 12:04:50 07/21/19 25 07/21/2024 urina lysis , dipst ick Ketone (reference range: negative mg/dl) Negati ve Not Available [address], [address], 07/21/2024 12:04:50 07/21/19 25 07/21/2024 urina lysis , dipst ick Bilirubin (reference range: negative mg/dl) Negati ve Not Available [address], [address], 07/21/2024 12:04:50 07/21/19 25 07/21/2024 urina lysis , dipst ick Glucose (reference range: negative mg/dl) Negati ve Not Available [address], [address], 07/21/2024 12:04:50 07/21/19 25 07/21/2024 urina lysis , dipst ick Appearance Clear Not Available [address], [address], 07/21/2024 12:04:50 07/21/19 25 07/21/2024 urina lysis , dipst ick Color Pale Yellow Not Available [address], [address], 07/21/2024 12:04:50 09/22/19 25 09/21/2024 URINA LYSIS COMPL ETE/I RIS W/RFX color COLORL ESS Not Available [facility] (Lab) [address] [place], [address], 09/21/2024 19:46:22 09/22/19 25 09/21/2024 URINA LYSIS COMPL ETE/I RIS W/RFX appear CLEAR Not Available [facility] (Lab) [address] [place], [address], 09/21/2024 19:46:22 09/22/19 25 09/21/2024 URINA LYSIS COMPL ETE/I RIS W/RFX specific gravity 1.006 1.001- 1.030 Not Available [facility] (Lab) [address] [place], [address], 09/21/2024 19:46:22 09/22/19 25 09/21/2024 URINA LYSIS COMPL ETE/I RIS W/RFX pH 7.0 pH_un its 5.0-9. 0 Not Available [facility] (Lab[facility] [address] [facility] [place], [address], 09/21/2024 19:46:22 09/22/19 25 09/21/2024 URINA LYSIS COMPL ETE/I RIS W/RFX leukocytes 75 afshan/u L negati ve- abnormal Not Available [facility] (Lab) [address] [place], [address], 09/21/2024 19:46:22 09/22/19 25 09/21/2024 URINA LYSIS COMPL ETE/I RIS W/RFX nitrite NEGATI VE negati ve- Not Available [facility] (Lab) [address] [place], [address], 09/21/2024 19:46:22 09/22/19 25 09/21/2024 URINA LYSIS COMPL ETE/I RIS W/RFX protein NEGATI VE mg/dL negati ve- Not Available [facility] (Lab) [address] [place], [address], 09/21/2024 19:46:22 09/22/19 25 09/21/2024 URINA LYSIS COMPL ETE/I RIS W/RFX glucose NORMAL mg/dL normal - Not Available [facility] (Lab) [address] [place], [address], 09/21/2024 19:46:22 09/22/19 25 09/21/2024 URINA LYSIS COMPL ETE/I RIS W/RFX ketones NEGATI VE mg/dL negati ve- Not Available [facility] (Lab) [address] [place], [address], 09/21/2024 19:46:22 09/22/19 25 09/21/2024 URINA LYSIS COMPL ETE/I RIS W/RFX urobilinogen NORMAL mg/dL normal - Not Available [facility] (Lab) [address] [place], [address], 09/21/2024 19:46:22 09/22/19 25 09/21/2024 URINA LYSIS COMPL ETE/I RIS W/RFX bilirubin NEGATI VE mg/dL negati ve- Not Available [facility] (Lab) [address] [place], [address], 09/21/2024 19:46:22 09/22/19 25 09/21/2024 URINA LYSIS COMPL ETE/I RIS W/RFX blood NEGATI VE mg/dL negati ve- Not Available [facility] (Lab) [address] [place], [address], 09/21/2024 19:46:22 09/22/19 25 09/21/2024 URINA LYSIS COMPL ETE/I RIS W/RFX white blood cells 0-8 /i??h pfi?? 0-8 Not Available [facility] (Lab) [address] [place], [address], 09/21/2024 19:46:22 09/22/19 25 09/21/2024 URINA LYSIS COMPL ETE/I RIS W/RFX red blood cells 0-4 /i??h pfi?? 0-4 Not Available [facility] (Lab) [address] [place], [address], 09/21/2024 19:46:22 09/22/19 25 09/21/2024 URINA LYSIS COMPL ETE/I RIS W/RFX bacteria OCCASI ONAL none seen- abnormal Not Available [facility] (Lab) [address] [place], [address], 09/21/2024 19:46:22 09/22/19 25 09/21/2024 URINA LYSIS COMPL ETE/I RIS W/RFX mucous OCCASI ONAL /i??l pfi?? none seen- abnormal Not Available [facility] (Lab) [address] [place], [address], 09/21/2024 19:46:22 09/22/19 25 09/21/2024 URINA LYSIS COMPL ETE/I RIS W/RFX squamous epithelial FEW /i??l pfi?? abnormal Not Available [facility] (Lab) [address] [place], [address], 09/21/2024 19:46:22 09/22/19 25 09/21/2024 URINA LYSIS COMPL ETE/I RIS W/RFX tranistional epithelial FEW /i??l pfi?? abnormal Not Available [facility] (Lab) [address] [place], [address], 09/21/2024 19:46:22 09/22/19 25 09/21/2024 CBC/C OMPLE TE BLD COUNT W/DIF F white blood cells 5.4 x10'3 /uL 4.2-10 .8 Not Available [facility] (Lab) [address] [place], [address], 09/21/2024 19:51:16 09/22/19 25 09/21/2024 CBC/C OMPLE TE BLD COUNT W/DIF F red blood cells 4.23 x10'6 /uL 3.80-5 .20 Not Available [facility] (Lab) [address] [place], [address], 09/21/2024 19:51:16 09/22/19 25 09/21/2024 CBC/C OMPLE TE BLD COUNT W/DIF F hemoglobin 13.7 g/dL 12.0-1 5.6 Not Available [facility] (Lab) [address] [place], [address], 09/21/2024 19:51:16 09/22/19 25 09/21/2024 CBC/C OMPLE TE BLD COUNT W/DIF F hematocrit 40.3 % 35.7-4 5.7 Not Available [facility] (Lab) [address] [place], [address], 09/21/2024 19:51:16 09/22/19 25 09/21/2024 CBC/C OMPLE TE BLD COUNT W/DIF F mean red cell volume 95.3 fL 82.0-9 9.0 Not Available [facility] (Lab) [address] [place], [address], 09/21/2024 19:51:16 09/22/19 25 09/21/2024 CBC/C OMPLE TE BLD COUNT W/DIF F mean red cell hemoglobin 32.4 pg 27.0-3 3.0 Not Available [facility] (Lab) [address] [place], [address], 09/21/2024 19:51:16 09/22/19 25 09/21/2024 CBC/C OMPLE TE BLD COUNT W/DIF F mean RBC HGB concentratio n 34.0 g/dL 31.0-3 6.0 Not Available [facility] (Lab) [address] [place], [address], 09/21/2024 19:51:16 09/22/19 25 09/21/2024 CBC/C OMPLE TE BLD COUNT W/DIF F red cell distribution width 14.3 % 11.8-1 5.5 Not Available [facility] (Lab) [address] [place], [address], 09/21/2024 19:51:16 09/22/19 25 09/21/2024 CBC/C OMPLE TE BLD COUNT W/DIF F platelets 289 x10'3 /uL 150-40 0 Not Available [facility] (Lab) [address] [place], [address], 09/21/2024 19:51:16 09/22/19 25 09/21/2024 CBC/C OMPLE TE BLD COUNT W/DIF F mean platelet volume 11.5 fL 9.0-12 .4 Not Available [facility] (Lab) [address] [place], [address], 09/21/2024 19:51:16 09/22/19 25 09/21/2024 CBC/C OMPLE TE BLD COUNT W/DIF F neutrophils 53.1 % 39.0-7 2.0 Not Available [facility] (Lab) [address] [place], [address], 09/21/2024 19:51:16 09/22/19 25 09/21/2024 CBC/C OMPLE TE BLD COUNT W/DIF F lymphocytes 32.1 % 16.0-4 7.0 Not Available [facility] (Lab) [address] [place], [address], 09/21/2024 19:51:16 09/22/19 25 09/21/2024 CBC/C OMPLE TE BLD COUNT W/DIF F monocytes 7.2 % 5.0-12 .0 Not Available [facility] (Lab) [address] [place], [address], 09/21/2024 19:51:16 09/22/19 25 09/21/2024 CBC/C OMPLE TE BLD COUNT W/DIF F eosinophils 5.7 % 1.0-7. 0 Not Available [facility] (Lab) [address] [place], [address], 09/21/2024 19:51:16 09/22/1909/21/2024 CBC/C OMPLE TE BLD COUNT W/DIF F basophils 1.5 % 0.0-2. 0 Not Available [facility] (Lab) [address] [place], [address], 09/21/2024 19:51:16 09/22/19 25 09/21/2024 CBC/C OMPLE TE BLD COUNT W/DIF F immature granulocytes 0.4 % 0.00-0 .50 Not Available [facility] (Lab) [address] [place], [address], 09/21/2024 19:51:16 09/22/1909/21/2024 CBC/C OMPLE TE BLD COUNT W/DIF F neutrophils, absolute count 2.88 x10'3 /uL 1.5-8. 0 Not Available [facility] (Lab) [address] [place], [address], 09/21/2024 19:51:16 09/22/19 25 09/21/2024 CBC/C OMPLE TE BLD COUNT W/DIF F lymphocytes, absolute count 1.74 x10'3 /uL 1.07-3 .43 Not Available [facility] (Lab) [address] [place], [address], 09/21/2024 19:51:16 09/22/19 25 09/21/2024 CBC/C OMPLE TE BLD COUNT W/DIF F monocytes, absolute count 0.39 x10'3 /uL 0.29-0 .99 Not Available [facility] (Lab) [address] [place], [address], 09/21/2024 19:51:16 09/22/19 25 09/21/2024 CBC/C OMPLE TE BLD COUNT W/DIF F eosinophils, absolute count 0.31 x10'3 /uL 0.02-0 .53 Not Available [facility] (Lab) [address] [place], [address], 09/21/2024 19:51:16 09/22/19 25 09/21/2024 CBC/C OMPLE TE BLD COUNT W/DIF F basophils, absolute count 0.08 x10'3 /uL 0.01-0 .08 Not Available [facility] (Lab) [address] [place], [address], 09/21/2024 19:51:16 09/22/19 25 09/21/2024 CBC/C OMPLE TE BLD COUNT W/DIF F immature granulocytes ,absolute 0.02 x10'3 /uL 0.00-0 .05 Not Available [facility] (Lab) [address] [place], [address], 09/21/2024 19:51:16 09/22/19 25 09/21/2024 CBC/C OMPLE TE BLD COUNT W/DIF F nucleated red blood cells 0.0 % -0 Not Available [facility] (Lab) [address] [place], [address], 09/21/2024 19:51:16 09/22/19 25 09/21/2024 CBC/C OMPLE TE BLD COUNT W/DIF F NRBC# 0.00 x10'3 /uL Not Available [facility] (Lab) [address] [place], [address], 09/21/2024 19:51:16 09/22/19 25 09/21/2024 URIC ACID SERUM uric acid 5.1 mg/dL 2.5-6. 2 Not Available [facility] (Lab) [address] [place], [address], 09/21/2024 20:01:35 09/22/19 25 09/21/2024 COMPR EHENS POOL METAB OLIC PANEL sodium 136 mmol/ L 137-14 5 low Not Available [facility] (Lab) [address] [place], [address], 09/21/2024 20:01:41 09/22/19 25 09/21/2024 COMPR EHENS POOL METAB OLIC PANEL potassium 5.0 mmol/ L 3.5-5. 1 Not Available [facility] (Lab) [address] [place], [address], 09/21/2024 20:01:41 09/22/19 25 09/21/2024 COMPR EHENS POOL METAB OLIC PANEL chloride 100 mmol/ L 98-107 Not Available [facility] (Lab) [address] [place], [address], 09/21/2024 20:01:41 09/22/19 25 09/21/2024 COMPR EHENS POOL METAB OLIC PANEL carbon dioxide 25 mmol/ L 22-30 Not Available [facility] (Lab) [address] [place], [address], 09/21/2024 20:01:41 09/22/19 25 09/21/2024 COMPR EHENS POOL METAB OLIC PANEL anion gap 16.0 mmol/ L 14-22 Not Available [facility] (Lab) [address] [place], [address], 09/21/2024 20:01:41 09/22/19 25 09/21/2024 COMPR EHENS POOL METAB OLIC PANEL glucose 100 mg/dL 70-99 high Not Available [facility] (Lab) [address] [place], [address], 09/21/2024 20:01:41 09/22/19 25 09/21/2024 COMPR EHENS POOL METAB OLIC PANEL BUN 21 mg/dL 8-19 high Not Available [facility] (Lab) [address] [place], [address], 09/21/2024 20:01:41 09/22/19 25 09/21/2024 COMPR EHENS POOL METAB OLIC PANEL creatinine 0.88 mg/dL 0.66-1 .25 Not Available [facility] (Lab) [address] [place], [address], 09/21/2024 20:01:41 09/22/19 25 09/21/2024 COMPR EHENS POOL METAB OLIC PANEL GFR >60 Refer ence Range : [facility] GFR Healt hy Adult : >60 [...] or ethni c subgr oups, such as Hismo nics. Outsi de the valid ated madhu [...] calcu lator is avail able on the F websi te: https ://fuentes [email or web address].shaka zavaleta.o rg/pr ofess ional s/kdo qi/gf r_cal culat or Not Available [facility] (Lab) [address] [place], [address], 09/21/2024 20:01:41 09/22/19 25 09/21/2024 COMPR EHENS POOL METAB OLIC PANEL alkaline phosphatase 60 U/L 38-126 Not Available [facility] (Lab) [address] [place], [address], 09/21/2024 20:01:41 09/22/19 25 09/21/2024 COMPR EHENS POOL METAB OLIC PANEL alanine aminotransfe rase 41 U/L 0-35 high Not Available [facility] (Lab) [address] [place], [address], 09/21/2024 20:01:41 09/22/19 25 09/21/2024 COMPR EHENS POOL METAB OLIC PANEL aspartate aminotransfe rase 32 U/L 15-37 Not Available [facility] (Lab) [address] [place], [address], 09/21/2024 20:01:41 09/22/19 25 09/21/2024 COMPR EHENS POOL METAB OLIC PANEL bilirubin, total 0.80 mg/dL 0.20-1 .30 Not Available [facility] [facility] (Lab[facility] [address] [place], [address], 09/21/2024 20:01:41 09/22/19 25 09/21/2024 COMPR EHENS POOL METAB OLIC PANEL calcium 11.7 mg/dL 8.4-10 .2 high Not Available [facility] (Lab) [address] [place], [address], 09/21/2024 20:01:41 09/22/19 25 09/21/2024 COMPR EHENS POOL METAB OLIC PANEL total protein 7.9 g/dL 6.3-8. 2 Not Available [facility] (Lab) [address] [place], [address], 09/21/2024 20:01:41 09/22/19 25 09/21/2024 COMPR EHENS POOL METAB OLIC PANEL albumin 5.3 g/dL 3.0-4. 4 high Not Available [facility] (Lab) [address] [place], [address], 09/21/2024 20:01:41 09/22/19 25 09/21/2024 COMPR EHENS POOL METAB OLIC PANEL globulin 2.6 g/dL 2.6-4. 2 Not Available [facility] (Lab) [address] [place], [address], 09/21/2024 20:01:41 09/22/19 25 09/21/2024 COMPR EHENS POOL METAB OLIC PANEL A/G ratio 2.0 ratio 1.0-2. 0 Not Available [facility] (Lab) [address] [place], [address], 09/21/2024 20:01:41 09/22/19 25 09/21/2024 LIPID PANEL cholesterol 186 mg/dL 140-19 9 NIH LUPIS NSUS RECOM MENDA TION FOR GENEVIEVE STERO L: ADULT CHILD LOW RISK: <200 <170 BORDE RLINE : <200- 239 ----- HIGH RISK: >240 >200 Not Available [facility] (Lab) [address] [place], [address], 09/21/2024 20:01:46 09/22/19 25 09/21/2024 LIPID PANEL triglyceride s 155 mg/dL 0-150 high NIH LUPIS NSUS REPOR T RECOM MENDA TION FOR TRIGL YCERI BERNA: ADULT CHILD LOW RISK: <150 ----- BODER LINE: 150-1 99 ----- HIGH RISK: >200 ----- Not Available [facility] (Lab) [address] [place], [address], 09/21/2024 20:01:46 09/22/19 25 09/21/2024 LIPID PANEL HDL cholesterol 43 mg/dL 40- Not Available [facility] (Lab) [address] [place], [address], 09/21/2024 20:01:46 09/22/19 25 09/21/2024 LIPID PANEL [...] WILL NOT BE REPOR GRACIELA. Not Available [facility] (Lab) [address] [place], [address], 09/21/2024 20:01:46 09/22/19 25 09/21/2024 PARAT HY.HO RM(PT H)INT ACT-W /O CA intact parathyroid hormone 111.1 pg/mL 24.0-7 8.0 high Not Available [facility] (Lab) [address] [place], [address], 09/21/2024 20:18:23 09/22/19 25 09/21/2024 VITAM IN D 25-HY DROXY vd25oh 48.2 NG/mL 30-100 Vitam in D Statu s: Defic ient: <20 ng/mL Insuf ficie nt: 20-29 ng/mL Suffi cient : 30-10 0 ng/mL Not Available [facility] (Lab) [address] [place], [address], 09/21/2024 20:18:38 09/22/19 25 09/21/2024 HEMOG LOBIN A1C HA1C 5.6 % 4.0-6. 0 Diabe octavio Scree kayden Crite ankit: <5.7% Consi stent with absen ce of diabe octavio 5.7-6 .4% Consi stent with incre ased risk for diabe octavio (pred iabet es) >OR=6 .5% Consi stent with diabe octavio REFER ENCE: Diabe octavio Care 2016, 39(Hernández ppl.1 ):s13 -s22 Not Available [facility] (Lab) [address] [place], [address], 09/21/2024 20:26:48 09/22/19 25 09/21/2024 TSH W/REF FARHEEN FT4 TSH with reflex free T4 1.650 uIU/m L 0.465- 4.680 Not Available [facility] (Lab) [address], [place], [address], 09/21/2024 20:36:14 09/22/19 25 09/21/2024 urina lysis , dipst ick Leukocytes (reference range: negative afshan/ l) Small Not Available [address], [address], 09/21/2024 14:23:19 09/22/19 25 09/21/2024 urina lysis , dipst ick Nitrite (reference rage: negative mg/dl) negati ve Not Available [address], [address], 09/21/2024 14:23:19 09/22/19 25 09/21/2024 urina lysis , dipst ick Urobilinogen (reference range: 0.2-1 mg/dl) 0.2 Not Available [address], [address], 09/21/2024 14:23:19 09/22/19 25 09/21/2024 urina lysis , dipst ick Protein (reference range: negative mg/dl) Negati ve Not Available [address], [address], 09/21/2024 14:23:19 09/22/19 25 09/21/2024 urina lysis , dipst ick pH (reference range: 5-7) 7.0 Not Available [address], [address], 09/21/2024 14:23:19 09/22/19 25 09/21/2024 urina lysis , dipst ick Blood (reference range: negative Cornelio/ l) Negati ve Not Available [address], [address], 09/21/2024 14:23:19 09/22/19 25 09/21/2024 urina lysis , dipst ick Specific [place] (reference range: 1.005-1.030) 1.010 Not Available [address], [address], 09/21/2024 14:23:19 09/22/19 25 09/21/2024 urina lysis , dipst ick Ketone (reference range: negative mg/dl) Negati ve Not Available [address], [address], 09/21/2024 14:23:19 09/22/19 25 09/21/2024 urina lysis , dipst ick Bilirubin (reference range: negative mg/dl) Negati ve Not Available [address], [address], 09/21/2024 14:23:19 09/22/19 25 09/21/2024 urina lysis , dipst ick Glucose (reference range: negative mg/dl) Negati ve Not Available [address], [address], 09/21/2024 14:23:19 09/22/19 25 09/21/2024 urina lysis , dipst ick Appearance Clear Not Available [address], [address], 09/21/2024 14:23:19 09/22/19 25 09/21/2024 urina lysis , dipst ick Color Pale Yellow Not Available [address], [address], 09/21/2024 14:23:19 02/09/20 25 02/08/2025 urina lysis , dipst ick Leukocytes (reference range: negative afshan/ l) Small Not Available [address], [address], 02/08/2025 09:54:36 02/09/2002/08/2025 urina lysis , dipst ick Nitrite (reference rage: negative mg/dl) positi ve Not Available [address], [address], 02/08/2025 09:54:36 02/09/2002/08/2025 urina lysis , dipst ick Urobilinogen (reference range: 0.2-1 mg/dl) 0.2 Not Available [address], [address], 02/08/2025 09:54:36 02/09/2002/08/2025 urina lysis , dipst ick Protein (reference range: negative mg/dl) Negati ve Not Available [address], [address], 02/08/2025 09:54:36 02/09/2002/08/2025 urina lysis , dipst ick pH (reference range: 5-7) 7.5 Not Available [address], [address], 02/08/2025 09:54:36 02/09/20 25 02/08/2025 urina lysis , dipst ick Blood (reference range: negative Cornelio/ l) Negati ve Not Available [address], [address], 02/08/2025 09:54:36 02/09/20 25 02/08/2025 urina lysis , dipst ick Specific [place] (reference range: 1.005-1.030) 1.020 Not Available [address], [address], 02/08/2025 09:54:36 02/09/2002/08/2025 urina lysis , dipst ick Ketone (reference range: negative mg/dl) Negati ve Not Available [address], [address], 02/08/2025 09:54:36 02/09/2002/08/2025 urina lysis , dipst ick Bilirubin (reference range: negative mg/dl) Negati ve Not Available [address], [address], 02/08/2025 09:54:36 02/09/2002/08/2025 urina lysis , dipst ick Glucose (reference range: negative mg/dl) Negati ve Not Available [address], [address], 02/08/2025 09:54:36 02/09/2002/08/2025 urina lysis , dipst ick Appearance Clear Not Available [address], [address], 02/08/2025 09:54:36 02/09/2002/08/2025 urina lysis , dipst ick Color Yellow Not Available [facility] [address] [facility], [place], [address], 02/08/2025 09:54:36 09/17/19 25 09/16/2024 NM, kidne y scan, w/ vascu lar flow + funct ion, singl e, w/o pharm a inter venti on No observ ation record ed. [address] [address], [place], [address], 09/21/2024 14:09:22 10/26/19 25 10/25/2024 XR, kidne y + urete r + bladd er No observ ation record ed. [address] [address], [place], [address], 02/08/2025 10:01:47 11/03/19 25 11/02/2024 XR, kidne y + urete r + bladd er No observ ation record ed. [address] [address], [place], [address], 02/08/2025 10:01:46 12/03/19 25 12/01/2024 XR, kidne y + urete r + bladd er No observ ation record ed. [address] [address], [place], [address], 02/08/2025 10:01:46 12/22/19 25 12/14/2024 CT, abdom en + pelvi s, w/o contr ast No observ ation record ed. [address] [address], [place], [address], 02/08/2025 10:01:46 Result Notes None recorded. Problems Name Problem SNOMED Code Status Onset Date Resolution Date Notes Provider Name and Address Organization Details Recorded Time Anthony hematuria 701121983 Completed Not Available [employer] 3 07:31:20 Headache 54773291 Completed Daly Pinto, GUS [address], [address], [place], [address] , [employer] 3 12:00:58 Retinal disorder 32314617 Active Not Available [facility] 3 07:31:20 Depressiv e disorder 99511024 Active Not Available [facility] 3 07:31:21 Hematoma 072154764 Completed Not Available [facility] 3 07:31:21 Furuncle 778231577 Completed Michael Faye MD [address], [facility] [address], [place], [address] , [employer] [facility] 4 10:18:43 Foot pain 86253348 Completed Not Available [facility] 3 07:31:22 Anxiety 79685498 Active Not Available [facility] 3 07:31:22 Upper respirato ry infection 66437040 Completed Not Available [facility] 3 07:31:22 Urinary tract infectiou s disease 22509921 Completed Michael Faye MD [address], [facility] [address], [place], [address] , [employer] 4 16:13:03 Sleep apnea 80599582 Active Not Available [facility] 3 07:31:24 Urgent desire to urinate 96513700 Completed Not Available [facility] 3 07:31:24 Skin lesion 49426750 Completed Not Available [facility] 3 07:31:25 Kidney stone 59436184 Completed Not Available [facility] 3 07:31:25 Osteoarth ritis of knee 410254249 Active 2016 Not Available [facility] 3 07:31:20 Environme ntal allergy 840904378 Active 2016 Not Available [facility] 3 07:31:21 Migraine without aura 27315288 Active 2016 Not Available [facility] 3 07:31:22 Varicose veins of lower extremity 04402816 Active 2016 Not Available [facility] 3 07:31:23 Hyperlipi demia 39085916 Active 2016 Not Available [facility] 3 07:31:22 Hyperglyc emia 98697609 Active 2016 Not Available [facility] 3 07:31:24 Sinusitis 36772196 Active 2017 Not Available [facility] 3 07:31:21 Acid reflux 561709067 Active 2018 Not Available [facility] 3 07:31:23 Gastroeso phageal reflux disease 453224351 Active 2019 Not Available [facility] 3 07:31:20 Seasonal allergic rhinitis 353022124 Active 2019 Not Available [facility] 3 07:31:21 Hypertens pool disorder 17094254 Active 2019 Not Available [facility] 3 07:31:21 Bilateral tinnitus 56953059332 02 Active 2019 Not Available [facility] 3 07:31:22 Hypertrig lyceridem ia 598687311 Active 2020 Not Available [facility] 3 07:31:21 Memory impairmen t 895915262 Active 2020 Not Available [facility] 3 07:31:21 Liver enzymes level above reference range 682443488 Active 2020 Not Available [facility] 3 07:31:23 Acute sinusitis 49969163 Active 2020 Not Available [facility] 3 07:31:19 History of thyroid disorder 857960583 Active 2020 Not Available [facility] 3 07:31:20 Postmenop ausal state 17693193 Active 2021 Not Available [facility] 3 07:31:24 Low back pain 870801522 Active 2021 Not Available [facility] 3 07:31:20 Gout 36376900 Active 2021 Not Available [facility] 3 07:31:24 Osteoporo sis 11361789 Active 2021 Not Available [facility] 3 07:31:23 Sciatica 83312417 Active 2021 Not Available [facility] 3 07:31:20 Mixed anxiety and depressiv e disorder 981081962 Active 2021 Not Available [facility] 3 07:31:20 Lumbar spondylos is 278477234 Active 2021 Not Available [facility] 3 07:31:20 Herniatio n of lumbar intervert ebral disc with sciatica 13137473954 4105 Active 2021 Not Available [facility] 3 07:31:22 Obese 098453109 Active 2022 Daly Pinto NP [address], [address], [place], [address] , [employer] [facility] 3 11:56:43 Headache 76388027 Active 2022 Daly Pinto NP [address], [address], [place], [address] , [place] - [facility] 3 12:00:58 Lumbar radiculop athy 420266358 Active 2022 Michael Faye MD [address], [address], [place], [address] , [employer] - [facility] 3 17:01:57 Obesity 023862888 Active 2022 Michael Faye MD [address], [address], [place], [address] , [employer] - [facility] 3 17:02:46 Lipoma of lower leg 347705695 Active 2022 Michael Faye MD [address], [address], [place], [address] , [employer] - [facility] 3 17:43:42 Idiopathi c hypercalc emia 969623118 Active 2022 Michael Faye MD [address], [address], [place], [address] , [employer] 3 14:31:47 Hyperpara thyroidis m 41557316 Active 2022 Michael Faye MD [address], [address], [place], [address] , [employer] - [facility] [place] [employer] 5 10:26:42 Blood in urine 32977118 Active 2022 Daly Pinto NP [address], [address], [place], [address] , [employer] 3 10:44:02 Abnormal uterine bleeding 09538543562 100 Active 2022 Daly Pinto NP [address], [address], [place], [address] , [employer] - [employer] 3 10:44:49 Acute urinary tract infection 736059670 Active 2022 Daly Pinto NP [address], [address], [place], [address] , [employer] [facility] [employer] 3 08:51:54 Dysuria 98933793 Active 2022 Michael Faye MD [address], [address], [place], [address] , [employer] 5 14:23:11 Urinary tract infectiou s disease 67508542 Active 2023 Michael Faye MD [address], [address], [place], [address] , [employer] [facility] [employer] [facility] 4 16:13:03 Bilateral earache 893707318 Active 2023 Michael Faye MD [address], [address], [place], [address] , [employer] - [facility] [place] [employer] [facility] 4 16:33:22 Candidal vulvovagi nitis 58213583 Active 2023 Michael Faye MD [address], [address], [place], [address] , [place] [facility] [employer] 4 16:37:42 Gouty arthropat hy 798090892 Active 2023 Michael Faye MD [address], [address], [place], [address] , [place] - [facility] [employer] [facility] 4 09:56:46 Polyarthr opathy 12468705 Active 2023 Michael Faye MD [address], [address], [place], [address] , [place] - [facility] [employer] [facility] 4 09:58:59 Obstructi ve sleep apnea syndrome 07913432 Active 2023 Michael Faye MD [address], [address], [place], [address] , [place] - [facility] [employer] [facility] 4 10:07:57 Pain of right knee joint 94371364513 4100 Active 2023 LILLY Beltran [address], [address], [place], [address] , [employer] [facility] 4 14:54:22 Hypercalc emia 21626619 Active 2023 LILLY Beltran [address], [address], [place], [address] , [employer] - [employer] [facility] 4 14:58:37 Cough 37675491 Active 2024 Michael Faye MD [address], [address], [place], [address] , [employer] - [facility] 5 14:35:26 Bronchiti s 52708843 Active 2024 Michael Faye MD [address], [address], [place], [address] , [facility] - [facility] [employer] [facility] 5 14:57:50 Muscle strain 55293856 Active 2024 Michael Faye MD [address], [address], [place], [address] , [employer] 5 15:14:02 Problem Notes None recorded. Procedures Surgical History Date Name Laterality Status Provider Name and Address Organization Details Recorded Time 10/27/19 24 Date of Last Pap Smear completed Michael Faye MD [address], [address], [place], [address], [employer] 09/21/2024 14:27:51 09/29/19 24 Medicare Wellness CPT Code, subsequent completed Reji Ashton [employer] [facility] [employer] 09/29/2023 14:15:26 08/29/19 24 Most Recent Mammogram completed Michael Faye MD [address], [address], [place], [address], [employer] 09/21/2024 14:27:51 06/18/19 24 Transitional_Care_ Management completed Reji [employer] 06/18/2023 16:22:09 04/03/20 22 Most Recent Bone Density completed Not Available [facility] 07/23/2022 07:26:53 05/25/19 18 Knee Replacement completed Not Available [facility] 07/23/2022 07:26:55 05/25/19 02 repair of ovary completed Not Available [facility] 07/23/2022 07:26:55 05/25/18 92 Cholecystectomy completed Not Available [facility] 07/23/2022 07:26:55 Imaging Results None recorded. Procedure Notes None recorded. Medical Equipment None Reported. Allergies Allergen ID Allergen Name Allergen Category Reaction Reaction Severity Criticality Documentation Date Start Date Code Code System Note Provider Name and Address Organization Details Recorded Time 93051 Substance with sulfonami de structure and antibacte rial mechanism of action (substanc e) medicatio n nausea Not available Not available 07/23/2022 36970 8003 SNOMED Not Available [facility] 3 07:36:13 44762 Zithromax medicatio n other Not available Not available 03/31/2024 66585 4 RxNorm cause s pt to be super jitte ry Michael Faye MD [address], [address], [place], [address], [employer] 5 14:58:29 64619 Macrobid medicatio n anaphylax is severe high 06/16/20242024 25773 1 RxNorm state s her throa t close d up with in the hour of leyda dove it, had to go to [facility] [place] [employer] 5 09:32:31 Medications Name Sig Start Date [...] Not Available Not Available No t Available phenazopy ridine 200 mg tablet Take 1 tablet every 8 hours by oral route as needed for 7 days. 02/22 completed Not Available Not Available Not Available sumatript an 25 mg tablet Take [...] Not Available ciproflox acin 500 mg tablet TAKE 1 TABLET BY MOUTH TWICE DAILY active Not Available Not Available No t Available omeprazol e 40 mg capsule,d elayed [...] 1 TABLET BY MOUTH EVERY 12 HOURS active Not Available Not Available No [...] Not Available rosuvasta tin 10 mg tablet Take 1 tablet every [...] Not Available Not Available Not Available Afluria 4178-6851 (PF) 45 mcg (15 mcg x 3)/0.5 mL intramusc ular syringe USE DIRECTED active Not Available Not Available No t Available [facility] ([facility]) 45 mcg (15 mcg x 3)/0.5 mL IM syringe TO BE ADMINIST ERED BY PHARMACI ST FOR IMMUNIZA TION active Not Available Not Available No t Available Flucelvax Quad (PF) 60 mcg (15 mcg x 4)/0.5 mL IM syringe active Not Available Not Available Not Available Vitals Date Recorded Oxygen saturation Oxygen saturation in Arterial blood by Pulse oximetry Systolic And Diastolic Provider Name and Address Organization Details Last Updated DateTime 07/21/2024 96 % 96 % 160/84 mm[Hg] Michael Faye MD [address], [address], [place], [address], [place] - [facility] [employer] [facility] 07/21/2024 12:20:50 Date Recorded Body height Body mass index (BMI) Body weight Body temperature Heart rate Respiratory rate Pain severity - 0-10 verbal numeric rating [Score] - Reported Provider Name and Address Organization Details Last Updated DateTime 5 160.02 cm 41.7 kg/m2 063336. 91 g 97.5 [degF] 74 /min 20 /min 1 Daly Monte RN [facility] [employer] [facility] 5 11:47:05 Date Recorded Body height Body mass index (BMI) Body weight Body temperature Oxygen saturation Oxygen saturation in Arterial blood by Pulse oximetry Heart rate Systolic And Diastolic Provider Name and Address Organization Details Last Updated DateTime 5 160.02 cm 41.4 kg/m2 036272. 82 g 98.2 [degF] 96 % 96 % 72 /min 120/70 mm[Hg] Nely Xiao RN [facility] [employer] [facility] 5 14:53:14 Date Recorded Body height Body mass index (BMI) Body weight Body temperature Oxygen saturation Oxygen saturation in Arterial blood by Pulse oximetry Heart rate Systolic And Diastolic Provider Name and Address Organization Details Last Updated DateTime 5 160.02 cm 40.6 kg/m2 913764. 05 g 98.1 [degF] 97 % 97 % 81 /min 142/70 mm[Hg] Nely Xiao RN [facility] [employer] [facility] 5 14:07:59 Date Recorded Body height Body mass index (BMI) Body weight Body temperature Oxygen saturation Oxygen saturation in Arterial blood by Pulse oximetry Heart rate Systolic And Diastolic Provider Name and Address Organization Details Last Updated DateTime 5 160.02 cm 41 kg/m2 793050. 89 g 97.7 [degF] 98 % 98 % 76 /min 140/64 mm[Hg] Nely Xiao RN [facility] [employer] [facility] 5 10:19:26 Date Recorded Body height Body mass index (BMI) Body weight Body temperature Oxygen saturation Oxygen saturation in Arterial blood by Pulse oximetry Heart rate Systolic And Diastolic Provider Name and Address Organization Details Last Updated DateTime 5 160.02 cm 40.6 kg/m2 747650. 35 g 98.6 [degF] 97 % 97 % 68 /min 146/66 mm[Hg] Nely Xiao RN [facility] [employer] [facility] 10:00:41 Social History Question Answer Notes LastModified by Organizat ion Details LastModified Time Tobacco Smoking Status Never Smoker Elida Ascencio ghislaine, [facility] [employer] [facility] 06/18/2023 16:10:12 Do You Have An Advance Directive? Yes [id number] Information not available 07/23/2022 Are You Blind Or Do You Have Difficulty Seeing? No Information not available 06/18/2023 Is Blood Transfusion Acceptable In An Emergency? Yes Information not available 06/18/2023 What Is Your Level Of Caffeine Consumption? Moderate [id number] Information not available 07/23/2022 How Much Tobacco Do You Chew? None [id number] Information not available 07/23/2022 What Is Your [...] Or The Highest Degree You Have Received? [id number] Information not available 06/18/2023 How Many Days [...] not available 06/18/2023 Where Do You Live? [facility] Information not available 06/18/2023 Advance Directive- [...] Do You Have A Medical Power Of Scheduler? No Information not available 06/18/2023 What Was [...] is your level of alcohol consumption? None [id number] Information not available 07/23/2022 Are you currently employed? Yes Information not available 06/18/2023 Do you have transportation difficulties? No Information not available 06/18/2023 Are you able to walk independently without assistance or assistive devices? [employer] Information not available 06/18/2023 Do you have difficulty doing errands alone? No Information not available 06/18/2023 Are you able to care for yourself independently? 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 No Information not available 06/18/2023 Do you or have you ever used e-cigarettes or vape? Never used electronic cigarettes Information not available 06/18/2023 What is your exercise level? Moderate [email or web address] Information not available 12/30/2023 Mental Status Question Answer Note LastModified by Organizat ion Details LastModified Time Do you feel stressed (tense, restless, nervous, or anxious, or unable to sleep at night)? [id number] Information not available 11/09/2023 Do you have difficulty concentrating, remembering or making decisions? No Information no t available 06/18/2023 Family History Relationship Description Onset Age of this Age Resolved Age Notes LastModified by Organization Details LastModified Time Father No current problems or disability [id number] Not available 07/23/2022 07:26:58 Mother No current problems or disability [id number] Not available 07/23/2022 07:26:58 Medical History Condition [...] virus, quadrivalent, preservative 8 completed Not Available [facility] 07/23/2022 07:36:04 Influenza, split virus, trivalent, preservative 5 completed Not Available [facility] 07/23/2022 07:36:04 zoster live 5 completed Not Available [facility] 07/23/2022 07:36:04 Influenza, split virus, trivalent, PF 4 completed Not Available [facility] 07/23/2022 07:36:04 Pneumococcal conjugate PCV 13 0 completed Not Available [facility] 07/23/2022 07:36:05 Influenza, high-dose, quadrivalent, PF 0 completed Not Available [facility] 07/23/2022 07:36:05 Tdap 8 completed Not Available [facility] 07/23/2022 07:36:05 Influenza, split virus, quadrivalent, PF 6 completed Not Available [facility] 07/23/2022 07:36:05 Past Encounters Encounter ID Performer Location Encounter Start Date Encounter Closed Date Diagnosis/Indication Diagnosis SNOMED-CT Code Diagnosis ICD10 Code Diagnosis IMO Codes Diagnosis Note [id number] Daly Pinto NP [facility] [address] [place] [address] 07/24/2020 00:00:00 07/24/2020 09:44:41 [id number] Michael Faye MD [facility] [address] [place] [address] 10/31/2020 00:00:00 10/31/2020 09:16:25 [id number] Michael Faye MD [facility] [place] [address] [place] [address] 11/20/2020 00:00:00 11/20/2020 12:21:01 [id number] Michael Faye MD [facility] [place] [address] [place] [address] 02/13/2021 00:00:00 02/13/2021 14:33:22 [id number] Michael Faye MD [facility] [place] [address] [place] [address] 02/26/2021 00:00:00 02/26/2021 14:32:03 [id number] Michael Faye MD [facility] [place] [address] [place] [address] 07/24/2021 00:00:00 07/24/2021 14:56:44 [id number] Michael Faye MD [facility] [place] [address] [place] [address] 10/09/2021 00:00:00 10/09/2021 14:38:30 [id number] Daly Pinto NP [facility] [place] [address] [place] [address] 02/26/2022 00:00:00 02/26/2022 10:42:26 [id number] Michael Faye MD [facility] [place] [address] [place] [address] 03/18/2022 00:00:00 03/19/2022 15:55:39 [id number] Michael Faye MD [facility] [place] [address] [place] [address] 04/29/2022 00:00:00 04/29/2022 18:09:05 [id number] Michael Faye MD [address] [address] 05/06/2022 00:00:00 05/06/2022 15:25:01 [id number] Daly Pinto NP [address] [address] 08/06/2022 11:17:09 08/06/2022 12:50:33 Hyperlipidemia 51994136 E78.5 Low fat diet. Statins cause pain. 02/27/22 last lab result. Essential hypertension 32215550 I10 amlodipine 5 mg po daily.ASA 81 mg po dailyLosar puckett 100 mg po daily.tria mterene 37.5 mg-hctz25 mg po daily. (this can increase gout flare, so stopped and started on losartan only) Osteoporosis 58152429 M8 1.0 alendronat e 70 mg po weekly pt stopped. Wants to follow Dr. Sims holistic provider and be on vitamins.M eloxicam 15 mg po daily.Tram adol 50 mg po tid prn- pt trying to wean off. Acid reflux 216469042 K2 1.9 famotidine 20 mg po daily. Sleep apnea 45242320 G47 .30 Gout 43593972 M10.9 allopurino l 100 mg po daily. Seasonal a llergic rhinitis 445795837 J30.2 cetirizine 10 mg po daily.Flon ase prn Mixed anxi ety and depressive disorder 102591046 F41.8 Pt weaned herself off the lexapro. Hydroxyzin e prn use. Sciatica 00348328 M54.32 cyclobenza shalini 10 mg po tid prn.Gabape ntin 300 mg po nightly. Obese 722718257 E66.9 Diet and exercise. Wegovy and phentermin e discussed. Phentermin e 15 mg po daily. Headache 59428688 R51.9 [id number] Michael Faye MD [address] [address] 08/07/2022 16:38:36 08/07/2022 17:44:28 Cramp in lower limb 423757810 R25.2 B/L Lumbar radiculopathy 128 826239 M54.16 Gout 24312764 M10.9 Obesity 900190152 E66.9 Lipoma of lower leg 1890 01602 D17.24 [id number] Daly Pinto NP [address] [address] 09/09/2022 09:34:15 09/09/2022 10:58:16 Blood in urine 23367665 R31.9 Sending urine for culture. Blood with wiping- no periods for 15 years. Abnormal u terine bleeding 9097087216 9100 N93.9 referring to fabrication engineer- pt to find provider that accepts insurance. Obese 844196459 E66.9 Diet and exercise. Phentermin e 15 mg po daily. Down 2 lbs. Would like to continue. [id number] Daly Pinto NP [address] [address] 10/09/2022 09:13:04 10/09/2022 10:05:37 Obese 562435081 E66.9 Diet and exercise. Phentermin e 15 mg po daily. Down 2 lbs. Would like to continue.I LPMP last fill 09/09/22.Ph entermine 37.5 mg po daily. Essential hypertension 10171298 I10 amlodipine 5 mg po daily.ASA 81 mg po dailyLosar puckett 100 mg po daily.tria mterene 37.5 mg-hctz25 mg po daily. (this can increase gout flare, so stopped and started on losartan only) Gastroesop hageal reflux disease 720180608 K21.9 [id number] Daly Pinto NP [address] [address] 10/24/2022 10:41:24 10/24/2022 11:44:26 Dysuria 48543536 R30.0 R30.9 Patient was started on antibiotic and advised to increase water intake.Cul ture sent.Urina lysis in office +nitrites [id number] Daly Pinto NP [address] [address] 01/21/2023 13:58:46 01/21/2023 18:03:00 Gout 40051181 M10.9 allopurino l 200 mg po daily. Seeing Dr. Becerra. Sleep apnea 66954818 G47 .30 CPAP Acid reflux 776485214 K2 1.9 famotidine 20 mg po daily. Hyperparathyroidism 6699 9008 E21.3 referred to endo, but patient cancelled. Osteoporosis 00160405 M8 1.0 alendronat e 70 mg po weekly pt stopped. Wants to follow Dr. Sims holistic provider and be on vitamins.M eloxicam 15 mg po daily.Tram adol 50 mg po tid prn- pt trying to wean off. Not able to yet- trying to lose weight. Essential hypertension 07978206 I10 amlodipine 5 mg po daily.ASA 81 mg po dailyLosar puckett 100 mg po daily.tria mterene 37.5 mg-hctz25 mg po daily. (this can increase gout flare, so pt monitoring ) Migraine without aura 56 742192 G43.009 Hyperlipidemia 94963299 E78.5 Low fat diet. Statins cause pain. 02/27/22 last lab result. Anxiety 22027837 F41.9 Obese 505463182 E66.9 Diet and exercise. Lumbar spondylosis 63229 0009 M47.896 Osteoarthr itis of knee 765463080 M17.9 [id number] Michael Faye MD [address] [address] 06/18/2023 16:09:07 06/18/2023 17:00:32 Seen in emergency clinic 516481654 Z76.89 Recent ED records reviewed. 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 Obesity 754205759 E66.9 Osteoporosis 26375384 M8 1.0 Screening mammography 24 402616 Z12.31 Screening for malignant neoplasm of colon 626399336 Z12.11 Urinary tr act infectious disease 99877126 N39.0 Obstructiv e sleep apnea syndrome 79492780 G47.33 [id number] Michael Faye MD [address] [address] 09/29/2023 14:13:02 09/29/2023 15:00:22 Hypertensive disorder 29100202 I10 Gouty arthropathy 417339 008 M10.09 Depressive disorder 3548 9007 F32.A Polyarthropathy 79280874 M13.0 Obesity 770090957 E66.9 Osteoporosis 37556170 M8 1.0 Obstructiv e sleep apnea syndrome 40423763 G47.33 Adult heal th examination 436068407 Z00.00 Screening for disorder 602953270 Z13.9 Hyperlipidemia 82295236 E78.5 Liver enzy mes level above reference range 849974689 R74.01 Idiopathic hypercalcemia 445549719 E83.52 Essential hypertension 01554534 I10 [id number] Michael Faye MD [address] [address] 11/09/2023 14:20:26 11/09/2023 15:06:36 Pain of right knee joint 5959177848 59714 M25.561 Hypercalcemia 00866090 E 83.52 [id number] Michael Faye MD [address] [address] 12/22/2023 09:14:13 12/22/2023 09:30:39 [id number] Michael Faye MD [address] [address] 12/30/2023 09:42:46 12/30/2023 10:33:19 Hypertensive disorder 57632302 I10 Gouty arthropathy 714749 008 M10.09 Depressive disorder 3548 9007 F32.A Polyarthropathy 79389259 M13.0 Obesity 470446601 E66.9 Osteoporosis 89513199 M8 1.0 Obstructiv e sleep apnea syndrome 04185695 G47.33 Hyperlipidemia 28201730 E78.5 Liver enzy mes level above reference range 025989444 R74.01 Idiopathic hypercalcemia 080877494 E83.52 Osteoarthr itis of knee 207216691 M17.9 [id number] Michael Faye MD [address] [address] 03/31/2024 09:38:14 03/31/2024 10:14:55 Idiopathic hypercalcemia 926933793 E83.52 Gouty arthropathy 961281 008 M10.09 Hypertensive disorder 38 313116 I10 Depressive disorder 3548 9007 F32.A Polyarthropathy 07040464 M13.0 Obesity 322204590 E66.9 Osteoporosis 45094063 M8 1.0 Obstructiv e sleep apnea syndrome 22393703 G47.33 Hyperlipidemia 39940468 E78.5 Liver enzy mes level above reference range 715004951 R74.01 Osteoarthr itis of knee 468316797 M17.9 [id number] Michael Faye MD [address] [address] 06/15/2024 10:16:28 06/15/2024 10:56:03 Acute urinary tract infection 879141349 N39.0 hx of sepsis related to UTI [id number] Michael Faye MD [address] [address] 07/21/2024 11:36:24 07/21/2024 12:34:55 Gouty arthropathy 897456322 M10.09 Idiopathic hypercalcemia 846828303 E83.52 Hypertensive disorder 38 552632 I10 Depressive disorder 3548 9007 F32.A Polyarthropathy 80550190 M13.0 Obesity 942168092 E66.9 Osteoporosis 21847446 M8 1.0 Obstructiv e sleep apnea syndrome 16231574 G47.33 Hyperlipidemia 40321307 E78.5 Liver enzy mes level above reference range 796902541 R74.01 Osteoarthr itis of knee 646361139 M17.9 Blood in urine 37746041 R31.9 Dysuria 98011507 R30.0 [id number] Michael Faye MD [address] [address] 08/17/2024 14:29:59 08/17/2024 15:04:55 Cough 76220478 R05.9 Bronchitis 06658118 J40 Muscle strain 35234647 T 14.8XXA [id number] Michael Faye MD [address] [address] 09/21/2024 13:53:04 09/21/2024 14:42:12 Gouty arthropathy 276997843 M10.09 Idiopathic hypercalcemia 026147242 E83.52 Hypertensive disorder 38 656141 I10 Depressive disorder 3548 9007 F32.A Polyarthropathy 72450158 M13.0 Obesity 251447018 E66.9 Osteoporosis 95450136 M8 1.0 Obstructiv e sleep apnea syndrome 17829786 G47.33 Hyperlipidemia 12699823 E78.5 Liver enzy mes level above reference range 453413692 R74.01 Osteoarthr itis of knee 022174757 M17.9 Dysuria 53234132 R30.0 [id number] Michael Faye MD [address] [place] [address] 10/05/2024 10:11:13 10/05/2024 10:36:25 Hypertensive disorder 50860545 I10 Gouty arthropathy 145313 008 M10.09 Idiopathic hypercalcemia 321151754 E83.52 Depressive disorder 3548 9007 F32.A Polyarthropathy 05532404 M13.0 Obesity 413554559 E66.9 Osteoporosis 13103219 M8 1.0 Obstructiv e sleep apnea syndrome 07193409 G47.33 Hyperlipidemia 42188841 E78.5 Liver enzy mes level above reference range 794027139 R74.01 resolved Osteoarthr itis of knee 949948244 M17.9 Hyperparathyroidism 6699 9008 E21.3 54338 [id number] Michael Faye MD [facility] [address] [address] 02/08/2025 09:32:11 02/08/2025 10:09:42 Gouty arthropathy 998549182 M10.09 Hypertensive disorder 38 520370 I10 Idiopathic hypercalcemia 657244691 E83.52 Depressive disorder 3548 9007 F32.A Polyarthropathy 53523224 M13.0 Obesity 166920762 E66.9 Osteoporosis 71935897 M8 1.0 Obstructiv e sleep apnea syndrome 63284361 G47.33 Hyperlipidemia 88165260 E78.5 Liver enzy mes level above reference range 982365052 R74.01 resolved Osteoarthr itis of knee 909467018 M17.9 Hyperparathyroidism 6699 9008 E21.3 75232 Dysuria 27672816 R30.0 20753 Health Concerns Section Related Observation LastModified by Organization Detai ls LastModified Time None Recorded Concern Status LastModified by Organization Details LastModified Time None Recorded Advance Directives Directive Y: Payers Insurance Date Sequence Insurance Name Policy Number Policy Dunham Covered Member ID Dunham Member ID Guarantor Name 02/05/2025 1 [facility] (MEDICARE REPLACEMENT/A DVANTAGE - HMO) [id number] Rody Monson [id number] Rody Monson Notes Date Note Type Note Provider Name and Address Organization Details Recorded Time 07/21/2024 text/html FUV + ACV: C/o urinary [...] supplements by them. Michael Faye MD [address], [place], [address], [employer] 07/21/2024 14:54:26 08/17/2024 text/html ACV: C/o cough, congestion, drainage for last 3 weeks, on/off. Pt has been doing otc meds and its still not getting better. Due to cough, she is c/o middle back area pain too. Denies any recent fall/trauma. Michael Faye MD [address], [place], [address], [employer] 08/17/2024 15:14:28 09/21/2024 text/html Pt is here for her annual exam. Doing overall better. Denies any problem with meds. Denies any new concern. Still has lot of urinary issues and she called yesterday to be started on Amoxicillin for it. Pt is f/u with Uro at [facility] for her recurrent UTIs and kidney stones [...] Faye MD [address], [place], [address], [employer] 09/21/2024 14:29:00 10/05/2024 text/html Pt is here for f/u on her annual labs. Doing overall better. Denies any problem with meds. Denies any new concern. Pt is f/u with Uro at [facility] for her recurrent UTIs and kidney stones [...] supplements by them. Michael Faye MD [address] [facility] [address] [facility], [place], [address], [facility] [employer] 10/05/2024 10:32:33 02/08/2025 text/html FUV + ACV: C/o urinary urgency and frequency for last 4-5 days. Pt did home urine dipstick and shows positive for UTI. Pt is requesting Augmentin for it. Pt will be seeing new Uro on 02/22/25 for her recurrent UTIs. Pt is here for f/u on her lab and chronic conditions. Doing overall better. Denies any problem with meds. Pt has not gone for lab yet. Pt is f/u with Uro at [facility] for her recurrent UTIs and kidney stones and got lithotripsy done for it. Pt got more testing done with them [...] supplements by them. Michael Faye MD [address], [place], [address], [facility] [employer] 02/08/2025 10:30:07 OBGyn Episode No OBEpisode recorded.
--- OUTSIDE RECORDS SUMMARY | 2025-03-08 14:35 | XMS_ITS | Clinical Summary ---
Author Organization [facility] Address [address] [place] [address] Care Team Providers Care Machine Joiner Cementer Name Role Phone Fabiola Melo MD Unavailable [phone] Brittany Elias MD Primary Care Provider Source Comments [facility],non-owned Affiliates and Associated Physician Practices is amultiple site organization consisting of ambulatory clinics and hospital sitesin [place], [place], [place] and [place]. This disclosure is being madepursuant to the Care Everywhere program and may not contain all information available regarding this patient. 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 Gender Identity Not on file Sexual Orientation [...] series) 2014 SCREENING FOR DIABETES 01/18/2021 01/18/2018 DEPRESSION SCREENING 05/25/2024 COVID-19 VACCINE ( - season) 2025 INFLUENZA VACCINE (#1) 2025 8, 04/28/2016, 02/23/2015, [...] this topic Medical Devices Implanted Type Area Baker Doughnut Device Identifier Shelf Expiration Date Model / Serial / Lot Cmnt Bone Cblt 40gm Hvisc Strl Implanted:Qty: 1 on 02/11/2018 by Toño Johnston MD at [facility] Left: Knee [employer] 02/21/2019 [id number] / / [id number] Cmpnt Ptlr 28mm 1 Pg Wire Ascnt Arcm Kn Implanted:Qty: 1 on 02/11/2018 by Toño Johnston MD at [facility] Left: Knee [employer] 01/29/2023 [id number] / / [id number] Tray Tib 71mm Kn Cocr I Beam Implanted:Qty: 1 on 02/11/2018 by Toño Johnston MD at [facility] Left: Knee [employer] 12/02/2027 [id number] / / [id number] Cmpnt Fem Kn Lt Cr Cmnt Prm Vngrd Intlk Implanted:Qty: 1 on 02/11/2018 by Toño Johnston MD at [facility] Left: Knee [employer] 10/21/2027 [id number] / / [id number] Brng 39col11dn Vngrd Arcm Kn Ant Stab Implanted:Qty: 1 on 02/11/2018 by Toño Johnston MD at [facility] Left: Knee [employer] 12/22/2022 [id number] / / [id number] Procedures Procedure Name Priority Date/Time Associated Diagnosis [...] LAB - CHEMISTRY ORDERABLES Fi nal Result [facility] [address] [place] [address] from Last 3 Months or Most Recently Relevant to Health Maintenance Insurance [facility] Advance Directives * Full Code (Latest Code Status on File) Date Activated Date Inactivated Comments 02/11/2018 11:11 AM 02/14/2018 1:10 PM Care Teams Machine Joiner Cementer Relationship Specialty Start Date End Date Brittany Elias MD [address] [place] [phone] PCP - General 05/26/19 [place] [address] [address] Orthopedic Surgery 06/06/14
--- OUTSIDE RECORDS SUMMARY | 2025-03-08 14:35 | XMS_ITS | Clinical Summary ---
Author Organization [facility] Address [address] [place] [address] Phone Care Team Providers Care Optic Fibre Drawer Name Role Phone Daly Pinto REHABILITATION TECHNICIAN, MANUFACTURED BUILDINGS SUPERVISOR Primary Care Pro vider Medications Aspirin 81 [...] Comments Blood Pressure 130/86 04/08/2019 8:56 AM [employer] Pulse 70 04/08/2019 8:56 AM [employer] Temperature - - Respiratory Rate - - Oxygen Saturation 98% 04/08/2019 8:56 AM [employer] Inhaled Oxygen Concentration - - Weight 108 kg (238 lb) 04/08/2019 8:56 AM [employer] Height 160 cm (5' 3) 04/08/2019 8:56 AM [employer] Body Mass Index 42.16 04/08/2019 8:56 AM [employer] Plan of Treatment Health Maintenance Due Date Last Done Comments Hepatitis C Virus (HCV) Screening 1955 Cologuard 11/11/1999 Immunochemical Fecal Occult Blood 11/11/1999 Pneumococcal Immunization (50+ years) (1 of 1 - PCV) 2004 Zoster Immunization (2 of 3) 04/19/2015 02/22/2015 Influenza Immunization (#1) 01/23/202501/24, 04/28/2016, 02/22/2015, Additional history exists SARS-COV-2 Immunization (1 - season) 2025 Colonoscopy 05/12/2026 05/12/2019 Colorectal Cancer Screening 05/12/2026 [...] Most Recently Relevant to Health Maintenance Insurance [facility] Care Teams Optic Fibre Drawer Relationship Specialty Start Date End Date Daly Pinto APRN, MANUFACTURED BUILDINGS SUPERVISOR [address] [place] [address] PCP - General Certified Nurse Practitioner 11/02/18
== END 2025-03-08 12:47 | disposition home or self-care (01) ==
LOC: ANHSURGERY 12:51
PROVIDERS: Anesthesiology; PCP Family Medicine; Visit Provider Urology
DX: Z01.818 Encounter for other preprocedural examination (principal); Z51.81 Encounter for therapeutic drug level monitoring
CPT/HCPCS: 36415; 80048

== ENCOUNTER 2025-03-14 00:36 | Day surgery (SDC) | payer MEDICARE, SELFPAY ==
--- OUTSIDE RECORDS SUMMARY | 2009-04-02 10:15 | XMS_ITS | Continuity of Care Document ---
Author Organization [facility] Address [address] [place] [address] Phone Care Team Providers Care Linen Controller Name Role Phone Tomas Clayton Unavailable Unavailable Procedures Procedure Date Eye Exam Established Pt Ophthalmoscopy, Subsequent Office Consultation Ophthalmoscopy Advance Directives Directive Yes / No Effective Date File Name No Information Encounters Encounter Description Practice Location Reason(s) For Visit Diagnoses Date Provider Providers Copied on Encounter [facility], [address] [place] [address] [address], [place], [place], [id number], tel:[phone] [facility] No Information 9 9 Matilde Marin. [address] [place], [place], [facility], . [phone] Referring Provider: Tomas Berg, [address] [place], [place], [facility]. tel:[phone] Office Consultation [facility], [address] [place] [address] [address], [place], [place], [id number], tel:[phone] [facility] No Information [address] Marin. [address] [place], [place], [facility], [place]. tel:[phone] Referring Provider: Marcio Lagunas, [address], [place], [place], [facility]. tel:[phone] Family History Family Member Type Diagnosis Age At Onset No Information Payers Payer name Insurance type Covered republican ID Authoriza tion(s) No Information Social History [...]
[2025-03-07 11:32] VITALS: BMI 40.6
--- NOTE | 2025-03-07 11:58 | PC.NURSE ---
[facility] has started construction of its new state of the art ER which will open Spring 2026. With this, we anticipate parking may be a challenge for some our surgical patients and families. Parking spaces are limited but are available for all Surgical, obstetrics, and ER patients sharing this lot. If you arrive and find you are having a hard time finding a parking space, please note that we understand the challenges, please drive around the hospital and park near Hospital Entrance 1. When you enter this entrance, you can ask a volunteer to direct or take you back to the surgical waiting area to check in. We appreciate everyone?s understanding of these expected challenges while we build for your future. Report to the Outpatient Waiting Room, entrance under the green pavilion located off [address], at time __6:00AM___ on date __03/14/25___. Planned Procedure Time: ___7:30AM___.? Time changes happen often and if your time is changed the preop area will call you the afternoon before. - You and your visitor will be asked to self-screen and do not enter if you have any COVID symptoms. Please call surgeon if you need to reschedule. - A mask is optional within the hospital at this time. Patients may have clear liquids (water, carbonated beverages, clear teas, apple juice) until 3 hours prior to surgery (4:30AM) with a maximum of 20 ounces. - No food from midnight until time of surgery and no smoking, or chewing tobacco (or any form of nicotine). No chewing gum, candy or mints. Take only the following medications with a SIP of water on the morning of surgery: ___AMLODIPINE, CEPHALEXIN MAY TAKE/USE ALBUTEROL INHALE & TRAMADOL NEEDED DO NOT STOP ANY OF YOUR OTHER PRESCRIPTION MEDICATIONS PRIOR TO SURGERY EXCEPT THE FOLLOWING Medications to discontinue per physician __HOLD ASPIRIN, MELOXICAM(ALL NSAIDS) & FISH OIL 7 DAYS PRE-OP PER DR BURROWS__ Date to take last dose 03/06/25 Please no make-up, nail bruneian, hairspray, perfume, deodorant, or body powder the day of surgery.? No jewelry (including any body piercings) or valuables the day of surgery, leave them at home.? Please take a shower or bath the night before, or the morning of, surgery with an antibacterial soap.? Wear comfortable, loose fitting clothing.? - Jewelry must be removed prior to entering the operating room.? Rings and piercings that are not removed may be cut off. - The hospital will not accept responsibility for valuables.? - Please leave all valuables, including medications, at home the day of surgery. If you are going home after surgery, a licensed winch driver must drive you home.? - NO public transportation without another adult if you receive anesthesia. - We recommend that an adult stay with you for 24 hours following discharge. - We also recommend that you do not drive, make important decision, drink alcoholic beverages, or take any drugs that were not prescribed by your health care provider for at least 24 hours after your discharge time. Follow any additional instructions given to you from your surgeon. Telephone instructions given to ____PATIENT and asked if any additional questions and then verbalized understanding. Patient advised to call surgeon office or pre surgery nurse liaison [phone] if any additional questions.
[2025-03-14] VITALS (7 sets, daily range): BP systolic 131–148; BP diastolic 60–76; PULSE 70–88; RESP 14–18; TEMP 36.2–36.5; O2SAT 92–99; BMI 39.4
--- NOTE | ~2025-03-14 | XR_ITS ---
EXAMINATION: XR retrograde pyelo w/stent LT DATE: 03/14/2025 08:31 INDICATION: Left internal ureteral stent placement TECHNIQUE: Fluoroscopic images from a left internal ureteral stent placement are submitted for review. 33 seconds of fluoroscopy time. 5 fluoroscopic images FINDINGS: There is a left double-J internal ureteral stent projecting in expected position, with proximal Edison loop at the level of the renal pelvis and distal loop in the pelvis within the bladder lumen. IMPRESSION: 1. Left internal ureteral stent placement. Please refer to real-time procedural findings for details. Reviewed, dictated and finalized at location O. IMPRESSION: 1. Left internal ureteral stent placement. Please refer to real-time procedur al findings for details.
--- OUTSIDE RECORDS SUMMARY | 2025-03-14 00:40 | XMS_ITS | Clinical Summary ---
Author Organization [facility] Address [address] [place] [address] Phone Care Team Providers Care Rug Cutter Helper Name Role Phone Daly Pinto NP Primary Care Provider [phone] Allergies Active Allergy Reactions Criticality Noted Date [...] exists Insurance [employer] MEDICARE Care Teams Rug Cutter Helper Relationship Specialty Start Date End Date Daly Pinto NP [address] [address] PCP - General Family Medicine 10/19/18
--- OUTSIDE RECORDS SUMMARY | 2025-03-14 00:40 | XMS_ITS | Clinical Summary ---
Author Organization [facility] Address [address] [place] [address] Phone Care Team Providers Care Community Organization Aide Name Role Phone Daly Pinto DRAWING KILN SUPERVISOR, [employer] Primary Care Pro vider Medications Aspirin 81 [...] Comments Blood Pressure 130/86 04/08/2019 8:56 AM KITCHEN SUPERVISOR Pulse 70 04/08/2019 8:56 AM KITCHEN SUPERVISOR Temperature - - Respiratory Rate - - Oxygen Saturation 98% 04/08/2019 8:56 AM KITCHEN SUPERVISOR Inhaled Oxygen Concentration - - Weight 108 kg (238 lb) 04/08/2019 8:56 AM KITCHEN SUPERVISOR Height 160 cm (5' 3) 04/08/2019 8:56 AM KITCHEN SUPERVISOR Body Mass Index 42.16 04/08/2019 8:56 AM KITCHEN SUPERVISOR Plan of Treatment Health Maintenance Due [...] Most Recently Relevant to Health Maintenance Insurance [facility] Care Teams Community Organization Aide Relationship Specialty Start Date End Date Daly Pinto APRN, [employer] [address] [place] [address] PCP - General Certified Nurse Practitioner 11/02/18
--- NOTE | 2025-03-14 06:49 | WPDANESEPPF ---
Anes - Initial Pre Proc Eval Procedure: Operation Date: 03/14/25 07:30 Proposed Procedures p Cystoscopy, Left Ureteroscopy, Left Retrograde Pyelogram, Holmium Laser Lithotripsy, Left Ureteral Stone Basket Extraction, Left Ureteral Stent Placement - Lul Huynh MD Date/Time: 03/14/25 06:49 Surgeon: Lul Huynh MD Pre Op Diagnosis: Left Renal Stones Patient Data Age: 69 Gender: F Height: 1.6 m Weight: 104 kg Allergies Allergy/AdvReac Type Severity Reaction Status Date / Time nitrofurantoin (From Allergy Severe Anaphylaxis Verified 03/07/25 11:21 Macrobid) Sulfa (Sulfonamide AdvReac Mild NAUSEA/VOMI Verified 03/07/25 11:21 Antibiotics) TING Home Medications ?Medication ?Instructions ?Recorded ?Confirmed ?Type aspirin 81 mg tablet,delayed 81 mg PO DAILY 05/10/19 03/07/25 History release (Aspir-) losartan 100 mg tablet 100 mg PO QAM 05/10/19 03/07/25 History cetirizine 10 mg tablet (Allergy 10 mg PO DAILY PRN allergy symptoms 09/09/22 03/07/25 History Relief (cetirizine)) tramadol 50 mg tablet 50 mg PO Q6H PRN pain 09/09/22 03/07/25 History triamterene 37.5 1 cap PO DAILY 09/30/22 03/07/25 History mg-hydrochlorothiazide 25 mg capsule allopurinol 300 mg tablet 300 mg PO DAILY 10/22/23 03/07/25 History epinephrine 0.3 mg/0.3 mL 0.3 mg (0.3 mL) IM ONCE #1 ea 06/15/24 03/07/25 Rx injection, auto-injector (EpiPen) albuterol sulfate 90 mcg/actuation 2 puff inhalation Q6H PRN 09/30/24 03/07/25 History aerosol inhaler shortness of breath or wheezing amlodipine 10 mg tablet 10 mg PO QAM 09/30/24 03/07/25 History cephalexin 250 mg capsule 250 mg PO QAM 09/30/24 03/07/25 History meloxicam 7.5 mg tablet 7.5 mg PO BID 09/30/24 03/07/25 History omega 0-sia-agg-fish oil 1,000 mg 1 cap PO DAILY 09/30/24 03/07/25 History (120 mg-180 mg) capsule (Fish Oil) rosuvastatin 5 mg tablet 5 mg PO DAILY 09/30/24 03/07/25 History oxybutynin chloride 5 mg tablet 5 mg PO BID PRN bladder spasms #30 10/14/24 03/07/25 Rx tabs tramadol 50 mg tablet 50 mg PO Q6H PRN pain #20 tabs 10/14/24 03/07/25 Rx Patient hx anesthesia problems: none Family hx anesthesia problems: none Results Review: All pre-operative results and documents have been reviewed as part of the pre-operative evaluation. [facility] Past Medical History Medical History Allergies Arthritis Hx of renal calculi Hx of adenomatous polyp of colon Sleep apnea Rosacea Hypertension Functional dyspepsia GERD (gastroesophageal reflux disease) Surgical History Surgical History H/O tubal ligation History of left knee replacement History of right oophorectomy History of lithotripsy Hx of section Hx of cholecystectomy Hx of esophagogastroduodenoscopy Hx of colonoscopy Family History Family History Mother Hypertension Father Cerebral aneurysm Other Breast cancer Social History Social History Smoking packs per day: 1 Smoking cigarettes per day: 20.0 Years smoked: 20 Smoking pack-years: 20.00 Smoking status: Former smoker Tobacco type: cigarettes Smoking end date: 11/22/89 Alcohol intake: current Drinks per week: 1 Substance use: never Lack of Transportation: No Lack of Food: Never True Current Housing: I Have Housing Concerned About Future Housing: No Difficulty Paying Gas/Electric Bills: No Difficulty Paying for Meds: No Currently Unemployed: No Education: Trade/Vocational Certificate Difficulty w/ Childcare or Family Care: No Living arrangements: with family Additional living arrangements comments: [facility] Spiritual care concerns: No Anes - Eval Final PreProcedure Day of Procedure 03/14/25 06:49 Patient weight: morbidly obese Heart: regular rate and rhythm Lungs: clear to auscultation Airway: Mallampati scale class III Neurological: alert and oriented Last oral intake: >/= 8 hours ASA classification: III Emergent: no Anesthetic plan: proceed Anesthesia type and monitoring: general LMA and standard monitoring Results Review: All pre-operative results and documents have been reviewed as part of the pre-operative evaluation. Informed Consent: The patient's anesthetic plan and its attendant risks and benefits were discussed with the patient/family/POA. Questions were solicited and answers provided to the satisfaction of the patient/family/POA.
[2025-03-14] MEDS: LACTATED RINGERS 1,000 ML 30 ML IV CONT (07:00)
--- NOTE | 2025-03-14 07:24 | PM.HPGS ---
History of Present Illness History of Present Illness Consent: Risks, benefits, and alternatives have been discussed and questions answered. Patient agrees to proceed with procedure. Chief complaint: Left Renal Stones Narrative: Rody Monson is a 69 year old female With history of urolithiasis who presents today for endoscopic management left renal stones. Patient is status post left ESWL September 2024. Follow-up imaging revealed residual 1.5 cm stone in the left kidney. Patient recently completed a course of Augmentin for E coli UTI. She denies any changes Passer baseline today and is ready for the procedure. Review of Systems Review of Systems: All systems reviewed & are unremarkable except as noted in HPI and below PMFSH Past Medical History Medical History Allergies Arthritis Hx of renal calculi Hx of adenomatous polyp of colon Sleep apnea Rosacea Hypertension Functional dyspepsia GERD (gastroesophageal reflux disease) Surgical History Surgical History H/O tubal ligation History of left knee replacement History of right oophorectomy History of lithotripsy Hx of section Hx of cholecystectomy Hx of esophagogastroduodenoscopy Hx of colonoscopy Family History Family History Mother Hypertension Father Cerebral aneurysm Other Breast cancer Social History Social History Smoking packs per day: 1 Smoking cigarettes per day: 20.0 Years smoked: 20 Smoking pack-years: 20.00 Smoking status: Former smoker Tobacco type: cigarettes Smoking end date: 11/22/89 Alcohol intake: current Drinks per week: 1 Substance use: never Lack of Transportation: No Lack of Food: Never True Current Housing: I Have Housing Concerned About Future Housing: No Difficulty Paying Gas/Electric Bills: No Difficulty Paying for Meds: No Currently Unemployed: No Education: Trade/Vocational Certificate Difficulty w/ Childcare or Family Care: No Living arrangements: with family [facility] Spiritual care concerns: No Meds Home Medications and Allergies Home Medications ?Medication ?Instructions ?Recorded ?Confirmed ?Type aspirin 81 mg tablet,delayed 81 mg PO DAILY 05/10/19 03/07/25 History release (Aspir-) losartan 100 mg tablet 100 mg PO QAM 12/17/19 10/14/25 History cetirizine 10 mg tablet (Allergy 10 mg PO DAILY PRN allergy symptoms 09/09/22 03/07/25 History Relief (cetirizine)) tramadol 50 mg tablet 50 mg PO Q6H PRN pain 09/09/22 03/07/25 History triamterene 37.5 1 cap PO DAILY 09/30/22 03/07/25 History mg-hydrochlorothiazide 25 mg capsule allopurinol 300 mg tablet 300 mg PO DAILY 10/22/23 03/07/25 History epinephrine 0.3 mg/0.3 mL 0.3 mg (0.3 mL) IM ONCE #1 ea 06/15/24 03/07/25 Rx injection, auto-injector (EpiPen) albuterol sulfate 90 mcg/actuation 2 puff inhalation Q6H PRN 09/30/24 03/07/25 History aerosol inhaler shortness of breath or wheezing amlodipine 10 mg tablet 10 mg PO QAM 09/30/24 03/14/25 History cephalexin 250 mg capsule 250 mg PO QAM 09/30/24 03/14/25 History meloxicam 7.5 mg tablet 7.5 mg PO BID 09/30/24 03/07/25 History omega 1-ggy-ywf-fish oil 1,000 mg 1 cap PO DAILY 09/30/24 03/07/25 History (120 mg-180 mg) capsule (Fish Oil) rosuvastatin 5 mg tablet 5 mg PO DAILY 09/30/24 03/07/25 History oxybutynin chloride 5 mg tablet 5 mg PO BID PRN bladder spasms #30 10/14/24 03/07/25 Rx tabs tramadol 50 mg tablet 50 mg PO Q6H PRN pain #20 tabs 10/14/24 03/07/25 Rx Allergies Allergy/AdvReac Type Severity Reaction Status Date / Time nitrofurantoin (From Allergy Severe Anaphylaxis Verified 03/14/25 06:56 Macrobid) Sulfa (Sulfonamide AdvReac Mild NAUSEA/VOMI Verified 03/14/25 06:56 Antibiotics) TING Vital Signs Vital Signs - 24 hr 03/14/25 06:58 Temperature 36.5 C Pulse Rate 70 Blood Pressure 138/60 Pulse Oximetry 98 Oxygen Delivery Room Air Exam Const: General: no acute distress and alert HENMT: Head: normal to inspection and atraumatic Eyes: Pupils: Equal, round and reactive pupils present Neck: Neck: normal visual inspection and full ROM Chest: Chest palpation & inspection: normal inspection of the chest Resp: Effort & Inspection: normal respiratory effort and no audible wheezes Cardio: Rate: regular rate GI: Inspection: normal to inspection and non-distended : General: Yes deferred Skin: General skin exam: normal color and no rashes or lesions noted Neuro: General: patient oriented x3 Extrem: General: normal to inspection and full ROM Psych: Appearance: grossly normal and well kempt Assessment and Plan Assessment and plan (1) Left renal stone: Code(s): N20.0 - Calculus of kidney Status: Acute Assessment and Plan: 69yF with left renal stones Plan To OR for cystoscopy, left retrograde pyelogram, ureteroscopy, laser lithotripsy, stone basket extraction, left ureteral stent placement Risks, benefits, alternatives reviewed. Patient is amenable to proceed Anticipate discharge home following her procedure today
--- NOTE | 2025-03-14 07:29 | WPDHPUPDATE1 ---
History and Physical Update Update Date/Time: 03/14/25 07:29 History and Physical has been reviewed, including an updated exam of the patient. There are NO changes in the patient's condition. Risks, benefits, and alternatives have been discussed and questions answered. Patient agrees to proceed with procedure.
[2025-03-14] MEDS: ceFAZolin 2 GM in SODIUM CHLORIDE 0.9% IV 50 ML 100 ML IVPB (07:38)
--- NOTE | 2025-03-14 07:56 | CY_PTH ---
PATIENT: Rody Monson LOC: [facility] U#:[id number] AGE/SX: 69/F ROOM: RE03/14/[address]: Lul Huynh MD : 1955 BED: DIS: 03/14/2025 SPEC #: [id number] RECD: 03/14/25 08:16 STATUS: KAVYA REQ #: [id number] ABHI: 03/14/25 07:[address]: Lul Huynh DEPT: [facility] Cytology RECD BY: Rea Fleming ENTERED: 03/14/25 08:18 SP TYPE: Cytology OTHR DR: Michael FayeMD Tissues: A - Urine Procedures: Cytopathology Cytospin
--- NOTE | 2025-03-14 08:29 | S_PTH ---
PATIENT: Rody Monson LOC: [facility] U#:[id number] AGE/SX: 69/F ROOM: RE03/14/[address]: Lul Huynh MD : 1955 BED: DIS: 03/14/2025 SPEC #: [id number] RECD: 03/14/25 10:33 STATUS: KAVYA REQ #: [id number] ABHI: 03/14/25 08:[address]: Lul Huynh DEPT: [facility] Surgical RECD BY: Rea Fleming ENTERED: 03/14/25 10:33 SP TYPE: Surgical OTHR DR: Michael Faye, Tissues: A - Stone Procedures: Gross Exam Level 1 Crystalline Analysis
--- NOTE | 2025-03-14 08:42 | P.OP_ITS ---
Procedure Note - Detailed Date of Procedure 03/14/25 Pre-op Diagnosis Left Renal Stones Post-op Diagnosis Same Procedure Performed 1. Cystoscopy 2. Left retrograde pyelogram with intraoperative interpretation 3. Left ureteroscopy 4. Laser lithotripsy 5. Stone basket extraction 6. Left ureteral stent placement Surgeon Lul Huynh MD Anesthesia General Findings 1. Duval cystoscopy revealed orthotopic ureteral orifices bilaterally with no suspicious lesions, tumors, active bleeding, or stones in the lower urinary tract 2. Left retrograde pyelogram using a 50 50 mixture of contrast and saline showed no hydroureteronephrosis, contrast extravasation; there were filling defects in the left renal pelvis commensurate with patient's prior CT scan 3. Left ureteroscopy and renal endoscopy revealed four fairly large stones in the left renal pelvis. There were no other stones appreciated in the left col lecting system. 4. Successful laser lithotripsy of the aforementioned stones into sub 1 mm fragments 5. Successful left ureteral stent placement without strings attached Description of Procedure After informed consent had been obtained, the patient was brought back to the operating theater and placed in supine position on the operating table whereupon anesthesia was induced. She was placed in a dorsal lithotomy position prepped and draped in a sterile fashion for an endoscopic case. All pressure points were padded. Sequential compression devices were on and noted to be functioning. Preoperative antibiotics were administered. A formal time-out was performed to confirm the correct patient, site, and procedure an argument to proceed. To begin with, I atraumatically advanced a lubricated 22 Cymraes cystoscope transurethrally the patient's bladder. Bladder urine was obtained as a specimen to be sent for urine culture. I then turned my attention the left ureteral orifice which was cannulated with a Sensor wire; over top of the wire we passed this 5 Cymraes open-ended catheter to the level of the left distal ureter then removed the Sensor wire. A left-sided retrograde pyelogram was performed by injecting 50 50 mixture of contrast and saline through the open-ended catheter with findings as noted above. I then replaced a Sensor wire through the open- ended catheter up the level of the left kidney under fluoroscopy. I then removed the cystoscope and secured the Sensor wire to the drapes with a hemostat. I then reinserted the cystoscope transurethrally into the patient's bladder with attention to the left ureteral orifice, which was cannulated with a 2nd, safety Glidewire which was also advanced up to the level of left kidney under fluoroscopy. I then removed the cystoscope and advanced a 11/13 Cymraes 36 cm ureteral access sheath over the Glidewire under direct fluoroscopic guidance and this was advanced up the level of the left proximal ureter. I then removed the inner sheath and advanced a flexible digital ureteroscope through the outer sheath and performed left ureteroscopy and renal endoscopy. Patient was noted to have 4 fairly large stones in the renal pelvis. The upper, mid, and lower poles were also explored and no other stones were appreciated. I then used a 200 micron laser fiber to fragment these stones into sub 1 mm fragments. The stones were quite soft and broke up nicely. Afterwards, I re-explored the left kidney and no sizable stone fragments were appreciated to be remaining. I then used a ZeroTip Nitinol basket to grasp some stone fragments which were sent off for kidney stone analysis. I then performed another left-sided retrograde pyelogram through the ureteroscope in order to delineate the left collecting system in anticipation of stent placement. I then performed pullback ureteroscopy while simultaneously removing the access sheath and noted no significant ureteral injury or stones. Next, with the ureteroscope and access sheath removed, I backloaded the cystoscope onto the Sensor wire was advanced transurethrally into the patient's bladder with attention drawn to left ureteral orifice. Over top of the wire we passed a 6 Cymraes variable length double-J ureteral stent without strings attached and used the pusher to deploy the stent in place. I confirmed a good proximal curl in left kidney under fluoroscopy and a good distal curl in the bladder under both direct cystoscopic and fluoroscopic vision. Lastly, I drained the patient's bladder removed the cystoscope, essentially concluded the case. The patient tolerated the procedure well and there were no immediate complications noted. She was awoken from anesthesia and taken to recovery in stable condition. At the close case, all sponge, instrument, sharp counts were correct x2. Disposition: Patient will be monitored in the PACU and be discharged home with clearing PACU protocol. She will follow up in about 1-2 weeks for office cystoscopy and left ureteral stent removal. Patient's was provided enough the following procedure all questions were answered to his satisfaction at the conclusion of our discussion
== END 2025-03-14 10:14 | disposition home or self-care (01) ==
PROVIDERS: PCP Family Medicine; Visit Provider Urology
PROC: (CPT 52352; principal; 2025-03-14 07:30)
DX: N20.0 Calculus of kidney (principal); Z87.891 Personal history of nicotine dependence; E66.01 Morbid (severe) obesity due to excess calories; Z68.39 Body mass index [BMI] 39.0-39.9, adult
CPT/HCPCS: 52356; 74420; 82365; 88108; 88300; J0690; C1758; C1769; C2617; J1100; J2003; J2250; J2405; J2704; J3010; J7120; Q9966

== ENCOUNTER 2025-03-26 01:32 | Day surgery (SDC) | payer MEDICARE, SELFPAY ==
--- OUTSIDE RECORDS SUMMARY | 2009-04-02 09:15 | XMS_ITS | Continuity of Care Document ---
Author Organization [facility] Address [address] [place] [address] Phone Care Team Providers Care Parts Salesman Name Role Phone Tomas Clayton Unavailable Unavailable Procedures Procedure Date Eye Exam Established Pt Ophthalmoscopy, Subsequent Office Consultation Ophthalmoscopy Advance Directives Directive Yes / No Effective Date File Name No Information Encounters Encounter Description Practice Location Reason(s) For Visit Diagnoses Date Provider Providers Copied on Encounter [facility], [id number] [place] [address] [address], [place], [place], [id number], tel:[phone] [facility] No Information 9 9 Matilde Marin. [address] [place], [place], [place], . [phone] Referring Provider: Tomas Berg, [address] [place], [place]. tel:[phone] Office Consultation [facility], [address] [place] [address] [address], [place], [place], [id number], tel:[phone] [facility] No Information [address] [place], [place], [place]. tel:[phone] Referring Provider: Marcio Lagunas, [address], [place], [place], [place]. tel:[phone] Family History Family Member Type Diagnosis Age At Onset No Information Payers Payer name Insurance type Covered constitution party ID Authoriza tion(s) No Information Social History Type Description Quantity Date Captured Comments Sex Female Smoking Status No Information Chief Complaint And Reason For Visit No Information Reason For Referral Reason For Referral No Information History Of Present Illness Encounter Date Complaint History Of Prese nt Illness No Information Functional Status Date Functional Assessmen t No Information Instructions Date Instruction Additional Infor mation No Information Assessments Type Assessment Date No Information Patient Care Teams Name Effective Dates (start - stop) Status Members No Information
[2025-03-26] VITALS (12 sets, daily range): BP systolic 125–182; BP diastolic 62–83; PULSE 69–86; RESP 14–19; TEMP 36.6–36.8; O2SAT 92–100
--- NOTE | ~2025-03-26 | CT_ITS ---
CT ABDOMEN AND PELVIS WITHOUT CONTRAST Clinical History: left flank pain, recent lithotrip and stent Comparison: CT abdomen and pelvis 12/14/2024 Technique: Unenhanced axial images lung bases to symphysis pubis Coronal, sagittal reformats CT images acquired with automatic exposure control for dose reduction DLP: 920 mGy-cm Findings: Without intravenous contrast, sensitivity for detecting visceral parenchymal abnormalities decreased. Lung bases: Clear. Visualized heart and pericardium: Unremarkable. Liver: Enlarged. Steatosis. Early cirrhosis. Gallbladder: Removed. Spleen: Unremarkable. Pancreas: Unremarkable. Adrenal glands: Unremarkable. Kidneys: Right kidney- No hydronephrosis. No renal stones. Left kidney- Hydronephrosis. Perinephric stranding. Small stone. Proximal ureteral hyperdense foci. Distal esophagus/stomach: Small hiatal hernia. Small bowel loops: Normal caliber and wall thickness. Colon: Diverticula. Normal caliber and wall thickness. Normal RLQ appendix. Nodes: No enlarged nodes. Peritoneum: No ascites. No free intraperitoneal air. Urinary bladder: Unremarkable. Uterus: Unremarkable. Adnexa: No masses. Bones: No acute bony abnormality. Soft tissues: Unremarkable. Unopacified abdominal aorta: No aneurysmal dilatation. IMPRESSION: 1. Hydronephrosis left kidney due to below. 2. Proximal left ureter linear hyperdense focus likely tandem stones. Less likely retained catheter fragment. 3. Additional findings as above. Reviewed, dictated and finalized at location R. MIXER IMPRESSION: 1. Hydronephrosis left kidney due to below. 2. Proximal left ureter linear hyperdense focus likely tandem stones. Less lik hannah retained catheter fragment. 3. Additional findings as above.
--- NOTE | ~2025-03-26 | XR_ITS ---
EXAMINATION: XR retrograde pyelo w/stent LT INDICATION: STONE . COMPARISON: CT from same day TECHNIQUE: Fluoroscopic video images of the left abdomen and pelvis were obtained during retrograde pyelogram with. Fluoroscopy exposure time was 34.1 seconds. Air Kerma 19.33 mGy. DAP 1.17 mGym2. FINDINGS/IMPRESSION: No radiologist was present or involved at the time of the procedure. Static images were submitted for interpretation. Images demonstrate opacification of the left ureter. The left renal collecting system is dilated consistent with mild to moderate hydronephrosis. Fluoroscopic documentation of left retrograde pyelogram with ureteral stent placement. Please refer to the operative note for complete procedural details. Reviewed, dictated and finalized at location A. IST/OWNER
--- OUTSIDE RECORDS SUMMARY | 2025-03-26 01:46 | XMS_ITS | Data Portability ---
Author Organization [place] [facility] [employer], Main Office Address [address] [place] [address] Care Team Providers [facility] Supervisor Name Role Phone FAYE, MICHAEL Primary Care [...] in 2-3 months. Annual labs in 09/16. [email or web address] Not available 07/21/2024 12:22:19 09/21/2024 09/21/2024 68 [...] per schedule. Cont f/u with Uro at [place] as per schedule. Cont f/u with Ophtho [...] per schedule. Cont f/u with Uro at [place] as per schedule. Cont f/u with Ophtho [...] Lipids in 02/16. Annual labs in 09/17. [email or web address] Not available 10/05/2024 10:31:44 02/08/2025 02/08/2025 69 [...] per schedule. Cont f/u with Uro at [place] as per schedule. Cont f/u with Ophtho [...] Lipids in 05/18. Annual labs in 09/17. [email or web address] Not available 02/08/2025 10:29:21 Plan of Treatment Reminders Order Date Submit Date Provider Last Modified By Organization Details Last Modified Time Details Appointments Any 15 2024 08:30A Odin Faye MD Not available Not available Not available Lab urinalysi s, dipstick 2024 025 [email or web address] [facility], [address] [place] [address], [phone], 02/08/2025 10:03:34 culture, urine [address] (Lab), [address] [place], [address], 02/08/2025 10:20:09 lipid panel, serum 2024 025 [email or web address] [facility] (Lab), [address] [place], [address], 02/08/2025 10:03:34 lipid panel, serum [email or web address] [place] [address] (Lab), [address] [place], [address], 01/31/2025 14:30:14 PTH (parathyr oid hormone), intact + calcium, serum or plasma [address] (Lab), [address] [place], [address], 09/28/2024 10:09:27 urinalysi s, dipstick 2024 025 [facility], [address] [place] [address], [phone], 09/21/2024 14:45:15 CBC w/ auto diff [address] (Lab), [address] [place], [address], 09/21/2024 14:49:44 CMP, serum or plasma 2024 025 [facility] (Lab), [address] [place], [address], 09/21/2024 20:01:42 urinalysi s complete, reflex culture [address] (Lab), [address] [place], [address], 09/21/2024 14:48:30 uric acid, serum or plasma 2024 025 [facility] (Lab), [address] [place], [address], 09/21/2024 20:01:35 lipid panel, serum 2024 025 [facility] (Lab), [address] [place], [address], 09/21/2024 20:01:46 TSH, serum or plasma 2024 025 [facility] (Lab), [address] [place], [address], 09/21/2024 20:36:14 glycohemo globin, total, blood 2024 025 [facility] (Lab), [address] [place], [address], 09/21/2024 20:26:48 vitamin D, 25-hydrox y, total, serum 2024 025 [email or web address] [facility] (Lab), [address] [place], [address], 09/28/2024 10:09:27 urinalysi s, dipstick 2024 025 [facility], [address] [facility], [place], [address], 07/21/2024 12:23:41 culture, urine 2024 025 [facility] (Lab), [address] [place], [address], 07/22/2024 07:44:27 Referral endocrino logy referral - [place]. Please call patient to schedule an appointme nt. Thank you. 2024 025 [email or web address] Madeleine Mcbride MD, [address], [place], [address], 01/05/2025 09:27:53 urologist referral - Recurrent UTIs ++ Please call patient to schedule an appointme nt with Ap Greco. Thank you. 2024 025 [email or web address] [facility], [address] [place] [address] [address], [place], [address], 10/21/2024 09:33:25 Procedures None recorded. Surgeries None recorded. Imaging None recorded. Medication Orders phenazopy ridine 200 mg tablet 2024 025 [facility], [address], [place], [address], 02/22/2025 05:02:14 amoxicill in 875 mg-potass ium clavulana te 125 mg tablet 2024 025 [facility], [address], [place], [address], 02/08/2025 10:05:55 alendrona te 70 mg tablet 2024 025 [facility], [address], [place], [address], 02/08/2025 10:03:49 amlodipin e 5 mg tablet 2024 025 [facility], [address], [place], [address], 02/08/2025 10:03:49 losartan 100 mg tablet 2024 025 [facility], [address], [place], [address], 02/08/2025 10:03:47 triamtere ne 37.5 mg-hydroc hlorothia zide 25 mg capsule 2024 025 [facility], [address], [place], [address], 02/08/2025 10:03:48 rosuvasta tin 10 mg tablet 2024 025 [facility], [address], [place], [address], 02/08/2025 10:03:47 allopurin ol 300 mg tablet 2024 025 [facility], [address], [place], [address], 02/08/2025 10:03:50 meloxicam 7.5 mg tablet 2024 025 [facility], [address], [place], [place], [address], 02/08/2025 10:03:49 escitalop marty 10 mg tablet 2024 [facility], [address], [place], [place], [address], 02/08/2025 10:03:49 alendrona te 70 mg tablet 2024 [facility], [address], [place], [address], 10/05/2024 10:27:49 amlodipin e 5 mg tablet 2024 [facility], [address], [place], [place], [address], 10/05/2024 10:27:50 losartan 100 mg tablet 2024 [facility], [address], [place], [place], [address], 10/05/2024 10:27:46 triamtere ne 37.5 mg-hydroc hlorothia zide 25 mg capsule 2024 [facility], [address], [place], [address], 10/05/2024 10:27:50 rosuvasta tin 10 mg tablet 2024 [facility], [address], [place], [address], 10/05/2024 10:27:47 allopurin ol 300 mg tablet 2024 [facility], [address], [place], [place], [address], 10/05/2024 10:27:47 meloxicam 7.5 mg tablet 2024 [facility], [address], [place], [address], 10/05/2024 10:27:47 escitalop marty 10 mg tablet 2024 [facility], [address], [place], [address], 10/05/2024 10:27:49 alendrona te 70 mg tablet 2024 [facility], [address], [place], [address], 09/21/2024 14:15:45 amlodipin e 5 mg tablet 2024 [facility], [address], [place], [place], [address], 09/21/2024 14:15:41 losartan 100 mg tablet 2024 025 [facility], [address], [place], [place], [address], 09/21/2024 14:15:43 triamtere ne 37.5 mg-hydroc hlorothia zide 25 mg capsule 2024 025 [facility], [address], [place], [address], 09/21/2024 14:15:42 allopurin ol 300 mg tablet 2024 025 [facility], [address], [place], [address], 09/21/2024 14:15:41 rosuvasta tin 5 mg tablet [email or web address] [place] [address] Pharmacy [address], [address], [place], [place], [address], 10/05/2024 10:30:40 meloxicam 7.5 mg tablet [address] [facility], [address], [place], [address], 09/21/2024 14:17:29 escitalop marty 10 mg tablet 2024 [facility], [address], [place], [address], 09/21/2024 14:15:42 azithromy poli 250 mg tablet 2024 [facility], [address], [place], [place], [address], 08/17/2024 15:00:30 prednison e 10 mg tablet 2024 [facility], [address], [place], [place], [address], 08/17/2024 15:00:29 albuterol sulfate HFA 90 mcg/actua tion aerosol inhaler [address] [facility], [address], [place], [address], 08/17/2024 15:01:31 benzonata te 200 mg capsule 2024 [facility], [address], [place], [place], [address], 08/17/2024 15:00:30 cephalexi n 500 mg capsule [address] [facility], [address], [place], [address], 08/17/2024 14:35:51 alendrona te 70 mg tablet 2024 [facility], [address], [place], [address], 07/21/2024 12:05:25 losartan 100 mg tablet 2024 [facility], [address], [place], [address], 07/21/2024 12:05:30 triamtere ne 37.5 mg-hydroc hlorothia zide 25 mg capsule 2024 025 [facility], [address], [place], [address], 07/21/2024 12:05:23 amlodipin e 10 mg tablet 2024 [facility], [address], [place], [address], 07/21/2024 12:08:14 allopurin ol 300 mg tablet [address] [facility], [address], [place], [address], 07/21/2024 12:11:32 rosuvasta tin 5 mg tablet [address] [facility], [address], [place], [address], 10/05/2024 10:30:40 meloxicam 7.5 mg tablet 2024 025 [facility], [address], [place], [address], 07/21/2024 12:05:27 escitalop marty 10 mg tablet 2024 025 [facility], [address], [place], [address], 07/21/2024 12:05:26 Patient TargetsNo targets recorded. Patient Instructions Encounter Date Encounter Id Patient Instructions Last Modified By Organization Details Last Modified Time 07/21/2024 [id number] Starting a Weight-Loss Plan: Care Instructions [email or web address] Not available 07/21/2024 12:05:10 09/21/2024 [id number] Starting a Weight-Loss Plan: Care Instructions [email or web address] Not available 09/21/2024 14:15:29 10/05/2024 [id number] Starting a Weight-Loss Plan: Care Instructions [email or web address] Not available 10/05/2024 10:27:38 02/08/2025 [id number] Starting a Weight-Loss Plan: Care Instructions [email or web address] Not available 02/08/2025 10:03:34 Reason for Referral Urologist Referral for Blood in urine Recurrent UTIs ++ Please call patient to schedule an appointment with Ap Greco. Thank you. Referring Physician: Michael Faye [facility] Medicine, Encounter Date: 07/21/2024 Endocrinology Referral for H yperparathyroidism [place]. Please call patient to schedule an appointment. Thank you. Referring Physician: Michael Faye [facility] Medicine, Encounter Date: 10/05/2024 Results Created Date Observation Date Name Description Value Unit Range Abnormal Flag Note LastModifiedBy Organization Detail LastModifiedTime 07/21/19 25 07/21/2024 CULTU RE URINE urc ===== ===== ===== ===== ===== ===== ===== ===== ===== ===== ===== ===== ===== ===== ===== ===== ===== ===== ===== ===== ===== ===== ===== ===== Speci men NO.: [id number] Exam Statu s: Final Proce dure: [...] Genta micin 4 [place] [id number] Oxida se React ion N Extra Sensi [...] furan toin <=32 S S Not Available [facility] (Lab) [address] [place], [address], 07/23/2024 07:54:30 07/21/19 25 07/21/2024 urina lysis , dipst ick Leukocytes (reference range: negative afshan/ l) Trace Not Available [facility] [address], [address], 07/21/2024 12:04:50 07/21/19 25 07/21/2024 urina lysis , dipst ick Nitrite (reference rage: negative mg/dl) positi ve Not Available [address], [address], 07/21/2024 12:04:50 07/21/19 25 07/21/2024 urina lysis , dipst ick Urobilinogen (reference range: 0.2-1 mg/dl) 0.2 Not Available [address], [address], 07/21/2024 12:04:50 07/21/19 25 07/21/2024 urina lysis , dipst ick Protein (reference range: negative mg/dl) Negati ve Not Available [address], [address], 07/21/2024 12:04:50 07/21/19 25 07/21/2024 urina lysis , dipst ick pH (reference range: 5-7) 7.0 Not Available [address], [address], 07/21/2024 12:04:50 07/21/19 25 07/21/2024 urina lysis , dipst ick Blood (reference range: negative Cornelio/ l) Negati ve Not Available [address], [address], 07/21/2024 12:04:50 07/21/19 25 07/21/2024 urina lysis , dipst ick Specific [place] (reference range: 1.005-1.030) 1.010 Not Available [address], [address], 07/21/2024 12:04:50 07/21/19 25 07/21/2024 urina lysis , dipst ick Ketone (reference range: negative mg/dl) Negati ve Not Available [address], [address], 07/21/2024 12:04:50 07/21/19 25 07/21/2024 urina lysis , dipst ick Bilirubin (reference range: negative mg/dl) Negati ve Not Available [address], [address], 07/21/2024 12:04:50 07/21/19 25 07/21/2024 urina lysis , dipst ick Glucose (reference range: negative mg/dl) Negati ve Not Available [address], [address], 07/21/2024 12:04:50 07/21/19 25 07/21/2024 urina lysis , dipst ick Appearance Clear Not Available [address], [address], 07/21/2024 12:04:50 07/21/19 25 07/21/2024 urina lysis , dipst ick Color Pale Yellow Not Available [address], [address], 07/21/2024 12:04:50 09/22/19 25 09/21/2024 URINA LYSIS COMPL ETE/I RIS W/RFX color COLORL ESS Not Available [facility] (Lab) [address] [place], [address], 09/21/2024 19:46:22 09/22/19 25 09/21/2024 URINA LYSIS COMPL ETE/I RIS W/RFX appear CLEAR Not Available [facility] (Lab) [address] [place], [address], 09/21/2024 19:46:22 09/22/19 25 09/21/2024 URINA LYSIS COMPL ETE/I RIS W/RFX specific gravity 1.006 1.001- 1.030 Not Available [facility] (Lab) [address] [place], [address], 09/21/2024 19:46:22 09/22/19 25 09/21/2024 URINA LYSIS COMPL ETE/I RIS W/RFX pH 7.0 pH_un its 5.0-9. 0 Not Available [facility] (Lab[facility] [address] [facility] [place], [address], 09/21/2024 19:46:22 09/22/19 25 09/21/2024 URINA LYSIS COMPL ETE/I RIS W/RFX leukocytes 75 afshan/u L negati ve- abnormal Not Available [facility] (Lab) [address] [place], [address], 09/21/2024 19:46:22 09/22/19 25 09/21/2024 URINA LYSIS COMPL ETE/I RIS W/RFX nitrite NEGATI VE negati ve- Not Available [facility] (Lab) [address] [place], [address], 09/21/2024 19:46:22 09/22/19 25 09/21/2024 URINA LYSIS COMPL ETE/I RIS W/RFX protein NEGATI VE mg/dL negati ve- Not Available [facility] (Lab) [address] [place], [address], 09/21/2024 19:46:22 09/22/19 25 09/21/2024 URINA LYSIS COMPL ETE/I RIS W/RFX glucose NORMAL mg/dL normal - Not Available [facility] (Lab) [address] [place], [address], 09/21/2024 19:46:22 09/22/19 25 09/21/2024 URINA LYSIS COMPL ETE/I RIS W/RFX ketones NEGATI VE mg/dL negati ve- Not Available [facility] (Lab) [address] [place], [address], 09/21/2024 19:46:22 09/22/19 25 09/21/2024 URINA LYSIS COMPL ETE/I RIS W/RFX urobilinogen NORMAL mg/dL normal - Not Available [facility] (Lab) [address] [place], [address], 09/21/2024 19:46:22 09/22/19 25 09/21/2024 URINA LYSIS COMPL ETE/I RIS W/RFX bilirubin NEGATI VE mg/dL negati ve- Not Available [facility] (Lab) [address] [place], [address], 09/21/2024 19:46:22 09/22/19 25 09/21/2024 URINA LYSIS COMPL ETE/I RIS W/RFX blood NEGATI VE mg/dL negati ve- Not Available [facility] (Lab) [address] [place], [address], 09/21/2024 19:46:22 09/22/19 25 09/21/2024 URINA LYSIS COMPL ETE/I RIS W/RFX white blood cells 0-8 /i??h pfi?? 0-8 Not Available [facility] (Lab) [address] [place], [address], 09/21/2024 19:46:22 09/22/19 25 09/21/2024 URINA LYSIS COMPL ETE/I RIS W/RFX red blood cells 0-4 /i??h pfi?? 0-4 Not Available [facility] (Lab) [address] [place], [address], 09/21/2024 19:46:22 09/22/19 25 09/21/2024 URINA LYSIS COMPL ETE/I RIS W/RFX bacteria OCCASI ONAL none seen- abnormal Not Available [facility] (Lab) [address] [place], [address], 09/21/2024 19:46:22 09/22/19 25 09/21/2024 URINA LYSIS COMPL ETE/I RIS W/RFX mucous OCCASI ONAL /i??l pfi?? none seen- abnormal Not Available [facility] (Lab) [address] [place], [address], 09/21/2024 19:46:22 09/22/19 25 09/21/2024 URINA LYSIS COMPL ETE/I RIS W/RFX squamous epithelial FEW /i??l pfi?? abnormal Not Available [facility] (Lab) [address] [place], [address], 09/21/2024 19:46:22 09/22/19 25 09/21/2024 URINA LYSIS COMPL ETE/I RIS W/RFX tranistional epithelial FEW /i??l pfi?? abnormal Not Available [facility] (Lab) [address] [place], [address], 09/21/2024 19:46:22 09/22/19 25 09/21/2024 CBC/C OMPLE TE BLD COUNT W/DIF F white blood cells 5.4 x10'3 /uL 4.2-10 .8 Not Available [facility] (Lab) [address] [place], [address], 09/21/2024 19:51:16 09/22/19 25 09/21/2024 CBC/C OMPLE TE BLD COUNT W/DIF F red blood cells 4.23 x10'6 /uL 3.80-5 .20 Not Available [facility] (Lab) [address] [place], [address], 09/21/2024 19:51:16 09/22/19 25 09/21/2024 CBC/C OMPLE TE BLD COUNT W/DIF F hemoglobin 13.7 g/dL 12.0-1 5.6 Not Available [facility] (Lab) [address] [place], [address], 09/21/2024 19:51:16 09/22/19 25 09/21/2024 CBC/C OMPLE TE BLD COUNT W/DIF F hematocrit 40.3 % 35.7-4 5.7 Not Available [facility] (Lab) [address] [place], [address], 09/21/2024 19:51:16 09/22/19 25 09/21/2024 CBC/C OMPLE TE BLD COUNT W/DIF F mean red cell volume 95.3 fL 82.0-9 9.0 Not Available [facility] (Lab) [address] [place], [address], 09/21/2024 19:51:16 09/22/19 25 09/21/2024 CBC/C OMPLE TE BLD COUNT W/DIF F mean red cell hemoglobin 32.4 pg 27.0-3 3.0 Not Available [facility] (Lab) [address] [place], [address], 09/21/2024 19:51:16 09/22/19 25 09/21/2024 CBC/C OMPLE TE BLD COUNT W/DIF F mean RBC HGB concentratio n 34.0 g/dL 31.0-3 6.0 Not Available [facility] (Lab) [address] [place], [address], 09/21/2024 19:51:16 09/22/19 25 09/21/2024 CBC/C OMPLE TE BLD COUNT W/DIF F red cell distribution width 14.3 % 11.8-1 5.5 Not Available [facility] (Lab) [address] [place], [address], 09/21/2024 19:51:16 09/22/19 25 09/21/2024 CBC/C OMPLE TE BLD COUNT W/DIF F platelets 289 x10'3 /uL 150-40 0 Not Available [facility] (Lab) [address] [place], [address], 09/21/2024 19:51:16 09/22/19 25 09/21/2024 CBC/C OMPLE TE BLD COUNT W/DIF F mean platelet volume 11.5 fL 9.0-12 .4 Not Available [facility] (Lab) [address] [place], [address], 09/21/2024 19:51:16 09/22/19 25 09/21/2024 CBC/C OMPLE TE BLD COUNT W/DIF F neutrophils 53.1 % 39.0-7 2.0 Not Available [facility] (Lab) [address] [place], [address], 09/21/2024 19:51:16 09/22/19 25 09/21/2024 CBC/C OMPLE TE BLD COUNT W/DIF F lymphocytes 32.1 % 16.0-4 7.0 Not Available [facility] (Lab) [address] [place], [address], 09/21/2024 19:51:16 09/22/19 25 09/21/2024 CBC/C OMPLE TE BLD COUNT W/DIF F monocytes 7.2 % 5.0-12 .0 Not Available [facility] (Lab) [address] [place], [address], 09/21/2024 19:51:16 09/22/19 25 09/21/2024 CBC/C OMPLE TE BLD COUNT W/DIF F eosinophils 5.7 % 1.0-7. 0 Not Available [facility] (Lab) [address] [place], [address], 09/21/2024 19:51:16 09/22/1909/21/2024 CBC/C OMPLE TE BLD COUNT W/DIF F basophils 1.5 % 0.0-2. 0 Not Available [facility] (Lab) [address] [place], [address], 09/21/2024 19:51:16 09/22/19 25 09/21/2024 CBC/C OMPLE TE BLD COUNT W/DIF F immature granulocytes 0.4 % 0.00-0 .50 Not Available [facility] (Lab) [address] [place], [address], 09/21/2024 19:51:16 09/22/1909/21/2024 CBC/C OMPLE TE BLD COUNT W/DIF F neutrophils, absolute count 2.88 x10'3 /uL 1.5-8. 0 Not Available [facility] (Lab) [address] [place], [address], 09/21/2024 19:51:16 09/22/19 25 09/21/2024 CBC/C OMPLE TE BLD COUNT W/DIF F lymphocytes, absolute count 1.74 x10'3 /uL 1.07-3 .43 Not Available [facility] (Lab) [address] [place], [address], 09/21/2024 19:51:16 09/22/19 25 09/21/2024 CBC/C OMPLE TE BLD COUNT W/DIF F monocytes, absolute count 0.39 x10'3 /uL 0.29-0 .99 Not Available [facility] (Lab) [address] [place], [address], 09/21/2024 19:51:16 09/22/19 25 09/21/2024 CBC/C OMPLE TE BLD COUNT W/DIF F eosinophils, absolute count 0.31 x10'3 /uL 0.02-0 .53 Not Available [facility] (Lab) [address] [place], [address], 09/21/2024 19:51:16 09/22/19 25 09/21/2024 CBC/C OMPLE TE BLD COUNT W/DIF F basophils, absolute count 0.08 x10'3 /uL 0.01-0 .08 Not Available [facility] (Lab) [address] [place], [address], 09/21/2024 19:51:16 09/22/19 25 09/21/2024 CBC/C OMPLE TE BLD COUNT W/DIF F immature granulocytes ,absolute 0.02 x10'3 /uL 0.00-0 .05 Not Available [facility] (Lab) [address] [place], [address], 09/21/2024 19:51:16 09/22/19 25 09/21/2024 CBC/C OMPLE TE BLD COUNT W/DIF F nucleated red blood cells 0.0 % -0 Not Available [facility] (Lab) [address] [place], [address], 09/21/2024 19:51:16 09/22/19 25 09/21/2024 CBC/C OMPLE TE BLD COUNT W/DIF F NRBC# 0.00 x10'3 /uL Not Available [facility] (Lab) [address] [place], [address], 09/21/2024 19:51:16 09/22/19 25 09/21/2024 URIC ACID SERUM uric acid 5.1 mg/dL 2.5-6. 2 Not Available [facility] (Lab) [address] [place], [address], 09/21/2024 20:01:35 09/22/19 25 09/21/2024 COMPR EHENS POOL METAB OLIC PANEL sodium 136 mmol/ L 137-14 5 low Not Available [facility] (Lab) [address] [place], [address], 09/21/2024 20:01:41 09/22/19 25 09/21/2024 COMPR EHENS POOL METAB OLIC PANEL potassium 5.0 mmol/ L 3.5-5. 1 Not Available [facility] (Lab) [address] [place], [address], 09/21/2024 20:01:41 09/22/19 25 09/21/2024 COMPR EHENS POOL METAB OLIC PANEL chloride 100 mmol/ L 98-107 Not Available [facility] (Lab) [address] [place], [address], 09/21/2024 20:01:41 09/22/19 25 09/21/2024 COMPR EHENS POOL METAB OLIC PANEL carbon dioxide 25 mmol/ L 22-30 Not Available [facility] (Lab) [address] [place], [address], 09/21/2024 20:01:41 09/22/19 25 09/21/2024 COMPR EHENS POOL METAB OLIC PANEL anion gap 16.0 mmol/ L 14-22 Not Available [facility] (Lab) [address] [place], [address], 09/21/2024 20:01:41 09/22/19 25 09/21/2024 COMPR EHENS POOL METAB OLIC PANEL glucose 100 mg/dL 70-99 high Not Available [facility] (Lab) [address] [place], [address], 09/21/2024 20:01:41 09/22/19 25 09/21/2024 COMPR EHENS POOL METAB OLIC PANEL BUN 21 mg/dL 8-19 high Not Available [facility] (Lab) [address] [place], [address], 09/21/2024 20:01:41 09/22/19 25 09/21/2024 COMPR EHENS POOL METAB OLIC PANEL creatinine 0.88 mg/dL 0.66-1 .25 Not Available [facility] (Lab) [address] [place], [address], 09/21/2024 20:01:41 09/22/19 25 09/21/2024 COMPR EHENS POOL METAB OLIC PANEL GFR >60 Refer ence Range : [place] ge GFR Healt hy Adult : >60 [...] or ethni c subgr oups, such as Hisid nics. Outsi de the valid ated madhu eters , estim ated GFR is less accur ate, requi ring clini george judgm ent on a case- by-ca se basis . Clini goerge inter preta tion for other races and [...] s/kdo qi/gf r_cal culat or Not Available [facility] (Lab) [address] [place], [address], 09/21/2024 20:01:41 09/22/19 25 09/21/2024 COMPR EHENS POOL METAB OLIC PANEL alkaline phosphatase 60 U/L 38-126 Not Available [facility] (Lab) [address] [place], [address], 09/21/2024 20:01:41 09/22/19 25 09/21/2024 COMPR EHENS POOL METAB OLIC PANEL alanine aminotransfe rase 41 U/L 0-35 high Not Available [facility] (Lab) [address] [place], [address], 09/21/2024 20:01:41 09/22/19 25 09/21/2024 COMPR EHENS POOL METAB OLIC PANEL aspartate aminotransfe rase 32 U/L 15-37 Not Available [facility] (Lab) [address] [place], [address], 09/21/2024 20:01:41 09/22/19 25 09/21/2024 COMPR EHENS POOL METAB OLIC PANEL bilirubin, total 0.80 mg/dL 0.20-1 .30 Not Available [facility] (Lab) [address] [place], [address], 09/21/2024 20:01:41 09/22/19 25 09/21/2024 COMPR EHENS POOL METAB OLIC PANEL calcium 11.7 mg/dL 8.4-10 .2 high Not Available [facility] (Lab) [address] [place], [address], 09/21/2024 20:01:41 09/22/19 25 09/21/2024 COMPR EHENS POOL METAB OLIC PANEL total protein 7.9 g/dL 6.3-8. 2 Not Available [facility] (Lab) [address] [place], [address], 09/21/2024 20:01:41 09/22/19 25 09/21/2024 COMPR EHENS POOL METAB OLIC PANEL albumin 5.3 g/dL 3.0-4. 4 high Not Available [facility] (Lab) [address] [place], [address], 09/21/2024 20:01:41 09/22/19 25 09/21/2024 COMPR EHENS POOL METAB OLIC PANEL globulin 2.6 g/dL 2.6-4. 2 Not Available [facility] (Lab) [address] [place], [address], 09/21/2024 20:01:41 09/22/19 25 09/21/2024 COMPR EHENS POOL METAB OLIC PANEL A/G ratio 2.0 ratio 1.0-2. 0 Not Available [facility] (Lab) [address] [place], [address], 09/21/2024 20:01:41 09/22/19 25 09/21/2024 LIPID PANEL cholesterol 186 mg/dL 140-19 9 NIH LUPIS NSUS RECOM MENDA TION FOR GENEVIEVE STERO L: ADULT CHILD LOW RISK: <200 <170 BORDE RLINE : <200- 239 ----- HIGH RISK: >240 >200 Not Available [facility] (Lab) [address] [place], [address], 09/21/2024 20:01:46 09/22/19 25 09/21/2024 LIPID PANEL triglyceride s 155 mg/dL 0-150 high NIH LUPIS NSUS REPOR T RECOM MENDA TION FOR TRIGL YCERI BERNA: ADULT CHILD LOW RISK: <150 ----- BODER LINE: 150-1 99 ----- HIGH RISK: >200 ----- Not Available [facility] (Lab) [address] [place], [address], 09/21/2024 20:01:46 09/22/19 25 09/21/2024 LIPID PANEL HDL cholesterol 43 mg/dL 40- Not Available [facility] (Lab) [address] [place], [address], 09/21/2024 20:01:46 09/22/19 25 09/21/2024 LIPID PANEL [...] WILL NOT BE REPOR GRACIELA. Not Available [facility] (Lab) [address] [place], [address], 09/21/2024 20:01:46 09/22/19 25 09/21/2024 PARAT HY.HO RM(PT H)INT ACT-W /O CA intact parathyroid hormone 111.1 pg/mL 24.0-7 8.0 high Not Available [facility] (Lab) [address] [place], [address], 09/21/2024 20:18:23 09/22/19 25 09/21/2024 VITAM IN D 25-HY DROXY vd25oh 48.2 NG/mL 30-100 Vitam in D Statu s: Defic ient: <20 ng/mL Insuf ficie nt: 20-29 ng/mL Suffi cient : 30-10 0 ng/mL Not Available [facility] (Lab) [address] [place], [address], 09/21/2024 20:18:38 09/22/19 25 09/21/2024 HEMOG LOBIN A1C HA1C 5.6 % 4.0-6. 0 Diabe octavio Scree kayden Crite ankit: <5.7% Consi stent with absen ce of diabe octavio 5.7-6 .4% Consi stent with incre ased risk for diabe octavio (pred iabet es) >OR=6 .5% Consi stent with diabe octavio REFER ENCE: Diabe octavio Care 2016, 39(Hernández ppl.1 ):s13 -s22 Not Available [facility] (Lab) [address] [place], [address], 09/21/2024 20:26:48 09/22/19 25 09/21/2024 TSH W/REF FARHEEN FT4 TSH with reflex free T4 1.650 uIU/m L 0.465- 4.680 Not Available [facility] (Lab) [address], [place], [address], 09/21/2024 20:36:14 09/22/19 25 09/21/2024 urina lysis , dipst ick Leukocytes (reference range: negative afshan/ l) Small Not Available [address], [address], 09/21/2024 14:23:19 09/22/19 25 09/21/2024 urina lysis , dipst ick Nitrite (reference rage: negative mg/dl) negati ve Not Available [address], [address], 09/21/2024 14:23:19 09/22/19 25 09/21/2024 urina lysis , dipst ick Urobilinogen (reference range: 0.2-1 mg/dl) 0.2 Not Available [address], [address], 09/21/2024 14:23:19 09/22/19 25 09/21/2024 urina lysis , dipst ick Protein (reference range: negative mg/dl) Negati ve Not Available [address], [address], 09/21/2024 14:23:19 09/22/19 25 09/21/2024 urina lysis , dipst ick pH (reference range: 5-7) 7.0 Not Available [address], [address], 09/21/2024 14:23:19 09/22/19 25 09/21/2024 urina lysis , dipst ick Blood (reference range: negative Cornelio/ l) Negati ve Not Available [address], [address], 09/21/2024 14:23:19 09/22/19 25 09/21/2024 urina lysis , dipst ick Specific [place] (reference range: 1.005-1.030) 1.010 Not Available [address], [address], 09/21/2024 14:23:19 09/22/19 25 09/21/2024 urina lysis , dipst ick Ketone (reference range: negative mg/dl) Negati ve Not Available [address], [address], 09/21/2024 14:23:19 09/22/19 25 09/21/2024 urina lysis , dipst ick Bilirubin (reference range: negative mg/dl) Negati ve Not Available [address], [address], 09/21/2024 14:23:19 09/22/19 25 09/21/2024 urina lysis , dipst ick Glucose (reference range: negative mg/dl) Negati ve Not Available [address], [address], 09/21/2024 14:23:19 09/22/19 25 09/21/2024 urina lysis , dipst ick Appearance Clear Not Available [address], [address], 09/21/2024 14:23:19 09/22/19 25 09/21/2024 urina lysis , dipst ick Color Pale Yellow Not Available [address], [address], 09/21/2024 14:23:19 02/09/20 25 02/08/2025 urina lysis , dipst ick Leukocytes (reference range: negative afshan/ l) Small Not Available [address], [address], 02/08/2025 09:54:36 02/09/2002/08/2025 urina lysis , dipst ick Nitrite (reference rage: negative mg/dl) positi ve Not Available [address], [address], 02/08/2025 09:54:36 02/09/2002/08/2025 urina lysis , dipst ick Urobilinogen (reference range: 0.2-1 mg/dl) 0.2 Not Available [address], [address], 02/08/2025 09:54:36 02/09/2002/08/2025 urina lysis , dipst ick Protein (reference range: negative mg/dl) Negati ve Not Available [address], [address], 02/08/2025 09:54:36 02/09/2002/08/2025 urina lysis , dipst ick pH (reference range: 5-7) 7.5 Not Available [address], [address], 02/08/2025 09:54:36 02/09/20 25 02/08/2025 urina lysis , dipst ick Blood (reference range: negative Cornelio/ l) Negati ve Not Available [address], [address], 02/08/2025 09:54:36 02/09/20 25 02/08/2025 urina lysis , dipst ick Specific [place] (reference range: 1.005-1.030) 1.020 Not Available [address], [address], 02/08/2025 09:54:36 02/09/2002/08/2025 urina lysis , dipst ick Ketone (reference range: negative mg/dl) Negati ve Not Available [address], [address], 02/08/2025 09:54:36 02/09/2002/08/2025 urina lysis , dipst ick Bilirubin (reference range: negative mg/dl) Negati ve Not Available [address], [address], 02/08/2025 09:54:36 02/09/2002/08/2025 urina lysis , dipst ick Glucose (reference range: negative mg/dl) Negati ve Not Available [address], [address], 02/08/2025 09:54:36 02/09/2002/08/2025 urina lysis , dipst ick Appearance Clear Not Available [address], [address], 02/08/2025 09:54:36 02/09/2002/08/2025 urina lysis , dipst ick Color Yellow Not Available [facility] [address] [facility], [place], [address], 02/08/2025 09:54:36 09/17/19 25 09/16/2024 NM, kidne y scan, w/ vascu lar flow + funct ion, singl e, w/o pharm a inter venti on No observ ation record ed. [address] [address], [place], [address], 09/21/2024 14:09:22 10/26/19 25 10/25/2024 XR, kidne y + urete r + bladd er No observ ation record ed. [address] [address], [place], [address], 02/08/2025 10:01:47 11/03/19 25 11/02/2024 XR, kidne y + urete r + bladd er No observ ation record ed. [address] [address], [place], [address], 02/08/2025 10:01:46 12/03/19 25 12/01/2024 XR, kidne y + urete r + bladd er No observ ation record ed. [address] [address], [place], [address], 02/08/2025 10:01:46 12/22/19 25 12/14/2024 CT, abdom en + pelvi s, w/o contr ast No observ ation record ed. [address] [address], [place], [address], 02/08/2025 10:01:46 Result Notes None recorded. Problems Name Problem SNOMED Code Status Onset Date Resolution Date Notes Provider Name and Address Organization Details Recorded Time Anthony hematuria 644322331 Completed Not Available [facility] 3 07:31:20 Headache 91048225 Completed Daly Pinto, GUS [address], [address], [place], [address] , [employer] 3 12:00:58 Retinal disorder 11299445 Active Not Available [facility] 3 07:31:20 Depressiv e disorder 31650674 Active Not Available [facility] 3 07:31:21 Hematoma 671188683 Completed Not Available [facility] 3 07:31:21 Furuncle 084360779 Completed Michael Faye MD [address], [facility] [address], [place], [address] , [employer] [facility] 4 10:18:43 Foot pain 35932758 Completed Not Available [facility] 3 07:31:22 Anxiety 59408879 Active Not Available [facility] 3 07:31:22 Upper respirato ry infection 90964619 Completed Not Available [facility] 3 07:31:22 Urinary tract infectiou s disease 19026282 Completed Michael Faye MD [address] [facility], [facility] [address], [place], [address] , [facility] 4 16:13:03 Sleep apnea 48311708 Active Not Available [facility] 3 07:31:24 Urgent desire to urinate 32386011 Completed Not Available [facility] 3 07:31:24 Skin lesion 73273874 Completed Not Available [facility] 3 07:31:25 Kidney stone 16887678 Completed Not Available [facility] 3 07:31:25 Osteoarth ritis of knee 767983470 Active 2016 Not Available [facility] 3 07:31:20 Environme ntal allergy 776727055 Active 2016 Not Available [facility] 3 07:31:21 Migraine without aura 21046410 Active 2016 Not Available [facility] 3 07:31:22 Varicose veins of lower extremity 44422437 Active 2016 Not Available [facility] 3 07:31:23 Hyperlipi demia 03092180 Active 2016 Not Available [facility] 3 07:31:22 Hyperglyc emia 46588621 Active 2016 Not Available [facility] 3 07:31:24 Sinusitis 71288260 Active 2017 Not Available [facility] 3 07:31:21 Acid reflux 708292987 Active 2018 Not Available [facility] 3 07:31:23 Gastroeso phageal reflux disease 718096827 Active 2019 Not Available [facility] 3 07:31:20 Seasonal allergic rhinitis 275638204 Active 2019 Not Available [facility] 3 07:31:21 Hypertens pool disorder 14719029 Active 2019 Not Available [facility] 3 07:31:21 Bilateral tinnitus 38932364614 02 Active 2019 Not Available [facility] 3 07:31:22 Hypertrig lyceridem ia 550873903 Active 2020 Not Available [facility] 3 07:31:21 Memory impairmen t 141536837 Active 2020 Not Available [facility] 3 07:31:21 Liver enzymes level above reference range 135026599 Active 2020 Not Available [facility] 3 07:31:23 Acute sinusitis 52633649 Active 2020 Not Available [facility] 3 07:31:19 History of thyroid disorder 847351495 Active 2020 Not Available [facility] 3 07:31:20 Postmenop ausal state 55417070 Active 2021 Not Available [facility] 3 07:31:24 Low back pain 440005757 Active 2021 Not Available [facility] 3 07:31:20 Gout 23744563 Active 2021 Not Available [facility] 3 07:31:24 Osteoporo sis 75332755 Active 2021 Not Available [facility] 3 07:31:23 Sciatica 49257497 Active 2021 Not Available [facility] 3 07:31:20 Mixed anxiety and depressiv e disorder 311642123 Active 2021 Not Available [facility] 3 07:31:20 Lumbar spondylos is 821899790 Active 2021 Not Available [facility] 3 07:31:20 Herniatio n of lumbar intervert ebral disc with sciatica 26404133642 4105 Active 2021 Not Available [facility] 3 07:31:22 Obese 271649381 Active 2022 Daly Pinto NP [address], [address], [place], [address] , [facility] 3 11:56:43 Headache 45516387 Active 2022 Daly Pinto NP [address], [address], [place], [address] , [place] [facility] 3 12:00:58 Lumbar radiculop athy 429828610 Active 2022 Michael Faye MD [address], [address], [place], [address] , [employer] [facility] 3 17:01:57 Obesity 066480547 Active 2022 Michael Faye MD [address], [address], [place], [address] , [employer] [facility] 3 17:02:46 Lipoma of lower leg 488896730 Active 2022 Michael Faye MD [address], [address], [place], [address] , [employer] [facility] 3 17:43:42 Idiopathi c hypercalc emia 212638146 Active 2022 Michael Faye MD [address], [address], [place], [address] , [employer] [facility] [employer] [facility] 3 14:31:47 Hyperpara thyroidis m 51638350 Active 2022 Michael Faye MD [address], [address], [place], [address] , [employer] - [facility] [place] [employer] [facility] [employer] 5 10:26:42 Blood in urine 54663266 Active 2022 Daly Pinto NP [address], [address], [place], [address] , [facility] [employer] [facility] [employer] 3 10:44:02 Abnormal uterine bleeding 46686937948 100 Active 2022 Daly Pinto NP [address], [address], [place], [address] , [employer] [facility] [employer] [facility] [employer] 3 10:44:49 Acute urinary tract infection 037715620 Active 2022 Daly Pinto NP [address] [employer], [address], [place], [address] , [facility] [employer] [facility] [employer] 3 08:51:54 Dysuria 12227517 Active 2022 Michael Faye MD [address], [address], [place], [address] , [facility] [employer] [facility] [employer] 5 14:23:11 Urinary tract infectiou s disease 17525680 Active 2023 Michael Faye MD [address] [address], [address], [place], [address] , [facility] [employer] [facility] 4 16:13:03 Bilateral earache 139581212 Active 2023 Michael Faye MD [address], [address], [place], [address] , [employer] - [facility] [place] [employer] [facility] 4 16:33:22 Candidal vulvovagi nitis 28344916 Active 2023 Michael Faye MD [address], [address], [place], [address] , [place] [facility] 4 16:37:42 Gouty arthropat hy 691786009 Active 2023 Michael Faye MD [address], [address] [employer], [place], [address] , [place] - [facility] [employer] [facility] 4 09:56:46 Polyarthr opathy 49681060 Active 2023 Michael Faye MD [address], [address] [employer], [place], [address] , [place] [facility] [employer] [facility] 4 09:58:59 Obstructi ve sleep apnea syndrome 65614255 Active 2023 Michael Faye MD [address], [address] [employer], [place], [address] , [place] [facility] [employer] [facility] 4 10:07:57 Pain of right knee joint 65760557853 4100 Active 2023 LILLY Beltran [address] [address], [address] [employer], [place], [address] , [facility] [employer] [facility] 4 14:54:22 Hypercalc emia 13047000 Active 2023 LILLY Beltran [address], [address], [place], [address] , [employer] - [facility] [employer] [facility] 4 14:58:37 Cough 14563239 Active 2024 Michael Faye MD [address], [address], [place], [address] , [employer] [facility] [employer] 5 14:35:26 Bronchiti s 16555995 Active 2024 Michael Faye MD [address], [address] [employer], [place], [address] , [facility] [employer] 5 14:57:50 Muscle strain 47003017 Active 2024 Michael Faye MD [address], [address], [place], [address] , [facility] 5 15:14:02 Problem Notes None recorded. Procedures Surgical History Date Name Laterality Status Provider Name and Address Organization Details Recorded Time 10/27/19 24 Date of Last Pap Smear completed Michael Faye MD [address], [address], [place], [address], [facility] 09/21/2024 14:27:51 09/29/19 24 Medicare Wellness CPT Code, subsequent completed Reji Ashton [facility] 09/29/2023 14:15:26 08/29/19 24 Most Recent Mammogram completed Michael Faye MD [address], [address], [place], [address], [facility] 09/21/2024 14:27:51 06/18/19 24 Transitional_Care_ Management completed [facility] [employer] 06/18/2023 16:22:09 04/03/20 22 Most Recent Bone Density completed Not Available [facility] 07/23/2022 07:26:53 05/25/19 18 Knee Replacement completed Not Available [facility] 07/23/2022 07:26:55 05/25/19 02 repair of ovary completed Not Available [facility] 07/23/2022 07:26:55 05/25/18 92 Cholecystectomy completed Not Available [facility] 07/23/2022 07:26:55 Imaging Results None recorded. Procedure Notes None recorded. Medical Equipment None Reported. Allergies Allergen ID Allergen Name Allergen Category Reaction Reaction Severity Criticality Documentation Date Start Date Code Code System Note Provider Name and Address Organization Details Recorded Time 43251 Substance with sulfonami de structure and antibacte rial mechanism of action (substanc e) medicatio n nausea Not available Not available 07/23/2022 23144 8003 SNOMED Not Available [facility] 3 07:36:13 58801 Zithromax medicatio n other Not available Not available 03/31/2024 63602 4 RxNorm cause s pt to be super jitte ry Michael Faye MD [address], [address], [place], [address], [facility] 5 14:58:29 53409 Macrobid medicatio n anaphylax is severe high 06/16/20242024 56484 1 RxNorm state s her throa t close d up with in the hour of leyda dove it, had to go to [facility] [place] [facility] 5 09:32:31 Medications Name Sig Start [...] Not Available Not Available Not Available Afluria 1147-8707 (PF) 45 mcg (15 mcg x 3)/0.5 mL intramusc ular syringe USE DIRECTED active Not Available Not Available No t Available Afluria 9138-5653 (PF) 45 mcg (15 mcg x 3)/0.5 mL IM syringe TO BE ADMINIST ERED BY PHARMACI ST FOR IMMUNIZA TION active Not Available Not Available No t Available Flucelvax Quad 5261-4696 (PF) 60 mcg (15 mcg x 4)/0.5 mL IM syringe active Not Available Not Available Not Available Vitals Date Recorded Oxygen saturation Oxygen saturation in Arterial blood by Pulse oximetry Systolic And Diastolic Provider Name and Address Organization Details Last Updated DateTime 07/21/2024 96 % 96 % 160/84 mm[Hg] Michael Faye MD [address], [facility] [address], [place], [address], [facility] 07/21/2024 12:20:50 Date Recorded Body height Body mass index (BMI) Body weight Body temperature Heart rate Respiratory rate Pain severity - 0-10 verbal numeric rating [Score] - Reported Provider Name and Address Organization Details Last Updated DateTime 5 160.02 cm 41.7 kg/m2 771188. 91 g 97.5 [degF] 74 /min 20 /min 1 Daly Monte RN [facility] 5 11:47:05 Date Recorded Body height Body mass index (BMI) Body weight Body temperature Oxygen saturation Oxygen saturation in Arterial blood by Pulse oximetry Heart rate Systolic And Diastolic Provider Name and Address Organization Details Last Updated DateTime 5 160.02 cm 41.4 kg/m2 560690. 82 g 98.2 [degF] 96 % 96 % 72 /min 120/70 mm[Hg] Nely Xiao RN [facility] 5 14:53:14 Date Recorded Body height Body mass index (BMI) Body weight Body temperature Oxygen saturation Oxygen saturation in Arterial blood by Pulse oximetry Heart rate Systolic And Diastolic Provider Name and Address Organization Details Last Updated DateTime 5 160.02 cm 40.6 kg/m2 077504. 05 g 98.1 [degF] 97 % 97 % 81 /min 142/70 mm[Hg] Nely Xiao RN [facility] 5 14:07:59 Date Recorded Body height Body mass index (BMI) Body weight Body temperature Oxygen saturation Oxygen saturation in Arterial blood by Pulse oximetry Heart rate Systolic And Diastolic Provider Name and Address Organization Details Last Updated DateTime 5 160.02 cm 41 kg/m2 127148. 89 g 97.7 [degF] 98 % 98 % 76 /min 140/64 mm[Hg] Nely Xiao RN [facility] 5 10:19:26 Date Recorded Body height Body mass index (BMI) Body weight Body temperature Oxygen saturation Oxygen saturation in Arterial blood by Pulse oximetry Heart rate Systolic And Diastolic Provider Name and Address Organization Details Last Updated DateTime 5 160.02 cm 40.6 kg/m2 386114. 35 g 98.6 [degF] 97 % 97 % 68 /min 146/66 mm[Hg] Nely Xiao RN [facility] [employer] [facility] 10:00:41 Social History Question Answer Notes LastModified by Organizat ion Details LastModified Time Tobacco Smoking Status Never Smoker Elida [employer] [place], [place] [employer] [facility] [employer] [facility] 06/18/2023 16:10:12 Do You Have An Advance Directive? Yes [id number] Information not available 07/23/2022 Are You Blind Or Do You Have Difficulty Seeing? No Information not available 06/18/2023 Is Blood Transfusion Acceptable In An Emergency? Yes Information not available 06/18/2023 What Is Your Level Of Caffeine Consumption? Moderate [id number] Information not available 07/23/2022 How Much Tobacco Do You Chew? None [id number] Information not available 07/23/2022 What Is Your [...] Type Of Diet Are You Following? GLUTENFREE [email or web address] Information not available 12/30/2023 Which Illicit Or Recreational Drugs Have You Used? None Information not available 06/18/2023 What Is The Highest Grade Or Level Of School You Have Completed Or The Highest Degree You Have Received? [id number] Information not available 06/18/2023 How Many Days [...] not available 06/18/2023 Where Do You Live? [facility] Information not available 06/18/2023 Advance Directive- Providers [...] Do You Have A Medical Power Of Field Enumerator? No Information not available 06/18/2023 What Was [...] is your level of alcohol consumption? None [id number] Information not available 07/23/2022 Are you currently [...] 06/18/2023 What is your exercise level? Moderate [email or web address] Information not available 12/30/2023 Mental Status Question Answer Note LastModified by Organizat ion Details LastModified Time Do you feel stressed (tense, restless, nervous, or anxious, or unable to sleep at night)? [id number] Information not available 11/09/2023 Do you have difficulty concentrating, remembering or making decisions? No Information no t available 06/18/2023 Family History Relationship Description Onset Age of this Age Resolved Age Notes LastModified by Organization Details LastModified Time Father No current problems or disability [id number] Not available 07/23/2022 07:26:58 Mother No current problems or disability [id number] Not available 07/23/2022 07:26:58 Medical History Condition [...] quadrivalent, preservative 8 completed Not Available [facility] 07/23/2022 07:36:04 Influenza, split virus, trivalent, preservative 5 completed Not Available [facility] 07/23/2022 07:36:04 zoster live 5 completed Not Available [facility] 07/23/2022 07:36:04 Influenza, split virus, trivalent, PF 4 completed Not Available [facility] 07/23/2022 07:36:04 Pneumococcal conjugate PCV 13 0 completed Not Available [facility] 07/23/2022 07:36:05 Influenza, high-dose, quadrivalent, PF 0 completed Not Available [facility] 07/23/2022 07:36:05 Tdap 8 completed Not Available [facility] 07/23/2022 07:36:05 Influenza, split virus, quadrivalent, PF 6 completed Not Available [facility] 07/23/2022 07:36:05 Past Encounters Encounter ID Performer Location Encounter Start Date Encounter Closed Date Diagnosis/Indication Diagnosis SNOMED-CT Code Diagnosis ICD10 Code Diagnosis IMO Codes Diagnosis Note [id number] Daly Pinto NP [facility] [address] [place] [address] 07/24/2020 00:00:00 07/24/2020 09:44:41 [id number] [address] [facility] [address] [place] [address] 10/31/2020 00:00:00 10/31/2020 09:16:25 [id number] [facility] [address] [place] [address] 11/20/2020 00:00:00 11/20/2020 12:21:01 [id number] [facility] [address] [place] [address] 02/13/2021 00:00:00 02/13/2021 14:33:22 [id number] [facility] [address] [place] [address] 02/26/2021 00:00:00 02/26/2021 14:32:03 [id number] [facility] [address] [place] [address] 07/24/2021 00:00:00 07/24/2021 14:56:[id number] [facility] [address] [place] [address] 10/09/2021 00:00:00 10/09/2021 14:38:30 [id number] [address] [facility] [address] [place] [address] 02/26/2022 00:00:00 02/26/2022 10:42:26 [id number] [facility] [address] [place] [address] 03/18/2022 00:00:00 03/19/2022 15:55:39 [id number] Michael Faye MD [facility] [place] [address] [place] [address] 04/29/2022 00:00:00 04/29/2022 18:09:05 [id number] Michael Faye MD [address] [address] 05/06/2022 00:00:00 05/06/2022 15:25:01 [id number] Daly Pinto NP [address] [address] 08/06/2022 11:17:09 08/06/2022 12:50:33 Hyperlipidemia 99055610 E78.5 Low fat diet. Statins cause pain. 02/27/22 last lab result. Essential hypertension 52455872 I10 amlodipine 5 mg po daily.ASA 81 mg po dailyLosar puckett 100 mg po daily.tria mterene 37.5 mg-hctz25 mg po daily. (this can increase gout flare, so stopped and started on losartan only) Osteoporosis 95053878 M8 1.0 alendronat e 70 mg po weekly pt stopped. Wants to follow Dr. Sims holistic provider and be on vitamins.M eloxicam 15 mg po daily.Tram adol 50 mg po tid prn- pt trying to wean off. Acid reflux 694190143 K2 1.9 famotidine 20 mg po daily. Sleep apnea 29969196 G47 .30 Gout 04822059 M10.9 allopurino l 100 mg po daily. Seasonal a llergic rhinitis 063242075 J30.2 cetirizine 10 mg po daily.Flon ase prn Mixed anxi ety and depressive disorder 751314743 F41.8 Pt weaned herself off the lexapro. Hydroxyzin e prn use. Sciatica 49078416 M54.32 cyclobenza shalini 10 mg po tid prn.Gabape ntin 300 mg po nightly. Obese 594504083 E66.9 Diet and exercise. Wegovy and phentermin e discussed. Phentermin e 15 mg po daily. Headache 17291224 R51.9 [id number] Michael Faye MD [address] [address] 08/07/2022 16:38:36 08/07/2022 17:44:28 Cramp in lower limb 755101940 R25.2 B/L Lumbar radiculopathy 128 666663 M54.16 Gout 52360014 M10.9 Obesity 612384415 E66.9 Lipoma of lower leg 1890 36290 D17.24 Lt [id number] Dayl Pinto NP [address] [address] 09/09/2022 09:34:15 09/09/2022 10:58:16 Blood in urine 23831837 R31.9 Sending urine for culture. Blood with wiping- no periods for 15 years. 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 Obese 951546352 E66.9 Diet and exercise. Phentermin e 15 mg po daily. Down 2 lbs. Would like to continue. [id number] Daly Pinto NP [address] [address] 10/09/2022 09:13:04 10/09/2022 10:05:37 Obese 397048874 E66.9 Diet and exercise. Phentermin e 15 mg po daily. Down 2 lbs. Would like to continue.I LPMP last fill 09/09/22.Ph entermine 37.5 mg po daily. Essential hypertension 13252799 I10 amlodipine 5 mg po daily.ASA 81 mg po dailyLosar puckett 100 mg po daily.tria mterene 37.5 mg-hctz25 mg po daily. (this can increase gout flare, so stopped and started on losartan only) Gastroesop hageal reflux disease 768050398 K21.9 [id number] Daly Pinto NP [address] [address] 10/24/2022 10:41:24 10/24/2022 11:44:26 Dysuria 52074026 R30.0 R30.9 Patient was started on antibiotic and advised to increase water intake.Cul ture sent.Urina lysis in office +nitrites [id number] Daly Pinto NP [address] [address] 01/21/2023 13:58:46 01/21/2023 18:03:00 Gout 80488497 M10.9 allopurino l 200 mg po daily. Seeing Dr. Becerra. Sleep apnea 15109080 G47 .30 CPAP Acid reflux 029323679 K2 1.9 famotidine 20 mg po daily. Hyperparathyroidism 6699 9008 E21.3 referred to endo, but patient cancelled. Osteoporosis 37695614 M8 1.0 alendronat e 70 mg po weekly pt stopped. Wants to follow Dr. Sims holistic provider and be on vitamins.M eloxicam 15 mg po daily.Tram adol 50 mg po tid prn- pt trying to wean off. Not able to yet- trying to lose weight. Essential hypertension 50820394 I10 amlodipine 5 mg po daily.ASA 81 mg po dailyLosar puckett 100 mg po daily.tria mterene 37.5 mg-hctz25 mg po daily. (this can increase gout flare, so pt monitoring ) Migraine without aura 56 342823 G43.009 Hyperlipidemia 17755672 E78.5 Low fat diet. Statins cause pain. 02/27/22 last lab result. Anxiety 85084090 F41.9 Obese 332618809 E66.9 Diet and exercise. Lumbar spondylosis 45934 0009 M47.896 Osteoarthr itis of knee 580476084 M17.9 [id number] Michael Faye MD [address] [address] 06/18/2023 16:09:07 06/18/2023 17:00:32 Seen in emergency clinic 912809694 Z76.89 Recent ED records reviewed. Urinary tr act infectious disease 02144650 N39.0 Transition of care 65874 71363 105 Z75.8 Sinusitis 29677389 J32.9 Bilateral earache 281767 003 H92.03 Candidal vulvovaginitis 87678520 B37.31 Essential hypertension 63348073 I10 Gout 78595955 M10.9 Obesity 087009471 E66.9 [id number] Michael Faye MD [address] [address] 09/02/2023 09:43:47 09/02/2023 10:22:40 Hypertensive disorder 80928079 I10 Gouty arthropathy 371108 008 M10.09 Gynecologi c examination 65990586 Z01.419 Depressive disorder 3548 9007 F32.A Polyarthropathy 45540975 M13.0 Obesity 635996958 E66.9 Osteoporosis 92791656 M8 1.0 Screening mammography 24 006087 Z12.31 Screening for malignant neoplasm of colon 780751050 Z12.11 Urinary tr act infectious disease 20743829 N39.0 Obstructiv e sleep apnea syndrome 73720867 G47.33 [id number] Michael Faye MD [address] [address] 09/29/2023 14:13:02 09/29/2023 15:00:22 Hypertensive disorder 60096375 I10 Gouty arthropathy 205086 008 M10.09 Depressive disorder 3548 9007 F32.A Polyarthropathy 12230681 M13.0 Obesity 505620416 E66.9 Osteoporosis 79748600 M8 1.0 Obstructiv e sleep apnea syndrome 72913822 G47.33 Adult the [facility] th examination 889712556 Z00.00 Screening for disorder 218262780 Z13.9 Hyperlipidemia 81138000 E78.5 Liver enzy mes level above reference range 522287324 R74.01 Idiopathic hypercalcemia 399733295 E83.52 Essential hypertension 18452260 I10 [id number] Michael Faye MD [address] [address] 11/09/2023 14:20:26 11/09/2023 15:06:36 Pain of right knee joint 9258217269 29263 M25.561 Hypercalcemia 34884424 E 83.52 [id number] Michael Faye MD [address] [address] 12/22/2023 09:14:13 12/22/2023 09:30:39 [id number] Michael Faye MD [address] [address] 12/30/2023 09:42:46 12/30/2023 10:33:19 Hypertensive disorder 10843842 I10 Gouty arthropathy 137060 008 M10.09 Depressive disorder 3548 9007 F32.A 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.0 Obesity 396516904 E66.9 Osteoporosis 44112697 M8 1.0 Obstructiv e sleep apnea syndrome 50708526 G47.33 Hyperlipidemia 51375357 E78.5 Liver enzy mes level above reference range 653399006 R74.01 Idiopathic hypercalcemia 549673509 E83.52 Osteoarthr itis of knee 018729319 M17.9 [id number] Michael Faye MD [address] [address] 03/31/2024 09:38:14 03/31/2024 10:14:55 Idiopathic hypercalcemia 109612198 E83.52 Gouty arthropathy 881004 008 M10.09 Hypertensive disorder 38 891455 I10 Depressive disorder 3548 9007 F32.A Polyarthropathy 16613692 M13.0 Obesity 878969015 E66.9 Osteoporosis 76168081 M8 1.0 Obstructiv e sleep apnea syndrome 52889775 G47.33 Hyperlipidemia 34239036 E78.5 Liver enzy mes level above reference range 954552509 R74.01 Osteoarthr itis of knee 746252814 M17.9 [id number] Michael Faye MD [address] [address] 06/15/2024 10:16:28 06/15/2024 10:56:03 Acute urinary tract infection 231101085 N39.0 hx of sepsis related to UTI [id number] Michael Faye MD [place] [address] 1 07/21/2024 11:36:24 07/21/2024 12:34:55 Gouty arthropathy 769338595 M10.09 Idiopathic hypercalcemia 559557985 E83.52 Hypertensive disorder 38 582753 I10 Depressive disorder 3548 9007 F32.A Polyarthropathy 28425061 M13.0 Obesity 896588644 E66.9 Osteoporosis 91832760 M8 1.0 Obstructiv e sleep apnea syndrome 62114247 G47.33 Hyperlipidemia 90885062 E78.5 Liver enzy mes level above reference range 072614934 R74.01 Osteoarthr itis of knee 013257752 M17.9 Blood in urine 06327132 R31.9 Dysuria 68187735 R30.0 [id number] Michael Faye MD [address] [address] 08/17/2024 14:29:59 08/17/2024 15:04:55 Cough 54793922 R05.9 Bronchitis 10882306 J40 Muscle strain 17736207 T 14.8XXA [id number] Michael Faye MD [address] [address] 09/21/2024 13:53:04 09/21/2024 14:42:12 Gouty arthropathy 026234462 M10.09 Idiopathic hypercalcemia 491752364 E83.52 Hypertensive disorder 38 294354 I10 Depressive disorder 3548 9007 F32.A Polyarthropathy 10611586 M13.0 Obesity 753991339 E66.9 Osteoporosis 87198110 M8 1.0 Obstructiv e sleep apnea syndrome 46314438 G47.33 Hyperlipidemia 71928346 E78.5 Liver enzy mes level above reference range 880799936 R74.01 Osteoarthr itis of knee 655567659 M17.9 Dysuria 48314391 R30.0 [id number] [id number] Michael Faye MD [address] [address] 10/05/2024 10:11:13 10/05/2024 10:36:25 Hypertensive disorder 09129742 I10 Gouty arthropathy 799591 008 M10.09 Idiopathic hypercalcemia 090314666 E83.52 Depressive disorder 3548 9007 F32.A Polyarthropathy 11160116 M13.0 Obesity 988358194 E66.9 Osteoporosis 76869078 M8 1.0 Obstructiv e sleep apnea syndrome 38712285 G47.33 Hyperlipidemia 13118261 E78.5 Liver enzy mes level above reference range 414670709 R74.01 resolved Osteoarthr itis of knee 161819581 M17.9 Hyperparathyroidism 6699 9008 E21.3 07213 [id number] Michael Fyae MD [address] [address] 02/08/2025 09:32:11 02/08/2025 10:09:42 Gouty arthropathy 207256631 M10.09 Hypertensive disorder 38 544348 I10 Idiopathic hypercalcemia 356676748 E83.52 Depressive disorder 3548 9007 F32.A Polyarthropathy 38068278 M13.0 Obesity 597495629 E66.9 Osteoporosis 34687124 M8 1.0 Obstructiv e sleep apnea syndrome 27033231 G47.33 Hyperlipidemia 90943558 E78.5 Liver enzy mes level above reference range 496445015 R74.01 resolved Osteoarthr itis of knee 137360229 M17.9 Hyperparathyroidism 6699 9008 E21.3 62103 Dysuria 84618677 R30.0 [id number] Health Concerns Section Related Observation LastModified by Organization Detai ls LastModified Time None Recorded Concern Status LastModified by Organization Details LastModified Time None Recorded Advance Directives Directive Y: Payers Insurance Date Sequence Insurance Name Policy Number Policy Dunham Covered Member ID Dunham Member ID Guarantor Name 02/05/2025 1 [facility] (MEDICARE REPLACEMENT/A DVANTAGE - HMO) [id number] Rody Monson [id number] Rody Monson Notes Date Note Type Note [...] Faye MD [address], [place], [address], [employer] 07/21/2024 14:54:26 08/17/2024 text/html ACV: C/o cough, congestion, drainage for last 3 weeks, on/off. Pt has been doing otc meds and its still not getting better. Due to cough, she is c/o middle back area pain too. Denies any recent fall/trauma. Michael Faye MD [address], [place], [address], [employer] 08/17/2024 15:14:28 09/21/2024 text/html Pt is here for her annual exam. Doing overall better. Denies any problem with meds. Denies any new concern. Still has lot of urinary issues and she called yesterday to be started on Amoxicillin for it. Pt is f/u with Uro at [place] for her recurrent UTIs and kidney stones [...] by them. Michael Faye MD [address], [place], [address], [employer] 09/21/2024 14:29:00 10/05/2024 text/html Pt is here for f/u on her annual labs. Doing overall better. Denies any problem with meds. Denies any new concern. Pt is f/u with Uro at [place] for her recurrent UTIs and kidney stones [...] supplements by them. Michael Faye MD [address], [place], [address], [facility] [facility] 10/05/2024 10:32:33 02/08/2025 text/html FUV + ACV: [...] yet. Pt is f/u with Uro at [place] for her recurrent UTIs and kidney stones [...] Faye MD [address], [place], [address], [facility] 02/08/2025 10:30:07 OBGyn Episode No OBEpisode recorded.
--- OUTSIDE RECORDS SUMMARY | 2025-03-26 01:47 | XMS_ITS | Clinical Summary ---
Author Organization [facility] Address [facility] [place] [address] Care Team Providers Care Tableau Architect Name Role Phone Unavailable Primary Care Provider [...] Scan (General) 11/11/2019 COVID-19 Vaccine ( - 2024-2 6 season) 2025 Influenza Adult (#1) 2025 RSV Immunization or 60+ Years (1 - 1-dose 75+ series) 2029 Hepatitis A Vaccines Aged Out No long er eligible based on patient's age to complete this topic Meningococcal B Vaccine Aged Out No l onger eligible based on patient's age to complete this topic Meningococcal Vaccine Aged Out No kristy teodoro eligible based on patient's age to complete this topic RSV Immunizations Under 20 Months Aged Out No longer eligible based on patient's age to complete this topic
--- OUTSIDE RECORDS SUMMARY | 2025-03-26 01:47 | XMS_ITS | Clinical Summary ---
Author Organization [facility] Address [address] [place] [address] Phone Care Team Providers Care Lab Rep Name Role Phone Daly Pinto NP Primary Care Provider [phone] Allergies Active Allergy Reactions Criticality Noted Date [...] Immunizations Immunization Administration Dates Next Due Influenza Recombinant Freda valent Injectable Preservative Free 02/22/2019 Influenza TIV (IM) 02/23/2015 Influenza, Injectable, Quadrivalent 02/12/2018 Influenza, Injectable, Quadrivalent, Preservativ e Free 02/12/2018,04/28/2016 Influenza, split virus, trivalent, PF 03/24/2014 Tdap 09/22/2017 Zoster 02/23/2015 Family History Medical [...] exists Insurance [employer] MEDICARE Care Teams Lab Rep Relationship Specialty Start Date End Date Daly Pinto NP [address] [address] PCP - General Family Medicine 10/19/18
[2025-03-26] MEDS: LACTATED RINGERS 1,000 ML 999 ML IV CONT (02:24)
[2025-03-26] MEDS: HYDROmorphone HCL INJ (*CRX) 1 MG/ML SYR IV PUSH ×2 (02:24→04:28)
[2025-03-26 02:33] LABS: Hematocrit 34.8 % (37.0-47.0); Hemoglobin 11.2 g/dL (12.0-15.0); Immature Granulocyte Percent A 0.9 % (0-0.5); Lymphocytes Absolute Auto 1.40 K/mm3 (0.9-3.2); Mean Corpuscular HGB Conc 32.2 g/dl (32-36); Mean Corpuscular Hemoglobin 30.9 pg (26-34); Mean Corpuscular Volume 96.1 fl (80-100); Nucleated Red Blood Cells Absolute Auto 0.000 K/mm3 (0.0-0.012); Nucleated Red Blood Cells Perc 0.0 % (0.0-0.2); Platelet Count Result 298 k/mm3 (150-375); Red Blood Count 3.62 M/mm3 (4.2-5.4); White Blood Count 18.0 K/mm3 (4.5-10.0)
--- NOTE | 2025-03-26 02:34 | ED_ITS ---
HPI - Abdominal Pain General Chief Complaint: Urogenital-Female Stated Complaint: Vomiting, left flank pain, hx stones x 2 weeks ago Time Seen by Provider: 03/26/25 01:37 EXECUTIVE VICE PRESIDENT AND CHIEF FINANCIAL OFFICER History of Present Illness HPI narrative: 69-year-old female with a history of recent lithotripsy and ureteral stent placement with interval removal on . She had a previous large calculus that was broken up with lithotripsy and removed with basket retrieval. Has been doing well since the stent removal been taking tramadol for pain control. Over last day she has been having some nausea and vomited several times and having worsening pain in her left flank. On prophylactic antibiotics for UTIs. Recently had amoxicillin at the cysto appointment for removal of the stent. Denies any fever, chills. No cough. No recent illnesses otherwise. Endorsing left flank pain going towards her groin as well as nausea mildly presently. Was otherwise in her normal state of health. Related Data Home Medications ?Medication ?Instructions ?Recorded ?Confirmed ?Last Taken ?Type aspirin 81 mg tablet,delayed 81 mg PO DAILY 05/10/19 1 05/26/24 03/25/25 History release (Aspir-) losartan 100 mg tablet 100 mg PO QAM 05/10/1903/0705/12/19 07:00 History cetirizine 10 mg tablet (Allergy 10 mg PO DAILY PRN al lergy symptoms 09/09/22 03/07/25 Unknown History Relief (cetirizine)) tramadol 50 mg tablet 50 mg PO Q6H PRN pain 03/07/25 10/14/24 History triamterene 37.5 1 cap PO DAILY 09/30/2202/22 Unknown History mg-hydrochlorothiazide 25 mg capsule allopurinol 300 mg tablet 300 mg PO DAILY 10/22/2307/1903/25/25 History amlodipine 10 mg tablet 10 mg PO QAM 09/30/2403/25/25 History cephalexin 250 mg capsule 250 mg PO QAM 09/30/2403/2603/25/25 History meloxicam 7.5 mg tablet 7.5 mg PO BID 09/30/2403/07 Unknown History omega 5-jyn-gyf-fish oil 1,000 mg 1 cap PO DAILY 09/3003/07/25 Unknown History (120 mg-180 mg) capsule (Fish Oil) rosuvastatin 5 mg tablet 5 mg PO DAILY 09/30/2403/07 Unknown History Allergies Allergy/AdvReac Type Severity Reaction Status Date / Time nitrofurantoin (From Allergy Severe Anaphylaxis Verified 03/26/25 01:33 EXECUTIVE VICE PRESIDENT AND CHIEF FINANCIAL OFFICER Macrobid) Sulfa (Sulfonamide AdvReac Mild NAUSEA/VOMI Verified 03/26/25 01:33 EXECUTIVE VICE PRESIDENT AND CHIEF FINANCIAL OFFICER Antibiotics) TING Review of Systems 2 Review of Systems: As reviewed above in [facility] Past Medical History Medical History Allergies Arthritis Hx of renal calculi Hx of adenomatous polyp of colon Sleep apnea Rosacea Hypertension Functional dyspepsia GERD (gastroesophageal reflux disease) Surgical History Surgical History H/O tubal ligation History of left knee replacement History of right oophorectomy History of lithotripsy Hx of section Hx of cholecystectomy Hx of esophagogastroduodenoscopy Hx of colonoscopy Family History Family History Mother Hypertension Father Cerebral aneurysm Other Breast cancer Social History Social History Smoking packs per day: 1 Smoking cigarettes per day: 20.0 Years smoked: 20 Smoking pack-years: 20.00 Smoking status: Former smoker Tobacco type: cigarettes Smoking end date: 11/22/89 Alcohol intake: current Drinks per week: 1 Substance use: never Lack of Transportation: No Lack of Food: Never True Current Housing: I Have Housing Concerned About Future Housing: No Difficulty Paying Gas/Electric Bills: No Difficulty Paying for Meds: No Currently Unemployed: No Education: Trade/Vocational Certificate Difficulty w/ Childcare or Family Care: No Living arrangements: with family Additional living arrangements comments: HUSB Spiritual care concerns: No Exam 2 Narrative: GENERAL: [Well-appearing, well-nourished, and in no acute distress.] HEAD: [Normocephalic, atraumatic.] EYES: [PERRLA and EOMI.] ENT: Nares clear, no rhinorrhea or epistaxis. Mucous membranes moist. NECK: Supple. CHEST: [Clear to auscultation. No respiratory distress.] HEART: [Regular rate and rhythm]. No murmur heard. [Normal peripheral pulses.] ABDOMEN: Left flank/CVA tenderness without any overlying skin changes. Soft and nontender upper abdomen. No peritonitis. EXTREMITIES: Normal range of motion. [No edema.] SKIN: Warm, dry, no rash. NEURO: [No focal deficits]. Alert and oriented [x3.] PSYCH: [Normal mood and affect.] Course Vital Signs Vital signs: Vital Signs Temperature 36.8 C 03/26/25 03:02 Pulse Rate 77 03/26/25 03:02 Respiratory Rate 16 03/26/25 03:02 Blood Pressure 182/82 H 03/26/25 03:02 Pulse Oximetry 99 03/26/25 03:02 Oxygen Delivery Room Air 03/26/25 03:02 Temperature 36.6 C 03/26/25 09:11 Pulse Rate 86 03/26/25 10:05 Respiratory Rate 14 03/26/25 10:05 Blood Pressure 138/72 03/26/25 10:05 Pulse Oximetry 92 03/26/25 09:41 Oxygen Delivery Room Air 03/26/25 10:05 Oxygen Flow Rate 10 03/26/25 09:11 MDM - Abdominal Pain MDM Narrative Medical decision making narrative: 69-year-old female with a history of recent lithotripsy and ureteral stent placement with interval removal on . She had a previous large calculus that was broken up with lithotripsy and removed with basket retrieval. Has been doing well since the stent removal been taking tramadol for pain control. Over last day she has been having some nausea and vomited several times and having worsening pain in her left flank. On prophylactic antibiotics for UTIs. Recently had amoxicillin at the cysto appointment for removal of the stent. Denies any fever, chills. No cough. No recent illnesses otherwise. Endorsing left flank pain going towards her groin as well as nausea mildly presently. Was otherwise in her normal state of health. Left flank/CVA tenderness without any overlying skin changes. Soft and nontender upper abdomen. No peritonitis. Hemodynamically hypertensive but likely from pain given her on discomfort. Saturating 94-97% on room air. Pulse 82. Afebrile. Suspect musculoskeletal or ureteral pain and spasm from recent procedures or less likely complication from ureteral stent placement or removal. Low suspicion infectious process. CT scan without contrast obtained, laboratory studies urinalysis ordered. She was given fluids Zofran and Dilaudid. Laboratory studies show creatinine slightly above baseline but around previous elevations. Given a fluid bolus here. Patient did require several rounds of pain medications for analgesia but now presently comfortable. Vital signs all normalized and hypertension resolved with pain medicine. Given a dose of Zofran as well. Urinalysis without any bacteria. No nitrites. No convincing evidence of urinary tract infection. CT scan was independently reviewed and also interpreted by radiology. Patient has mild left hydro and a 7 x 5 x 17 mm renal calculus obstruction the proximal left ureter representing multiple stacked calculi from likely previous lithotripsy attempt. Likely source of patient's symptoms. Patient re-evaluated and doing well but still having discomfort. Spoke to the on-call urologist Dr. Ko regarding options for therapy. Recommendations are at this time or for placing a new ureteral stent and patient will be going to the OR from the ED and then likely discharged from PACU based on our discussion. Relayed this information to the patient. She has not eaten anything since last afternoon and comfortable with plan for procedure and likely discharge. Awaiting OR at this time. Patient signed over to morning physician pending going to OR. Medical Records Attestation: I reviewed the patient's medical records. Lab Data Attestation: I reviewed the patient's lab results. 03/26/25 02:28 03/26/25 02:28 Labs: Lab Results 03/26/25 03/26/25 Range/Units 02:28 02:46 WBC 18.0 H (4.5-10.0) K/mm3 RBC 3.62 L (4.2-5.4) M/mm3 Hgb 11.2 L (12.0-15.0) g/dL Hct 34.8 L (37.0-47.0) % MCV 96.1 (80-100) fl MCH 30.9 (26-34) pg MCHC 32.2 (32-36) g/dl RDW 14.1 (11.5-14.5) % Plt Count 298 (150-375) k/mm3 MPV 9.9 (7.4-10.4) fl Immature Gran % (Auto) 0.9 H (0-0.5) % Neut % (Auto) 83.0 H (45.5-73.1) % Lymph % (Auto) 7.8 L (18.3-44.2) % Cross % (Auto) 5.4 (2.6-8.5) % Eos % (Auto) 2.3 (0-4.4) % Baso % (Auto) 0.6 (0.2-1.2) % Lymph # (Auto) 1.40 (0.9-3.2) K/mm3 Cross # (Auto) 1.0 H (0.1-0.6) K/mm3 Eos # (Auto) 0.4 H (0-0.3) K/mm3 Baso # (Auto) 0.1 (0.0-0.1) K/mm3 Abs Immat Gran (auto) 0.16 H (0.00-0.031) K/mm3 Absolute Neuts (auto) 14.9 H (1.3-6.7) K/mm3 Absolute Nucleated RBC 0.000 (0.0-0.012) K/mm3 Nucleated RBC % 0.0 (0.0-0.2) % Sodium 133 L (137-145) mmol/L Potassium 4.0 (3.4-5.0) mmol/L Chloride 100 (98-107) mmol/L Carbon Dioxide 23 (22-30) mmol/L Anion Gap 10 (4-12) mmol/L BUN 23 H (7-17) mg/dL Creatinine 1.23 H (0.7-1.0) mg/dL Estim Creat Clear Calc Not Reportable Estimated GFR 43 L (59 - ) Glucose 123 H (65-110) mg/dL Calcium 10.5 H (8.4-10.2) mg/dL Total Bilirubin 0.8 (0.2-1.3) mg/dL AST 24 (14-36) U/L ALT 31 (6-35) U/L Alkaline Phosphatase 73 (38-126) U/L Total Protein 7.2 (6.3-8.2) g/dL Albumin 4.4 (3.5-5.1) g/dL Urine Color Yellow (Yellow) Urine Appearance Clear (Clear) Urine pH 7.5 (5.0-9.0) Ur Specific [place] 1.015 (1.001-1.035) Urine Protein Negative (Negative) mg/dL Urine Glucose (UA) Negative (Negative) mg/dL Urine Ketones Negative (Negative) mg/dL Ur Blood (Man) Negative (Negative) Urine Nitrate Negative (Negative) Urine Bilirubin Negative (Negative) Urine Urobilinogen 0.2 (<2.0) mg/dL Leukocyte Esterase Rfl 1+ H (Negative) KISHA/UL Urine RBC 0-2 (0-2) /hpf Urine WBC 11-20 H (0-3) /hpf Ur Squamous Epith Cells None seen (Few) /hpf Urine Bacteria None seen /hpf Urine Casts 0-2 Imaging Data Attestation: I personally reviewed and interpreted this imaging study as follows: My impression: New obstructing ureteral stone likely aggregate of previous kidney stone fragments. Mild left hydro. Radiologist's impression: ITS Impressions Abdomen/Pelvis CT 03/26/25 07:33 IMPRESSION: 1. Hydronephrosis left kidney due to below. 2. Proximal left ureter linear hyperdense focus likely tandem stones. Less likely retained catheter fragment. 3. Additional findings as above. Discharge Plan Discharge Clinical Impression: Acute left flank pain, Calculus of proximal left ureter Patient Disposition: Still a Patient Condition: Stable
[2025-03-26] MEDS: ONDANSETRON INJ 4 MG/2 ML VIAL IV PUSH (02:35)
[2025-03-26 02:42] LABS: Alanine Aminotransferase 31 U/L (6-35); Albumin Level 4.4 g/dL (3.5-5.1); Alkaline Phosphatase 73 U/L (38-126); Anion Gap 10 mmol/L (4-12); Aspartate Amino Transferase 24 U/L (14-36); Bilirubin,Total 0.8 mg/dL (0.2-1.3); Blood Urea Nitrogen 23 mg/dL (7-17); Calcium 10.5 mg/dL (8.4-10.2); Carbon Dioxide 23 mmol/L (22-30); Chloride 100 mmol/L (98-107); Estimated Glomerular Filt Rate 43; Glucose 123 mg/dL (65-110); Potassium 4.0 mmol/L (3.4-5.0); Sodium 133 mmol/L (137-145); Total Protein 7.2 g/dL (6.3-8.2)
[2025-03-26 02:58] LABS: Add Urine Microscopic? YES; Appearance Urine Clear (Clear); Glucose Urine UA Negative (Negative); Leukocyte Esterase Ur 1+ LEU/UL (Negative); Nitrate Urine Negative (Negative); Non Pathogenic Casts 0-2; Specific Grav Ur 1.015 (1.001-1.035)
--- OUTSIDE RECORDS SUMMARY | 2025-03-26 06:47 | XMS_ITS | Clinical Summary ---
Author Organization [facility] Address [address] [place] [address] Care Team Providers Care Paraeducator Name Role Phone Fabiola Melo MD Unavailable [phone] Brittany Elias MD Primary Care Provider Source Comments [facility],non-owned Affiliates and Associated Physician Practices is amultiple site organization consisting of ambulatory clinics and hospital sitesin [place], [place], [place]. This disclosure is being madepursuant to the Care Everywhere program and may not contain all information available regarding this patient. 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 Gender Identity Not on file Sexual Orientation [...] this topic Medical Devices Implanted Type Area Retail Leader Device Identifier Shelf Expiration Date Model / Serial / Lot Cmnt Bone Cblt 40gm Hvisc Strl Implanted:Qty: 1 on 02/11/2018 by Toño Johnston MD at [facility] Left: Knee [employer] 02/21/2019 [id number] / / [id number] Cmpnt Ptlr 28mm 1 Pg Wire Ascnt Arcm Kn Implanted:Qty: 1 on 02/11/2018 by Toño Johnston MD at [facility] Left: Knee [employer] 01/29/2023 [id number] / / [id number] Tray Tib 71mm Kn Cocr I Beam Implanted:Qty: 1 on 02/11/2018 by Toño Johnston MD at [facility] Left: Knee [employer] 12/02/2027 [id number] / / [id number] Cmpnt Fem Kn Lt Cr Cmnt Prm Vngrd Intlk Implanted:Qty: 1 on 02/11/2018 by Toño Johnston MD at [facility] Left: Knee [employer] 10/21/2027 [id number] / / [id number] [id number] Vngrd Arcm Kn Ant Stab Implanted:Qty: 1 on 02/11/2018 by Toño Johnston MD at [facility] Left: Knee [employer] 12/22/2022 [id number] / / [id number] Procedures Procedure Name Priority Date/Time Associated Diagnosis [...] LAB - CHEMISTRY ORDERABLES Fi nal Result [facility] [address] [place] [address] from Last 3 Months or Most Recently Relevant to Health Maintenance Insurance [facility] MANAGED MEDICARE ADV SELF PAY NO INSURANCE Member Subscriber Plan / Payer (Ef fective for All Dates) Name:aJcob Monson Member ID:Not on file Relation to Subscriber:Not on file Name:JACOB MONSON Subscriber ID:Not on file (Home) Address: [address] [place] [address] Payer ID:Not on file Group ID:Not on file Type:Self Pay Address: [place], [place] Advance Directives * Full Code (Latest Code Status on File) Date Activated Date Inactivated Comments 02/11/2018 11:11 AM 02/14/2018 1:10 PM Care Teams Paraeducator Relationship Specialty Start Date End Date Brittany Elias MD [address] [place] [id number] PCP - General 05/26/19 [place] [id number] [facility] [address] [place] [id number] Orthopedic Surgery 06/06/14
--- OUTSIDE RECORDS SUMMARY | 2025-03-26 06:47 | XMS_ITS | Clinical Summary ---
Author Organization [facility] Address [facility] [place] [address] Care Team Providers Care Press Supervisor Name Role Phone Unavailable Primary Care Provider [...]
--- OUTSIDE RECORDS SUMMARY | 2025-03-26 06:47 | XMS_ITS | Clinical Summary ---
Author Organization [facility] Address [address] [place] [address] Phone Care Team Providers Care Information Systems Audit Manager Name Role Phone Daly Pinto ELECTRICAL APPLIANCE MECHANIC, ANIMAL TECH Primary Care Pro vider Medications Aspirin 81 [...] Comments Blood Pressure 130/86 04/08/2019 8:56 AM RN PATIENT CARE Pulse 70 04/08/2019 8:56 AM RN PATIENT CARE Temperature - - Respiratory Rate - - Oxygen Saturation 98% 04/08/2019 8:56 AM RN PATIENT CARE Inhaled Oxygen Concentration - - Weight 108 kg (238 lb) 04/08/2019 8:56 AM RN PATIENT CARE Height 160 cm (5' 3) 04/08/2019 8:56 AM RN PATIENT CARE Body Mass Index 42.16 04/08/2019 8:56 AM RN PATIENT CARE Plan of Treatment Health Maintenance Due Date Last Done Comments Hepatitis C Virus (HCV) Screening 1955 Cologuard 11/11/1999 Immunochemical Fecal Occult Blood 11/11/1999 Pneumococcal Immunization (50+ years) (1 of 1 - PCV) 2004 Zoster Immunization (2 of 3) 04/19/2015 02/22/2015 Influenza Immunization (#1) 01/23/202501/24, 04/28/2016, 02/22/2015, Additional history exists SARS-COV-2 Immunization (1 - 2024- season) 2025 Colonoscopy 05/12/2026 05/12/2019 Colorectal Cancer [...] Health Maintenance Insurance [facility] Care Teams Information Systems Audit Manager Relationship Specialty Start Date End Date Daly Pinto APRN, ANIMAL TECH [address] [place] [address] PCP - General Certified Nurse Practitioner 11/02/18
--- OUTSIDE RECORDS SUMMARY | 2025-03-26 06:47 | XMS_ITS | Clinical Summary ---
Author Organization [facility] Address [address] [place] [phone] Phone Care Team Providers Care Computer Project Manager Name Role Phone Daly Pinto NP Primary Care Provider [phone] Allergies Active Allergy Reactions Criticality Noted Date [...] exists Insurance [employer] MEDICARE Care Teams Computer Project Manager Relationship Specialty Start Date End Date Daly Pinto NP [address] [address] PCP - General Family Medicine 10/19/18
--- NOTE | 2025-03-26 08:05 | PM.HPGS ---
History of Present Illness History of Present Illness Consent: Risks, benefits, and alternatives have been discussed and questions answered. Patient agrees to proceed with procedure. Chief complaint: Vomiting, left flank pain, hx stones x 2 weeks ago Narrative: Rody oMnson is a 69 year old female with history of recurrent urolithiasis having undergone both ESWL and ureteroscopy in the recent past. Last week she had a ureteral stent removed and now presents with recurrent left flank pain and imaging showing 1 or 2 stones in her left proximal ureter. She has had no fever chills or gross hematuria. Review of Systems Review of Systems: All systems reviewed & are unremarkable except as noted in HPI and below PMFSH Past Medical History Medical History Allergies Arthritis Hx of renal calculi Hx of adenomatous polyp of colon Sleep apnea Rosacea Hypertension Functional dyspepsia GERD (gastroesophageal reflux disease) Surgical History Surgical History H/O tubal ligation History of left knee replacement History of right oophorectomy History of lithotripsy Hx of section Hx of cholecystectomy Hx of esophagogastroduodenoscopy Hx of colonoscopy Family History Family History Mother Hypertension Father Cerebral aneurysm Other Breast cancer Social History Social History Smoking packs per day: 1 Smoking cigarettes per day: 20.0 Years smoked: 20 Smoking pack-years: 20.00 Smoking status: Former smoker Tobacco type: cigarettes Smoking end date: 11/22/89 Alcohol intake: current Drinks per week: 1 Substance use: never Lack of Transportation: No Lack of Food: Never True Current Housing: I Have Housing Concerned About Future Housing: No Difficulty Paying Gas/Electric Bills: No Difficulty Paying for Meds: No Currently Unemployed: No Education: Trade/Vocational Certificate Difficulty w/ Childcare or Family Care: No Living arrangements: with family Additional living arrangements comments: HUSB Spiritual care concerns: No Meds Home Medications and Allergies Home Medications ?Medication ?Instructions ?Recorded ?Confirmed ?Type aspirin 81 mg tablet,delayed 81 mg PO DAILY 05/10/19 03/26/25 History release (Aspir-) losartan 100 mg tablet 100 mg PO QAM 05/10/19 03/07/25 History cetirizine 10 mg tablet (Allergy 10 mg PO DAILY PRN allergy symptoms 09/09/22 03/07/25 History Relief (cetirizine)) tramadol 50 mg tablet 50 mg PO Q6H PRN pain 09/09/22 03/07/25 History triamterene 37.5 1 cap PO DAILY 09/30/22 03/07/25 History mg-hydrochlorothiazide 25 mg capsule allopurinol 300 mg tablet 300 mg PO DAILY 10/22/23 03/26/25 History epinephrine 0.3 mg/0.3 mL 0.3 mg (0.3 mL) IM ONCE #1 ea 06/15/24 03/07/25 Rx injection, auto-injector (EpiPen) amlodipine 10 mg tablet 10 mg PO QAM 09/30/24 03/26/25 History cephalexin 250 mg capsule 250 mg PO QAM 09/30/24 03/26/25 History meloxicam 7.5 mg tablet 7.5 mg PO BID 09/30/24 03/07/25 History omega 1-ebh-cij-fish oil 1,000 mg 1 cap PO DAILY 09/30/24 03/07/25 History (120 mg-180 mg) capsule (Fish Oil) rosuvastatin 5 mg tablet 5 mg PO DAILY 09/30/24 03/07/25 History tramadol 50 mg tablet 50 mg PO Q6H PRN pain #20 tabs 10/14/24 03/07/25 Rx hydrocodone 5 mg-acetaminophen 325 1 tablet PO Q6H PRN pain #12 tabs 03/14/25 Rx mg tablet oxybutynin chloride 5 mg tablet 5 mg PO DAILY PRN bladder spasms 03/14/25 Rx #20 tabs phenazopyridine 100 mg tablet 100 mg PO TID PRN urinary 03/14/25 Rx (Pyridium) discomfort #9 tabs polyethylene glycol 3350 17 17 g PO DAILY 7 days #119 grams 03/14/25 Rx gram/dose oral powder (Miralax) tamsulosin 0.4 mg capsule 0.4 mg PO HS #14 caps 03/14/25 Rx Allergies Allergy/AdvReac Type Severity Reaction Status Date / Time nitrofurantoin (From Allergy Severe Anaphylaxis Verified 03/26/25 01:33 MEDICAL RECORD SPECIALIST Macrobid) Sulfa (Sulfonamide AdvReac Mild NAUSEA/VOMI Verified 03/26/25 01:33 MEDICAL RECORD SPECIALIST Antibiotics) TING Vital Signs Vital Signs - 24 hr 03/26/25 03:02 03/26/25 03:40 03/26/25 04:29 Temperature 98.2 F Pulse Rate 77 Respiratory Rate 16 Blood Pressure 182/82 H 157/83 H 125/78 Pulse Oximetry 99 Oxygen Delivery Room Air 03/26/25 05:50 03/26/25 06:05 03/26/25 07:51 Temperature Pulse Rate 82 82 Respiratory Rate 16 18 Blood Pressure 166/77 H 139/71 130/77 Pulse Oximetry 100 95 Oxygen Delivery Exam Const: General: no acute distress Resp: Effort & Inspection: normal respiratory effort GI: Inspection: non-distended GI Palp: No abdominal tenderness and No Guarding due to palpation present (GI) Auscultation: normal bowel sounds Assessment and Plan Assessment and plan (1) Calculus of proximal left ureter: Code(s): N20.1 - Calculus of ureter Status: Acute Assessment and Plan: Patient has 1 or 2 obstructing left proximal ureteral stones with possible low-grade urinary tract infection I will plan simple cystoscopy with left ureteral stent placement today. In the event her stones have migrated in the past several hours I could try simple ureteroscopy if there in the distal ureter. I have explained to patient, however, that likely this will just be simple stent placement with subsequent definitive stone intervention in the future.
--- NOTE | 2025-03-26 08:08 | WPDHPUPDATE1 ---
History and Physical Update Update Date/Time: 03/26/25 08:08 History and Physical has been reviewed, including an updated exam of the patient. There are NO changes in the patient's condition. Risks, benefits, and alternatives have been discussed and questions answered. Patient agrees to proceed with procedure.
[2025-03-26] MEDS: cefTRIAXone 1 GM in SODIUM CHLORIDE 0.9% IV 50 ML 100 ML IVPB (08:43)
--- NOTE | 2025-03-26 08:45 | WPDANESEPPF ---
Anes - Initial Pre Proc Eval Procedure: Operation Date: 03/26/25 08:30 Proposed Procedures p Cysto, RPG, Stone Ext, Stent Placement(Left) - Armando Ko MD Date/Time: 03/26/25 08:45 Surgeon: Armando Ko MD Pre Op Diagnosis: Vomiting, left flank pain, hx stones x 2 weeks ago Patient Data Age: 69 Gender: F Height: 1.6 m Weight: 105.6 kg Last Vital Signs Temp 98.2 F 03/26/25 03:02 Pulse 82 03/26/25 07:51 Resp 18 03/26/25 07:51 BP 130/77 03/26/25 07:51 Pulse Ox 95 03/26/25 07:51 O2 Del Method Room Air 03/26/25 03:02 Allergies Allergy/AdvReac Type Severity Reaction Status Date / Time nitrofurantoin (From Allergy Severe Anaphylaxis Verified 03/26/25 01:33 [employer] Macrobid) Sulfa (Sulfonamide AdvReac Mild NAUSEA/VOMI Verified 03/26/25 01:33 [employer] Antibiotics) TING Home Medications ?Medication ?Instructions ?Recorded ?Confirmed ?Type aspirin 81 mg tablet,delayed 81 mg PO DAILY 05/10/19 03/26/25 History release (Aspir-) losartan 100 mg tablet 100 mg PO QAM 05/10/19 03/07/25 History cetirizine 10 mg tablet (Allergy 10 mg PO DAILY PRN allergy symptoms 09/09/22 03/07/25 History Relief (cetirizine)) tramadol 50 mg tablet 50 mg PO Q6H PRN pain 09/09/22 03/07/25 History triamterene 37.5 1 cap PO DAILY 09/30/22 03/07/25 History mg-hydrochlorothiazide 25 mg capsule allopurinol 300 mg tablet 300 mg PO DAILY 10/22/23 03/26/25 History epinephrine 0.3 mg/0.3 mL 0.3 mg (0.3 mL) IM ONCE #1 ea 06/15/24 03/07/25 Rx injection, auto-injector (EpiPen) amlodipine 10 mg tablet 10 mg PO QAM 09/30/24 03/26/25 History cephalexin 250 mg capsule 250 mg PO QAM 09/30/24 03/26/25 History meloxicam 7.5 mg tablet 7.5 mg PO BID 09/30/24 03/07/25 History omega 0-lmo-mpn-fish oil 1,000 mg 1 cap PO DAILY 09/30/24 03/07/25 History (120 mg-180 mg) capsule (Fish Oil) rosuvastatin 5 mg tablet 5 mg PO DAILY 09/30/24 03/07/25 History tramadol 50 mg tablet 50 mg PO Q6H PRN pain #20 tabs 10/14/24 03/07/25 Rx hydrocodone 5 mg-acetaminophen 325 1 tablet PO Q6H PRN pain #12 tabs 03/14/25 Rx mg tablet oxybutynin chloride 5 mg tablet 5 mg PO DAILY PRN bladder spasms 03/14/25 Rx #20 tabs phenazopyridine 100 mg tablet 100 mg PO TID PRN urinary 03/14/25 Rx (Pyridium) discomfort #9 tabs polyethylene glycol 3350 17 17 g PO DAILY 7 days #119 grams 03/14/25 Rx gram/dose oral powder (Miralax) tamsulosin 0.4 mg capsule 0.4 mg PO HS #14 caps 03/14/25 Rx Laboratory Tests 03/26/25 03/26/25 02:28 02:46 WBC 18.0 H K/mm3 (4.5-10.0) RBC 3.62 L M/mm3 (4.2-5.4) Hgb 11.2 L g/dL (12.0-15.0) Hct 34.8 L % (37.0-47.0) MCV 96.1 fl (80-100) MCH 30.9 pg (26-34) MCHC 32.2 g/dl (32-36) RDW 14.1 % (11.5-14.5) Plt Count 298 k/mm3 (150-375) MPV 9.9 fl (7.4-10.4) Immature Gran % (Auto) 0.9 H % (0-0.5) Neut % (Auto) 83.0 H % (45.5-73.1) Lymph % (Auto) 7.8 L % (18.3-44.2) [place] % (Auto) 5.4 % (2.6-8.5) Eos % (Auto) 2.3 % (0-4.4) Baso % (Auto) 0.6 % (0.2-1.2) Lymph # (Auto) 1.40 K/mm3 (0.9-3.2) [place] # (Auto) 1.0 H K/mm3 (0.1-0.6) Eos # (Auto) 0.4 H K/mm3 (0-0.3) Baso # (Auto) 0.1 K/mm3 (0.0-0.1) Abs Immat Gran (auto) 0.16 H K/mm3 (0.00-0.031) Absolute Neuts (auto) 14.9 H K/mm3 (1.3-6.7) Absolute Nucleated RBC 0.000 K/mm3 (0.0-0.012) Nucleated RBC % 0.0 % (0.0-0.2) Sodium 133 L mmol/L (137-145) Potassium 4.0 mmol/L (3.4-5.0) Chloride 100 mmol/L (98-107) Carbon Dioxide 23 mmol/L (22-30) Anion Gap 10 mmol/L (4-12) BUN 23 H mg/dL (7-17) Creatinine 1.23 H mg/dL (0.7-1.0) Estim Creat Clear Calc Not Reportable Estimated GFR 43 L (59 - ) Glucose 123 H mg/dL (65-110) Calcium 10.5 H mg/dL (8.4-10.2) Total Bilirubin 0.8 mg/dL (0.2-1.3) AST 24 U/L (14-36) ALT 31 U/L (6-35) Alkaline Phosphatase 73 U/L (38-126) Total Protein 7.2 g/dL (6.3-8.2) Albumin 4.4 g/dL (3.5-5.1) Urine Color Yellow (Yellow) Urine Appearance Clear (Clear) Urine pH 7.5 (5.0-9.0) Ur Specific [place] 1.015 (1.001-1.035) Urine Protein Negative mg/dL (Negative) Urine Glucose (UA) Negative mg/dL (Negative) Urine Ketones Negative mg/dL (Negative) Ur Blood (Man) Negative (Negative) Urine Nitrate Negative (Negative) Urine Bilirubin Negative (Negative) Urine Urobilinogen 0.2 mg/dL (<2.0) Leukocyte Esterase Rfl 1+ H KISHA/UL (Negative) Urine RBC 0-2 /hpf (0-2) Urine WBC 11-20 H /hpf (0-3) Ur Squamous Epith Cells None seen /hpf (Few) Urine Bacteria None seen /hpf Urine Casts 0-2 Patient hx anesthesia problems: none Family hx anesthesia problems: none Results Review: All pre-operative results and documents have been reviewed as part of the pre-operative evaluation. PENDING SALE TO [facility] Past Medical History Medical History Allergies Arthritis Hx of renal calculi Hx of adenomatous polyp of colon Sleep apnea Rosacea Hypertension Functional dyspepsia GERD (gastroesophageal reflux disease) Surgical History Surgical History H/O tubal ligation History of left knee replacement History of right oophorectomy History of lithotripsy Hx of section Hx of cholecystectomy Hx of esophagogastroduodenoscopy Hx of colonoscopy Family History Family History Mother Hypertension Father Cerebral aneurysm Other Breast cancer Social History Social History Smoking packs per day: 1 Smoking cigarettes per day: 20.0 Years smoked: 20 Smoking pack-years: 20.00 Smoking status: Former smoker Tobacco type: cigarettes Smoking end date: 11/22/89 Alcohol intake: current Drinks per week: 1 Substance use: never Lack of Transportation: No Lack of Food: Never True Current Housing: I Have Housing Concerned About Future Housing: No Difficulty Paying Gas/Electric Bills: No Difficulty Paying for Meds: No Currently Unemployed: No Education: Trade/Vocational Certificate Difficulty w/ Childcare or Family Care: No Living arrangements: with family Additional living arrangements comments: [facility]USB Spiritual care concerns: No Anes - Eval Final PreProcedure Day of Procedure 03/26/25 08:45 Patient weight: morbidly obese Lungs: normal air movement Airway: Mallampati scale class II Neurological: alert and oriented Last oral intake: >/= 8 hours ASA classification: III Emergent: yes Anesthetic plan: proceed Anesthesia type and monitoring: general LMA and standard monitoring Results Review: All pre-operative results and documents have been reviewed as part of the pre-operative evaluation. AKSHAT on CPAP, HTN, hyperlipidemia, pt was here w ureteral stone 1-2 weeks ago, now returns for cysto and indicated procedures. Informed Consent: The patient's anesthetic plan and its attendant risks and benefits were discussed with the patient/family/POA. Questions were solicited and answers provided to the satisfaction of the patient/family/POA.
--- NOTE | 2025-03-26 09:10 | W.PM.PROC2 ---
Procedure Note - Detailed Date of Procedure 03/26/25 Pre-op Diagnosis Left ureteral stone Post-op Diagnosis Same Procedure Performed Cystoscopy, left retrograde pyelography, left ureteral stent placement Surgeon Armando Ko MD Anesthesia MAC Description of Procedure The patient was brought to the operative suite where she was prepped and draped in a routine sterile fashion while in the dorsal lithotomy position. A 19 F rigid cystoscope was placed in her bladder and the bladder was circumferentially inspected. The bladder neck and urethra were endoscopically normal. The bladder mucosa was without hyperemia. There was no intravesical foreign body or neoplasm. There was a single orthotopic ureteral orifice bilaterally. [place] catheter was used to obtain a left retrograde pyelogram to insure appropriate stent placement. I advanced .035 glidewire into the left renal pelvis under fluoroscopy. A 4.8F variable length ureteral stent was positioned with the proximal coil in the renal pelvis and the distal coil in the bladder. Scopes and wires were removed after emptying the patient's bladder. Drains Yes Packing No Pathology Yes Complications No immediate complications Condition Stable
[2025-03-26] MEDS: LACTATED RINGERS 1,000 ML 30 ML IV CONT (09:11)
--- NOTE | 2025-03-26 10:36 | SUR.PHASEII ---
PT WENT TO RESTROOM WHEN LEAVING. HAD LOTS OF SAND IN THE TOILET. DR BEAL CAME AND SAW AND TOLD HER THAT HER STONE MUST HAVE BEEN A COLLECTION OF STONES AND PROBABLY JUST PASSED MOST OF THEM.
== END 2025-03-26 10:15 | disposition home or self-care (01) ==
LOC: ANHED 06:43 → ANHSURGERY 06:45
PROVIDERS: Emergency Provider Student in an Organized Health Care Education/Training Program; PCP Family Medicine; Visit Provider Urology
PROC: (CPT 52352; principal; 2025-03-26 08:30)
DX: N20.1 Calculus of ureter (principal); E78.5 Hyperlipidemia, unspecified; I10 Essential (primary) hypertension; K21.9 Gastro-esophageal reflux disease without esophagitis; G47.33 Obstructive sleep apnea (adult) (pediatric); L71.9 Rosacea, unspecified; M19.90 Unspecified osteoarthritis, unspecified site; E66.01 Morbid (severe) obesity due to excess calories; Z68.41 Body mass index [BMI] 40.0-44.9, adult; Z79.82 Long term (current) use of aspirin; Z79.891 Long term (current) use of opiate analgesic; Z99.89 Dependence on other enabling machines and devices; Z98.890 Other specified postprocedural states; Z98.51 Tubal ligation status; Z90.49 Acquired absence of other specified parts of digestive tract; Z86.0100 Personal history of colon polyps, unspecified; Z87.891 Personal history of nicotine dependence; Z80.3 Family history of malignant neoplasm of breast
CPT/HCPCS: 52332; 36415; 74176; 74420; 80053; 81001; 85025; 87086; 96361; 96374; 96375; 96376; 99285; J0690; C1758; C1769; C2617; J0696; J1171; J2003; J2405; J2704; J7120; Q9966

== ENCOUNTER 2025-03-30 13:53 | Outpatient (CLI) | payer MEDICARE, SELFPAY ==
--- OUTSIDE RECORDS SUMMARY | 2009-04-02 09:15 | XMS_ITS | Continuity of Care Document ---
Author Organization [facility] Address [address] [place] [address] Phone Care Team Providers Care Merchandiser Retail Representative Name Role Phone Tomas Clayton Unavailable Unavailable Procedures Procedure Date Eye Exam Established Pt Ophthalmoscopy, Subsequent Office Consultation Ophthalmoscopy Advance Directives Directive Yes / No Effective Date File Name No Information Encounters Encounter Description Practice Location Reason(s) For Visit Diagnoses Date Provider Providers Copied on Encounter [facility], [address] [place] [address] [address], [place], [place], [id number], tel:[phone] [facility] No Information 9 Matilde Marin. [address] [place], [place], [facility], . [phone] Referring Provider: Tomas Berg, 12 [place], [place], [facility]. tel:[phone] Office Consultation [facility], [address] [place] [address] [address], [place], [place], [id number], tel:[phone] [facility] No Information [address]. [address] [place], [place], [facility], [place]. tel:[phone] Referring Provider: Marcio Lagunas, [address], [place], [place], [facility]. tel:[phone] Family History Family Member Type Diagnosis Age At Onset No Information Payers Payer name Insurance type Covered alliance party ID Authoriza tion(s) No Information Social [...]
--- NOTE | ~2025-03-30 | XR_ITS ---
PROCEDURE(S): X-ray abdomen/KUB 1 view INDICATION(S): Prelithotripsy COMPARISON(S): Abdomen and pelvis CT and retrograde pyelogram from March 26 TECHNIQUE: 2 supine radiographic images was/were obtained. FINDINGS: Bowel gas: The bowel gas pattern is non-specific. There is no evidence of bowel obstruction. Soft tissues: There is a left ureteral stent in place. No definite calcific densities are seen to abut the ureteral stent on plain film. Right upper quadrant surgical clips. Bones: Osseous structures appear to be intact. IMPRESSION: Left ureteral stent. No definite calcific densities are seen to abut the stent on plain film. Reviewed, dictated and finalized at location A. L CLEANER IMPRESSION: Left ureteral stent. No definite calcific densities are seen to abu t the stent on plain film.
--- OUTSIDE RECORDS SUMMARY | 2025-03-30 20:19 | XMS_ITS | Clinical Summary ---
Author Organization [facility] Address [address] [place] [id number] Phone Care Team Providers Care Sour Bleaching Pleater Name Role Phone Daly Pinto NP Primary Care Provider [phone] Allergies Active Allergy Reactions Criticality Noted Date [...] exists Insurance [employer] MEDICARE Care Teams Sour Bleaching Pleater Relationship Specialty Start Date End Date Daly Pinto NP [address] [id number] PCP - General Family Medicine 10/19/18
--- OUTSIDE RECORDS SUMMARY | 2025-03-30 20:19 | XMS_ITS | Clinical Summary ---
Author Organization [facility] Address [facility] [place] [address] Care Team Providers Care Bow Repairer Custom Name Role Phone Unavailable Primary Care Provider [...]
--- OUTSIDE RECORDS SUMMARY | 2025-03-30 20:19 | XMS_ITS | Data Portability ---
Author Organization [place] [facility] [employer], Main Office Address [address] [place] [address] Care Team Providers Care Personal Financial Counselor Name Role Phone FAYEMICHAEL FRANCO Primary Care Provider Assessment Encounter Date Assessment [...] in 2-3 months. Annual labs in 09/16. [email or web address] Not available 07/21/2024 12:22:19 09/21/2024 09/21/2024 68 [...] per schedule. Cont f/u with Uro at [place] as per schedule. Cont f/u with Ophtho [...] in 2-3 weeks. Annual labs in 09/17. [email or web address] Not available 09/21/2024 14:27:40 10/05/2024 10/05/2024 68 [...] per schedule. Cont f/u with Uro at [place] as per schedule. Cont f/u with Ophtho [...] Lipids in 02/16. Annual labs in 09/17. [email or web address] Not available 10/05/2024 10:31:44 02/08/2025 02/08/2025 69 yo F with - HYPERPARATHYROIDIS M, new - HYPERCALEMIA, chronic - RT KNEE OA, severe - HLD - HTG - HTN - POLYARTHROPATHY - OA - GOUT - OSTEOPOROSIS - DEPRESSION - KIDNEY STONES - RECURRENT UTIs - KASHAT (On Cpap) - OBESITY III Annual labs: [...] per schedule. Cont f/u with Uro at [place] as per schedule. Cont f/u with Ophtho [...] Lipids in 05/18. Annual labs in 09/17. [email or web address] Not available 02/08/2025 10:29:21 Plan of Treatment Reminders Order Date Submit Date Provider Last Modified By Organization Details Last Modified Time Details Appointments Any 15 2024 08:30A Odin Faye MD Not available Not available Not available Lab urinalysi s, dipstick 2024 025 [email or web address] [facility] On License Of [facility], [address] [place] [address], [id number], 02/08/2025 10:03:34 culture, urine [address] (Lab), [address] [place], [address], 02/08/2025 10:20:09 lipid panel, serum 2024 025 [email or web address] [facility] (Lab), [address] [place], [address], 02/08/2025 10:03:34 lipid panel, serum [email or web address] [place] [address] (Lab), [address] [place], [address], 01/31/2025 14:30:14 PTH (parathyr oid hormone), intact + calcium, serum or plasma [address] (Lab), [address] [place], [address], 09/28/2024 10:09:27 urinalysi s, dipstick 2024 025 [facility] On License Of [facility], [address] [place] [address], [id number], 09/21/2024 14:45:15 CBC w/ auto diff [address] (Lab), [address] [place], [address], 09/21/2024 14:49:44 CMP, serum or plasma 2024 025 [facility] (Lab), [address] [place], [address], 09/21/2024 20:01:42 urinalysi s complete, reflex culture [address] (Lab), [address] [place], [address], 09/21/2024 14:48:30 uric acid, serum or plasma 2024 025 [facility] (Lab), [address] [place], [address], 09/21/2024 20:01:35 lipid panel, serum 2024 025 [facility] (Lab), [address] [place], [address], 09/21/2024 20:01:46 TSH, serum or plasma 2024 025 [facility] (Lab), [address] [place], [address], 09/21/2024 20:36:14 glycohemo globin, total, blood 2024 025 [facility] (Lab), [address] [place], [address], 09/21/2024 20:26:48 vitamin D, 25-hydrox y, total, serum 2024 025 [email or web address] [facility] (Lab), [address] [place], [address], 09/28/2024 10:09:27 urinalysi s, dipstick 2024 025 [facility], [address] [facility], [place], [address], 07/21/2024 12:23:41 culture, urine 2024 025 [facility] (Lab), [address] [place], [address], 07/22/2024 07:44:27 Referral endocrino logy referral - [place]. Please call patient to schedule an appointme nt. Thank you. 2024 025 [email or web address] Madeleine Mcbride MD, [address], [place], [address], 01/05/2025 09:27:53 urologist referral - Recurrent UTIs ++ Please call patient to schedule an appointme nt with Ap Greco. Thank you. 2024 025 [email or web address] [facility], [address] [place] [address] [address], [place], [address], 10/21/2024 09:33:25 Procedures None recorded. Surgeries None recorded. Imaging None recorded. Medication Orders phenazopy ridine 200 mg tablet 2024 025 [facility], [address], [place], [address], 02/22/2025 05:02:14 amoxicill in 875 mg-potass ium clavulana te 125 mg tablet 2024 025 [facility], [address], [place], [address], 02/08/2025 10:05:55 alendrona te 70 mg tablet 2024 025 [facility], [address], [place], [address], 02/08/2025 10:03:49 amlodipin e 5 mg tablet 2024 025 [facility], [address], [place], [address], 02/08/2025 10:03:49 losartan 100 mg tablet 2024 025 [facility], [address], [place], [address], 02/08/2025 10:03:47 triamtere ne 37.5 mg-hydroc hlorothia zide 25 mg capsule 2024 025 [facility], [address], [place], [address], 02/08/2025 10:03:48 rosuvasta tin 10 mg tablet 2024 025 [facility], [address], [place], [address], 02/08/2025 10:03:47 allopurin ol 300 mg tablet 2024 025 [facility], [address], [place], [address], 02/08/2025 10:03:50 meloxicam 7.5 mg tablet 2024 025 [facility], [address], [place], [place], [address], 02/08/2025 10:03:49 escitalop marty 10 mg tablet 2024 [facility], [address], [place], [place], [address], 02/08/2025 10:03:49 alendrona te 70 mg tablet 2024 [facility], [address], [place], [address], 10/05/2024 10:27:49 amlodipin e 5 mg tablet 2024 [facility], [address], [place], [place], [address], 10/05/2024 10:27:50 losartan 100 mg tablet 2024 [facility], [address], [place], [place], [address], 10/05/2024 10:27:46 triamtere ne 37.5 mg-hydroc hlorothia zide 25 mg capsule 2024 [facility], [address], [place], [address], 10/05/2024 10:27:50 rosuvasta tin 10 mg tablet 2024 [facility], [address], [place], [address], 10/05/2024 10:27:47 allopurin ol 300 mg tablet 2024 [facility], [address], [place], [place], [address], 10/05/2024 10:27:47 meloxicam 7.5 mg tablet 2024 [facility], [address], [place], [address], 10/05/2024 10:27:47 escitalop marty 10 mg tablet 2024 [facility], [address], [place], [address], 10/05/2024 10:27:49 alendrona te 70 mg tablet 2024 [facility], [address], [place], [address], 09/21/2024 14:15:45 amlodipin e 5 mg tablet 2024 [facility], [address], [place], [place], [address], 09/21/2024 14:15:41 losartan 100 mg tablet 2024 025 [facility], [address], [place], [place], [address], 09/21/2024 14:15:43 triamtere ne 37.5 mg-hydroc hlorothia zide 25 mg capsule 2024 025 [facility], [address], [place], [address], 09/21/2024 14:15:42 allopurin ol 300 mg tablet 2024 025 [facility], [address], [place], [address], 09/21/2024 14:15:41 rosuvasta tin 5 mg tablet [email or web address] [place] [address] Pharmacy [address], [address], [place], [place], [address], 10/05/2024 10:30:40 meloxicam 7.5 mg tablet [address] [facility], [address], [place], [address], 09/21/2024 14:17:29 escitalop marty 10 mg tablet 2024 [facility], [address], [place], [address], 09/21/2024 14:15:42 azithromy poli 250 mg tablet 2024 [facility], [address], [place], [place], [address], 08/17/2024 15:00:30 prednison e 10 mg tablet 2024 [facility], [address], [place], [place], [address], 08/17/2024 15:00:29 albuterol sulfate HFA 90 mcg/actua tion aerosol inhaler [address] [facility], [address], [place], [address], 08/17/2024 15:01:31 benzonata te 200 mg capsule 2024 [facility], [address], [place], [place], [address], 08/17/2024 15:00:30 cephalexi n 500 mg capsule [address] [facility], [address], [place], [address], 08/17/2024 14:35:51 alendrona te 70 mg tablet 2024 [facility], [address], [place], [address], 07/21/2024 12:05:25 losartan 100 mg tablet 2024 [facility], [address], [place], [address], 07/21/2024 12:05:30 triamtere ne 37.5 mg-hydroc hlorothia zide 25 mg capsule 2024 025 [facility], [address], [place], [address], 07/21/2024 12:05:23 amlodipin e 10 mg tablet 2024 [facility], [address], [place], [address], 07/21/2024 12:08:14 allopurin ol 300 mg tablet [address] [facility], [address], [place], [address], 07/21/2024 12:11:32 rosuvasta tin 5 mg tablet [address] [facility], [address], [place], [address], 10/05/2024 10:30:40 meloxicam 7.5 mg tablet 2024 025 [facility], [address], [place], [address], 07/21/2024 12:05:27 escitalop marty 10 mg tablet 2024 025 [facility], [address], [place], [address], 07/21/2024 12:05:26 Patient TargetsNo targets recorded. Patient Instructions Encounter Date Encounter Id Patient Instructions Last Modified By Organization Details Last Modified Time 07/21/2024 [id number] Starting a Weight-Loss Plan: Care Instructions Not available 07/21/2024 12:05:10 09/21/2024 [id number] Starting a Weight-Loss Plan: Care Instructions [email or web address] Not available 09/21/2024 14:15:29 10/05/2024 [id number] Starting a Weight-Loss Plan: Care Instructions [email or web address] Not available 10/05/2024 10:27:38 02/08/2025 [id number] Starting a Weight-Loss Plan: Care Instructions [email or web address] Not available 02/08/2025 10:03:34 Reason for Referral Urologist Referral for Blood in urine Recurrent UTIs ++ Please call patient to schedule an appointment with Ap Greco. Thank you. Referring Physician: Michael Faye [facility], Encounter Date: 07/21/2024 Endocrinology Referral for H yperparathyroidism [place], [place]. Please call patient to schedule an appointment. Thank you. Referring Physician: Michael Faye [facility], Encounter Date: 10/05/2024 Results Created Date Observation Date Name Description Value Unit Range Abnormal Flag Note LastModifiedBy Organization Detail LastModifiedTime 07/21/19 25 07/21/2024 CULTU RE URINE urc ===== ===== ===== ===== ===== ===== ===== ===== ===== ===== ===== ===== ===== ===== ===== ===== ===== ===== ===== ===== ===== ===== ===== ===== Speci men NO.: [id number] Exam Statu s: Final Proce dure: [...] [place] [address] [place] [id number] Oxida se React ion N Extra Sensi [...] furan toin <=32 S S Not Available [facility] (Lab) [address] [place], [address], 07/23/2024 07:54:30 07/21/19 25 07/21/2024 urina lysis , dipst ick Leukocytes (reference range: negative afshan/ l) Trace Not Available [facility] [address], [address], 07/21/2024 12:04:50 07/21/19 25 07/21/2024 urina lysis , dipst ick Nitrite (reference rage: negative mg/dl) positi ve Not Available [address], [address], 07/21/2024 12:04:50 07/21/19 25 07/21/2024 urina lysis , dipst ick Urobilinogen (reference range: 0.2-1 mg/dl) 0.2 Not Available [address], [address], 07/21/2024 12:04:50 07/21/19 25 07/21/2024 urina lysis , dipst ick Protein (reference range: negative mg/dl) Negati ve Not Available [address], [address], 07/21/2024 12:04:50 07/21/19 25 07/21/2024 urina lysis , dipst ick pH (reference range: 5-7) 7.0 Not Available [address], [address], 07/21/2024 12:04:50 07/21/19 25 07/21/2024 urina lysis , dipst ick Blood (reference range: negative Cornelio/ l) Negati ve Not Available [address], [address], 07/21/2024 12:04:50 07/21/19 25 07/21/2024 urina lysis , dipst ick Specific [place] (reference range: 1.005-1.030) 1.010 Not Available [address], [address], 07/21/2024 12:04:50 07/21/19 25 07/21/2024 urina lysis , dipst ick Ketone (reference range: negative mg/dl) Negati ve Not Available [address], [address], 07/21/2024 12:04:50 07/21/19 25 07/21/2024 urina lysis , dipst ick Bilirubin (reference range: negative mg/dl) Negati ve Not Available [address], [address], 07/21/2024 12:04:50 07/21/19 25 07/21/2024 urina lysis , dipst ick Glucose (reference range: negative mg/dl) Negati ve Not Available [address], [address], 07/21/2024 12:04:50 07/21/19 25 07/21/2024 urina lysis , dipst ick Appearance Clear Not Available [address], [address], 07/21/2024 12:04:50 07/21/19 25 07/21/2024 urina lysis , dipst ick Color Pale Yellow Not Available [address], [address], 07/21/2024 12:04:50 09/22/19 25 09/21/2024 URINA LYSIS COMPL ETE/I RIS W/RFX color COLORL ESS Not Available [facility] (Lab) [address] [place], [address], 09/21/2024 19:46:22 09/22/19 25 09/21/2024 URINA LYSIS COMPL ETE/I RIS W/RFX appear CLEAR Not Available [facility] (Lab) [address] [place], [address], 09/21/2024 19:46:22 09/22/19 25 09/21/2024 URINA LYSIS COMPL ETE/I RIS W/RFX specific gravity 1.006 1.001- 1.030 Not Available [facility] (Lab) [address] [place], [address], 09/21/2024 19:46:22 09/22/19 25 09/21/2024 URINA LYSIS COMPL ETE/I RIS W/RFX pH 7.0 pH_un its 5.0-9. 0 Not Available [facility] (Lab) [address] [place], [address], 09/21/2024 19:46:22 09/22/19 25 09/21/2024 URINA LYSIS COMPL ETE/I RIS W/RFX leukocytes 75 afshan/u L negati ve- abnormal Not Available [facility] (Lab) [address] [place], [address], 09/21/2024 19:46:22 09/22/19 25 09/21/2024 URINA LYSIS COMPL ETE/I RIS W/RFX nitrite NEGATI VE negati ve- Not Available [facility] (Lab) [address] [place], [address], 09/21/2024 19:46:22 09/22/19 25 09/21/2024 URINA LYSIS COMPL ETE/I RIS W/RFX protein NEGATI VE mg/dL negati ve- Not Available [facility] (Lab) [address] [place], [address], 09/21/2024 19:46:22 09/22/19 25 09/21/2024 URINA LYSIS COMPL ETE/I RIS W/RFX glucose NORMAL mg/dL normal - Not Available [facility] (Lab) [address] [place], [address], 09/21/2024 19:46:22 09/22/19 25 09/21/2024 URINA LYSIS COMPL ETE/I RIS W/RFX ketones NEGATI VE mg/dL negati ve- Not Available [facility] (Lab) [address] [place], [address], 09/21/2024 19:46:22 09/22/19 25 09/21/2024 URINA LYSIS COMPL ETE/I RIS W/RFX urobilinogen NORMAL mg/dL normal - Not Available [facility] (Lab) [address] [place], [address], 09/21/2024 19:46:22 09/22/19 25 09/21/2024 URINA LYSIS COMPL ETE/I RIS W/RFX bilirubin NEGATI VE mg/dL negati ve- Not Available [facility] (Lab) [address] [place], [address], 09/21/2024 19:46:22 09/22/19 25 09/21/2024 URINA LYSIS COMPL ETE/I RIS W/RFX blood NEGATI VE mg/dL negati ve- Not Available [facility] (Lab) [address] [place], [address], 09/21/2024 19:46:22 09/22/19 25 09/21/2024 URINA LYSIS COMPL ETE/I RIS W/RFX white blood cells 0-8 /i??h pfi?? 0-8 Not Available [facility] (Lab) [address] [place], [address], 09/21/2024 19:46:22 09/22/19 25 09/21/2024 URINA LYSIS COMPL ETE/I RIS W/RFX red blood cells 0-4 /i??h pfi?? 0-4 Not Available [facility] (Lab) [address] [place], [address], 09/21/2024 19:46:22 09/22/19 25 09/21/2024 URINA LYSIS COMPL ETE/I RIS W/RFX bacteria OCCASI ONAL none seen- abnormal Not Available [facility] (Lab) [address] [place], [address], 09/21/2024 19:46:22 09/22/19 25 09/21/2024 URINA LYSIS COMPL ETE/I RIS W/RFX mucous OCCASI ONAL /i??l pfi?? none seen- abnormal Not Available [facility] (Lab) [address] [place], [address], 09/21/2024 19:46:22 09/22/19 25 09/21/2024 URINA LYSIS COMPL ETE/I RIS W/RFX squamous epithelial FEW /i??l pfi?? abnormal Not Available [facility] (Lab) [address] [place], [address], 09/21/2024 19:46:22 09/22/19 25 09/21/2024 URINA LYSIS COMPL ETE/I RIS W/RFX tranistional epithelial FEW /i??l pfi?? abnormal Not Available [facility] (Lab) [address] [place], [address], 09/21/2024 19:46:22 09/22/19 25 09/21/2024 CBC/C OMPLE TE BLD COUNT W/DIF F white blood cells 5.4 x10'3 /uL 4.2-10 .8 Not Available [facility] (Lab) [address] [place], [address], 09/21/2024 19:51:16 09/22/19 25 09/21/2024 CBC/C OMPLE TE BLD COUNT W/DIF F red blood cells 4.23 x10'6 /uL 3.80-5 .20 Not Available [facility] (Lab) [address] [place], [address], 09/21/2024 19:51:16 09/22/19 25 09/21/2024 CBC/C OMPLE TE BLD COUNT W/DIF F hemoglobin 13.7 g/dL 12.0-1 5.6 Not Available [facility] (Lab) [address] [place], [address], 09/21/2024 19:51:16 09/22/19 25 09/21/2024 CBC/C OMPLE TE BLD COUNT W/DIF F hematocrit 40.3 % 35.7-4 5.7 Not Available [facility] (Lab) [address] [place], [address], 09/21/2024 19:51:16 09/22/19 25 09/21/2024 CBC/C OMPLE TE BLD COUNT W/DIF F mean red cell volume 95.3 fL 82.0-9 9.0 Not Available [facility] (Lab) [address] [place], [address], 09/21/2024 19:51:16 09/22/19 25 09/21/2024 CBC/C OMPLE TE BLD COUNT W/DIF F mean red cell hemoglobin 32.4 pg 27.0-3 3.0 Not Available [facility] (Lab) [address] [place], [address], 09/21/2024 19:51:16 09/22/19 25 09/21/2024 CBC/C OMPLE TE BLD COUNT W/DIF F mean RBC HGB concentratio n 34.0 g/dL 31.0-3 6.0 Not Available [facility] (Lab) [address] [place], [address], 09/21/2024 19:51:16 09/22/19 25 09/21/2024 CBC/C OMPLE TE BLD COUNT W/DIF F red cell distribution width 14.3 % 11.8-1 5.5 Not Available [facility] (Lab) [address] [place], [address], 09/21/2024 19:51:16 09/22/19 25 09/21/2024 CBC/C OMPLE TE BLD COUNT W/DIF F platelets 289 x10'3 /uL 150-40 0 Not Available [facility] (Lab) [address] [place], [address], 09/21/2024 19:51:16 09/22/19 25 09/21/2024 CBC/C OMPLE TE BLD COUNT W/DIF F mean platelet volume 11.5 fL 9.0-12 .4 Not Available [facility] (Lab) [address] [place], [address], 09/21/2024 19:51:16 09/22/19 25 09/21/2024 CBC/C OMPLE TE BLD COUNT W/DIF F neutrophils 53.1 % 39.0-7 2.0 Not Available [facility] (Lab) [address] [place], [address], 09/21/2024 19:51:16 09/22/19 25 09/21/2024 CBC/C OMPLE TE BLD COUNT W/DIF F lymphocytes 32.1 % 16.0-4 7.0 Not Available [facility] (Lab) [address] [place], [address], 09/21/2024 19:51:16 09/22/19 25 09/21/2024 CBC/C OMPLE TE BLD COUNT W/DIF F monocytes 7.2 % 5.0-12 .0 Not Available [facility] (Lab) [address] [place], [address], 09/21/2024 19:51:16 09/22/19 25 09/21/2024 CBC/C OMPLE TE BLD COUNT W/DIF F eosinophils 5.7 % 1.0-7. 0 Not Available [facility] (Lab) [address] [place], [address], 09/21/2024 19:51:16 09/22/1909/21/2024 CBC/C OMPLE TE BLD COUNT W/DIF F basophils 1.5 % 0.0-2. 0 Not Available [facility] (Lab) [address] [place], [address], 09/21/2024 19:51:16 09/22/19 25 09/21/2024 CBC/C OMPLE TE BLD COUNT W/DIF F immature granulocytes 0.4 % 0.00-0 .50 Not Available [facility] (Lab) [address] [place], [address], 09/21/2024 19:51:16 09/22/1909/21/2024 CBC/C OMPLE TE BLD COUNT W/DIF F neutrophils, absolute count 2.88 x10'3 /uL 1.5-8. 0 Not Available [facility] (Lab) [address] [place], [address], 09/21/2024 19:51:16 09/22/19 25 09/21/2024 CBC/C OMPLE TE BLD COUNT W/DIF F lymphocytes, absolute count 1.74 x10'3 /uL 1.07-3 .43 Not Available [facility] (Lab) [address] [place], [address], 09/21/2024 19:51:16 09/22/19 25 09/21/2024 CBC/C OMPLE TE BLD COUNT W/DIF F monocytes, absolute count 0.39 x10'3 /uL 0.29-0 .99 Not Available [facility] (Lab) [address] [place], [address], 09/21/2024 19:51:16 09/22/19 25 09/21/2024 CBC/C OMPLE TE BLD COUNT W/DIF F eosinophils, absolute count 0.31 x10'3 /uL 0.02-0 .53 Not Available [facility] (Lab) [address] [place], [address], 09/21/2024 19:51:16 09/22/19 25 09/21/2024 CBC/C OMPLE TE BLD COUNT W/DIF F basophils, absolute count 0.08 x10'3 /uL 0.01-0 .08 Not Available [facility] (Lab) [address] [place], [address], 09/21/2024 19:51:16 09/22/19 25 09/21/2024 CBC/C OMPLE TE BLD COUNT W/DIF F immature granulocytes ,absolute 0.02 x10'3 /uL 0.00-0 .05 Not Available [facility] (Lab) [address] [place], [address], 09/21/2024 19:51:16 09/22/19 25 09/21/2024 CBC/C OMPLE TE BLD COUNT W/DIF F nucleated red blood cells 0.0 % -0 Not Available [facility] (Lab) [address] [place], [address], 09/21/2024 19:51:16 09/22/19 25 09/21/2024 CBC/C OMPLE TE BLD COUNT W/DIF F NRBC# 0.00 x10'3 /uL Not Available [facility] (Lab) [address] [place], [address], 09/21/2024 19:51:16 09/22/19 25 09/21/2024 URIC ACID SERUM uric acid 5.1 mg/dL 2.5-6. 2 Not Available [facility] (Lab) [address] [place], [address], 09/21/2024 20:01:35 09/22/19 25 09/21/2024 COMPR EHENS POOL METAB OLIC PANEL sodium 136 mmol/ L 137-14 5 low Not Available [facility] (Lab) [address] [place], [address], 09/21/2024 20:01:41 09/22/19 25 09/21/2024 COMPR EHENS POOL METAB OLIC PANEL potassium 5.0 mmol/ L 3.5-5. 1 Not Available [facility] (Lab) [address] [place], [address], 09/21/2024 20:01:41 09/22/19 25 09/21/2024 COMPR EHENS POOL METAB OLIC PANEL chloride 100 mmol/ L 98-107 Not Available [facility] (Lab) [address] [place], [address], 09/21/2024 20:01:41 09/22/19 25 09/21/2024 COMPR EHENS POOL METAB OLIC PANEL carbon dioxide 25 mmol/ L 22-30 Not Available [facility] (Lab) [address] [place], [address], 09/21/2024 20:01:41 09/22/19 25 09/21/2024 COMPR EHENS POOL METAB OLIC PANEL anion gap 16.0 mmol/ L 14-22 Not Available [facility] (Lab) [address] [place], [address], 09/21/2024 20:01:41 09/22/19 25 09/21/2024 COMPR EHENS POOL METAB OLIC PANEL glucose 100 mg/dL 70-99 high Not Available [facility] (Lab) [address] [place], [address], 09/21/2024 20:01:41 09/22/19 25 09/21/2024 COMPR EHENS POOL METAB OLIC PANEL BUN 21 mg/dL 8-19 high Not Available [facility] (Lab) [address] [place], [address], 09/21/2024 20:01:41 09/22/19 25 09/21/2024 COMPR EHENS POOL METAB OLIC PANEL creatinine 0.88 mg/dL 0.66-1 .25 Not Available [facility] (Lab) [address] [place], [address], 09/21/2024 20:01:41 09/22/19 25 09/21/2024 COMPR EHENS POOL METAB OLIC PANEL GFR >60 Refer ence Range : Taylor ge GFR Healt hy Adult : >60 [...] or ethni c subgr oups, such as Hisny nics. Outsi de the valid ated madhu [...] s/kdo qi/gf r_cal culat or Not Available [facility] (Lab) [address] [place], [address], 09/21/2024 20:01:41 09/22/19 25 09/21/2024 COMPR EHENS POOL METAB OLIC PANEL alkaline phosphatase 60 U/L 38-126 Not Available [facility] (Lab) [address] [place], [address], 09/21/2024 20:01:41 09/22/19 25 09/21/2024 COMPR EHENS POOL METAB OLIC PANEL alanine aminotransfe rase 41 U/L 0-35 high Not Available [facility] (Lab) [address] [place], [address], 09/21/2024 20:01:41 09/22/19 25 09/21/2024 COMPR EHENS POOL METAB OLIC PANEL aspartate aminotransfe rase 32 U/L 15-37 Not Available [facility] (Lab) [address] [place], [address], 09/21/2024 20:01:41 09/22/19 25 09/21/2024 COMPR EHENS POOL METAB OLIC PANEL bilirubin, total 0.80 mg/dL 0.20-1 .30 Not Available [facility] (Lab) [address] [place], [address], 09/21/2024 20:01:41 09/22/19 25 09/21/2024 COMPR EHENS POOL METAB OLIC PANEL calcium 11.7 mg/dL 8.4-10 .2 high Not Available [facility] (Lab) [address] [place], [address], 09/21/2024 20:01:41 09/22/19 25 09/21/2024 COMPR EHENS POOL METAB OLIC PANEL total protein 7.9 g/dL 6.3-8. 2 Not Available [facility] (Lab) [address] [place], [address], 09/21/2024 20:01:41 09/22/19 25 09/21/2024 COMPR EHENS POOL METAB OLIC PANEL albumin 5.3 g/dL 3.0-4. 4 high Not Available [facility] (Lab) [address] [place], [address], 09/21/2024 20:01:41 09/22/19 25 09/21/2024 COMPR EHENS POOL METAB OLIC PANEL globulin 2.6 g/dL 2.6-4. 2 Not Available [facility] (Lab) [address] [place], [address], 09/21/2024 20:01:41 09/22/19 25 09/21/2024 COMPR EHENS POOL METAB OLIC PANEL A/G ratio 2.0 ratio 1.0-2. 0 Not Available [facility] (Lab) [address] [place], [address], 09/21/2024 20:01:41 09/22/19 25 09/21/2024 LIPID PANEL cholesterol 186 mg/dL 140-19 9 NIH LUPIS NSUS RECOM MENDA TION FOR GENEVIEVE STERO L: ADULT CHILD LOW RISK: <200 <170 BORDE RLINE : <200- 239 ----- HIGH RISK: >240 >200 Not Available [facility] (Lab) [address] [place], [address], 09/21/2024 20:01:46 09/22/19 25 09/21/2024 LIPID PANEL triglyceride s 155 mg/dL 0-150 high NIH LUPIS NSUS REPOR T RECOM MENDA TION FOR TRIGL YCERI BERNA: ADULT CHILD LOW RISK: <150 ----- BODER LINE: 150-1 99 ----- HIGH RISK: >200 ----- Not Available [facility] (Lab) [address] [place], [address], 09/21/2024 20:01:46 09/22/19 25 09/21/2024 LIPID PANEL HDL cholesterol 43 mg/dL 40- Not Available [facility] (Lab) [address] [place], [address], 09/21/2024 20:01:46 09/22/19 25 09/21/2024 LIPID PANEL [...] Available [facility] (Lab) [address] [place], [address], 09/21/2024 20:01:46 09/22/19 25 09/21/2024 PARAT HY.HO RM(PT H)INT ACT-W /O CA intact parathyroid hormone 111.1 pg/mL 24.0-7 8.0 high Not Available [facility] (Lab) [address] [place], [address], 09/21/2024 20:18:23 09/22/19 25 09/21/2024 VITAM IN D 25-HY DROXY vd25oh 48.2 NG/mL 30-100 Vitam in D Statu s: Defic ient: <20 ng/mL Insuf ficie nt: 20-29 ng/mL Suffi cient : 30-10 0 ng/mL Not Available [facility] (Lab) [address] [place], [address], 09/21/2024 20:18:38 09/22/19 25 09/21/2024 HEMOG LOBIN A1C HA1C 5.6 % 4.0-6. 0 Diabe octavio Scree kayden Crite ankit: <5.7% Consi stent with absen ce of diabe octavio 5.7-6 .4% Consi stent with incre ased risk for diabe octavio (pred iabet es) >OR=6 .5% Consi stent with diabe octavio REFER ENCE: Diabe octavio Care 2016, 39(Hernández ppl.1 ):s13 -s22 Not Available [facility] (Lab) [address] [place], [address], 09/21/2024 20:26:48 09/22/19 25 09/21/2024 TSH W/REF FARHEEN FT4 TSH with reflex free T4 1.650 uIU/m L 0.465- 4.680 Not Available [facility] (Lab) [address], [place], [address], 09/21/2024 20:36:14 09/22/19 25 09/21/2024 urina lysis , dipst ick Leukocytes (reference range: negative afshan/ l) Small Not Available [address], [address], 09/21/2024 14:23:19 09/22/19 25 09/21/2024 urina lysis , dipst ick Nitrite (reference rage: negative mg/dl) negati ve Not Available [address], [address], 09/21/2024 14:23:19 09/22/19 25 09/21/2024 urina lysis , dipst ick Urobilinogen (reference range: 0.2-1 mg/dl) 0.2 Not Available [address], [address], 09/21/2024 14:23:19 09/22/19 25 09/21/2024 urina lysis , dipst ick Protein (reference range: negative mg/dl) Negati ve Not Available [address], [address], 09/21/2024 14:23:19 09/22/19 25 09/21/2024 urina lysis , dipst ick pH (reference range: 5-7) 7.0 Not Available [address], [address], 09/21/2024 14:23:19 09/22/19 25 09/21/2024 urina lysis , dipst ick Blood (reference range: negative Cornelio/ l) Negati ve Not Available [address], [address], 09/21/2024 14:23:19 09/22/19 25 09/21/2024 urina lysis , dipst ick Specific [place] (reference range: 1.005-1.030) 1.010 Not Available [address], [address], 09/21/2024 14:23:19 09/22/19 25 09/21/2024 urina lysis , dipst ick Ketone (reference range: negative mg/dl) Negati ve Not Available [address], [address], 09/21/2024 14:23:19 09/22/19 25 09/21/2024 urina lysis , dipst ick Bilirubin (reference range: negative mg/dl) Negati ve Not Available [address], [address], 09/21/2024 14:23:19 09/22/19 25 09/21/2024 urina lysis , dipst ick Glucose (reference range: negative mg/dl) Negati ve Not Available [address], [address], 09/21/2024 14:23:19 09/22/19 25 09/21/2024 urina lysis , dipst ick Appearance Clear Not Available [address], [address], 09/21/2024 14:23:19 09/22/19 25 09/21/2024 urina lysis , dipst ick Color Pale Yellow Not Available [address], [address], 09/21/2024 14:23:19 02/09/20 25 02/08/2025 urina lysis , dipst ick Leukocytes (reference range: negative afshan/ l) Small Not Available [address], [address], 02/08/2025 09:54:36 02/09/2002/08/2025 urina lysis , dipst ick Nitrite (reference rage: negative mg/dl) positi ve Not Available [address], [address], 02/08/2025 09:54:36 02/09/2002/08/2025 urina lysis , dipst ick Urobilinogen (reference range: 0.2-1 mg/dl) 0.2 Not Available [address], [address], 02/08/2025 09:54:36 02/09/2002/08/2025 urina lysis , dipst ick Protein (reference range: negative mg/dl) Negati ve Not Available [address], [address], 02/08/2025 09:54:36 02/09/2002/08/2025 urina lysis , dipst ick pH (reference range: 5-7) 7.5 Not Available [address], [address], 02/08/2025 09:54:36 02/09/20 25 02/08/2025 urina lysis , dipst ick Blood (reference range: negative Cornelio/ l) Negati ve Not Available [address], [address], 02/08/2025 09:54:36 02/09/20 25 02/08/2025 urina lysis , dipst ick Specific [place] (reference range: 1.005-1.030) 1.020 Not Available [address], [address], 02/08/2025 09:54:36 02/09/2002/08/2025 urina lysis , dipst ick Ketone (reference range: negative mg/dl) Negati ve Not Available [address], [address], 02/08/2025 09:54:36 02/09/2002/08/2025 urina lysis , dipst ick Bilirubin (reference range: negative mg/dl) Negati ve Not Available [address], [address], 02/08/2025 09:54:36 02/09/2002/08/2025 urina lysis , dipst ick Glucose (reference range: negative mg/dl) Negati ve Not Available [address], [address], 02/08/2025 09:54:36 02/09/2002/08/2025 urina lysis , dipst ick Appearance Clear Not Available [address], [address], 02/08/2025 09:54:36 02/09/2002/08/2025 urina lysis , dipst ick Color Yellow Not Available [facility] [address] [facility], [place], [address], 02/08/2025 09:54:36 09/17/19 25 09/16/2024 NM, kidne y scan, w/ vascu lar flow + funct ion, singl e, w/o pharm a inter venti on No observ ation record ed. [address] [address], [place], [address], 09/21/2024 14:09:22 10/26/19 25 10/25/2024 XR, kidne y + urete r + bladd er No observ ation record ed. [address] [address], [place], [address], 02/08/2025 10:01:47 11/03/19 25 11/02/2024 XR, kidne y + urete r + bladd er No observ ation record ed. [address] [address], [place], [address], 02/08/2025 10:01:46 12/03/19 25 12/01/2024 XR, kidne y + urete r + bladd er No observ ation record ed. [address] [address], [place], [address], 02/08/2025 10:01:46 12/22/19 25 12/14/2024 CT, abdom en + pelvi s, w/o contr ast No observ ation record ed. [address] [address], [place], [address], 02/08/2025 10:01:46 03/26/20 25 03/26/2025 CT, abdom en + pelvi s, w/o contr ast No observ ation record ed. [address] [address], [place], [address], 03/27/2025 09:18:03 Result Notes None recorded. Problems Name Problem SNOMED Code Status Onset Date Resolution Date Notes Provider Name and Address Organization Details Recorded Time Anthony hematuria 129432486 Completed Not Available [facility] 3 07:31:20 Headache 60017466 Completed Daly Pinto NP [address], [address], [place], [address] , [employer] 3 12:00:58 Retinal disorder 93209786 Active Not Available [facility] 3 07:31:20 Depressiv e disorder 37073364 Active Not Available [facility] 3 07:31:21 Hematoma 952380771 Completed Not Available [facility] 3 07:31:21 Furuncle 922332900 Completed Michael Faye MD [address] [facility], [address], [place], [address] , [facility] 4 10:18:43 Foot pain 81309716 Completed Not Available [facility] 3 07:31:22 Anxiety 63656310 Active Not Available [facility] 3 07:31:22 Upper respirato ry infection 12755752 Completed Not Available [facility] 3 07:31:22 Urinary tract infectiou s disease 40260159 Completed Michael Faye MD [address], [address] [address], [place], [address] , [facility] 4 16:13:03 Sleep apnea 77460024 Active Not Available [facility] 3 07:31:24 Urgent desire to urinate 58446193 Completed Not Available [facility] 3 07:31:24 Skin lesion 19549494 Completed Not Available [facility] 3 07:31:25 Kidney stone 48991663 Completed Not Available [facility] 3 07:31:25 Osteoarth ritis of knee 424973430 Active 2016 Not Available [facility] 3 07:31:20 Environme ntal allergy 084408203 Active 2016 Not Available [facility] 3 07:31:21 Migraine without aura 87837288 Active 2016 Not Available [facility] 3 07:31:22 Varicose veins of lower extremity 57285344 Active 2016 Not Available [facility] 3 07:31:23 Hyperlipi demia 67224610 Active 2016 Not Available [facility] 3 07:31:22 Hyperglyc emia 93923707 Active 2016 Not Available [facility] 3 07:31:24 Sinusitis 82342649 Active 2017 Not Available [facility] 3 07:31:21 Acid reflux 081137449 Active 2018 Not Available [facility] 3 07:31:23 Gastroeso phageal reflux disease 893432922 Active 2019 Not Available [facility] 3 07:31:20 Seasonal allergic rhinitis 416898629 Active 2019 Not Available [facility] 3 07:31:21 Hypertens pool disorder 05107510 Active 2019 Not Available [facility] 3 07:31:21 Bilateral tinnitus 90842487737 02 Active 2019 Not Available [facility] 3 07:31:22 Hypertrig lyceridem ia 746019245 Active 2020 Not Available [facility] 3 07:31:21 Memory impairmen t 035830597 Active 2020 Not Available [facility] 3 07:31:21 Liver enzymes level above reference range 286396505 Active 2020 Not Available [facility] 3 07:31:23 Acute sinusitis 68175466 Active 2020 Not Available [facility] 3 07:31:19 History of thyroid disorder 472450451 Active 2020 Not Available [facility] 3 07:31:20 Postmenop ausal state 54546811 Active 2021 Not Available [facility] 3 07:31:24 Low back pain 906131164 Active 2021 Not Available [facility] 3 07:31:20 Gout 81145544 Active 2021 Not Available [facility] 3 07:31:24 Osteoporo sis 33865816 Active 2021 Not Available [facility] 3 07:31:23 Sciatica 55459672 Active 2021 Not Available [facility] 3 07:31:20 Mixed anxiety and depressiv e disorder 542292698 Active 2021 Not Available [facility] 3 07:31:20 Lumbar spondylos is 800499506 Active 2021 Not Available [facility] 3 07:31:20 Herniatio n of lumbar intervert ebral disc with sciatica 63738251012 4105 Active 2021 Not Available [facility] 3 07:31:22 Obese 028846664 Active 2022 Daly Pinto NP [address], [address], [place], [address] , [employer] [facility] [employer] 3 11:56:43 Headache 71901971 Active 2022 Daly Pinto NP [address], [address], [place], [address] , [place] [facility] 3 12:00:58 Lumbar radiculop athy 171251107 Active 2022 Michael Faye MD [address], [address], [place], [address] , [place] [facility] 3 17:01:57 Obesity 710326233 Active 2022 Michael Faye MD [address], [address], [place], [address] , [place] [facility] 3 17:02:46 Lipoma of lower leg 600239507 Active 2022 Michael Faye MD [address], [address], [place], [address] , [place] [facility] 3 17:43:42 Idiopathi c hypercalc emia 575344134 Active 2022 Michael Faye MD [address], [address], [place], [address] , [place] [facility] 3 14:31:47 Hyperpara thyroidis m 99054574 Active 2022 Michael Faye MD [address], [address], [place], [address] , [place] [facility] 5 10:26:42 Blood in urine 42897034 Active 2022 Daly Pinto NP [address], [address], [place], [address] , [place] [facility] 3 10:44:02 Abnormal uterine bleeding 98470362406 100 Active 2022 Daly Pinto NP [address], [address], [place], [address] , [place] [facility] 3 10:44:49 Acute urinary tract infection 365927759 Active 2022 Daly Pinto NP [address], [address], [place], [address] , [place] [facility] 3 08:51:54 Dysuria 12365800 Active 2022 Michael Faye MD [address], [address], [place], [address] , [place] [facility] 5 14:23:11 Urinary tract infectiou s disease 31709506 Active 2023 Michael Faye MD [address], [address], [place], [address] , [place] [facility] 4 16:13:03 Bilateral earache 019559505 Active 2023 Michael Faye MD [address], [address], [place], [address] , [place] [facility] 4 16:33:22 Candidal vulvovagi nitis 52680119 Active 2023 Michael Faye MD [address], [address], [place], [address] , [place] [facility] 4 16:37:42 Gouty arthropat hy 329095970 Active 2023 Michael Faye MD [address], [address], [place], [address] , [place] [facility] 4 09:56:46 Polyarthr opathy 84088678 Active 2023 Michael Faye MD [address], [address], [place], [address] , [place] [facility] 4 09:58:59 Obstructi ve sleep apnea syndrome 29619430 Active 2023 Michael Faye MD [address], [address], [place], [address] , [place] [facility] 4 10:07:57 Pain of right knee joint 72164929342 4100 Active 2023 LILLY Beltran [address], [address], [place], [address] , [place] [facility] 4 14:54:22 Hypercalc emia 44001527 Active 2023 LILLY Beltran [address], [address], [place], [address] , [place] [facility] 4 14:58:37 Cough 99356652 Active 2024 Michael Faye MD [address], [address], [place], [address] , [place] [facility] 5 14:35:26 Bronchiti s 26792022 Active 2024 Michael Faye MD [address], [address], [place], [address] , [facility] 14:57:50 Muscle strain 99158979 Active 2024 Michael Faye MD [address], [address], [place], [address] , [employer] 15:14:02 Problem Notes None recorded. Procedures Surgical History Date Name Laterality Status Provider Name and Address Organization Details Recorded Time 10/27/19 24 Date of Last Pap Smear completed Michael Faye MD [address], [address], [place], [address], [facility] 09/21/2024 14:27:51 09/29/19 24 Medicare Wellness CPT Code, subsequent completed Reji Ashton [facility] 09/29/2023 14:15:26 08/29/19 24 Most Recent Mammogram completed Michael Faye MD [address], [address], [place], [address], [facility] 09/21/2024 14:27:51 06/18/19 24 Transitional_Care_ Management completed Reji [facility] [employer] 06/18/2023 16:22:09 04/03/20 22 Most Recent Bone Density completed Not Available [facility] 07/23/2022 07:26:53 05/25/19 18 Knee Replacement completed Not Available [facility] 07/23/2022 07:26:55 05/25/19 02 repair of ovary completed Not Available [facility] 07/23/2022 07:26:55 05/25/18 92 Cholecystectomy completed Not Available [facility] 07/23/2022 07:26:55 Imaging Results None recorded. Procedure Notes None recorded. Medical Equipment None Reported. Allergies Allergen ID Allergen Name Allergen Category Reaction Reaction Severity Criticality Documentation Date Start Date Code Code System Note Provider Name and Address Organization Details Recorded Time 78545 Substance with sulfonami de structure and antibacte rial mechanism of action (substanc e) medicatio n nausea Not available Not available 07/23/2022 56557 8003 SNOMED Not Available [facility] 07:36:13 46990 Zithromax medicatio n other Not available Not available 03/31/2024 4 RxNorm cause s pt to be super jitte ry Michael Faye MD [address] [facility], [facility] [address], [place], [address], [facility] 5 14:58:29 17905 Macrobid medicatio n anaphylax is severe high 06/16/20242024 54903 1 RxNorm state s her throa t close d up with in the hour of leyda dove it, had to go to ER Yara scanlon, [facility] 5 09:32:31 Medications Name Sig Start Date [...] Not Available Not Available Not Available Afluria 2709-7591 (PF) 45 mcg (15 mcg x 3)/0.5 [...] % 160/84 mm[Hg] Michael Faye MD [address], [facility] [address], [place], [address], [facility] [employer] 07/21/2024 12:20:50 Date Recorded Body height Body mass index (BMI) Body weight Body temperature Heart rate Respiratory rate Pain severity - 0-10 verbal numeric rating [Score] - Reported Provider Name and Address Organization Details Last Updated DateTime 5 160.02 cm 41.7 kg/m2 665864. 91 g 97.5 [degF] 74 /min 20 /min 1 Daly Monte RN [facility] [employer] 11:47:05 Date Recorded Body height Body mass index (BMI) Body weight Body temperature Oxygen saturation Oxygen saturation in Arterial blood by Pulse oximetry Heart rate Systolic And Diastolic Provider Name and Address Organization Details Last Updated DateTime 5 160.02 cm 41.4 kg/m2 410384. 82 g 98.2 [degF] 96 % 96 % 72 /min 120/70 mm[Hg] Nely Xiao RN [facility] [employer] 14:53:14 Date Recorded Body height Body mass index (BMI) Body weight Body temperature Oxygen saturation Oxygen saturation in Arterial blood by Pulse oximetry Heart rate Systolic And Diastolic Provider Name and Address Organization Details Last Updated DateTime 5 160.02 cm 40.6 kg/m2 172774. 05 g 98.1 [degF] 97 % 97 % 81 /min 142/70 mm[Hg] Nely Xiao RN [facility] [employer] 5 14:07:59 Date Recorded Body height Body mass index (BMI) Body weight Body temperature Oxygen saturation Oxygen saturation in Arterial blood by Pulse oximetry Heart rate Systolic And Diastolic Provider Name and Address Organization Details Last Updated DateTime 5 160.02 cm 41 kg/m2 354768. 89 g 97.7 [degF] 98 % 98 % 76 /min 140/64 mm[Hg] Nely Xiao RN [facility] 5 10:19:26 Date Recorded Body height Body mass index (BMI) Body weight Body temperature Oxygen saturation Oxygen saturation in Arterial blood by Pulse oximetry Heart rate Systolic And Diastolic Provider Name and Address Organization Details Last Updated DateTime 160.02 cm 40.6 kg/m2 736070. 35 g 98.6 [degF] 97 % 97 % 68 /min 146/66 mm[Hg] Nely Xiao RN [facility] 5 10:00:41 Social History Question Answer Notes LastModified by Organizat ion Details LastModified Time Tobacco Smoking Status Never Smoker Elida scanlon [facility] 06/18/2023 16:10:12 Do You Have An Advance Directive? Yes [id number] Information not available 07/23/2022 Are You Blind Or Do You Have Difficulty Seeing? No Information not available 06/18/2023 Is Blood Transfusion Acceptable In An Emergency? Yes Information not available 06/18/2023 What Is Your Level Of Caffeine Consumption? Moderate [id number] Information not available 07/23/2022 How Much Tobacco Do You Chew? None [id number] Information not available 07/23/2022 What Is Your [...] Type Of Diet Are You Following? GLUTENFREE [email or web address] Information not available 12/30/2023 Which Illicit Or Recreational Drugs Have You Used? None Information not available 06/18/2023 What Is The Highest Grade Or Level Of School You Have Completed Or The Highest Degree You Have Received? [id number] Information not available 06/18/2023 How Many Days [...] Do You Have A Medical Power Of Bell Maker? No Information not available 06/18/2023 What [...] Functional Status Question Answer Note LastModified by [employer] Details LastModified Time What is your level of alcohol consumption? None [id number] Information not available 07/23/2022 Are you currently [...] 06/18/2023 What is your exercise level? Moderate [email or web address] Information not available 12/30/2023 Mental Status Question Answer Note LastModified by [employer] Details LastModified Time Do you feel stressed (tense, restless, nervous, or anxious, or unable to sleep at night)? [id number] Information not available 11/09/2023 Do you have difficulty concentrating, remembering or making decisions? No Information no t available 06/18/2023 Family History Relationship Description Onset Age of this Age Resolved Age Notes LastModified by Organization Details LastModified Time Father No current problems or disability [id number] Not available 07/23/2022 07:26:58 Mother No current problems or disability [id number] Not available 07/23/2022 07:26:58 Medical History Condition [...] virus, quadrivalent, preservative 8 completed Not Available [facility] 07/23/2022 07:36:04 Influenza, split virus, trivalent, preservative 5 completed Not Available [facility] 07/23/2022 07:36:04 zoster live 5 completed Not Available [facility] 07/23/2022 07:36:04 Influenza, split virus, trivalent, PF 4 completed Not Available [facility] 07/23/2022 07:36:04 Pneumococcal conjugate PCV 13 0 completed Not Available [facility] 07/23/2022 07:36:05 Influenza, high-dose, quadrivalent, PF 0 completed Not Available [facility] 07/23/2022 07:36:05 Tdap 8 completed Not Available [facility] 07/23/2022 07:36:05 Influenza, split virus, quadrivalent, PF 6 completed Not Available [facility] 07/23/2022 07:36:05 Past Encounters Encounter ID Performer Location Encounter Start Date Encounter Closed Date Diagnosis/Indication Diagnosis SNOMED-CT Code Diagnosis ICD10 Code Diagnosis IMO Codes Diagnosis Note [id number] Daly Pinto NP [facility] [address] [place] [address] 07/24/2020 00:00:00 07/24/2020 09:44:41 [id number] Michael Faye MD [facility] [address] [place] [address] 10/31/2020 00:00:00 10/31/2020 09:16:25 [id number] Michael Faye MD [facility] [address] [place] [address] 11/20/2020 00:00:00 11/20/2020 12:21:01 [id number] Michael Faye MD [facility] [address] [place] [address] 02/13/2021 00:00:00 02/13/2021 14:33:22 [id number] Michael Faye MD [facility] [address] [place], [place] [address] 02/26/2021 00:00:00 02/26/2021 14:32:03 [id number] Michael Faye MD [facility] [place] [address] [place] [address] 1 07/24/2021 00:00:00 07/24/2021 14:56:44 [id number] Faye MD [facility] [place] [address] [place] [address] 1 10/09/2021 00:00:00 10/09/2021 14:38:30 [id number] Daly Pinto NP [facility] [place] [address] [place] [address] 1 02/26/2022 00:00:00 02/26/2022 10:42:26 [id number] Michael Faye MD [address] [address] 1 03/18/2022 00:00:00 03/19/2022 15:55:39 [id number] Michael Faye MD [address] [address] 1 04/29/2022 00:00:00 04/29/2022 18:09:05 [id number] Michael Faye MD [address] [address] 1 05/06/2022 00:00:00 05/06/2022 15:25:01 [id number] Daly Pinto NP [address] [address] 1 08/06/2022 11:17:09 08/06/2022 12:50:33 Hyperlipidemia 86266771 E78.5 Low fat diet. Statins cause pain. 02/27/22 last lab result. Essential hypertension 51928236 I10 amlodipine 5 mg po daily.ASA 81 mg po dailyLosar puckett 100 mg po daily.tria mterene 37.5 mg-hctz25 mg po daily. (this can increase gout flare, so stopped and started on losartan only) Osteoporosis 81316818 M8 1.0 alendronat e 70 mg po weekly pt stopped. Wants to follow Dr. Sims holistic provider and be on vitamins.M eloxicam 15 mg po daily.Tram adol 50 mg po tid prn- pt trying to wean off. Acid reflux 409366546 K2 1.9 famotidine 20 mg po daily. Sleep apnea 82243632 G47 .30 Gout 93583153 M10.9 allopurino l 100 mg po daily. Seasonal a llergic rhinitis 415922820 J30.2 cetirizine 10 mg po daily.Flon ase prn Mixed anxi ety and depressive disorder 658134299 F41.8 Pt weaned herself off the lexapro. Hydroxyzin e prn use. Sciatica 29554803 M54.32 cyclobenza shalini 10 mg po tid prn.Gabape ntin 300 mg po nightly. Obese 980536476 E66.9 Diet and exercise. Wegovy and phentermin e discussed. Phentermin e 15 mg po daily. Headache 47948672 R51.9 [id number] Michael Faye MD [address] [address] 08/07/2022 16:38:36 08/07/2022 17:44:28 Cramp in lower limb 913079931 R25.2 B/L Lumbar radiculopathy 128 618619 M54.16 Gout 49368688 M10.9 Obesity 652491477 E66.9 Lipoma of lower leg 1890 98229 D17.24 Lt [id number] Daly Pinto NP [address] [address] 1 09/09/2022 09:34:15 09/09/2022 10:58:16 Blood in urine 05763502 R31.9 Sending urine for culture. Blood with wiping- no periods for 15 years. Abnormal u terine bleeding 9955585359 9100 N93.9 referring to [facility]- pt to find provider that accepts insurance. Obese 104794957 E66.9 Diet and exercise. Phentermin e 15 mg po daily. Down 2 lbs. Would like to continue. [id number] Daly Pinto NP [address] [address] 1 10/09/2022 09:13:04 10/09/2022 10:05:37 Obese 193300026 E66.9 Diet and exercise. Phentermin e 15 mg po daily. Down 2 lbs. Would like to continue.I LPMP last fill 09/09/22.Ph entermine 37.5 mg po daily. Essential hypertension 71121857 I10 amlodipine 5 mg po daily.ASA 81 mg po dailyLosar puckett 100 mg po daily.tria mterene 37.5 mg-hctz25 mg po daily. (this can increase gout flare, so stopped and started on losartan only) Gastroesop hageal reflux disease 283884138 K21.9 [id number] Daly Pinto NP [address] [address] 1 10/24/2022 10:41:24 10/24/2022 11:44:26 Dysuria 38025396 R30.0 R30.9 Patient was started on antibiotic and advised to increase water intake.Cul ture sent.Urina lysis in office +nitrites [id number] Daly Pinto NP [address] [address] 1 01/21/2023 13:58:46 01/21/2023 18:03:00 Gout 55549458 M10.9 allopurino l 200 mg po daily. Seeing Dr. Becerra. Sleep apnea 85337402 G47 .30 CPAP Acid reflux 801208803 K2 1.9 famotidine 20 mg po daily. Hyperparathyroidism 6699 9008 E21.3 referred to endo, but patient cancelled. Osteoporosis 49936689 M8 1.0 alendronat e 70 mg po weekly pt stopped. Wants to follow Dr. Sims holistic provider and be on vitamins.M eloxicam 15 mg po daily.Tram adol 50 mg po tid prn- pt trying to wean off. Not able to yet- trying to lose weight. Essential hypertension 24088664 I10 amlodipine 5 mg po daily.ASA 81 mg po dailyLosar puckett 100 mg po daily.tria mterene 37.5 mg-hctz25 mg po daily. (this can increase gout flare, so pt monitoring ) Migraine without aura 56 052039 G43.009 Hyperlipidemia 52199277 E78.5 Low fat diet. Statins cause pain. 02/27/22 last lab result. Anxiety 70131889 F41.9 Obese 609883224 E66.9 Diet and exercise. Lumbar spondylosis 95183 0009 M47.896 Osteoarthr itis of knee 867593891 M17.9 [id number] Michael Faye MD [address] [address] 1 06/18/2023 16:09:07 06/18/2023 17:00:32 Seen in emergency clinic 058734695 Z76.89 Recent ED records reviewed. Urinary tr act infectious disease 33805608 N39.0 Transition of care 58626 31840 105 Z75.8 Sinusitis 67423708 J32.9 Bilateral earache 295095 003 H92.03 Candidal vulvovaginitis 43945758 B37.31 Essential hypertension 72097619 I10 Gout 37396421 M10.9 Obesity 683728371 E66.9 [id number] Michael Faye MD [address] [address] 1 09/02/2023 09:43:47 09/02/2023 10:22:40 Hypertensive disorder 62096498 I10 Gouty arthropathy 588028 008 M10.09 Gynecologi c examination 20892754 Z01.419 Depressive disorder 3548 9007 F32.A Polyarthropathy 15064019 M13.0 Obesity 704688527 E66.9 Osteoporosis 35172817 M8 1.0 Screening mammography 24 158612 Z12.31 Screening for malignant neoplasm of colon 758401253 Z12.11 Urinary tr act infectious disease 95568262 N39.0 Obstructiv e sleep apnea syndrome 08546126 G47.33 [id number] Michael Faye MD [address] [address] 1 09/29/2023 14:13:02 09/29/2023 15:00:22 Hypertensive disorder 95043730 I10 Gouty arthropathy 565755 008 M10.09 Depressive disorder 3548 9007 F32.A Polyarthropathy 77608386 M13.0 Obesity 239595119 E66.9 Osteoporosis 03365049 M8 1.0 Obstructiv e sleep apnea syndrome 55826079 G47.33 Adult heal th examination 366449140 Z00.00 Screening for disorder 044455014 Z13.9 Hyperlipidemia 47540997 E78.5 Liver enzy mes level above reference range 202677653 R74.01 Idiopathic hypercalcemia 220329094 E83.52 Essential hypertension 71123571 I10 [id number] Michael Faye MD [address] [address] 1 11/09/2023 14:20:26 11/09/2023 15:06:36 Pain of right knee joint 1410975104 57676 M25.561 Hypercalcemia 23553500 E 83.52 [id number] Michael Faye MD [address] [address] 1 12/22/2023 09:14:13 12/22/2023 09:30:39 [id number] Michael Faye MD [address] [address] 1 12/30/2023 09:42:46 12/30/2023 10:33:19 Hypertensive disorder 95064117 I10 Gouty arthropathy 841128 008 M10.09 Depressive disorder 3548 9007 F32.A 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 Obesity 071285037 E66.9 Osteoporosis 03407904 M8 1.0 Obstructiv e sleep apnea syndrome 53932672 G47.33 Hyperlipidemia 05904555 E78.5 Liver enzy mes level above reference range 226840223 R74.01 Idiopathic hypercalcemia 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 E83.52 Osteoarthr itis of knee 608159791 M17.9 [id number] Michael Faye MD [address] [address] 1 03/31/2024 09:38:14 03/31/2024 10:14:55 Idiopathic hypercalcemia 886005320 E83.52 Gouty arthropathy 061880 008 M10.09 Hypertensive disorder 38 994189 I10 Depressive disorder 3548 9007 F32.A Polyarthropathy 40051587 M13.0 Obesity 221966817 E66.9 Osteoporosis 65643065 M8 1.0 Obstructiv e sleep apnea syndrome 71376496 G47.33 Hyperlipidemia 13735643 E78.5 Liver enzy mes level above reference range 283210336 R74.01 Osteoarthr itis of knee 551035333 M17.9 [id number] Michael Faye MD [address] [address] 1 06/15/2024 10:16:28 06/15/2024 10:56:03 Acute urinary tract infection 098593833 N39.0 hx of sepsis related to UTI [id number] Michael Faye MD [address] [address] 1 07/21/2024 11:36:24 07/21/2024 12:34:55 Gouty arthropathy 610873904 M10.09 Idiopathic hypercalcemia 803000007 E83.52 Hypertensive disorder 38 756450 I10 Depressive disorder 3548 9007 F32.A Polyarthropathy 81532281 M13.0 Obesity 137687554 E66.9 Osteoporosis 34005895 M8 1.0 Obstructiv e sleep apnea syndrome 16023968 G47.33 Hyperlipidemia 71035293 E78.5 Liver enzy mes level above reference range 436623633 R74.01 Osteoarthr itis of knee 233572282 M17.9 Blood in urine 31787438 R31.9 Dysuria 56915761 R30.0 [id number] Michael Faye MD [address] [address] 1 08/17/2024 14:29:59 08/17/2024 15:04:55 Cough 05369367 R05.9 Bronchitis 12476344 J40 Muscle strain 36945865 T 14.8XXA [id number] Michael Faye MD [address] [address] 1 09/21/2024 13:53:04 09/21/2024 14:42:12 Gouty arthropathy 517443556 M10.09 Idiopathic hypercalcemia 282131146 E83.52 Hypertensive disorder 38 473098 I10 Depressive disorder 3548 9007 F32.A Polyarthropathy 06926396 M13.0 Obesity 949731757 E66.9 Osteoporosis 45357505 M8 1.0 Obstructiv e sleep apnea syndrome 39808583 G47.33 Hyperlipidemia 45279648 E78.5 Liver enzy mes level above reference range 845557316 R74.01 Osteoarthr itis of knee 916225149 M17.9 Dysuria 27454748 R30.0 82394 [id number] Michael Faye MD [address] [address] 1 10/05/2024 10:11:13 10/05/2024 10:36:25 Hypertensive disorder 32315981 I10 Gouty arthropathy 536769 008 M10.09 Idiopathic hypercalcemia 580089099 E83.52 Depressive disorder 3548 9007 F32.A Polyarthropathy 33892495 M13.0 Obesity 577628810 E66.9 Osteoporosis 44227787 M8 1.0 Obstructiv e sleep apnea syndrome 18169527 G47.33 Hyperlipidemia 50769832 E78.5 Liver enzy mes level above reference range 626068056 R74.01 resolved Osteoarthr itis of knee 765524439 M17.9 Hyperparathyroidism 6699 9008 E21.3 55193 [id number] Michael Faye MD [address] [address] 1 02/08/2025 09:32:11 02/08/2025 10:09:42 Gouty arthropathy 119980629 M10.09 Hypertensive disorder 38 213464 I10 Idiopathic hypercalcemia 722247952 E83.52 Depressive disorder 3548 9007 F32.A Polyarthropathy 25445626 M13.0 Obesity 541152883 E66.9 Osteoporosis 42370532 M8 1.0 Obstructiv e sleep apnea syndrome 15697321 G47.33 Hyperlipidemia 91290653 E78.5 Liver enzy mes level above reference range 004046610 R74.01 resolved Osteoarthr itis of knee 233979335 M17.9 Hyperparathyroidism 6699 9008 E21.3 45617 Dysuria 86017830 R30.0 23586 Health Concerns Section Related Observation LastModified by Organization Detai ls LastModified Time None Recorded Concern Status LastModified by Organization Details LastModified Time None Recorded Advance Directives Directive Y: Payers Insurance Date Sequence Insurance Name Policy Number Policy Dunham Covered Member ID Dunham Member ID Guarantor Name 02/05/2025 1 [facility] (MEDICARE REPLACEMENT/A DVANTAGE - HMO) [id number] Rody Monson [id number] Rody J Ermias Notes Date Note Type Note Provider [...] Michael Faye MD [address], [address], [place], [address], [employer] 07/21/2024 14:54:26 08/17/2024 text/html ACV: C/o cough, congestion, drainage for last 3 weeks, on/off. Pt has been doing otc meds and its still not getting better. Due to cough, she is c/o middle back area pain too. Denies any recent fall/trauma. Michael Faye MD [address], [address], [place], [address], [employer] 08/17/2024 15:14:28 09/21/2024 text/html Pt is here for her annual exam. Doing overall better. Denies any problem with meds. Denies any new concern. Still has lot of urinary issues and she called yesterday to be started on Amoxicillin for it. Pt is f/u with Uro at [place] for her recurrent UTIs and kidney stones [...] supplements by them. Michael Faye MD [address] [facility], [facility] [address], [place], [address], [facility] 09/21/2024 14:29:00 10/05/2024 text/html Pt is here for f/u on her annual labs. Doing overall better. Denies any problem with meds. Denies any new concern. Pt is f/u with Uro at [place] for her recurrent UTIs and kidney stones [...] supplements by them. Michael Faye MD [address] [facility], [facility] [address], [place], [address], [facility] [facility] [employer] 10/05/2024 10:32:33 02/08/2025 text/html FUV + ACV: [...] yet. Pt is f/u with Uro at [place] for her recurrent UTIs and kidney stones [...] supplements by them. Michael Faye MD [address] [facility], [facility] [address], [place], [address], [place] [facility] 02/08/2025 10:30:07 OBGyn Episode No OBEpisode recorded.
--- OUTSIDE RECORDS SUMMARY | 2025-03-30 20:19 | XMS_ITS | Clinical Summary ---
Author Organization [facility] Address [address] [place] [address] Care Team Providers Care Inspector Mechanical Name Role Phone Fabiola Melo MD Unavailable [phone] Brittany Elias MD Primary Care Provider Source Comments [facility],non-owned Affiliates and Associated Physician Practices is amultiple site organization consisting of ambulatory clinics and hospital sitesin [place], [place], [place] and [place]. This disclosure is being madepursuant to the Care Everywhere program and may not contain all information available regarding this patient. Last updated 18.[facility] [employer] Allergies Active Allergy Reactions Criticality Noted Date [...] fluticasone propionate (FLONASE) 50 MCG/ACT nasal spray [place] 2 sprays into each nostril nightly as [...] on file Legal Sex Female 12:16 PM [facility] Gender Identity Not on file Sexual Orientation [...] this topic Medical Devices Implanted Type Area Finish Machine Tender Device Identifier Shelf Expiration Date Model / Serial / Lot Cmnt Bone Cblt 40gm Hvisc Strl Implanted:Qty: 1 on 02/11/2018 by Toño Jhonston MD at [facility] Left: Knee [employer] 02/21/2019 600-15-000 / / [id number] Cmpnt Ptlr 28mm 1 Pg Wire Ascnt Arcm Kn Implanted:Qty: 1 on 02/11/2018 by Toño Johnston MD at [facility] Left: Knee [employer] 01/29/2023 [id number] / / [id number] Tray Tib 71mm Kn Cocr I Beam Implanted:Qty: 1 on 02/11/2018 by Toño Johnston MD at [facility] Left: Knee [employer] 12/02/2027 [id number] / / [id number] Cmpnt Fem Kn Lt Cr Cmnt Prm Vngrd Intlk Implanted:Qty: 1 on 02/11/2018 by Toño Johnston MD at [facility] Left: Knee [employer] 10/21/2027 [id number] / / [id number] Brng [id number] Vngrd Arcm Kn Ant Stab Implanted:Qty: 1 on 02/11/2018 by Toño Johnston MD at [facility] Left: Knee [employer] 12/22/2022 [id number] / / [id number] Procedures Procedure Name Priority Date/Time Associated Diagnosis [...] LAB - CHEMISTRY ORDERABLES Fi nal Result [facility] [address] [place] [address] from Last 3 Months or Most Recently Relevant to Health Maintenance Insurance [facility] MANAGED MEDICARE ADV SELF PAY NO INSURANCE Member Subscriber Plan / Payer (Ef fective for All Dates) Name:Jacob Mosnon Member ID:Not on file Relation to Subscriber:Not on file Name:JACOB MONSON Subscriber ID:Not on file (Home) Address: [address] [place] [address] Payer ID:Not on file Group ID:Not on file Type:Self Pay Address: [place], [place] Advance Directives * Full Code (Latest Code Status on File) Date Activated Date Inactivated Comments 02/11/2018 11:11 AM 02/14/2018 1:10 PM Care Teams Inspector Mechanical Relationship Specialty Start Date End Date Brittany Elias MD [address] [place] [address] PCP - General 05/26/19 [place] [address] [facility] [address] [place] [address] Orthopedic Surgery 06/06/14
--- OUTSIDE RECORDS SUMMARY | 2025-03-30 20:20 | XMS_ITS | Clinical Summary ---
Author Organization [facility] Address [address] [place] [address] Phone Care Team Providers Care Compliance Clerk Name Role Phone Daly Pinto METER TESTER PRIMARY, PENSION ADMINISTRATOR Primary Care Pro vider Medications Aspirin 81 [...] Comments Blood Pressure 130/86 04/08/2019 8:56 AM DIRECTOR GAME Pulse 70 04/08/2019 8:56 AM DIRECTOR GAME Temperature - - Respiratory Rate - - Oxygen Saturation 98% 04/08/2019 8:56 AM DIRECTOR GAME Inhaled Oxygen Concentration - - Weight 108 kg (238 lb) 04/08/2019 8:56 AM DIRECTOR GAME Height 160 cm (5' 3) 04/08/2019 8:56 AM DIRECTOR GAME Body Mass Index 42.16 04/08/2019 8:56 AM DIRECTOR GAME Plan of Treatment Health Maintenance Due Date [...] Recently Relevant to Health Maintenance Insurance [facility] Care Teams Compliance Clerk Relationship Specialty Start Date End Date Daly Pinto APRN, PENSION ADMINISTRATOR [address] [place] [address] PCP - General Certified Nurse Practitioner 11/02/18
== END 2025-03-30 13:54 | disposition home or self-care (01) ==
PROVIDERS: PCP Family Medicine; Visit Provider Urology
DX: N20.9 Urinary calculus, unspecified (principal); Z96.0 Presence of urogenital implants
CPT/HCPCS: 74018

== ENCOUNTER 2025-03-31 09:32 | Outpatient (CLI) | payer MEDICARE, SELFPAY ==
--- NOTE | ~2025-03-31 | CT_ITS ---
CT ABDOMEN AND PELVIS WITHOUT CONTRAST Clinical History: Calcium kidney stone, CHECK STENT PLACEMENT Comparison: 03/26/2025 Technique: Unenhanced axial images lung bases to symphysis pubis Coronal, sagittal reformats CT images acquired with automatic exposure control for dose reduction DLP: 1212 mGy-cm Findings: Without intravenous contrast, sensitivity for detecting visceral parenchymal abnormalities decreased. Lung bases: Clear. Visualized heart and pericardium: Unremarkable. Liver: Enlarged. Steatosis. Early cirrhosis. Gallbladder: Removed. Spleen: Unremarkable. Pancreas: Unremarkable. Adrenal glands: Unremarkable. Kidneys: Right kidney- No hydronephrosis. No renal stones. Left kidney- double-J ureteral stent. Improving but persistent hydronephrosis. Small lower pole stone. Distal esophagus/stomach: Small hiatal hernia. Small bowel loops: Normal caliber and wall thickness. Colon: Diverticula. Normal caliber and wall thickness. Normal RLQ appendix. Nodes: No enlarged nodes. Peritoneum: No ascites. No free intraperitoneal air. Urinary bladder: Unremarkable. Uterus: Unremarkable. Adnexa: No masses. Bones: No acute bony abnormality. Soft tissues: Unremarkable. Unopacified abdominal aorta: No aneurysmal dilatation. IMPRESSION: 1. Left double-J ureteral stent in place. Ureteral stones no longer present. 2. Improving but persistent hydronephrosis left kidney. 3. Otherwise no acute abnormality significant change. Reviewed, dictated and finalized at location R. ONAL SALES CONSULTANT
--- OUTSIDE RECORDS SUMMARY | 2025-03-31 10:16 | XMS_ITS | Clinical Summary ---
Author Organization [facility] Address [address] [place] [address] Phone Care Team Providers Care Spar Finisher Name Role Phone Daly Pinto NP Primary Care Provider Allergies Active Allergy Reactions Criticality Noted Date [...] exists Insurance [employer] MEDICARE Care Teams Spar Finisher Relationship Specialty Start Date End Date Daly Pinto NP [address] [address] PCP - General Family Medicine 10/19/18
--- OUTSIDE RECORDS SUMMARY | 2025-03-31 10:16 | XMS_ITS | Clinical Summary ---
Author Organization [facility] Address [address] [place] [address] Care Team Providers Care Product Coordinator Name Role Phone Fabiola Melo MD Unavailable [phone] Brittany Elias MD Primary Care Provider Source Comments [facility],non-owned Affiliates and Associated Physician Practices is amultiple site organization consisting of ambulatory clinics and hospital sitesin [place], [place], [place] and [place]. This disclosure is being madepursuant to the Care Everywhere program and may not contain all information available regarding this patient. 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 Gender Identity Not on file Sexual Orientation [...] this topic Medical Devices Implanted Type Area Pc Analyst Device Identifier Shelf Expiration Date Model / Serial / Lot Cmnt Bone Cblt 40gm Hvisc Strl Implanted:Qty: 1 on 02/11/2018 by Toño Johnston MD at [facility] Left: Knee [employer] 02/21/2019 600-15-000 / / [id number] Cmpnt Ptlr 28mm 1 Pg Wire Ascnt Arcm Kn Implanted:Qty: 1 on 02/11/2018 by Toño Johnston MD at [facility] Left: Knee [employer] 01/29/2023 [id number] / / [id number] Tray Tib 71mm Kn Cocr I Beam Implanted:Qty: 1 on 02/11/2018 by Toño Johnston MD at [facility] Left: Knee [employer] 12/02/2027 [id number] / / [id number] Cmpnt Fem Kn Lt Cr Cmnt Prm Vngrd Intlk Implanted:Qty: 1 on 02/11/2018 by Toño Johnston MD at [facility] Left: Knee [employer] 10/21/2027 [id number] / / [id number] Brng 02teq28mt Vngrd Arcm Kn Ant Stab Implanted:Qty: 1 on 02/11/2018 by Toño Johnston MD at [facility] Left: Knee [employer] 12/22/2022 [id number] / / [id number] Procedures Procedure Name Priority Date/Time Associated Diagnosis [...] LAB - CHEMISTRY ORDERABLES Fi nal Result [facility] [address] [place] [address] from Last 3 Months or Most Recently Relevant to Health Maintenance Insurance [facility] MANAGED MEDICARE ADV SELF PAY NO INSURANCE Member Subscriber Plan / Payer (Ef fective for All Dates) Name:Jacob Monson Member ID:Not on file Relation to Subscriber:Not on file Name:JACOB MONSON Subscriber ID:Not on file (Home) Address: [address] [place] [address] Payer ID:Not on file Group ID:Not on file Type:Self Pay Address: [place], [place] * Guarantor: JACOB MONSON Account Type Relation to Patient Date of Phone Billing Address Personal/Family 1955 [address] [phone] Advance Directives * Full Code (Latest Code Status on File) Date Activated Date Inactivated Comments 02/11/2018 11:11 AM 02/14/2018 1:10 PM Care Teams Product Coordinator Relationship Specialty Start Date End Date Brittany Elias MD [address] [place] [phone] PCP - General 05/26/19 [place] [address] [address] Orthopedic Surgery 06/06/14
--- OUTSIDE RECORDS SUMMARY | 2025-03-31 10:16 | XMS_ITS | Clinical Summary ---
Author Organization [facility] Address [facility] [place] [address] Care Team Providers Care Animal Health Technician Name Role Phone Unavailable Primary Care Provider [...]
--- OUTSIDE RECORDS SUMMARY | 2025-03-31 10:16 | XMS_ITS | Clinical Summary ---
Author Organization [facility] Address [address] [place] [address] Phone Care Team Providers Care Finish Opener Name Role Phone Daly Pinto HAT BLOCKING MACHINE OPERATOR, HOUSING INSTALLER Primary Care Pro vider Medications Aspirin 81 [...] Comments Blood Pressure 130/86 04/08/2019 8:56 AM SOLDERER ASSEMBLER Pulse 70 04/08/2019 8:56 AM SOLDERER ASSEMBLER Temperature - - Respiratory Rate - - Oxygen Saturation 98% 04/08/2019 8:56 AM SOLDERER ASSEMBLER Inhaled Oxygen Concentration - - Weight 108 kg (238 lb) 04/08/2019 8:56 AM SOLDERER ASSEMBLER Height 160 cm (5' 3) 04/08/2019 8:56 AM SOLDERER ASSEMBLER Body Mass Index 42.16 04/08/2019 8:56 AM SOLDERER ASSEMBLER Plan of Treatment Health Maintenance Due Date [...] Maintenance Insurance [facility] Care Teams Finish Opener Relationship Specialty Start Date End Date Daly Pinto APRN, HOUSING INSTALLER [address] [place] [address] PCP - General Certified Nurse Practitioner 11/02/18
== END 2025-03-31 09:33 | disposition home or self-care (01) ==
PROVIDERS: PCP Family Medicine; Visit Provider Urology
DX: N13.2 Hydronephrosis with renal and ureteral calculous obstruction (principal); Z96.0 Presence of urogenital implants
CPT/HCPCS: 74176